=== PATIENT | female | born 1950 | race Caucasian/White ===

== ENCOUNTER 2016-09-30 12:08 | Emergency (ER) | payer OTHER ==
[~2016-09-30] VITALS: Ht 165.1 cm; Wt 119.3 kg
[~2016-09-30 12:08] MED LIST: ACET325T9 PO; ALPR0.25 PO; AMLO5TAB2 PO; AZIT250T6 PO; CYCL5TAB PO; DIAZ5TAB PO; DICL1PAT4 TD; DICY20TA3 PO; DIPH25CA58 PO; DOXY100T PO; DULO60CA6 PO; ENOX100D SQ; EZET1TAB18 PO; EZET1TAB5 PO; FLUDROCORTISONE ACETATE PO; FLUT1DIS3 IH; Guaifenesin/Dextromethorphan PO; HYDR-2666 PO; HYDR-2679 PO; HYDR-971 PO; Hydrocodone Bit/Acetaminophen PO; INSU100I18 SQ; INSU100V13 SQ; Ipratropium/Albuterol Sulfate NEB; LISI40TA PO; LUBI8CAP3 PO; MECL25TA3 PO; METF500T3 PO; METF750T2 PO; METO100T11 PO; METO25TA9 PO; MONT10TA6 PO; NITR100C62 PO; NYST60PO TP; ONDA4TAB7 PO; PRED-220 PO; PRED20TA PO; RANI150T6 PO; SIME80TA PO; TIOT18CA IH; WARF10TA PO; XOPENEX HFA15 GM IH
[2016-09-30] MEDS ORDERED: PROCHLORPERAZINE 10 MG/2 ML VIAL. IV ONE (14:00)
[2016-09-30] MEDS ORDERED: MECLIZINE HCL 12.5 MG TABLET. PO ONE (14:00)
[2016-09-30] MEDS ORDERED: ACETAMINOPHEN 500 MG TABLET PO ONE (14:00)
--- NOTE | 2016-09-30 14:15 | PHYS DOC ---
Past Medical History Past Medical History: Asthma, COPD, Diabetes-Type II, High Cholesterol, Hypertension, Migraines, Other Additional Past Medical Histor: sleep apnea; PE, chronic abdominal pain Past Surgical History: Appendectomy, Cholecystectomy, Colectomy, Hysterectomy Additional Past Surgical Histo: breast biopsies; bx cataracts; bx shoulders; umbilical hernia Alcohol Use: None Drug Use: None Adult General Chief Complaint Chief Complaint: DIZZY/LIGHT HEADED HPI HPI Patient is a 66 year old female who presents with 5 months of headache and intermittent dizziness. She states she has constant headache that fluctuates in intensity, but never resolves. She states these headaches do not wake her from sleep, but she does wake up with headaches. She takes Tylenol with some intermittent improvement. She has bilateral anterior achy headache. States dizziness usually lasts seconds at a time and is associated with position changes of her head. States she was evaluated for this prior and treated with meclizine with some improvement in her dizziness. She has not since followed up with anyone other than her primary care doctor for this. States she has not had imaging during her symptoms. She denies nausea or vomiting, numbness, tingling, weakness, vision changes, resting dizziness, chest pain, palpitations, orthopnea , exertional symptoms. His neck pain or manipulation. Review of Systems Review of Systems Constitutional: Denies fever or chills [] Eyes: Denies change in visual acuity, redness, or eye pain [] HENT: Denies nasal congestion or sore throat [] Respiratory: Denies cough or shortness of breath [] Cardiovascular: No additional information not addressed in HPI [] GI: Denies abdominal pain, nausea, vomiting, bloody stools or diarrhea [] : Denies dysuria or hematuria [] Musculoskeletal: Denies back pain or joint pain [] Integument: Denies rash or skin lesions [] Neurologic: Denies focal weakness or sensory changes [] Endocrine: Denies polyuria or polydipsia [] Current Medications Current Medications Current Medications Medications (Trade) Dose Ordered Sig/Irish Start Time Stop Time Status Last Admin Dose Admin Acetaminophen (Tylenol) 500 mg 1X ONCE 09/30/16 14:00 09/30/16 14:01 DC 09/30/16 14:04 500 MG Meclizine HCl (Antivert) 25 mg 1X ONCE 09/30/16 14:00 09/30/16 14:01 DC 09/30/16 14:04 25 MG Morphine Sulfate 2 mg 1X ONCE 09/30/16 17:15 09/30/16 17:16 DC 09/30/16 17:41 2 MG Prochlorperazine Edisylate (Compazine) 10 mg 1X ONCE 09/30/16 14:00 09/30/16 14:01 DC 09/30/16 15:06 10 MG Allergies Allergies Allergies Coded Allergies Type Severity Reaction Last Updated Verified Penicillins Allergy Intermediate itching, dry mouth, tongue swells 12/16/15 Yes Sulfa (Sulfonamide Antibiotics) Allergy Intermediate ITCHING DRY MOUTH, hives/ swelling 12/16/15 Yes fentanyl Allergy Intermediate 12/16/15 Yes hydromorphone HCl Allergy Intermediate MORPHINE OK 12/16/15 Yes methylprednisolone Allergy Intermediate RED MAN SYNDROME 03/22/16 No prednisone Allergy Intermediate RED MED SYNDROME 03/22/16 No oxycodone HCl Adverse Reaction Intermediate "i FEEL LIKE I HAVE WORMS IN ME" Yes Physical Exam Physical Exam Constitutional: Well developed, well nourished, no acute distress, non-toxic appearance. [] HENT: Normocephalic, atraumatic, bilateral external ears normal, oropharynx moist, no oral exudates, nose normal. [] Eyes: PERRLA, EOMI, conjunctiva normal, no discharge. [] Neck: Normal range of motion, supple. [] Cardiovascular:Heart rate regular rhythm [] Lungs & Thorax: Bilateral breath sounds clear to auscultation [] Abdomen: Bowel sounds normal, soft, no tenderness. [] Skin: Warm, dry, no erythema, no rash. [] Back: Normal range of motion. [] Extremities: ROM intact, no edema. [] Neurologic: Alert and oriented X 3, normal motor function, normal sensory function, no focal deficits noted, cranial nerves II through XII intact, no extremity drift, normal Romberg, ambulatory with steady gait. [] Psychologic: Affect normal, judgement normal, mood normal. [] Current Patient Data Vital Signs Vital Signs Date Time Temp Pulse Resp B/P Pulse Ox O2 Delivery O2 Flow Rate FiO2 09/30/16 17:45 77 22 128/62 Room Air 09/30/16 17:41 95 09/30/16 13:15 98.1 98.1 Lab Values Laboratory Tests Test 09/30/16 14:35 09/30/16 15:57 White Blood Count 7.5x10^3/uL (4.0-11.0) Red Blood Count 4.73x10^6/uL (3.50-5.40) Hemoglobin 13.1g/dL (12.0-15.5) Hematocrit 40.1% (36.0-47.0) Mean Corpuscular Volume 85fL (79-100) Mean Corpuscular Hemoglobin 28pg (25-35) Mean Corpuscular Hemoglobin Concent 33g/dL (31-37) Red Cell Distribution Width 15.5% (11.5-14.5) H Platelet Count 271x10^3/uL (140-400) Neutrophils (%) (Auto) 54% (31-73) Lymphocytes (%) (Auto) 37% (24-48) Monocytes (%) (Auto) 6% (0-9) Eosinophils (%) (Auto) 2% (0-3) Basophils (%) (Auto) 1% (0-3) Neutrophils # (Auto) 4.0x10^3uL (1.8-7.7) Lymphocytes # (Auto) 2.7x10^3/uL (1.0-4.8) Monocytes # (Auto) 0.4x10^3/uL (0.0-1.1) Eosinophils # (Auto) 0.2x10^3/uL (0.0-0.7) Basophils # (Auto) 0.1x10^3/uL (0.0-0.2) Sodium Level 136mmol/L (136-145) Potassium Level 3.5mmol/L (3.5-5.1) Chloride Level 99mmol/L (98-107) Carbon Dioxide Level 28mmol/L (21-32) Anion Gap 9 (6-14) Blood Urea Nitrogen 17mg/dL (7-20) Creatinine 0.8mg/dL (0.6-1.0) Estimated GFR (Cockcroft-Gault) 72.0 Glucose Level 277mg/dL (70-99) H Calcium Level 9.0mg/dL (8.5-10.1) Prothrombin Time 26.1SEC (11.7-14.0) H Prothrombin Time INR 2.6 (0.8-1.1) H PTT 43SEC (24-38) H Laboratory Tests 09/30/16 14:35 Laboratory Tests 09/30/16 14:35 EKG EKG EKG as interpreted by me as normal sinus rhythm, rate 85, no ST-T changes, normal intervals, no ectopy Radiology/Procedures Radiology/Procedures Head CT without contrast Impression: There is no evidence of an acute intracranial abnormality. DICTATED and SIGNED BY: HODA HOGAN MD DATE: 09/30/16 1527 Course & Med Decision Making Course & Med Decision Making Pertinent Labs and Imaging studies reviewed. (See chart for details) Workup is unremarkable including therapeutic INR. She is feeling better after medications and would like to go home. Encouraged follow-up with primary care and neurology clinic. Return precautions given. She understands and agrees plan. Dragon Disclaimer Dragon Disclaimer This electronic medical record was generated, in whole or in part, using a voice recognition dictation system. Departure Departure Impression: Primary Impression: Headache Additional Impression: Dizziness Disposition: 01 HOME, SELF-CARE Condition: STABLE Referrals: Meagan ALVAREZ MD (PCP) RUSS TINAJERO MD Patient Instructions: General Headache Without Cause, [id number], Vertigo, [id number] Additional Instructions: Take meclizine to help with dizziness. Take tylenol as needed for pain. Follow up with your primary care doctor and neurology clinic. Please call for appointment. Return for any concerns. Scripts Meclizine Hcl 25 Mg Tablet1 Tab PO PRN TID PRN DIZZINESS #20 TAB Prov:Kenan CURRY MD 09/30/16 Problem Qualifiers Primary Impression: Headache Headache type: unspecified Headache chronicity pattern: chronic headache Intractability: not intractable Qualified Code: R51 - Headache Kenan CURRY MD Sep 30, 2016 14:15
[2016-09-30 14:55] LABS: BASO # 0.1 x10^3/uL (0.0-0.2); BASO % 1 % (0-3); EOS % 2 % (0-3); HEMATOCRIT 40.1 % (36.0-47.0); HEMOGLOBIN 13.1 g/dL (12.0-15.5); LYMPH # 2.7 x10^3/uL (1.0-4.8); LYMPH % 37 % (24-48); MEAN CORPUSCULAR HEMOGLOBIN 28 pg (25-35); MEAN CORPUSCULAR HGB CONC 33 g/dL (31-37); MEAN CORPUSCULAR VOLUME 85 fL (79-100); MONO % 6 % (0-9); NEUT % 54 % (31-73); PLATELET COUNT 271 x10^3/uL (140-400); RED BLOOD COUNT 4.73 x10^6/uL (3.50-5.40); RED CELL DISTRIBUTION WIDTH 15.5 % (11.5-14.5); WHITE BLOOD COUNT 7.5 x10^3/uL (4.0-11.0)
[2016-09-30 15:13] LABS: CREATININE 0.8 mg/dL (0.6-1.0); POTASSIUM 3.5 mmol/L (3.5-5.1)
--- NOTE | 2016-09-30 15:32 | RAD ---
Head CT without contrast History:5 month anterior headache; intermittent dizziness Technique: Noncontrast CT imaging was acquired of the head. [facility] Compliance Statement: One or more of the following individualized dose reduction techniques were utilized for this examination: 1. Automated exposure control 2. Adjustment of the mA and/or kV according to patient size 3. Use of iterative reconstruction technique Comparison: 04/10/2013 Findings: The ventricles, sulci, and cisterns are within normal limits in size and configuration. There is no significant mass-effect, midline shift, or abnormal extra-axial fluid collection. There is no evidence of acute parenchymal or extraaxial hemorrhage. The visualized paranasal sinuses and mastoid air cells are aerated. No significant osseous abnormality is identified. Impression: There is no evidence of an acute intracranial abnormality.
[2016-09-30 16:15] LABS: INR 2.6 (0.8-1.1); PROTHROMBIN TIME PATIENT 26.1 SEC (11.7-14.0)
[2016-09-30] MEDS ORDERED: MECL25TA3 PO (17:10)
[2016-09-30] MEDS ORDERED: MORPHINE SULFATE 2 MG/ML DISP.SYRIN. IV ONE (17:15)
[2016-09-30 17:45] VITALS: BP 128/62
--- NOTE | 2016-10-01 08:01 | EKG ---
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
== END 2016-09-30 17:50 | disposition home or self-care (01) ==
LOC: ER 12:08
DX: R42 Dizziness and giddiness (principal); R51 Headache; M54.2 Cervicalgia; E11.9 Type 2 diabetes mellitus without complications; E78.00 Pure hypercholesterolemia, unspecified; I10 Essential (primary) hypertension; J44.9 Chronic obstructive pulmonary disease, unspecified; G89.29 Other chronic pain; J45.909 Unspecified asthma, uncomplicated; G43.909 Migraine, unspecified, not intractable, without status migrainosus; G47.30 Sleep apnea, unspecified; Z90.710 Acquired absence of both cervix and uterus; Z90.49 Acquired absence of other specified parts of digestive tract; Z98.42 Cataract extraction status, left eye; Z98.41 Cataract extraction status, right eye; Z86.711 Personal history of pulmonary embolism; Z88.2 Allergy status to sulfonamides; Z88.5 Allergy status to narcotic agent; Z88.0 Allergy status to penicillin
CPT/HCPCS: 36415; 70450; 80048; 85027; 85610; 85730; 93005; 96374; 96375; 99285; J0780; J2270; J8597

== ENCOUNTER 2016-10-04 13:46 | Inpatient (IN) | payer OTHER ==
[~2016-10-04] VITALS: Ht 165.1 cm; Wt 108.2 kg
[2016-10-04] MEDS ORDERED: IPRATRPIUM/ALBUTEROL 0.5/2.5MG 3 ML NEBU. NEB ONE (14:45)
[2016-10-04] MEDS ORDERED: IV NORMAL SALINE 500ML BAG 500 ML IV ONE (14:45)
[2016-10-04] MEDS ORDERED: DIPHENHYDRAMINE HCL 25 MG CAPSULE PO ONE (14:45)
[2016-10-04] MEDS ORDERED: PREDNISONE 20 MG TABLET PO ONE (14:45)
--- NOTE | 2016-10-04 15:00 | EKG ---
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
[2016-10-04] MEDS ORDERED: ALBUTEROL SULFATE 2.5 MG/3 ML NEBU. ONE (15:26)
[2016-10-04] MEDS ORDERED: ALBUTEROL SULFATE 2.5 MG/3 ML NEBU. CONT NEB ONE (15:30)
--- NOTE | 2016-10-04 15:40 | PHYS DOC ---
Past Medical History Past Medical History: Asthma, COPD, Diabetes-Type II, High Cholesterol, Hypertension, Migraines, Other Additional Past Medical Histor: sleep apnea; PE, chronic abdominal pain Past Surgical History: Appendectomy, Cholecystectomy, Colectomy, Hysterectomy Additional Past Surgical Histo: breast biopsies; bx cataracts; bx shoulders; umbilical hernia Alcohol Use: None Drug Use: None Adult General Chief Complaint Chief Complaint: SHORTNESS OF BREATH HPI HPI Patient is a 66 year old female who presents with cough and difficulty breathing. States she has been having a dry cough for 1-2 weeks associated with rhinorrhea, nasal congestion, body aches, and chills. States most of her symptoms have improved, other than persistent cough and difficulty breathing. Difficulty breathing has developed over the past few days. She has associated diffuse chest tightness that is typical for her symptoms when she gets like this. She denies sputum production, sore throat, sick contacts, nausea or vomiting, diarrhea, hemoptysis, leg pain or swelling, orthopnea. Has been using inhalers at home without complete relief in symptoms. Review of Systems Review of Systems Constitutional: Denies fever or chills [] Eyes: Denies change in visual acuity, redness, or eye pain [] HENT: Denies nasal congestion or sore throat [] Respiratory: Has cough and shortness of breath [] Cardiovascular: No additional information not addressed in HPI [] GI: Denies abdominal pain, nausea, vomiting, bloody stools or diarrhea [] : Denies dysuria or hematuria [] Musculoskeletal: Denies back pain or joint pain [] Integument: Denies rash or skin lesions [] Neurologic: Denies headache, focal weakness or sensory changes [] Endocrine: Denies polyuria or polydipsia [] Current Medications Current Medications Current Medications Medications (Trade) Dose Ordered Sig/Irish Start Time Stop Time Status Last Admin Dose Admin Albuterol Sulfate (Ventolin Neb Soln) 10 mg 1X ONCE 10/04/16 15:30 10/04/16 15:31 DC 10/04/16 15:30 10 MG Albuterol/ Ipratropium 3 ml 3 ml 1X ONCE 10/04/16 14:45 10/04/16 14:53 DC 10/04/16 15:11 3 ML Diphenhydramine HCl (Benadryl) 25 mg 1X ONCE 2/16/17 14:45 10/04/16 14:53 DC 10/04/16 16:59 25 MG Prednisone (Prednisone) 60 mg 1X ONCE 10/04/16 14:45 10/04/16 14:56 DC 10/04/16 16:59 60 MG Sodium Chloride (Iv Sodium Chloride 0.9% 500ml Bag) 500 ml @ 500 mls/hr 1X ONCE 10/04/16 14:45 10/04/16 15:44 DC 10/04/16 17:00 500 MLS/HR Allergies Allergies Allergies Coded Allergies Type Severity Reaction Last Updated Verified Penicillins Allergy Intermediate itching, dry mouth, tongue swells 12/16/15 Yes Sulfa (Sulfonamide Antibiotics) Allergy Intermediate ITCHING DRY MOUTH, hives/ swelling 12/16/15 Yes fentanyl Allergy Intermediate 12/16/15 Yes hydromorphone HCl Allergy Intermediate MORPHINE OK 12/16/15 Yes methylprednisolone Allergy Intermediate RED MAN SYNDROME 03/22/16 No prednisone Allergy Intermediate RED MED SYNDROME 03/22/16 No oxycodone HCl Adverse Reaction Intermediate "i FEEL LIKE I HAVE WORMS IN ME" Yes Physical Exam Physical Exam Constitutional: Well developed, well nourished, moderate distress, non-toxic appearance. [] HENT: Normocephalic, atraumatic, bilateral external ears normal, oropharynx moist, no oral exudates, nose normal. [] Eyes: PERRLA, EOMI, conjunctiva normal, no discharge. [] Neck: Normal range of motion, supple, no stridor. [] Cardiovascular:Heart rate regular rhythm [] Lungs & Thorax: Bilateral wheezing with good aeration, mild tachypnea, no crackles [] Abdomen: Bowel sounds normal, soft, no tenderness. [] Skin: Warm, dry, no erythema, no rash. [] Back: No tenderness, no CVA tenderness. [] Extremities: No tenderness, ROM intact, no edema. [] Neurologic: Alert and oriented X 3, normal motor function, normal sensory function, no focal deficits noted. [] Psychologic: Affect normal, judgement normal, mood normal. [] Current Patient Data Vital Signs Vital Signs Date Time Temp Pulse Resp B/P Pulse Ox O2 Delivery O2 Flow Rate FiO2 10/04/16 15:33 Room Air 10/04/16 15:24 102 225/97 93 10/04/16 14:10 98.3 16 98.3 Lab Values Laboratory Tests Test 10/04/16 13:25 Influenza Type A Antigen Negative (NEGATIVE) Influenza Type B Antigen Negative (NEGATIVE) EKG EKG EKG as interpreted by me as normal sinus rhythm, rate 98, no ST-T changes, normal intervals, no ectopy Radiology/Procedures Radiology/Procedures Chest xray as interpreted by me with no acute cardiopulmonary disease process Course & Med Decision Making Course & Med Decision Making Pertinent Labs and Imaging studies reviewed. (See chart for details) Workup is unremarkable other than mild hypokalemia which is replaced by mouth. She has persistent dyspnea despite albuterol treatments here. She has a few episodes of brief syncope-type spells. One of these was witnessed by me, where she closes her eyes, has calmed breathing, lays in bed relaxed, and acts as if she is asleep. This lasts for approximately 1 minute, then she wakes as if nothing happened. With persistent dyspnea, will admit for asthma exacerbation. Discussed care with Dr. Alvarez, who will admit. Dragon Disclaimer Dragon Disclaimer This electronic medical record was generated, in whole or in part, using a voice recognition dictation system. Departure Departure Impression: Primary Impression: Asthma exacerbation Additional Impression: Hypokalemia Disposition: ADMITTED INPATIENT Condition: STABLE Referrals: Meagan ALVAREZ MD (PCP) Problem Qualifiers Kenan CURRY MD Oct 04, 2016 15:39
--- NOTE | 2016-10-04 15:54 | RAD ---
INDICATION: dyspnea COMPARISON: 03/22/2016 FINDINGS: Single view of chest obtained. Bilateral postoperative changes to the shoulders. Hypoexpanded exam with mild interstitial prominence bilaterally. No definite focal airspace consolidation. Degenerative changes spine IMPRESSION: Hypoexpanded appearance of the lungs with interstitial prominence. Could be from vascular crowding but mild vascular congestion is possible.
[2016-10-04 15:56] LABS: OBC FLU VALID
[2016-10-04 16:35] LABS: BASO % 1 % (0-3); EOS % 2 % (0-3); HEMATOCRIT 43.8 % (36.0-47.0); HEMOGLOBIN 14.2 g/dL (12.0-15.5); LYMPH # 3.5 x10^3/uL (1.0-4.8); LYMPH % 43 % (24-48); MEAN CORPUSCULAR HEMOGLOBIN 28 pg (25-35); MEAN CORPUSCULAR HGB CONC 33 g/dL (31-37); MEAN CORPUSCULAR VOLUME 85 fL (79-100); MONO % 7 % (0-9); NEUT % 48 % (31-73); PLATELET COUNT 266 x10^3/uL (140-400); RED BLOOD COUNT 5.14 x10^6/uL (3.50-5.40); RED CELL DISTRIBUTION WIDTH 15.4 % (11.5-14.5); WHITE BLOOD COUNT 8.3 x10^3/uL (4.0-11.0)
[2016-10-04 16:43] LABS: INR 1.3 (0.8-1.1); PROTHROMBIN TIME PATIENT 15.4 SEC (11.7-14.0)
[2016-10-04] MEDS: ONDANSETRON PF 4 MG/2 ML VIAL. IV PRN (16:59)
[2016-10-04 17:01] LABS: CALCIUM 9.2 mg/dL (8.5-10.1); CREATININE 0.8 mg/dL (0.6-1.0); POTASSIUM 3.1 mmol/L (3.5-5.1)
[2016-10-04] MEDS ORDERED: POTASSIUM CHLORIDE 20 MEQ TABLET.ER. PO ONE (17:15)
--- NOTE | 2016-10-04 18:16 | ACF ---
Admission Forms Criteria ASTHMA Clinical Indications for Admission to Inpatient Care (Place 'X' for any and all applicable criteria): Admission is indicated for ANY ONE of the following (1)(2)(3)(4)(5): [ ]I. Absent or markedly diminished breath sounds (silent chest) [ ]II. Oxygen saturation < 92% [ ]III. PaCO2 = / > 42 mm Hg (5.6 kPa) [ ]IV. Peak expiratory flow rate < 40% of predicted or personal best after treatment. [ ]V. Peak expiratory flow rate < 33% of predicted or personal before after treatment [ ]. Change in mental status [ ]VII. Ventilatory support required [ ]VIII. PaO2 < 60 mm Hg (8.0 kPa) [ ]IX. Cyanosis [ ]X. Cardiac dysrhythmia (e.g., bradycardia) [ ]XI. Hemodynamic instability [ ]XII. Radiographic evidence of complication requiring inpatient treatment (e.g., pneumonia, pneumothorax) [X]XIII. Inpatient admission required rather than observation care (also use Asthma: Observation Care guideline as appropriate) because of ANY ONE of the following: [ ]a) Respiratory finding that is severe or persistent (eg, dyspnea, tachypnea, accessory muscle use) [ ]b) Airflow measurements less than 60% of predicted or personal best that persist (e.g., over 24 hours) or worsen despite treatments [ ]c) Supplemental oxygen or respiratory treatments for over 24 hours that are performable only in acute inpatient setting [X]d) Other condition, treatment or monitoring requiring inpatient admission. Extended stay beyond goal length of stay may be needed for (26)(27)(28): [ ]a) Severe respiratory failure (23) (29) (30) [ ]b) Secondary causes and complications (25) [ ]c) Status asthmaticus [ ]d) Chronic obstructive asthma [ ]e) Older patients (29) [ ]f) Slow resolution [ ]g) Clinically significant exacerbation of comorbidities (eg, jacques. heart failure, atrial fibrillation) The original [employer] content created by [employer] has been revised. The portions of the content which have been revised are identified through the use of italic text or in bold, and [facility] [employer] has neither reviewed nor approved the modified material. All other unmodified content is copyright [employer] [facility] Please see references footnoted in the original [facility] edition 2016 Admission Criteria Met?: Yes AYDE COLEMAN Oct 04, 2016 18:16
[2016-10-04 19:00] VITALS: BP 131/50
[2016-10-04] MEDS ORDERED: INSU100I17 SQ (19:38)
[2016-10-04] MEDS ORDERED: INSU100V13 SQ (19:38)
[2016-10-04] MEDS ORDERED: PNEUMOCOCCAL VAX SCREEN BY RX. MC ONE (20:30)
[2016-10-04] MEDS ORDERED: GUAIFENESIN DM 200MG/20MG 10 ML SYRUP. PO PRN (20:45)
[2016-10-04] MEDS ORDERED: MECLIZINE HCL 12.5 MG TABLET. PO PRN (21:00)
[2016-10-04] MEDS: LISINOPRIL 20 MG TABLET PO SCH (21:00)
[2016-10-04] MEDS: AMLODIPINE BESYLATE 5 MG TABLET PO SCH (21:00)
[2016-10-04] MEDS ORDERED: ALBUTEROL SULFATE 2.5 MG/3 ML NEBU. NEB PRN (21:00)
[2016-10-04] MEDS: METOPROLOL SUCC 24HR ER 25 MG TAB.ER.24H. PO SCH (21:00)
[2016-10-04] MEDS: BUDESONIDE 0.5 MG/2 ML NEBU NEB SCH (21:46)
[2016-10-04] MEDS: EZETIMIBE 10 MG TABLET PO SCH (22:06)
[2016-10-04] MEDS: FAMOTIDINE 20 MG TABLET. PO SCH (22:06)
[2016-10-04] MEDS: LUBIPROSTONE 8 MCG CAPSULE PO SCH (22:06)
[2016-10-04] MEDS: DICYCLOMINE HCL 10 MG CAPSULE PO SCH (22:06)
[2016-10-04] MEDS: MONTELUKAST SODIUM 10 MG TABLET. PO SCH (22:06)
[2016-10-04] MEDS: SIMVASTATIN 10 MG TABLET PO SCH (22:06)
[2016-10-04] MEDS: WARFARIN 10 MG TABLET. PO SCH (22:07)
[2016-10-04] MEDS: CYCLOBENZAPRINE 10 MG TABLET. PO SCH (22:07)
[2016-10-04] MEDS: IPRATRPIUM/ALBUTEROL 0.5/2.5MG 3 ML NEBU. NEB SCH (22:11)
[2016-10-04 23:03] VITALS: BP 149/56
[2016-10-04] MEDS: INSULIN DETEMIR 300 UNITS/3 ML INSULN.PEN. SQ SCH (23:48)
[2016-10-04] MEDS: ACETAMINOPHEN 325 MG TABLET. PO PRN (23:50)
[2016-10-05 03:00] VITALS: BP 195/93
[2016-10-05] MEDS: ACETAMINOPHEN 325 MG TABLET. PO PRN ×2 (06:35→21:31)
[2016-10-05] MEDS: INSULIN ASPART 300 UNITS/3 ML INSULN.PEN SQ SCH ×3 (07:30→17:06)
[2016-10-05 07:32] VITALS: BP 133/62
[2016-10-05] MEDS: IPRATRPIUM/ALBUTEROL 0.5/2.5MG 3 ML NEBU. NEB SCH ×5 (07:57→20:15)
[2016-10-05] MEDS: BUDESONIDE 0.5 MG/2 ML NEBU NEB SCH ×2 (07:57→20:15)
[2016-10-05] MEDS: INSULIN DETEMIR 300 UNITS/3 ML INSULN.PEN. SQ SCH ×2 (08:00→21:38)
[2016-10-05] MEDS: FAMOTIDINE 20 MG TABLET. PO SCH ×2 (08:49→20:21)
[2016-10-05] MEDS: CYCLOBENZAPRINE 10 MG TABLET. PO SCH ×3 (08:49→20:21)
[2016-10-05] MEDS: LUBIPROSTONE 8 MCG CAPSULE PO SCH ×2 (08:50→16:58)
[2016-10-05] MEDS: METOPROLOL SUCC 24HR ER 25 MG TAB.ER.24H. PO SCH (08:50)
[2016-10-05] MEDS: LISINOPRIL 20 MG TABLET PO SCH (08:50)
[2016-10-05] MEDS: AMLODIPINE BESYLATE 5 MG TABLET PO SCH (08:50)
[2016-10-05] MEDS: DICYCLOMINE HCL 10 MG CAPSULE PO SCH ×3 (08:50→20:22)
[2016-10-05] MEDS: DULOXETINE HCL 30 MG CAPSULE.DR. PO SCH (08:55)
[2016-10-05] MEDS ORDERED: PNEUMOC VACCINE 13-VALENT 0.5 ML DISP.SYRIN. VAX IM ONE (09:00)
[2016-10-05] MEDS ORDERED: NON FORMULARY ITEM (Tiotropium Bromide (Spiriva) 18 MCG) IH SCH (09:00)
[2016-10-05] MEDS: ONDANSETRON PF 4 MG/2 ML VIAL. IV PRN (09:15)
[2016-10-05 11:05] VITALS: BP 129/60
[2016-10-05] MEDS: ENOXAPARIN ** NOTE DOSE ** SYRINGE SQ SCH ×2 (14:46→20:25)
[2016-10-05 15:05] VITALS: BP 122/48
[2016-10-05] MEDS: WARFARIN 10 MG TABLET. PO SCH (16:59)
--- NOTE | 2016-10-05 17:07 | PDOC1 ---
History and Physical Date of Admission Date of Admission DATE: 10/04/16 TIME: 16:54 Identification/Chief Complaint Chief Complaint She was in the ER Saturday with viral symptoms and then started wheezing and came back to ER and admitted with asthma exac. She received steroids in the ER and is hyperglycemic but her breathing is much improved since admission but she has not yet been out of bed. She was able to sleep last night and her chest tightness has resolved Source Source: Patient History of Present Illness History of Present Illness as above Past Medical History Cardiovascular: CAD, HTN Pulmonary: Asthma, COPD, Pulmonary embolus, Other GI: GERD Endocrine: Diabetes, Other Past Surgical History Past Surgical History: Appendectomy, Breast Biopsy, Cholecystectomy, Cataract Removal, Hernia Repair, Tonsillectomy, Hysterectomy, Other (multiple abdominal surgeries) Family History Family History: Coronary Artery Disease, Diabetes Social History ALCOHOL: none Drugs: None Current Problem List Problem List Problems Medical Problems: (1) Asthma exacerbation Status: Acute (2) Hypokalemia Status: Acute Problems: Current Medications Current Medications Current Medications Albuterol/ Ipratropium 3 ml 3 ml 1X ONCE NEB Last administered on 10/04/16 15 :11; Start 10/04/16 at 14:45; Stop 10/04/16 at 14:53; Status DC Sodium Chloride (Iv Sodium Chloride 0.9% 500ml Bag) 500 ml @ 500 mls/hr 1X ONCE IV Last administered on 10/04/16 17:00; Start 10/04/16 at 14:45; Stop at 15:44; Status DC Diphenhydramine HCl (Benadryl) 25 mg 1X ONCE PO Last administered on 16:59; Start 10/04/16 at 14:45; Stop 10/04/16 at 14:53; Status DC Prednisone (Prednisone) 60 mg 1X ONCE PO Last administered on 10/04/16 16:59 ; Start 10/04/16 at 14:45; Stop 10/04/16 at 14:56; Status DC Albuterol Sulfate (Ventolin Neb Soln) 2.5 mg STK-MED ONCE .ROUTE ; Start at 15:26; Stop 10/04/16 at 15:27; Status DC Albuterol Sulfate (Ventolin Neb Soln) 10 mg 1X ONCE CONT NEB Last administered on 10/04/16 15:30; Start 10/04/16 at 15:30; Stop 10/04/16 at 15:31 ; Status DC Ondansetron HCl (Zofran) 4 mg PRN Q8HRS PRN IV NAUSEA/VOMITING Last administered on 10/05/16 09:15; Start 10/04/16 at 16:00; Stop 10/05/16 at 15:59 ; Status DC Acetaminophen (Tylenol) 650 mg PRN Q4HRS PRN PO FEVER Last administered on 10/05 06:35; Start 10/04/16 at 16:00; Stop 10/05/16 at 15:59; Status DC Potassium Chloride (Klor-Con) 40 meq 1X ONCE PO Last administered on 17:15; Start 10/04/16 at 17:15; Stop 10/04/16 at 17:16; Status DC Pneumococcal Polyvalent Vaccine (Do NOT chart on this placeholder) 1 each 1X ONCE MC ; Start 10/04/16 at 20:30; Stop 10/04/16 at 20:31; Status UNV Pneumoccal 13-Valent Conj Vacc (Prevnar 13) 0.5 ml ONCE ONCE VAX IM Last administered on 10/05/16 08:57; Start 10/05/16 at 09:00; Stop 10/05/16 at 09:01 ; Status DC Amlodipine Besylate (Norvasc) 5 mg DAILY PO Last administered on 10/05/16 08: 50; Start 10/04/16 at 21:00 Diphenhydramine HCl (Benadryl) 25 mg PRN Q4HRS PRN PO NAUSEA 2ND CHOICE; Start 10/04/16 at 20:45 Insulin Aspart (Novolog) 13 units TIDAC SQ Last administered on 10/05/16 12:45 ; Start 10/05/16 at 07:30 Lisinopril (Prinivil) 20 mg DAILY PO Last administered on 10/05/16 08:50; Start 10/04/16 at 21:00 Lubiprostone (Amitiza) 24 mcg BIDWMEALS PO Last administered on 10/05/16 08:50 ; Start 10/04/16 at 21:00 Metoprolol Succinate (Toprol Xl) 25 mg DAILY PO Last administered on 10/05/16 08:50; Start 10/04/16 at 21:00 Montelukast Sodium (Singulair) 10 mg HS PO Last administered on 10/04/16 22:06 ; Start 10/04/16 at 21:00 Warfarin Sodium (Coumadin) 10 mg DAILY16 PO Last administered on 10/04/16 22: 07; Start 10/04/16 at 21:00 Cyclobenzaprine HCl (Flexeril) 5 mg TID PO Last administered on 10/05/16 14:47 ; Start 10/04/16 at 21:00 Dicyclomine HCl (Bentyl) 20 mg TID PO Last administered on 10/05/16 14:46; Start 10/04/16 at 21:00 Duloxetine HCl (Cymbalta) 90 mg DAILY PO Last administered on 10/05/16 08:55; Start 10/05/16 at 09:00 Simvastatin (Zocor) 10 mg QHS PO Last administered on 10/04/16 22:06; Start at 21:00 Budesonide (Pulmicort) 0.5 mg RTBID NEB Last administered on 10/05/16 07:57; Start 10/04/16 at 21:00 Insulin Detemir (Levemir) 22 units QHS SQ Last administered on 10/04/16 23:48 ; Start 10/04/16 at 21:00 Insulin Detemir (Levemir) 44 units DAILY08 SQ Last administered on 10/05/16 08 :00; Start 10/05/16 at 08:00 Albuterol Sulfate (Ventolin Neb Soln) 2.5 mg PRN BID PRN NEB SHORTNESS OF BREATH Last administered on 10/05/16 13:23; Start 10/04/16 at 21:00 Meclizine HCl (Antivert) 25 mg PRN TID PRN PO DIZZINESS; Start 10/04/16 at 21: 00 Ondansetron HCl (Zofran Odt) 4 mg PRN BID PRN PO NAUSEA/VOMITING; Start at 20:45 Famotidine (Pepcid) 20 mg BID PO Last administered on 10/05/16 08:49; Start at 21:00 Non-Formulary Medication 18 mcg DAILY IH ; Start 10/05/16 at 09:00; Status UNV Guaifenesin (Robitussin Dm) 10 ml PRN Q6HRS PRN PO COUGH Last administered on 06:35; Start 10/04/16 at 20:45 Albuterol/ Ipratropium (Duoneb) 3 ml Q4HRS W/A NEB Last administered on 15:21; Start 10/04/16 at 22:00 EZETIMIBE (Zetia) 10 mg QHS PO Last administered on 10/04/16 22:06; Start at 21:00 Warfarin Sodium (Coumadin Per Physician) 1 each PRN DAILY PRN MC SEE COMMENTS; Start 10/04/16 at 21:00 Enoxaparin Sodium (Lovenox Per Pharmacy Treatment Dosing) 1 each PRN DAILY PRN MC SEE COMMENTS; Start 10/05/16 at 13:00 Enoxaparin Sodium (Lovenox 120mg Syringe) 110 mg Q12HR SQ Last administered on 10/05/16 14:46; Start 10/05/16 at 13:00 Active Scripts Active Meclizine Hcl 25 Mg Tablet 1 Tab PO PRN TID PRN Meclizine Hcl 25 Mg Tablet 1 Tab PO PRN TID When necessary for dizziness Zofran (Ondansetron Hcl) 4 Mg Tablet 4 Mg PO BID PRN Cyclobenzaprine Hcl 5 Mg Tablet 5 Mg PO TID Amitiza (Lubiprostone) 8 Mcg Capsule 24 Mcg PO BIDWMEALS Benadryl (Diphenhydramine Hcl) 25 Mg Capsule 25 Mg PO PRN Q4HRS PRN [Ipratropium/Albuterol Sulfate] 3 ML Nebu 3 Ml NEB RTQID [Guaifenesin/Dextromethorphan] 10 ML Syrup 10 Ml PO PRN Q4HRS PRN Reported Novolog Flexpen (Insulin Aspart) 100 Unit/1 Ml Insuln.pen 13 Unit SQ TIDAC Levemir (Insulin Detemir) 100 Unit/1 Ml Vial 22 Unit SQ HS Coumadin (Warfarin Sodium) 10 Mg Tablet 10 Mg PO DAILY Levemir (Insulin Detemir) 100 Unit/1 Ml Vial 44 Unit SQ DAILY08 Dicyclomine Hcl 20 Mg Tablet 1 Tab PO TID Amlodipine Besylate 5 Mg Tablet 1 Tab PO DAILY Metoprolol Succinate ( Xl ) (Metoprolol Succinate) 25 Mg Tab.er.24h 1 Tab PO DAILY Vytorin 10-10 Mg Tablet (Ezetimibe/Simvastatin) 1 Each Tablet 1 Each PO HS Xopenex Hfa (Levalbuterol Tartrate) 15 Gm Hfa.aer.ad 15 Gm IH PRN BID PRN Spiriva (Tiotropium Bristow) 18 Mcg Cap.w.dev 18 Mcg IH DAILY Advair 250-50 Diskus (Fluticasone/Salmeterol) 1 Each Disk.w.dev 1 Each IH BID94 Cymbalta (Duloxetine Hcl) 60 Mg Capsule.dr 90 Mg PO DAILY Singulair Tablet (Montelukast Sodium) 10 Mg Tablet 10 Mg PO HS Lisinopril 40 Mg Tablet 20 Mg PO DAILY Zantac (Ranitidine Hcl) 150 Mg Tablet 150 Mg PO BID Allergies Allergies: Coded Allergies: Penicillins (Verified Allergy, Intermediate, itching, dry mouth, tongue swells, 12/16/15) Sulfa (Sulfonamide Antibiotics) (Verified Allergy, Intermediate, ITCHING DRY MOUTH, hives/swelling, 12/16/15) fentanyl (Verified Allergy, Intermediate, 12/16/15) hydromorphone HCl (Verified Allergy, Intermediate, MORPHINE OK, 12/16/15) methylprednisolone (Unverified Allergy, Intermediate, RED MAN SYNDROME, 03/22/16) prednisone (Unverified Allergy, Intermediate, RED MED SYNDROME, 03/22/16) oxycodone HCl (Verified Adverse Reaction, Intermediate, "i FEEL LIKE I HAVE WORMS IN ME", 12/16/15) 06/28 TOLERATING HYDROCODONE/APAP ROS General: No: Appetite, Chills, Fatigue, Malaise, Night Sweats PSYCHOLOGICAL ROS: YES: Anxiety, Physical abuse, No: Behavioral Disorder, Concentration difficultie, Decreased libido, Depression, Disorientation, Hallucinations, Hostility, Irritablity, Memory difficulties, Mood Swings, Obsessive thoughts, Sexual abuse, Sleep disturbances , Suicidal ideation Eyes: Yes Other, Yes Uses glasses, No Blurry vision, No Decreased vision, No Double vision, No Dry eyes, No Excessive tearing, No Eye Pain, No Itchy Eyes, No Loss of vision, No Photophobia , No Scotomata, No Uses contacts HEENT: YES: Heacaches (frontal and been going on for months now), Sinus pain ALLERGY AND IMMUNOLOGY: No: Hives, Insect Bite Sensitivity, Itchy/Watery Eyes, Nasal Congestion, Post Nasal Drip, Seasonal Allergies Hematological and Lymphatic: YES: Blood Clots ENDOCRINE: No: Breast Changes, Galactorrhea, Hair Pattern Changes, Hot Flashes , Malaise/lethargy, Mood Swings, Palpitations, Polydipsia/polyuria, Skin Changes , Temperature Intolerance, Unexpected Weight Changes Breast: No New/Changing Breast Lumps, No Nipple changes, No Nipple discharge Respiratory: YES: Cough, SOB with excertion, Shortness of breath, Wheezing Cardiovascular: No Chest Pain, No Edema, No Lt Headedness, No Orthopnea, No Palpitations, No Paroxysmal Noc. Dyspnea Gastrointestinal: Yes Nausea, No Abdominal Pain, No Constipation, No Diarrhea, No Hematochezia, No Melena, No Vomiting Genitourinary: YES Incontinence, No Discharge, No Dysuria, No Flank Pain, No Frequency, No Hematuria, No Pain , No Retention, No Urgency Musculoskeletal: Yes Joint Stiffness Neurological: Yes Headaches Skin: No Acne, No Dry Skin, No Eczema, No Hair Changes, No Lumps, No Mole Changes, No Mottling, No Nail Changes, No Pruritus, No Rash, No Skin Lesion Changes Physical Exam General: Alert, Oriented X3, Cooperative HEENT: Atraumatic, PERRLA, EOMI, Mucous membr. moist/pink Lungs: Other (end expiratory wheezes) Heart: RRR Abdomen: Normal bowel sounds, Soft, No tenderness Extremities: No clubbing, No cyanosis Skin: No rashes Neuro: Normal speech Psych/Mental Status: Mental status NL, Mood NL Vitals Vitals Vital Signs Date Time Temp Pulse Resp B/P Pulse Ox O2 Delivery O2 Flow Rate FiO2 10/05/16 15:22 Room Air 10/05/16 15:05 97.5 90 20 122/48 95 97.5 Labs Labs Laboratory Tests Test 10/04/16 13:25 10/04/16 16:05 10/04/16 20:56 10/05/16 08:07 Influenza Type A Antigen Negative (NEGATIVE) Influenza Type B Antigen Negative (NEGATIVE) White Blood Count 8.3x10^3/uL (4.0-11.0) Red Blood Count 5.14x10^6/uL (3.50-5.40) Hemoglobin 14.2g/dL (12.0-15.5) Hematocrit 43.8% (36.0-47.0) Mean Corpuscular Volume 85fL (79-100) Mean Corpuscular Hemoglobin 28pg (25-35) Mean Corpuscular Hemoglobin Concent 33g/dL (31-37) Red Cell Distribution Width 15.4% (11.5-14.5) Platelet Count 266x10^3/uL (140-400) Neutrophils (%) (Auto) 48% (31-73) Lymphocytes (%) (Auto) 43% (24-48) Monocytes (%) (Auto) 7% (0-9) Eosinophils (%) (Auto) 2% (0-3) Basophils (%) (Auto) 1% (0-3) Neutrophils # (Auto) 4.0x10^3uL (1.8-7.7) Lymphocytes # (Auto) 3.5x10^3/uL (1.0-4.8) Monocytes # (Auto) 0.6x10^3/uL (0.0-1.1) Eosinophils # (Auto) 0.1x10^3/uL (0.0-0.7) Basophils # (Auto) 0.0x10^3/uL (0.0-0.2) Prothrombin Time 15.4SEC (11.7-14.0) Prothromb Time International Ratio 1.3 (0.8-1.1) Activated Partial Thromboplast Time 30SEC (24-38) Sodium Level 138mmol/L (136-145) Potassium Level 3.1mmol/L (3.5-5.1) Chloride Level 98mmol/L (98-107) Carbon Dioxide Level 27mmol/L (21-32) Anion Gap 13 (6-14) Blood Urea Nitrogen 11mg/dL (7-20) Creatinine 0.8mg/dL (0.6-1.0) Estimated GFR (Cockcroft-Gault) 72.0 Glucose Level 241mg/dL (70-99) Calcium Level 9.2mg/dL (8.5-10.1) Troponin I Quantitative < 0.017ng/mL (0.000-0.055) HV-Gwk-F-Type Natriuretic Peptide 40pg/mL (0-124) Glucose (Fingerstick) 321mg/dL (70-99) 314mg/dL (70-99) Test 10/05/16 11:42 10/05/16 16:33 Glucose (Fingerstick) 259mg/dL (70-99) 253mg/dL (70-99) Laboratory Tests Test 10/04/16 20:56 10/05/16 08:07 10/05/16 11:42 10/05/16 16:33 Glucose (Fingerstick) 321mg/dL (70-99) 314mg/dL (70-99) 259mg/dL (70-99) 253mg/dL (70-99) VTE Prophylaxis Ordered VTE Prophylaxis Devices: Yes VTE Pharmacological Prophylaxi: Yes Assessment/Plan Assessment/Plan per problem list, control blood sugar and improve lung symptoms but wheezing has significantly improved. She was subtherapeutic on her INR but has no exam evidence of DVT or PE but will bridge with Lovenox and continue warfarin with pharmacy managing dose Meagan ALVAREZ MD Oct 05, 2016 17:07
[2016-10-05 19:00] VITALS: BP 113/50
[2016-10-05] MEDS: MONTELUKAST SODIUM 10 MG TABLET. PO SCH (20:21)
[2016-10-05] MEDS: EZETIMIBE 10 MG TABLET PO SCH (20:22)
[2016-10-05] MEDS: SIMVASTATIN 10 MG TABLET PO SCH (20:22)
[2016-10-05] MEDS ORDERED: ACETAMINOPHEN 325 MG TABLET. PO PRN (20:45)
[2016-10-05 23:00] VITALS: BP 139/70
[2016-10-05] MEDS: ONDANSETRON ODT 4 MG TAB.RAPDIS PO PRN (23:29)
[2016-10-06 03:00] VITALS: BP 126/54
[2016-10-06] MEDS: ACETAMINOPHEN 325 MG TABLET. PO PRN (03:43)
[2016-10-06 07:15] VITALS: BP 149/62
[2016-10-06] MEDS: BUDESONIDE 0.5 MG/2 ML NEBU NEB SCH ×2 (07:51→16:50)
[2016-10-06] MEDS: IPRATRPIUM/ALBUTEROL 0.5/2.5MG 3 ML NEBU. NEB SCH ×5 (07:51→20:23)
[2016-10-06] MEDS: LUBIPROSTONE 8 MCG CAPSULE PO SCH ×2 (08:00→17:00)
[2016-10-06] MEDS: CYCLOBENZAPRINE 10 MG TABLET. PO SCH ×3 (08:15→21:05)
[2016-10-06] MEDS: DICYCLOMINE HCL 10 MG CAPSULE PO SCH ×3 (08:15→21:05)
[2016-10-06] MEDS: DULOXETINE HCL 30 MG CAPSULE.DR. PO SCH (08:15)
[2016-10-06] MEDS: FAMOTIDINE 20 MG TABLET. PO SCH ×2 (08:15→21:05)
[2016-10-06] MEDS: METOPROLOL SUCC 24HR ER 25 MG TAB.ER.24H. PO SCH (08:19)
[2016-10-06] MEDS: LISINOPRIL 20 MG TABLET PO SCH (08:19)
[2016-10-06] MEDS: AMLODIPINE BESYLATE 5 MG TABLET PO SCH (08:20)
[2016-10-06] MEDS: ENOXAPARIN ** NOTE DOSE ** SYRINGE SQ SCH ×2 (08:22→21:07)
[2016-10-06] MEDS: INSULIN DETEMIR 300 UNITS/3 ML INSULN.PEN. SQ SCH ×2 (08:35→21:35)
[2016-10-06] MEDS: INSULIN ASPART 300 UNITS/3 ML INSULN.PEN SQ SCH ×3 (08:36→17:34)
[2016-10-06 11:56] VITALS: BP 122/67
[2016-10-06] MEDS: ONDANSETRON ODT 4 MG TAB.RAPDIS PO PRN (12:25)
--- NOTE | 2016-10-06 12:42 | PDOC ---
SUBJECTIVE Subjective Pt says that she is doing well today. Still very short of air when she is walking to the restroom but improved. Pt started having RLQ abdominal pain last night. States that it comes and goes and that there is nothing specific that incites the pain or makes it better or worse. She states that she has had pain like this before in the past when she had hernias. She has been having regular bowel movement. She has some nausea but no vomiting. OBJECTIVE Vital Signs Vital Signs Date Time Temp Pulse Resp B/P Pulse Ox O2 Delivery O2 Flow Rate FiO2 10/06/16 11:56 98.1 77 19 122/67 93 Room Air 98.1 10/06/16 11:50 96 Room Air 10/06/16 08:20 79 149/62 10/06/16 08:19 79 149/62 10/06/16 08:19 79 149/62 10/06/16 08:00 Room Air 10/06/16 07:51 96 Room Air 10/06/16 07:15 97.5 79 19 149/62 94 Room Air 97.5 10/06/16 03:00 97.7 72 19 126/54 94 Room Air 97.7 10/05/16 23:00 97.9 93 20 139/70 94 Room Air 97.9 10/05/16 20:15 Room Air 10/05/16 20:15 94 Room Air 10/05/16 19:00 97.7 82 19 113/50 94 Room Air 97.7 10/05/16 15:22 Room Air 10/05/16 15:05 97.5 90 20 122/48 95 Room Air 97.5 10/05/16 13:24 93 Room Air I & O Intake and Output 10/06/16 07:00 Intake Total 1200 ml Output Total 5200 ml Balance -4000 ml Intake Oral 1200 ml Output Urine Total 5200 ml PHYSICAL EXAM Physical Exam General: Alert, Oriented X3, Cooperative, obese HEENT: Atraumatic, PERRLA, EOMI, Mucous membr. moist/pink Lungs: CTAB, regular breathing rate and effort Heart: RRR Abdomen: Normal bowel sounds, Soft, exquisite tenderness RLQ along previous incision line Extremities: No clubbing, No cyanosis Skin: No rashes Neuro: Normal speech Psych/Mental Status: Mental status NL, Mood NL ASSESSMENT/PLAN Assessment/Plan Pt is a 66yo CF admitted for asthma exacerbation 1)Asthma exacerbation- improved, pt not currently receiving steroids. Lungs sound clear, still dyspneic with moving though and doesn't feel she is ready to go home. 2)Abdominal pain- new. Pt relates it to previous hernias she has had. U/S ordered 3)Hx of PE- pt's INR not therapeutic. Currently being bridged with Lovenox. INR not drawn this morning, will get tomorrow. Currently on Coumadin 10mg 4)Hx Depression- pt continued on Cymbalta 90mg qday 5)DM2- not previously well controlled, HbA1C 08/03 was 10. Pt currently receiving Levemir 44units QAM and 22units QHS. She is also on Novolog 13units QAC 6)HTN- moderately controlled on Metoprolol 25mg qday, Lisinopril 20mg and Norvasc 5mg 7)HLD- pt continued on Simvastatin 10mg QHS 8)Hypokalemia- will recheck BMP in the morning per problem list, control blood sugar and improve lung symptoms but wheezing has significantly improved. She was subtherapeutic on her INR but has no exam evidence of DVT or PE but will bridge with Lovenox and continue warfarin with pharmacy managing dose Problems: COMMENT Lab Laboratory Tests Test 10/05/16 16:33 10/05/16 21:22 10/06/16 08:12 10/06/16 11:50 Glucose (Fingerstick) 253mg/dL (70-99) 147mg/dL (70-99) 152mg/dL (70-99) 128mg/dL (70-99) LILIA WATT MD Oct 06, 2016 12:42
[2016-10-06] MEDS: HYDROCODONE/APAP 5/325MG TABLET. PO PRN ×3 (13:14→21:32)
--- NOTE | 2016-10-06 13:24 | RAD ---
Indication right lower quadrant pain. Grayscale imaging was performed. Examination was targeted to the right upper and lower quadrants. The study is limited by virtue of patient body habitus. There is increased attenuation of the ultrasound beam by the liver compatible with fatty infiltration. A focal mass lesion is not seen in the visualized liver. The right kidney appears grossly normal. The gallbladder is surgically absent. The common bile duct diameter of approximately 7 mm is within normal limits given the postcholecystectomy state. The visualized pancreas appears unremarkable. The right lower quadrant was scanned. Again imaging is somewhat limited by virtue of patient body habitus. A definite abnormality or hernia was not seen. IMPRESSION: Limited study. No definite hernia seen in the right groin. Status post cholecystectomy. Fatty infiltration of the liver
[2016-10-06 13:55] LABS: INR 1.4 (0.8-1.1); PROTHROMBIN TIME PATIENT 16.6 SEC (11.7-14.0)
[2016-10-06 15:23] VITALS: BP 112/64
[2016-10-06] MEDS: WARFARIN 10 MG TABLET. PO SCH (17:25)
[2016-10-06 19:30] VITALS: BP 130/63
[2016-10-06] MEDS: SIMVASTATIN 10 MG TABLET PO SCH (21:06)
[2016-10-06] MEDS: MONTELUKAST SODIUM 10 MG TABLET. PO SCH (21:06)
[2016-10-06] MEDS: EZETIMIBE 10 MG TABLET PO SCH (21:06)
[2016-10-06 23:30] VITALS: BP 139/70
[2016-10-07] MEDS: HYDROCODONE/APAP 5/325MG TABLET. PO PRN ×5 (01:33→21:30)
[2016-10-07] MEDS: ONDANSETRON ODT 4 MG TAB.RAPDIS PO PRN (04:04)
[2016-10-07 05:59] LABS: INR 1.6 (0.8-1.1); PROTHROMBIN TIME PATIENT 17.8 SEC (11.7-14.0)
[2016-10-07 06:01] LABS: CALCIUM 9.4 mg/dL (8.5-10.1); CREATININE 0.8 mg/dL (0.6-1.0); POTASSIUM 4.6 mmol/L (3.5-5.1)
[2016-10-07 07:42] VITALS: BP 133/62
[2016-10-07] MEDS: IPRATRPIUM/ALBUTEROL 0.5/2.5MG 3 ML NEBU. NEB SCH ×5 (07:58→22:00)
[2016-10-07] MEDS: BUDESONIDE 0.5 MG/2 ML NEBU NEB SCH ×2 (07:58→19:35)
[2016-10-07] MEDS: LUBIPROSTONE 8 MCG CAPSULE PO SCH ×2 (08:00→21:30)
[2016-10-07] MEDS: DULOXETINE HCL 30 MG CAPSULE.DR. PO SCH (08:18)
[2016-10-07] MEDS: FAMOTIDINE 20 MG TABLET. PO SCH ×2 (08:18→21:30)
[2016-10-07] MEDS: CYCLOBENZAPRINE 10 MG TABLET. PO SCH ×3 (08:19→21:31)
[2016-10-07] MEDS: AMLODIPINE BESYLATE 5 MG TABLET PO SCH (08:21)
[2016-10-07] MEDS: METOPROLOL SUCC 24HR ER 25 MG TAB.ER.24H. PO SCH (08:21)
[2016-10-07] MEDS: LISINOPRIL 20 MG TABLET PO SCH (08:21)
[2016-10-07] MEDS: DICYCLOMINE HCL 10 MG CAPSULE PO SCH ×3 (08:22→21:30)
[2016-10-07] MEDS: ENOXAPARIN ** NOTE DOSE ** SYRINGE SQ SCH ×2 (08:24→21:33)
[2016-10-07] MEDS: INSULIN DETEMIR 300 UNITS/3 ML INSULN.PEN. SQ SCH ×2 (08:29→21:36)
[2016-10-07] MEDS: INSULIN ASPART 300 UNITS/3 ML INSULN.PEN SQ SCH ×5 (08:29→21:39)
[2016-10-07 08:56] VITALS: BP 133/62
[2016-10-07 11:53] VITALS: BP 138/58
--- NOTE | 2016-10-07 12:23 | PDOC ---
SUBJECTIVE Subjective Pt states that she is still having a lot of abdominal pain. She is also feeling very short of air when she is walking. OBJECTIVE Vital Signs Vital Signs Date Time Temp Pulse Resp B/P Pulse Ox O2 Delivery O2 Flow Rate FiO2 10/07/16 11:57 98 Room Air 10/07/16 11:29 98 Room Air 10/07/16 10:52 97 Room Air 10/07/16 08:32 Room Air 10/07/16 08:21 84 133/62 10/07/16 08:21 84 133/62 10/07/16 08:21 84 133/62 10/07/16 07:59 97 Room Air 10/07/16 07:58 97 Room Air 10/07/16 07:42 97.7 84 20 133/62 93 Room Air 97.7 10/06/16 23:30 97.7 91 20 139/70 92 Room Air 97.7 10/06/16 20:23 Room Air 10/06/16 20:10 Room Air 10/06/16 19:30 98.1 88 20 130/63 93 Room Air 98.1 10/06/16 17:31 96 Room Air 10/06/16 16:50 Room Air 10/06/16 15:23 98.6 89 19 112/64 96 Room Air 98.6 10/06/16 13:14 93 Room Air I & O Intake and Output 10/07/16 07:00 Intake Total 1300 ml Output Total 6250 ml Balance -4950 ml Intake Oral 1300 ml Output Urine Total 6250 ml PHYSICAL EXAM Physical Exam General: Alert, Oriented X3, Cooperative, obese HEENT: Atraumatic, PERRLA, EOMI, Mucous membr. moist/pink Lungs: CTAB, regular breathing rate and effort Heart: RRR, no M/R/G Abdomen: Normal bowel sounds, Soft, exquisite tenderness RLQ along previous incision line Extremities: No clubbing, No cyanosis Skin: No rashes Neuro: Normal speech Psych/Mental Status: Mental status NL, Mood NL ASSESSMENT/PLAN Assessment/Plan Pt is a 66yo CF admitted for asthma exacerbation 1)Asthma exacerbation- improved, pt not currently receiving steroids. Lungs sound clear, still dyspneic with moving though and doesn't feel she is ready to go home. 2)Abdominal pain- U/S WNL. Discussed likely a muscle strain 3)Hx of PE- pt's INR not therapeutic. Currently being bridged with Lovenox. INR now 1.6. Currently on Coumadin 10mg 4)Hx Depression- pt continued on Cymbalta 90mg qday 5)DM2- not previously well controlled, HbA1C 08/03 was 10. Pt currently receiving Levemir 44units QAM and 22units QHS. She is also on Novolog 13units QAC. Will also add SSI. 6)HTN- moderately controlled on Metoprolol 25mg qday, Lisinopril 20mg and Norvasc 5mg 7)HLD- pt continued on Simvastatin 10mg QHS 8)Hypokalemia- resolved Problems: COMMENT Lab Laboratory Tests Test 10/06/16 13:15 10/06/16 17:00 10/06/16 20:31 10/07/16 05:10 Prothrombin Time 16.6SEC (11.7-14.0) 17.8SEC (11.7-14.0) Prothromb Time International Ratio 1.4 (0.8-1.1) 1.6 (0.8-1.1) Glucose (Fingerstick) 223mg/dL (70-99) 182mg/dL (70-99) Sodium Level 139mmol/L (136-145) Potassium Level 4.6mmol/L (3.5-5.1) Chloride Level 101mmol/L (98-107) Carbon Dioxide Level 29mmol/L (21-32) Anion Gap 9 (6-14) Blood Urea Nitrogen 12mg/dL (7-20) Creatinine 0.8mg/dL (0.6-1.0) Estimated GFR (Cockcroft-Gault) 72.0 Glucose Level 183mg/dL (70-99) Calcium Level 9.4mg/dL (8.5-10.1) Test 10/07/16 07:57 Glucose (Fingerstick) 174mg/dL (70-99) LILIA WATT MD Oct 07, 2016 12:22
[2016-10-07] MEDS ORDERED: DEXTROSE 50% 25 GM / 50ML DISP.SYRIN. IV PRN (12:30)
[2016-10-07 15:00] VITALS: BP 120/52
[2016-10-07] MEDS: WARFARIN 10 MG TABLET. PO SCH (15:58)
[2016-10-07 19:30] VITALS: BP 116/59
[2016-10-07] MEDS: EZETIMIBE 10 MG TABLET PO SCH (21:29)
[2016-10-07] MEDS: SIMVASTATIN 10 MG TABLET PO SCH (21:31)
[2016-10-07] MEDS: MONTELUKAST SODIUM 10 MG TABLET. PO SCH (21:31)
[2016-10-07 23:35] VITALS: BP 115/64
[2016-10-08] MEDS: ONDANSETRON ODT 4 MG TAB.RAPDIS PO PRN ×2 (00:02→12:32)
[2016-10-08] MEDS: HYDROCODONE/APAP 5/325MG TABLET. PO PRN ×2 (03:21→20:53)
[2016-10-08 03:35] VITALS: BP 117/59
[2016-10-08] MEDS: BUDESONIDE 0.5 MG/2 ML NEBU NEB SCH ×2 (06:05→20:33)
[2016-10-08] MEDS: IPRATRPIUM/ALBUTEROL 0.5/2.5MG 3 ML NEBU. NEB SCH ×5 (06:05→20:33)
[2016-10-08 07:05] VITALS: BP 126/57
[2016-10-08] MEDS: DULOXETINE HCL 30 MG CAPSULE.DR. PO SCH (08:36)
[2016-10-08] MEDS: DICYCLOMINE HCL 10 MG CAPSULE PO SCH ×3 (08:36→20:52)
[2016-10-08] MEDS: LUBIPROSTONE 8 MCG CAPSULE PO SCH ×2 (08:36→17:17)
[2016-10-08] MEDS: CYCLOBENZAPRINE 10 MG TABLET. PO SCH ×3 (08:36→20:52)
[2016-10-08] MEDS: FAMOTIDINE 20 MG TABLET. PO SCH ×2 (08:36→20:52)
[2016-10-08] MEDS: AMLODIPINE BESYLATE 5 MG TABLET PO SCH (08:36)
[2016-10-08] MEDS: LISINOPRIL 20 MG TABLET PO SCH (08:36)
[2016-10-08] MEDS: METOPROLOL SUCC 24HR ER 25 MG TAB.ER.24H. PO SCH (08:37)
[2016-10-08] MEDS: ENOXAPARIN ** NOTE DOSE ** SYRINGE SQ SCH ×2 (08:37→20:52)
[2016-10-08] MEDS: INSULIN ASPART 300 UNITS/3 ML INSULN.PEN SQ SCH ×6 (08:51→17:20)
[2016-10-08] MEDS: INSULIN DETEMIR 300 UNITS/3 ML INSULN.PEN. SQ SCH ×2 (08:52→21:00)
--- NOTE | 2016-10-08 08:59 | PDOC ---
PROGRESS NOTES Subjective Subjective She has not been out of bed as she feels lightheaded if she does, she has pain in her RLQ but imaging did not show hernia but her pain is in her old incisional scar. She ate her eggs but feels nauseated. She still has a cough with deep breath but she has not had any breathing treatments since last [place] as the are only ordered for when awake Objective Objective Vital Signs Date Time Temp Pulse Resp B/P Pulse Ox O2 Delivery O2 Flow Rate FiO2 10/08/16 07:05 97.8 80 16 126/57 91 Room Air 97.8 Intake and Output 10/08/16 07:00 Intake Total 1950 ml Output Total 7300 ml Balance -5350 ml Intake Oral 1950 ml Output Urine Total 7300 ml Physical Exam Abdomen: Other (tenderness orver RLQ incisional scar, no hernia palpable) Heart: Regular rate Extremities: No clubbing, No cyanosis General: Alert, Cooperative HEENT: Atraumatic Lungs: Other (expiratory wheezes and productive cough) MUSCULOSKELETAL: No swelling Neck: Supple Neuro: Normal speech Psych/Mental Status: Mental status NL Skin: No breakdown Assessment Assessment Problems Medical Problems: 1)Asthma exacerbation- allergic to prednisone and methylprednisolone Lungs sound clear, still dyspneic with moving though and doesn't feel she is ready to go home. Will get PT/OT to work with her as she feels lightheaded when up and repeat chest Xray and add azithromycin and change guifenescin 200 mg to mucinex DM ER 2)Abdominal pain- U/S WNL. 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 Currently being bridged with Lovenox. INR now 1.6 yesterday, todays is pending. Currently on Coumadin 10mg 4)Hx Depression- pt continued on Cymbalta 90mg qday 5)DM2- not previously well controlled, HbA1C 08/03 was 10, but more recent are improved. Pt currently receiving Levemir 44units QAM and 22units QHS. She is also on Novolog 13units QAC. Will also add SSI. 6)HTN- moderately controlled on Metoprolol 25mg qday, Lisinopril 20mg and Norvasc 5mg 7)HLD- pt continued on Simvastatin 10mg QHS 8)Hypokalemia- resolved Comment Review of Relevant I have reviewed the following items cameron (where applicable) has been applied. Labs Laboratory Tests Test 10/06/16 11:50 10/06/16 13:15 10/06/16 17:00 10/06/16 20:31 Glucose (Fingerstick) 128mg/dL (70-99) 223mg/dL (70-99) 182mg/dL (70-99) Prothrombin Time 16.6SEC (11.7-14.0) Prothromb Time International Ratio 1.4 (0.8-1.1) Test 10/07/16 05:10 10/07/16 07:57 10/07/16 10:51 10/07/16 12:34 Prothrombin Time 17.8SEC (11.7-14.0) Prothromb Time International Ratio 1.6 (0.8-1.1) Sodium Level 139mmol/L (136-145) Potassium Level 4.6mmol/L (3.5-5.1) Chloride Level 101mmol/L (98-107) Carbon Dioxide Level 29mmol/L (21-32) Anion Gap 9 (6-14) Blood Urea Nitrogen 12mg/dL (7-20) Creatinine 0.8mg/dL (0.6-1.0) Estimated GFR (Cockcroft-Gault) 72.0 Glucose Level 183mg/dL (70-99) Calcium Level 9.4mg/dL (8.5-10.1) Glucose (Fingerstick) 174mg/dL (70-99) 138mg/dL (70-99) 132mg/dL (70-99) Test 10/07/16 17:27 10/07/16 21:14 10/08/16 07:12 Glucose (Fingerstick) 109mg/dL (70-99) 220mg/dL (70-99) 192mg/dL (70-99) Laboratory Tests Test 10/07/16 10:51 10/07/16 12:34 10/07/16 17:27 10/07/16 21:14 Glucose (Fingerstick) 138mg/dL (70-99) 132mg/dL (70-99) 109mg/dL (70-99) 220mg/dL (70-99) Test 10/08/16 07:12 Glucose (Fingerstick) 192mg/dL (70-99) Medications Current Medications Albuterol/ Ipratropium 3 ml 3 ml 1X ONCE NEB Last administered on 10/04/16 15 :11; Start 10/04/16 at 14:45; Stop 10/04/16 at 14:53; Status DC Sodium Chloride (Iv Sodium Chloride 0.9% 500ml Bag) 500 ml @ 500 mls/hr 1X ONCE IV Last administered on 10/04/16 17:00; Start 10/04/16 at 14:45; Stop at 15:44; Status DC Diphenhydramine HCl (Benadryl) 25 mg 1X ONCE PO Last administered on 16:59; Start 10/04/16 at 14:45; Stop 10/04/16 at 14:53; Status DC Prednisone (Prednisone) 60 mg 1X ONCE PO Last administered on 10/04/16 16:59 ; Start 10/04/16 at 14:45; Stop 10/04/16 at 14:56; Status DC Albuterol Sulfate (Ventolin Neb Soln) 2.5 mg STK-MED ONCE .ROUTE ; Start at 15:26; Stop 10/04/16 at 15:27; Status DC Albuterol Sulfate (Ventolin Neb Soln) 10 mg 1X ONCE CONT NEB Last administered on 10/04/16 15:30; Start 10/04/16 at 15:30; Stop 10/04/16 at 15:31 ; Status DC Ondansetron HCl (Zofran) 4 mg PRN Q8HRS PRN IV NAUSEA/VOMITING Last administered on 10/05/16 09:15; Start 10/04/16 at 16:00; Stop 10/05/16 at 15:59 ; Status DC Acetaminophen (Tylenol) 650 mg PRN Q4HRS PRN PO FEVER Last administered on 10/05 06:35; Start 10/04/16 at 16:00; Stop 10/05/16 at 15:59; Status DC Potassium Chloride (Klor-Con) 40 meq 1X ONCE PO Last administered on 17:15; Start 10/04/16 at 17:15; Stop 10/04/16 at 17:16; Status DC Pneumococcal Polyvalent Vaccine (Do NOT chart on this placeholder) 1 each 1X ONCE MC ; Start 10/04/16 at 20:30; Stop 10/04/16 at 20:31; Status UNV Pneumoccal 13-Valent Conj Vacc (Prevnar 13) 0.5 ml ONCE ONCE VAX IM Last administered on 10/05/16 08:57; Start 10/05/16 at 09:00; Stop 10/05/16 at 09:01 ; Status DC Amlodipine Besylate (Norvasc) 5 mg DAILY PO Last administered on 10/07/16 08: 21; Start 10/04/16 at 21:00 Diphenhydramine HCl (Benadryl) 25 mg PRN Q4HRS PRN PO NAUSEA 2ND CHOICE; Start 10/04/16 at 20:45 Insulin Aspart (Novolog) 13 units TIDAC SQ Last administered on 10/07/16 12:40 ; Start 10/05/16 at 07:30 Lisinopril (Prinivil) 20 mg DAILY PO Last administered on 10/07/16 08:21; Start 10/04/16 at 21:00 Lubiprostone (Amitiza) 24 mcg BIDWMEALS PO Last administered on 10/07/16 21:30 ; Start 10/04/16 at 21:00 Metoprolol Succinate (Toprol Xl) 25 mg DAILY PO Last administered on 10/07/16 08:21; Start 10/04/16 at 21:00 Montelukast Sodium (Singulair) 10 mg HS PO Last administered on 10/07/16 21:31 ; Start 10/04/16 at 21:00 Warfarin Sodium (Coumadin) 10 mg DAILY16 PO Last administered on 10/07/16 15: 58; Start 10/04/16 at 21:00 Cyclobenzaprine HCl (Flexeril) 5 mg TID PO Last administered on 10/07/16 21:31 ; Start 10/04/16 at 21:00 Dicyclomine HCl (Bentyl) 20 mg TID PO Last administered on 10/07/16 21:30; Start 10/04/16 at 21:00 Duloxetine HCl (Cymbalta) 90 mg DAILY PO Last administered on 10/07/16 08:18; Start 10/05/16 at 09:00 Simvastatin (Zocor) 10 mg QHS PO Last administered on 10/07/16 21:31; Start at 21:00 Budesonide (Pulmicort) 0.5 mg RTBID NEB Last administered on 10/08/16 06:05; Start 10/04/16 at 21:00 Insulin Detemir (Levemir) 22 units QHS SQ Last administered on 10/07/16 21:36 ; Start 10/04/16 at 21:00 Insulin Detemir (Levemir) 44 units DAILY08 SQ Last administered on 10/07/16 08 :29; Start 10/05/16 at 08:00 Albuterol Sulfate (Ventolin Neb Soln) 2.5 mg PRN BID PRN NEB SHORTNESS OF BREATH Last administered on 10/05/16 13:23; Start 10/04/16 at 21:00 Meclizine HCl (Antivert) 25 mg PRN TID PRN PO DIZZINESS; Start 10/04/16 at 21: 00 Ondansetron HCl (Zofran Odt) 4 mg PRN BID PRN PO NAUSEA/VOMITING Last administered on 10/08/16 00:02; Start 10/04/16 at 20:45 Famotidine (Pepcid) 20 mg BID PO Last administered on 10/07/16 21:30; Start at 21:00 Non-Formulary Medication 18 mcg DAILY IH ; Start 10/05/16 at 09:00; Status UNV Guaifenesin (Robitussin Dm) 10 ml PRN Q6HRS PRN PO COUGH Last administered on 06:35; Start 10/04/16 at 20:45 Albuterol/ Ipratropium (Duoneb) 3 ml Q4HRS W/A NEB Last administered on 06:05; Start 10/04/16 at 22:00 EZETIMIBE (Zetia) 10 mg QHS PO Last administered on 10/07/16 21:29; Start at 21:00 Warfarin Sodium (Coumadin Per Physician) 1 each PRN DAILY PRN MC SEE COMMENTS Last administered on 2/19/17at 10:57; Start 10/04/16 at 21:00 Enoxaparin Sodium (Lovenox Per Pharmacy Treatment Dosing) 1 each PRN DAILY PRN MC SEE COMMENTS; Start 10/05/16 at 13:00 Enoxaparin Sodium (Lovenox 120mg Syringe) 110 mg Q12HR SQ Last administered on 10/07/16 21:33; Start 10/05/16 at 13:00 Acetaminophen (Tylenol) 325 mg PRN Q6HRS PRN PO MILD PAIN / TEMP; Start at 20:45 Acetaminophen (Tylenol) 650 mg PRN Q6HRS PRN PO MILD PAIN / TEMP Last administered on 10/06/16 03:43; Start 10/05/16 at 20:45 Acetaminophen/ Hydrocodone Bitart (Lortab 5/325) 1 tab PRN Q4HRS PRN PO PAIN Last administered on 10/08/16 03:21; Start 10/06/16 at 12:45 Insulin Aspart (Novolog) 0-5 UNITS TIDWMEALS SQ ; Start 10/07/16 at 12:30 Dextrose 12.5 gm PRN Q15MIN PRN IV SEE COMMENTS; Start 10/07/16 at 12:30 Active Scripts Active Meclizine Hcl 25 Mg Tablet 1 Tab PO PRN TID PRN Meclizine Hcl 25 Mg Tablet 1 Tab PO PRN TID When necessary for dizziness Zofran (Ondansetron Hcl) 4 Mg Tablet 4 Mg PO BID PRN Cyclobenzaprine Hcl 5 Mg Tablet 5 Mg PO TID Amitiza (Lubiprostone) 8 Mcg Capsule 24 Mcg PO BIDWMEALS Benadryl (Diphenhydramine Hcl) 25 Mg Capsule 25 Mg PO PRN Q4HRS PRN [Ipratropium/Albuterol Sulfate] 3 ML Nebu 3 Ml NEB RTQID [Guaifenesin/Dextromethorphan] 10 ML Syrup 10 Ml PO PRN Q4HRS PRN Reported Novolog Flexpen (Insulin Aspart) 100 Unit/1 Ml Insuln.pen 13 Unit SQ TIDAC Levemir (Insulin Detemir) 100 Unit/1 Ml Vial 22 Unit SQ HS Coumadin (Warfarin Sodium) 10 Mg Tablet 10 Mg PO DAILY Levemir (Insulin Detemir) 100 Unit/1 Ml Vial 44 Unit SQ DAILY08 Dicyclomine Hcl 20 Mg Tablet 1 Tab PO TID Amlodipine Besylate 5 Mg Tablet 1 Tab PO DAILY Metoprolol Succinate ( Xl ) (Metoprolol Succinate) 25 Mg Tab.er.24h 1 Tab PO DAILY Vytorin 10-10 Mg Tablet (Ezetimibe/Simvastatin) 1 Each Tablet 1 Each PO HS Xopenex Hfa (Levalbuterol Tartrate) 15 Gm Hfa.aer.ad 15 Gm IH PRN BID PRN Spiriva (Tiotropium [place]) 18 Mcg Cap.w.dev 18 Mcg IH DAILY Advair 250-50 Diskus (Fluticasone/Salmeterol) 1 Each Disk.w.dev 1 Each IH BID94 Cymbalta (Duloxetine Hcl) 60 Mg Capsule.dr 90 Mg PO DAILY Singulair Tablet (Montelukast Sodium) 10 Mg Tablet 10 Mg PO HS Lisinopril 40 Mg Tablet 20 Mg PO DAILY Zantac (Ranitidine Hcl) 150 Mg Tablet 150 Mg PO BID Vitals/I & O Vital Sign - Last 24 Hours 10/07/16 10/07/16 10/07/16 10/07/16 10:52 11:29 11:53 11:57 Temp 98.2 98.2 Pulse 79 Resp 20 B/P 138/58 Pulse Ox 97 98 95 98 O2 Delivery Room Air Room Air Room Air Room Air 10/07/16 10/07/16 10/07/16 10/07/16 15:00 15:17 15:57 19:30 Temp 98.2 98.1 98.2 98.1 Pulse 80 81 Resp 20 18 B/P 120/52 116/59 Pulse Ox 94 99 99 92 O2 Delivery Room Air Room Air Room Air Room Air 10/07/16 10/07/16 10/07/16 10/07/16 19:36 19:37 20:10 23:35 Temp 98.4 98.4 Pulse 82 Resp 18 B/P 115/64 Pulse Ox 96 96 92 O2 Delivery Room Air Room Air Room Air Room Air 10/08/16 10/08/16 10/08/16 03:35 06:05 07:05 Temp 98.1 97.8 98.1 97.8 Pulse 82 80 Resp 18 16 B/P 117/59 126/57 Pulse Ox 93 97 91 O2 Delivery Room Air Room Air Room Air Intake and Output 10/07/16 10/07/16 10/08/16 15:00 23:00 07:00 Intake Total 700 ml 1250 ml Output Total 5000 ml 2300 ml Balance -4300 ml -1050 ml Meagan ALVAREZ MD Oct 08, 2016 08:59
[2016-10-08] MEDS ORDERED: AZITHRMYCN 500MG IVPB FOR OMNI 250 ML IV ONE (09:00)
[2016-10-08] MEDS ORDERED: AZITHROMYCIN 500 MG in IV NORMAL SALINE 250ML 250 ML IV ONE (09:00)
[2016-10-08] MEDS: LIDOCAINE (700MG/PATCH) PATCH. TD SCH (10:10)
[2016-10-08] MEDS: GUAIFENESIN DM 600/30MG TAB.ER.12H. PO SCH ×2 (10:10→20:52)
[2016-10-08 10:45] VITALS: BP 119/57
[2016-10-08 14:44] LABS: INR 1.9 (0.8-1.1); PROTHROMBIN TIME PATIENT 20.4 SEC (11.7-14.0)
[2016-10-08 14:45] VITALS: BP 112/62
--- NOTE | 2016-10-08 15:12 | RAD ---
Chest, 2 views, 10/08/2016: History: Asthma, COPD, persistent cough Comparison is made to a study from 10/04/2016. The heart size and pulmonary vascularity are normal. No pulmonary infiltrates are seen. There is no evidence of pleural fluid. Bilateral shoulder prostheses are in place. IMPRESSION: No acute cardiopulmonary abnormality is detected.
[2016-10-08] MEDS: WARFARIN 10 MG TABLET. PO SCH (15:25)
[2016-10-08 19:15] VITALS: BP 120/47
[2016-10-08] MEDS: SIMVASTATIN 10 MG TABLET PO SCH (20:52)
[2016-10-08] MEDS: EZETIMIBE 10 MG TABLET PO SCH (20:52)
[2016-10-08] MEDS: MONTELUKAST SODIUM 10 MG TABLET. PO SCH (20:52)
[2016-10-08 23:25] VITALS: BP 131/59
[2016-10-09] VITALS (7 sets, daily range): BP systolic 120–157; BP diastolic 48–117
[2016-10-09] MEDS: HYDROCODONE/APAP 5/325MG TABLET. PO PRN ×4 (01:47→21:36)
[2016-10-09] MEDS: ONDANSETRON ODT 4 MG TAB.RAPDIS PO PRN (04:22)
[2016-10-09] MEDS: ACETAMINOPHEN 325 MG TABLET. PO PRN (04:22)
[2016-10-09] MEDS: IPRATRPIUM/ALBUTEROL 0.5/2.5MG 3 ML NEBU. NEB SCH ×5 (06:00→19:54)
[2016-10-09 07:04] LABS: HEMATOCRIT 41.4 % (36.0-47.0); HEMOGLOBIN 13.1 g/dL (12.0-15.5); RED BLOOD COUNT 4.79 x10^6/uL (3.50-5.40); RED CELL DISTRIBUTION WIDTH 15.2 % (11.5-14.5)
[2016-10-09] MEDS: INSULIN ASPART 300 UNITS/3 ML INSULN.PEN SQ SCH ×6 (08:00→17:44)
--- NOTE | 2016-10-09 08:16 | PDOC ---
PROGRESS NOTES Subjective Subjective Patient reports feeling better overall today but states that she still experiences some lightheadedness upon ambulation. Denies coughing or wheezing. Also reports some nausea today but states that it is a chronic issue for her. Objective Objective Vital Signs Date Time Temp Pulse Resp B/P Pulse Ox O2 Delivery O2 Flow Rate FiO2 10/09/16 03:30 98.2 77 18 142/71 93 Room Air 98.2 Intake and Output 10/09/16 07:00 Intake Total 2555 ml Balance 2555 ml Intake Oral 2305 ml IV Total 250 ml # Voids 9 # Bowel Movements 1 Physical Exam Abdomen: Normal bowel sounds Heart: Regular rate, Normal S1, Normal S2, No murmurs Extremities: No cyanosis, No edema, Normal pulses General: Alert, Oriented X3 HEENT: Atraumatic Lungs: Clear to auscultation Neuro: Normal speech Psych/Mental Status: Mental status NL Assessment Assessment Problems Medical Problems: (1) Asthma exacerbation Status: Acute (2) Hypokalemia Status: Acute (3) Hx of DVT/PE Status: Acute (4) Abdominal Pain Status: Acute Plan Plan of Care Medical Problems: (1) Asthma exacerbation-symptoms improved, continue current regimen, 4 more days PO Zithromax Status: Acute (2) Hypokalemia-resolved Status: Acute (3) Hx of DVT/PE-INR improved, discontinue Lovenox Status: Acute (4) Abdominal Pain-CT scan to rule out hernia or other acute pathology, if unremarkable anticipate discharge later today Status: Acute Comment Review of Relevant I have reviewed the following items cameron (where applicable) has been applied. Labs Laboratory Tests Test 10/07/16 10:51 10/07/16 12:34 10/07/16 17:27 10/07/16 21:14 Glucose (Fingerstick) 138mg/dL (70-99) 132mg/dL (70-99) 109mg/dL (70-99) 220mg/dL (70-99) Test 10/08/16 07:12 10/08/16 12:24 10/08/16 14:15 10/08/16 16:39 Glucose (Fingerstick) 192mg/dL (70-99) 80mg/dL (70-99) 97mg/dL (70-99) Prothrombin Time 20.4SEC (11.7-14.0) Prothromb Time International Ratio 1.9 (0.8-1.1) Test 10/08/16 20:54 10/09/16 06:35 Glucose (Fingerstick) 167mg/dL (70-99) White Blood Count 7.0x10^3/uL (4.0-11.0) Red Blood Count 4.79x10^6/uL (3.50-5.40) Hemoglobin 13.1g/dL (12.0-15.5) Hematocrit 41.4% (36.0-47.0) Mean Corpuscular Volume 87fL (79-100) Mean Corpuscular Hemoglobin 27pg (25-35) Mean Corpuscular Hemoglobin Concent 32g/dL (31-37) Red Cell Distribution Width 15.2% (11.5-14.5) Platelet Count 243x10^3/uL (140-400) Laboratory Tests Test 10/08/16 12:24 10/08/16 14:15 10/08/16 16:39 10/08/16 20:54 Glucose (Fingerstick) 80mg/dL (70-99) 97mg/dL (70-99) 167mg/dL (70-99) Prothrombin Time 20.4SEC (11.7-14.0) Prothromb Time International Ratio 1.9 (0.8-1.1) Test 10/09/16 06:35 White Blood Count 7.0x10^3/uL (4.0-11.0) Red Blood Count 4.79x10^6/uL (3.50-5.40) Hemoglobin 13.1g/dL (12.0-15.5) Hematocrit 41.4% (36.0-47.0) Mean Corpuscular Volume 87fL (79-100) Mean Corpuscular Hemoglobin 27pg (25-35) Mean Corpuscular Hemoglobin Concent 32g/dL (31-37) Red Cell Distribution Width 15.2% (11.5-14.5) Platelet Count 243x10^3/uL (140-400) Medications Current Medications Albuterol/ Ipratropium 3 ml 3 ml 1X ONCE NEB Last administered on 10/04/16t 15 :11; Start 10/04/16 at 14:45; Stop 10/04/16 at 14:53; Status DC Sodium Chloride (Iv Sodium Chloride 0.9% 500ml Bag) 500 ml @ 500 mls/hr 1X ONCE IV Last administered on 10/04/16 17:00; Start 10/04/16 at 14:45; Stop at 15:44; Status DC Diphenhydramine HCl (Benadryl) 25 mg 1X ONCE PO Last administered on 16:59; Start 10/04/16 at 14:45; Stop 10/04/16 at 14:53; Status DC Prednisone (Prednisone) 60 mg 1X ONCE PO Last administered on 10/04/16 16:59 ; Start 10/04/16 at 14:45; Stop 10/04/16 at 14:56; Status DC Albuterol Sulfate (Ventolin Neb Soln) 2.5 mg STK-MED ONCE .ROUTE ; Start at 15:26; Stop 10/04/16 at 15:27; Status DC Albuterol Sulfate (Ventolin Neb Soln) 10 mg 1X ONCE CONT NEB Last administered on 10/04/16 15:30; Start 10/04/16 at 15:30; Stop 10/04/16 at 15:31 ; Status DC Ondansetron HCl (Zofran) 4 mg PRN Q8HRS PRN IV NAUSEA/VOMITING Last administered on 10/05/16 09:15; Start 10/04/16 at 16:00; Stop 10/05/16 at 15:59 ; Status DC Acetaminophen (Tylenol) 650 mg PRN Q4HRS PRN PO FEVER Last administered on 10/05 06:35; Start 10/04/16 at 16:00; Stop 10/05/16 at 15:59; Status DC Potassium Chloride (Klor-Con) 40 meq 1X ONCE PO Last administered on 17:15; Start 10/04/16 at 17:15; Stop 10/04/16 at 17:16; Status DC Pneumococcal Polyvalent Vaccine (Do NOT chart on this placeholder) 1 each 1X ONCE MC ; Start 10/04/16 at 20:30; Stop 10/04/16 at 20:31; Status UNV Pneumoccal 13-Valent Conj Vacc (Prevnar 13) 0.5 ml ONCE ONCE VAX IM Last administered on 10/05/16 08:57; Start 10/05/16 at 09:00; Stop 10/05/16 at 09:01 ; Status DC Amlodipine Besylate (Norvasc) 5 mg DAILY PO Last administered on 10/08/16 08: 36; Start 10/04/16 at 21:00 Diphenhydramine HCl (Benadryl) 25 mg PRN Q4HRS PRN PO NAUSEA 2ND CHOICE; Start 10/04/16 at 20:45 Insulin Aspart (Novolog) 13 units TIDAC SQ Last administered on 10/08/16 17:20 ; Start 10/05/16 at 07:30 Lisinopril (Prinivil) 20 mg DAILY PO Last administered on 10/08/16 08:36; Start 10/04/16 at 21:00 Lubiprostone (Amitiza) 24 mcg BIDWMEALS PO Last administered on 10/08/16 17:17 ; Start 10/04/16 at 21:00 Metoprolol Succinate (Toprol Xl) 25 mg DAILY PO Last administered on 10/08/16 08:37; Start 10/04/16 at 21:00 Montelukast Sodium (Singulair) 10 mg HS PO Last administered on 10/08/16 20:52 ; Start 10/04/16 at 21:00 Warfarin Sodium (Coumadin) 10 mg DAILY16 PO Last administered on 10/08/16 15: 25; Start 10/04/16 at 21:00 Cyclobenzaprine HCl (Flexeril) 5 mg TID PO Last administered on 10/08/16 20:52 ; Start 10/04/16 at 21:00 Dicyclomine HCl (Bentyl) 20 mg TID PO Last administered on 10/08/16 20:52; Start 10/04/16 at 21:00 Duloxetine HCl (Cymbalta) 90 mg DAILY PO Last administered on 10/08/16 08:36; Start 10/05/16 at 09:00 Simvastatin (Zocor) 10 mg QHS PO Last administered on 10/08/16 20:52; Start at 21:00 Budesonide (Pulmicort) 0.5 mg RTBID NEB Last administered on 10/08/16 20:33; Start 10/04/16 at 21:00 Insulin Detemir (Levemir) 22 units QHS SQ Last administered on 10/08/16 21:00 ; Start 10/04/16 at 21:00 Insulin Detemir (Levemir) 44 units DAILY08 SQ Last administered on 10/08/16 08 :52; Start 10/05/16 at 08:00 Albuterol Sulfate (Ventolin Neb Soln) 2.5 mg PRN BID PRN NEB SHORTNESS OF BREATH Last administered on 10/05/16 13:23; Start 10/04/16 at 21:00 Meclizine HCl (Antivert) 25 mg PRN TID PRN PO DIZZINESS; Start 10/04/16 at 21: 00 Ondansetron HCl (Zofran Odt) 4 mg PRN BID PRN PO NAUSEA/VOMITING Last administered on 10/09/16 04:22; Start 10/04/16 at 20:45 Famotidine (Pepcid) 20 mg BID PO Last administered on 10/08/16 20:52; Start at 21:00 Non-Formulary Medication 18 mcg DAILY IH ; Start 10/05/16 at 09:00; Status UNV Guaifenesin (Robitussin Dm) 10 ml PRN Q6HRS PRN PO COUGH Last administered on 06:35; Start 10/04/16 at 20:45; Stop 10/08/16 at 08:51; Status DC Albuterol/ Ipratropium (Duoneb) 3 ml Q4HRS W/A NEB Last administered on 20:33; Start 10/04/16 at 22:00 EZETIMIBE (Zetia) 10 mg QHS PO Last administered on 10/08/16 20:52; Start at 21:00 Warfarin Sodium (Coumadin Per Physician) 1 each PRN DAILY PRN MC SEE COMMENTS Last administered on 10/08/16 15:18; Start 10/04/16 at 21:00 Enoxaparin Sodium (Lovenox Per Pharmacy Treatment Dosing) 1 each PRN DAILY PRN MC SEE COMMENTS; Start 10/05/16 at 13:00 Enoxaparin Sodium (Lovenox 120mg Syringe) 110 mg Q12HR SQ Last administered on 10/08/16 20:52; Start 10/05/16 at 13:00 Acetaminophen (Tylenol) 325 mg PRN Q6HRS PRN PO MILD PAIN / TEMP; Start at 20:45 Acetaminophen (Tylenol) 650 mg PRN Q6HRS PRN PO MILD PAIN / TEMP Last administered on 10/09/16 04:22; Start 10/05/16 at 20:45 Acetaminophen/ Hydrocodone Bitart (Lortab 5/325) 1 tab PRN Q4HRS PRN PO PAIN Last administered on 10/09/16 01:47; Start 10/06/16 at 12:45 Insulin Aspart (Novolog) 0-5 UNITS TIDWMEALS SQ Last administered on 10/08/16 08:51; Start 10/07/16 at 12:30 Dextrose 12.5 gm PRN Q15MIN PRN IV SEE COMMENTS; Start 10/07/16 at 12:30 Lidocaine (Lidoderm) 1 patch DAILY TD Last administered on 10/08/16 10:10; Start 10/08/16 at 09:00 Guaifenesin 1 tab 1 tab BID PO Last administered on 10/08/16 20:52; Start at 09:00 Azithromycin 250 ml @ 250 mls/hr 1X ONCE IV ; Start 10/08/16 at 09:00; Stop at 09:59; Status UNV Azithromycin/ Sodium Chloride (Zithromax/Iv Sodium Chloride 0.9% 250ml) 250 ml @ 250 mls/hr ONCE ONCE IV Last administered on 10/08/16 10:11; Start at 09:00; Stop 10/08/16 at 09:59; Status DC Active Scripts Active Meclizine Hcl 25 Mg Tablet 1 Tab PO PRN TID PRN Meclizine Hcl 25 Mg Tablet 1 Tab PO PRN TID When necessary for dizziness Zofran (Ondansetron Hcl) 4 Mg Tablet 4 Mg PO BID PRN Cyclobenzaprine Hcl 5 Mg Tablet 5 Mg PO TID Amitiza (Lubiprostone) 8 Mcg Capsule 24 Mcg PO BIDWMEALS Benadryl (Diphenhydramine Hcl) 25 Mg Capsule 25 Mg PO PRN Q4HRS PRN [Ipratropium/Albuterol Sulfate] 3 ML Nebu 3 Ml NEB RTQID [Guaifenesin/Dextromethorphan] 10 ML Syrup 10 Ml PO PRN Q4HRS PRN Reported Novolog Flexpen (Insulin Aspart) 100 Unit/1 Ml Insuln.pen 13 Unit SQ TIDAC Levemir (Insulin Detemir) 100 Unit/1 Ml Vial 22 Unit SQ HS Coumadin (Warfarin Sodium) 10 Mg Tablet 10 Mg PO DAILY Levemir (Insulin Detemir) 100 Unit/1 Ml Vial 44 Unit SQ DAILY08 Dicyclomine Hcl 20 Mg Tablet 1 Tab PO TID Amlodipine Besylate 5 Mg Tablet 1 Tab PO DAILY Metoprolol Succinate ( Xl ) (Metoprolol Succinate) 25 Mg Tab.er.24h 1 Tab PO DAILY Vytorin 10-10 Mg Tablet (Ezetimibe/Simvastatin) 1 Each Tablet 1 Each PO HS Xopenex Hfa (Levalbuterol Tartrate) 15 Gm Hfa.aer.ad 15 Gm IH PRN BID PRN Spiriva (Tiotropium [place]) 18 Mcg Cap.w.dev 18 Mcg IH DAILY Advair 250-50 Diskus (Fluticasone/Salmeterol) 1 Each Disk.w.dev 1 Each IH BID94 Cymbalta (Duloxetine Hcl) 60 Mg Capsule.dr 90 Mg PO DAILY Singulair Tablet (Montelukast Sodium) 10 Mg Tablet 10 Mg PO HS Lisinopril 40 Mg Tablet 20 Mg PO DAILY Zantac (Ranitidine Hcl) 150 Mg Tablet 150 Mg PO BID Vitals/I & O Vital Sign - Last 24 Hours 10/08/16 10/08/16 10/08/16 10/08/16 08:36 08:36 08:37 10:45 Temp 98.4 98.4 Pulse 80 80 80 83 Resp 18 B/P 126/57 126/57 126/57 119/57 Pulse Ox 91 O2 Delivery Room Air 10/08/16 10/08/16 10/08/16 10/08/16 11:18 14:45 15:33 19:15 Temp 97.9 97.7 97.9 97.7 Pulse 84 87 Resp 18 20 B/P 112/62 120/47 Pulse Ox 91 93 92 O2 Delivery Room Air Room Air Room Air Room Air 10/08/16 10/08/16 10/08/16 10/09/16 20:00 20:33 23:25 03:30 Temp 98.1 98.2 98.1 98.2 Pulse 85 77 Resp 20 18 B/P 131/59 142/71 Pulse Ox 96 93 93 O2 Delivery Room Air Room Air Room Air Room Air Intake and Output 10/08/16 10/08/16 10/09/16 15:00 23:00 07:00 Intake Total 555 ml 1100 ml 900 ml Balance 555 ml 1100 ml 900 ml Meagan ALVAREZ MD Oct 09, 2016 08:16
[2016-10-09] MEDS: BUDESONIDE 0.5 MG/2 ML NEBU NEB SCH ×2 (09:08→19:54)
[2016-10-09] MEDS ORDERED: IOHEXOL 240 MG/ML 50ML VIAL. PO ONE (09:30)
[2016-10-09] MEDS ORDERED: CONTRAST GIVEN MC PRN (09:45)
[2016-10-09] MEDS: LUBIPROSTONE 8 MCG CAPSULE PO SCH ×2 (09:55→17:39)
[2016-10-09] MEDS: DICYCLOMINE HCL 10 MG CAPSULE PO SCH ×3 (09:56→20:48)
[2016-10-09] MEDS: GUAIFENESIN DM 600/30MG TAB.ER.12H. PO SCH ×2 (09:56→20:48)
[2016-10-09] MEDS: METOPROLOL SUCC 24HR ER 25 MG TAB.ER.24H. PO SCH (09:56)
[2016-10-09] MEDS: AMLODIPINE BESYLATE 5 MG TABLET PO SCH (09:56)
[2016-10-09] MEDS: DULOXETINE HCL 30 MG CAPSULE.DR. PO SCH (09:56)
[2016-10-09] MEDS: FAMOTIDINE 20 MG TABLET. PO SCH ×2 (09:56→20:48)
[2016-10-09] MEDS: CYCLOBENZAPRINE 10 MG TABLET. PO SCH ×3 (09:57→20:48)
[2016-10-09] MEDS: LISINOPRIL 20 MG TABLET PO SCH (09:57)
[2016-10-09] MEDS: LIDOCAINE (700MG/PATCH) PATCH. TD SCH (09:57)
[2016-10-09 09:58] LABS: INR 1.9 (0.8-1.1); PROTHROMBIN TIME PATIENT 20.5 SEC (11.7-14.0)
[2016-10-09] MEDS: AZITHROMYCIN 250 MG TABLET PO SCH (10:00)
[2016-10-09] MEDS: PANTOPRAZOLE 40 MG TABLET. PO SCH (10:00)
[2016-10-09] MEDS: INSULIN DETEMIR 300 UNITS/3 ML INSULN.PEN. SQ SCH ×2 (10:07→20:59)
--- NOTE | 2016-10-09 11:57 | RAD ---
EXAM: CT abdomen/pelvis without contrast. HISTORY: Right lower quadrant pain. Concern for hernia. TECHNIQUE: Computed tomography of the abdomen and pelvis was performed without intravenous contrast. COMPARISON: 04/17/2016. FINDINGS: Lung windows through the visualized portions of the bases reveal mild atelectasis. There are atherosclerotic calcifications of the coronary arteries. There is a small hiatal hernia. Bone windows reveal no suspicious lesions. The gallbladder is surgically absent. There is a calcified granuloma in the spleen. The adrenal glands, pancreas, liver and kidneys are unremarkable. There is a phlebolith immediately adjacent to the right mid ureter. No clear ureteral calculi are seen. There are no pathologically enlarged lymph nodes. The uterus is surgically absent. There is no obstruction. There is a complex moderately sized hernia along the inferolateral aspect of the right anterior abdominal wall. Surgical clip is seen along the inferior aspect of this defect. Nonobstructed small bowel loops prolapsing into some of the defects. In the midline, there is a broad region of diastasis rectus without a clear discrete hernia. Multiple nonobstructive small bowel loops are included in this defect. Small foci of gas and stranding within the anterior abdominal subcutaneous fat likely reflects subcutaneous injections. IMPRESSION: 1. A broad region of diastasis rectus contains multiple nonobstructed small bowel loops. There is no clear fascial defect to indicate a complete hernia at this site. 2. There is a moderately sized spigelian hernia in the right lower quadrant that contains fat and a nonobstructed loop of the distal ileum. 3. Small hiatal hernia. *One or more of the following individualized dose reduction techniques were utilized for this examination: 1. Automated exposure control. 2. Adjustment of the mA and/or kV according to patient size. 3. Use of iterative reconstruction technique.
--- NOTE | 2016-10-09 13:41 | PDOC2 ---
CONSULT Date of Consult Date of Consult DATE: 10/09/16 TIME: 13:36 Reason for Consult Reason for Consult: rlq pain Referring Physician Referring Physician: Dr Castro Identification/Chief Complaint Chief Complaint SOA Source Source: Chart review, Patient History of Present Illness Reason for Visit: Admitted with asthma/copd exacerbation, that has improved. She has had chronic lower abdominal pain that has been worsening for 3 months. Chronic nausea. Normal bowel function. 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, consult for surgery Past Medical History Cardiovascular: CAD, HTN Pulmonary: Asthma, COPD, Pulmonary embolus, Other GI: GERD Endocrine: Diabetes, Other Past Surgical History Past Surgical History: Appendectomy, Breast Biopsy, Cholecystectomy, Cataract Removal, Hernia Repair, Tonsillectomy, Hysterectomy, Other (multiple abdominal surgeries) Family History Family History: Coronary Artery Disease, Diabetes Social History ALCOHOL: none Drugs: None Lives: Alone Current Problem List Problem List Problems Medical Problems: (1) Asthma exacerbation Status: Acute (2) Hypokalemia Status: Acute Current Medications Current Medications Current Medications Albuterol/ Ipratropium 3 ml 3 ml 1X ONCE NEB Last administered on 10/04/16 15 :11; Start 10/04/16 at 14:45; Stop 10/04/16 at 14:53; Status DC Sodium Chloride (Iv Sodium Chloride 0.9% 500ml Bag) 500 ml @ 500 mls/hr 1X ONCE IV Last administered on 10/04/16 17:00; Start 10/04/16 at 14:45; Stop at 15:44; Status DC Diphenhydramine HCl (Benadryl) 25 mg 1X ONCE PO Last administered on 16:59; Start 10/04/16 at 14:45; Stop 10/04/16 at 14:53; Status DC Prednisone (Prednisone) 60 mg 1X ONCE PO Last administered on 10/04/16 16:59 ; Start 10/04/16 at 14:45; Stop 10/04/16 at 14:56; Status DC Albuterol Sulfate (Ventolin Neb Soln) 2.5 mg STK-MED ONCE .ROUTE ; Start at 15:26; Stop 10/04/16 at 15:27; Status DC Albuterol Sulfate (Ventolin Neb Soln) 10 mg 1X ONCE CONT NEB Last administered on 10/04/16 15:30; Start 10/04/16 at 15:30; Stop 10/04/16 at 15:31 ; Status DC Ondansetron HCl (Zofran) 4 mg PRN Q8HRS PRN IV NAUSEA/VOMITING Last administered on 10/05/16 09:15; Start 10/04/16 at 16:00; Stop 10/05/16 at 15:59 ; Status DC Acetaminophen (Tylenol) 650 mg PRN Q4HRS PRN PO FEVER Last administered on 10/05 06:35; Start 10/04/16 at 16:00; Stop 10/05/16 at 15:59; Status DC Potassium Chloride (Klor-Con) 40 meq 1X ONCE PO Last administered on 17:15; Start 10/04/16 at 17:15; Stop 10/04/16 at 17:16; Status DC Pneumococcal Polyvalent Vaccine (Do NOT chart on this placeholder) 1 each 1X ONCE MC ; Start 10/04/16 at 20:30; Stop 10/04/16 at 20:31; Status UNV Pneumoccal 13-Valent Conj Vacc (Prevnar 13) 0.5 ml ONCE ONCE VAX IM Last administered on 10/05/16 08:57; Start 10/05/16 at 09:00; Stop 10/05/16 at 09:01 ; Status DC Amlodipine Besylate (Norvasc) 5 mg DAILY PO Last administered on 10/09/16 09: 56; Start 10/04/16 at 21:00 Diphenhydramine HCl (Benadryl) 25 mg PRN Q4HRS PRN PO NAUSEA 2ND CHOICE; Start 10/04/16 at 20:45 Insulin Aspart (Novolog) 13 units TIDAC SQ Last administered on 10/09/16 10:06 ; Start 10/05/16 at 07:30 Lisinopril (Prinivil) 20 mg DAILY PO Last administered on 10/09/16 09:57; Start 10/04/16 at 21:00 Lubiprostone (Amitiza) 24 mcg BIDWMEALS PO Last administered on 10/09/16 09:55 ; Start 10/04/16 at 21:00 Metoprolol Succinate (Toprol Xl) 25 mg DAILY PO Last administered on 10/09/16 09:56; Start 10/04/16 at 21:00 Montelukast Sodium (Singulair) 10 mg HS PO Last administered on 10/08/16 20:52 ; Start 10/04/16 at 21:00 Warfarin Sodium (Coumadin) 10 mg DAILY16 PO Last administered on 10/08/16 15: 25; Start 10/04/16 at 21:00 Cyclobenzaprine HCl (Flexeril) 5 mg TID PO Last administered on 10/09/16 09:57 ; Start 10/04/16 at 21:00 Dicyclomine HCl (Bentyl) 20 mg TID PO Last administered on 10/09/16 09:56; Start 10/04/16 at 21:00 Duloxetine HCl (Cymbalta) 90 mg DAILY PO Last administered on 10/09/16 09:56; Start 10/05/16 at 09:00 Simvastatin (Zocor) 10 mg QHS PO Last administered on 10/08/16 20:52; Start at 21:00 Budesonide (Pulmicort) 0.5 mg RTBID NEB Last administered on 10/09/16 09:08; Start 10/04/16 at 21:00 Insulin Detemir (Levemir) 22 units QHS SQ Last administered on 10/08/16 21:00 ; Start 10/04/16 at 21:00 Insulin Detemir (Levemir) 44 units DAILY08 SQ Last administered on 10/09/16 10 :07; Start 10/05/16 at 08:00 Albuterol Sulfate (Ventolin Neb Soln) 2.5 mg PRN BID PRN NEB SHORTNESS OF BREATH Last administered on 10/05/16 13:23; Start 10/04/16 at 21:00 Meclizine HCl (Antivert) 25 mg PRN TID PRN PO DIZZINESS; Start 10/04/16 at 21: 00 Ondansetron HCl (Zofran Odt) 4 mg PRN BID PRN PO NAUSEA/VOMITING Last administered on 10/09/16 04:22; Start 10/04/16 at 20:45 Famotidine (Pepcid) 20 mg BID PO Last administered on 10/09/16 09:56; Start at 21:00 Non-Formulary Medication 18 mcg DAILY IH ; Start 10/05/16 at 09:00; Status UNV Guaifenesin (Robitussin Dm) 10 ml PRN Q6HRS PRN PO COUGH Last administered on 06:35; Start 10/04/16 at 20:45; Stop 10/08/16 at 08:51; Status DC Albuterol/ Ipratropium (Duoneb) 3 ml Q4HRS W/A NEB Last administered on 11:43; Start 10/04/16 at 22:00 EZETIMIBE (Zetia) 10 mg QHS PO Last administered on 10/08/16 20:52; Start at 21:00 Warfarin Sodium (Coumadin Per Physician) 1 each PRN DAILY PRN MC SEE COMMENTS Last administered on 10/08/16 15:18; Start 10/04/16 at 21:00 Enoxaparin Sodium (Lovenox Per Pharmacy Treatment Dosing) 1 each PRN DAILY PRN MC SEE COMMENTS; Start 10/05/16 at 13:00; Stop 10/09/16 at 08:37; Status DC Enoxaparin Sodium (Lovenox 120mg Syringe) 110 mg Q12HR SQ Last administered on 10/08/16 20:52; Start 10/05/16 at 13:00; Stop 10/09/16 at 08:37; Status DC Acetaminophen (Tylenol) 325 mg PRN Q6HRS PRN PO MILD PAIN / TEMP; Start at 20:45 Acetaminophen (Tylenol) 650 mg PRN Q6HRS PRN PO MILD PAIN / TEMP Last administered on 10/09/16 04:22; Start 10/05/16 at 20:45 Acetaminophen/ Hydrocodone Bitart (Lortab 5/325) 1 tab PRN Q4HRS PRN PO PAIN Last administered on 10/09/16 12:16; Start 10/06/16 at 12:45 Insulin Aspart (Novolog) 0-5 UNITS TIDWMEALS SQ Last administered on 10/08/16 08:51; Start 10/07/16 at 12:30 Dextrose 12.5 gm PRN Q15MIN PRN IV SEE COMMENTS; Start 10/07/16 at 12:30 Lidocaine (Lidoderm) 1 patch DAILY TD Last administered on 10/09/16 09:57; Start 10/08/16 at 09:00 Guaifenesin 1 tab 1 tab BID PO Last administered on 10/09/16 09:56; Start at 09:00 Azithromycin 250 ml @ 250 mls/hr 1X ONCE IV ; Start 10/08/16 at 09:00; Stop at 09:59; Status UNV Azithromycin/ Sodium Chloride (Zithromax/Iv Sodium Chloride 0.9% 250ml) 250 ml @ 250 mls/hr ONCE ONCE IV Last administered on 10/08/16 10:11; Start at 09:00; Stop 10/08/16 at 09:59; Status DC Pantoprazole Sodium (Protonix) 40 mg DAILYAC PO Last administered on 10/09/16 10:00; Start 10/09/16 at 09:00 Azithromycin (Zithromax) 250 mg DAILY PO Last administered on 10/09/16 10:00; Start 10/09/16 at 09:00 Iohexol (Omnipaque 240 Mg/ml) 30 ml 1X ONCE PO Last administered on 10/09/16 09:30; Start 10/09/16 at 09:30; Stop 10/09/16 at 09:31; Status DC Info (Do NOT chart on this entry -- for MONITORING) 1 each PRN DAILY PRN MC SEE COMMENTS; Start 10/09/16 at 09:45; Stop 10/11/16 at 09:44 Active Scripts Active Meclizine Hcl 25 Mg Tablet 1 Tab PO PRN TID PRN Meclizine Hcl 25 Mg Tablet 1 Tab PO PRN TID When necessary for dizziness Zofran (Ondansetron Hcl) 4 Mg Tablet 4 Mg PO BID PRN Cyclobenzaprine Hcl 5 Mg Tablet 5 Mg PO TID Amitiza (Lubiprostone) 8 Mcg Capsule 24 Mcg PO BIDWMEALS Benadryl (Diphenhydramine Hcl) 25 Mg Capsule 25 Mg PO PRN Q4HRS PRN [Ipratropium/Albuterol Sulfate] 3 ML Nebu 3 Ml NEB RTQID [Guaifenesin/Dextromethorphan] 10 ML Syrup 10 Ml PO PRN Q4HRS PRN Reported Novolog Flexpen (Insulin Aspart) 100 Unit/1 Ml Insuln.pen 13 Unit SQ TIDAC Levemir (Insulin Detemir) 100 Unit/1 Ml Vial 22 Unit SQ HS Coumadin (Warfarin Sodium) 10 Mg Tablet 10 Mg PO DAILY Levemir (Insulin Detemir) 100 Unit/1 Ml Vial 44 Unit SQ DAILY08 Dicyclomine Hcl 20 Mg Tablet 1 Tab PO TID Amlodipine Besylate 5 Mg Tablet 1 Tab PO DAILY Metoprolol Succinate ( Xl ) (Metoprolol Succinate) 25 Mg Tab.er.24h 1 Tab PO DAILY Vytorin 10-10 Mg Tablet (Ezetimibe/Simvastatin) 1 Each Tablet 1 Each PO HS Xopenex Hfa (Levalbuterol Tartrate) 15 Gm Hfa.aer.ad 15 Gm IH PRN BID PRN Spiriva (Tiotropium Goodman) 18 Mcg Cap.w.dev 18 Mcg IH DAILY Advair 250-50 Diskus (Fluticasone/Salmeterol) 1 Each Disk.w.dev 1 Each IH BID94 Cymbalta (Duloxetine Hcl) 60 Mg Capsule.dr 90 Mg PO DAILY Singulair Tablet (Montelukast Sodium) 10 Mg Tablet 10 Mg PO HS Lisinopril 40 Mg Tablet 20 Mg PO DAILY Zantac (Ranitidine Hcl) 150 Mg Tablet 150 Mg PO BID Allergies Allergies: Coded Allergies: Penicillins (Verified Allergy, Intermediate, itching, dry mouth, tongue swells, 12/16/15) Sulfa (Sulfonamide Antibiotics) (Verified Allergy, Intermediate, ITCHING DRY MOUTH, hives/swelling, 12/16/15) fentanyl (Verified Allergy, Intermediate, 12/16/15) hydromorphone HCl (Verified Allergy, Intermediate, MORPHINE OK, 12/16/15) methylprednisolone (Unverified Allergy, Intermediate, RED MAN SYNDROME, 03/22/16) prednisone (Unverified Allergy, Intermediate, RED MED SYNDROME, 03/22/16) oxycodone HCl (Verified Adverse Reaction, Intermediate, "i FEEL LIKE I HAVE WORMS IN ME", 12/16/15) 06/28 TOLERATING HYDROCODONE/APAP ROS General: No: Chills, Other (fevers) PSYCHOLOGICAL ROS: YES: Anxiety, No: Depression Eyes: Yes Double vision, No Blurry vision HEENT: No: Heacaches, Sore Throat Hematological and Lymphatic: No: Bleeding Problems, Blood Clots Respiratory: YES: Cough, Shortness of breath Cardiovascular: No Chest Pain, No Palpitations Gastrointestinal: Yes Other (see hpi) Genitourinary: No Dysuria, No Hematuria Musculoskeletal: No Joint Pain, No Muscle Pain Neurological: No Confusion, No Numbness/Tingling Skin: No Pruritus, No Rash Physical Exam General: Alert, Oriented X3, Cooperative, No acute distress HEENT: PERRLA, Mucous membr. moist/pink Lungs: Clear to auscultation, Normal air movement Heart: Regular rate, Normal S1, Normal S2, No murmurs Abdomen: Normal bowel sounds, Soft, Other (tender lower abdomen, abdominal scars noted ) Extremities: No clubbing, No cyanosis Skin: No rashes, No breakdown Neuro: Normal speech, Sensation intact Psych/Mental Status: Mental status NL, Mood NL MUSCULOSKELETAL: No deformity, No swelling Vitals VITALS Vital Signs Date Time Temp Pulse Resp B/P Pulse Ox O2 Delivery O2 Flow Rate FiO2 10/09/16 12:16 18 98 Room Air 10/09/16 11:00 98.0 79 157/66 98.0 Labs Labs Laboratory Tests Test 10/07/16 17:27 10/07/16 21:14 10/08/16 07:12 10/08/16 12:24 Glucose (Fingerstick) 109mg/dL (70-99) 220mg/dL (70-99) 192mg/dL (70-99) 80mg/dL (70-99) Test 10/08/16 14:15 10/08/16 16:39 10/08/16 20:54 10/09/16 06:35 Prothrombin Time 20.4SEC (11.7-14.0) Prothromb Time International Ratio 1.9 (0.8-1.1) Glucose (Fingerstick) 97mg/dL (70-99) 167mg/dL (70-99) White Blood Count 7.0x10^3/uL (4.0-11.0) Red Blood Count 4.79x10^6/uL (3.50-5.40) Hemoglobin 13.1g/dL (12.0-15.5) Hematocrit 41.4% (36.0-47.0) Mean Corpuscular Volume 87fL (79-100) Mean Corpuscular Hemoglobin 27pg (25-35) Mean Corpuscular Hemoglobin Concent 32g/dL (31-37) Red Cell Distribution Width 15.2% (11.5-14.5) Platelet Count 243x10^3/uL (140-400) Test 10/09/16 07:28 10/09/16 09:35 10/09/16 11:08 Glucose (Fingerstick) 140mg/dL (70-99) 219mg/dL (70-99) Prothrombin Time 20.5SEC (11.7-14.0) Prothromb Time International Ratio 1.9 (0.8-1.1) Laboratory Tests Test 10/08/16 14:15 10/08/16 16:39 10/08/16 20:54 10/09/16 06:35 Prothrombin Time 20.4SEC (11.7-14.0) Prothromb Time International Ratio 1.9 (0.8-1.1) Glucose (Fingerstick) 97mg/dL (70-99) 167mg/dL (70-99) White Blood Count 7.0x10^3/uL (4.0-11.0) Red Blood Count 4.79x10^6/uL (3.50-5.40) Hemoglobin 13.1g/dL (12.0-15.5) Hematocrit 41.4% (36.0-47.0) Mean Corpuscular Volume 87fL (79-100) Mean Corpuscular Hemoglobin 27pg (25-35) Mean Corpuscular Hemoglobin Concent 32g/dL (31-37) Red Cell Distribution Width 15.2% (11.5-14.5) Platelet Count 243x10^3/uL (140-400) Test 10/09/16 07:28 10/09/16 09:35 10/09/16 11:08 Glucose (Fingerstick) 140mg/dL (70-99) 219mg/dL (70-99) Prothrombin Time 20.5SEC (11.7-14.0) Prothromb Time International Ratio 1.9 (0.8-1.1) Images Images 1. A broad region of diastasis rectus contains multiple nonobstructed small bowel loops. There is no clear fascial defect to indicate a complete hernia at this site. 2. There is a moderately sized spigelian hernia in the right lower quadrant that contains fat and a nonobstructed loop of the distal ileum. 3. Small hiatal hernia. Assessment/Plan Assessment/Plan asthma, copd, DM, obesity rlq pain, chronic no obstruction on CT, can eat tonight will have Dr An review CT tomorrow VICENTA ANTHONY APRN Oct 09, 2016 13:40
[2016-10-09] MEDS: WARFARIN 10 MG TABLET. PO SCH (17:40)
[2016-10-09] MEDS: SIMVASTATIN 10 MG TABLET PO SCH (20:48)
[2016-10-09] MEDS: MONTELUKAST SODIUM 10 MG TABLET. PO SCH (20:48)
[2016-10-09] MEDS: EZETIMIBE 10 MG TABLET PO SCH (21:00)
[2016-10-09] MEDS: DIPHENHYDRAMINE HCL 25 MG CAPSULE PO PRN (21:36)
[2016-10-10] MEDS: DIPHENHYDRAMINE HCL 25 MG CAPSULE PO PRN (01:40)
[2016-10-10] MEDS: HYDROCODONE/APAP 5/325MG TABLET. PO PRN ×3 (01:40→15:34)
[2016-10-10 03:00] VITALS: BP 128/48
[2016-10-10 04:17] LABS: PROTHROMBIN TIME PATIENT 21.6 SEC (11.7-14.0)
[2016-10-10 07:00] VITALS: BP 135/51
[2016-10-10] MEDS: BUDESONIDE 0.5 MG/2 ML NEBU NEB SCH ×2 (07:19→20:00)
[2016-10-10] MEDS: IPRATRPIUM/ALBUTEROL 0.5/2.5MG 3 ML NEBU. NEB SCH ×5 (07:19→22:00)
[2016-10-10] MEDS: LUBIPROSTONE 8 MCG CAPSULE PO SCH ×2 (08:00→17:00)
[2016-10-10] MEDS: INSULIN DETEMIR 300 UNITS/3 ML INSULN.PEN. SQ SCH ×2 (08:00→22:06)
[2016-10-10] MEDS: GUAIFENESIN DM 600/30MG TAB.ER.12H. PO SCH ×2 (09:00→22:00)
[2016-10-10] MEDS: LIDOCAINE (700MG/PATCH) PATCH. TD SCH (09:57)
[2016-10-10] MEDS: FAMOTIDINE 20 MG TABLET. PO SCH ×2 (09:57→22:00)
[2016-10-10] MEDS: DULOXETINE HCL 30 MG CAPSULE.DR. PO SCH (09:57)
[2016-10-10] MEDS: PANTOPRAZOLE 40 MG TABLET. PO SCH (09:57)
[2016-10-10] MEDS: METOPROLOL SUCC 24HR ER 25 MG TAB.ER.24H. PO SCH (09:58)
[2016-10-10] MEDS: CYCLOBENZAPRINE 10 MG TABLET. PO SCH ×3 (09:58→22:00)
[2016-10-10] MEDS: DICYCLOMINE HCL 10 MG CAPSULE PO SCH ×3 (09:59→22:00)
[2016-10-10] MEDS: LISINOPRIL 20 MG TABLET PO SCH (09:59)
[2016-10-10] MEDS: AMLODIPINE BESYLATE 5 MG TABLET PO SCH (09:59)
[2016-10-10] MEDS: AZITHROMYCIN 250 MG TABLET PO SCH (09:59)
[2016-10-10] MEDS: INSULIN ASPART 300 UNITS/3 ML INSULN.PEN SQ SCH ×6 (10:11→18:37)
--- NOTE | 2016-10-10 10:46 | PDOC ---
SURGICAL PROGRESS NOTE Subjective Pt with c/o RLQ pain, chronic nausea, but would like to eat Vital Signs Vital Signs Date Time Temp Pulse Resp B/P Pulse Ox O2 Delivery O2 Flow Rate FiO2 10/10/16 10:00 96 Room Air 10/10/16 09:59 80 135/51 10/10/16 07:00 97.5 18 97.5 I&O Intake and Output 10/10/16 07:00 Intake Total 1575 ml Balance 1575 ml Intake Oral 1575 ml # Voids 4 General: Alert, Oriented X3, Cooperative, mild distress Abdomen: Soft, Other (some RLQ TTP, difficult to palpate hernia secondary to body habitus) Labs Laboratory Tests Test 10/08/16 12:24 10/08/16 14:15 10/08/16 16:39 10/08/16 20:54 Glucose (Fingerstick) 80mg/dL (70-99) 97mg/dL (70-99) 167mg/dL (70-99) Prothrombin Time 20.4SEC (11.7-14.0) Prothromb Time International Ratio 1.9 (0.8-1.1) Test 10/09/16 06:35 10/09/16 07:28 10/09/16 09:35 10/09/16 11:08 White Blood Count 7.0x10^3/uL (4.0-11.0) Red Blood Count 4.79x10^6/uL (3.50-5.40) Hemoglobin 13.1g/dL (12.0-15.5) Hematocrit 41.4% (36.0-47.0) Mean Corpuscular Volume 87fL (79-100) Mean Corpuscular Hemoglobin 27pg (25-35) Mean Corpuscular Hemoglobin Concent 32g/dL (31-37) Red Cell Distribution Width 15.2% (11.5-14.5) Platelet Count 243x10^3/uL (140-400) Glucose (Fingerstick) 140mg/dL (70-99) 219mg/dL (70-99) Prothrombin Time 20.5SEC (11.7-14.0) Prothromb Time International Ratio 1.9 (0.8-1.1) Test 10/09/16 17:32 10/09/16 20:50 10/10/16 03:45 10/10/16 08:01 Glucose (Fingerstick) 212mg/dL (70-99) 139mg/dL (70-99) 240mg/dL (70-99) Prothrombin Time 21.6SEC (11.7-14.0) Prothromb Time International Ratio 2.0 (0.8-1.1) Laboratory Tests Test 10/09/16 11:08 10/09/16 17:32 10/09/16 20:50 10/10/16 03:45 Glucose (Fingerstick) 219mg/dL (70-99) 212mg/dL (70-99) 139mg/dL (70-99) Prothrombin Time 21.6SEC (11.7-14.0) Prothromb Time International Ratio 2.0 (0.8-1.1) Test 10/10/16 08:01 Glucose (Fingerstick) 240mg/dL (70-99) Problem List Problems Medical Problems: (1) Asthma exacerbation Status: Acute (2) Hypokalemia Status: Acute Assessment/Plan nonobstructing hernia pt has a hostile abd would like to try pain service consult first prior to surgical intervention Problems: MARIANNA LEMA MD Oct 10, 2016 10:46
[2016-10-10 11:00] VITALS: BP 116/61
[2016-10-10 15:00] VITALS: BP 111/50
[2016-10-10] MEDS: WARFARIN 10 MG TABLET. PO SCH (15:33)
--- NOTE | 2016-10-10 16:31 | PDOC ---
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 An consulted but not recommending surgery due to her "hostile abd", pain clinic consulted Objective Objective Vital Signs Date Time Temp Pulse Resp B/P Pulse Ox O2 Delivery O2 Flow Rate FiO2 10/10/16 15:34 96 Room Air 10/10/16 15:00 97.6 79 18 111/50 97.6 Intake and Output 10/10/16 07:00 Intake Total 1575 ml Balance 1575 ml Intake Oral 1575 ml # Voids 4 Physical Exam Abdomen: Soft Heart: Regular rate Extremities: No clubbing, No cyanosis General: Alert, Cooperative HEENT: Atraumatic Lungs: Clear to auscultation, Other (wheezing has essentially resolved, not currently coughing) MUSCULOSKELETAL: No swelling Neck: Supple Neuro: Normal speech Psych/Mental Status: Mental status NL Skin: No breakdown Assessment Assessment Problems Medical Problems: 1) Asthma exacerbation - essentially resolved 2)Abdominal pain- U/S WNL, but CT abd confirmed presence of spigelian hernia and loop od distal ileum in it . Surgery not willing to operate, pain management goal vs transfer to tertiary center 3)Hx of PE- pt's INR now therapeutic on Coumadin 10mg 4)Hx Depression- pt continued on Cymbalta 90mg qday 5)DM2- not previously well controlled, HbA1C 08/03 was 10, but more recent are improved. Pt currently receiving Levemir 44units QAM and 22units QHS. She is also on Novolog 13units QAC. and SSI. 6)HTN- moderately controlled on Metoprolol 25mg qday, Lisinopril 20mg and Norvasc 5mg 7)HLD- pt continued on Simvastatin 10mg QHS 8)Hypokalemia- resolved Status: Acute Comment Review of Relevant I have reviewed the following items cameron (where applicable) has been applied. Labs Laboratory Tests Test 10/08/16 16:39 10/08/16 20:54 10/09/16 06:35 10/09/16 07:28 Glucose (Fingerstick) 97mg/dL (70-99) 167mg/dL (70-99) 140mg/dL (70-99) White Blood Count 7.0x10^3/uL (4.0-11.0) Red Blood Count 4.79x10^6/uL (3.50-5.40) Hemoglobin 13.1g/dL (12.0-15.5) Hematocrit 41.4% (36.0-47.0) Mean Corpuscular Volume 87fL (79-100) Mean Corpuscular Hemoglobin 27pg (25-35) Mean Corpuscular Hemoglobin Concent 32g/dL (31-37) Red Cell Distribution Width 15.2% (11.5-14.5) Platelet Count 243x10^3/uL (140-400) Test 10/09/16 09:35 10/09/16 11:08 10/09/16 17:32 10/09/16 20:50 Prothrombin Time 20.5SEC (11.7-14.0) Prothromb Time International Ratio 1.9 (0.8-1.1) Glucose (Fingerstick) 219mg/dL (70-99) 212mg/dL (70-99) 139mg/dL (70-99) Test 10/10/16 03:45 10/10/16 08:01 10/10/16 11:38 Prothrombin Time 21.6SEC (11.7-14.0) Prothromb Time International Ratio 2.0 (0.8-1.1) Glucose (Fingerstick) 240mg/dL (70-99) 189mg/dL (70-99) Laboratory Tests Test 10/09/16 17:32 10/09/16 20:50 10/10/16 03:45 10/10/16 08:01 Glucose (Fingerstick) 212mg/dL (70-99) 139mg/dL (70-99) 240mg/dL (70-99) Prothrombin Time 21.6SEC (11.7-14.0) Prothromb Time International Ratio 2.0 (0.8-1.1) Test 10/10/16 11:38 Glucose (Fingerstick) 189mg/dL (70-99) Medications Current Medications Albuterol/ Ipratropium 3 ml 3 ml 1X ONCE NEB Last administered on 10/04/16t 15 :11; Start 10/04/16 at 14:45; Stop 10/04/16 at 14:53; Status DC Sodium Chloride (Iv Sodium Chloride 0.9% 500ml Bag) 500 ml @ 500 mls/hr 1X ONCE IV Last administered on 10/04/16 17:00; Start 10/04/16 at 14:45; Stop at 15:44; Status DC Diphenhydramine HCl (Benadryl) 25 mg 1X ONCE PO Last administered on 16:59; Start 10/04/16 at 14:45; Stop 10/04/16 at 14:53; Status DC Prednisone (Prednisone) 60 mg 1X ONCE PO Last administered on 10/04/16 16:59 ; Start 10/04/16 at 14:45; Stop 10/04/16 at 14:56; Status DC Albuterol Sulfate (Ventolin Neb Soln) 2.5 mg STK-MED ONCE .ROUTE ; Start at 15:26; Stop 10/04/16 at 15:27; Status DC Albuterol Sulfate (Ventolin Neb Soln) 10 mg 1X ONCE CONT NEB Last administered on 10/04/16 15:30; Start 10/04/16 at 15:30; Stop 10/04/16 at 15:31 ; Status DC Ondansetron HCl (Zofran) 4 mg PRN Q8HRS PRN IV NAUSEA/VOMITING Last administered on 10/05/16 09:15; Start 10/04/16 at 16:00; Stop 10/05/16 at 15:59 ; Status DC Acetaminophen (Tylenol) 650 mg PRN Q4HRS PRN PO FEVER Last administered on 10/05 06:35; Start 10/04/16 at 16:00; Stop 10/05/16 at 15:59; Status DC Potassium Chloride (Klor-Con) 40 meq 1X ONCE PO Last administered on 17:15; Start 10/04/16 at 17:15; Stop 10/04/16 at 17:16; Status DC Pneumococcal Polyvalent Vaccine (Do NOT chart on this placeholder) 1 each 1X ONCE MC ; Start 10/04/16 at 20:30; Stop 10/04/16 at 20:31; Status UNV Pneumoccal 13-Valent Conj Vacc (Prevnar 13) 0.5 ml ONCE ONCE VAX IM Last administered on 10/05/16 08:57; Start 10/05/16 at 09:00; Stop 10/05/16 at 09:01 ; Status DC Amlodipine Besylate (Norvasc) 5 mg DAILY PO Last administered on 10/10/16 09: 59; Start 10/04/16 at 21:00 Diphenhydramine HCl (Benadryl) 25 mg PRN Q4HRS PRN PO NAUSEA 2ND CHOICE Last administered on 10/10/16 01:40; Start 10/04/16 at 20:45 Insulin Aspart (Novolog) 13 units TIDAC SQ Last administered on 10/10/16 11:49 ; Start 10/05/16 at 07:30 Lisinopril (Prinivil) 20 mg DAILY PO Last administered on 10/10/16 09:59; Start 10/04/16 at 21:00 Lubiprostone (Amitiza) 24 mcg BIDWMEALS PO Last administered on 10/09/16 17:39 ; Start 10/04/16 at 21:00 Metoprolol Succinate (Toprol Xl) 25 mg DAILY PO Last administered on 10/10/16 09:58; Start 10/04/16 at 21:00 Montelukast Sodium (Singulair) 10 mg HS PO Last administered on 10/09/16 20:48 ; Start 10/04/16 at 21:00 Warfarin Sodium (Coumadin) 10 mg DAILY16 PO Last administered on 10/10/16 15: 33; Start 10/04/16 at 21:00 Cyclobenzaprine HCl (Flexeril) 5 mg TID PO Last administered on 10/10/16 15:34 ; Start 10/04/16 at 21:00 Dicyclomine HCl (Bentyl) 20 mg TID PO Last administered on 10/10/16 15:33; Start 10/04/16 at 21:00 Duloxetine HCl (Cymbalta) 90 mg DAILY PO Last administered on 10/10/16 09:57; Start 10/05/16 at 09:00 Simvastatin (Zocor) 10 mg QHS PO Last administered on 10/09/16 20:48; Start at 21:00 Budesonide (Pulmicort) 0.5 mg RTBID NEB Last administered on 10/10/16 07:19; Start 10/04/16 at 21:00 Insulin Detemir (Levemir) 22 units QHS SQ Last administered on 10/09/16 20:59 ; Start 10/04/16 at 21:00 Insulin Detemir (Levemir) 44 units DAILY08 SQ Last administered on 10/09/16 10 :07; Start 10/05/16 at 08:00 Albuterol Sulfate (Ventolin Neb Soln) 2.5 mg PRN BID PRN NEB SHORTNESS OF BREATH Last administered on 10/05/16 13:23; Start 10/04/16 at 21:00 Meclizine HCl (Antivert) 25 mg PRN TID PRN PO DIZZINESS; Start 10/04/16 at 21: 00 Ondansetron HCl (Zofran Odt) 4 mg PRN BID PRN PO NAUSEA/VOMITING Last administered on 10/09/16 04:22; Start 10/04/16 at 20:45 Famotidine (Pepcid) 20 mg BID PO Last administered on 10/10/16 09:57; Start at 21:00 Non-Formulary Medication 18 mcg DAILY IH ; Start 10/05/16 at 09:00; Status UNV Guaifenesin (Robitussin Dm) 10 ml PRN Q6HRS PRN PO COUGH Last administered on 06:35; Start 10/04/16 at 20:45; Stop 10/08/16 at 08:51; Status DC Albuterol/ Ipratropium (Duoneb) 3 ml Q4HRS W/A NEB Last administered on 15:13; Start 10/04/16 at 22:00 EZETIMIBE (Zetia) 10 mg QHS PO Last administered on 10/09/16 21:00; Start at 21:00 Warfarin Sodium (Coumadin Per Physician) 1 each PRN DAILY PRN MC SEE COMMENTS Last administered on 10/10/16 10:55; Start 10/04/16 at 21:00 Enoxaparin Sodium (Lovenox Per Pharmacy Treatment Dosing) 1 each PRN DAILY PRN MC SEE COMMENTS; Start 10/05/16 at 13:00; Stop 10/09/16 at 08:37; Status DC Enoxaparin Sodium (Lovenox 120mg Syringe) 110 mg Q12HR SQ Last administered on 10/08/16 20:52; Start 10/05/16 at 13:00; Stop 10/09/16 at 08:37; Status DC Acetaminophen (Tylenol) 325 mg PRN Q6HRS PRN PO MILD PAIN / TEMP; Start at 20:45 Acetaminophen (Tylenol) 650 mg PRN Q6HRS PRN PO MILD PAIN / TEMP Last administered on 10/09/16 04:22; Start 10/05/16 at 20:45 Acetaminophen/ Hydrocodone Bitart (Lortab 5/325) 1 tab PRN Q4HRS PRN PO PAIN Last administered on 10/10/16 15:34; Start 10/06/16 at 12:45 Insulin Aspart (Novolog) 0-5 UNITS TIDWMEALS SQ Last administered on 10/10/16 11:50; Start 10/07/16 at 12:30 Dextrose 12.5 gm PRN Q15MIN PRN IV SEE COMMENTS; Start 10/07/16 at 12:30 Lidocaine (Lidoderm) 1 patch DAILY TD Last administered on 10/10/16 09:57; Start 10/08/16 at 09:00 Guaifenesin 1 tab 1 tab BID PO Last administered on 10/09/16 20:48; Start at 09:00 Azithromycin 250 ml @ 250 mls/hr 1X ONCE IV ; Start 10/08/16 at 09:00; Stop at 09:59; Status UNV Azithromycin/ Sodium Chloride (Zithromax/Iv Sodium Chloride 0.9% 250ml) 250 ml @ 250 mls/hr ONCE ONCE IV Last administered on 10/08/16 10:11; Start at 09:00; Stop 10/08/16 at 09:59; Status DC Pantoprazole Sodium (Protonix) 40 mg DAILYAC PO Last administered on 10/10/16 09:57; Start 10/09/16 at 09:00 Azithromycin (Zithromax) 250 mg DAILY PO Last administered on 10/10/16 09:59; Start 10/09/16 at 09:00 Iohexol (Omnipaque 240 Mg/ml) 30 ml 1X ONCE PO Last administered on 10/09/16t 09:30; Start 10/09/16 at 09:30; Stop 10/09/16 at 09:31; Status DC Info (Do NOT chart on this entry -- for MONITORING) 1 each PRN DAILY PRN MC SEE COMMENTS; Start 10/09/16 at 09:45; Stop 10/11/16 at 09:44 Active Scripts Active Meclizine Hcl 25 Mg Tablet 1 Tab PO PRN TID PRN Meclizine Hcl 25 Mg Tablet 1 Tab PO PRN TID When necessary for dizziness Zofran (Ondansetron Hcl) 4 Mg Tablet 4 Mg PO BID PRN Cyclobenzaprine Hcl 5 Mg Tablet 5 Mg PO TID Amitiza (Lubiprostone) 8 Mcg Capsule 24 Mcg PO BIDWMEALS Benadryl (Diphenhydramine Hcl) 25 Mg Capsule 25 Mg PO PRN Q4HRS PRN [Ipratropium/Albuterol Sulfate] 3 ML Nebu 3 Ml NEB RTQID [Guaifenesin/Dextromethorphan] 10 ML Syrup 10 Ml PO PRN Q4HRS PRN Reported Novolog Flexpen (Insulin Aspart) 100 Unit/1 Ml Insuln.pen 13 Unit SQ TIDAC Levemir (Insulin Detemir) 100 Unit/1 Ml Vial 22 Unit SQ HS Coumadin (Warfarin Sodium) 10 Mg Tablet 10 Mg PO DAILY Levemir (Insulin Detemir) 100 Unit/1 Ml Vial 44 Unit SQ DAILY08 Dicyclomine Hcl 20 Mg Tablet 1 Tab PO TID Amlodipine Besylate 5 Mg Tablet 1 Tab PO DAILY Metoprolol Succinate ( Xl ) (Metoprolol Succinate) 25 Mg Tab.er.24h 1 Tab PO DAILY Vytorin 10-10 Mg Tablet (Ezetimibe/Simvastatin) 1 Each Tablet 1 Each PO HS Xopenex Hfa (Levalbuterol Tartrate) 15 Gm Hfa.aer.ad 15 Gm IH PRN BID PRN Spiriva (Tiotropium [place]) 18 Mcg Cap.w.dev 18 Mcg IH DAILY Advair 250-50 Diskus (Fluticasone/Salmeterol) 1 Each Disk.w.dev 1 Each IH BID94 Cymbalta (Duloxetine Hcl) 60 Mg Capsule.dr 90 Mg PO DAILY Singulair Tablet (Montelukast Sodium) 10 Mg Tablet 10 Mg PO HS Lisinopril 40 Mg Tablet 20 Mg PO DAILY Zantac (Ranitidine Hcl) 150 Mg Tablet 150 Mg PO BID Vitals/I & O Vital Sign - Last 24 Hours 10/09/16 10/09/16 10/09/16 10/09/16 17:39 19:00 19:53 20:00 Temp 97.7 97.5 97.7 97.5 Pulse 129 80 Resp 18 18 18 B/P 145/117 124/53 Pulse Ox 98 93 92 98 O2 Delivery Room Air Room Air Room Air Room Air 10/09/16 10/09/16 10/10/16 10/10/16 21:36 23:00 01:40 02:40 Temp 96.8 96.8 Pulse 77 Resp 18 18 18 18 B/P 120/48 Pulse Ox 92 95 92 O2 Delivery Room Air Room Air Room Air 10/10/16 10/10/16 10/10/16 10/10/16 03:00 07:00 07:20 08:00 Temp 96.8 97.5 96.8 97.5 Pulse 74 80 Resp 18 18 B/P 128/48 135/51 Pulse Ox 95 91 96 O2 Delivery Room Air Room Air Room Air Room Air 10/10/16 10/10/16 10/10/16 10/10/16 09:58 09:59 09:59 10:00 Pulse 80 80 80 B/P 135/51 135/51 135/51 Pulse Ox 96 O2 Delivery Room Air 10/10/16 10/10/16 10/10/16 10/10/16 11:00 11:42 15:00 15:15 Temp 97.6 97.6 97.6 97.6 Pulse 82 79 Resp 18 18 B/P 116/61 111/50 Pulse Ox 95 96 92 O2 Delivery Room Air Room Air Room Air Room Air 10/10/16 15:34 Pulse Ox 96 O2 Delivery Room Air Intake and Output 10/09/16 10/09/16 10/10/16 15:00 23:00 07:00 Intake Total 675 ml 900 ml Balance 675 ml 900 ml Meagan ALVAREZ MD Oct 10, 2016 16:31
[2016-10-10 19:00] VITALS: BP 114/60
[2016-10-10] MEDS ORDERED: HYDROCODONE/APAP 10/325 TABLET. PO PRN (19:00)
[2016-10-10] MEDS: EZETIMIBE 10 MG TABLET PO SCH (22:00)
[2016-10-10] MEDS: MONTELUKAST SODIUM 10 MG TABLET. PO SCH (22:00)
[2016-10-10] MEDS: SIMVASTATIN 10 MG TABLET PO SCH (22:00)
[2016-10-10] MEDS: HYDROCODONE/APAP 10/325 TABLET. PO PRN (22:01)
[2016-10-10 23:00] VITALS: BP 153/54
[2016-10-11] MEDS: HYDROCODONE/APAP 10/325 TABLET. PO PRN ×2 (02:47→09:28)
[2016-10-11 03:00] VITALS: BP 110/51
[2016-10-11 07:00] VITALS: BP 103/59
[2016-10-11] MEDS: INSULIN ASPART 300 UNITS/3 ML INSULN.PEN SQ SCH ×4 (07:30→12:37)
[2016-10-11] MEDS: IPRATRPIUM/ALBUTEROL 0.5/2.5MG 3 ML NEBU. NEB SCH ×3 (07:50→14:00)
[2016-10-11] MEDS: BUDESONIDE 0.5 MG/2 ML NEBU NEB SCH (07:50)
--- NOTE | 2016-10-11 07:59 | PDOC ---
SUBJECTIVE Subjective lower abdominal pain OBJECTIVE Objective Pt. C/O abd pain across lower abdomen, RLQ most painful Vital Signs Vital Signs Date Time Temp Pulse Resp B/P Pulse Ox O2 Delivery O2 Flow Rate FiO2 10/11/16 03:00 97.5 97 18 110/51 97 97.5 10/10/16 23:00 97.7 16 20 153/54 98 Room Air 97.7 10/10/16 20:02 95 Room Air 10/10/16 20:00 Room Air 10/10/16 19:00 98.4 78 18 114/60 98 98.4 10/10/16 16:45 96 Room Air 10/10/16 15:34 96 Room Air 10/10/16 15:15 Room Air 10/10/16 15:00 97.6 79 18 111/50 92 Room Air 97.6 10/10/16 11:00 97.6 82 18 116/61 95 Room Air 97.6 10/10/16 10:00 96 Room Air 10/10/16 09:59 80 135/51 10/10/16 09:59 80 135/51 10/10/16 09:58 80 135/51 10/10/16 08:00 Room Air I & O Intake and Output 10/11/16 07:00 Intake Total 1100 ml Balance 1100 ml Intake Oral 1100 ml # Voids 4 PHYSICAL EXAM Physical Exam A&O, abd: tender RLQ and LLQ with mod palpation. Pt. describes "deep pain" with palp. RLQ. Well healed surg scars without superficial tenderness in scar/skin itself. ASSESSMENT/PLAN Assessment/Plan Abdominal pain with GI eval as noted. REC: no findings of neuroma or abd wall pain that might be treated with nerve block/infiltration. Consider bowel rest with temporary increase of IV analgesics, such as fentanyl, hydromorphone, but balance potential opioid induced constipation with analgesia. Problems: COMMENT Lab Laboratory Tests Test 10/10/16 08:01 10/10/16 11:38 10/10/16 16:40 10/10/16 21:59 Glucose (Fingerstick) 240mg/dL (70-99) 189mg/dL (70-99) 175mg/dL (70-99) 169mg/dL (70-99) MARIA LIAO MD Oct 11, 2016 07:59
[2016-10-11] MEDS: INSULIN DETEMIR 300 UNITS/3 ML INSULN.PEN. SQ SCH (08:00)
[2016-10-11] MEDS: AMLODIPINE BESYLATE 5 MG TABLET PO SCH (09:00)
[2016-10-11] MEDS: LISINOPRIL 20 MG TABLET PO SCH (09:00)
[2016-10-11] MEDS: METOPROLOL SUCC 24HR ER 25 MG TAB.ER.24H. PO SCH (09:00)
[2016-10-11] MEDS: AZITHROMYCIN 250 MG TABLET PO SCH (09:28)
[2016-10-11] MEDS: DULOXETINE HCL 30 MG CAPSULE.DR. PO SCH (09:28)
[2016-10-11] MEDS: CYCLOBENZAPRINE 10 MG TABLET. PO SCH (09:29)
[2016-10-11] MEDS: PANTOPRAZOLE 40 MG TABLET. PO SCH (09:29)
[2016-10-11] MEDS: FAMOTIDINE 20 MG TABLET. PO SCH (09:29)
[2016-10-11] MEDS: DICYCLOMINE HCL 10 MG CAPSULE PO SCH (09:29)
[2016-10-11] MEDS: GUAIFENESIN DM 600/30MG TAB.ER.12H. PO SCH (09:29)
[2016-10-11] MEDS: LUBIPROSTONE 8 MCG CAPSULE PO SCH (09:30)
[2016-10-11] MEDS: LIDOCAINE (700MG/PATCH) PATCH. TD SCH (09:32)
[2016-10-11 11:00] VITALS: BP 110/50
--- NOTE | 2016-10-11 11:47 | PDOC ---
VICENTA ANTHONY Brooke TALK SHOW HOST 10/11/16 1147: SURGICAL PROGRESS NOTE Subjective pain about the same waiting for lunch Vital Signs Vital Signs Date Time Temp Pulse Resp B/P Pulse Ox O2 Delivery O2 Flow Rate FiO2 10/11/16 11:12 98 Room Air 10/11/16 10:28 16 10/11/16 09:00 76 110/50 10/11/16 07:00 97.5 97.5 I&O Intake and Output 10/11/16 07:00 Intake Total 1100 ml Balance 1100 ml Intake Oral 1100 ml # Voids 4 General: Alert, Oriented X3, Cooperative, No acute distress Abdomen: Soft Extremities: Other (tender lower abdomen ) Labs Laboratory Tests Test 10/09/16 17:32 10/09/16 20:50 10/10/16 03:45 10/10/16 08:01 Glucose (Fingerstick) 212mg/dL (70-99) 139mg/dL (70-99) 240mg/dL (70-99) Prothrombin Time 21.6SEC (11.7-14.0) Prothromb Time International Ratio 2.0 (0.8-1.1) Test 10/10/16 11:38 10/10/16 16:40 10/10/16 21:59 Glucose (Fingerstick) 189mg/dL (70-99) 175mg/dL (70-99) 169mg/dL (70-99) Laboratory Tests Test 10/10/16 16:40 10/10/16 21:59 Glucose (Fingerstick) 175mg/dL (70-99) 169mg/dL (70-99) Problem List Problems Medical Problems: (1) Asthma exacerbation Status: Acute (2) Hypokalemia Status: Acute Assessment/Plan no surgical plans pain control Problems: MARIANNA LEMA MD 10/11/16 1744: SURGICAL PROGRESS NOTE Assessment/Plan Pt seen and examined. Agree with Ms. Anthony's note Pt with persistent pain TTP RLQ cont pain control pt poor surgical candidate Problems: RAJKENNEDYVICENTA L TALK SHOW HOST Oct 11, 2016 11:47 MARIANNA LEMA MD Oct 11, 2016 17:44
[2016-10-11] MEDS ORDERED: PANT40TA5 PO (13:08)
[2016-10-11] MEDS ORDERED: HYDR-2672 PO (13:08)
--- NOTE | 2016-10-11 13:20 | PDOC ---
Provider Note Provider Note discharge dictated #[id number] Meagan ALVAREZ MD Oct 11, 2016 13:20
--- NOTE | 2016-10-11 23:57 | DS ---
DATE OF DISCHARGE: 10/11/2016 ADMISSION DIAGNOSIS: Acute asthma exacerbation. DISCHARGE DIAGNOSES: Acute asthma exacerbation and abdominal pain secondary to spigelian hernia. HISTORY AND HOSPITAL COURSE: This is a 66-year-old white female who was in the Emergency Room the weekend prior to admission with cold symptoms that worsened over the week and led to an acute asthma exacerbation. She required multiple nebulizer treatments and steroids in the Emergency Room and was still tight and wheezing and subsequently admitted. She became hyperglycemic from the steroids, which were converted to budesonide nebulizer. She gradually improved with usual pulmonary toilet from her exacerbation. Her blood sugars were brought under control with extra insulin. She developed some right lower quadrant abdominal pain during her stay. Ultrasound evaluation was unrevealing, but CT imaging showed a spigelian hernia with distal ileum trapped within the hernia. Surgery was consulted, but due to her previous multiple abdominal surgeries it is felt she had hostile abdomen and was not willing to operate. The pain clinic was consulted for suggestions on pain control, but did not feel any type of nerve block would be helpful. She is noted to have multiple pain medication allergies. She is able to eat and her bowels are not showing obstructive symptoms. Her pain is fairly well controlled with Lortab. Her respiratory symptoms have essentially resolved and she has nearly completed a course of azithromycin. PHYSICAL EXAMINATION: GENERAL: She is alert and oriented. HEENT: Unremarkable. LUNGS: Without wheezes. HEART: Regular rate and rhythm. ABDOMEN: There is some right lower quadrant discomfort where her known hernia is. EXTREMITIES: There is no clubbing, cyanosis or peripheral edema. LABORATORY STUDIES: She is now therapeutic on warfarin. She was subtherapeutic when she came in with a history of DVT and PE. There is no evidence of pulmonary embolism affecting her respiratory state. Her CBC is unremarkable. Her chemistries showed blood sugars today ranged from 169-186. MRSA nasal screen was negative. Serology was negative for flu A or B. Cardiac enzymes are unremarkable. IMAGING STUDIES: Chest x-ray was clear. Ultrasound of her abdomen was unrevealing, but limited CT abdomen and pelvis showed broad region of the rectus diastasis that contain multiple nonobstructive small bowel loops without obvious fascial defect, but it did show moderately sized spigelian hernia in the right lower quadrant that contain fat and nonobstructive distal ileum loop. She is also noted to have a small hiatal hernia. She did have some indigestion while here. Her ranitidine was changed to pantoprazole. DISCHARGE MEDICATIONS: She will be discharged home on hydrocodone APAP 10/325 mg q. 4 hours p.r.n. pain ____, pantoprazole 40 mg daily. She will continue her amlodipine 5 mg daily, cyclobenzaprine 5 mg t.i.d., dicyclomine 20 mg t.i.d., diphenhydramine 25 mg p.r.n. itching or nausea, duloxetine 90 mg daily, Vytorin 10/10 mg at bedtime, Advair 250/50 mcg one puff b.i.d., NovoLog FlexPen 13 units t.i.d. with meals, Levemir 44 units q. morning and 22 units each evening, Xopenex HFA 15 grams 1 or 2 puffs b.i.d. p.r.n. shortness of breath, lisinopril 20 mg daily, Amitiza 24 mcg daily, meclizine 25 mg t.i.d., metoprolol XL 25 mg daily, Singulair 10 mg at bedtime, Zofran 4 mg b.i.d. p.r.n. nausea, vomiting; Spiriva 1 inhalation daily, warfarin 10 mg daily, Robitussin-DM p.r.n. cough q.i.d. and DuoNeb nebulized q.i.d. DIET: Will be diabetic. ACTIVITY: As tolerated. FOLLOWUP: She will follow up for severe abdominal pain. She will follow up in the office within a week and she will continue her weekly home INRs with dosage adjustments as needed. She was bridged with Lovenox while she was subtherapeutic on her INR during her initial stay. She was noted to have some subcutaneous abdominal wall nodules with some area consistent with her Lovenox injections sites. W Bianca ALVAREZ MD DR: BIENVENIDO/alyce JOB#: [id number] / [id number]
== END 2016-10-11 16:22 | disposition home or self-care (01) | DRG 191 ==
LOC: ER 13:46 → ED HOLD 15:35 → 6 SOUTH 19:54
PROVIDERS: ADMIT Family Medicine; ATTEND Family Medicine
DX: J44.1 Chronic obstructive pulmonary disease with (acute) exacerbation (principal); J45.901 Unspecified asthma with (acute) exacerbation; K43.9 Ventral hernia without obstruction or gangrene; E87.6 Hypokalemia; E11.65 Type 2 diabetes mellitus with hyperglycemia; E66.9 Obesity, unspecified; E78.00 Pure hypercholesterolemia, unspecified; E78.5 Hyperlipidemia, unspecified; I10 Essential (primary) hypertension; I25.10 Atherosclerotic heart disease of native coronary artery without angina pectoris; F32.9 Major depressive disorder, single episode, unspecified; Z60.2 Problems related to living alone; G43.909 Migraine, unspecified, not intractable, without status migrainosus; K21.9 Gastro-esophageal reflux disease without esophagitis; Z79.899 Other long term (current) drug therapy; Z82.49 Family history of ischemic heart disease and other diseases of the circulatory system; Z83.3 Family history of diabetes mellitus; Z86.711 Personal history of pulmonary embolism; Z86.718 Personal history of other venous thrombosis and embolism; Z88.8 Allergy status to other drugs, medicaments and biological substances; Z90.49 Acquired absence of other specified parts of digestive tract; Z88.5 Allergy status to narcotic agent; Z88.0 Allergy status to penicillin; Z88.2 Allergy status to sulfonamides; Z90.710 Acquired absence of both cervix and uterus
CPT/HCPCS: 36415; 71010; 71020; 74176; 76705; 80048; 82947; 83880; 84484; 85027; 85610; 85730; 87641; 87804; 90670; 93005; 94250; 94640; 94644; 94760; J0456; J1650; J1815; J2405; J7040; J7050; J7512; J7620; J8597; Q0144; Q0162; Q0163; Q9966; 99285-25; J7030

== ENCOUNTER 2016-11-08 22:12 | Inpatient (IN) | payer OTHER ==
[~2016-11-08] VITALS: Ht 165.1 cm; Wt 106.6 kg
[~2016-11-08 22:12] MED LIST changes: +HYDR-2672 PO; +INSU100I17 SQ; +PANT40TA5 PO
[2016-11-08] MEDS ORDERED: IV NORMAL SALINE 500ML BAG 500 ML IV ONE (23:15)
[2016-11-09 00:09] LABS: BASO % 0 % (0-3); EOS % 2 % (0-3); HEMATOCRIT 40.2 % (36.0-47.0); HEMOGLOBIN 13.3 g/dL (12.0-15.5); LYMPH # 3.7 x10^3/uL (1.0-4.8); LYMPH % 38 % (24-48); MEAN CORPUSCULAR HEMOGLOBIN 28 pg (25-35); MEAN CORPUSCULAR HGB CONC 33 g/dL (31-37); MEAN CORPUSCULAR VOLUME 85 fL (79-100); MONO % 6 % (0-9); NEUT % 53 % (31-73); PLATELET COUNT 285 x10^3/uL (140-400); RED BLOOD COUNT 4.76 x10^6/uL (3.50-5.40); RED CELL DISTRIBUTION WIDTH 14.8 % (11.5-14.5); WHITE BLOOD COUNT 9.8 x10^3/uL (4.0-11.0)
[2016-11-09 00:17] LABS: INR 1.1 (0.8-1.1); PROTHROMBIN TIME PATIENT 13.7 SEC (11.7-14.0)
[2016-11-09 00:20] LABS: CALCIUM 9.2 mg/dL (8.5-10.1); CREATININE 0.9 mg/dL (0.6-1.0); GFR 62.8; POTASSIUM 3.9 mmol/L (3.5-5.1)
[2016-11-09] MEDS ORDERED: ONDANSETRON PF 4 MG/2 ML VIAL. IV ONE (00:30)
[2016-11-09] MEDS ORDERED: IV NORMAL SALINE 500ML BAG 500 ML IV ONE (01:00)
[2016-11-09 01:28] LABS: BILIRUBIN,URINE NEGATIVE (NEG); GLUCOSE,URINE 500 mg/dL (NEG); NITRITE,URINE NEGATIVE (NEG); PROTEIN,URINE NEGATIVE (NEG-TRACE); UROBILINOGEN,URINE 0.2 mg/dL (0.2 mg/dL)
[2016-11-09 01:33] LABS: BACTERIA,URINE 0 /HPF (0-FEW); RBC,URINE 0 /HPF (0-2); SQUAMOUS EPITHELIAL CELL,UR FEW /LPF; WBC,URINE OCC /HPF (0-4)
[2016-11-09] MEDS ORDERED: IOHEXOL 300 MG/ML 75 ML VIAL ONE (01:34)
[2016-11-09] MEDS ORDERED: CONTRAST GIVEN MC PRN (01:45)
[2016-11-09] MEDS ORDERED: IOHEXOL 300 MG/ML 75 ML VIAL IV ONE (01:45)
--- NOTE | 2016-11-09 02:29 | RAD ---
CT angiogram of the chest with contrast: Reason for examination: Shortness of breath. History of pulmonary emboli. Helical images were obtained through the chest with intravenous administration of 75 cc Omnipaque 300. 3D MIPS reconstruction was performed in sagittal and coronal planes. Exposure: One or more of the following individualized dose reduction techniques were used for this examination: 1. Automated exposure control. 2. Adjustment of the mA and/or kV according to patient size. 3. Use of iterative reconstruction technique. No abnormalities seen in the thyroid gland. The trachea and mainstem bronchi show no intraluminal lesions. No abnormalities seen in the esophagus. The thoracic aorta shows no aneurysmal dilatation or dissection. The heart size is normal with no pericardial effusion evident. There is no evidence of pulmonary embolus. The lung mei show a calcified granuloma in the left upper lobe peripherally. No acute infiltrates, pleural effusions or pneumothorax are seen. There are some mild degenerative changes in the spine but no acute bony abnormalities are seen in the chest. No abnormalities are seen in the visualized portions of the liver, at the spleen, adrenal glands or pancreas. Impression: No evidence pulmonary embolus. No acute intracranial abnormality evident. Electronically signed by: Alla Meeks MD (Nov 09, 2016 02:27:19)
[2016-11-09] MEDS ORDERED: MORPHINE SULFATE 4 MG/ML DISP.SYRIN. IV ONE (02:30)
[2016-11-09] MEDS ORDERED: ACETAMINOPHEN 325 MG TABLET. PO PRN (03:00)
[2016-11-09] MEDS ORDERED: DEXTROSE 50% 25 GM / 50ML DISP.SYRIN. IV PRN (03:00)
[2016-11-09] MEDS: IV NORMAL SALINE 1000ML BAG 1,000 ML IV SCH ×2 (03:13→16:20)
--- NOTE | 2016-11-09 03:18 | PHYS DOC ---
Past Medical History Past Medical History: Asthma, COPD, Diabetes-Type II, High Cholesterol, Hypertension, Migraines, Other Additional Past Medical Histor: sleep apnea; PE, chronic abdominal pain Past Surgical History: Appendectomy, Cholecystectomy, Colectomy, Hysterectomy Additional Past Surgical Histo: breast biopsies; bx cataracts; bx shoulders; umbilical hernia Alcohol Use: None Drug Use: None Adult General Chief Complaint Chief Complaint: SHORTNESS OF BREATH HPI HPI Patient is a 66 year old female who presents with shortness of breath. Patient reports since about 4:00 this afternoon she has been feeling short of breath. She also reports a feeling a little lightheaded and having an aching pain in the left mid back. No clear inciting or mitigating factors. Patient used her inhaler as well as a nebulizer breathing treatment with no improvement. No other acute complaints. Review of Systems Review of Systems Constitutional: Lightheaded. Denies fever or chills Eyes: Denies change in visual acuity or eye pain HENT: Denies nasal congestion or sore throat Respiratory: Shortness of breath Cardiovascular: Denies chest pain GI: Denies abdominal pain, nausea, vomiting, bloody stools or diarrhea : Denies dysuria or hematuria Musculoskeletal: L mid back pain Integument: Denies rash or skin lesions Neurologic: Chronic headache (x6 months). Denies focal weakness or sensory changes Current Medications Current Medications Current Medications Medications (Trade) Dose Ordered Sig/Irish Start Time Stop Time Status Last Admin Dose Admin Info (Do NOT chart on this entry -- for MONITORING) 1 each PRN DAILY PRN 11/09/16 01:45 11/11/16 01:44 Iohexol (Omnipaque 300 Mg/ml) 75 ml STK-MED ONCE 11/09/16 01:34 11/09/16 01:35 DC Morphine Sulfate 4 mg 1X ONCE 11/09/16 02:30 11/09/16 02:31 DC 11/09/16 02:28 4 MG Ondansetron HCl 4 mg 4 mg 1X ONCE 11/09/16 00:30 11/09/16 00:31 DC 11/09/16 00:19 4 MG Sodium Chloride (Iv Sodium Chloride 0.9% 500ml Bag) 500 ml @ 500 mls/hr 1X ONCE 11/09/16 01:00 11/09/16 01:59 DC 11/09/16 01:00 500 MLS/HR Allergies Allergies Allergies Coded Allergies Type Severity Reaction Last Updated Verified Penicillins Allergy Intermediate itching, dry mouth, tongue swells 12/16/15 Yes Sulfa (Sulfonamide Antibiotics) Allergy Intermediate ITCHING DRY MOUTH, hives/ swelling 12/16/15 Yes fentanyl Allergy Intermediate 12/16/15 Yes hydromorphone HCl Allergy Intermediate MORPHINE OK 12/16/15 Yes methylprednisolone Allergy Intermediate RED MAN SYNDROME 10/11/16 Yes prednisone Allergy Intermediate RED MED SYNDROME 10/11/16 Yes oxycodone HCl Adverse Reaction Intermediate "i FEEL LIKE I HAVE WORMS IN ME" Yes Physical Exam Physical Exam Constitutional: Well developed, well nourished, no acute distress, non-toxic appearance HENT: Normocephalic, atraumatic, bilateral external ears normal Eyes: EOMI, conjunctiva normal, no discharge Neck: Normal range of motion, no stridor Cardiovascular: Tachycardic, regular rhythm, no murmur Lungs & Thorax: Bilateral breath sounds clear to auscultation Abdomen: Bowel sounds normal, soft, non-distended, no TTP Skin: Warm, dry, no erythema, no rash Back: No notable deformity or skin lesion Extremities: No obvious deformity, no edema Neurologic: Alert and oriented X 3, no gross deficits noted Current Patient Data Vital Signs Vital Signs Date Time Temp Pulse Resp B/P Pulse Ox O2 Delivery O2 Flow Rate FiO2 11/09/16 02:28 20 11/09/16 02:27 94 146/65 91 Room Air 11/08/16 22:24 98.1 98.1 Lab Values Laboratory Tests Test 11/08/16 23:50 11/09/16 00:00 11/09/16 01:21 11/09/16 02:50 Glucose (Fingerstick) 320mg/dL (70-99) H White Blood Count 9.8x10^3/uL (4.0-11.0) Red Blood Count 4.76x10^6/uL (3.50-5.40) Hemoglobin 13.3g/dL (12.0-15.5) Hematocrit 40.2% (36.0-47.0) Mean Corpuscular Volume 85fL (79-100) Mean Corpuscular Hemoglobin 28pg (25-35) Mean Corpuscular Hemoglobin Concent 33g/dL (31-37) Red Cell Distribution Width 14.8% (11.5-14.5) H Platelet Count 285x10^3/uL (140-400) Neutrophils (%) (Auto) 53% (31-73) Lymphocytes (%) (Auto) 38% (24-48) Monocytes (%) (Auto) 6% (0-9) Eosinophils (%) (Auto) 2% (0-3) Basophils (%) (Auto) 0% (0-3) Neutrophils # (Auto) 5.2x10^3uL (1.8-7.7) Lymphocytes # (Auto) 3.7x10^3/uL (1.0-4.8) Monocytes # (Auto) 0.6x10^3/uL (0.0-1.1) Eosinophils # (Auto) 0.2x10^3/uL (0.0-0.7) Basophils # (Auto) 0.0x10^3/uL (0.0-0.2) Prothrombin Time 13.7SEC (11.7-14.0) Prothrombin Time INR 1.1 (0.8-1.1) Sodium Level 133mmol/L (136-145) L Potassium Level 3.9mmol/L (3.5-5.1) Chloride Level 95mmol/L (98-107) L Carbon Dioxide Level 23mmol/L (21-32) Anion Gap 15 (6-14) H Blood Urea Nitrogen 19mg/dL (7-20) Creatinine 0.9mg/dL (0.6-1.0) Estimated GFR (Cockcroft-Gault) 62.8 Glucose Level 332mg/dL (70-99) H Lactic Acid Level 2.6mmol/L (0.4-2.0) H 1.8mmol/L (0.4-2.0) Calcium Level 9.2mg/dL (8.5-10.1) Troponin I Quantitative < 0.017ng/mL (0.000-0.055) OF-Iuh-D-Type Natriuretic Peptide 29pg/mL (0-124) Urine Collection Type Unknown Urine Color Yellow Urine Clarity Clear Urine pH 7.0 Urine Specific [place] 1.020 Urine Protein Negativemg/dL (NEG-TRACE) Urine Glucose (UA) 500mg/dL (NEG) Urine Ketones (Stick) Negativemg/dL (NEG) Urine Blood Negative (NEG) Urine Nitrite Negative (NEG) Urine Bilirubin Negative (NEG) Urine Urobilinogen Dipstick 0.2mg/dL (0.2 mg/dL) Urine Leukocyte Esterase Negative (NEG) Urine RBC 0/HPF (0-2) Urine WBC Occ/HPF (0-4) Urine Squamous Epithelial Cells Few/LPF Urine Bacteria 0/HPF (0-FEW) Laboratory Tests 11/09/16 00:00 Laboratory Tests 11/09/16 00:00 EKG EKG EKG (my read): sinus rhythm, rate 103, LAD, intervals wnl, TWI lead aVL, no acute ST changes Radiology/Procedures Radiology/Procedures CTA chest: No abnormalities seen in the thyroid gland. The trachea and mainstem bronchi show no intraluminal lesions. No abnormalities seen in the esophagus. The thoracic aorta shows no aneurysmal dilatation or dissection. The heart size is normal with no pericardial effusion evident. There is no evidence of pulmonary embolus. The lung mei show a calcified granuloma in the left upper lobe peripherally. No acute infiltrates, pleural effusions or pneumothorax are seen. There are some mild degenerative changes in the spine but no acute bony abnormalities are seen in the chest. No abnormalities are seen in the visualized portions of the liver, at the spleen, adrenal glands or pancreas. Impression: No evidence pulmonary embolus. No acute intracranial abnormality evident. CXR (my read): No acute abnormality Course & Med Decision Making Course & Med Decision Making Pertinent Labs and Imaging studies reviewed. (See chart for details) Patient is 66-year-old female who presents with shortness of breath, left mid back pain, lightheadedness. Concern for possibility of PE, given history of same and tachycardia noted on monitor. Will obtain EKG, chest x-ray labs to evaluate. CTA chest ordered as well. Labs notable for few mild electrolyte abnormalities, elevated lactic acid, hyperglycemia. Unclear cause for elevated lactic acid; does not appear infectious, no fever and no leukocytosis. Will repeat lactic acid after fluids. EKG and imaging results as above. Discussed results with patient. Discussed with Dr. Sosa (covering for Dr. Castro), will admit under her care for further evaluation and treatment. Dragon Disclaimer Dragon Disclaimer This electronic medical record was generated, in whole or in part, using a voice recognition dictation system. Departure Departure Impression: Primary Impression: SOB (shortness of breath) Additional Impression: Elevated lactic acid level Disposition: ADMITTED INPATIENT Admitting Physician: Aly Resendiz Condition: STABLE Referrals: Meagan CASTRO MD (PCP) Problem Qualifiers EDELMIRA CANO MD Nov 09, 2016 03:18
[2016-11-09 03:30] VITALS: BP 146/74
--- NOTE | 2016-11-09 03:30 | ACF ---
Admission Forms Criteria TELEMETRY CARE Telemetry Admission Guidelines (Place 'X' for any and all applicable criteria): Admission to telemetry [A] may be indicated for ANY ONE of the following(1)(2)(3 )(4)(5): [X]I. Cardiac disease, including ANY ONE of the following (9)(10)(11)(12)(13 ): [ ]a) Postacute OR [ ]b) Low-risk patients with ST-segment elevation OR who have undergone successful percutaneous coronary intervention [ ]c) Unstable angina [ ]d) Suspected OR (until it is ruled out) [ ]e) Post cardiac surgery (first 48 to 72 hours unless complications occur) [X]f) Acute arrhythmias (including significant tachycardia or bradycardia) [B] [ ]g) Firing of an implantable cardioverter defibrillator [C] [ ]h) Suspected pacemaker or implantable cardioverter defibrillator malfunction (10) [ ]i) New administration or adjustment of an antiarrhythmic drug [D ] [ ]j) Child admitted for acute congestive heart failure [ ]j) Long QT syndrome [ ]k) Advanced heart block (eg, second-degree Mobitz type II, third- degree heart block) [ ]l) Acute myocarditis or pericarditis [ ]m) Short-term (ambulatory or inpatient) monitoring after a cardiac procedure as indicated by ANY ONE of the following [E]: [ ]i) Electrophysiologic studies [ ]ii) Percutaneous coronary intervention with stent placement [ ]iii) Pacemaker placement with cardiac conduction defect [ ]iv) Implantable cardiac defibrillator placement [ ]II. Drug overdose or poisoning with substance that causes arrhythmias or QT prolongation (eg, phenothiazines, sympathomimetic agents, cyclic antidepressants, digitalis, antiarrhythmic drugs)(15) [ ]III. Short-term (ambulatory or inpatient) monitoring after therapeutic or diagnostic procedure requiring conscious sedation or anesthesia (eg, endoscopy, elective cardioversion) [ ]IV. Acute cerebrovascular even[F](18) [ ]V. Massive blood transfusion (eg, at least 10 units of packed red blood cells in 24 hours) [ ]. Variceal bleeding after endoscopy, sclerotherapy, or IV vasopressin [ ]VII. Uncorrected electrolyte abnormalities associated with an increased risk of dangerous arrhythmia [G]; examples include [ ]a) Hyperkalemia with attributable ECG changes [ ]b) Potassium greater than 6.5 mmol/L (mEq/L) in a patient without history of chronic renal disease [ ]c) Prolonged QT attributed to hypokalemia, hypomagnesemia, or hypocalcemia [ ]VIII.Unexplained syncope or other neurologic event suspected of being due to arrhythmia due to a finding that increases risk; examples include(19)(20)(21): [ ]a) High-risk ECG findings (eg, bifascicular block, bradycardia, abnormal QT interval, ventricular pre- excitation) [ ]b) History of previous syncope due to arrhythmia [ ]c) Abnormal ventricular function (eg, reduced ejection fraction ) [ ]d) Exertional or supine syncope [ ]e) Concerning syncope characteristics (eg, sudden loss of consciousness without prodrome) [ ]f) Family history of sudden [ ]g) Use of arrhythmogenic medication [ ]h) Suspected cardiac ischemia [ ]i) Known channelopathy (eg, long QT syndrome, Brugada syndrome, or catecholaminergic paroxysmal ventricular tachycardia) [ ]j) Known structural heart disease (eg, hypertrophic cardiomyopathy , severe valvular disease) [ ]k) Palpitations preceding syncope The original [employer] content created by [employer] has been revised. The portions of the content which have been revised are identified through the use of italic text or in bold, and [employer] has neither reviewed nor approved the modified material. All other unmodified content is copyright [employer]. Please see references footnoted in the original [employer] edition 2016 Admission Criteria Met?: Yes AYDE COLEMAN Nov 09, 2016 03:30
[2016-11-09] MEDS: MORPHINE SULFATE 4 MG/ML DISP.SYRIN. IV PRN ×5 (05:19→20:48)
--- NOTE | 2016-11-09 06:29 | EKG ---
[facility] [address] [place] [address] Test Date: 2016-11-08 Test Time: 22:45:46 Pat Name: ELY CARDOZA Department: Room: Gender: F [employer] Worker: : 1950 Requested By: EDELMIRA CANO Order Number: [id number] Reading MD: Measurements Intervals [place] Rate: 103 P: 37 DC: 180 QRS: -27 QRSD: 78 T: 40 QT: 326 QTc: 429 Interpretive Statements SINUS TACHYCARDIA LEFTWARD AXIS R-S TRANSITION ZONE IN V LEADS DISPLACED TO THE LEFT QRS(T) CONTOUR ABNORMALITY CONSIDER ANTEROLATERAL MYOCARDIAL DAMAGE CONSIDER INFERIOR INFARCT POSSIBLY ABNORMAL ECG RI6.01 No previous ECG available for comparison
[2016-11-09 07:25] VITALS: BP 141/75
--- NOTE | 2016-11-09 07:29 | RAD ---
Indication shortness of breath. PA and lateral views of the chest were obtained and are compared to an examination 10/08/2016. The heart and pulmonary vessels appear normal. The lungs are clear. There is no pleural fluid or pneumothorax. There has not been a significant change in the appearance of the chest compared to the prior study. IMPRESSION: No acute finding. No significant change
[2016-11-09] MEDS: INSULIN ASPART 300 UNITS/3 ML INSULN.PEN SQ SCH ×5 (08:18→17:44)
[2016-11-09] MEDS ORDERED: CYCLOBENZAPRINE 10 MG TABLET. PO PRN (08:30)
--- NOTE | 2016-11-09 08:52 | PDOC1 ---
History and Physical Date of Admission Date of Admission DATE: 11/09/16 Identification/Chief Complaint Chief Complaint Short of air Source Source: Patient History of Present Illness History of Present Illness Pt states that she was talking to her daughter yesterday afternoon when she all of a sudden experienced shortness of breath. Occurred again when she was walking to and from congregational, had to stop multiple times. She denies cough or wheezing. She denies chest pain or palpitations. She has a history of PE. INR at home was 2.2 this last Saturday. Past Medical History Cardiovascular: CAD, HTN Pulmonary: Asthma, COPD, Pulmonary embolus, Other GI: GERD Heme/Onc: No pertinent hx Hepatobiliary: No pertinent hx Psych: Depression Rheumatologic: No pertinent hx Infectious disease: No pertinent hx ENT: No pertinent hx Renal/: No pertinent hx Endocrine: Diabetes, Other Past Surgical History Past Surgical History: Appendectomy, Breast Biopsy, Cholecystectomy, Cataract Removal, Hernia Repair, Tonsillectomy, Hysterectomy, Other Family History Family History: Coronary Artery Disease, Diabetes Social History Smoke: No ALCOHOL: none Drugs: None Current Problem List Problem List Problems Medical Problems: (1) Elevated lactic acid level Status: Acute (2) SOB (shortness of breath) Status: Acute Problems: Current Medications Current Medications Current Medications Sodium Chloride (Iv Sodium Chloride 0.9% 500ml Bag) 500 ml @ 500 mls/hr 1X ONCE IV Last administered on 11/09/16 00:13; Start 11/08/16 at 23:15; Stop at 00:14; Status DC Ondansetron HCl 4 mg 4 mg 1X ONCE IV Last administered on 11/09/16 00:19; Start 11/09/16 at 00:30; Stop 11/09/16 at 00:31; Status DC Sodium Chloride (Iv Sodium Chloride 0.9% 500ml Bag) 500 ml @ 500 mls/hr 1X ONCE IV Last administered on 11/09/16 01:00; Start 11/09/16 at 01:00; Stop at 01:59; Status DC Iohexol (Omnipaque 300 Mg/ml) 75 ml 1X ONCE IV ; Start 11/09/16 at 01:45; Stop 11/09/16 at 01:46; Status DC Info (Do NOT chart on this entry -- for MONITORING) 1 each PRN DAILY PRN MC SEE COMMENTS; Start 11/09/16 at 01:45; Stop 11/11/16 at 01:44 Iohexol (Omnipaque 300 Mg/ml) 75 ml STK-MED ONCE .ROUTE ; Start 11/09/16 at 01: 34; Stop 11/09/16 at 01:35; Status DC Morphine Sulfate 4 mg 1X ONCE IV Last administered on 11/09/16 02:28; Start 11/09/16 at 02:30; Stop 11/09/16 at 02:31; Status DC Ondansetron HCl (Zofran) 4 mg PRN Q8HRS PRN IV NAUSEA/VOMITING; Start 11/09/16 at 03:00; Stop 11/10/16 at 02:59 Morphine Sulfate 4 mg 4 mg PRN Q2HR PRN IV PAIN Last administered on 11/09/16 08:07; Start 11/09/16 at 03:00; Stop 11/10/16 at 02:59 Sodium Chloride (Iv Sodium Chloride 0.9% 1000ml Bag) 1,000 ml @ 75 mls/hr [id number] IV Last administered on 11/09/16 03:13; Start 11/09/16 at 03:00; Stop 11/10/16 at 02:59 Acetaminophen (Tylenol) 650 mg PRN Q4HRS PRN PO FEVER; Start 11/09/16 at 03:00 ; Stop 11/10/16 at 02:59 Insulin Aspart (Novolog) 0-7 UNITS TIDWMEALS SQ Last administered on 11/09/16 08:18; Start 11/09/16 at 08:00 Dextrose 12.5 gm PRN Q15MIN PRN IV SEE COMMENTS; Start 11/09/16 at 03:00 Amlodipine Besylate (Norvasc) 5 mg DAILY PO ; Start 11/09/16 at 09:00 Acetaminophen/ Hydrocodone Bitart (Lortab 10/325) 2 tab PRN Q4HRS PRN PO PAIN MILD TO MOD; Start 11/09/16 at 08:30 Insulin Aspart (Novolog) 13 units TIDAC SQ ; Start 11/09/16 at 11:30 Metoprolol Succinate (Toprol Xl) 25 mg DAILY PO ; Start 11/09/16 at 09:00 Pantoprazole Sodium (Protonix) 40 mg DAILYAC PO ; Start 11/09/16 at 09:00 Non-Formulary Medication 1 each BID94 IH ; Start 11/09/16 at 09:00; Status UNV Non-Formulary Medication 15 gm PRN BID PRN IH SHORTNESS OF BREATH; Start at 08:30; Status UNV Non-Formulary Medication 18 mcg DAILY IH ; Start 11/09/16 at 09:00; Status UNV Cyclobenzaprine HCl (Flexeril) 5 mg PRN Q6HRS PRN PO MUSCLE SPASMS; Start 11/09 at 08:30 Duloxetine HCl (Cymbalta) 90 mg DAILY PO ; Start 11/09/16 at 09:00 Simvastatin (Zocor) 10 mg QHS PO ; Start 11/09/16 at 21:00; Status UNV Insulin Detemir (Levemir) 22 units QHS SQ ; Start 11/09/16 at 21:00; Status UNV Insulin Detemir (Levemir) 44 units DAILY SQ ; Start 11/09/16 at 09:00; Status UNV Albuterol/ Ipratropium (Duoneb) 3 ml RTQID NEB ; Start 11/09/16 at 12:00; Status UNV Active Scripts Active Pantoprazole Sodium 40 Mg Tablet.dr 40 Mg PO DAILYAC Hydrocodone-Apap 10-325 (Hydrocodone Bit/Acetaminophen) 1 Each Tablet 2 Tab PO PRN Q4HRS PRN Meclizine Hcl 25 Mg Tablet 1 Tab PO PRN TID PRN Meclizine Hcl 25 Mg Tablet 1 Tab PO PRN TID When necessary for dizziness Zofran (Ondansetron Hcl) 4 Mg Tablet 4 Mg PO BID PRN Cyclobenzaprine Hcl 5 Mg Tablet 5 Mg PO TID Amitiza (Lubiprostone) 8 Mcg Capsule 24 Mcg PO BIDWMEALS Benadryl (Diphenhydramine Hcl) 25 Mg Capsule 25 Mg PO PRN Q4HRS PRN [Ipratropium/Albuterol Sulfate] 3 ML Nebu 3 Ml NEB RTQID [Guaifenesin/Dextromethorphan] 10 ML Syrup 10 Ml PO PRN Q4HRS PRN Reported Novolog Flexpen (Insulin Aspart) 100 Unit/1 Ml Insuln.pen 13 Unit SQ TIDAC Levemir (Insulin Detemir) 100 Unit/1 Ml Vial 22 Unit SQ HS Coumadin (Warfarin Sodium) 10 Mg Tablet 10 Mg PO DAILY Levemir (Insulin Detemir) 100 Unit/1 Ml Vial 44 Unit SQ DAILY08 Dicyclomine Hcl 20 Mg Tablet 1 Tab PO TID Amlodipine Besylate 5 Mg Tablet 1 Tab PO DAILY Metoprolol Succinate ( Xl ) (Metoprolol Succinate) 25 Mg Tab.er.24h 1 Tab PO DAILY Vytorin 10-10 Mg Tablet (Ezetimibe/Simvastatin) 1 Each Tablet 1 Each PO HS Xopenex Hfa (Levalbuterol Tartrate) 15 Gm Hfa.aer.ad 15 Gm IH PRN BID PRN Spiriva (Tiotropium Doyle) 18 Mcg Cap.w.dev 18 Mcg IH DAILY Advair 250-50 Diskus (Fluticasone/Salmeterol) 1 Each Disk.w.dev 1 Each IH BID94 Cymbalta (Duloxetine Hcl) 60 Mg Capsule.dr 90 Mg PO DAILY Singulair Tablet (Montelukast Sodium) 10 Mg Tablet 10 Mg PO HS Lisinopril 40 Mg Tablet 20 Mg PO DAILY Allergies Allergies: Coded Allergies: Penicillins (Verified Allergy, Intermediate, itching, dry mouth, tongue swells, 12/16/15) Sulfa (Sulfonamide Antibiotics) (Verified Allergy, Intermediate, ITCHING DRY MOUTH, hives/swelling, 12/16/15) fentanyl (Verified Allergy, Intermediate, 12/16/15) hydromorphone HCl (Verified Allergy, Intermediate, MORPHINE OK, 12/16/15) methylprednisolone (Verified Allergy, Intermediate, RED MAN SYNDROME, 10/11) prednisone (Verified Allergy, Intermediate, RED MED SYNDROME, 10/11/16) oxycodone HCl (Verified Adverse Reaction, Intermediate, "i FEEL LIKE I HAVE WORMS IN ME", 12/16/15) 06/28 TOLERATING HYDROCODONE/APAP ROS General: No: Chills, Night Sweats PSYCHOLOGICAL ROS: No: Anxiety, Depression Eyes: No Decreased vision, No Eye Pain HEENT: No: Nasal congestion, Sore Throat ALLERGY AND IMMUNOLOGY: No: Hives, Post Nasal Drip Hematological and Lymphatic: No: Bleeding Problems, Blood Clots Respiratory: YES: Shortness of breath, No: Cough, Sputum Changes, Wheezing Cardiovascular: No Chest Pain, No Edema, No Palpitations Gastrointestinal: Yes Abdominal Pain (chronic), Yes Nausea, No Constipation, No Diarrhea, No Vomiting Genitourinary: No Dysuria, No Urgency Musculoskeletal: No Joint Pain, No Joint Swelling Neurological: No Impaired Coord/balance, No Numbness/Tingling, No Weakness Skin: No Rash, No Skin Lesion Changes Physical Exam General: Alert, Oriented X3, Cooperative, No acute distress HEENT: Atraumatic, PERRLA, EOMI, Mucous membr. moist/pink Lungs: Clear to auscultation, Normal air movement Heart: RRR, no rubs, no gallops, no murmurs Abdomen: Normal bowel sounds, Soft, No tenderness, No hepatosplenomegaly Extremities: No clubbing, No cyanosis, No edema Skin: No rashes, No breakdown, No significant lesion Neuro: Normal speech, Cranial nerves 3-12 NL Psych/Mental Status: Mental status NL, Mood NL Vitals Vitals Vital Signs Date Time Temp Pulse Resp B/P Pulse Ox O2 Delivery O2 Flow Rate FiO2 11/09/16 08:07 96 Room Air 11/09/16 07:25 98.1 81 20 141/75 98.1 Labs Labs Laboratory Tests Test 11/08/16 23:50 11/09/16 00:00 11/09/16 01:21 11/09/16 02:50 Glucose (Fingerstick) 320mg/dL (70-99) White Blood Count 9.8x10^3/uL (4.0-11.0) Red Blood Count 4.76x10^6/uL (3.50-5.40) Hemoglobin 13.3g/dL (12.0-15.5) Hematocrit 40.2% (36.0-47.0) Mean Corpuscular Volume 85fL (79-100) Mean Corpuscular Hemoglobin 28pg (25-35) Mean Corpuscular Hemoglobin Concent 33g/dL (31-37) Red Cell Distribution Width 14.8% (11.5-14.5) Platelet Count 285x10^3/uL (140-400) Neutrophils (%) (Auto) 53% (31-73) Lymphocytes (%) (Auto) 38% (24-48) Monocytes (%) (Auto) 6% (0-9) Eosinophils (%) (Auto) 2% (0-3) Basophils (%) (Auto) 0% (0-3) Neutrophils # (Auto) 5.2x10^3uL (1.8-7.7) Lymphocytes # (Auto) 3.7x10^3/uL (1.0-4.8) Monocytes # (Auto) 0.6x10^3/uL (0.0-1.1) Eosinophils # (Auto) 0.2x10^3/uL (0.0-0.7) Basophils # (Auto) 0.0x10^3/uL (0.0-0.2) Prothrombin Time 13.7SEC (11.7-14.0) Prothromb Time International Ratio 1.1 (0.8-1.1) Sodium Level 133mmol/L (136-145) Potassium Level 3.9mmol/L (3.5-5.1) Chloride Level 95mmol/L (98-107) Carbon Dioxide Level 23mmol/L (21-32) Anion Gap 15 (6-14) Blood Urea Nitrogen 19mg/dL (7-20) Creatinine 0.9mg/dL (0.6-1.0) Estimated GFR (Cockcroft-Gault) 62.8 Glucose Level 332mg/dL (70-99) Lactic Acid Level 2.6mmol/L (0.4-2.0) 1.8mmol/L (0.4-2.0) Calcium Level 9.2mg/dL (8.5-10.1) Troponin I Quantitative < 0.017ng/mL (0.000-0.055) EB-Bns-T-Type Natriuretic Peptide 29pg/mL (0-124) Urine Collection Type Unknown Urine Color Yellow Urine Clarity Clear Urine pH 7.0 Urine Specific [place] 1.020 Urine Protein Negativemg/dL (NEG-TRACE) Urine Glucose (UA) 500mg/dL (NEG) Urine Ketones (Stick) Negativemg/dL (NEG) Urine Blood Negative (NEG) Urine Nitrite Negative (NEG) Urine Bilirubin Negative (NEG) Urine Urobilinogen Dipstick 0.2mg/dL (0.2 mg/dL) Urine Leukocyte Esterase Negative (NEG) Urine RBC 0/HPF (0-2) Urine WBC Occ/HPF (0-4) Urine Squamous Epithelial Cells Few/LPF Urine Bacteria 0/HPF (0-FEW) Test 11/09/16 05:15 11/09/16 07:34 Lactic Acid Level 1.7mmol/L (0.4-2.0) Glucose (Fingerstick) 275mg/dL (70-99) Laboratory Tests Test 11/08/16 23:50 11/09/16 00:00 11/09/16 01:21 11/09/16 02:50 Glucose (Fingerstick) 320mg/dL (70-99) White Blood Count 9.8x10^3/uL (4.0-11.0) Red Blood Count 4.76x10^6/uL (3.50-5.40) Hemoglobin 13.3g/dL (12.0-15.5) Hematocrit 40.2% (36.0-47.0) Mean Corpuscular Volume 85fL (79-100) Mean Corpuscular Hemoglobin 28pg (25-35) Mean Corpuscular Hemoglobin Concent 33g/dL (31-37) Red Cell Distribution Width 14.8% (11.5-14.5) Platelet Count 285x10^3/uL (140-400) Neutrophils (%) (Auto) 53% (31-73) Lymphocytes (%) (Auto) 38% (24-48) Monocytes (%) (Auto) 6% (0-9) Eosinophils (%) (Auto) 2% (0-3) Basophils (%) (Auto) 0% (0-3) Neutrophils # (Auto) 5.2x10^3uL (1.8-7.7) Lymphocytes # (Auto) 3.7x10^3/uL (1.0-4.8) Monocytes # (Auto) 0.6x10^3/uL (0.0-1.1) Eosinophils # (Auto) 0.2x10^3/uL (0.0-0.7) Basophils # (Auto) 0.0x10^3/uL (0.0-0.2) Prothrombin Time 13.7SEC (11.7-14.0) Prothromb Time International Ratio 1.1 (0.8-1.1) Sodium Level 133mmol/L (136-145) Potassium Level 3.9mmol/L (3.5-5.1) Chloride Level 95mmol/L (98-107) Carbon Dioxide Level 23mmol/L (21-32) Anion Gap 15 (6-14) Blood Urea Nitrogen 19mg/dL (7-20) Creatinine 0.9mg/dL (0.6-1.0) Estimated GFR (Cockcroft-Gault) 62.8 Glucose Level 332mg/dL (70-99) Lactic Acid Level 2.6mmol/L (0.4-2.0) 1.8mmol/L (0.4-2.0) Calcium Level 9.2mg/dL (8.5-10.1) Troponin I Quantitative < 0.017ng/mL (0.000-0.055) XD-Nty-R-Type Natriuretic Peptide 29pg/mL (0-124) Urine Collection Type Unknown Urine Color Yellow Urine Clarity Clear Urine pH 7.0 Urine Specific [place] 1.020 Urine Protein Negativemg/dL (NEG-TRACE) Urine Glucose (UA) 500mg/dL (NEG) Urine Ketones (Stick) Negativemg/dL (NEG) Urine Blood Negative (NEG) Urine Nitrite Negative (NEG) Urine Bilirubin Negative (NEG) Urine Urobilinogen Dipstick 0.2mg/dL (0.2 mg/dL) Urine Leukocyte Esterase Negative (NEG) Urine RBC 0/HPF (0-2) Urine WBC Occ/HPF (0-4) Urine Squamous Epithelial Cells Few/LPF Urine Bacteria 0/HPF (0-FEW) Test 11/09/16 05:15 11/09/16 07:34 Lactic Acid Level 1.7mmol/L (0.4-2.0) Glucose (Fingerstick) 275mg/dL (70-99) VTE Prophylaxis Ordered VTE Prophylaxis Devices: Yes VTE Pharmacological Prophylaxi: Yes Assessment/Plan Assessment/Plan Pt is a 66yo CF admitted with shortness of air 1)Shortness of air- pt's physical exam is WNL. She has history of COPD and asthma. Pt has history of PE and is subtherapeutic on her Coumadin, but CT Chest did not show reoccurence. No arrhythmias seen on the monitor. Discussed that it could be related to her hyperglycemia. 6 minute walk later today 2)COPD- pt continued on home medications 3)HTN- will resume pt's Norvasc and Metoprolol 25mg XR. Holding Lisinopril 40mg currently 4)DM2- uncontrolled. Pt's HbA1C 08/03 was 10. Pt resumed on Levemir 44units QAM, 22units QHS, Novolog 13units QAC and SSI. CTM 5)HLD- pt continued on Simvastatin 10mg 6)Hx PE/DVT- CT Chest this admission WNL. Pt normally alternated between 7.5mg and 10mg every other day. INR last Saturday was 2.2. Pharmacy to dose 7)Hyponatremia- mild. Pt receiving IVF hydration. LILIA WATT MD Nov 09, 2016 08:52
[2016-11-09] MEDS ORDERED: ALBUTEROL SULFATE 2.5 MG/3 ML NEBU. NEB PRN (09:00)
[2016-11-09 11:03] VITALS: BP 128/62
[2016-11-09] MEDS: METOPROLOL SUCC 24HR ER 25 MG TAB.ER.24H. PO SCH (11:16)
[2016-11-09] MEDS: PANTOPRAZOLE 40 MG TABLET. PO SCH (11:16)
[2016-11-09] MEDS: ONDANSETRON PF 4 MG/2 ML VIAL. IV PRN ×2 (11:17→20:47)
[2016-11-09] MEDS: DULOXETINE HCL 30 MG CAPSULE.DR. PO SCH (11:17)
[2016-11-09] MEDS: AMLODIPINE BESYLATE 5 MG TABLET PO SCH (11:17)
[2016-11-09] MEDS: IPRATRPIUM/ALBUTEROL 0.5/2.5MG 3 ML NEBU. NEB SCH ×3 (11:19→21:16)
[2016-11-09] MEDS: INSULIN DETEMIR 300 UNITS/3 ML INSULN.PEN. SQ SCH ×2 (11:27→20:58)
[2016-11-09] MEDS ORDERED: IPRATRPIUM/ALBUTEROL 0.5/2.5MG 3 ML NEBU. NEB SCH (12:00)
[2016-11-09 14:38] VITALS: BP 112/54
[2016-11-09] MEDS ORDERED: WARFARIN 10 MG TABLET. PO ONE (16:00)
[2016-11-09 19:00] VITALS: BP 120/54
[2016-11-09] MEDS: SIMVASTATIN 10 MG TABLET PO SCH (20:47)
[2016-11-09] MEDS: BUDESONIDE 0.5 MG/2 ML NEBU. NEB SCH (21:17)
[2016-11-09 23:00] VITALS: BP 105/46
[2016-11-10 03:00] VITALS: BP 125/57
[2016-11-10] MEDS ORDERED: ONDANSETRON PF 4 MG/2 ML VIAL. IV PRN (04:45)
[2016-11-10 05:10] LABS: BASO # 0.1 x10^3/uL (0.0-0.2); BASO % 1 % (0-3); EOS % 5 % (0-3); HEMATOCRIT 39.9 % (36.0-47.0); HEMOGLOBIN 12.9 g/dL (12.0-15.5); LYMPH # 3.2 x10^3/uL (1.0-4.8); LYMPH % 39 % (24-48); MEAN CORPUSCULAR HEMOGLOBIN 28 pg (25-35); MEAN CORPUSCULAR HGB CONC 32 g/dL (31-37); MEAN CORPUSCULAR VOLUME 86 fL (79-100); MONO % 7 % (0-9); NEUT % 49 % (31-73); PLATELET COUNT 262 x10^3/uL (140-400); RED BLOOD COUNT 4.67 x10^6/uL (3.50-5.40); RED CELL DISTRIBUTION WIDTH 14.9 % (11.5-14.5); WHITE BLOOD COUNT 8.2 x10^3/uL (4.0-11.0)
[2016-11-10 05:26] LABS: CALCIUM 9.3 mg/dL (8.5-10.1); CREATININE 0.7 mg/dL (0.6-1.0); POTASSIUM 4.2 mmol/L (3.5-5.1)
[2016-11-10 05:30] LABS: INR 1.2 (0.8-1.1); PROTHROMBIN TIME PATIENT 14.9 SEC (11.7-14.0)
[2016-11-10 07:00] VITALS: BP 121/59
[2016-11-10] MEDS: BUDESONIDE 0.5 MG/2 ML NEBU. NEB SCH ×2 (08:29→19:44)
[2016-11-10] MEDS: IPRATRPIUM/ALBUTEROL 0.5/2.5MG 3 ML NEBU. NEB SCH ×4 (08:29→19:44)
[2016-11-10] MEDS: PANTOPRAZOLE 40 MG TABLET. PO SCH (08:59)
[2016-11-10] MEDS: AMLODIPINE BESYLATE 5 MG TABLET PO SCH (09:01)
[2016-11-10] MEDS: DULOXETINE HCL 30 MG CAPSULE.DR. PO SCH (09:02)
[2016-11-10] MEDS: METOPROLOL SUCC 24HR ER 25 MG TAB.ER.24H. PO SCH (09:02)
[2016-11-10] MEDS: HYDROCODONE/APAP 10/325 TABLET. PO PRN ×2 (09:03→20:12)
[2016-11-10] MEDS: INSULIN ASPART 300 UNITS/3 ML INSULN.PEN SQ SCH ×6 (09:07→16:29)
[2016-11-10] MEDS: INSULIN DETEMIR 300 UNITS/3 ML INSULN.PEN. SQ SCH ×2 (09:56→20:15)
[2016-11-10 11:00] VITALS: BP 104/50
[2016-11-10] MEDS: DIPHENHYDRAMINE 50 MG/ML VIAL IVP PRN ×2 (12:08→20:59)
--- NOTE | 2016-11-10 13:28 | PDOC ---
PROGRESS NOTES Subjective Subjective Patient reports she still feels "shaky" and short of breath at times. Denies missing doses of her Coumadin at home. Objective Objective Vital Signs Date Time Temp Pulse Resp B/P Pulse Ox O2 Delivery O2 Flow Rate FiO2 11/10/16 12:44 Room Air 11/10/16 11:00 98.4 84 18 104/50 93 98.4 Intake and Output 11/10/16 07:00 Intake Total 2800 ml Balance 2800 ml Intake Oral 2800 ml # Voids 11 Physical Exam Abdomen: Normal bowel sounds, Soft, No tenderness Heart: Regular rate Extremities: No edema General: Alert, Oriented X3, No acute distress Lungs: Other (Good BS throughout, scant expiratory wheezes) Assessment Assessment Problems Medical Problems: (1) Elevated lactic acid level Status: Acute (2) SOB (shortness of breath) Status: Acute Plan Plan of Care 1. Asthma with shortness of air - patient is without hypoxia, even on 6 minute walk. States this does not feel like an asthma exacerbation to her. CXR was without infiltrate. Patient has trouble tolerating Prednisone so will not start this at this time. Already receiving nebs and steroid nebs, continue these. Encouraged increased activity today. Patient states she does not feel well enough to go home today. 2. DM2 - control improving, continue present insulins and SS. 3. anticoagulation - INR very low at admission, patient denies missing doses and reports it was therapeutic recently on her home dose. Continue daily dose as per Pharmacy. 4. HTN - well controlled, continue home meds. 5. hyponatremia - resolved. Comment Review of Relevant I have reviewed the following items cameron (where applicable) has been applied. Labs Laboratory Tests Test 11/08/16 23:50 11/09/16 00:00 11/09/16 01:21 11/09/16 02:50 Glucose (Fingerstick) 320mg/dL (70-99) White Blood Count 9.8x10^3/uL (4.0-11.0) Red Blood Count 4.76x10^6/uL (3.50-5.40) Hemoglobin 13.3g/dL (12.0-15.5) Hematocrit 40.2% (36.0-47.0) Mean Corpuscular Volume 85fL (79-100) Mean Corpuscular Hemoglobin 28pg (25-35) Mean Corpuscular Hemoglobin Concent 33g/dL (31-37) Red Cell Distribution Width 14.8% (11.5-14.5) Platelet Count 285x10^3/uL (140-400) Neutrophils (%) (Auto) 53% (31-73) Lymphocytes (%) (Auto) 38% (24-48) Monocytes (%) (Auto) 6% (0-9) Eosinophils (%) (Auto) 2% (0-3) Basophils (%) (Auto) 0% (0-3) Neutrophils # (Auto) 5.2x10^3uL (1.8-7.7) Lymphocytes # (Auto) 3.7x10^3/uL (1.0-4.8) Monocytes # (Auto) 0.6x10^3/uL (0.0-1.1) Eosinophils # (Auto) 0.2x10^3/uL (0.0-0.7) Basophils # (Auto) 0.0x10^3/uL (0.0-0.2) Prothrombin Time 13.7SEC (11.7-14.0) Prothromb Time International Ratio 1.1 (0.8-1.1) Sodium Level 133mmol/L (136-145) Potassium Level 3.9mmol/L (3.5-5.1) Chloride Level 95mmol/L (98-107) Carbon Dioxide Level 23mmol/L (21-32) Anion Gap 15 (6-14) Blood Urea Nitrogen 19mg/dL (7-20) Creatinine 0.9mg/dL (0.6-1.0) Estimated GFR (Cockcroft-Gault) 62.8 Glucose Level 332mg/dL (70-99) Lactic Acid Level 2.6mmol/L (0.4-2.0) 1.8mmol/L (0.4-2.0) Calcium Level 9.2mg/dL (8.5-10.1) Troponin I Quantitative < 0.017ng/mL (0.000-0.055) MG-[id number]-[id number]-Type Natriuretic Peptide 29pg/mL (0-124) Urine Collection Type Unknown Urine Color Yellow Urine Clarity Clear Urine pH 7.0 Urine Specific [place] 1.020 Urine Protein Negativemg/dL (NEG-TRACE) Urine Glucose (UA) 500mg/dL (NEG) Urine Ketones (Stick) Negativemg/dL (NEG) Urine Blood Negative (NEG) Urine Nitrite Negative (NEG) Urine Bilirubin Negative (NEG) Urine Urobilinogen Dipstick 0.2mg/dL (0.2 mg/dL) Urine Leukocyte Esterase Negative (NEG) Urine RBC 0/HPF (0-2) Urine WBC Occ/HPF (0-4) Urine Squamous Epithelial Cells Few/LPF Urine Bacteria 0/HPF (0-FEW) Test 11/09/16 05:15 11/09/16 07:34 11/09/16 08:50 11/09/16 11:13 Lactic Acid Level 1.7mmol/L (0.4-2.0) Glucose (Fingerstick) 275mg/dL (70-99) 326mg/dL (70-99) Troponin I Quantitative < 0.017ng/mL (0.000-0.055) Test 11/09/16 14:45 11/09/16 17:04 11/09/16 20:55 11/10/16 04:35 Troponin I Quantitative < 0.017ng/mL (0.000-0.055) Glucose (Fingerstick) 201mg/dL (70-99) 180mg/dL (70-99) White Blood Count 8.2x10^3/uL (4.0-11.0) Red Blood Count 4.67x10^6/uL (3.50-5.40) Hemoglobin 12.9g/dL (12.0-15.5) Hematocrit 39.9% (36.0-47.0) Mean Corpuscular Volume 86fL (79-100) Mean Corpuscular Hemoglobin 28pg (25-35) Mean Corpuscular Hemoglobin Concent 32g/dL (31-37) Red Cell Distribution Width 14.9% (11.5-14.5) Platelet Count 262x10^3/uL (140-400) Neutrophils (%) (Auto) 49% (31-73) Lymphocytes (%) (Auto) 39% (24-48) Monocytes (%) (Auto) 7% (0-9) Eosinophils (%) (Auto) 5% (0-3) Basophils (%) (Auto) 1% (0-3) Neutrophils # (Auto) 4.0x10^3uL (1.8-7.7) Lymphocytes # (Auto) 3.2x10^3/uL (1.0-4.8) Monocytes # (Auto) 0.5x10^3/uL (0.0-1.1) Eosinophils # (Auto) 0.4x10^3/uL (0.0-0.7) Basophils # (Auto) 0.1x10^3/uL (0.0-0.2) Prothrombin Time 14.9SEC (11.7-14.0) Prothromb Time International Ratio 1.2 (0.8-1.1) Sodium Level 137mmol/L (136-145) Potassium Level 4.2mmol/L (3.5-5.1) Chloride Level 101mmol/L (98-107) Carbon Dioxide Level 27mmol/L (21-32) Anion Gap 9 (6-14) Blood Urea Nitrogen 10mg/dL (7-20) Creatinine 0.7mg/dL (0.6-1.0) Estimated GFR (Cockcroft-Gault) 84.0 Glucose Level 172mg/dL (70-99) Calcium Level 9.3mg/dL (8.5-10.1) Test 11/10/16 07:48 11/10/16 12:02 Glucose (Fingerstick) 175mg/dL (70-99) 158mg/dL (70-99) Laboratory Tests Test 11/09/16 14:45 11/09/16 17:04 11/09/16 20:55 11/10/16 04:35 Troponin I Quantitative < 0.017ng/mL (0.000-0.055) Glucose (Fingerstick) 201mg/dL (70-99) 180mg/dL (70-99) White Blood Count 8.2x10^3/uL (4.0-11.0) Red Blood Count 4.67x10^6/uL (3.50-5.40) Hemoglobin 12.9g/dL (12.0-15.5) Hematocrit 39.9% (36.0-47.0) Mean Corpuscular Volume 86fL (79-100) Mean Corpuscular Hemoglobin 28pg (25-35) Mean Corpuscular Hemoglobin Concent 32g/dL (31-37) Red Cell Distribution Width 14.9% (11.5-14.5) Platelet Count 262x10^3/uL (140-400) Neutrophils (%) (Auto) 49% (31-73) Lymphocytes (%) (Auto) 39% (24-48) Monocytes (%) (Auto) 7% (0-9) Eosinophils (%) (Auto) 5% (0-3) Basophils (%) (Auto) 1% (0-3) Neutrophils # (Auto) 4.0x10^3uL (1.8-7.7) Lymphocytes # (Auto) 3.2x10^3/uL (1.0-4.8) Monocytes # (Auto) 0.5x10^3/uL (0.0-1.1) Eosinophils # (Auto) 0.4x10^3/uL (0.0-0.7) Basophils # (Auto) 0.1x10^3/uL (0.0-0.2) Prothrombin Time 14.9SEC (11.7-14.0) Prothromb Time International Ratio 1.2 (0.8-1.1) Sodium Level 137mmol/L (136-145) Potassium Level 4.2mmol/L (3.5-5.1) Chloride Level 101mmol/L (98-107) Carbon Dioxide Level 27mmol/L (21-32) Anion Gap 9 (6-14) Blood Urea Nitrogen 10mg/dL (7-20) Creatinine 0.7mg/dL (0.6-1.0) Estimated GFR (Cockcroft-Gault) 84.0 Glucose Level 172mg/dL (70-99) Calcium Level 9.3mg/dL (8.5-10.1) Test 11/10/16 07:48 11/10/16 12:02 Glucose (Fingerstick) 175mg/dL (70-99) 158mg/dL (70-99) Microbiology 11/09/16 Blood Culture - Preliminary, Resulted NO GROWTH AFTER 1 DAY Medications Current Medications Sodium Chloride (Iv Sodium Chloride 0.9% 500ml Bag) 500 ml @ 500 mls/hr 1X ONCE IV Last administered on 11/09/16t 00:13; Start 11/08/16 at 23:15; Stop at 00:14; Status DC Ondansetron HCl 4 mg 4 mg 1X ONCE IV Last administered on 11/09/16 00:19; Start 11/09/16 at 00:30; Stop 11/09/16 at 00:31; Status DC Sodium Chloride (Iv Sodium Chloride 0.9% 500ml Bag) 500 ml @ 500 mls/hr 1X ONCE IV Last administered on 11/09/16 01:00; Start 11/09/16 at 01:00; Stop at 01:59; Status DC Iohexol (Omnipaque 300 Mg/ml) 75 ml 1X ONCE IV ; Start 11/09/16 at 01:45; Stop 11/09/16 at 01:46; Status DC Info (Do NOT chart on this entry -- for MONITORING) 1 each PRN DAILY PRN MC SEE COMMENTS; Start 11/09/16 at 01:45; Stop 11/11/16 at 01:44 Iohexol (Omnipaque 300 Mg/ml) 75 ml STK-MED ONCE .ROUTE ; Start 11/09/16 at 01: 34; Stop 11/09/16 at 01:35; Status DC Morphine Sulfate 4 mg 1X ONCE IV Last administered on 11/09/16 02:28; Start 11/09/16 at 02:30; Stop 11/09/16 at 02:31; Status DC Ondansetron HCl (Zofran) 4 mg PRN Q8HRS PRN IV NAUSEA/VOMITING Last administered on 11/09/16 20:47; Start 11/09/16 at 03:00; Stop 11/10/16 at 02:59 ; Status DC Morphine Sulfate 4 mg 4 mg PRN Q2HR PRN IV PAIN Last administered on 11/09/16 20:48; Start 11/09/16 at 03:00; Stop 11/10/16 at 02:59; Status DC Sodium Chloride (Iv Sodium Chloride 0.9% 1000ml Bag) 1,000 ml @ 75 mls/hr [id number] IV Last administered on 11/09/16 03:13; Start 11/09/16 at 03:00; Stop 11/10/16 at 02:59; Status DC Acetaminophen (Tylenol) 650 mg PRN Q4HRS PRN PO FEVER; Start 11/09/16 at 03:00 ; Stop 11/10/16 at 02:59; Status DC Insulin Aspart (Novolog) 0-7 UNITS TIDWMEALS SQ Last administered on 11/10/16 12:00; Start 11/09/16 at 08:00 Dextrose 12.5 gm PRN Q15MIN PRN IV SEE COMMENTS; Start 11/09/16 at 03:00 Amlodipine Besylate (Norvasc) 5 mg DAILY PO Last administered on 11/10/16 09: 01; Start 11/09/16 at 09:00 Acetaminophen/ Hydrocodone Bitart (Lortab 10/325) 2 tab PRN Q4HRS PRN PO PAIN MILD TO MOD Last administered on 11/10/16 09:03; Start 11/09/16 at 08:30 Insulin Aspart (Novolog) 13 units TIDAC SQ Last administered on 11/10/16 11:30 ; Start 11/09/16 at 11:30 Metoprolol Succinate (Toprol Xl) 25 mg DAILY PO Last administered on 11/10/16 09:02; Start 11/09/16 at 09:00 Pantoprazole Sodium (Protonix) 40 mg DAILYAC PO Last administered on 11/10/16 08:59; Start 11/09/16 at 09:00 Budesonide (Pulmicort) 0.5 mg RTBID NEB Last administered on 11/10/16 08:29; Start 11/09/16 at 20:00 Albuterol Sulfate (Ventolin Neb Soln) 2.5 mg PRN BID PRN NEB SOA Last administered on 11/09/16 21:15; Start 11/09/16 at 09:00 Albuterol/ Ipratropium (Duoneb) 3 ml RTQID NEB Last administered on 11/10/16 12:34; Start 11/09/16 at 12:00 Cyclobenzaprine HCl (Flexeril) 5 mg PRN Q6HRS PRN PO MUSCLE SPASMS; Start 11/09 at 08:30 Duloxetine HCl (Cymbalta) 90 mg DAILY PO Last administered on 11/10/16 09:02; Start 11/09/16 at 09:00 Simvastatin (Zocor) 10 mg QHS PO Last administered on 11/09/16 20:47; Start at 21:00 Insulin Detemir (Levemir) 22 units QHS SQ Last administered on 11/09/16 20:58 ; Start 11/09/16 at 21:00 Insulin Detemir (Levemir) 44 units DAILY SQ Last administered on 11/10/16 09: 56; Start 11/09/16 at 09:00 Albuterol/ Ipratropium (Duoneb) 3 ml RTQID NEB ; Start 11/09/16 at 12:00; Status Cancel Warfarin Sodium (Coumadin Per Pharmacy) 1 each PRN DAILY PRN MC SEE COMMENTS Last administered on 11/09/16 13:00; Start 11/09/16 at 09:00 Warfarin Sodium (Coumadin) 10 mg 1X WARF ONCE PO Last administered on 17:34; Start 11/09/16 at 16:00; Stop 11/09/16 at 16:01; Status DC Ondansetron HCl (Zofran) 4 mg PRN Q8HRS PRN IV NAUSEA/VOMITING Last administered on 11/10/16 05:08; Start 11/10/16 at 04:45 Diphenhydramine HCl (Benadryl) 50 mg PRN Q6HRS PRN IVP ITCHING Last administered on 11/10/16 12:08; Start 11/10/16 at 12:00 Active Scripts Active Pantoprazole Sodium 40 Mg Tablet.dr 40 Mg PO DAILYAC Hydrocodone-Apap 10-325 (Hydrocodone Bit/Acetaminophen) 1 Each Tablet 2 Tab PO PRN Q4HRS PRN Meclizine Hcl 25 Mg Tablet 1 Tab PO PRN TID PRN Meclizine Hcl 25 Mg Tablet 1 Tab PO PRN TID When necessary for dizziness Zofran (Ondansetron Hcl) 4 Mg Tablet 4 Mg PO BID PRN Cyclobenzaprine Hcl 5 Mg Tablet 5 Mg PO TID Amitiza (Lubiprostone) 8 Mcg Capsule 24 Mcg PO BIDWMEALS Benadryl (Diphenhydramine Hcl) 25 Mg Capsule 25 Mg PO PRN Q4HRS PRN [Ipratropium/Albuterol Sulfate] 3 ML Nebu 3 Ml NEB RTQID [Guaifenesin/Dextromethorphan] 10 ML Syrup 10 Ml PO PRN Q4HRS PRN Reported Novolog Flexpen (Insulin Aspart) 100 Unit/1 Ml Insuln.pen 13 Unit SQ TIDAC Levemir (Insulin Detemir) 100 Unit/1 Ml Vial 22 Unit SQ HS Coumadin (Warfarin Sodium) 10 Mg Tablet 10 Mg PO DAILY Levemir (Insulin Detemir) 100 Unit/1 Ml Vial 44 Unit SQ DAILY08 Dicyclomine Hcl 20 Mg Tablet 1 Tab PO TID Amlodipine Besylate 5 Mg Tablet 1 Tab PO DAILY Metoprolol Succinate ( Xl ) (Metoprolol Succinate) 25 Mg Tab.er.24h 1 Tab PO DAILY Vytorin 10-10 Mg Tablet (Ezetimibe/Simvastatin) 1 Each Tablet 1 Each PO HS Xopenex Hfa (Levalbuterol Tartrate) 15 Gm Hfa.aer.ad 15 Gm IH PRN BID PRN Spiriva (Tiotropium [place]) 18 Mcg Cap.w.dev 18 Mcg IH DAILY Advair 250-50 Diskus (Fluticasone/Salmeterol) 1 Each Disk.w.dev 1 Each IH BID94 Cymbalta (Duloxetine Hcl) 60 Mg Capsule.dr 90 Mg PO DAILY Singulair Tablet (Montelukast Sodium) 10 Mg Tablet 10 Mg PO HS Lisinopril 40 Mg Tablet 20 Mg PO DAILY Vitals/I & O Vital Sign - Last 24 Hours 11/09/16 11/09/16 11/09/16 11/09/16 14:38 17:34 19:00 20:00 Temp 97.9 98.6 97.9 98.6 Pulse 83 87 Resp 19 19 B/P 112/54 120/54 Pulse Ox 95 95 95 O2 Delivery Room Air Room Air Room Air Room Air 11/09/16 11/09/16 11/09/16 11/09/16 20:48 21:17 21:20 23:00 Temp 98.6 98.6 Pulse 89 Resp 19 B/P 105/46 Pulse Ox 95 93 93 91 O2 Delivery Room Air Room Air Room Air Room Air 11/10/16 11/10/16 11/10/16 11/10/16 03:00 07:00 08:00 08:30 Temp 97.7 97.8 97.7 97.8 Pulse 85 82 Resp 18 18 B/P 125/57 121/59 Pulse Ox 94 94 94 O2 Delivery Room Air Room Air Room Air Room Air 11/10/16 11/10/16 11/10/16 11/10/16 08:31 09:01 09:02 09:03 Pulse 78 82 Resp 18 B/P 121/59 121/59 Pulse Ox 94 O2 Delivery Room Air Room Air 11/10/16 11/10/16 11/10/16 10:03 11:00 12:44 Temp 98.4 98.4 Pulse 84 Resp 22 18 B/P 104/50 Pulse Ox 94 93 O2 Delivery Room Air Room Air Room Air Intake and Output 11/09/16 11/09/16 11/10/16 15:00 23:00 07:00 Intake Total 2200 ml 600 ml Balance 2200 ml 600 ml NIKO GIBBONS MD Nov 10, 2016 13:28
[2016-11-10 15:00] VITALS: BP 113/54
[2016-11-10] MEDS ORDERED: WARFARIN 10 MG TABLET. PO ONE (16:00)
[2016-11-10 19:54] VITALS: BP 106/48
[2016-11-10] MEDS: SIMVASTATIN 10 MG TABLET PO SCH (20:11)
[2016-11-10] MEDS: ONDANSETRON PF 4 MG/2 ML VIAL. IV PRN (22:24)
[2016-11-10 23:02] VITALS: BP 112/45
[2016-11-11] MEDS: DIPHENHYDRAMINE 50 MG/ML VIAL IVP PRN ×2 (02:41→09:15)
[2016-11-11] MEDS: HYDROCODONE/APAP 10/325 TABLET. PO PRN (02:42)
[2016-11-11 03:34] VITALS: BP_SYST 123
[2016-11-11 05:36] LABS: INR 1.4 (0.8-1.1); PROTHROMBIN TIME PATIENT 16.6 SEC (11.7-14.0)
[2016-11-11] MEDS: ONDANSETRON PF 4 MG/2 ML VIAL. IV PRN (06:20)
[2016-11-11] MEDS: BUDESONIDE 0.5 MG/2 ML NEBU. NEB SCH (07:24)
[2016-11-11] MEDS: IPRATRPIUM/ALBUTEROL 0.5/2.5MG 3 ML NEBU. NEB SCH ×2 (07:24→10:53)
[2016-11-11 07:35] VITALS: BP 141/43
[2016-11-11] MEDS: DULOXETINE HCL 30 MG CAPSULE.DR. PO SCH (09:13)
[2016-11-11] MEDS: PANTOPRAZOLE 40 MG TABLET. PO SCH (09:14)
[2016-11-11] MEDS: METOPROLOL SUCC 24HR ER 25 MG TAB.ER.24H. PO SCH (09:14)
[2016-11-11] MEDS: AMLODIPINE BESYLATE 5 MG TABLET PO SCH (09:14)
[2016-11-11] MEDS: INSULIN DETEMIR 300 UNITS/3 ML INSULN.PEN. SQ SCH (09:26)
[2016-11-11] MEDS: INSULIN ASPART 300 UNITS/3 ML INSULN.PEN SQ SCH ×6 (09:27→17:46)
[2016-11-11 11:05] VITALS: BP 120/70
--- NOTE | 2016-11-11 11:06 | PDOC ---
PROGRESS NOTES Subjective Subjective Patient states she feels better, ready to go home today. Objective Objective Vital Signs Date Time Temp Pulse Resp B/P Pulse Ox O2 Delivery O2 Flow Rate FiO2 11/11/16 10:54 91 Room Air 11/11/16 09:14 86 141/43 11/11/16 07:35 98.4 18 98.4 Intake and Output 11/11/16 07:00 Intake Total 1600 ml Balance 1600 ml Intake Oral 1600 ml # Voids 8 # Bowel Movements 1 Physical Exam Abdomen: Normal bowel sounds, Soft, No tenderness Heart: Regular rate Extremities: No edema General: Alert, Oriented X3, No acute distress Lungs: Other (BS mildly decreased throughout but CTA, no wheezes, no cough with exam) Assessment Assessment Problems Medical Problems: (1) Elevated lactic acid level Status: Acute (2) SOB (shortness of breath) Status: Acute Plan Plan of Care 1. Asthma with SOA - symptoms have improved, home today on her usual meds. Able to walk 250 feet with PT without desaturation. 2. DM2 - well controlled, continue insulins. 3. anticoagulation - INR still low, home on increased dose of 10mg daily. Patient to check INR on or . 4. HTN - controlled, continue home meds. Comment Review of Relevant I have reviewed the following items cameron (where applicable) has been applied. Labs Laboratory Tests Test 11/09/16 11:13 11/09/16 14:45 11/09/16 17:04 11/09/16 20:55 Glucose (Fingerstick) 326mg/dL (70-99) 201mg/dL (70-99) 180mg/dL (70-99) Troponin I Quantitative < 0.017ng/mL (0.000-0.055) Test 11/10/16 04:35 11/10/16 07:48 11/10/16 12:02 11/10/16 16:19 White Blood Count 8.2x10^3/uL (4.0-11.0) Red Blood Count 4.67x10^6/uL (3.50-5.40) Hemoglobin 12.9g/dL (12.0-15.5) Hematocrit 39.9% (36.0-47.0) Mean Corpuscular Volume 86fL (79-100) Mean Corpuscular Hemoglobin 28pg (25-35) Mean Corpuscular Hemoglobin Concent 32g/dL (31-37) Red Cell Distribution Width 14.9% (11.5-14.5) Platelet Count 262x10^3/uL (140-400) Neutrophils (%) (Auto) 49% (31-73) Lymphocytes (%) (Auto) 39% (24-48) Monocytes (%) (Auto) 7% (0-9) Eosinophils (%) (Auto) 5% (0-3) Basophils (%) (Auto) 1% (0-3) Neutrophils # (Auto) 4.0x10^3uL (1.8-7.7) Lymphocytes # (Auto) 3.2x10^3/uL (1.0-4.8) Monocytes # (Auto) 0.5x10^3/uL (0.0-1.1) Eosinophils # (Auto) 0.4x10^3/uL (0.0-0.7) Basophils # (Auto) 0.1x10^3/uL (0.0-0.2) Prothrombin Time 14.9SEC (11.7-14.0) Prothromb Time International Ratio 1.2 (0.8-1.1) Sodium Level 137mmol/L (136-145) Potassium Level 4.2mmol/L (3.5-5.1) Chloride Level 101mmol/L (98-107) Carbon Dioxide Level 27mmol/L (21-32) Anion Gap 9 (6-14) Blood Urea Nitrogen 10mg/dL (7-20) Creatinine 0.7mg/dL (0.6-1.0) Estimated GFR (Cockcroft-Gault) 84.0 Glucose Level 172mg/dL (70-99) Calcium Level 9.3mg/dL (8.5-10.1) Glucose (Fingerstick) 175mg/dL (70-99) 158mg/dL (70-99) 107mg/dL (70-99) Test 11/10/16 20:13 11/11/16 04:15 11/11/16 07:51 Glucose (Fingerstick) 149mg/dL (70-99) 180mg/dL (70-99) Prothrombin Time 16.6SEC (11.7-14.0) Prothromb Time International Ratio 1.4 (0.8-1.1) Laboratory Tests Test 11/10/16 12:02 11/10/16 16:19 11/10/16 20:13 11/11/16 04:15 Glucose (Fingerstick) 158mg/dL (70-99) 107mg/dL (70-99) 149mg/dL (70-99) Prothrombin Time 16.6SEC (11.7-14.0) Prothromb Time International Ratio 1.4 (0.8-1.1) Test 11/11/16 07:51 Glucose (Fingerstick) 180mg/dL (70-99) Microbiology 11/09/16 Blood Culture - Preliminary, Resulted NO GROWTH AFTER 2 DAYS Medications Current Medications Sodium Chloride (Iv Sodium Chloride 0.9% 500ml Bag) 500 ml @ 500 mls/hr 1X ONCE IV Last administered on 11/09/16 00:13; Start 11/08/16 at 23:15; Stop at 00:14; Status DC Ondansetron HCl 4 mg 4 mg 1X ONCE IV Last administered on 11/09/16 00:19; Start 11/09/16 at 00:30; Stop 11/09/16 at 00:31; Status DC Sodium Chloride (Iv Sodium Chloride 0.9% 500ml Bag) 500 ml @ 500 mls/hr 1X ONCE IV Last administered on 11/09/16 01:00; Start 11/09/16 at 01:00; Stop at 01:59; Status DC Iohexol (Omnipaque 300 Mg/ml) 75 ml 1X ONCE IV ; Start 11/09/16 at 01:45; Stop 11/09/16 at 01:46; Status DC Info (Do NOT chart on this entry -- for MONITORING) 1 each PRN DAILY PRN MC SEE COMMENTS; Start 11/09/16 at 01:45; Stop 11/11/16 at 01:44; Status DC Iohexol (Omnipaque 300 Mg/ml) 75 ml STK-MED ONCE .ROUTE ; Start 11/09/16 at 01: 34; Stop 11/09/16 at 01:35; Status DC Morphine Sulfate 4 mg 1X ONCE IV Last administered on 11/09/16 02:28; Start 11/09/16 at 02:30; Stop 11/09/16 at 02:31; Status DC Ondansetron HCl (Zofran) 4 mg PRN Q8HRS PRN IV NAUSEA/VOMITING Last administered on 11/09/16 20:47; Start 11/09/16 at 03:00; Stop 11/10/16 at 02:59 ; Status DC Morphine Sulfate 4 mg 4 mg PRN Q2HR PRN IV PAIN Last administered on 11/09/16 20:48; Start 11/09/16 at 03:00; Stop 11/10/16 at 02:59; Status DC Sodium Chloride (Iv Sodium Chloride 0.9% 1000ml Bag) 1,000 ml @ 75 mls/hr [id number] IV Last administered on 11/09/16 03:13; Start 11/09/16 at 03:00; Stop 11/10/16 at 02:59; Status DC Acetaminophen (Tylenol) 650 mg PRN Q4HRS PRN PO FEVER; Start 11/09/16 at 03:00 ; Stop 11/10/16 at 02:59; Status DC Insulin Aspart (Novolog) 0-7 UNITS TIDWMEALS SQ Last administered on 11/11/16 09:28; Start 11/09/16 at 08:00 Dextrose 12.5 gm PRN Q15MIN PRN IV SEE COMMENTS; Start 11/09/16 at 03:00 Amlodipine Besylate (Norvasc) 5 mg DAILY PO Last administered on 11/11/16 09: 14; Start 11/09/16 at 09:00 Acetaminophen/ Hydrocodone Bitart (Lortab 10/325) 2 tab PRN Q4HRS PRN PO PAIN MILD TO MOD Last administered on 11/11/16 02:42; Start 11/09/16 at 08:30 Insulin Aspart (Novolog) 13 units TIDAC SQ Last administered on 11/11/16 09:27 ; Start 11/09/16 at 11:30 Metoprolol Succinate (Toprol Xl) 25 mg DAILY PO Last administered on 11/11/16 09:14; Start 11/09/16 at 09:00 Pantoprazole Sodium (Protonix) 40 mg DAILYAC PO Last administered on 11/11/16 09:14; Start 11/09/16 at 09:00 Budesonide (Pulmicort) 0.5 mg RTBID NEB Last administered on 11/11/16 07:24; Start 11/09/16 at 20:00 Albuterol Sulfate (Ventolin Neb Soln) 2.5 mg PRN BID PRN NEB SOA Last administered on 11/09/16 21:15; Start 11/09/16 at 09:00 Albuterol/ Ipratropium (Duoneb) 3 ml RTQID NEB Last administered on 11/11/16 10:53; Start 11/09/16 at 12:00 Cyclobenzaprine HCl (Flexeril) 5 mg PRN Q6HRS PRN PO MUSCLE SPASMS; Start 11/09 at 08:30 Duloxetine HCl (Cymbalta) 90 mg DAILY PO Last administered on 11/11/16 09:13; Start 11/09/16 at 09:00 Simvastatin (Zocor) 10 mg QHS PO Last administered on 11/10/16 20:11; Start at 21:00 Insulin Detemir (Levemir) 22 units QHS SQ Last administered on 11/10/16 20:15 ; Start 11/09/16 at 21:00 Insulin Detemir (Levemir) 44 units DAILY SQ Last administered on 11/11/16 09: 26; Start 11/09/16 at 09:00 Albuterol/ Ipratropium (Duoneb) 3 ml RTQID NEB ; Start 11/09/16 at 12:00; Status Cancel Warfarin Sodium (Coumadin Per Pharmacy) 1 each PRN DAILY PRN MC SEE COMMENTS Last administered on 11/10/16 13:12; Start 11/09/16 at 09:00 Warfarin Sodium (Coumadin) 10 mg 1X WARF ONCE PO Last administered on 17:34; Start 11/09/16 at 16:00; Stop 11/09/16 at 16:01; Status DC Ondansetron HCl (Zofran) 4 mg PRN Q8HRS PRN IV NAUSEA/VOMITING Last administered on 11/10/16 05:08; Start 11/10/16 at 04:45 Diphenhydramine HCl (Benadryl) 50 mg PRN Q6HRS PRN IVP ITCHING Last administered on 11/11/16 09:15; Start 11/10/16 at 12:00 Warfarin Sodium (Coumadin) 10 mg 1X WARF ONCE PO Last administered on 16:21; Start 11/10/16 at 16:00; Stop 11/10/16 at 16:01; Status DC Ondansetron HCl (Zofran) 4 mg PRN Q6HRS PRN IV NAUSEA/VOMITING Last administered on 11/11/16 06:20; Start 11/10/16 at 17:15 Active Scripts Active Pantoprazole Sodium 40 Mg Tablet.dr 40 Mg PO DAILYAC Hydrocodone-Apap 10-325 (Hydrocodone Bit/Acetaminophen) 1 Each Tablet 2 Tab PO PRN Q4HRS PRN Meclizine Hcl 25 Mg Tablet 1 Tab PO PRN TID PRN Meclizine Hcl 25 Mg Tablet 1 Tab PO PRN TID When necessary for dizziness Zofran (Ondansetron Hcl) 4 Mg Tablet 4 Mg PO BID PRN Cyclobenzaprine Hcl 5 Mg Tablet 5 Mg PO TID Amitiza (Lubiprostone) 8 Mcg Capsule 24 Mcg PO BIDWMEALS Benadryl (Diphenhydramine Hcl) 25 Mg Capsule 25 Mg PO PRN Q4HRS PRN [Ipratropium/Albuterol Sulfate] 3 ML Nebu 3 Ml NEB RTQID [Guaifenesin/Dextromethorphan] 10 ML Syrup 10 Ml PO PRN Q4HRS PRN Reported Novolog Flexpen (Insulin Aspart) 100 Unit/1 Ml Insuln.pen 13 Unit SQ TIDAC Levemir (Insulin Detemir) 100 Unit/1 Ml Vial 22 Unit SQ HS Coumadin (Warfarin Sodium) 10 Mg Tablet 10 Mg PO DAILY Levemir (Insulin Detemir) 100 Unit/1 Ml Vial 44 Unit SQ DAILY08 Dicyclomine Hcl 20 Mg Tablet 1 Tab PO TID Amlodipine Besylate 5 Mg Tablet 1 Tab PO DAILY Metoprolol Succinate ( Xl ) (Metoprolol Succinate) 25 Mg Tab.er.24h 1 Tab PO DAILY Vytorin 10-10 Mg Tablet (Ezetimibe/Simvastatin) 1 Each Tablet 1 Each PO HS Xopenex Hfa (Levalbuterol Tartrate) 15 Gm Hfa.aer.ad 15 Gm IH PRN BID PRN Spiriva (Tiotropium [place]) 18 Mcg Cap.w.dev 18 Mcg IH DAILY Advair 250-50 Diskus (Fluticasone/Salmeterol) 1 Each Disk.w.dev 1 Each IH BID94 Cymbalta (Duloxetine Hcl) 60 Mg Capsule.dr 90 Mg PO DAILY Singulair Tablet (Montelukast Sodium) 10 Mg Tablet 10 Mg PO HS Lisinopril 40 Mg Tablet 20 Mg PO DAILY Vitals/I & O Vital Sign - Last 24 Hours 11/10/16 11/10/16 11/10/16 11/10/16 12:44 15:00 17:22 19:48 Temp 98.0 98.0 Pulse 79 Resp 18 B/P 113/54 Pulse Ox 96 O2 Delivery Room Air Room Air Room Air Room Air 11/10/16 11/10/16 11/10/16 11/10/16 19:54 20:00 20:12 23:02 Temp 98.4 97.9 98.4 97.9 Pulse 80 82 Resp 16 16 B/P 106/48 112/45 Pulse Ox 91 91 92 O2 Delivery Room Air Room Air Room Air Room Air 11/11/16 11/11/16 11/11/16 11/11/16 02:42 03:34 03:44 07:26 Temp 97.9 97.9 Pulse 83 Resp 16 B/P 123/ Pulse Ox 92 90 90 95 O2 Delivery Room Air Room Air Room Air Room Air 11/11/16 11/11/16 11/11/16 11/11/16 07:35 09:14 09:14 10:54 Temp 98.4 98.4 Pulse 86 86 86 Resp 18 B/P 141/43 141/43 141/43 Pulse Ox 91 91 O2 Delivery Room Air Room Air Intake and Output 11/10/16 11/10/16 11/11/16 15:00 23:00 07:00 Intake Total 900 ml 700 ml Balance 900 ml 700 ml NIKO GIBBONS MD Nov 11, 2016 11:06
[2016-11-11 15:45] VITALS: BP 127/53
[2016-11-11] MEDS ORDERED: WARFARIN 10 MG TABLET. PO ONE (16:00)
--- NOTE | 2016-11-11 18:04 | DS ---
DATE OF DISCHARGE: 11/11/2016 CHIEF COMPLAINT: Shortness of breath. HISTORY OF PRESENT ILLNESS: The patient is a 66-year-old female with multiple chronic conditions including asthma, who presented to the Emergency Room with the above complaint. She had the abrupt onset of symptoms on the day of admission. Her shortness of breath occurred intermittently, but seemed to persist, she did not have cough or wheezing with it. She presented to the Emergency Room. She was not hypoxic on room air and a chest x-ray was clear; however, her INR was found to be subtherapeutic at 1.1 and her lactic acid was mildly elevated at 2.6 and so she was admitted for further treatment. HOSPITAL COURSE: The patient remained without hypoxia on room air. A CT of the chest was done as the patient does have a history of pulmonary emboli and was subtherapeutic on her INR. The CT of the chest was without acute findings. The patient denied missing doses of her Coumadin. She had been alternating 7.5 mg with 10 mg every other day as advised by Dr. Castro previously and home check of her INR the previous week had been therapeutic at 2.2. The patient's shortness of air gradually resolved. She had some very mild wheezing on chest exam, but because she has such difficulty tolerating prednisone it was not started. She received nebulized steroids. A 6-minute walk was without hypoxia. The patient states that she does feel better today and is ready to return home. There was no wheezing on her chest exam today. The patient's diabetes is controlled with her insulins. Her Coumadin dose was increased to 10 mg daily and she will check this at home after several days at this higher dose Blood pressure is well controlled and her other chronic medical conditions were stable with her usual medications. The patient feels better and will return home later today. FINAL DIAGNOSES: 1. Asthma with exacerbation. 2. Diabetes mellitus type 2, insulin-dependent. 3. Subtherapeutic anticoagulation. 4. Hypertension. DISCHARGE MEDICATIONS: Amlodipine 5 mg daily, Flexeril 5 mg t.i.d., dicyclomine 20 mg t.i.d. p.r.n., Benadryl 25 mg p.o. p.r.n., Cymbalta 90 mg daily, Vytorin 10/10 one daily, Advair 250/50 one puff b.i.d., [place] 10/325 p.r.n., NovoLog insulin 13 units t.i.d. a.c., Levemir insulin 44 units daily, Xopenex nebulized treatments p.r.n., lisinopril 20 mg daily Amitiza 24 mcg b.i.d., meclizine 25 mg t.i.d. p.r.n., Toprol-XL 25 mg daily, Singulair 10 mg daily, Zofran 4 mg b.i.d. p.r.n. nausea, Protonix 40 mg daily, Spiriva 1 puff daily and Coumadin 10 mg daily. FOLLOWUP: With Dr. Castro as needed. NIKO GIBBONS MD DR: CECELIA/alyce JOB#: [id number] / [id number] TRENT
== END 2016-11-11 19:50 | disposition home or self-care (01) | DRG 202 ==
LOC: ER 22:12 → 6 SOUTH 11-09 02:50
PROVIDERS: ADMIT Family Medicine; ATTEND Family Medicine
DX: J45.901 Unspecified asthma with (acute) exacerbation (principal); E87.1 Hypo-osmolality and hyponatremia; E78.00 Pure hypercholesterolemia, unspecified; E11.65 Type 2 diabetes mellitus with hyperglycemia; E78.5 Hyperlipidemia, unspecified; I10 Essential (primary) hypertension; I25.10 Atherosclerotic heart disease of native coronary artery without angina pectoris; J44.9 Chronic obstructive pulmonary disease, unspecified; F32.9 Major depressive disorder, single episode, unspecified; G43.909 Migraine, unspecified, not intractable, without status migrainosus; G89.29 Other chronic pain; M54.9 Dorsalgia, unspecified; K21.9 Gastro-esophageal reflux disease without esophagitis; Z79.4 Long term (current) use of insulin; Z82.49 Family history of ischemic heart disease and other diseases of the circulatory system; Z86.711 Personal history of pulmonary embolism; Z83.3 Family history of diabetes mellitus; Z90.49 Acquired absence of other specified parts of digestive tract; Z90.710 Acquired absence of both cervix and uterus; Z93.3 Colostomy status; Z88.5 Allergy status to narcotic agent; Z88.0 Allergy status to penicillin; Z88.2 Allergy status to sulfonamides; Z88.8 Allergy status to other drugs, medicaments and biological substances
CPT/HCPCS: 36415; 71020; 71275; 80048; 81001; 82947; 83605; 83880; 84484; 85027; 85610; 87040; 93005; 94250; 94620; 94640; 94760; 96361; 96374; 96375; J1200; J1815; J2270; J2405; J7030; J7040; J7620; 97116; 99285-25

== ENCOUNTER 2017-01-02 15:47 | Emergency (ER) | payer OTHER ==
[~2017-01-02] VITALS: Ht 165.1 cm; Wt 119.3 kg
[~2017-01-02 15:47] MED LIST changes: -DICL1PAT4 TD; +FLECTOR1 EACH TD; -WARF10TA PO; +WARF10TA45 PO
[2017-01-02] MEDS ORDERED: PROCHLORPERAZINE 10 MG/2 ML VIAL. IV ONE (17:00)
--- NOTE | 2017-01-02 17:05 | ED.ADGEN ---
Past Medical History Past Medical History: Asthma, COPD, Diabetes-Type II, High Cholesterol, Hypertension, Migraines, Other Additional Past Medical Histor: sleep apnea; PE, chronic abdominal pain Past Surgical History: Appendectomy, Cholecystectomy, Colectomy, Hysterectomy Additional Past Surgical Histo: breast biopsies; bx cataracts; bx shoulders; umbilical hernia Alcohol Use: None Drug Use: None Adult General Chief Complaint Chief Complaint: HEADACHE HPI HPI Patient is a 66 year old woman, history of type 2 diabetes mellitus, hypertension, hyperlipidemia, and obesity, PE on Coumadin, who presents the emergency department with a complaint of headache that has been persistent over the past 8 months. Patient states the headache waxes and wanes but has been essentially persistent located in the front of her head for the past 8 months. Not associated with vision changes, weakness, numbness, tingling, sometimes associated with nausea. No vomiting, no chest pain, no shortness of breath, denies any injuries that preceded the development of headache. Patient was seen several months ago in October, for the headache, received imaging and referral to neurology but states that she has been unable to make her way to the office for an appointment due to difficulty arranging transportation. Patient denies any drugs, alcohol or cigarettes, she states that over the past month or so she has become unsteady on her feet, sometimes feeling as though she is following to the left or to the right, and this causes her to trip and to need the wall for steadiness. She denies any focal weakness as stated. No urinary complaints. Review of Systems Review of Systems Constitutional: Denies fever or chills. [] Eyes: Denies change in visual acuity. [] HENT: Denies nasal congestion or sore throat. [] Respiratory: Denies cough or shortness of breath. [] Cardiovascular: Denies chest pain or edema. [] GI: Denies abdominal pain, nausea, vomiting, bloody stools or diarrhea. [] : Denies dysuria. [] Musculoskeletal: Denies back pain or joint pain. [] Integument: Denies rash. [] Neurologic: Frontal headache that radiates up to the top of her head, no weakness, numbness or tingling. Endocrine: Denies polyuria or polydipsia. [] Lymphatic: Denies swollen glands. [] Psychiatric: Denies depression or anxiety. [] Current Medications Current Medications Current Medications Medications (Trade) Dose Ordered Sig/Irish Start Time Stop Time Status Last Admin Dose Admin Acetaminophen/ Butalbital/ Caffeine (Fioricet) 1 tab 1X ONCE 01/02/17 19:15 01/02/17 19:16 DC 01/02/17 19:15 1 TAB Diphenhydramine HCl (Benadryl) 25 mg 1X ONCE 01/02/17 19:00 01/02/17 19:01 DC 01/02/17 18:45 25 MG Ketorolac Tromethamine (Toradol) 10 mg 1X ONCE 01/02/17 19:00 01/02/17 19:01 DC 01/02/17 18:45 10 MG Prochlorperazine Edisylate (Compazine) 10 mg 1X ONCE 01/02/17 17:00 01/02/17 17:03 DC 01/02/17 17:18 10 MG Allergies Allergies Allergies Coded Allergies Type Severity Reaction Last Updated Verified Penicillins Allergy Intermediate itching, dry mouth, tongue swells 12/16/15 Yes Sulfa (Sulfonamide Antibiotics) Allergy Intermediate ITCHING DRY MOUTH, hives/ swelling 12/16/15 Yes fentanyl Allergy Intermediate 12/16/15 Yes hydromorphone HCl Allergy Intermediate MORPHINE OK 12/16/15 Yes methylprednisolone Allergy Intermediate RED MAN SYNDROME 10/11/16 Yes prednisone Allergy Intermediate RED MED SYNDROME 10/11/16 Yes oxycodone HCl Adverse Reaction Intermediate "i FEEL LIKE I HAVE WORMS IN ME" Yes Physical Exam Physical Exam Constitutional: Well developed, well nourished, no acute distress, non-toxic appearance. [] HENT: Normocephalic, atraumatic, bilateral external ears normal, oropharynx moist, no oral exudates, nose normal. [] Eyes: PERRLA, EOMI, conjunctiva normal, no discharge. [] Neck: Normal range of motion, no tenderness, supple, no stridor. [] Cardiovascular:Heart rate regular rhythm, no murmur, S1, S2, no rubs or gallops. [] Lungs & Thorax: Bilateral breath sounds clear to auscultation, no wheezing, rhonchi, rales. No chest or crepitus or tenderness. [] Abdomen: Bowel sounds normal, soft, no tenderness, no rebound, rigidity, no guarding, no masses, no pulsatile masses. [] Skin: Warm, dry, no erythema, no rash. [] Back: No tenderness, no CVA tenderness. [] Extremities: No tenderness, no cyanosis, no clubbing, ROM intact, no edema. Negative Homans sign. [] Neurologic: Alert and oriented X 3, normal motor function, normal sensory function, no focal deficits noted. [] Psychologic: Affect normal, judgement normal, mood normal. [] Current Patient Data Vital Signs Vital Signs Date Time Temp Pulse Resp B/P (MAP) Pulse Ox O2 Delivery O2 Flow Rate FiO2 01/02/17 18:53 88 136/63 (87) 97 Nasal Cannula 2.0 01/02/17 16:23 20 01/02/17 16:01 98.8 98.8 Lab Values Laboratory Tests Test 01/02/17 16:55 01/02/17 18:30 White Blood Count 8.1 x10^3/uL (4.0-11.0) Red Blood Count 4.46 x10^6/uL (3.50-5.40) Hemoglobin 13.1 g/dL (12.0-15.5) Hematocrit 37.6 % (36.0-47.0) Mean Corpuscular Volume 84 fL (79-100) Mean Corpuscular Hemoglobin 29 pg (25-35) Mean Corpuscular Hemoglobin Concent 35 g/dL (31-37) Red Cell Distribution Width 15.1 % (11.5-14.5) H Platelet Count 309 x10^3/uL (140-400) Neutrophils (%) (Auto) 61 % (31-73) Lymphocytes (%) (Auto) 28 % (24-48) Monocytes (%) (Auto) 8 % (0-9) Eosinophils (%) (Auto) 2 % (0-3) Basophils (%) (Auto) 1 % (0-3) Neutrophils # (Auto) 5.0 x10^3uL (1.8-7.7) Lymphocytes # (Auto) 2.3 x10^3/uL (1.0-4.8) Monocytes # (Auto) 0.6 x10^3/uL (0.0-1.1) Eosinophils # (Auto) 0.1 x10^3/uL (0.0-0.7) Basophils # (Auto) 0.1 x10^3/uL (0.0-0.2) Prothrombin Time 17.9 SEC (11.7-14.0) H Prothrombin Time INR 1.6 (0.8-1.1) H Sodium Level 133 mmol/L (136-145) L Potassium Level 3.9 mmol/L (3.5-5.1) Chloride Level 97 mmol/L (98-107) L Carbon Dioxide Level 24 mmol/L (21-32) Anion Gap 12 (6-14) Blood Urea Nitrogen 16 mg/dL (7-20) Creatinine 1.2 mg/dL (0.6-1.0) H Estimated GFR (Cockcroft-Gault) 45.1 BUN/Creatinine Ratio 13 (6-20) Glucose Level 414 mg/dL (70-99) H Calcium Level 8.7 mg/dL (8.5-10.1) Total Bilirubin 0.3 mg/dL (0.2-1.0) Aspartate Amino Transferase (AST) 21 U/L (15-37) Alanine Aminotransferase (ALT) 24 U/L (14-59) Alkaline Phosphatase 121 U/L (46-116) H Troponin I Quantitative < 0.017 ng/mL (0.000-0.055) Total Protein 7.3 g/dL (6.4-8.2) Albumin 3.0 g/dL (3.4-5.0) L Albumin/Globulin Ratio 0.7 (1.0-1.7) L Urine Collection Type U cath Urine Color Yellow Urine Clarity Clear Urine pH 5.5 Urine Specific [place] >=1.030 Urine Protein Negative mg/dL (NEG-TRACE) Urine Glucose (UA) >=1000 mg/dL (NEG) Urine Ketones (Stick) Negative mg/dL (NEG) Urine Blood Negative (NEG) Urine Nitrite Negative (NEG) Urine Bilirubin Negative (NEG) Urine Urobilinogen Dipstick 0.2 mg/dL (0.2 mg/dL) Urine Leukocyte Esterase Negative (NEG) Urine RBC 1-2 /HPF (0-2) Urine WBC 0 /HPF (0-4) Urine Squamous Epithelial Cells Few /LPF Urine Bacteria 0 /HPF (0-FEW) Urine Mucus Slight /LPF Urine Opiates Screen Neg (NEG) Urine Methadone Screen Neg (NEG) Urine Barbiturates Neg (NEG) Urine Phencyclidine Screen Neg (NEG) Urine Amphetamine/Methamphetamine Neg (NEG) Urine Benzodiazepines Screen Neg (NEG) Urine Cocaine Screen Neg (NEG) Urine Cannabinoids Screen Neg (NEG) Urine Ethyl Alcohol Neg (NEG) Laboratory Tests 01/02/17 16:55 Laboratory Tests 01/02/17 16:55 EKG EKG EC: Sinus rhythm, heart rate 93 bpm, left axis deviation, QTC of 443, NE 178, QRS of 90, contour abnormality is noted in the inferior leads, no ST elevations or depressions, abnormal ECG, does not meet STEMI criteria. As interpreted by me. [] Radiology/Procedures Radiology/Procedures [][facility] [address] [place] [address] IMAGING REPORT Signed PATIENT: ELY CARDOZA ACCOUNT: [id number] : 1950 LOCATION: ER AGE: 66 SEX: F EXAM STATUS: REG ER ORD. PHYSICIAN: TOMEKA ESPINOZA DO REASON: Dizziness/ALTM[place] PROCEDURE: CT HEAD WO CONTRAST PROCEDURE CT HEAD WITHOUT CONTRAST. HISTORY SEVERE HEADACHE TODAY, OFF BALANCE TECHNIQUE Noncontrast CT imaging was performed of the head. Exposure: One or more of the following individualized dose reduction techniques were utilized for this exam: 1. Automated exposure control. 2. Adjustment of the mA and/or kV according to patient size. 3. Use of iterative reconstruction technique. COMPARISON 08/13/2017 FINDINGS No acute intracranial hemorrhage is identified. There is no intra-axial mass effect, midline shift, extra-axial fluid collection. Flores-white differentiation of the major vascular territories is preserved. No acute calvarial abnormality is identified. IMPRESSION No acute intracranial abnormality is identified. Electronically signed by: Jarocho Hogan MD (January 02, 2017 17:33:52) DICTATED and SIGNED BY: HODA HOGAN MD DATE: 01/02/17 1733 CC: TOMEKA ESPINOZA DO; PAVITHRA ALVAREZ MD ~ Chest x-ray: One view: Normal cardiac silhouette with straightening of left heart border, normal pulmonary silhouette, bilateral humeral head replacements, no other bony abnormalities identified, no pneumothorax, no infiltrates, no effusions. As interpreted by me. Course & Med Decision Making Course & Med Decision Making Pertinent Labs and Imaging studies reviewed. (See chart for details) Patient complaining of headache 8 months, for which she was previously evaluated, and encouraged to follow up with neurology which she states she has not been able to do at this time due to transportation issues. Patient states that over the past month she is experiencing some difficulty with balance at times. She last used Tylenol this morning for her pain. She is agreeable to receiving evaluation in the ED, as she has had persistent pain, and is complaining of new symptoms. Patient received CT of the head, chest x-ray, laboratory studies, without evidence of concerning findings on imaging, laboratory studies reveal hyperglycemia with a glucose of 414, no significant electrolyte abnormalities identified. Did discuss with patient, she states that she had a large meal before coming to the ED, and did not take her insulin, which she does from time to time. As stated there is no signs of acidosis, patient does have her medications at home. At this time she states her headache is improved after receiving medication in the ED, patient performed an ambulatory trial in the ED without issue. Patient noted to have an INR of 1.6, she states that her last INR was taken on Saturday and at that time was 2.6, patient instructed to contact her primary care provider in the morning for additional guidance on medication. Discussed importance of follow-up with primary care provider and with neurology with patient and daughter at bedside, patient's daughter states that she will be able to take her mother to the appointment, they were given contact information for Dr. Desouza of neurology. Patient discharged home in stable condition with family with clear and detailed return instructions with which she voiced understanding and agreement, and plan as above. Dragon Disclaimer Dragon Disclaimer This electronic medical record was generated, in whole or in part, using a voice recognition dictation system. Departure Impression: Primary Impression: Headache Disposition: HOME, SELF-CARE Condition: IMPROVED TOMEKA ESPINOZA DO January 02, 2017 17:04
[2017-01-02 17:06] LABS: BASO # 0.1 x10^3/uL (0.0-0.2); BASO % 1 % (0-3); EOS % 2 % (0-3); HEMATOCRIT 37.6 % (36.0-47.0); HEMOGLOBIN 13.1 g/dL (12.0-15.5); LYMPH # 2.3 x10^3/uL (1.0-4.8); LYMPH % 28 % (24-48); MEAN CORPUSCULAR HEMOGLOBIN 29 pg (25-35); MEAN CORPUSCULAR HGB CONC 35 g/dL (31-37); MEAN CORPUSCULAR VOLUME 84 fL (79-100); MONO % 8 % (0-9); NEUT % 61 % (31-73); PLATELET COUNT 309 x10^3/uL (140-400); RED BLOOD COUNT 4.46 x10^6/uL (3.50-5.40); RED CELL DISTRIBUTION WIDTH 15.1 % (11.5-14.5); WHITE BLOOD COUNT 8.1 x10^3/uL (4.0-11.0)
[2017-01-02 17:22] LABS: CALCIUM 8.7 mg/dL (8.5-10.1); CREATININE 1.2 mg/dL (0.6-1.0); GFR 45.1; POTASSIUM 3.9 mmol/L (3.5-5.1)
[2017-01-02 17:27] LABS: ALBUMIN/GLOBULIN RATIO 0.7 (1.0-1.7); TOTAL BILIRUBIN 0.3 mg/dL (0.2-1.0); TOTAL PROTEIN 7.3 g/dL (6.4-8.2)
--- NOTE | 2017-01-02 17:35 | RAD ---
PROCEDURE CT HEAD WITHOUT CONTRAST. HISTORY SEVERE HEADACHE TODAY, OFF BALANCE TECHNIQUE Noncontrast CT imaging was performed of the head. Exposure: One or more of the following individualized dose reduction techniques were utilized for this exam: 1. Automated exposure control. 2. Adjustment of the mA and/or kV according to patient size. 3. Use of iterative reconstruction technique. COMPARISON 08/13/2017 FINDINGS No acute intracranial hemorrhage is identified. There is no intra-axial mass effect, midline shift, extra-axial fluid collection. Flores-white differentiation of the major vascular territories is preserved. No acute calvarial abnormality is identified. IMPRESSION No acute intracranial abnormality is identified. Electronically signed by: Jarocho Flores MD (January 02, 2017 17:33:52)
[2017-01-02 18:40] LABS: BILIRUBIN,URINE NEGATIVE (NEG); GLUCOSE,URINE >=1000 mg/dL (NEG); NITRITE,URINE NEGATIVE (NEG); PH,URINE 5.5; PROTEIN,URINE NEGATIVE (NEG-TRACE); UROBILINOGEN,URINE 0.2 mg/dL (0.2 mg/dL)
[2017-01-02 18:44] LABS: BARBITURATES NEG (NEG); BENZODIAZEPINES NEG (NEG); CANNABINOIDS NEG (NEG); COCAINE NEG (NEG); METHADONE NEG (NEG); OPIATES NEG (NEG); PHENCYCLIDINE NEG (NEG)
[2017-01-02 18:46] LABS: BACTERIA,URINE 0 /HPF (0-FEW); SQUAMOUS EPITHELIAL CELL,UR FEW /LPF; WBC,URINE 0 /HPF (0-4)
[2017-01-02] MEDS ORDERED: diphenhydrAMINE 50 MG/ML VIAL IVP ONE (19:00)
[2017-01-02] MEDS ORDERED: KETOROLAC 15 MG/ML VIAL. IV ONE (19:00)
[2017-01-02] MEDS ORDERED: BUTALB/APAP/CAFEIN 50/325/40MG TABLET. PO ONE (19:15)
[2017-01-02 19:23] VITALS: BP 120/59
[2017-01-02 19:24] LABS: INR 1.6 (0.8-1.1); PROTHROMBIN TIME PATIENT 17.9 SEC (11.7-14.0)
--- NOTE | 2017-01-03 06:21 | EKG ---
[facility] [address] [place] [address] Test Date: 2017-01-02 Test Time: 16:57:22 Pat Name: ELY CARDOZA Department: Room: Gender: F Associate Technician: : 1950 Requested By: TOMEKA ESPINOZA Order Number: [id number] Reading MD: Titus Jose Measurements Intervals [place] Rate: 93 P: 45 [place]: 178 QRS: -17 QRSD: 90 T: 44 QT: 354 QTc: 443 Interpretive Statements SINUS RHYTHM Electronically Signed On 01-07-2017 14:02:33 CDT by Titus Jose
--- NOTE | 2017-01-03 07:29 | RAD ---
Portable chest, 01/02/2017: History: Dizziness Comparison is made to a study from 11/08/2016. The heart size and pulmonary vascularity are normal. An unchanged nodule in the left midlung is probably a granuloma. No acute infiltrates are seen. There is no evidence of pleural fluid. Bilateral shoulder prostheses are in place. IMPRESSION: No acute cardiopulmonary abnormality is detected.
== END 2017-01-02 20:35 | disposition home or self-care (01) ==
LOC: ER 15:47
DX: R51 Headache (principal); E11.65 Type 2 diabetes mellitus with hyperglycemia; I10 Essential (primary) hypertension; E78.5 Hyperlipidemia, unspecified; E66.9 Obesity, unspecified; J45.909 Unspecified asthma, uncomplicated; J44.9 Chronic obstructive pulmonary disease, unspecified; E78.00 Pure hypercholesterolemia, unspecified; G43.909 Migraine, unspecified, not intractable, without status migrainosus; G47.30 Sleep apnea, unspecified; G89.29 Other chronic pain; Z90.49 Acquired absence of other specified parts of digestive tract; Z90.710 Acquired absence of both cervix and uterus; Z98.49 Cataract extraction status, unspecified eye; Z88.2 Allergy status to sulfonamides; Z88.0 Allergy status to penicillin; Z88.4 Allergy status to anesthetic agent; Z88.8 Allergy status to other drugs, medicaments and biological substances; Z88.5 Allergy status to narcotic agent; Z68.41 Body mass index [BMI] 40.0-44.9, adult; Z86.711 Personal history of pulmonary embolism; Z79.01 Long term (current) use of anticoagulants
CPT/HCPCS: 36415; 70450; 71010; 80053; 80305; 80320; 81001; 84484; 85027; 85610; 93005; 96374; 96375; 99285; J0780; J1200; J1885; G0481

== ENCOUNTER 2017-01-07 17:46 | Emergency (ER) | payer OTHER ==
[~2017-01-07] VITALS: Ht 165.1 cm; Wt 119.3 kg
[2017-01-07] MEDS ORDERED: BUTALB/APAP/CAFEIN 50/325/40MG TABLET. PO STA (18:21)
[2017-01-07] MEDS ORDERED: METOCLOPRAMIDE HCL 10 MG/2 ML VIAL. IV ONE (18:30)
[2017-01-07] MEDS ORDERED: KETOROLAC 15 MG/ML VIAL. IV ONE (18:30)
[2017-01-07] MEDS ORDERED: diphenhydrAMINE 50 MG/ML VIAL IVP ONE (18:30)
--- NOTE | 2017-01-07 19:02 | PHYS DOC ---
Past Medical History Past Medical History: Asthma, COPD, Diabetes-Type II, High Cholesterol, Hypertension, Migraines, Other Additional Past Medical Histor: sleep apnea; PE, chronic abdominal pain Past Surgical History: Appendectomy, Cholecystectomy, Colectomy, Hysterectomy Additional Past Surgical Histo: breast biopsies; bx cataracts; bx shoulders; umbilical hernia Alcohol Use: None Drug Use: None Adult General Chief Complaint Chief Complaint: HEADACHE HPI HPI Patient is a 66 year old female who presents with continued headache for the past 8 months or so. States she was seen here a few days ago for this (01/02/2017 ). She improved when seen that day without complete resolution and her headache is now returned to severe. She notes follow up appointment set with neurology, but came here seeking. During prior visits, she had workup including labs and head CT that were unremarkable. Review of Systems Review of Systems Constitutional: Denies fever or chills [] Eyes: Denies change in visual acuity, redness, or eye pain [] HENT: Denies nasal congestion or sore throat [] Respiratory: Denies cough or shortness of breath [] Cardiovascular: No additional information not addressed in HPI [] GI: Denies abdominal pain, nausea, vomiting, bloody stools or diarrhea [] : Denies dysuria or hematuria [] Musculoskeletal: Denies back pain or joint pain [] Integument: Denies rash or skin lesions [] Neurologic: Denies headache, focal weakness or sensory changes [] Endocrine: Denies polyuria or polydipsia [] Current Medications Current Medications Current Medications Medications (Trade) Dose Ordered Sig/Irish Start Time Stop Time Status Last Admin Dose Admin Acetaminophen/ Butalbital/ Caffeine (Fioricet) 1 tab 1X STAT 01/07/17 18:21 01/07/17 18:27 DC 01/07/17 19:19 1 TAB Diphenhydramine HCl (Benadryl) 25 mg 1X ONCE 01/07/17 18:30 01/07/17 18:31 DC 01/07/17 19:20 25 MG Ketorolac Tromethamine (Toradol) 10 mg 1X ONCE 01/07/17 18:30 01/07/17 18:31 DC 01/07/17 19:20 10 MG Metoclopramide HCl (Reglan) 10 mg 1X ONCE 01/07/17 18:30 01/07/17 18:31 DC 01/07/17 19:19 10 MG Allergies Allergies Allergies Coded Allergies Type Severity Reaction Last Updated Verified Penicillins Allergy Intermediate itching, dry mouth, tongue swells 12/16/15 Yes Sulfa (Sulfonamide Antibiotics) Allergy Intermediate ITCHING DRY MOUTH, hives/ swelling 12/16/15 Yes fentanyl Allergy Intermediate 12/16/15 Yes hydromorphone HCl Allergy Intermediate MORPHINE OK 12/16/15 Yes methylprednisolone Allergy Intermediate RED MAN SYNDROME 10/11/16 Yes prednisone Allergy Intermediate RED MED SYNDROME 10/11/16 Yes oxycodone HCl Adverse Reaction Intermediate "i FEEL LIKE I HAVE WORMS IN ME" Yes Physical Exam Physical Exam Constitutional: Well developed, well nourished, no acute distress, non-toxic appearance. [] HENT: Normocephalic, atraumatic, bilateral external ears normal, oropharynx moist, no oral exudates, nose normal. [] Eyes: PERRLA, EOMI, conjunctiva normal, no discharge. [] Neck: Normal range of motion, supple. [] Cardiovascular:Heart rate regular rhythm [] Lungs & Thorax: Bilateral breath sounds clear to auscultation [] Abdomen: Bowel sounds normal, soft, no tenderness. [] Skin: Warm, dry, no erythema, no rash. [] Back: Normal range of motion. [] Extremities: No tenderness, ROM intact, no edema. [] Neurologic: Alert and oriented X 3, normal motor function, normal sensory function, no focal deficits noted, cranial nerves II through XII intact. [] Psychologic: Affect normal, judgement normal, mood normal. [] Current Patient Data Vital Signs Vital Signs Date Time Temp Pulse Resp B/P (MAP) Pulse Ox O2 Delivery O2 Flow Rate FiO2 01/07/17 20:26 82 19 149/67 (94) 93 Room Air 01/07/17 18:05 98.9 98.9 Course & Med Decision Making Course & Med Decision Making Pertinent Labs and Imaging studies reviewed. (See chart for details) Has some improvement in headache without complete resolution. Encouraged her to follow-up with neurology clinic and her primary care doctor. Return precautions given. She understands and agrees with plan. Dragon Disclaimer Dragon Disclaimer This electronic medical record was generated, in whole or in part, using a voice recognition dictation system. Departure Departure Impression: Primary Impression: Headache Disposition: HOME, SELF-CARE Condition: STABLE Referrals: PAVITHRA ALVAREZ MD (PCP) Patient Instructions: General Headache Without Cause, [id number] Additional Instructions: Follow-up with your primary care doctor and neurology clinic. Please call for appointment. Return for any concerns. Problem Qualifiers Primary Impression: Headache Headache type: unspecified Headache chronicity pattern: chronic headache Kenan CURRY MD January 07, 2017 19:02
[2017-01-07 20:26] VITALS: BP 149/67
== END 2017-01-07 20:34 | disposition home or self-care (01) ==
LOC: ER 17:46
DX: G89.29 Other chronic pain (principal); R51 Headache; J44.9 Chronic obstructive pulmonary disease, unspecified; E11.9 Type 2 diabetes mellitus without complications; E78.00 Pure hypercholesterolemia, unspecified; I10 Essential (primary) hypertension; G47.30 Sleep apnea, unspecified; G43.909 Migraine, unspecified, not intractable, without status migrainosus; Z86.711 Personal history of pulmonary embolism; Z88.0 Allergy status to penicillin; Z88.2 Allergy status to sulfonamides; Z88.4 Allergy status to anesthetic agent; Z88.5 Allergy status to narcotic agent; Z88.8 Allergy status to other drugs, medicaments and biological substances; Z90.49 Acquired absence of other specified parts of digestive tract; Z90.710 Acquired absence of both cervix and uterus
CPT/HCPCS: 96374; 96375; 99284; J1200; J1885; J2765

== ENCOUNTER 2017-02-01 19:46 | Inpatient (IN) | payer BC, OTHER ==
[~2017-02-01] VITALS: Ht 165.1 cm; Wt 118.0 kg
[~2017-02-01 19:46] MED LIST changes: -EZET1TAB18 PO; +EZET1TAB26 PO; +EZET1TAB35 PO; -EZET1TAB5 PO; -HYDR-2666 PO; -HYDR-2672 PO; +HYDR-2758 PO; +HYDR-2766 PO; -LUBI8CAP3 PO; +LUBI8CAP4 PO
[2017-02-01] MEDS ORDERED: IV NORMAL SALINE 1000ML BAG 1,000 ML IV SCH (19:49)
[2017-02-01] MEDS ORDERED: IPRATRPIUM/ALBUTEROL 0.5/2.5MG 3 ML NEBU. NEB ONE ×2 (20:00)
[2017-02-01] MEDS ORDERED: methylPREDNISolone SOD SUCC PF 125 MG/2 ML VIAL. IV ONE (20:00)
[2017-02-01] MEDS ORDERED: diphenhydrAMINE 50 MG/ML VIAL ONE (20:02)
[2017-02-01] MEDS ORDERED: methylPREDNISolone SOD SUCC PF 125 MG/2 ML VIAL. ONE (20:02)
[2017-02-01] MEDS ORDERED: diphenhydrAMINE 50 MG/ML VIAL IVP ONE (20:30)
[2017-02-01 20:32] LABS: BASO # 0.1 x10^3/uL (0.0-0.2); BASO % 0 % (0-3); EOS % 2 % (0-3); HEMATOCRIT 39.2 % (36.0-47.0); HEMOGLOBIN 13.5 g/dL (12.0-15.5); LYMPH # 7.8 x10^3/uL (1.0-4.8); LYMPH % 52 % (24-48); MEAN CORPUSCULAR HEMOGLOBIN 29 pg (25-35); MEAN CORPUSCULAR HGB CONC 34 g/dL (31-37); MEAN CORPUSCULAR VOLUME 85 fL (79-100); MONO % 6 % (0-9); NEUT % 39 % (31-73); PLATELET COUNT 385 x10^3/uL (140-400); RED BLOOD COUNT 4.64 x10^6/uL (3.50-5.40); RED CELL DISTRIBUTION WIDTH 15.4 % (11.5-14.5); WHITE BLOOD COUNT 14.9 x10^3/uL (4.0-11.0)
[2017-02-01 20:39] LABS: CALCIUM 9.1 mg/dL (8.5-10.1); CREATININE 1.1 mg/dL (0.6-1.0); GFR 49.8; POTASSIUM 3.4 mmol/L (3.5-5.1)
[2017-02-01 20:44] LABS: ALBUMIN 3.3 g/dL (3.4-5.0); ALBUMIN/GLOBULIN RATIO 0.8 (1.0-1.7); TOTAL BILIRUBIN 0.2 mg/dL (0.2-1.0); TOTAL PROTEIN 7.2 g/dL (6.4-8.2)
[2017-02-01 20:52] LABS: CKMB MASS < 0.5 ng/mL (0.0-3.6); CREATINE KINASE 70 U/L (26-192)
[2017-02-01 21:09] LABS: BILIRUBIN,URINE NEGATIVE (NEG); GLUCOSE,URINE >=1000 mg/dL (NEG); NITRITE,URINE NEGATIVE (NEG); PH,URINE 6.5; PROTEIN,URINE NEGATIVE (NEG-TRACE); UROBILINOGEN,URINE 0.2 mg/dL (0.2 mg/dL)
[2017-02-01 21:35] LABS: BACTERIA,URINE 0 /HPF (0-FEW); RBC,URINE 0 /HPF (0-2); SQUAMOUS EPITHELIAL CELL,UR MOD /LPF
[2017-02-01 23:15] VITALS: BP 148/66
[2017-02-01 23:30] VITALS: BP 125/56
[2017-02-02] VITALS (15 sets, daily range): BP systolic 118–174; BP diastolic 52–78
[2017-02-02] MEDS ORDERED: INSU100V13 SQ (03:38)
--- NOTE | 2017-02-02 08:53 | RAD ---
EXAM: Chest one view. HISTORY: Dyspnea. COMPARISON: 01/02/2017. FINDINGS: A frontal view of the chest is obtained. There are no confluent infiltrates. There is no pneumothorax or pleural effusion. The heart is not enlarged. Bilateral total shoulder arthroplasties are noted. There is a calcified granuloma on the left. IMPRESSION: 1. No confluent infiltrates.
[2017-02-02] MEDS ORDERED: LISINOPRIL 40 MG TABLET. PO SCH (10:00)
[2017-02-02] MEDS ORDERED: LISINOPRIL 20 MG TABLET PO SCH (10:13)
[2017-02-02] MEDS ORDERED: DEXTROSE 50% 25 GM / 50ML DISP.SYRIN. IV PRN (10:15)
[2017-02-02] MEDS ORDERED: diphenhydrAMINE HCL 25 MG CAPSULE PO PRN (10:15)
[2017-02-02] MEDS ORDERED: ONDANSETRON ODT 4 MG TAB.RAPDIS. PO PRN (10:45)
[2017-02-02] MEDS ORDERED: MECLIZINE HCL 12.5 MG TABLET. PO PRN (10:45)
[2017-02-02] MEDS ORDERED: guaiFENesin DM 200MG/20MG 10 ML SYRUP PO PRN (11:00)
[2017-02-02] MEDS ORDERED: INSULIN DETEMIR 300 UNITS/3 ML INSULN.PEN. SQ SCH ×2 (11:00→21:00)
[2017-02-02] MEDS: SIMVASTATIN 10 MG TABLET PO SCH (11:28)
[2017-02-02] MEDS: DULoxetine HCL 30 MG CAPSULE.DR PO SCH (11:28)
[2017-02-02] MEDS: EZETIMIBE 10 MG TABLET. PO SCH (11:28)
--- NOTE | 2017-02-02 11:28 | HP ---
ADMIT DATE: 02/02/2017 ADMISSION DIAGNOSIS: Acute asthma exacerbation. HISTORY OF PRESENT ILLNESS: This is a 66-year-old white female with longstanding asthma who was inside her house yesterday relatively inactive all day. Her house felt hot to her. She went upstairs and the climb up the stairs caused her to feel short of breath. She felt like her throat had tightened up, although she did not have any allergic signs or symptoms. She did not have any tongue swelling or increased mucus production, rash or other allergy symptoms. She did not have any fever, chills or cold symptoms. She used her home nebulizer treatment, but does not have any home oxygen. She felt like she just could not catch her breath, came to the Emergency Room and was quite panicky there. She was seen and evaluated in the Emergency Room, received racemic epinephrine, but her arterial blood gas and other studies did not show that she required intubation. She was subsequently admitted in the Intensive Care Unit overnight. After about 2 hours of CPAP, she fell asleep and slept well all night and this morning feels like she is breathing normally. PAST MEDICAL HISTORY: Significant for asthma, lung disease, hypertension, pulmonary embolisms, nausea, hiatal hernia, irritable bowel, osteoarthritis, obesity, diabetes, depression, anxiety. PAST SURGICAL HISTORY: Include bilateral cataract extractions, tonsillectomy, adenoidectomy, multiple abdominal surgeries including hernia repairs and bowel complications. She had an appendectomy, cholecystectomy, breast biopsy, hysterectomy, bilateral shoulder surgeries and replacement. FAMILY HISTORY: Diabetes, lung cancer, hypertension, heart disease, asthma, allergy. SOCIAL HISTORY: She is . She does not smoke. She does not drink. ALLERGIES: SHE HAS ALLERGIES TO PENICILLIN, SULFA, FENTANYL, HYDROMORPHONE, METHYLPREDNISOLONE, OXYCODONE AND PREDNISONE, BUT SHE DID TOLERATE STEROIDS AFTER BEING PREMEDICATED WITH BENADRYL. HOME MEDICATIONS: Include amlodipine 5 mg daily, cyclobenzaprine 5 mg t.i.d., dicyclomine 20 mg t.i.d., Benadryl 25 mg q. 4 hours p.r.n., Cymbalta 90 mg daily, Vytorin 10/10 one at bedtime, Advair 250/50 one puff b.i.d., NovoLog 13 units t.i.d. with meals, Levemir 44 units each morning, 22 units each evening; Xopenex HFA 1 puff b.i.d. p.r.n. shortness of breath, lisinopril 20 mg daily, Amitiza 24 mcg b.i.d. with meals, meclizine 25 mg t.i.d., metoprolol 25 mg daily, extended release succinate, Singulair 10 mg at bedtime, Zofran 4 mg b.i.d. p.r.n., Protonix 40 mg daily, Spiriva 1 inhalation daily, warfarin 10 mg daily, Robitussin-DM 10 mL q. 4 hours p.r.n. cough, DuoNeb nebulized q.i.d. REVIEW OF SYSTEMS: CONSTITUTIONAL: Negative for fever and chills. HEENT: Negative for cold or allergy symptoms. CARDIAC: Negative for chest pain, palpitations. PULMONARY: Positive as above. GASTROINTESTINAL: No recent nausea, vomiting or change in bowel habits. GENITOURINARY: No dysuria. MUSCULOSKELETAL: No acute synovitis or joint pain. SKIN: No bleeding or bruising. HEMATOLOGIC: No bleeding or bruising. She has had her INRs monitored routinely with routine dose adjustments. NEUROLOGIC: No headaches or seizures. PSYCHIATRIC: She does not have any reasons to feel particularly anxious. She has not been depressed. PHYSICAL EXAMINATION: VITAL SIGNS: Afebrile since admission. Heart rate has been normal. Blood pressure has been a little elevated, but she has not had any routine meds as she has been n.p.o. Her pulse ox is in upper 90s on 3 liters nasal cannula. GENERAL: She is in no acute distress. HEENT: Unremarkable. There are no allergic features. There is no congestion. Conjunctivae are clear. Glasses are on. Mucous membranes are moist. NECK: Supple. HEART: Regular rate and rhythm, no murmurs heard. LUNGS: Clear to auscultation in all mei. There is no stridor. There are no intercostal retractions. ABDOMEN: Obese, soft. Multiple old incision scars. Bowel sounds are present. EXTREMITIES: Show no clubbing, cyanosis or edema. No acute bony pain on palpation. No significant bruises are noted or skin breakdown is noted. 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 NEUROLOGIC: She is alert and oriented. LABORATORY DATA: Showed a white count elevated at 14.9, hemoglobin 13.5, hematocrit of 39.2, platelets at 385. D-dimer is 0.32, which is normal. Chemistry shows sodium 134, potassium 3.4, chloride 95, creatinine 1.1, glucose was elevated at 403, alkaline phosphatase was 137, her albumin is 3.3. Cardiac enzymes are normal. BNP is 38. Urinalysis greater than 1000 glucose. IMAGING TESTS: Show no significant abnormalities. Bilateral total shoulder arthroplasties were noted. Her blood gases not in the chart, but per ER physician was not significantly abnormal. ASSESSMENT: 1. Acute asthma exacerbation. 2. Acute anxiety attack. 3. Type 2 diabetes, currently uncontrolled. 4. Chronic obstructive pulmonary disease. 5. Hypertension. 6. History of pulmonary embolism, chronically anticoagulated. INR was not recorded. 7. Multiple abdominal surgeries for hernia repairs. 8. Osteoarthritis with joint replacements. No acute issues. PLAN: She will be transferred from the intensive care unit to the medical bed. Home meds will be resumed. Her glucose will be monitored. Her metoprolol will be held as it can have some negative respiratory effects. W Bianca ALVAREZ MD DR: BIENVENIDO/alyce JOB#: [id number] / [id number]
[2017-02-02] MEDS: LUBIPROSTONE 8 MCG CAPSULE PO SCH ×2 (11:29→16:55)
[2017-02-02] MEDS: amLODIPine BESYLATE 5 MG TABLET PO SCH (11:29)
[2017-02-02] MEDS: DICYCLOMINE HCL 10 MG CAPSULE PO SCH ×3 (11:29→20:50)
[2017-02-02] MEDS: CYCLOBENZAPRINE 10 MG TABLET. PO SCH ×3 (11:30→20:50)
[2017-02-02] MEDS: BUDESONIDE 0.5 MG/2 ML NEBU. NEB SCH ×2 (11:30→20:00)
[2017-02-02] MEDS: INSULIN DETEMIR 300 UNITS/3 ML INSULN.PEN. SQ SCH (11:49)
[2017-02-02] MEDS ORDERED: NON FORMULARY ITEM ([Ipratropium/Albuterol Sulfate] (Duoneb) 3 ML) NEB SCH (12:00)
[2017-02-02] MEDS: IPRATRPIUM/ALBUTEROL 0.5/2.5MG 3 ML NEBU. NEB SCH ×3 (12:00→20:00)
[2017-02-02 12:01] LABS: PROTHROMBIN TIME PATIENT 21.2 SEC (11.7-14.0)
--- NOTE | 2017-02-02 12:12 | EKG ---
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
[2017-02-02] MEDS: INSULIN ASPART 300 UNITS/3 ML INSULN.PEN SQ SCH ×4 (12:57→17:04)
[2017-02-02] MEDS ORDERED: NON FORMULARY ITEM (Fluticasone/Salmeterol (Advair 250-50 Diskus) 1 EACH) IH SCH (16:00)
--- NOTE | 2017-02-02 16:42 | PHYS DOC ---
Past Medical History Past Medical History: Asthma, COPD, Diabetes-Type II, High Cholesterol, Hypertension, Migraines, Other Additional Past Medical Histor: sleep apnea; PE, chronic abdominal pain Past Surgical History: Appendectomy, Cholecystectomy, Colectomy, Hysterectomy Additional Past Surgical Histo: breast biopsies; bx cataracts; bx shoulders; umbilical hernia Alcohol Use: None Drug Use: None Adult General Chief Complaint Chief Complaint: SHORTNESS OF BREATH HPI HPI Patient is a 66 year old female who presents with severe dyspnea. Pt arrived by EMS in severe respiratory distress and some of hx is taken from EMS because pt unable to talk for long periods of time. Pt SOA all day and worse just prior to arrival. EMS noted severe respiratory distress and started Nebulizer treatment but unable to establish IV access. Pt seems to become more dyspenic and they gave IM EPI enroute to ER. Pt states SOA at home and not improved with home Nebs and inhalers. "Pt states I feel tired out, I want to be intubated" Review of Systems Review of Systems Constitutional: Denies fever or chills Eyes: Denies change in visual acuity, redness, or eye pain HENT: Denies nasal congestion or sore throat Respiratory: yes, cough and SOA Cardiovascular: No additional information not addressed in HPI GI: Denies abdominal pain, nausea, vomiting, bloody stools or diarrhea : Denies dysuria or hematuria Musculoskeletal: Denies back pain or joint pain Integument: Denies rash or skin lesions Neurologic: Denies headache, focal weakness or sensory changes Endocrine: Denies polyuria or polydipsia Current Medications Current Medications Current Medications Medications (Trade) Dose Ordered Sig/Irish Start Time Stop Time Status Last Admin Dose Admin Albuterol/ Ipratropium (Duoneb) 3 ml 1X ONCE 02/01/17 20:00 02/01/17 20:28 DC 02/01/17 20:58 3 ML Diphenhydramine HCl (Benadryl) 50 mg 1X ONCE 02/01/17 20:30 02/01/17 20:31 DC 02/01/17 20:04 50 MG Levofloxacin/ Dextrose 150 ml @ 100 mls/hr 1X ONCE 02/01/17 20:30 02/01/17 21:59 DC 02/01/17 20:47 100 MLS/HR Methylprednisolone Sodium Succinate (SOLU-Medrol 125MG VIAL) 125 mg 1X ONCE 02/01/17 20:00 02/01/17 20:28 DC 02/01/17 20:04 125 MG Sodium Chloride 1,000 ml @ 1,000 mls/hr Q1H 02/01/17 19:49 02/01/17 20:48 DC 02/01/17 20:25 1,000 MLS/HR Allergies Allergies Allergies Coded Allergies Type Severity Reaction Last Updated Verified Penicillins Allergy Intermediate itching, dry mouth, tongue swells 12/16/15 Yes Sulfa (Sulfonamide Antibiotics) Allergy Intermediate ITCHING DRY MOUTH, hives/ swelling 12/16/15 Yes fentanyl Allergy Intermediate 12/16/15 Yes hydromorphone HCl Allergy Intermediate MORPHINE OK 12/16/15 Yes methylprednisolone Allergy Intermediate RED MAN SYNDROME 10/11/16 Yes prednisone Allergy Intermediate RED MED SYNDROME 10/11/16 Yes oxycodone HCl Adverse Reaction Intermediate "i FEEL LIKE I HAVE WORMS IN ME" Yes Physical Exam Physical Exam Constitutional: Well developed, well nourished, appears anxious and moderated distress because SOA. At times pt is able to speak a full sentence without difficulty then becomes anxious and tachypnic HENT: Normocephalic, atraumatic, bilateral external ears normal, oropharynx moist, no oral exudates, nose normal. Eyes: PERRL, EOMI, conjunctiva normal, no discharge. Neck: Normal range of motion, no tenderness, supple, NO STRIDOR BUT SOME UPPER AIRWAY WHEEZE NOTED ON EXPIRATION Cardiovascular:Heart rate regular rhythm, no murmur Lungs & Thorax: Bilateral EXPIRATORY WHEEZE AND DIMINISHED INSPIRATORY SOUNDS Abdomen: Bowel sounds normal, soft, no tenderness, no masses, no pulsatile masses. Skin: Warm, dry, no erythema, no rash. Back: No tenderness, no CVA tenderness. Extremities: No tenderness, no cyanosis, no clubbing, ROM intact, no edema. Neurologic: Alert and oriented X 3, normal motor function, normal sensory function, no focal deficits noted. Psychologic: ANXIOUS Current Patient Data Vital Signs Vital Signs Date Time Temp Pulse Resp B/P (MAP) Pulse Ox O2 Delivery O2 Flow Rate FiO2 02/01/17 21:45 94 13 172/79 (110) 97 BiPAP/CPAP 02/01/17 20:16 15.0 02/01/17 19:50 100.0 100.0 Lab Values Laboratory Tests Test 02/01/17 20:02 02/01/17 21:02 White Blood Count 14.9 x10^3/uL (4.0-11.0) H Red Blood Count 4.64 x10^6/uL (3.50-5.40) Hemoglobin 13.5 g/dL (12.0-15.5) Hematocrit 39.2 % (36.0-47.0) Mean Corpuscular Volume 85 fL (79-100) Mean Corpuscular Hemoglobin 29 pg (25-35) Mean Corpuscular Hemoglobin Concent 34 g/dL (31-37) Red Cell Distribution Width 15.4 % (11.5-14.5) H Platelet Count 385 x10^3/uL (140-400) Neutrophils (%) (Auto) 39 % (31-73) Lymphocytes (%) (Auto) 52 % (24-48) H Monocytes (%) (Auto) 6 % (0-9) Eosinophils (%) (Auto) 2 % (0-3) Basophils (%) (Auto) 0 % (0-3) Neutrophils # (Auto) 5.8 x10^3uL (1.8-7.7) Lymphocytes # (Auto) 7.8 x10^3/uL (1.0-4.8) H Monocytes # (Auto) 0.9 x10^3/uL (0.0-1.1) Eosinophils # (Auto) 0.3 x10^3/uL (0.0-0.7) Basophils # (Auto) 0.1 x10^3/uL (0.0-0.2) D-Dimer (Elaina) 0.32 ug/mlFEU (0.00-0.50) Sodium Level 134 mmol/L (136-145) L Potassium Level 3.4 mmol/L (3.5-5.1) L Chloride Level 95 mmol/L (98-107) L Carbon Dioxide Level 27 mmol/L (21-32) Anion Gap 12 (6-14) Blood Urea Nitrogen 14 mg/dL (7-20) Creatinine 1.1 mg/dL (0.6-1.0) H Estimated GFR (Cockcroft-Gault) 49.8 BUN/Creatinine Ratio 13 (6-20) Glucose Level 403 mg/dL (70-99) H Calcium Level 9.1 mg/dL (8.5-10.1) Total Bilirubin 0.2 mg/dL (0.2-1.0) Aspartate Amino Transferase (AST) 17 U/L (15-37) Alanine Aminotransferase (ALT) 20 U/L (14-59) Alkaline Phosphatase 137 U/L (46-116) H Creatine Kinase 70 U/L (26-192) Creatine Kinase MB (Mass) < 0.5 ng/mL (0.0-3.6) Creatine Kinase MB Relative Index % (0-4) Troponin I Quantitative < 0.017 ng/mL (0.000-0.055) NJ-Uxj-J-Type Natriuretic Peptide 38 pg/mL (0-124) Total Protein 7.2 g/dL (6.4-8.2) Albumin 3.3 g/dL (3.4-5.0) L Albumin/Globulin Ratio 0.8 (1.0-1.7) L Urine Collection Type Unknown Urine Color Yellow Urine Clarity Clear Urine pH 6.5 Urine Specific Dixie 1.015 Urine Protein Negative mg/dL (NEG-TRACE) Urine Glucose (UA) >=1000 mg/dL (NEG) Urine Ketones (Stick) Negative mg/dL (NEG) Urine Blood Negative (NEG) Urine Nitrite Negative (NEG) Urine Bilirubin Negative (NEG) Urine Urobilinogen Dipstick 0.2 mg/dL (0.2 mg/dL) Urine Leukocyte Esterase Negative (NEG) Urine RBC 0 /HPF (0-2) Urine WBC 1-4 /HPF (0-4) Urine Squamous Epithelial Cells Mod /LPF Urine Transitional Epithelial Cells Few /LPF Urine Renal Epithelial Cells Few /LPF Urine Bacteria 0 /HPF (0-FEW) Laboratory Tests 02/01/17 20:02 Laboratory Tests 02/01/17 20:02 EKG EKG EKG--SINUS RHYTHM NO STEMI, NONSPECIFIC CHANGES[] Radiology/Procedures Radiology/Procedures PATIENT: ELY CARDOZA ACCOUNT: [id number] : 1950 LOCATION: [address] [place] [address] AGE: 66 SEX: F EXAM STATUS: ADM IN ORD. PHYSICIAN: SUNG NGUYEN MD REASON: dyspnea PROCEDURE: PORTABLE CHEST 1V EXAM: Chest one view. HISTORY: Dyspnea. COMPARISON: 01/02/2017. FINDINGS: A frontal view of the chest is obtained. There are no confluent infiltrates. There is no pneumothorax or pleural effusion. The heart is not enlarged. Bilateral total shoulder arthroplasties are noted. There is a calcified granuloma on the left. IMPRESSION: 1. No confluent infiltrates. DICTATED and SIGNED BY: ZACH MENDEZ MD DATE: 02/02/17 0832 CC: SUNG NGUYEN MD; BRAIN ALVAREZ[] Impressions: SEVERE ASTHMA EXACERBATION ACUTE RESPIRATORY DISTRESS ANXIETY Course & Med Decision Making Course & Med Decision Making Pertinent Labs and Imaging studies reviewed. (See chart for details) PT very anxious and at times hyperventilation /stacking breaths then hold breath and appears to pass out. During episode lasting 5 seconds pt on monitor and not change in rhythm or oxygenation. Pt then wakes up with a sternal rub. Then pt keeps stating that she wants to be intubated. Discussed with pt that since ER Neb, with Duoneb and Racemic epi her lung sounds have improved and pt able to speak longer sentences. Pt agreed to try CPAP in ER which she tolerated well. There were still times she would become anxious and "pass out for 5 seconds" without worsening of her condition ?etiology--after she does this pt keeps asking me to intubate her. As pt further observed in ER less episodes. Pt states allergic to Solumedrol but can take with IV Benerdryl prior to med. That was given and pt tolerated well. An ABG was obtained by myself while respiratory therapy was getting the CPAP machine. ABG----normal PH P02 168, Pco2 was normal as well as bicarb. Pt was improved in ER and titrated to VM50 % but with intermitant anxious/apnea episodes and possible need to go back on CPAP will admit to ICU for next several hours while pt has further respiratory stabilization. Clinically during my observation in ER I think pt has improved enough that intubation can be avoided. Dragon Disclaimer Dragon Disclaimer This electronic medical record was generated, in whole or in part, using a voice recognition dictation system. Departure Departure Impression: Primary Impression: Acute asthma exacerbation Disposition: ADMITTED INPATIENT Condition: STABLE Referrals: PAVITHRA ALVAREZ MD (PCP) SUNG NGUYEN MD Feb 02, 2017 16:42
[2017-02-02] MEDS: NYSTATIN TOPICAL POWDER 15GM BOTTLE. TP SCH ×2 (16:56→20:49)
[2017-02-02] MEDS: WARFARIN 10 MG TABLET. PO SCH (16:56)
[2017-02-02] MEDS ORDERED: MONTELUKAST SODIUM 10 MG TABLET. PO SCH (21:00)
[2017-02-02] MEDS ORDERED: INSULIN ASPART 300 UNITS/3 ML INSULN.PEN SQ ONE (21:00)
[2017-02-03 03:00] VITALS: BP 111/50
[2017-02-03] MEDS: IPRATRPIUM/ALBUTEROL 0.5/2.5MG 3 ML NEBU. NEB SCH ×3 (06:03→16:11)
[2017-02-03] MEDS: BUDESONIDE 0.5 MG/2 ML NEBU. NEB SCH (06:03)
[2017-02-03 07:00] VITALS: BP 106/47
[2017-02-03] MEDS: NYSTATIN TOPICAL POWDER 15GM BOTTLE. TP SCH (08:32)
[2017-02-03] MEDS: DULoxetine HCL 30 MG CAPSULE.DR PO SCH (08:33)
[2017-02-03] MEDS: DICYCLOMINE HCL 10 MG CAPSULE PO SCH ×2 (08:33→14:00)
[2017-02-03] MEDS: amLODIPine BESYLATE 5 MG TABLET PO SCH (08:36)
[2017-02-03] MEDS: INSULIN ASPART 300 UNITS/3 ML INSULN.PEN SQ SCH ×6 (08:38→18:07)
[2017-02-03] MEDS: INSULIN DETEMIR 300 UNITS/3 ML INSULN.PEN. SQ SCH (08:40)
[2017-02-03] MEDS: CYCLOBENZAPRINE 10 MG TABLET. PO SCH ×2 (08:43→14:00)
[2017-02-03] MEDS: EZETIMIBE 10 MG TABLET. PO SCH (08:43)
[2017-02-03] MEDS: SIMVASTATIN 10 MG TABLET PO SCH (08:43)
[2017-02-03] MEDS ORDERED: NON FORMULARY ITEM (Tiotropium Bromide (Spiriva) 18 MCG) IH SCH (09:00)
[2017-02-03] MEDS: LUBIPROSTONE 8 MCG CAPSULE PO SCH ×2 (10:00→17:39)
[2017-02-03 11:00] VITALS: BP 96/45
[2017-02-03] MEDS ORDERED: PANTOPRAZOLE 40 MG TABLET.DR. PO SCH (11:30)
[2017-02-03] MEDS ORDERED: MUPI22OI2 NS (13:33)
[2017-02-03] MEDS ORDERED: NYST60PO TP (13:33)
[2017-02-03] MEDS ORDERED: MUPIROCIN 2 % NASAL OINTMENT 22GM TUBE. NS SCH (14:00)
[2017-02-03 15:00] VITALS: BP 114/50
[2017-02-03] MEDS: WARFARIN 10 MG TABLET. PO SCH (17:41)
--- NOTE | 2017-02-03 18:15 | DS ---
DATE OF DISCHARGE: 02/03/2017 ADMITTING DIAGNOSIS: Acute asthma exacerbation. DISCHARGE DIAGNOSIS: Acute asthma exacerbation. HISTORY AND HOSPITAL COURSE: A 66-year-old white female who presented in the Emergency Room panicky, feeling short of breath, unresponsive to home neb treatments. She has had an allergic reaction to methylprednisolone in the past. ____ tried some conservative things to help her including racemic epinephrine. Eventually, the patient required IV steroids and was premedicated with Benadryl, which she received and tolerated. She was admitted in the intensive care unit overnight and by 2:00 a.m., she was asleep and breathing well and has not had any issues since then. She was transferred yesterday to medical floor and did well. It seems that something in the outside air triggered her exacerbation. She has done well while indoors here and has not required further IV methylprednisolone. She has been on nebulized budesonide and tolerated it very well and she is at her baseline. She was found to have MRSA positive in her nose and was started on Bactroban. She was noted to have yeast under breasts and started on nystatin powder. Otherwise, her home meds have been continued. Her INR has been therapeutic. She has a history of DVT. There is no evidence to suggest a new DVT or underlying pulmonary embolism. Although, confirmed studies for these diagnoses are not done. She is alert and oriented. She is breathing easily. Her lungs are clear. Bowels are moving. No dysuria. Labs showed an elevated white count at admission of 14.9. Blood sugars have been elevated, thanks to the steroids, but are trending down. Urinalysis showed no sign of infection. Chest x-ray showed no sign of infection. She was discharged home with selfcare, new medicines: mupirocin ointment topically into her nostril b.i.d. for 10 days, nystatin powder b.i.d. topically under breasts for 10 days, she will continue amlodipine 5 mg daily, cyclobenzaprine 5 mg t.i.d., dicyclomine 20 mg t.i.d., diphenhydramine 25 mg q. 4 hours p.r.n., duloxetine 60 mg daily, Vytorin 10/10 mg 1 at bedtime, Advair 250/50 mcg 1 inhalation b.i.d., NovoLog 13 units subq t.i.d. with meals, 44 units of Levemir subq daily in the morning and 22 units in the evening, Xopenex HFA p.r.n., lisinopril 40 mg daily, Amitiza 24 mcg daily, meclizine 25 mg t.i.d., metoprolol 25 mg daily, montelukast 10 mg at bedtime, Zofran 4 mg b.i.d. p.r.n. nausea and vomiting, pantoprazole 40 mg daily, Spiriva 18 mcg 1 inhalation daily, warfarin 10 mg daily, Robitussin-DM q. 4 hours p.r.n. cough, DuoNeb nebulized q.i.d. DIET: Diabetic. ACTIVITY: Avoid temperature extremes. PLAN: Follow up in the office within 2 weeks. W Bianca ALVAREZ MD DR: BIENVENIDO/alyce JOB#: [id number] / [id number]
--- NOTE | 2017-02-05 22:11 | ACF ---
Admission Forms Criteria ASTHMA Clinical Indications for Admission to Inpatient Care (Place 'X' for any and all applicable criteria): Admission is indicated for ANY ONE of the following (1)(2)(3)(4)(5): [ ]I. Absent or markedly diminished breath sounds (silent chest) [ ]II. Oxygen saturation < 92% [ ]III. PaCO2 = / > 42 mm Hg (5.6 kPa) [ ]IV. Peak expiratory flow rate < 40% of predicted or personal best after treatment. [ ]V. Peak expiratory flow rate < 33% of predicted or personal before after treatment [ ]. Change in mental status [ ]VII. Ventilatory support required [ ]VIII. PaO2 < 60 mm Hg (8.0 kPa) [ ]IX. Cyanosis [ ]X. Cardiac dysrhythmia (e.g., bradycardia) [ ]XI. Hemodynamic instability [ ]XII. Radiographic evidence of complication requiring inpatient treatment (e.g., pneumonia, pneumothorax) [X]XIII. Inpatient admission required rather than observation care (also use Asthma: Observation Care guideline as appropriate) because of ANY ONE of the following: [ ]a) Respiratory finding that is severe or persistent (eg, dyspnea, tachypnea, accessory muscle use) [ ]b) Airflow measurements less than 60% of predicted or personal best that persist (e.g., over 24 hours) or worsen despite treatments [X]c) Supplemental oxygen or respiratory treatments for over 24 hours that are performable only in acute inpatient setting [ ]d) Other condition, treatment or monitoring requiring inpatient admission. Extended stay beyond goal length of stay may be needed for (26)(27)(28): [ ]a) Severe respiratory failure (23) (29) (30) [ ]b) Secondary causes and complications (25) [ ]c) Status asthmaticus [ ]d) Chronic obstructive asthma [ ]e) Older patients (29) [ ]f) Slow resolution [ ]g) Clinically significant exacerbation of comorbidities (eg, jacques. heart failure, atrial fibrillation) The original [employer] content created by [employer] has been revised. The portions of the content which have been revised are identified through the use of italic text or in bold, and [facility] [employer] has neither reviewed nor approved the modified material. All other unmodified content is copyright [employer] [facility] Please see references footnoted in the original [facility] edition 2016 Admission Criteria Met?: Yes ROBIN TROY Feb 05, 2017 22:11
== END 2017-02-03 18:45 | disposition home or self-care (01) | DRG 202 ==
LOC: ER 19:46 → 1 WEST ICU 21:53 → 5 NORTH 02-02 10:48
PROVIDERS: ADMIT Family Medicine; ATTEND Family Medicine
PROC: 5A09357 Assistance with Respiratory Ventilation, Less than 24 Consecutive Hours, Continuous Positive Airway Pressure (ICD-10-PCS; principal; 2017-02-01)
DX: J45.901 Unspecified asthma with (acute) exacerbation (principal); Z68.41 Body mass index [BMI] 40.0-44.9, adult; F41.9 Anxiety disorder, unspecified; E78.00 Pure hypercholesterolemia, unspecified; E11.9 Type 2 diabetes mellitus without complications; J44.9 Chronic obstructive pulmonary disease, unspecified; G89.29 Other chronic pain; G43.909 Migraine, unspecified, not intractable, without status migrainosus; F32.9 Major depressive disorder, single episode, unspecified; E66.9 Obesity, unspecified; G47.30 Sleep apnea, unspecified; M19.90 Unspecified osteoarthritis, unspecified site; K58.9 Irritable bowel syndrome, unspecified; I10 Essential (primary) hypertension; Z80.1 Family history of malignant neoplasm of trachea, bronchus and lung; Z82.49 Family history of ischemic heart disease and other diseases of the circulatory system; Z82.5 Family history of asthma and other chronic lower respiratory diseases; Z83.3 Family history of diabetes mellitus; Z86.711 Personal history of pulmonary embolism; Z86.718 Personal history of other venous thrombosis and embolism; Z98.41 Cataract extraction status, right eye; Z98.42 Cataract extraction status, left eye; Z88.5 Allergy status to narcotic agent; Z88.0 Allergy status to penicillin; Z88.2 Allergy status to sulfonamides; Z88.8 Allergy status to other drugs, medicaments and biological substances; Z90.49 Acquired absence of other specified parts of digestive tract; Z90.710 Acquired absence of both cervix and uterus; Z79.4 Long term (current) use of insulin; Z79.899 Other long term (current) drug therapy; Z79.01 Long term (current) use of anticoagulants
CPT/HCPCS: 36415; 36600; 71010; 80053; 81001; 82553; 82962; 83880; 84484; 85027; 85379; 85610; 87641; 93005; 94250; 94640; 94660; 94760; 96365; 96366; 96375; J1200; J1815; J1956; J2930; J7030; J7620; Q0162; 99285-25

== ENCOUNTER 2017-02-24 11:45 | Inpatient (IN) | payer BC, OTHER ==
[~2017-02-24] VITALS: Ht 165.1 cm; Wt 117.9 kg
[~2017-02-24 11:45] MED LIST changes: +MUPI22OI2 NS
[2017-02-24] MEDS ORDERED: methylPREDNISolone SOD SUCC PF 125 MG/2 ML VIAL. IV ONE (12:00)
[2017-02-24] MEDS ORDERED: diphenhydrAMINE 50 MG/ML VIAL IVP ONE (12:00)
[2017-02-24] MEDS ORDERED: IPRATRPIUM/ALBUTEROL 0.5/2.5MG 3 ML NEBU. NEB ONE (12:00)
[2017-02-24] MEDS ORDERED: ALBUTEROL SULFATE 2.5 MG/3 ML NEBU. NEB ONE (12:00)
--- NOTE | 2017-02-24 12:22 | EKG ---
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
--- NOTE | 2017-02-24 12:27 | RAD ---
Examination: Single frontal view the chest. History: History of shortness of breath Comparison: 02/01/2017 Findings: The cardiomediastinal silhouette grossly appears unremarkable. There is no acute infiltrate or visualized pneumothorax. Impression: No acute cardiopulmonary findings.
[2017-02-24] MEDS ORDERED: MAGNESIUM SULFATE 2GM 50 ML IV ONE (12:30)
[2017-02-24] MEDS ORDERED: IV NORMAL SALINE 1000ML BAG 1,000 ML IV ONE (12:30)
[2017-02-24] MEDS ORDERED: ALBUTEROL SULFATE 2.5 MG/3 ML NEBU. CONT NEB ONE (12:30)
--- NOTE | 2017-02-24 12:41 | PHYS DOC ---
Past Medical History Past Medical History: Asthma, COPD, Diabetes-Type II, High Cholesterol, Hypertension, Migraines, MRSA, Other Additional Past Medical Histor: sleep apnea; PE, chronic abdominal pain Past Surgical History: Appendectomy, Cholecystectomy, Colectomy, Hysterectomy Additional Past Surgical Histo: breast biopsies; bx cataracts; bx shoulders; umbilical hernia Alcohol Use: None Drug Use: None Adult General Chief Complaint Chief Complaint: SHORTNESS OF BREATH HPI HPI Patient is a 66 year old female presenting to the department for evaluation of worsening shortness of breath that started while she was in [place] this morning. She said that she had sudden onset wheezing and could not catch her breath and she took her inhaler at least 2 times which did not help so he builds was called. He sees breathing treatments by EMS with says that she is not feeling any better. Patient does look moderately to severe short of breath she is to 30 breaths per minute with auction saturation of 99% on 2 L. She has almost undetectable breath sounds bilaterally except for faint wheeze. Review of Systems Review of Systems Constitutional: Denies fever or chills [] Eyes: Denies change in visual acuity, redness, or eye pain [] HENT: Denies nasal congestion or sore throat [] Respiratory: Denies cough. + shortness of breath [] Cardiovascular: No additional information not addressed in HPI [] GI: Denies abdominal pain, nausea, vomiting, bloody stools or diarrhea [] : Denies dysuria or hematuria [] Musculoskeletal: Denies back pain or joint pain [] Integument: Denies rash or skin lesions [] Neurologic: Denies headache, focal weakness or sensory changes [] Current Medications Current Medications Current Medications Medications (Trade) Dose Ordered Sig/Irish Start Time Stop Time Status Last Admin Dose Admin Albuterol Sulfate (Ventolin Neb Soln) 10 mg 1X ONCE 02/24/17 12:30 02/24/17 12:31 DC Albuterol/ Ipratropium (Duoneb) 3 ml 1X ONCE 02/24/17 12:00 02/24/17 12:01 DC 02/24/17 12:03 3 ML Diphenhydramine HCl (Benadryl) 25 mg 1X ONCE 02/24/17 12:00 02/24/17 12:01 DC 02/24/17 12:27 25 MG Magnesium Sulfate/ Dextrose 50 ml @ 25 mls/hr 1X ONCE 02/24/17 12:30 02/24/17 14:29 02/24/17 12:32 25 MLS/HR Methylprednisolone Sodium Succinate (SOLU-Medrol 125MG VIAL) 125 mg 1X ONCE 02/24/17 12:00 02/24/17 12:01 DC 02/24/17 12:30 125 MG Sodium Chloride 1,000 ml @ 1,000 mls/hr 1X ONCE 02/24/17 12:30 02/24/17 13:29 02/24/17 12:25 1,000 MLS/HR Allergies Allergies Allergies Coded Allergies Type Severity Reaction Last Updated Verified Penicillins Allergy Intermediate itching, dry mouth, tongue swells 12/16/15 Yes Sulfa (Sulfonamide Antibiotics) Allergy Intermediate ITCHING DRY MOUTH, hives/ swelling 12/16/15 Yes fentanyl Allergy Intermediate 12/16/15 Yes hydromorphone HCl Allergy Intermediate MORPHINE OK 12/16/15 Yes methylprednisolone Allergy Intermediate RED MAN SYNDROME 10/11/16 Yes prednisone Allergy Intermediate RED MED SYNDROME 10/11/16 Yes I S O L A T I O N *CONTACT* Allergy Unknown 02/04/17 Yes oxycodone HCl Adverse Reaction Intermediate "i FEEL LIKE I HAVE WORMS IN ME" Yes Physical Exam Physical Exam Constitutional: Short of breath and ill-appearing HENT: Normocephalic, atraumatic, bilateral external ears normal, oropharynx moist, no oral exudates, nose normal. [] Eyes: PERRLA, EOMI, conjunctiva normal, no discharge. [] Neck: Normal range of motion, no tenderness, supple, no stridor. [] Cardiovascular:Heart rate regular rhythm, no murmur [] Lungs & Thorax: Bilateral breath sounds present but very faint with wheezes auscultated. Abdomen: Bowel sounds normal, soft, no tenderness, no masses, no pulsatile masses. [] Skin: Warm, dry, no erythema, no rash. [] Back: No tenderness, no CVA tenderness. [] Extremities: No tenderness, no cyanosis, no clubbing, ROM intact, no edema. [] Neurologic: Alert and oriented X 3, normal motor function, normal sensory function, no focal deficits noted. [] Current Patient Data Vital Signs Vital Signs Date Time Temp Pulse Resp B/P (MAP) Pulse Ox O2 Delivery O2 Flow Rate FiO2 02/24/17 12:10 96 Room Air 02/24/17 11:45 98.3 90 24 204/88 (126) 98.3 Lab Values Laboratory Tests Test 02/24/17 12:19 O2 Saturation 96 % (92-99) Arterial Blood pH 7.39 (7.35-7.45) Arterial Blood pCO2 at Patient Temp 38 mmHg (35-46) Arterial Blood pO2 at Patient Temp 89 mmHg (65-108) Arterial Blood HCO3 22 mmol/L (21-28) Arterial Blood Base Excess -2 mmol/L (-3-3) Oxyhemoglobin 95.2 % Methemoglobin 0.5 % (0.0-1.9) Carbon Monoxide, Quantitative 0.3 % (0.0-1.9) FiO2 21 EKG EKG Sinus at 98 bpm with leftward axis no obvious ST elevation or depression and normal T waves. Radiology/Procedures Radiology/Procedures Examination: Single frontal view the chest. History: History of shortness of breath Comparison: 02/01/2017 Findings: The cardiomediastinal silhouette grossly appears unremarkable. There is no acute infiltrate or visualized pneumothorax. Impression: No acute cardiopulmonary findings. DICTATED and SIGNED BY: COLLIN SANCHEZ MD DATE: 02/24/17 1224 Course & Med Decision Making Course & Med Decision Making Patient is very short of breath and appears moderately ill on presentation. She was given 3 breathing treatments in addition to methylprednisolone and Benadryl. She improved markedly still appears to be quite short of breath. Given she is short of breath persistently put on continuous nebulizers in addition to magnesium and BiPAP. I spoke to Dr. Zacarias and given how short of breath she is she will be admitted to the ICU for further observation and treatment. Patient admitted in guarded condition Critical care time of 35 minutes. Dragon Disclaimer Dragon Disclaimer This electronic medical record was generated, in whole or in part, using a voice recognition dictation system. Departure Departure Impression: Primary Impression: Acute asthma exacerbation Disposition: ADMITTED INPATIENT Admitting Physician: Rupa Zacarias Condition: GUARDED Referrals: PAVITHRA ALVAREZ MD (PCP) Problem Qualifiers Primary Impression: Acute asthma exacerbation Asthma severity: severe persistent Qualified Codes: J45.51 - Severe persistent asthma with (acute) exacerbation KODY RENDON DO Feb 24, 2017 12:41
[2017-02-24 12:44] LABS: BASE EXCESS COOX -2 mmol/L (-3-3); CARBON MONOXIDE 0.3 % (0.0-1.9); HCO3 COOX 22 mmol/L (21-28); METHEMOGLOBIN 0.5 % (0.0-1.9); OXYHEMOGLOBIN 95.2 %; PCO2 COOX 38 mmHg (35-46); PH COOX 7.39 (7.35-7.45); PO2 COOX 89 mmHg (65-108); SAT O2 COOX 96 % (92-99); TOTAL HEMOGLOBIN 14.4 g/dL
[2017-02-24] MEDS ORDERED: ONDANSETRON PF 4 MG/2 ML VIAL. IV PRN (12:45)
[2017-02-24 12:46] LABS: FIO2 COOX 21
[2017-02-24 13:07] LABS: BASO % 1 % (0-3); EOS % 2 % (0-3); HEMATOCRIT 40.2 % (36.0-47.0); HEMOGLOBIN 13.5 g/dL (12.0-15.5); LYMPH # 4.5 x10^3/uL (1.0-4.8); LYMPH % 46 % (24-48); MEAN CORPUSCULAR HEMOGLOBIN 29 pg (25-35); MEAN CORPUSCULAR HGB CONC 34 g/dL (31-37); MEAN CORPUSCULAR VOLUME 86 fL (79-100); MONO % 7 % (0-9); NEUT % 45 % (31-73); PLATELET COUNT 274 x10^3/uL (140-400); RED CELL DISTRIBUTION WIDTH 15.3 % (11.5-14.5); WHITE BLOOD COUNT 9.8 x10^3/uL (4.0-11.0)
[2017-02-24 13:28] LABS: CALCIUM 9.1 mg/dL (8.5-10.1); CREATININE 0.9 mg/dL (0.6-1.0); GFR 62.8
[2017-02-24 13:35] LABS: ALBUMIN 3.3 g/dL (3.4-5.0); ALBUMIN/GLOBULIN RATIO 0.9 (1.0-1.7); TOTAL BILIRUBIN 0.3 mg/dL (0.2-1.0)
[2017-02-24 13:49] VITALS: BP 146/63
[2017-02-24 14:00] VITALS: BP 148/57
--- NOTE | 2017-02-24 15:28 | PDOC2 ---
CONSULT Date of Consult Date of Consult DATE: 02/24/17 TIME: 15:17 Reason for Consult Reason for Consult: ACUTE RESP FAILURE ASTHMA EXAC Referring Physician Referring Physician: DR ALVAREZ Identification/Chief Complaint Chief Complaint SOA AND WHEEZE NOT RESPONDING TO HOME MDI AND NEB TREATMENT Problems: Source Source: Chart review, Patient History of Present Illness Reason for Visit: PT WITH KNOW ASTHMA NEVER SMOKED, NEVER HAD ALLERGY TESTING LIVED IN [place] 10 YEARS AGO DID WELL. INTUBATED 10 YEARS AGO WHEN SHE RETURNED TO STARTED HAVING WHEEZING AND COUGH IN SABIANISM, NOT RESPONDING TO MDI AND PORTABLE NEB PRESENT TO ER IN RESP DISTRESS, ADMITTED TO ICU FOR BIPAP WHEN I ARRIVED PT WORK OF BREATHING HAD IMPROVED NO AUDIBLE WHEEZE AND PT LOOKED COMFORTABLE PT DENIES F/C/N/V NO NEW EXPOSURE, NO PET AT HOME COMPLIANT WITH MED NO SYNCOPE, CHEST PAIN OR PLEURISY Patient is a 66 year old female presenting to the department for evaluation of worsening shortness of breath that started while she was in [place] this morning. She said that she had sudden onset wheezing and could not catch her breath and she took her inhaler at least 2 times which did not help so he builds was called. He sees breathing treatments by EMS with says that she is not feeling any better. Patient does look moderately to severe short of breath she is to 30 breaths per minute with auction saturation of 99% on 2 L. She has almost undetectable breath sounds bilaterally except for faint wheeze. Past Medical History Cardiovascular: CAD, HTN Pulmonary: Asthma, COPD, Pulmonary embolus (APPARENTLY TIMES 4), Other GI: GERD Heme/Onc: No pertinent hx Hepatobiliary: No pertinent hx Psych: Depression Rheumatologic: No pertinent hx Infectious disease: No pertinent hx Renal/: No pertinent hx Endocrine: Diabetes, Other Past Surgical History Past Surgical History: Appendectomy, Breast Biopsy, Cholecystectomy, Cataract Removal, Hernia Repair, Tonsillectomy, Hysterectomy, Other Family History Family History: Asthma (PARTERNAL SIDE AND SIBLING), Coronary Artery Disease, Diabetes Social History No ALCOHOL: none Drugs: None Lives: Alone Current Problem List Problem List Problems Medical Problems: (1) Acute asthma exacerbation Status: Acute Current Medications Current Medications Current Medications Albuterol/ Ipratropium (Duoneb) 3 ml 1X ONCE NEB Last administered on t 12:03; Start 02/24/17 at 12:00; Stop 02/24/17 at 12:01; Status DC Albuterol Sulfate (Ventolin Neb Soln) 5 mg 1X ONCE NEB Last administered on 12:03; Start 02/24/17 at 12:00; Stop 02/24/17 at 12:01; Status DC Methylprednisolone Sodium Succinate (SOLU-Medrol 125MG VIAL) 125 mg 1X ONCE IV Last administered on 02/24/17 12:30; Start 02/24/17 at 12:00; Stop 02/24/17 at 12:01; Status DC Diphenhydramine HCl (Benadryl) 25 mg 1X ONCE IVP Last administered on 12:27; Start 02/24/17 at 12:00; Stop 02/24/17 at 12:01; Status DC Magnesium Sulfate/ Dextrose 50 ml @ 25 mls/hr 1X ONCE IV Last administered on 02/24/17 12:32; Start 02/24/17 at 12:30; Stop 02/24/17 at 14:29; Status DC Sodium Chloride 1,000 ml @ 1,000 mls/hr 1X ONCE IV Last administered on 12:25; Start 02/24/17 at 12:30; Stop 02/24/17 at 13:29; Status DC Albuterol Sulfate (Ventolin Neb Soln) 10 mg 1X ONCE CONT NEB Last administered on 02/24/17 12:30; Start 02/24/17 at 12:30; Stop 02/24/17 at 12:31; Status DC Ondansetron HCl (Zofran) 4 mg PRN Q8HRS PRN IV NAUSEA/VOMITING; Start 02/24/17 at 12:45; Stop 02/25/17 at 12:44 Potassium Chloride 50 ml @ 50 mls/hr Q1H IV ; Start 02/24/17 at 15:30; Stop at 15:30; Status DC Potassium Chloride 100 ml @ 100 mls/hr Q1H IV ; Start 02/24/17 at 15:30; Stop at 19:29 Active Scripts Active Nystop (Nystatin) 60 Gm Powder 1 Renate TP BID 10 Days Mupirocin Ointment (Mupirocin) 22 Gm Oint...g. 1 Renate NS BID 10 Days Pantoprazole Sodium 40 Mg Tablet.dr 40 Mg PO DAILYAC Meclizine Hcl 25 Mg Tablet 1 Tab PO PRN TID When necessary for dizziness Zofran (Ondansetron Hcl) 4 Mg Tablet 4 Mg PO BID PRN Cyclobenzaprine Hcl 5 Mg Tablet 5 Mg PO TID Amitiza (Lubiprostone) 8 Mcg Capsule 24 Mcg PO BIDWMEALS Benadryl (Diphenhydramine Hcl) 25 Mg Capsule 25 Mg PO PRN Q4HRS PRN [Ipratropium/Albuterol Sulfate] 3 ML Nebu 3 Ml NEB RTQID [Guaifenesin/Dextromethorphan] 10 ML Syrup 10 Ml PO PRN Q4HRS PRN Reported Levemir (Insulin Detemir) 100 Unit/1 Ml Vial 22 Unit SQ HS Novolog Flexpen (Insulin Aspart) 100 Unit/1 Ml Insuln.pen 13 Unit SQ TIDAC Coumadin (Warfarin Sodium) 10 Mg Tablet 10 Mg PO DAILY Levemir (Insulin Detemir) 100 Unit/1 Ml Vial 44 Unit SQ DAILY08 Dicyclomine Hcl 20 Mg Tablet 1 Tab PO TID Amlodipine Besylate 5 Mg Tablet 1 Tab PO DAILY Metoprolol Succinate ( Xl ) (Metoprolol Succinate) 25 Mg Tab.er.24h 1 Tab PO DAILY Vytorin 10-10 Mg Tablet (Ezetimibe/Simvastatin) 1 Each Tablet 1 Each PO HS Xopenex Hfa (Levalbuterol Tartrate) 15 Gm Hfa.aer.ad 15 Gm IH PRN BID PRN Spiriva (Tiotropium Steele) 18 Mcg Cap.w.dev 18 Mcg IH DAILY Advair 250-50 Diskus (Fluticasone/Salmeterol) 1 Each Disk.w.dev 1 Each IH BID94 Cymbalta (Duloxetine Hcl) 60 Mg Capsule.dr 90 Mg PO DAILY Singulair Tablet (Montelukast Sodium) 10 Mg Tablet 10 Mg PO HS Lisinopril 40 Mg Tablet 20 Mg PO DAILY Allergies Allergies: Coded Allergies: Penicillins (Verified Allergy, Intermediate, itching, dry mouth, tongue swells, 12/16/15) Sulfa (Sulfonamide Antibiotics) (Verified Allergy, Intermediate, ITCHING DRY MOUTH, hives/swelling, 12/16/15) fentanyl (Verified Allergy, Intermediate, 12/16/15) hydromorphone HCl (Verified Allergy, Intermediate, MORPHINE OK, 12/16/15) methylprednisolone (Verified Allergy, Intermediate, RED MAN SYNDROME, 10/11) prednisone (Verified Allergy, Intermediate, RED MED SYNDROME, 10/11/16) I S O L A T I O N *CONTACT* (Verified Allergy, Unknown, 02/04/17) mrsa oxycodone HCl (Verified Adverse Reaction, Intermediate, "i FEEL LIKE I HAVE WORMS IN ME", 12/16/15) 06/28 TOLERATING HYDROCODONE/APAP ROS Review of System TOLERATED SOLUMEDROL LAST ADMISSION Respiratory: YES: Cough, Orthopnea, Shortness of breath, SOB with excertion, Tachypnea, Wheezing Physical Exam General: Alert, Oriented X3 HEENT: EOMI Lungs: Clear to auscultation, Normal air movement Heart: Regular rate, Normal S1, Normal S2 Abdomen: Normal bowel sounds, Soft, No tenderness Extremities: No clubbing, No cyanosis, No edema Skin: No rashes, No breakdown Neuro: Normal speech MUSCULOSKELETAL: No swelling Vitals VITALS Vital Signs Date Time Temp Pulse Resp B/P (MAP) Pulse Ox O2 Delivery O2 Flow Rate FiO2 02/24/17 14:24 Room Air 02/24/17 14:00 100 20 148/57 (87) 02/24/17 13:49 98.8 98.8 02/24/17 13:21 93 Labs Labs Laboratory Tests Test 02/24/17 12:19 02/24/17 12:55 O2 Saturation 96 % (92-99) Arterial Blood pH 7.39 (7.35-7.45) Arterial Blood pCO2 at Patient Temp 38 mmHg (35-46) Arterial Blood pO2 at Patient Temp 89 mmHg (65-108) Arterial Blood HCO3 22 mmol/L (21-28) Arterial Blood Base Excess -2 mmol/L (-3-3) Oxyhemoglobin 95.2 % Methemoglobin 0.5 % (0.0-1.9) Carbon Monoxide, Quantitative 0.3 % (0.0-1.9) FiO2 21 White Blood Count 9.8 x10^3/uL (4.0-11.0) Red Blood Count 4.70 x10^6/uL (3.50-5.40) Hemoglobin 13.5 g/dL (12.0-15.5) Hematocrit 40.2 % (36.0-47.0) Mean Corpuscular Volume 86 fL (79-100) Mean Corpuscular Hemoglobin 29 pg (25-35) Mean Corpuscular Hemoglobin Concent 34 g/dL (31-37) Red Cell Distribution Width 15.3 % (11.5-14.5) Platelet Count 274 x10^3/uL (140-400) Neutrophils (%) (Auto) 45 % (31-73) Lymphocytes (%) (Auto) 46 % (24-48) Monocytes (%) (Auto) 7 % (0-9) Eosinophils (%) (Auto) 2 % (0-3) Basophils (%) (Auto) 1 % (0-3) Neutrophils # (Auto) 4.4 x10^3uL (1.8-7.7) Lymphocytes # (Auto) 4.5 x10^3/uL (1.0-4.8) Monocytes # (Auto) 0.6 x10^3/uL (0.0-1.1) Eosinophils # (Auto) 0.2 x10^3/uL (0.0-0.7) Basophils # (Auto) 0.0 x10^3/uL (0.0-0.2) Sodium Level 135 mmol/L (136-145) Potassium Level 3.0 mmol/L (3.5-5.1) Chloride Level 96 mmol/L (98-107) Carbon Dioxide Level 24 mmol/L (21-32) Anion Gap 15 (6-14) Blood Urea Nitrogen 11 mg/dL (7-20) Creatinine 0.9 mg/dL (0.6-1.0) Estimated GFR (Cockcroft-Gault) 62.8 BUN/Creatinine Ratio 12 (6-20) Glucose Level 361 mg/dL (70-99) Calcium Level 9.1 mg/dL (8.5-10.1) Magnesium Level 1.7 mg/dL (1.8-2.4) Total Bilirubin 0.3 mg/dL (0.2-1.0) Aspartate Amino Transf (AST/SGOT) 21 U/L (15-37) Alanine Aminotransferase (ALT/SGPT) 23 U/L (14-59) Alkaline Phosphatase 141 U/L (46-116) Troponin I Quantitative < 0.017 ng/mL (0.000-0.055) [id number]-Type Natriuretic Peptide 32 pg/mL (0-124) Total Protein 7.0 g/dL (6.4-8.2) Albumin 3.3 g/dL (3.4-5.0) Albumin/Globulin Ratio 0.9 (1.0-1.7) Laboratory Tests Test 02/24/17 12:19 02/24/17 12:55 O2 Saturation 96 % (92-99) Arterial Blood pH 7.39 (7.35-7.45) Arterial Blood pCO2 at Patient Temp 38 mmHg (35-46) Arterial Blood pO2 at Patient Temp 89 mmHg (65-108) Arterial Blood HCO3 22 mmol/L (21-28) Arterial Blood Base Excess -2 mmol/L (-3-3) Oxyhemoglobin 95.2 % Methemoglobin 0.5 % (0.0-1.9) Carbon Monoxide, Quantitative 0.3 % (0.0-1.9) FiO2 21 White Blood Count 9.8 x10^3/uL (4.0-11.0) Red Blood Count 4.70 x10^6/uL (3.50-5.40) Hemoglobin 13.5 g/dL (12.0-15.5) Hematocrit 40.2 % (36.0-47.0) Mean Corpuscular Volume 86 fL (79-100) Mean Corpuscular Hemoglobin 29 pg (25-35) Mean Corpuscular Hemoglobin Concent 34 g/dL (31-37) Red Cell Distribution Width 15.3 % (11.5-14.5) Platelet Count 274 x10^3/uL (140-400) Neutrophils (%) (Auto) 45 % (31-73) Lymphocytes (%) (Auto) 46 % (24-48) Monocytes (%) (Auto) 7 % (0-9) Eosinophils (%) (Auto) 2 % (0-3) Basophils (%) (Auto) 1 % (0-3) Neutrophils # (Auto) 4.4 x10^3uL (1.8-7.7) Lymphocytes # (Auto) 4.5 x10^3/uL (1.0-4.8) Monocytes # (Auto) 0.6 x10^3/uL (0.0-1.1) Eosinophils # (Auto) 0.2 x10^3/uL (0.0-0.7) Basophils # (Auto) 0.0 x10^3/uL (0.0-0.2) Sodium Level 135 mmol/L (136-145) Potassium Level 3.0 mmol/L (3.5-5.1) Chloride Level 96 mmol/L (98-107) Carbon Dioxide Level 24 mmol/L (21-32) Anion Gap 15 (6-14) Blood Urea Nitrogen 11 mg/dL (7-20) Creatinine 0.9 mg/dL (0.6-1.0) Estimated GFR (Cockcroft-Gault) 62.8 BUN/Creatinine Ratio 12 (6-20) Glucose Level 361 mg/dL (70-99) Calcium Level 9.1 mg/dL (8.5-10.1) Magnesium Level 1.7 mg/dL (1.8-2.4) Total Bilirubin 0.3 mg/dL (0.2-1.0) Aspartate Amino Transf (AST/SGOT) 21 U/L (15-37) Alanine Aminotransferase (ALT/SGPT) 23 U/L (14-59) Alkaline Phosphatase 141 U/L (46-116) Troponin I Quantitative < 0.017 ng/mL (0.000-0.055) AO-[id number]-I-Type Natriuretic Peptide 32 pg/mL (0-124) Total Protein 7.0 g/dL (6.4-8.2) Albumin 3.3 g/dL (3.4-5.0) Albumin/Globulin Ratio 0.9 (1.0-1.7) Assessment/Plan Assessment/Plan ASTHMA EXACERBATION SUSPECT TO WEATHER AND POSSIBLE ALLERGIES H/O PE/DVT ON CHRONIC A/C HTN JESI DM TYPE 2 PLAN SEE ORDERS OK TO TRANSFER OUT OF ICU HOME CPAP A/C TUAN MANTILLA MD Feb 24, 2017 15:28
[2017-02-24] MEDS ORDERED: POTASSIUM CHLORIDE 20MEQ 50 ML IV SCH (15:30)
[2017-02-24] MEDS ORDERED: POTASSIUM CHLORIDE 10MEQ 100 ML IV SCH (15:30)
[2017-02-24] MEDS: IPRATRPIUM/ALBUTEROL 0.5/2.5MG 3 ML NEBU. NEB SCH ×2 (16:19→19:35)
[2017-02-24] MEDS ORDERED: POTASSIUM CHLORIDE 10 MEQ TABLET.ER. PO ONE (16:45)
[2017-02-24 19:00] VITALS: BP 127/55
[2017-02-24] MEDS: ALBUTEROL SULFATE 2.5 MG/3 ML NEBU. NEB PRN (19:57)
[2017-02-24] MEDS ORDERED: MONTELUKAST SODIUM 10 MG TABLET. PO SCH (21:00)
[2017-02-24] MEDS ORDERED: FAMOTIDINE 20 MG/2 ML VIAL IVP SCH (21:00)
[2017-02-24] MEDS ORDERED: methylPREDNISolone SOD SUCC PF 125 MG/2 ML VIAL. IV SCH (21:00)
[2017-02-24] MEDS ORDERED: guaiFENesin DM 200MG/20MG 10 ML SYRUP PO PRN (21:00)
[2017-02-24] MEDS ORDERED: INSULIN DETEMIR 300 UNITS/3 ML INSULN.PEN. SQ SCH (21:00)
[2017-02-24] MEDS ORDERED: MECLIZINE HCL 12.5 MG TABLET. PO PRN (21:00)
[2017-02-24 21:38] VITALS: BP 150/75
[2017-02-24] MEDS ORDERED: DEXTROSE 50% 25 GM / 50ML DISP.SYRIN. IV PRN (21:45)
[2017-02-24] MEDS: MONTELUKAST SODIUM 10 MG TABLET. PO SCH (21:45)
[2017-02-24] MEDS: EZETIMIBE 10 MG TABLET. PO SCH (21:45)
[2017-02-24] MEDS: DICYCLOMINE HCL 10 MG CAPSULE PO SCH (21:46)
[2017-02-24] MEDS: LORazepam 0.5 MG TABLET PO PRN (21:46)
[2017-02-24] MEDS: SIMVASTATIN 10 MG TABLET PO SCH (22:28)
[2017-02-24] MEDS: CYCLOBENZAPRINE 10 MG TABLET. PO SCH (22:28)
[2017-02-24] MEDS: diphenhydrAMINE 50 MG/ML VIAL IVP SCH (22:31)
[2017-02-24] MEDS: INSULIN DETEMIR 300 UNITS/3 ML INSULN.PEN. SQ SCH (22:45)
[2017-02-24] MEDS: methylPREDNISolone SOD SUCC PF 125 MG/2 ML VIAL. IV SCH (22:58)
[2017-02-24] MEDS ORDERED: INSULIN ASPART 300 UNITS/3 ML INSULN.PEN SQ ONE (23:00)
[2017-02-25] MEDS: HYDROcodone/APAP 5/325MG 1 TAB TABLET PO PRN ×2 (02:58→13:42)
[2017-02-25 03:02] VITALS: BP 119/62
--- NOTE | 2017-02-25 05:04 | ACF ---
Admission Forms Criteria ASTHMA Clinical Indications for Admission to Inpatient Care (Place 'X' for any and all applicable criteria): Admission is indicated for ANY ONE of the following (1)(2)(3)(4)(5): [ ]I. Absent or markedly diminished breath sounds (silent chest) [ ]II. Oxygen saturation < 92% [ ]III. PaCO2 = / > 42 mm Hg (5.6 kPa) [ ]IV. Peak expiratory flow rate < 40% of predicted or personal best after treatment. [ ]V. Peak expiratory flow rate < 33% of predicted or personal before after treatment [ ]. Change in mental status [ ]VII. Ventilatory support required [ ]VIII. PaO2 < 60 mm Hg (8.0 kPa) [ ]IX. Cyanosis [ ]X. Cardiac dysrhythmia (e.g., bradycardia) [X]XI. Hemodynamic instability [ ]XII. Radiographic evidence of complication requiring inpatient treatment (e.g., pneumonia, pneumothorax) [ ]XIII. Inpatient admission required rather than observation care (also use Asthma: Observation Care guideline as appropriate) because of ANY ONE of the following: [ ]a) Respiratory finding that is severe or persistent (eg, dyspnea, tachypnea, accessory muscle use) [ ]b) Airflow measurements less than 60% of predicted or personal best that persist (e.g., over 24 hours) or worsen despite treatments [ ]c) Supplemental oxygen or respiratory treatments for over 24 hours that are performable only in acute inpatient setting [ ]d) Other condition, treatment or monitoring requiring inpatient admission. Extended stay beyond goal length of stay may be needed for (26)(27)(28): [ ]a) Severe respiratory failure (23) (29) (30) [ ]b) Secondary causes and complications (25) [ ]c) Status asthmaticus [ ]d) Chronic obstructive asthma [ ]e) Older patients (29) [ ]f) Slow resolution [ ]g) Clinically significant exacerbation of comorbidities (eg, jacques. heart failure, atrial fibrillation) The original [email or web address] content created by [employer] has been revised. The portions of the content which have been revised are identified through the use of italic text or in bold, and [email or web address] [employer] has neither reviewed nor approved the modified material. All other unmodified content is copyright [facility] Please see references footnoted in the original [facility] edition 2016 Admission Criteria Met?: Yes NAVI HARPER Feb 25, 2017 05:04
[2017-02-25 05:23] LABS: BASO % 0 % (0-3); EOS % 0 % (0-3); HEMATOCRIT 37.5 % (36.0-47.0); HEMOGLOBIN 12.5 g/dL (12.0-15.5); LYMPH # 1.3 x10^3/uL (1.0-4.8); LYMPH % 13 % (24-48); MEAN CORPUSCULAR HEMOGLOBIN 29 pg (25-35); MEAN CORPUSCULAR HGB CONC 34 g/dL (31-37); MEAN CORPUSCULAR VOLUME 86 fL (79-100); MONO % 1 % (0-9); NEUT % 85 % (31-73); PLATELET COUNT 301 x10^3/uL (140-400); RED BLOOD COUNT 4.37 x10^6/uL (3.50-5.40); RED CELL DISTRIBUTION WIDTH 15.5 % (11.5-14.5); WHITE BLOOD COUNT 10.4 x10^3/uL (4.0-11.0)
[2017-02-25 05:45] LABS: CALCIUM 8.8 mg/dL (8.5-10.1); CREATININE 0.8 mg/dL (0.6-1.0)
[2017-02-25 05:50] LABS: POTASSIUM 4.7 mmol/L (3.5-5.1)
[2017-02-25 06:50] LABS: % BASOS 1 % (0-3); PLT ESTIMATE ADEQUATE (ADEQUATE)
[2017-02-25 07:00] VITALS: BP 147/71
[2017-02-25] MEDS: BUDESONIDE 0.5 MG/2 ML NEBU. NEB SCH ×2 (07:57→19:27)
[2017-02-25] MEDS: IPRATRPIUM/ALBUTEROL 0.5/2.5MG 3 ML NEBU. NEB SCH ×4 (07:57→19:27)
[2017-02-25] MEDS: LUBIPROSTONE 8 MCG CAPSULE PO SCH ×2 (08:00→17:00)
[2017-02-25] MEDS ORDERED: ZOLPIDEM 5 MG TABLET. PO PRN (08:15)
[2017-02-25] MEDS: DICYCLOMINE HCL 10 MG CAPSULE PO SCH ×3 (08:16→21:00)
[2017-02-25] MEDS: methylPREDNISolone SOD SUCC PF 125 MG/2 ML VIAL. IV SCH ×2 (08:17→21:01)
[2017-02-25] MEDS: CYCLOBENZAPRINE 10 MG TABLET. PO SCH ×3 (08:17→21:00)
[2017-02-25] MEDS: diphenhydrAMINE 50 MG/ML VIAL IVP SCH ×2 (08:17→21:01)
[2017-02-25] MEDS ORDERED: INSULIN ASPART 300 UNITS/3 ML INSULN.PEN SQ ONE ×2 (08:30→11:45)
[2017-02-25] MEDS: INSULIN DETEMIR 300 UNITS/3 ML INSULN.PEN. SQ SCH ×2 (08:34→21:33)
[2017-02-25] MEDS: INSULIN ASPART 300 UNITS/3 ML INSULN.PEN SQ SCH ×5 (08:34→17:11)
--- NOTE | 2017-02-25 08:38 | PDOC1 ---
History and Physical Date of Admission Date of Admission DATE: 02/24/17 TIME: 1234 Identification/Chief Complaint Chief Complaint Shortness of breath. Problems: History of Present Illness History of Present Illness Patient is a 66 year old female with a long history of asthma. She presented to the ER with the above complaint. She reported that she started to feel very short of air while in [facility] on the morning of admission. She had been using her usual inhalers but felt her symptoms start after she went out in the heat to walk across the street from her home to go to [facility]. She used her rescue inhaler but her symptoms persisted and she became very anxious so came to the ER. Initial exam there included a chest xray, which was without acute infiltrate. She was not significantly hypoxic but seemed to be struggling to breath and had very poor air flow on exam. She was given a large dose of Solumedrol and admitted for further treatment. Past Medical History Cardiovascular: CAD, HTN Pulmonary: Asthma, Pulmonary embolus (APPARENTLY TIMES 4) GI: GERD, Irritable bowel disease, Other (gluten intolerance) Heme/Onc: No pertinent hx Hepatobiliary: No pertinent hx Psych: Anxiety, Depression Rheumatologic: No pertinent hx Infectious disease: No pertinent hx Renal/: No pertinent hx Endocrine: Diabetes Past Surgical History Past Surgical History: Appendectomy, Breast Biopsy, Cholecystectomy, Cataract Removal, Hernia Repair (6 abdominal hernia repairs), Tonsillectomy, Hysterectomy , Other (bilateral shoulder replacements) Family History Family History: Asthma (PARTERNAL SIDE AND SIBLING), Coronary Artery Disease, Diabetes Social History Smoke: No ALCOHOL: none Drugs: None Current Problem List Problem List Problems Medical Problems: (1) Acute asthma exacerbation Status: Acute Problems: Current Medications Current Medications Current Medications Albuterol/ Ipratropium (Duoneb) 3 ml 1X ONCE NEB Last administered on 12:03; Start 02/24/17 at 12:00; Stop 02/24/17 at 12:01; Status DC Albuterol Sulfate (Ventolin Neb Soln) 5 mg 1X ONCE NEB Last administered on 12:03; Start 02/24/17 at 12:00; Stop 02/24/17 at 12:01; Status DC Methylprednisolone Sodium Succinate (SOLU-Medrol 125MG VIAL) 125 mg 1X ONCE IV Last administered on 02/24/17 12:30; Start 02/24/17 at 12:00; Stop 02/24/17 at 12:01; Status DC Diphenhydramine HCl (Benadryl) 25 mg 1X ONCE IVP Last administered on 12:27; Start 02/24/17 at 12:00; Stop 02/24/17 at 12:01; Status DC Magnesium Sulfate/ Dextrose 50 ml @ 25 mls/hr 1X ONCE IV Last administered on 02/24/17 12:32; Start 02/24/17 at 12:30; Stop 02/24/17 at 14:29; Status DC Sodium Chloride 1,000 ml @ 1,000 mls/hr 1X ONCE IV Last administered on 12:25; Start 02/24/17 at 12:30; Stop 02/24/17 at 13:29; Status DC Albuterol Sulfate (Ventolin Neb Soln) 10 mg 1X ONCE CONT NEB Last administered on 02/24/17 12:30; Start 02/24/17 at 12:30; Stop 02/24/17 at 12:31; Status DC Ondansetron HCl (Zofran) 4 mg PRN Q8HRS PRN IV NAUSEA/VOMITING; Start 02/24/17 at 12:45; Stop 02/25/17 at 12:44 Potassium Chloride 50 ml @ 50 mls/hr Q1H IV ; Start 02/24/17 at 15:30; Stop at 15:30; Status DC Potassium Chloride 100 ml @ 100 mls/hr Q1H IV Last administered on 02/24/17 15 :27; Start 02/24/17 at 15:30; Stop 02/24/17 at 16:21; Status DC Albuterol Sulfate (Ventolin Neb Soln) 2.5 mg PRN Q2HR PRN NEB DYSPNEA Last administered on 02/24/17 19:57; Start 02/24/17 at 15:15 Albuterol/ Ipratropium (Duoneb) 3 ml RTQID NEB Last administered on 02/25/17 07:57; Start 02/24/17 at 16:00 Methylprednisolone Sodium Succinate (SOLU-Medrol 125MG VIAL) 80 mg BID IV ; Start 02/24/17 at 21:00; Stop 02/24/17 at 22:19; Status DC Montelukast Sodium (Singulair) 10 mg QHS PO ; Start 02/24/17 at 21:00; Stop at 21:00; Status DC Famotidine (Pepcid) 40 mg QHS IVP Last administered on 02/24/17 21:45; Start at 21:00 Potassium Chloride (Klor-Con) 30 meq 1X ONCE PO Last administered on 02/24/17 17:24; Start 02/24/17 at 16:45; Stop 02/24/17 at 16:46; Status DC Insulin Aspart (NovoLOG) 13 units TIDAC SQ ; Start 02/25/17 at 07:30 Lubiprostone (Amitiza) 24 mcg BIDWMEALS PO ; Start 02/25/17 at 08:00 Montelukast Sodium (Singulair) 10 mg HS PO Last administered on 02/24/17 21:45 ; Start 02/24/17 at 21:00 Cyclobenzaprine HCl (Flexeril) 5 mg TID PO Last administered on 02/24/17 22:28 ; Start 02/24/17 at 21:00 Dicyclomine HCl (Bentyl) 20 mg TID PO Last administered on 02/24/17 21:46; Start 02/24/17 at 21:00 Simvastatin (Zocor) 10 mg QHS PO Last administered on 02/24/17 22:28; Start 02/24/17 at 21:00 Non-Formulary Medication 1 each BID94 IH ; Start 02/25/17 at 09:00; Status UNV Insulin Detemir (Levemir) 22 units QHS SQ ; Start 02/24/17 at 21:00; Stop at 22:19; Status DC Insulin Detemir (Levemir) 44 units DAILY08 SQ ; Start 02/25/17 at 08:00 Meclizine HCl (Antivert) 25 mg PRN TID PRN PO DIZZINESS; Start 02/24/17 at 21:00 Guaifenesin (Robitussin Dm) 10 ml PRN Q4HRS PRN PO COUGH; Start 02/24/17 at 21: 00 Lorazepam (Ativan) 0.5 mg PRN Q6HRS PRN PO ANXIETY / AGITATION Last administered on 02/24/17 21:46; Start 02/24/17 at 21:00 EZETIMIBE (Zetia) 10 mg QHS PO Last administered on 02/24/17 21:45; Start at 21:00 Budesonide (Pulmicort) 0.5 mg RTBID NEB Last administered on 02/25/17 07:57; Start 02/25/17 at 08:00 Dextrose (Dextrose 50%-Water Syringe) 12.5 gm PRN Q15MIN PRN IV SEE COMMENTS; Start 02/24/17 at 21:45 Insulin Detemir (Levemir) 30 units QHS SQ Last administered on 02/24/17 22:45; Start 02/24/17 at 23:00 Methylprednisolone Sodium Succinate (SOLU-Medrol 125MG VIAL) 60 mg BID IV Last administered on 02/24/17 22:58; Start 02/24/17 at 23:00 Diphenhydramine HCl (Benadryl) 25 mg BID IVP Last administered on 02/24/17 22: 31; Start 02/24/17 at 23:00 Insulin Aspart (NovoLOG) 20 units 1X ONCE SQ Last administered on 02/24/17 22: 46; Start 02/24/17 at 23:00; Stop 02/24/17 at 23:01; Status DC Acetaminophen/ Hydrocodone Bitart (Lortab 5/325) 1 tab PRN Q6HRS PRN PO MODERATE PAIN Last administered on 02/25/17 02:58; Start 02/25/17 at 02:45 Zolpidem Tartrate (Ambien) 5 mg PRN QHS PRN PO INSOMNIA; Start 02/25/17 at 08: 15 Amlodipine Besylate (Norvasc) 5 mg DAILY PO ; Start 02/25/17 at 09:00; Status UNV Lisinopril (Prinivil) 20 mg DAILY PO ; Start 02/25/17 at 09:00; Status UNV Metoprolol Succinate (Toprol Xl) 25 mg DAILY PO ; Start 02/25/17 at 09:00; Status UNV Pantoprazole Sodium (Protonix) 40 mg DAILYAC PO ; Start 02/26/17 at 07:30; Status UNV Warfarin Sodium (Coumadin) 10 mg DAILY PO ; Start 02/25/17 at 09:00; Status UNV Non-Formulary Medication 90 mg DAILY PO ; Start 02/25/17 at 09:00; Status UNV Active Scripts Active Pantoprazole Sodium 40 Mg Tablet.dr 40 Mg PO DAILYAC Zofran (Ondansetron Hcl) 4 Mg Tablet 4 Mg PO BID PRN Cyclobenzaprine Hcl 5 Mg Tablet 5 Mg PO TID Benadryl (Diphenhydramine Hcl) 25 Mg Capsule 25 Mg PO PRN Q4HRS PRN [Ipratropium/Albuterol Sulfate] 3 ML Nebu 3 Ml NEB RTQID [Guaifenesin/Dextromethorphan] 10 ML Syrup 10 Ml PO PRN Q4HRS PRN Reported Levemir (Insulin Detemir) 100 Unit/1 Ml Vial 22 Unit SQ HS Novolog Flexpen (Insulin Aspart) 100 Unit/1 Ml Insuln.pen 13 Unit SQ TIDAC Coumadin (Warfarin Sodium) 10 Mg Tablet 10 Mg PO DAILY Levemir (Insulin Detemir) 100 Unit/1 Ml Vial 44 Unit SQ DAILY08 Dicyclomine Hcl 20 Mg Tablet 1 Tab PO TID Amlodipine Besylate 5 Mg Tablet 1 Tab PO DAILY Metoprolol Succinate ( Xl ) (Metoprolol Succinate) 25 Mg Tab.er.24h 1 Tab PO DAILY Vytorin 10-10 Mg Tablet (Ezetimibe/Simvastatin) 1 Each Tablet 1 Each PO HS Xopenex Hfa (Levalbuterol Tartrate) 15 Gm Hfa.aer.ad 15 Gm IH PRN BID PRN Spiriva (Tiotropium [place]) 18 Mcg Cap.w.dev 18 Mcg IH DAILY Advair 250-50 Diskus (Fluticasone/Salmeterol) 1 Each Disk.w.dev 1 Each IH BID94 Cymbalta (Duloxetine Hcl) 60 Mg Capsule.dr 90 Mg PO DAILY Singulair Tablet (Montelukast Sodium) 10 Mg Tablet 10 Mg PO HS Lisinopril 40 Mg Tablet 20 Mg PO DAILY Allergies Allergies: Coded Allergies: Penicillins (Verified Allergy, Intermediate, itching, dry mouth, tongue swells, 12/16/15) Sulfa (Sulfonamide Antibiotics) (Verified Allergy, Intermediate, ITCHING DRY MOUTH, hives/swelling, 12/16/15) fentanyl (Verified Allergy, Intermediate, 12/16/15) hydromorphone HCl (Verified Allergy, Intermediate, MORPHINE OK, 12/16/15) methylprednisolone (Verified Allergy, Intermediate, RED MAN SYNDROME, 10/11) prednisone (Verified Allergy, Intermediate, RED MED SYNDROME, 10/11/16) I S O L A T I O N *CONTACT* (Verified Allergy, Unknown, 02/04/17) mrsa oxycodone HCl (Verified Adverse Reaction, Intermediate, "i FEEL LIKE I HAVE WORMS IN ME", 12/16/15) 06/28 TOLERATING HYDROCODONE/APAP ROS General: YES: Other (Denies fever or chills) PSYCHOLOGICAL ROS: YES: Other (some chronic anxiety ) HEENT: YES: Heacaches Hematological and Lymphatic: YES: Other (on same dose of Coumadin for years, hasn't had INR checked for over a month) Respiratory: YES: Other (using her CPAP at home nightly without problems) Cardiovascular: yes Other (denies chest pain) Gastrointestinal: Yes Other (denies constipation or diarrhea, feels bowels have been doing better since Dr Castro advised her to try a gluten-free diet) Physical Exam General: Alert, Oriented X3, No acute distress HEENT: PERRLA, EOMI Lungs: Other (BS decreased throughout but otherwise CTA, no wheezes heard) Heart: S1S2, no murmurs Abdomen: Normal bowel sounds, Soft, No tenderness Extremities: No edema Vitals Vitals Vital Signs Date Time Temp Pulse Resp B/P (MAP) Pulse Ox O2 Delivery O2 Flow Rate FiO2 02/25/17 08:00 95 Room Air 02/25/17 07:00 97.5 88 17 147/71 (96) 2.0 97.5 Labs Labs Laboratory Tests Test 02/24/17 12:19 02/24/17 12:55 02/24/17 21:42 02/25/17 02:33 O2 Saturation 96 % (92-99) Arterial Blood pH 7.39 (7.35-7.45) Arterial Blood pCO2 at Patient Temp 38 mmHg (35-46) Arterial Blood pO2 at Patient Temp 89 mmHg (65-108) Arterial Blood HCO3 22 mmol/L (21-28) Arterial Blood Base Excess -2 mmol/L (-3-3) Oxyhemoglobin 95.2 % Methemoglobin 0.5 % (0.0-1.9) Carbon Monoxide, Quantitative 0.3 % (0.0-1.9) FiO2 21 White Blood Count 9.8 x10^3/uL (4.0-11.0) Red Blood Count 4.70 x10^6/uL (3.50-5.40) Hemoglobin 13.5 g/dL (12.0-15.5) Hematocrit 40.2 % (36.0-47.0) Mean Corpuscular Volume 86 fL (79-100) Mean Corpuscular Hemoglobin 29 pg (25-35) Mean Corpuscular Hemoglobin Concent 34 g/dL (31-37) Red Cell Distribution Width 15.3 % (11.5-14.5) Platelet Count 274 x10^3/uL (140-400) Neutrophils (%) (Auto) 45 % (31-73) Lymphocytes (%) (Auto) 46 % (24-48) Monocytes (%) (Auto) 7 % (0-9) Eosinophils (%) (Auto) 2 % (0-3) Basophils (%) (Auto) 1 % (0-3) Neutrophils # (Auto) 4.4 x10^3uL (1.8-7.7) Lymphocytes # (Auto) 4.5 x10^3/uL (1.0-4.8) Monocytes # (Auto) 0.6 x10^3/uL (0.0-1.1) Eosinophils # (Auto) 0.2 x10^3/uL (0.0-0.7) Basophils # (Auto) 0.0 x10^3/uL (0.0-0.2) Sodium Level 135 mmol/L (136-145) Potassium Level 3.0 mmol/L (3.5-5.1) Chloride Level 96 mmol/L (98-107) Carbon Dioxide Level 24 mmol/L (21-32) Anion Gap 15 (6-14) Blood Urea Nitrogen 11 mg/dL (7-20) Creatinine 0.9 mg/dL (0.6-1.0) Estimated GFR (Cockcroft-Gault) 62.8 BUN/Creatinine Ratio 12 (6-20) Glucose Level 361 mg/dL (70-99) 629 mg/dL (70-99) Calcium Level 9.1 mg/dL (8.5-10.1) Magnesium Level 1.7 mg/dL (1.8-2.4) Total Bilirubin 0.3 mg/dL (0.2-1.0) Aspartate Amino Transf (AST/SGOT) 21 U/L (15-37) Alanine Aminotransferase (ALT/SGPT) 23 U/L (14-59) Alkaline Phosphatase 141 U/L (46-116) Troponin I Quantitative < 0.017 ng/mL (0.000-0.055) [id number]-[id number]-Type Natriuretic Peptide 32 pg/mL (0-124) Total Protein 7.0 g/dL (6.4-8.2) Albumin 3.3 g/dL (3.4-5.0) Albumin/Globulin Ratio 0.9 (1.0-1.7) Glucose (Fingerstick) 445 mg/dL (70-99) Test 02/25/17 04:40 02/25/17 07:10 White Blood Count 10.4 x10^3/uL (4.0-11.0) Red Blood Count 4.37 x10^6/uL (3.50-5.40) Hemoglobin 12.5 g/dL (12.0-15.5) Hematocrit 37.5 % (36.0-47.0) Mean Corpuscular Volume 86 fL (79-100) Mean Corpuscular Hemoglobin 29 pg (25-35) Mean Corpuscular Hemoglobin Concent 34 g/dL (31-37) Red Cell Distribution Width 15.5 % (11.5-14.5) Platelet Count 301 x10^3/uL (140-400) Neutrophils (%) (Auto) 85 % (31-73) Lymphocytes (%) (Auto) 13 % (24-48) Monocytes (%) (Auto) 1 % (0-9) Eosinophils (%) (Auto) 0 % (0-3) Basophils (%) (Auto) 0 % (0-3) Neutrophils # (Auto) 8.8 x10^3uL (1.8-7.7) Lymphocytes # (Auto) 1.3 x10^3/uL (1.0-4.8) Monocytes # (Auto) 0.1 x10^3/uL (0.0-1.1) Eosinophils # (Auto) 0.0 x10^3/uL (0.0-0.7) Basophils # (Auto) 0.0 x10^3/uL (0.0-0.2) Segmented Neutrophils % 87 % (35-66) Band Neutrophils % 4 % (0-9) Lymphocytes % 7 % (24-48) Monocytes % 1 % (0-10) Basophils % 1 % (0-3) Platelet Estimate Adequate (ADEQUATE) Sodium Level 127 mmol/L (136-145) Potassium Level 4.7 mmol/L (3.5-5.1) Chloride Level 93 mmol/L (98-107) Carbon Dioxide Level 23 mmol/L (21-32) Anion Gap 11 (6-14) Blood Urea Nitrogen 16 mg/dL (7-20) Creatinine 0.8 mg/dL (0.6-1.0) Estimated GFR (Cockcroft-Gault) 72.0 Glucose Level 460 mg/dL (70-99) Calcium Level 8.8 mg/dL (8.5-10.1) Glucose (Fingerstick) 423 mg/dL (70-99) Laboratory Tests Test 02/24/17 12:19 02/24/17 12:55 02/24/17 21:42 02/25/17 02:33 O2 Saturation 96 % (92-99) Arterial Blood pH 7.39 (7.35-7.45) Arterial Blood pCO2 at Patient Temp 38 mmHg (35-46) Arterial Blood pO2 at Patient Temp 89 mmHg (65-108) Arterial Blood HCO3 22 mmol/L (21-28) Arterial Blood Base Excess -2 mmol/L (-3-3) Oxyhemoglobin 95.2 % Methemoglobin 0.5 % (0.0-1.9) Carbon Monoxide, Quantitative 0.3 % (0.0-1.9) FiO2 21 White Blood Count 9.8 x10^3/uL (4.0-11.0) Red Blood Count 4.70 x10^6/uL (3.50-5.40) Hemoglobin 13.5 g/dL (12.0-15.5) Hematocrit 40.2 % (36.0-47.0) Mean Corpuscular Volume 86 fL (79-100) Mean Corpuscular Hemoglobin 29 pg (25-35) Mean Corpuscular Hemoglobin Concent 34 g/dL (31-37) Red Cell Distribution Width 15.3 % (11.5-14.5) Platelet Count 274 x10^3/uL (140-400) Neutrophils (%) (Auto) 45 % (31-73) Lymphocytes (%) (Auto) 46 % (24-48) Monocytes (%) (Auto) 7 % (0-9) Eosinophils (%) (Auto) 2 % (0-3) Basophils (%) (Auto) 1 % (0-3) Neutrophils # (Auto) 4.4 x10^3uL (1.8-7.7) Lymphocytes # (Auto) 4.5 x10^3/uL (1.0-4.8) Monocytes # (Auto) 0.6 x10^3/uL (0.0-1.1) Eosinophils # (Auto) 0.2 x10^3/uL (0.0-0.7) Basophils # (Auto) 0.0 x10^3/uL (0.0-0.2) Sodium Level 135 mmol/L (136-145) Potassium Level 3.0 mmol/L (3.5-5.1) Chloride Level 96 mmol/L (98-107) Carbon Dioxide Level 24 mmol/L (21-32) Anion Gap 15 (6-14) Blood Urea Nitrogen 11 mg/dL (7-20) Creatinine 0.9 mg/dL (0.6-1.0) Estimated GFR (Cockcroft-Gault) 62.8 BUN/Creatinine Ratio 12 (6-20) Glucose Level 361 mg/dL (70-99) 629 mg/dL (70-99) Calcium Level 9.1 mg/dL (8.5-10.1) Magnesium Level 1.7 mg/dL (1.8-2.4) Total Bilirubin 0.3 mg/dL (0.2-1.0) Aspartate Amino Transf (AST/SGOT) 21 U/L (15-37) Alanine Aminotransferase (ALT/SGPT) 23 U/L (14-59) Alkaline Phosphatase 141 U/L (46-116) Troponin I Quantitative < 0.017 ng/mL (0.000-0.055) JR-[id number]-F-Type Natriuretic Peptide 32 pg/mL (0-124) Total Protein 7.0 g/dL (6.4-8.2) Albumin 3.3 g/dL (3.4-5.0) Albumin/Globulin Ratio 0.9 (1.0-1.7) Glucose (Fingerstick) 445 mg/dL (70-99) Test 02/25/17 04:40 02/25/17 07:10 White Blood Count 10.4 x10^3/uL (4.0-11.0) Red Blood Count 4.37 x10^6/uL (3.50-5.40) Hemoglobin 12.5 g/dL (12.0-15.5) Hematocrit 37.5 % (36.0-47.0) Mean Corpuscular Volume 86 fL (79-100) Mean Corpuscular Hemoglobin 29 pg (25-35) Mean Corpuscular Hemoglobin Concent 34 g/dL (31-37) Red Cell Distribution Width 15.5 % (11.5-14.5) Platelet Count 301 x10^3/uL (140-400) Neutrophils (%) (Auto) 85 % (31-73) Lymphocytes (%) (Auto) 13 % (24-48) Monocytes (%) (Auto) 1 % (0-9) Eosinophils (%) (Auto) 0 % (0-3) Basophils (%) (Auto) 0 % (0-3) Neutrophils # (Auto) 8.8 x10^3uL (1.8-7.7) Lymphocytes # (Auto) 1.3 x10^3/uL (1.0-4.8) Monocytes # (Auto) 0.1 x10^3/uL (0.0-1.1) Eosinophils # (Auto) 0.0 x10^3/uL (0.0-0.7) Basophils # (Auto) 0.0 x10^3/uL (0.0-0.2) Segmented Neutrophils % 87 % (35-66) Band Neutrophils % 4 % (0-9) Lymphocytes % 7 % (24-48) Monocytes % 1 % (0-10) Basophils % 1 % (0-3) Platelet Estimate Adequate (ADEQUATE) Sodium Level 127 mmol/L (136-145) Potassium Level 4.7 mmol/L (3.5-5.1) Chloride Level 93 mmol/L (98-107) Carbon Dioxide Level 23 mmol/L (21-32) Anion Gap 11 (6-14) Blood Urea Nitrogen 16 mg/dL (7-20) Creatinine 0.8 mg/dL (0.6-1.0) Estimated GFR (Cockcroft-Gault) 72.0 Glucose Level 460 mg/dL (70-99) Calcium Level 8.8 mg/dL (8.5-10.1) Glucose (Fingerstick) 423 mg/dL (70-99) VTE Prophylaxis Ordered VTE Prophylaxis Devices: Yes VTE Pharmacological Prophylaxi: Yes Assessment/Plan Assessment/Plan 1. Acute exacerbation of asthma - patient's symptoms are much improved today. Continue Solumedrol (at lower dose), nebs, etc. Not hypoxic on RA. 2. DM2 with hyperglycemia - blood sugars are significantly elevated due to the high dose of Solumedrol she received in the ER. Increase insulins and follow. 3. HTN - continue home meds. 4. anticoagulation - INR was not checked at admission, lab ordered, continue Coumadin and adjust dose as indicated. 5. chronic anxiety - stable, continue present meds. 6. JESI - patient advised to have family bring her CPAP from home for her to use while here. 7. hyponatremia - unusual for her. Not on IVF. Recheck in AM. NIKO GIBBONS MD Feb 25, 2017 08:38
[2017-02-25] MEDS ORDERED: NON FORMULARY ITEM (Fluticasone/Salmeterol (Advair 250-50 Diskus) 1 EACH) IH SCH (09:00)
[2017-02-25 09:14] LABS: INR 1.9 (0.8-1.1); PROTHROMBIN TIME PATIENT 20.2 SEC (11.7-14.0)
[2017-02-25] MEDS: ALBUTEROL SULFATE 2.5 MG/3 ML NEBU. NEB PRN (10:15)
[2017-02-25 10:49] VITALS: BP 122/65
[2017-02-25] MEDS: amLODIPine BESYLATE 5 MG TABLET PO SCH (12:13)
[2017-02-25] MEDS: METOPROLOL SUCC 24HR ER 25 MG TAB.ER.24H. PO SCH (12:14)
[2017-02-25] MEDS: PANTOPRAZOLE 40 MG TABLET.DR. PO SCH (12:14)
[2017-02-25] MEDS: LISINOPRIL 40 MG TABLET. PO SCH (12:14)
[2017-02-25] MEDS: DULoxetine HCL 30 MG CAPSULE.DR PO SCH (12:14)
--- NOTE | 2017-02-25 12:20 | PDOC ---
PULMONARY PROGRESS NOTES Subjective FEELS BETTER Vitals Vital Signs Date Time Temp Pulse Resp B/P (MAP) Pulse Ox O2 Delivery O2 Flow Rate FiO2 02/25/17 10:49 97.7 100 17 122/65 (84) 93 Nasal Cannula 2.0 97.7 General: Alert, Oriented X4, No acute distress HEENT: Other Lungs: Clear Cardiovascular: S1 Abdomen: Soft, Non-tender Extremities: No Edema, Other Skin: Warm Labs Laboratory Tests Test 02/24/17 12:19 02/24/17 12:55 02/24/17 21:42 02/25/17 02:33 O2 Saturation 96 % (92-99) Arterial Blood pH 7.39 (7.35-7.45) Arterial Blood pCO2 at Patient Temp 38 mmHg (35-46) Arterial Blood pO2 at Patient Temp 89 mmHg (65-108) Arterial Blood HCO3 22 mmol/L (21-28) Arterial Blood Base Excess -2 mmol/L (-3-3) Oxyhemoglobin 95.2 % Methemoglobin 0.5 % (0.0-1.9) Carbon Monoxide, Quantitative 0.3 % (0.0-1.9) FiO2 21 White Blood Count 9.8 x10^3/uL (4.0-11.0) Red Blood Count 4.70 x10^6/uL (3.50-5.40) Hemoglobin 13.5 g/dL (12.0-15.5) Hematocrit 40.2 % (36.0-47.0) Mean Corpuscular Volume 86 fL (79-100) Mean Corpuscular Hemoglobin 29 pg (25-35) Mean Corpuscular Hemoglobin Concent 34 g/dL (31-37) Red Cell Distribution Width 15.3 % (11.5-14.5) Platelet Count 274 x10^3/uL (140-400) Neutrophils (%) (Auto) 45 % (31-73) Lymphocytes (%) (Auto) 46 % (24-48) Monocytes (%) (Auto) 7 % (0-9) Eosinophils (%) (Auto) 2 % (0-3) Basophils (%) (Auto) 1 % (0-3) Neutrophils # (Auto) 4.4 x10^3uL (1.8-7.7) Lymphocytes # (Auto) 4.5 x10^3/uL (1.0-4.8) Monocytes # (Auto) 0.6 x10^3/uL (0.0-1.1) Eosinophils # (Auto) 0.2 x10^3/uL (0.0-0.7) Basophils # (Auto) 0.0 x10^3/uL (0.0-0.2) Sodium Level 135 mmol/L (136-145) Potassium Level 3.0 mmol/L (3.5-5.1) Chloride Level 96 mmol/L (98-107) Carbon Dioxide Level 24 mmol/L (21-32) Anion Gap 15 (6-14) Blood Urea Nitrogen 11 mg/dL (7-20) Creatinine 0.9 mg/dL (0.6-1.0) Estimated GFR (Cockcroft-Gault) 62.8 BUN/Creatinine Ratio 12 (6-20) Glucose Level 361 mg/dL (70-99) 629 mg/dL (70-99) Calcium Level 9.1 mg/dL (8.5-10.1) Magnesium Level 1.7 mg/dL (1.8-2.4) Total Bilirubin 0.3 mg/dL (0.2-1.0) Aspartate Amino Transf (AST/SGOT) 21 U/L (15-37) Alanine Aminotransferase (ALT/SGPT) 23 U/L (14-59) Alkaline Phosphatase 141 U/L (46-116) Troponin I Quantitative < 0.017 ng/mL (0.000-0.055) HA-Zzy-O-Type Natriuretic Peptide 32 pg/mL (0-124) Total Protein 7.0 g/dL (6.4-8.2) Albumin 3.3 g/dL (3.4-5.0) Albumin/Globulin Ratio 0.9 (1.0-1.7) Glucose (Fingerstick) 445 mg/dL (70-99) Test 02/25/17 04:40 02/25/17 07:10 02/25/17 08:50 02/25/17 10:26 White Blood Count 10.4 x10^3/uL (4.0-11.0) Red Blood Count 4.37 x10^6/uL (3.50-5.40) Hemoglobin 12.5 g/dL (12.0-15.5) Hematocrit 37.5 % (36.0-47.0) Mean Corpuscular Volume 86 fL (79-100) Mean Corpuscular Hemoglobin 29 pg (25-35) Mean Corpuscular Hemoglobin Concent 34 g/dL (31-37) Red Cell Distribution Width 15.5 % (11.5-14.5) Platelet Count 301 x10^3/uL (140-400) Neutrophils (%) (Auto) 85 % (31-73) Lymphocytes (%) (Auto) 13 % (24-48) Monocytes (%) (Auto) 1 % (0-9) Eosinophils (%) (Auto) 0 % (0-3) Basophils (%) (Auto) 0 % (0-3) Neutrophils # (Auto) 8.8 x10^3uL (1.8-7.7) Lymphocytes # (Auto) 1.3 x10^3/uL (1.0-4.8) Monocytes # (Auto) 0.1 x10^3/uL (0.0-1.1) Eosinophils # (Auto) 0.0 x10^3/uL (0.0-0.7) Basophils # (Auto) 0.0 x10^3/uL (0.0-0.2) Segmented Neutrophils % 87 % (35-66) Band Neutrophils % 4 % (0-9) Lymphocytes % 7 % (24-48) Monocytes % 1 % (0-10) Basophils % 1 % (0-3) Platelet Estimate Adequate (ADEQUATE) Sodium Level 127 mmol/L (136-145) Potassium Level 4.7 mmol/L (3.5-5.1) Chloride Level 93 mmol/L (98-107) Carbon Dioxide Level 23 mmol/L (21-32) Anion Gap 11 (6-14) Blood Urea Nitrogen 16 mg/dL (7-20) Creatinine 0.8 mg/dL (0.6-1.0) Estimated GFR (Cockcroft-Gault) 72.0 Glucose Level 460 mg/dL (70-99) Calcium Level 8.8 mg/dL (8.5-10.1) Glucose (Fingerstick) 423 mg/dL (70-99) 482 mg/dL (70-99) Prothrombin Time 20.2 SEC (11.7-14.0) Prothromb Time International Ratio 1.9 (0.8-1.1) Test 02/25/17 11:25 Glucose (Fingerstick) 517 mg/dL (70-99) Laboratory Tests Test 02/24/17 12:19 02/24/17 12:55 02/24/17 21:42 02/25/17 02:33 O2 Saturation 96 % (92-99) Arterial Blood pH 7.39 (7.35-7.45) Arterial Blood pCO2 at Patient Temp 38 mmHg (35-46) Arterial Blood pO2 at Patient Temp 89 mmHg (65-108) Arterial Blood HCO3 22 mmol/L (21-28) Arterial Blood Base Excess -2 mmol/L (-3-3) Oxyhemoglobin 95.2 % Methemoglobin 0.5 % (0.0-1.9) Carbon Monoxide, Quantitative 0.3 % (0.0-1.9) FiO2 21 White Blood Count 9.8 x10^3/uL (4.0-11.0) Red Blood Count 4.70 x10^6/uL (3.50-5.40) Hemoglobin 13.5 g/dL (12.0-15.5) Hematocrit 40.2 % (36.0-47.0) Mean Corpuscular Volume 86 fL (79-100) Mean Corpuscular Hemoglobin 29 pg (25-35) Mean Corpuscular Hemoglobin Concent 34 g/dL (31-37) Red Cell Distribution Width 15.3 % (11.5-14.5) Platelet Count 274 x10^3/uL (140-400) Neutrophils (%) (Auto) 45 % (31-73) Lymphocytes (%) (Auto) 46 % (24-48) Monocytes (%) (Auto) 7 % (0-9) Eosinophils (%) (Auto) 2 % (0-3) Basophils (%) (Auto) 1 % (0-3) Neutrophils # (Auto) 4.4 x10^3uL (1.8-7.7) Lymphocytes # (Auto) 4.5 x10^3/uL (1.0-4.8) Monocytes # (Auto) 0.6 x10^3/uL (0.0-1.1) Eosinophils # (Auto) 0.2 x10^3/uL (0.0-0.7) Basophils # (Auto) 0.0 x10^3/uL (0.0-0.2) Sodium Level 135 mmol/L (136-145) Potassium Level 3.0 mmol/L (3.5-5.1) Chloride Level 96 mmol/L (98-107) Carbon Dioxide Level 24 mmol/L (21-32) Anion Gap 15 (6-14) Blood Urea Nitrogen 11 mg/dL (7-20) Creatinine 0.9 mg/dL (0.6-1.0) Estimated GFR (Cockcroft-Gault) 62.8 BUN/Creatinine Ratio 12 (6-20) Glucose Level 361 mg/dL (70-99) 629 mg/dL (70-99) Calcium Level 9.1 mg/dL (8.5-10.1) Magnesium Level 1.7 mg/dL (1.8-2.4) Total Bilirubin 0.3 mg/dL (0.2-1.0) Aspartate Amino Transf (AST/SGOT) 21 U/L (15-37) Alanine Aminotransferase (ALT/SGPT) 23 U/L (14-59) Alkaline Phosphatase 141 U/L (46-116) Troponin I Quantitative < 0.017 ng/mL (0.000-0.055) OK-Ads-P-Type Natriuretic Peptide 32 pg/mL (0-124) Total Protein 7.0 g/dL (6.4-8.2) Albumin 3.3 g/dL (3.4-5.0) Albumin/Globulin Ratio 0.9 (1.0-1.7) Glucose (Fingerstick) 445 mg/dL (70-99) Test 02/25/17 04:40 02/25/17 07:10 02/25/17 08:50 02/25/17 10:26 White Blood Count 10.4 x10^3/uL (4.0-11.0) Red Blood Count 4.37 x10^6/uL (3.50-5.40) Hemoglobin 12.5 g/dL (12.0-15.5) Hematocrit 37.5 % (36.0-47.0) Mean Corpuscular Volume 86 fL (79-100) Mean Corpuscular Hemoglobin 29 pg (25-35) Mean Corpuscular Hemoglobin Concent 34 g/dL (31-37) Red Cell Distribution Width 15.5 % (11.5-14.5) Platelet Count 301 x10^3/uL (140-400) Neutrophils (%) (Auto) 85 % (31-73) Lymphocytes (%) (Auto) 13 % (24-48) Monocytes (%) (Auto) 1 % (0-9) Eosinophils (%) (Auto) 0 % (0-3) Basophils (%) (Auto) 0 % (0-3) Neutrophils # (Auto) 8.8 x10^3uL (1.8-7.7) Lymphocytes # (Auto) 1.3 x10^3/uL (1.0-4.8) Monocytes # (Auto) 0.1 x10^3/uL (0.0-1.1) Eosinophils # (Auto) 0.0 x10^3/uL (0.0-0.7) Basophils # (Auto) 0.0 x10^3/uL (0.0-0.2) Segmented Neutrophils % 87 % (35-66) Band Neutrophils % 4 % (0-9) Lymphocytes % 7 % (24-48) Monocytes % 1 % (0-10) Basophils % 1 % (0-3) Platelet Estimate Adequate (ADEQUATE) Sodium Level 127 mmol/L (136-145) Potassium Level 4.7 mmol/L (3.5-5.1) Chloride Level 93 mmol/L (98-107) Carbon Dioxide Level 23 mmol/L (21-32) Anion Gap 11 (6-14) Blood Urea Nitrogen 16 mg/dL (7-20) Creatinine 0.8 mg/dL (0.6-1.0) Estimated GFR (Cockcroft-Gault) 72.0 Glucose Level 460 mg/dL (70-99) Calcium Level 8.8 mg/dL (8.5-10.1) Glucose (Fingerstick) 423 mg/dL (70-99) 482 mg/dL (70-99) Prothrombin Time 20.2 SEC (11.7-14.0) Prothromb Time International Ratio 1.9 (0.8-1.1) Test 02/25/17 11:25 Glucose (Fingerstick) 517 mg/dL (70-99) Medications Active Scripts Medications Dose Route/Sig Max Daily Dose Days Date Category Levemir (Insulin Detemir) 100 Unit/1 Ml Vial 22 Unit SQ HS 02/02/17 Reported Pantoprazole Sodium 40 Mg Tablet.dr 40 Mg PO DAILYAC 10/11/16 Rx Novolog Flexpen (Insulin Aspart) 100 Unit/1 Ml Insuln.pen 13 Unit SQ TIDAC 10/04/16 Reported Zofran (Ondansetron Hcl) 4 Mg Tablet 4 Mg PO BID PRN 04/18/16 Rx Cyclobenzaprine Hcl 5 Mg Tablet 5 Mg PO TID 02/25/16 Rx Benadryl (Diphenhydramine Hcl) 25 Mg Capsule 25 Mg PO PRN Q4HRS PRN 10/28/15 Rx Coumadin (Warfarin Sodium) 10 Mg Tablet 10 Mg PO DAILY 10/27/15 Reported Levemir (Insulin Detemir) 100 Unit/1 Ml Vial 44 Unit SQ DAILY08 10/25/15 Reported Dicyclomine Hcl 20 Mg Tablet 1 Tab PO TID 11/03/14 Reported Amlodipine Besylate 5 Mg Tablet 1 Tab PO DAILY 11/03/14 Reported Metoprolol Succinate ( Xl ) (Metoprolol Succinate) 25 Mg Tab.er.24h 1 Tab PO DAILY 11/03/14 Reported Vytorin 10-10 Mg Tablet (Ezetimibe/Simvastatin) 1 Each Tablet 1 Each PO HS 06/21/14 Reported [Ipratropium/Albuterol Sulfate] 3 ML Nebu 3 Ml NEB RTQID 06/02/14 Rx [Guaifenesin/Dextromethorphan] 10 ML Syrup 10 Ml PO PRN Q4HRS PRN 06/02/14 Rx Xopenex Hfa (Levalbuterol Tartrate) 15 Gm Hfa.aer.ad 15 Gm IH PRN BID PRN 09/02/13 Reported Spiriva (Tiotropium [place]) 18 Mcg Cap.w.dev 18 Mcg IH DAILY 09/02/13 Reported Advair 250-50 Diskus (Fluticasone/Salmeterol) 1 Each Disk.w.dev 1 Each IH BID94 09/02/13 Reported Cymbalta (Duloxetine Hcl) 60 Mg Capsule.dr 90 Mg PO DAILY 09/02/13 Reported Singulair Tablet (Montelukast Sodium) 10 Mg Tablet 10 Mg PO HS 08/17/13 Reported Lisinopril 40 Mg Tablet 20 Mg PO DAILY 08/17/13 Reported Impression . 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 STEROIDS WITH TAPER NEBS TAPER OXYGEN LIFE LONG COUMADIN HOME CPAP ABELINO CELESTIN MD Feb 25, 2017 12:20
--- NOTE | 2017-02-25 13:03 | PDOC4 ---
PROCEDURE Procedure Mr. grayson underwent spirometry at [facility] on 02/25/17 patient' s FVC was 2.93 which was 89% predicted. Patient's FEV1 was 2.51 which is 100% predicted. Patient's FEV1 is FVC ratio was normal. There was no response to bronchodilators. Impression 1. Normal spirometry 2. No response to bronchodilators. ABELINO CELESTIN MD Feb 25, 2017 13:03
[2017-02-25 14:57] VITALS: BP 117/62
[2017-02-25] MEDS ORDERED: diphenhydrAMINE HCL 25 MG CAPSULE PO PRN (16:00)
[2017-02-25] MEDS ORDERED: WARFARIN 10 MG TABLET. PO SCH (16:00)
[2017-02-25] MEDS: HYDROcodone/APAP 10/325 1 TAB TABLET PO PRN (18:16)
[2017-02-25 19:00] VITALS: BP 116/65
[2017-02-25] MEDS: MONTELUKAST SODIUM 10 MG TABLET. PO SCH (20:59)
[2017-02-25] MEDS: SIMVASTATIN 10 MG TABLET PO SCH (21:00)
[2017-02-25] MEDS ORDERED: FAMOTIDINE 20 MG TABLET. PO SCH (21:00)
[2017-02-25] MEDS: EZETIMIBE 10 MG TABLET. PO SCH (21:01)
[2017-02-25] MEDS: LORazepam 0.5 MG TABLET PO PRN (21:32)
[2017-02-25 23:00] VITALS: BP 120/61
[2017-02-26 03:00] VITALS: BP 120/51
[2017-02-26] MEDS: HYDROcodone/APAP 10/325 1 TAB TABLET PO PRN (03:39)
[2017-02-26 05:59] LABS: INR 1.7 (0.8-1.1); PROTHROMBIN TIME PATIENT 19.1 SEC (11.7-14.0)
[2017-02-26 06:15] LABS: CALCIUM 9.4 mg/dL (8.5-10.1); CREATININE 0.8 mg/dL (0.6-1.0); POTASSIUM 4.9 mmol/L (3.5-5.1)
[2017-02-26 07:00] VITALS: BP 128/57
[2017-02-26] MEDS: IPRATRPIUM/ALBUTEROL 0.5/2.5MG 3 ML NEBU. NEB SCH ×2 (07:11→11:05)
[2017-02-26] MEDS: BUDESONIDE 0.5 MG/2 ML NEBU. NEB SCH (07:11)
[2017-02-26] MEDS: LUBIPROSTONE 8 MCG CAPSULE PO SCH (08:00)
[2017-02-26] MEDS: CYCLOBENZAPRINE 10 MG TABLET. PO SCH (08:31)
[2017-02-26] MEDS: METOPROLOL SUCC 24HR ER 25 MG TAB.ER.24H. PO SCH (08:31)
[2017-02-26] MEDS: DICYCLOMINE HCL 10 MG CAPSULE PO SCH (08:31)
[2017-02-26] MEDS: PANTOPRAZOLE 40 MG TABLET.DR. PO SCH (08:31)
[2017-02-26] MEDS: LISINOPRIL 40 MG TABLET. PO SCH (08:31)
[2017-02-26] MEDS: DULoxetine HCL 30 MG CAPSULE.DR PO SCH (08:31)
[2017-02-26] MEDS: diphenhydrAMINE 50 MG/ML VIAL IVP SCH (08:32)
[2017-02-26] MEDS: methylPREDNISolone SOD SUCC PF 125 MG/2 ML VIAL. IV SCH (08:32)
[2017-02-26] MEDS: amLODIPine BESYLATE 5 MG TABLET PO SCH (08:34)
[2017-02-26] MEDS: INSULIN ASPART 300 UNITS/3 ML INSULN.PEN SQ SCH ×4 (08:44→12:07)
[2017-02-26] MEDS: INSULIN DETEMIR 300 UNITS/3 ML INSULN.PEN. SQ SCH (08:45)
--- NOTE | 2017-02-26 09:41 | PDOC3 ---
Discharge Summary* Date of Admission: Feb 24, 2017 Date of Discharge: Feb 26, 2017 Admitting Diagnosis Problems Medical Problems: (1) Acute asthma exacerbation Status: Acute Problems: Final Diagnosis Problems Medical Problems: (1) Acute asthma exacerbation Status: Acute 2. DM2 3. HTN 4. chronic anxiety 5. chronic anticoagulation 6. hyponatremia Brief Hospital Course Ms. Shah is a 66 old female with a long history of asthma who presented to the ER reporting shortness of breath that began earlier that day after walking outside briefly in the heat. She tried using her usual inhalers but symptoms persisted and she came to the ER. She was felt to be having some mild respiratory distress initially so Dr Lance was consulted. She was given a large dose of Solumedrol and admitted for further treatment. Patient's CXR at admission was unremarkable. She was not hypoxic. She was treated with Solumedrol and nebulized breathing treatments and had quick improvement in her symptoms with this. She is now breathing comfortably on room air and states she feels much better and is ready to go home. She does not feel she needs more steroids at this time. Patient has insulin-dependent diabetes. Her blood sugars were initially quite elevated due to the steroids and she was given more insulin for treatment of this. It is expected this will improve at home off of steroids. Her other chronic medical conditions including anxiety and hypertension were well controlled with her usual medications. She is on Coumadin long-term due to a history of PE's. Her INR was a little low but is usually therapeutic with her dose of 10mg daily and she was advised to continue this. Patient was noted to have some hyponatremia during this hospitalization with a sodium of 128 today. This will need to be rechecked as an outpatient as it is not usual for her. She does not appear to be on any new medications that could be causing this. Disposition/Orders: D/C to Home CONDITION AT DISCHARGE: Stable Scheduled Amlodipine Besylate (Amlodipine Besylate), 1 TAB PO DAILY, (Reported) Cyclobenzaprine Hcl (Cyclobenzaprine Hcl), 5 MG PO TID Dicyclomine Hcl (Dicyclomine Hcl), 1 TAB PO TID, (Reported) Duloxetine Hcl (Cymbalta), 90 MG PO DAILY, (Reported) Ezetimibe/Simvastatin (Vytorin 10-10 Mg Tablet), 1 EACH PO HS, (Reported) Fluticasone/Salmeterol (Advair 250-50 Diskus), 1 EACH IH BID94, (Reported) Insulin Aspart (Novolog Flexpen), 13 UNIT SQ TIDAC, (Reported) Insulin Detemir (Levemir), 44 UNIT SQ DAILY08, (Reported) Insulin Detemir (Levemir), 22 UNIT SQ HS, (Reported) Lisinopril (Lisinopril), 20 MG PO DAILY, (Reported) Metoprolol Succinate (Metoprolol Succinate ( Xl )), 1 TAB PO DAILY, (Reported) Montelukast Sodium (Singulair Tablet), 10 MG PO HS, (Reported) Pantoprazole Sodium (Pantoprazole Sodium), 40 MG PO DAILYAC Tiotropium Simon (Spiriva), 18 MCG IH DAILY, (Reported) Warfarin Sodium (Coumadin), 10 MG PO DAILY, (Reported) [Ipratropium/Albuterol Sulfate], 3 ML NEB RTQID Scheduled PRN Diphenhydramine Hcl (Benadryl), 25 MG PO PRN Q4HRS PRN for NAUSEA 2ND CHOICE Levalbuterol Tartrate (Xopenex Hfa), 15 GM IH PRN BID PRN for SHORTNESS OF BREATH, (Reported) Ondansetron Hcl (Zofran), 4 MG PO BID PRN for NAUSEA/VOMITING [Guaifenesin/Dextromethorphan], 10 ML PO PRN Q4HRS PRN for COUGH Discontinued Medications Lubiprostone (Amitiza), 24 MCG PO BIDWMEALS Meclizine Hcl (Meclizine Hcl), 1 TAB PO PRN TID Mupirocin (Mupirocin Ointment), 1 HOLLY NS BID Nystatin (Nystop), 1 HOLLY TP BID FOLLOW UP APPOINTMENT: Follow up with Dr Castro within two weeks. Time Spent Total time spent with patient [] minutes for coordination of care, counseling, and education. NIKO GIBBONS MD Feb 26, 2017 09:41
[2017-02-26 10:33] VITALS: BP 126/58
--- NOTE | 2017-02-26 12:36 | PDOC ---
PULMONARY PROGRESS NOTES Subjective FEELS BETTER Vitals Vital Signs Date Time Temp Pulse Resp B/P (MAP) Pulse Ox O2 Delivery O2 Flow Rate FiO2 02/26/17 11:07 92 Room Air 02/26/17 10:33 97.7 83 17 126/58 (80) 97.7 02/26/17 07:00 2.0 General: Alert, Oriented X4, No acute distress HEENT: Other Lungs: Clear Cardiovascular: S1 Abdomen: Soft, Non-tender Extremities: No Edema, Other Skin: Warm Labs Laboratory Tests Test 02/24/17 12:55 02/24/17 21:42 02/24/17 22:00 02/25/17 02:33 White Blood Count 9.8 x10^3/uL (4.0-11.0) Red Blood Count 4.70 x10^6/uL (3.50-5.40) Hemoglobin 13.5 g/dL (12.0-15.5) Hematocrit 40.2 % (36.0-47.0) Mean Corpuscular Volume 86 fL (79-100) Mean Corpuscular Hemoglobin 29 pg (25-35) Mean Corpuscular Hemoglobin Concent 34 g/dL (31-37) Red Cell Distribution Width 15.3 % (11.5-14.5) Platelet Count 274 x10^3/uL (140-400) Neutrophils (%) (Auto) 45 % (31-73) Lymphocytes (%) (Auto) 46 % (24-48) Monocytes (%) (Auto) 7 % (0-9) Eosinophils (%) (Auto) 2 % (0-3) Basophils (%) (Auto) 1 % (0-3) Neutrophils # (Auto) 4.4 x10^3uL (1.8-7.7) Lymphocytes # (Auto) 4.5 x10^3/uL (1.0-4.8) Monocytes # (Auto) 0.6 x10^3/uL (0.0-1.1) Eosinophils # (Auto) 0.2 x10^3/uL (0.0-0.7) Basophils # (Auto) 0.0 x10^3/uL (0.0-0.2) Sodium Level 135 mmol/L (136-145) Potassium Level 3.0 mmol/L (3.5-5.1) Chloride Level 96 mmol/L (98-107) Carbon Dioxide Level 24 mmol/L (21-32) Anion Gap 15 (6-14) Blood Urea Nitrogen 11 mg/dL (7-20) Creatinine 0.9 mg/dL (0.6-1.0) Estimated GFR (Cockcroft-Gault) 62.8 BUN/Creatinine Ratio 12 (6-20) Glucose Level 361 mg/dL (70-99) 629 mg/dL (70-99) Calcium Level 9.1 mg/dL (8.5-10.1) Magnesium Level 1.7 mg/dL (1.8-2.4) Total Bilirubin 0.3 mg/dL (0.2-1.0) Aspartate Amino Transf (AST/SGOT) 21 U/L (15-37) Alanine Aminotransferase (ALT/SGPT) 23 U/L (14-59) Alkaline Phosphatase 141 U/L (46-116) Troponin I Quantitative < 0.017 ng/mL (0.000-0.055) TL-Qih-G-Type Natriuretic Peptide 32 pg/mL (0-124) Total Protein 7.0 g/dL (6.4-8.2) Albumin 3.3 g/dL (3.4-5.0) Albumin/Globulin Ratio 0.9 (1.0-1.7) Nasal Screen MRSA (PCR) Positive (Negative) Glucose (Fingerstick) 445 mg/dL (70-99) Test 02/25/17 04:40 02/25/17 07:10 02/25/17 08:50 02/25/17 10:26 White Blood Count 10.4 x10^3/uL (4.0-11.0) Red Blood Count 4.37 x10^6/uL (3.50-5.40) Hemoglobin 12.5 g/dL (12.0-15.5) Hematocrit 37.5 % (36.0-47.0) Mean Corpuscular Volume 86 fL (79-100) Mean Corpuscular Hemoglobin 29 pg (25-35) Mean Corpuscular Hemoglobin Concent 34 g/dL (31-37) Red Cell Distribution Width 15.5 % (11.5-14.5) Platelet Count 301 x10^3/uL (140-400) Neutrophils (%) (Auto) 85 % (31-73) Lymphocytes (%) (Auto) 13 % (24-48) Monocytes (%) (Auto) 1 % (0-9) Eosinophils (%) (Auto) 0 % (0-3) Basophils (%) (Auto) 0 % (0-3) Neutrophils # (Auto) 8.8 x10^3uL (1.8-7.7) Lymphocytes # (Auto) 1.3 x10^3/uL (1.0-4.8) Monocytes # (Auto) 0.1 x10^3/uL (0.0-1.1) Eosinophils # (Auto) 0.0 x10^3/uL (0.0-0.7) Basophils # (Auto) 0.0 x10^3/uL (0.0-0.2) Segmented Neutrophils % 87 % (35-66) Band Neutrophils % 4 % (0-9) Lymphocytes % 7 % (24-48) Monocytes % 1 % (0-10) Basophils % 1 % (0-3) Platelet Estimate Adequate (ADEQUATE) Sodium Level 127 mmol/L (136-145) Potassium Level 4.7 mmol/L (3.5-5.1) Chloride Level 93 mmol/L (98-107) Carbon Dioxide Level 23 mmol/L (21-32) Anion Gap 11 (6-14) Blood Urea Nitrogen 16 mg/dL (7-20) Creatinine 0.8 mg/dL (0.6-1.0) Estimated GFR (Cockcroft-Gault) 72.0 Glucose Level 460 mg/dL (70-99) Calcium Level 8.8 mg/dL (8.5-10.1) Glucose (Fingerstick) 423 mg/dL (70-99) 482 mg/dL (70-99) Prothrombin Time 20.2 SEC (11.7-14.0) Prothromb Time International Ratio 1.9 (0.8-1.1) Test 02/25/17 11:25 02/25/17 16:41 02/25/17 20:42 02/25/17 21:23 Glucose (Fingerstick) 517 mg/dL (70-99) 387 mg/dL (70-99) 450 mg/dL (70-99) 465 mg/dL (70-99) Test 02/26/17 05:45 02/26/17 07:07 02/26/17 11:06 Prothrombin Time 19.1 SEC (11.7-14.0) Prothromb Time International Ratio 1.7 (0.8-1.1) Sodium Level 128 mmol/L (136-145) Potassium Level 4.9 mmol/L (3.5-5.1) Chloride Level 93 mmol/L (98-107) Carbon Dioxide Level 25 mmol/L (21-32) Anion Gap 10 (6-14) Blood Urea Nitrogen 20 mg/dL (7-20) Creatinine 0.8 mg/dL (0.6-1.0) Estimated GFR (Cockcroft-Gault) 72.0 Glucose Level 487 mg/dL (70-99) Calcium Level 9.4 mg/dL (8.5-10.1) Glucose (Fingerstick) 459 mg/dL (70-99) 434 mg/dL (70-99) Laboratory Tests Test 02/25/17 16:41 02/25/17 20:42 02/25/17 21:23 02/26/17 05:45 Glucose (Fingerstick) 387 mg/dL (70-99) 450 mg/dL (70-99) 465 mg/dL (70-99) Prothrombin Time 19.1 SEC (11.7-14.0) Prothromb Time International Ratio 1.7 (0.8-1.1) Sodium Level 128 mmol/L (136-145) Potassium Level 4.9 mmol/L (3.5-5.1) Chloride Level 93 mmol/L (98-107) Carbon Dioxide Level 25 mmol/L (21-32) Anion Gap 10 (6-14) Blood Urea Nitrogen 20 mg/dL (7-20) Creatinine 0.8 mg/dL (0.6-1.0) Estimated GFR (Cockcroft-Gault) 72.0 Glucose Level 487 mg/dL (70-99) Calcium Level 9.4 mg/dL (8.5-10.1) Test 02/26/17 07:07 02/26/17 11:06 Glucose (Fingerstick) 459 mg/dL (70-99) 434 mg/dL (70-99) Medications Active Scripts Medications Dose Route/Sig Max Daily Dose Days Date Category Levemir (Insulin Detemir) 100 Unit/1 Ml Vial 22 Unit SQ HS 02/02/17 Reported Pantoprazole Sodium 40 Mg Tablet.dr 40 Mg PO DAILYAC 10/11/16 Rx Novolog Flexpen (Insulin Aspart) 100 Unit/1 Ml Insuln.pen 13 Unit SQ TIDAC 10/04/16 Reported Zofran (Ondansetron Hcl) 4 Mg Tablet 4 Mg PO BID PRN 04/18/16 Rx Cyclobenzaprine Hcl 5 Mg Tablet 5 Mg PO TID 02/25/16 Rx Benadryl (Diphenhydramine Hcl) 25 Mg Capsule 25 Mg PO PRN Q4HRS PRN 10/28/15 Rx Coumadin (Warfarin Sodium) 10 Mg Tablet 10 Mg PO DAILY 10/27/15 Reported Levemir (Insulin Detemir) 100 Unit/1 Ml Vial 44 Unit SQ DAILY08 10/25/15 Reported Dicyclomine Hcl 20 Mg Tablet 1 Tab PO TID 11/03/14 Reported Amlodipine Besylate 5 Mg Tablet 1 Tab PO DAILY 11/03/14 Reported Metoprolol Succinate ( Xl ) (Metoprolol Succinate) 25 Mg Tab.er.24h 1 Tab PO DAILY 11/03/14 Reported Vytorin 10-10 Mg Tablet (Ezetimibe/Simvastatin) 1 Each Tablet 1 Each PO HS 06/21/14 Reported [Ipratropium/Albuterol Sulfate] 3 ML Nebu 3 Ml NEB RTQID 06/02/14 Rx [Guaifenesin/Dextromethorphan] 10 ML Syrup 10 Ml PO PRN Q4HRS PRN 06/02/14 Rx Xopenex Hfa (Levalbuterol Tartrate) 15 Gm Hfa.aer.ad 15 Gm IH PRN BID PRN 09/02/13 Reported Spiriva (Tiotropium [place]) 18 Mcg Cap.w.dev 18 Mcg IH DAILY 09/02/13 Reported Advair 250-50 Diskus (Fluticasone/Salmeterol) 1 Each Disk.w.dev 1 Each IH BID94 09/02/13 Reported Cymbalta (Duloxetine Hcl) 60 Mg Capsule.dr 90 Mg PO DAILY 09/02/13 Reported Singulair Tablet (Montelukast Sodium) 10 Mg Tablet 10 Mg PO HS 08/17/13 Reported Lisinopril 40 Mg Tablet 20 Mg PO DAILY 08/17/13 Reported Impression . 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 STEROIDS WITH TAPER NEBS TAPER OXYGEN LIFE LONG COUMADIN HOME CPAP OK WITH DC [place] ABELINO CELESTIN MD Feb 26, 2017 12:36
== END 2017-02-26 15:03 | disposition home or self-care (01) | DRG 202 ==
LOC: ER 11:45 → 1 WEST ICU 12:34 → 5 NORTH 21:27
PROVIDERS: ADMIT Family Medicine; ATTEND Family Medicine
DX: J45.901 Unspecified asthma with (acute) exacerbation (principal); E87.1 Hypo-osmolality and hyponatremia; E11.65 Type 2 diabetes mellitus with hyperglycemia; E78.00 Pure hypercholesterolemia, unspecified; F41.9 Anxiety disorder, unspecified; G47.33 Obstructive sleep apnea (adult) (pediatric); I10 Essential (primary) hypertension; I25.10 Atherosclerotic heart disease of native coronary artery without angina pectoris; J44.9 Chronic obstructive pulmonary disease, unspecified; K21.9 Gastro-esophageal reflux disease without esophagitis; F32.9 Major depressive disorder, single episode, unspecified; K58.9 Irritable bowel syndrome, unspecified; T38.0X5A Adverse effect of glucocorticoids and synthetic analogues, initial encounter; Z90.49 Acquired absence of other specified parts of digestive tract; Z90.710 Acquired absence of both cervix and uterus; Z79.899 Other long term (current) drug therapy; Z79.01 Long term (current) use of anticoagulants; Z79.4 Long term (current) use of insulin; Z88.0 Allergy status to penicillin; Z88.2 Allergy status to sulfonamides; Z88.8 Allergy status to other drugs, medicaments and biological substances; Z86.711 Personal history of pulmonary embolism; Z82.49 Family history of ischemic heart disease and other diseases of the circulatory system; Z82.5 Family history of asthma and other chronic lower respiratory diseases; Z83.3 Family history of diabetes mellitus
CPT/HCPCS: 36415; 36600; 71010; 80048; 80053; 82805; 82947; 82962; 83735; 83880; 84484; 85007; 85027; 85610; 87641; 93005; 94060; 94250; 94640; 96365; 96375; C1887; J1200; J1815; J2930; J3480; J7030; J7060; J7620; J7626; Q0163; S0028; 99291-25

== ENCOUNTER 2017-03-13 15:38 | Emergency (ER) | payer BC, OTHER ==
[~2017-03-13] VITALS: Ht 165.1 cm; Wt 117.9 kg
[2017-03-13 16:19] LABS: BASO % 0 % (0-3); EOS % 3 % (0-3); HEMATOCRIT 38.2 % (36.0-47.0); HEMOGLOBIN 13.5 g/dL (12.0-15.5); LYMPH # 2.6 x10^3/uL (1.0-4.8); LYMPH % 35 % (24-48); MEAN CORPUSCULAR HEMOGLOBIN 30 pg (25-35); MEAN CORPUSCULAR HGB CONC 35 g/dL (31-37); MEAN CORPUSCULAR VOLUME 85 fL (79-100); MONO % 7 % (0-9); NEUT % 55 % (31-73); PLATELET COUNT 256 x10^3/uL (140-400); RED BLOOD COUNT 4.52 x10^6/uL (3.50-5.40); RED CELL DISTRIBUTION WIDTH 14.8 % (11.5-14.5); WHITE BLOOD COUNT 7.5 x10^3/uL (4.0-11.0)
[2017-03-13 16:21] LABS: BILIRUBIN,URINE NEGATIVE (NEG); GLUCOSE,URINE NEGATIVE (NEG); NITRITE,URINE NEGATIVE (NEG); PROTEIN,URINE NEGATIVE (NEG-TRACE); UROBILINOGEN,URINE 0.2 mg/dL (0.2 mg/dL)
[2017-03-13 16:27] LABS: BACTERIA,URINE MODERATE /HPF (0-FEW); RBC,URINE 0 /HPF (0-2); SQUAMOUS EPITHELIAL CELL,UR MOD /LPF; WBC,URINE OCC /HPF (0-4)
[2017-03-13] MEDS ORDERED: MORPHINE SULFATE 4 MG/ML DISP.SYRIN. IV ONE ×2 (16:30→19:00)
[2017-03-13] MEDS ORDERED: ONDANSETRON PF 4 MG/2 ML VIAL. IV ONE (16:30)
[2017-03-13] MEDS ORDERED: IV NORMAL SALINE 1000ML BAG 1,000 ML IV ONE (16:30)
[2017-03-13 16:36] LABS: CALCIUM 9.2 mg/dL (8.5-10.1); CREATININE 0.9 mg/dL (0.6-1.0); GFR 62.8; POTASSIUM 4.3 mmol/L (3.5-5.1)
[2017-03-13 16:43] LABS: ALBUMIN 3.2 g/dL (3.4-5.0); ALBUMIN/GLOBULIN RATIO 0.8 (1.0-1.7); TOTAL BILIRUBIN 0.4 mg/dL (0.2-1.0); TOTAL PROTEIN 7.1 g/dL (6.4-8.2)
--- NOTE | 2017-03-13 16:52 | RAD ---
CT abdomen and pelvis without contrast 03/13/2017 Clinical indication: Right lower quadrant abdominal pain status post appendectomy. Comparison: CT abdomen and pelvis October 09, 2016 Technique: CT helical acquisition of the abdomen and pelvis without intravenous contrast according to standard protocol. Coronal and sagittal reformations were obtained. PQRS Compliance Statement: One or more of the following individualized dose reduction techniques were utilized for this examination: 1. Automated exposure control 2. Adjustment of the mA and/or kV according to patient size 3. Use of iterative reconstruction technique Findings: Abdomen and pelvis: Heart size is normal with partial visualization of coronary artery calcifications. Lung bases are clear. Evaluation of the solid abdominopelvic viscera, lymphadenopathy and vasculature is limited in the absence of intravenous contrast. Unenhanced contours of the liver, spleen, adrenal glands and pancreas and kidneys are within normal limits. Abdominal aorta is normal in caliber with mild calcified atheromatous disease. Prior cholecystectomy. No intra or extrahepatic biliary ductal dilatation. Small and large bowel loops are normal in caliber without obstruction. There are few scattered distal colonic diverticula without diverticulitis. No abdominal free fluid. No intra-abdominal loculated gas/fluid collection. There is diffuse rectus abdominis diastases and prior ventral hernia repair with mesh. Small hiatal hernia Mildly distended and unopacified urinary bladder grossly unremarkable. Prior hysterectomy the vaginal cuff within normal limits. No definite iliac or inguinal lymphadenopathy. No pelvic free fluid. There are a few ill-defined subcentimeter soft tissue opacities in the lower anterior abdominal subcutaneous tissues, likely injection sites. The graft there is multilevel degenerative disc disease of the lumbar spine greatest to severe degree at L4-L5 with disc space narrowing and endplate sclerosis. Impression: No noncontrast CT etiology for patient's right lower quadrant abdominal pain, specifically no bowel obstruction, ascites or loculated fluid collection.
[2017-03-13] MEDS ORDERED: TRAM-48 PO (18:11)
--- NOTE | 2017-03-13 18:12 | PHYS DOC ---
Past Medical History Past Medical History: Asthma, COPD, Diabetes-Type II, High Cholesterol, Hypertension, Migraines, MRSA, Other Additional Past Medical Histor: sleep apnea; PE, chronic abdominal pain Past Surgical History: Appendectomy, Cholecystectomy, Colectomy, Hysterectomy Additional Past Surgical Histo: breast biopsies; bx cataracts; bx shoulders; umbilical hernia Alcohol Use: None Drug Use: None Adult General Chief Complaint Chief Complaint: ABDOMINAL PAIN HPI HPI Patient is a 66 year old female who presents here today complaining of right lower quadrant abdominal pain that started this morning. Patient has a history significant for asthma, COPD, started sleep apnea, type 1 diabetes, hypertension. Patient has any liver stroke kidney or heart problems in the past. Patient reports she's had multiple hernia repairs in the past. Patient status post cholecystectomy, colectomy, status post appendectomy and a total bowel hysterectomy. Patient has any fevers shakes chills nausea vomiting diarrhea cough dysuria frequency urgency or hematuria. Patient playing lower back pain however she reports that is not new and is a chronic condition for her. Constitutional: Denies fever or chills [] Eyes: Denies change in visual acuity, redness, or eye pain [] HENT: Denies nasal congestion or sore throat [] All other review systems are negative except as documented in the history of present illness portion. Constitutional: Well developed, well nourished, no acute distress, non-toxic appearance. [] HENT: Normocephalic, atraumatic, bilateral external ears normal, oropharynx moist, no oral exudates, nose normal. [] Eyes: no discharge. [] Neck: Normal range of motion, no tenderness, supple, no stridor. [] Cardiovascular:Heart rate regular rhythm, Lungs & Thorax: Bilateral breath sounds clear to auscultation [] Abdomen: Bowel sounds normal, soft, right lower quadrant tenderness, no masses, no pulsatile masses. [] Skin: Warm, dry, no erythema, no rash. [] Back: No tenderness, no CVA tenderness. [] Extremities: No tenderness, no cyanosis, no clubbing, ROM intact, no edema. [] Neurologic: Alert and oriented X 3, normal motor function, normal sensory function, no focal deficits noted. [] Psychologic: Affect normal, judgement normal, mood normal. [] Patient's ER workup was significant for normal labs. Patient normal CBC, chemistry, urinalysis. Patient's CT scan of her abdomen pelvis did not show any acute pathology. While in the ER the patient was given adequate analgesia and feels improved however she still having some discomfort in her right lower quadrant. I discussed all the results of the CT scan labs the patient and she feels comfortable with the plan to be discharged home at this time. Patient will follow-up with her primary care doctor for further evaluation and management. Assessment and plan Abdominal pain of unclear etiology. Patient's ER workup has been unremarkable for any acute pathology that would require further ER for inpatient evaluation at this time. Patient's abdomen is soft nondistended no rebound or guarding. Patient has no tenderness at McBurney's point. Patient has no [place] sign. Patient is status post appendectomy, cholecystectomy, total abdominal hysterectomy. Patient does not present with any signs or symptoms O be consistent with a surgical abdomen at this time. Patient has no kidney stones. Review of Systems Review of Systems Constitutional: Denies fever or chills [] Eyes: Denies change in visual acuity, redness, or eye pain [] HENT: Denies nasal congestion or sore throat [] Respiratory: Denies cough or shortness of breath [] Cardiovascular: No additional information not addressed in HPI [] GI: Denies abdominal pain, nausea, vomiting, bloody stools or diarrhea [] : Denies dysuria or hematuria [] Musculoskeletal: Denies back pain or joint pain [] Integument: Denies rash or skin lesions [] Neurologic: Denies headache, focal weakness or sensory changes [] Endocrine: Denies polyuria or polydipsia [] Current Medications Current Medications Current Medications Medications (Trade) Dose Ordered Sig/Irish Start Time Stop Time Status Last Admin Dose Admin Morphine Sulfate 4 mg 1X ONCE 03/13/17 16:30 03/13/17 16:31 DC 03/13/17 16:57 4 MG Ondansetron HCl (Zofran) 4 mg 1X ONCE 03/13/17 16:30 03/13/17 16:31 DC 03/13/17 16:56 4 MG Sodium Chloride 1,000 ml @ 1,000 mls/hr 1X ONCE 03/13/17 16:30 03/13/17 17:29 DC 03/13/17 16:55 1,000 MLS/HR Allergies Allergies Allergies Coded Allergies Type Severity Reaction Last Updated Verified Penicillins Allergy Intermediate itching, dry mouth, tongue swells 12/16/15 Yes Sulfa (Sulfonamide Antibiotics) Allergy Intermediate ITCHING DRY MOUTH, hives/ swelling 12/16/15 Yes fentanyl Allergy Intermediate 12/16/15 Yes hydromorphone HCl Allergy Intermediate MORPHINE OK 12/16/15 Yes methylprednisolone Allergy Intermediate RED MAN SYNDROME 10/11/16 Yes prednisone Allergy Intermediate RED MED SYNDROME 10/11/16 Yes I S O L A T I O N *CONTACT* Allergy Unknown 02/04/17 Yes oxycodone HCl Adverse Reaction Intermediate "i FEEL LIKE I HAVE WORMS IN ME" Yes Physical Exam Physical Exam Constitutional: Well developed, well nourished, no acute distress, non-toxic appearance. [] HENT: Normocephalic, atraumatic, bilateral external ears normal, oropharynx moist, no oral exudates, nose normal. [] Eyes: PERRLA, EOMI, conjunctiva normal, no discharge. [] Neck: Normal range of motion, no tenderness, supple, no stridor. [] Cardiovascular:Heart rate regular rhythm, no murmur [] Lungs & Thorax: Bilateral breath sounds clear to auscultation [] Abdomen: Bowel sounds normal, soft, no tenderness, no masses, no pulsatile masses. [] Skin: Warm, dry, no erythema, no rash. [] Back: No tenderness, no CVA tenderness. [] Extremities: No tenderness, no cyanosis, no clubbing, ROM intact, no edema. [] Neurologic: Alert and oriented X 3, normal motor function, normal sensory function, no focal deficits noted. [] Psychologic: Affect normal, judgement normal, mood normal. [] Current Patient Data Vital Signs Vital Signs Date Time Temp Pulse Resp B/P (MAP) Pulse Ox O2 Delivery O2 Flow Rate FiO2 03/13/17 16:57 20 Room Air 03/13/17 16:51 78 105/62 (76) 95 03/13/17 15:51 98.4 98.4 Lab Values Laboratory Tests Test 03/13/17 16:10 White Blood Count 7.5 x10^3/uL (4.0-11.0) Red Blood Count 4.52 x10^6/uL (3.50-5.40) Hemoglobin 13.5 g/dL (12.0-15.5) Hematocrit 38.2 % (36.0-47.0) Mean Corpuscular Volume 85 fL (79-100) Mean Corpuscular Hemoglobin 30 pg (25-35) Mean Corpuscular Hemoglobin Concent 35 g/dL (31-37) Red Cell Distribution Width 14.8 % (11.5-14.5) H Platelet Count 256 x10^3/uL (140-400) Neutrophils (%) (Auto) 55 % (31-73) Lymphocytes (%) (Auto) 35 % (24-48) Monocytes (%) (Auto) 7 % (0-9) Eosinophils (%) (Auto) 3 % (0-3) Basophils (%) (Auto) 0 % (0-3) Neutrophils # (Auto) 4.1 x10^3uL (1.8-7.7) Lymphocytes # (Auto) 2.6 x10^3/uL (1.0-4.8) Monocytes # (Auto) 0.5 x10^3/uL (0.0-1.1) Eosinophils # (Auto) 0.2 x10^3/uL (0.0-0.7) Basophils # (Auto) 0.0 x10^3/uL (0.0-0.2) Urine Collection Type Unknown Urine Color Yellow Urine Clarity Clear Urine pH 6.0 Urine Specific [place] 1.010 Urine Protein Negative mg/dL (NEG-TRACE) Urine Glucose (UA) Negative mg/dL (NEG) Urine Ketones (Stick) Negative mg/dL (NEG) Urine Blood Negative (NEG) Urine Nitrite Negative (NEG) Urine Bilirubin Negative (NEG) Urine Urobilinogen Dipstick 0.2 mg/dL (0.2 mg/dL) Urine Leukocyte Esterase Negative (NEG) Urine RBC 0 /HPF (0-2) Urine WBC Occ /HPF (0-4) Urine Squamous Epithelial Cells Mod /LPF Urine Bacteria Moderate /HPF (0-FEW) Sodium Level 134 mmol/L (136-145) L Potassium Level 4.3 mmol/L (3.5-5.1) Chloride Level 97 mmol/L (98-107) L Carbon Dioxide Level 28 mmol/L (21-32) Anion Gap 9 (6-14) Blood Urea Nitrogen 16 mg/dL (7-20) Creatinine 0.9 mg/dL (0.6-1.0) Estimated GFR (Cockcroft-Gault) 62.8 BUN/Creatinine Ratio 18 (6-20) Glucose Level 250 mg/dL (70-99) H Calcium Level 9.2 mg/dL (8.5-10.1) Total Bilirubin 0.4 mg/dL (0.2-1.0) Aspartate Amino Transferase (AST) 33 U/L (15-37) Alanine Aminotransferase (ALT) 21 U/L (14-59) Alkaline Phosphatase 134 U/L (46-116) H Total Protein 7.1 g/dL (6.4-8.2) Albumin 3.2 g/dL (3.4-5.0) L Albumin/Globulin Ratio 0.8 (1.0-1.7) L Lipase 195 U/L (73-393) Laboratory Tests 03/13/17 16:10 Laboratory Tests 03/13/17 16:10 EKG EKG [] Radiology/Procedures Radiology/Procedures [] Course & Med Decision Making Course & Med Decision Making Pertinent Labs and Imaging studies reviewed. (See chart for details) [] Dragon Disclaimer Dragon Disclaimer This electronic medical record was generated, in whole or in part, using a voice recognition dictation system. Departure Departure Impression: Primary Impression: Abdominal pain Disposition: 01 HOME, SELF-CARE Condition: IMPROVED Referrals: Meagan ALVAREZ MD (PCP) Patient Instructions: Abdominal Pain Scripts Tramadol Hcl (ULTRAM) 50 Mg Tablet 1 TAB PO Q6HRS, #14 TAB Prov: CARLOS SAINZ MD 03/13/17 CARLOS SAINZ MD Mar 13, 2017 18:12
[2017-03-13 18:33] VITALS: BP 109/65
== END 2017-03-13 18:57 | disposition home or self-care (01) ==
LOC: ER 15:38
DX: R10.31 Right lower quadrant pain (principal); G89.29 Other chronic pain; M54.5 Low back pain; J44.9 Chronic obstructive pulmonary disease, unspecified; I10 Essential (primary) hypertension; G47.30 Sleep apnea, unspecified; E78.00 Pure hypercholesterolemia, unspecified; E11.9 Type 2 diabetes mellitus without complications; G43.909 Migraine, unspecified, not intractable, without status migrainosus; Z86.14 Personal history of Methicillin resistant Staphylococcus aureus infection; Z86.711 Personal history of pulmonary embolism; Z90.49 Acquired absence of other specified parts of digestive tract; Z90.710 Acquired absence of both cervix and uterus; Z88.5 Allergy status to narcotic agent; Z88.8 Allergy status to other drugs, medicaments and biological substances; Z88.4 Allergy status to anesthetic agent; Z91.041 Radiographic dye allergy status; Z88.0 Allergy status to penicillin; Z88.2 Allergy status to sulfonamides
CPT/HCPCS: 36415; 74176; 80053; 81001; 83690; 85027; 87086; 96361; 96374; 96375; 96376; 99285; J2270; J2405; J7030

== ENCOUNTER 2017-03-14 19:24 | Emergency (ER) | payer BC, OTHER ==
[~2017-03-14] VITALS: Ht 165.1 cm; Wt 117.9 kg
[~2017-03-14 19:24] MED LIST changes: +TRAM-48 PO
[2017-03-14 19:32] VITALS: BP 174/80
[2017-03-14] MEDS ORDERED: ONDANSETRON PF 4 MG/2 ML VIAL. IV ONE (20:30)
[2017-03-14] MEDS ORDERED: MORPHINE SULFATE 10 MG/ML VIAL. IV ONE (20:30)
[2017-03-14 20:41] LABS: BILIRUBIN,URINE NEGATIVE (NEG); GLUCOSE,URINE 100 mg/dL (NEG); NITRITE,URINE NEGATIVE (NEG); PROTEIN,URINE NEGATIVE (NEG-TRACE); UROBILINOGEN,URINE 0.2 mg/dL (0.2 mg/dL)
[2017-03-14 20:48] LABS: BACTERIA,URINE MODERATE /HPF (0-FEW); RBC,URINE 0 /HPF (0-2); SQUAMOUS EPITHELIAL CELL,UR FEW /LPF; WBC,URINE OCC /HPF (0-4)
--- NOTE | 2017-03-14 21:06 | ED.ADGEN ---
Past Medical History Past Medical History: Asthma, COPD, Diabetes-Type II, High Cholesterol, Hypertension, Migraines, MRSA, Other Additional Past Medical Histor: sleep apnea; PE, chronic abdominal pain Past Surgical History: Appendectomy, Cholecystectomy, Colectomy, Hysterectomy Additional Past Surgical Histo: breast biopsies; bx cataracts; bx shoulders; umbilical hernia Alcohol Use: None Drug Use: None Adult General Chief Complaint Chief Complaint: ABDOMINAL PAIN HPI HPI Patient is a 66 year old female evaluated in this emergency department last evening for right lower quadrant pain presents with pearly controlled pain. Patient states she has had right lower quadrant pain, tenderness for the past 3 days. Patient has history of multiple abdominal wall hernias with failed repairs and has chronic intermittent abdominal pain. She has been evaluated in this ER and speech multiple times and has had a total of [address] scans of her abdomen pelvis in the past 3 years. Last evening, the patient had a CT scan which did not reveal acute pathology. Patient was discharged home with a prescription for tramadol, which she states is not controlling her pain. She denies any vomiting, diarrhea, constipation fever, chills or change and progression of symptoms. Review of Systems Review of Systems ROS as per HPI. Current Medications Current Medications Current Medications Medications (Trade) Dose Ordered Sig/Irish Start Time Stop Time Status Last Admin Dose Admin Morphine Sulfate 5 mg 1X ONCE 03/14/17 20:30 03/14/17 20:31 DC Ondansetron HCl (Zofran) 4 mg 1X ONCE 03/14/17 20:30 03/14/17 20:31 DC Allergies Allergies Allergies Coded Allergies Type Severity Reaction Last Updated Verified Penicillins Allergy Intermediate itching, dry mouth, tongue swells 12/16/15 Yes Sulfa (Sulfonamide Antibiotics) Allergy Intermediate ITCHING DRY MOUTH, hives/ swelling 12/16/15 Yes fentanyl Allergy Intermediate 12/16/15 Yes hydromorphone HCl Allergy Intermediate MORPHINE OK 12/16/15 Yes methylprednisolone Allergy Intermediate RED MAN SYNDROME 10/11/16 Yes prednisone Allergy Intermediate RED MED SYNDROME 10/11/16 Yes I S O L A T I O N *CONTACT* Allergy Unknown 02/04/17 Yes oxycodone HCl Adverse Reaction Intermediate "i FEEL LIKE I HAVE WORMS IN ME" Yes Physical Exam Physical Exam Constitutional: Well developed, well nourished, no acute distress, non-toxic appearance. HENT: Normocephalic, atraumatic, bilateral external ears normal, oropharynx moist, no oral exudates, nose normal. Eyes: PERRLA, EOMI, conjunctiva normal. Neck: Normal range of motion, no tenderness, supple. Cardiovascular:Heart rate regular rhythm, no murmur. Lungs & Thorax: Bilateral breath sounds clear to auscultation. Abdomen: Bowel sounds normal, soft, right lower quadrant pain/tenderness, no appreciated guarding, negative McBurney's. Skin: Warm, dry, no erythema. Back: No tenderness, no CVA tenderness. Extremities: No tenderness. Neurologic: Alert and oriented X 3, normal motor function, normal sensory function, no focal deficits noted. Psychologic: Affect normal, judgement normal, mood normal. Current Patient Data Vital Signs Vital Signs Date Time Temp Pulse Resp B/P (MAP) Pulse Ox O2 Delivery O2 Flow Rate FiO2 03/14/17 19:32 98.7 87 18 174/80 (111) 95 Room Air 98.7 Lab Values Laboratory Tests Test 03/14/17 20:30 Urine Collection Type Unknown Urine Color Other Urine Clarity Clear Urine pH 6.0 Urine Specific [place] <=1.005 Urine Protein Negative mg/dL (NEG-TRACE) Urine Glucose (UA) 100 mg/dL (NEG) Urine Ketones (Stick) Negative mg/dL (NEG) Urine Blood Negative (NEG) Urine Nitrite Negative (NEG) Urine Bilirubin Negative (NEG) Urine Urobilinogen Dipstick 0.2 mg/dL (0.2 mg/dL) Urine Leukocyte Esterase Negative (NEG) Urine RBC 0 /HPF (0-2) Urine WBC Occ /HPF (0-4) Urine Squamous Epithelial Cells Few /LPF Urine Bacteria Moderate /HPF (0-FEW) EKG EKG [EKG: Normal sinus rhythm, rate 82, no acute ST-T wave changes.] Radiology/Procedures Radiology/Procedures [CT abdomen pelvis dated 03/13/17 reviewed.] Course & Med Decision Making Course & Med Decision Making Pertinent Labs and Imaging studies reviewed. (See chart for details) [Nondescript abdominal pain, without change of frequency severity pattern or associated symptoms from last night's evaluation. Previous lab work and imaging studies reviewed. No change in today's lab. Do not suspect acute intra- abdominal pathology. Recommend creasing home pain medications told follow-up with PCP for management of undifferentiated abdominal pain.] Vansesa Disclaimer Dragon Disclaimer This electronic medical record was generated, in whole or in part, using a voice recognition dictation system. WAYLON NGUYEN DO Mar 14, 2017 21:06
[2017-03-14 21:08] LABS: BASO # 0.1 x10^3/uL (0.0-0.2); BASO % 1 % (0-3); EOS % 4 % (0-3); HEMOGLOBIN 12.3 g/dL (12.0-15.5); LYMPH # 2.7 x10^3/uL (1.0-4.8); LYMPH % 45 % (24-48); MEAN CORPUSCULAR HEMOGLOBIN 30 pg (25-35); MEAN CORPUSCULAR HGB CONC 34 g/dL (31-37); MEAN CORPUSCULAR VOLUME 86 fL (79-100); MONO % 8 % (0-9); NEUT % 43 % (31-73); PLATELET COUNT 217 x10^3/uL (140-400); RED BLOOD COUNT 4.19 x10^6/uL (3.50-5.40); RED CELL DISTRIBUTION WIDTH 14.7 % (11.5-14.5); WHITE BLOOD COUNT 6.1 x10^3/uL (4.0-11.0)
[2017-03-14 21:19] LABS: CALCIUM 8.5 mg/dL (8.5-10.1); CREATININE 0.8 mg/dL (0.6-1.0); POTASSIUM 3.6 mmol/L (3.5-5.1)
[2017-03-14 21:24] LABS: ALBUMIN 2.9 g/dL (3.4-5.0); ALBUMIN/GLOBULIN RATIO 0.9 (1.0-1.7); C-REACTIVE PROTEIN 14.6 mg/L (0-3.3); TOTAL BILIRUBIN 0.3 mg/dL (0.2-1.0); TOTAL PROTEIN 6.3 g/dL (6.4-8.2)
[2017-03-14] MEDS ORDERED: HYDROcodone/APAP 10/325 1 TAB TABLET PO ONE (22:45)
--- NOTE | 2017-03-15 06:20 | EKG ---
[facility] [address] [place] [address] Test Date: 2017-03-14 Test Time: 19:57:09 Pat Name: ELY CARDOZA Department: Room: Gender: F Pediatric Genetic Counselor: : 1950 Requested By: WAYLON NGUYEN Order Number: [id number] Reading MD: Landen Grant Measurements Intervals [place] Rate: 82 P: 37 TX: 196 QRS: -23 QRSD: 88 T: 36 QT: 348 QTc: 409 Interpretive Statements SINUS RHYTHM LEFTWARD AXIS Electronically Signed On 03-17-2017 15:00:28 CDT by Landen Grant
== END 2017-03-14 22:56 | disposition home or self-care (01) ==
LOC: ER 19:24
DX: R10.31 Right lower quadrant pain (principal); J44.9 Chronic obstructive pulmonary disease, unspecified; E11.9 Type 2 diabetes mellitus without complications; E78.00 Pure hypercholesterolemia, unspecified; I10 Essential (primary) hypertension; G43.909 Migraine, unspecified, not intractable, without status migrainosus; Z86.711 Personal history of pulmonary embolism; Z90.49 Acquired absence of other specified parts of digestive tract; Z90.710 Acquired absence of both cervix and uterus; Z88.0 Allergy status to penicillin; Z88.2 Allergy status to sulfonamides; Z88.8 Allergy status to other drugs, medicaments and biological substances; Z88.5 Allergy status to narcotic agent
CPT/HCPCS: 36415; 80053; 81001; 83690; 84484; 85027; 86140; 87086; 93005; 96374; 96375; 99285; J2270; J2405

== ENCOUNTER 2017-03-30 21:40 | Emergency (ER) | payer BC, OTHER ==
[~2017-03-30] VITALS: Ht 165.1 cm; Wt 120.2 kg
[2017-03-30 22:52] VITALS: BP 142/65
[2017-03-30 23:11] LABS: BILIRUBIN,URINE NEGATIVE (NEG); GLUCOSE,URINE >=1000 mg/dL (NEG); NITRITE,URINE NEGATIVE (NEG); PH,URINE 6.5; PROTEIN,URINE NEGATIVE (NEG-TRACE); UROBILINOGEN,URINE 0.2 mg/dL (0.2 mg/dL)
[2017-03-30 23:23] LABS: BACTERIA,URINE FEW /HPF (0-FEW); RBC,URINE 0 /HPF (0-2); WBC,URINE OCC /HPF (0-4)
[2017-03-30 23:24] LABS: SQUAMOUS EPITHELIAL CELL,UR FEW /LPF
[2017-03-30] MEDS ORDERED: ONDANSETRON PF 4 MG/2 ML VIAL. IV ONE (23:30)
[2017-03-30] MEDS ORDERED: MORPHINE SULFATE 10 MG/ML VIAL. IV ONE (23:30)
[2017-03-31 01:08] LABS: BASO # 0.1 x10^3/uL (0.0-0.2); BASO % 1 % (0-3); EOS % 2 % (0-3); HEMATOCRIT 37.3 % (36.0-47.0); LYMPH # 2.9 x10^3/uL (1.0-4.8); LYMPH % 41 % (24-48); MEAN CORPUSCULAR HEMOGLOBIN 30 pg (25-35); MEAN CORPUSCULAR HGB CONC 35 g/dL (31-37); MEAN CORPUSCULAR VOLUME 85 fL (79-100); MONO % 7 % (0-9); NEUT % 49 % (31-73); PLATELET COUNT 265 x10^3/uL (140-400); RED BLOOD COUNT 4.38 x10^6/uL (3.50-5.40); WHITE BLOOD COUNT 7.2 x10^3/uL (4.0-11.0)
[2017-03-31 01:20] LABS: CALCIUM 8.3 mg/dL (8.5-10.1); CREATININE 0.8 mg/dL (0.6-1.0)
[2017-03-31 01:27] LABS: ALBUMIN/GLOBULIN RATIO 0.9 (1.0-1.7); TOTAL BILIRUBIN 0.2 mg/dL (0.2-1.0); TOTAL PROTEIN 6.4 g/dL (6.4-8.2)
--- NOTE | 2017-03-31 01:32 | PHYS DOC ---
Past Medical History Past Medical History: COPD, Diabetes-Type I Additional Past Medical Histor: PE, sleep apnea Past Surgical History: Cholecystectomy, Hysterectomy Additional Past Surgical Histo: bilateral cataract, bilater shoulder, hernia x7 Alcohol Use: None Drug Use: None Adult General Chief Complaint Chief Complaint: ABDOMINAL PAIN HPI HPI Patient is a 66 year old female who presents with abdominal pain. The patient reports right mid abdominal pain & right flank pain since yesterday. She reports nausea. She denies fevers/chills, vomiting, diarrhea, constipation, dysuria/hematuria, vaginal bleeding/discharge. She states this is similar to previous chronic abdominal pain. She has had 16 CT abdomen/pelvis exams in the past 5 years. She has history of diabetes, cholecystectomy, hysterectomy. Review of Systems Review of Systems Constitutional: Denies fever or chills Eyes: Denies change in visual acuity HENT: Denies nasal congestion or sore throat Respiratory: Denies cough or shortness of breath Cardiovascular: Denies chest pain or edema GI: Reports abdominal pain, nausea, denies vomiting, bloody stools or diarrhea : Denies dysuria or hematuria Musculoskeletal: Denies back pain or joint pain Integument: Denies rash or skin lesions Neurologic: Denies headache, focal weakness or sensory changes Current Medications Current Medications Current Medications Medications (Trade) Dose Ordered Sig/Irish Start Time Stop Time Status Last Admin Dose Admin Acetaminophen/ Hydrocodone Bitart (Lortab 5/325) 2 tab 1X ONCE 03/31/17 02:15 03/31/17 02:17 DC 03/31/17 02:29 2 TAB Morphine Sulfate 5 mg 1X ONCE 03/30/17 23:30 03/30/17 23:31 DC 03/30/17 23:50 5 MG Ondansetron HCl (Zofran) 4 mg 1X ONCE 03/30/17 23:30 03/30/17 23:31 DC 03/30/17 23:49 4 MG Allergies Allergies Allergies Coded Allergies Type Severity Reaction Last Updated Verified Penicillins Allergy Intermediate itching, dry mouth, tongue swells 12/16/15 Yes Sulfa (Sulfonamide Antibiotics) Allergy Intermediate ITCHING DRY MOUTH, hives/ swelling 12/16/15 Yes fentanyl Allergy Intermediate 12/16/15 Yes hydromorphone HCl Allergy Intermediate MORPHINE OK 12/16/15 Yes methylprednisolone Allergy Intermediate RED MAN SYNDROME 10/11/16 Yes prednisone Allergy Intermediate RED MED SYNDROME 10/11/16 Yes I S O L A T I O N *CONTACT* Allergy Unknown 02/04/17 Yes oxycodone HCl Adverse Reaction Intermediate "i FEEL LIKE I HAVE WORMS IN ME" Yes Physical Exam Physical Exam Constitutional: Obese, no acute distress, non-toxic appearance. HENT: Normocephalic, atraumatic, bilateral external ears normal, oropharynx moist, nose normal. Eyes: conjunctiva normal, no discharge. Neck: supple, no stridor. Cardiovascular: RRR, no murmurs, no edema. Lungs & Thorax: LCTAB, no wheezing, no respiratory distress. Abdomen: soft, mild right midabdominal tenderness without rebound or guarding, no masses or pulsatile masses, nondistended. Skin: Warm, dry, no erythema, no rash. Back: No CVA tenderness. Extremities: No tenderness, no edema. Neurologic: Alert and oriented X 3, no focal deficits noted. Psychologic: Affect normal, judgement normal, mood normal. Current Patient Data Vital Signs Vital Signs Date Time Temp Pulse Resp B/P (MAP) Pulse Ox O2 Delivery O2 Flow Rate FiO2 03/31/17 02:29 97 Room Air 03/30/17 23:50 20 03/30/17 22:52 98.5 87 142/65 (90) 98.5 Lab Values Laboratory Tests Test 03/30/17 22:30 03/31/17 00:45 Urine Collection Type Unknown Urine Color Yellow Urine Clarity Clear Urine pH 6.5 Urine Specific [place] 1.020 Urine Protein Negative mg/dL (NEG-TRACE) Urine Glucose (UA) >=1000 mg/dL (NEG) Urine Ketones (Stick) Negative mg/dL (NEG) Urine Blood Negative (NEG) Urine Nitrite Negative (NEG) Urine Bilirubin Negative (NEG) Urine Urobilinogen Dipstick 0.2 mg/dL (0.2 mg/dL) Urine Leukocyte Esterase Negative (NEG) Urine RBC 0 /HPF (0-2) Urine WBC Occ /HPF (0-4) Urine Squamous Epithelial Cells Few /LPF Urine Bacteria Few /HPF (0-FEW) White Blood Count 7.2 x10^3/uL (4.0-11.0) Red Blood Count 4.38 x10^6/uL (3.50-5.40) Hemoglobin 13.0 g/dL (12.0-15.5) Hematocrit 37.3 % (36.0-47.0) Mean Corpuscular Volume 85 fL (79-100) Mean Corpuscular Hemoglobin 30 pg (25-35) Mean Corpuscular Hemoglobin Concent 35 g/dL (31-37) Red Cell Distribution Width 15.0 % (11.5-14.5) H Platelet Count 265 x10^3/uL (140-400) Neutrophils (%) (Auto) 49 % (31-73) Lymphocytes (%) (Auto) 41 % (24-48) Monocytes (%) (Auto) 7 % (0-9) Eosinophils (%) (Auto) 2 % (0-3) Basophils (%) (Auto) 1 % (0-3) Neutrophils # (Auto) 3.5 x10^3uL (1.8-7.7) Lymphocytes # (Auto) 2.9 x10^3/uL (1.0-4.8) Monocytes # (Auto) 0.5 x10^3/uL (0.0-1.1) Eosinophils # (Auto) 0.2 x10^3/uL (0.0-0.7) Basophils # (Auto) 0.1 x10^3/uL (0.0-0.2) Sodium Level 137 mmol/L (136-145) Potassium Level 4.0 mmol/L (3.5-5.1) Chloride Level 101 mmol/L (98-107) Carbon Dioxide Level 27 mmol/L (21-32) Anion Gap 9 (6-14) Blood Urea Nitrogen 14 mg/dL (7-20) Creatinine 0.8 mg/dL (0.6-1.0) Estimated GFR (Cockcroft-Gault) 72.0 BUN/Creatinine Ratio 18 (6-20) Glucose Level 318 mg/dL (70-99) H Calcium Level 8.3 mg/dL (8.5-10.1) L Total Bilirubin 0.2 mg/dL (0.2-1.0) Aspartate Amino Transferase (AST) 16 U/L (15-37) Alanine Aminotransferase (ALT) 23 U/L (14-59) Alkaline Phosphatase 125 U/L (46-116) H Total Protein 6.4 g/dL (6.4-8.2) Albumin 3.0 g/dL (3.4-5.0) L Albumin/Globulin Ratio 0.9 (1.0-1.7) L Laboratory Tests 03/31/17 00:45 Laboratory Tests 03/31/17 00:45 EKG EKG [] Radiology/Procedures Radiology/Procedures CT report from 03/14/2017 PROCEDURE: CT ABDOMEN PELVIS WO CONTRAST CT abdomen and pelvis without contrast 03/13/2017 Clinical indication: Right lower quadrant abdominal pain status post appendectomy. Comparison: CT abdomen and pelvis October 09, 2016 Technique: CT helical acquisition of the abdomen and pelvis without intravenous contrast according to standard protocol. Coronal and sagittal reformations were obtained. PQRS Compliance Statement: One or more of the following individualized dose reduction techniques were utilized for this examination: 1. Automated exposure control 2. Adjustment of the mA and/or kV according to patient size 3. Use of iterative reconstruction technique Findings: Abdomen and pelvis: Heart size is normal with partial visualization of coronary artery calcifications. Lung bases are clear. Evaluation of the solid abdominopelvic viscera, lymphadenopathy and vasculature is limited in the absence of intravenous contrast. Unenhanced contours of the liver, spleen, adrenal glands and pancreas and kidneys are within normal limits. Abdominal aorta is normal in caliber with mild calcified atheromatous disease. Prior cholecystectomy. No intra or extrahepatic biliary ductal dilatation. Small and large bowel loops are normal in caliber without obstruction. There are few scattered distal colonic diverticula without diverticulitis. No abdominal free fluid. No intra-abdominal loculated gas/fluid collection. There is diffuse rectus abdominis diastases and prior ventral hernia repair with mesh. Small hiatal hernia Mildly distended and unopacified urinary bladder grossly unremarkable. Prior hysterectomy the vaginal cuff within normal limits. No definite iliac or inguinal lymphadenopathy. No pelvic free fluid. There are a few ill-defined subcentimeter soft tissue opacities in the lower anterior abdominal subcutaneous tissues, likely injection sites. The graft there is multilevel degenerative disc disease of the lumbar spine greatest to severe degree at L4-L5 with disc space narrowing and endplate sclerosis. Impression: No noncontrast CT etiology for patient's right lower quadrant abdominal pain, specifically no bowel obstruction, ascites or loculated fluid collection. DICTATED and SIGNED BY: BRAN CAMPBELL MD DATE: 03/13/17 1638 [] Course & Med Decision Making Course & Med Decision Making Pertinent Labs and Imaging studies reviewed. (See chart for details) The patient presents with abdominal pain. Administered pain medication. Obtained labs and UA. No significant abnormality identified except hyperglycemia without DKA. Recent CT as documented above. Based on stable vitals , unremarkable labs, well-appearing patient, I did not recommend additional radiation exposure for evaluation of stable chronic abdominal pain. Recommend supportive care at home with rest, by mouth hydration, pain medication if she has a prescription from her primary care physician. Recommend compliance with diabetic medications and frequent Accu-Cheks. Follow-up with PCP in 2-3 days if symptoms continue. Return to the emergency department for high fever, severe pain, uncontrolled vomiting, any otherwise worsening condition. Discharged home in stable condition. [] Dragon Disclaimer Dragon Disclaimer This electronic medical record was generated, in whole or in part, using a voice recognition dictation system. Departure Departure Impression: Primary Impression: Abdominal pain Additional Impression: Hyperglycemia Disposition: 01 HOME, SELF-CARE Condition: STABLE Referrals: Meagan ALVAREZ MD (PCP) Patient Instructions: Abdominal Pain, [id number] Additional Instructions: You were seen in the emergency department today for abdominal pain. Tests here did not show serious cause of symptoms. Her glucose was 318. Please make sure to take diabetic medications as prescribed. Follow-up with primary care physician in 2-3 days if symptoms continue. Return to the emergency department for high fever, severe pain, uncontrolled vomiting, any otherwise worsening condition. Problem Qualifiers SUNG METZGER MD Mar 31, 2017 01:32
[2017-03-31] MEDS ORDERED: HYDROcodone/APAP 5/325MG 1 TAB TABLET PO ONE (02:15)
== END 2017-03-31 02:32 | disposition home or self-care (01) ==
LOC: ER 21:40
DX: R10.9 Unspecified abdominal pain (principal); R11.0 Nausea; E10.65 Type 1 diabetes mellitus with hyperglycemia; J44.9 Chronic obstructive pulmonary disease, unspecified; E10.36 Type 1 diabetes mellitus with diabetic cataract; G47.30 Sleep apnea, unspecified; E66.9 Obesity, unspecified; G89.29 Other chronic pain; Z90.49 Acquired absence of other specified parts of digestive tract; Z90.710 Acquired absence of both cervix and uterus; Z98.42 Cataract extraction status, left eye; Z98.41 Cataract extraction status, right eye; Z86.711 Personal history of pulmonary embolism; Z88.0 Allergy status to penicillin; Z88.2 Allergy status to sulfonamides; Z88.4 Allergy status to anesthetic agent; Z88.5 Allergy status to narcotic agent; Z88.8 Allergy status to other drugs, medicaments and biological substances; Z91.041 Radiographic dye allergy status; Z68.41 Body mass index [BMI] 40.0-44.9, adult
CPT/HCPCS: 36415; 80053; 81001; 85025; 96374; 96375; 99284; J2270; J2405

== ENCOUNTER 2017-04-03 22:20 | Emergency (ER) | payer BC, OTHER ==
[~2017-04-03] VITALS: Ht 165.1 cm; Wt 120.2 kg
[2017-04-03] MEDS ORDERED: AZIT250T PO (22:47)
--- NOTE | 2017-04-03 22:47 | PHYS DOC ---
Past Medical History Past Medical History: COPD, Diabetes-Type I Additional Past Medical Histor: PE, sleep apnea Past Surgical History: Cholecystectomy, Hysterectomy Additional Past Surgical Histo: bilateral cataract, bilater shoulder, hernia x7 Alcohol Use: None Drug Use: None Adult General Chief Complaint Chief Complaint: EARACHE/EAR PAIN [facility] HPI Patient is a 66 year old female presents to the emergency department stating that she's been having pressure in her right ear that goes down into her neck. Patient states that she's also had some swelling and discomfort. Although the discomfort is pressure type issues. She has not taken anything for the symptoms. Denies any fever, chills or any nausea vomiting. She states that the ears, right feels like she has pressure and hears bells. Patient denies any cough cold or congestion. Review of Systems Review of Systems Constitutional: Denies fever or chills [] Eyes: Denies change in visual acuity, redness, or eye pain [] HENT: Denies nasal congestion or sore throat. Right ear pressure, swelling to the right jaw, adenoids. Respiratory: Denies cough or shortness of breath [] Cardiovascular: No additional information not addressed in HPI [] GI: Denies abdominal pain, nausea, vomiting, bloody stools or diarrhea [] : Denies dysuria or hematuria [] Musculoskeletal: Denies back pain or joint pain [] Integument: Denies rash or skin lesions [] Neurologic: Denies headache, focal weakness or sensory changes [] Endocrine: Denies polyuria or polydipsia [] Allergies Allergies Allergies Coded Allergies Type Severity Reaction Last Updated Verified Penicillins Allergy Intermediate itching, dry mouth, tongue swells 12/16/15 Yes Sulfa (Sulfonamide Antibiotics) Allergy Intermediate ITCHING DRY MOUTH, hives/ swelling 12/16/15 Yes fentanyl Allergy Intermediate 12/16/15 Yes hydromorphone HCl Allergy Intermediate MORPHINE OK 12/16/15 Yes methylprednisolone Allergy Intermediate RED MAN SYNDROME 10/11/16 Yes prednisone Allergy Intermediate RED MED SYNDROME 10/11/16 Yes I S O L A T I O N *CONTACT* Allergy Unknown 02/04/17 Yes oxycodone HCl Adverse Reaction Intermediate "i FEEL LIKE I HAVE WORMS IN ME" Yes Physical Exam Physical Exam Constitutional: Well developed, well nourished, no acute distress, non-toxic appearance. [] HENT: Normocephalic, atraumatic, bilateral external ears normal, oropharynx moist, no oral exudates, nose normal. Bilateral tympanic membranes appear to be normal. Patient with right anterior cervical adenopathy noted. Also noted to have swelling along the jawline. Eyes: PERRLA, EOMI, conjunctiva normal, no discharge. [] Neck: Normal range of motion, no tenderness, supple, no stridor. [] Cardiovascular:Heart rate regular rhythm, no murmur [] Lungs & Thorax: Bilateral breath sounds clear to auscultation [] Skin: Warm, dry, no erythema, no rash. [] Back: No tenderness Extremities: No tenderness, no cyanosis, no clubbing, ROM intact, no edema. [] Neurologic: Alert and oriented X 3, normal motor function, normal sensory function, no focal deficits noted. [] Psychologic: Affect normal, judgement normal, mood normal. [] Current Patient Data Vital Signs Vital Signs Date Time Temp Pulse Resp B/P (MAP) Pulse Ox O2 Delivery O2 Flow Rate FiO2 04/03/17 22:27 97.9 90 22 96 Room Air 97.9 EKG EKG [] Radiology/Procedures Radiology/Procedures [] Course & Med Decision Making Course & Med Decision Making Pertinent Labs and Imaging studies reviewed. (See chart for details) Patient will be placed on Zithromax with recommendations to follow-up with ENT. Patient will be discharged home with recommendations for Tylenol or ibuprofen if she develops any pain or discomfort. Signs and symptoms to return back to emergency department as been provided. Patient agrees with discharge instructions, treatment regimens follow-up recommendations. All questions and concerns was inserted the patient's bedside. [] Dragon Disclaimer Dragon Disclaimer This electronic medical record was generated, in whole or in part, using a voice recognition dictation system. Departure Departure Impression: Primary Impression: Pressure sensation in right ear Additional Impression: Lymphadenopathy of head and neck Disposition: 01 HOME, SELF-CARE Condition: STABLE Referrals: Meagan ALVAREZ MD (PCP) Patient Instructions: Lymphangitis, Pediatric Additional Instructions: Activity as tolerated. Tylenol or ibuprofen for Body aches and discomfort. Antibiotic as prescribed. Follow-up with ENT within the next week. You may look at or [facility] for an air nose and throat doctor. Return back to emergency prior signs and symptoms of become worse. Scripts Azithromycin (ZITHROMAX) 250 Mg Tablet 250 MG PO DAILY for ANTI-BIOTIC, #6 TAB 0 Refills Take 2 tablets today then 1 tablet daily until gone Prov: TRAM ANTHONY APRN 04/03/17 Problem Qualifiers TRAM ANTHONY APRN Apr 03, 2017 22:47
== END 2017-04-03 23:00 | disposition home or self-care (01) ==
LOC: ER 22:20
DX: H93.8X1 Other specified disorders of right ear (principal); R59.1 Generalized enlarged lymph nodes; E10.9 Type 1 diabetes mellitus without complications; J44.9 Chronic obstructive pulmonary disease, unspecified; G47.30 Sleep apnea, unspecified; Z90.49 Acquired absence of other specified parts of digestive tract; Z90.710 Acquired absence of both cervix and uterus; Z88.2 Allergy status to sulfonamides; Z88.0 Allergy status to penicillin; Z88.4 Allergy status to anesthetic agent; Z91.041 Radiographic dye allergy status; Z88.5 Allergy status to narcotic agent; Z88.8 Allergy status to other drugs, medicaments and biological substances
CPT/HCPCS: 99283

== ENCOUNTER 2017-04-18 19:52 | Observation (INO) | payer BC, OTHER ==
[~2017-04-18] VITALS: Ht 165.1 cm; Wt 115.7 kg
[~2017-04-18 19:52] MED LIST changes: +AZIT250T PO
[2017-04-18 20:41] LABS: BASO % 0 % (0-3); EOS % 2 % (0-3); HEMATOCRIT 42.4 % (36.0-47.0); HEMOGLOBIN 14.4 g/dL (12.0-15.5); LYMPH # 3.2 x10^3/uL (1.0-4.8); LYMPH % 29 % (24-48); MEAN CORPUSCULAR HEMOGLOBIN 29 pg (25-35); MEAN CORPUSCULAR HGB CONC 34 g/dL (31-37); MEAN CORPUSCULAR VOLUME 87 fL (79-100); MONO % 6 % (0-9); NEUT % 63 % (31-73); PLATELET COUNT 306 x10^3/uL (140-400); RED CELL DISTRIBUTION WIDTH 14.5 % (11.5-14.5); WHITE BLOOD COUNT 10.9 x10^3/uL (4.0-11.0)
[2017-04-18 20:51] LABS: INR 2.7 (0.8-1.1); PROTHROMBIN TIME PATIENT 26.9 SEC (11.7-14.0)
--- NOTE | 2017-04-18 20:56 | RAD ---
EXAM: Head CT and cervical spine without contrast. HISTORY: Trauma. TECHNIQUE: Computed tomographic images of the head and cervical spine were obtained without contrast. *One or more of the following individualized dose reduction techniques were utilized for this examination: 1. Automated exposure control. 2. Adjustment of the mA and/or kV according to patient size. 3. Use of iterative reconstruction technique. COMPARISON: 01/02/2017. FINDINGS: Head: There is no hemorrhage. There is no mass effect or midline shift. There is no hydrocephalus. The cox and white matter differentiation pattern is intact. There is mild age-appropriate cerebral volume loss. The visualized portions the orbits, paranasal sinus mastoid air cells are unremarkable. No calvarial lesion is seen. Cervical spine: There is mild listhesis at multiple levels. There is degenerative endplate remodeling with disc space narrowing and osteophytosis primarily at C4-C5 and C5-C6. There is patchy sclerosis predominantly within these vertebral segments. At C2-C3, there is no stenosis. At C3-C4, there is mild facet arthropathy. There is no stenosis. At C4-C5, there is a broad-based posterior central disc protrusion superimposed on a disc bulge and endplate osteophytosis. There is mild left facet arthropathy. There is uncovertebral arthropathy. There is mild bilateral foraminal stenosis. At C5-C6, there is a posterior central disc protrusion superimposed on a disc bulge and endplate osteophytosis. There is mild left facet arthropathy. There is left uncovertebral arthropathy. There is mild left foraminal and central canal stenosis. At C6-C7, there is a disc bulge and endplate remodeling. There is mild left facet arthropathy. There is no stenosis. IMPRESSION: 1. No acute intracranial finding or evidence of acute cervical spine trauma. 2. Multilevel degenerative change within the cervical spine, described above. 3. Patchy sclerosis within the mid cervical vertebral bodies. In the absence of known malignancy, this likely degenerative in etiology. Electronically signed by: Mayra Ness MD (04/18/2017 8:53 PM) [facility]
[2017-04-18 21:00] LABS: CALCIUM 9.4 mg/dL (8.5-10.1); CREATININE 0.8 mg/dL (0.6-1.0); POTASSIUM 3.8 mmol/L (3.5-5.1)
[2017-04-18 21:09] LABS: ALBUMIN 3.1 g/dL (3.4-5.0); ALBUMIN/GLOBULIN RATIO 0.8 (1.0-1.7); MAGNESIUM 1.6 mg/dL (1.8-2.4); TOTAL BILIRUBIN 0.2 mg/dL (0.2-1.0)
[2017-04-18 21:17] LABS: BILIRUBIN,URINE NEGATIVE (NEG); GLUCOSE,URINE NEGATIVE (NEG); NITRITE,URINE NEGATIVE (NEG); PH,URINE 6.5; PROTEIN,URINE NEGATIVE (NEG-TRACE); UROBILINOGEN,URINE 0.2 mg/dL (0.2 mg/dL)
[2017-04-18 21:23] LABS: BACTERIA,URINE FEW /HPF (0-FEW); RBC,URINE 0 /HPF (0-2); SQUAMOUS EPITHELIAL CELL,UR FEW /LPF; WBC,URINE RARE /HPF (0-4)
[2017-04-18] MEDS ORDERED: ONDANSETRON PF 4 MG/2 ML VIAL. IV PRN (22:15)
[2017-04-18] MEDS: MORPHINE SULFATE 2 MG/ML DISP.SYRIN. IV PRN (22:30)
[2017-04-18 23:00] VITALS: BP 152/82
--- NOTE | 2017-04-18 23:58 | PHYS DOC ---
Past Medical History Past Medical History: COPD, Diabetes-Type I Additional Past Medical Histor: PE, sleep apnea Past Surgical History: Cholecystectomy, Hysterectomy Additional Past Surgical Histo: bilateral cataract, bilater shoulder, hernia x7 Alcohol Use: None Drug Use: None Adult General Chief Complaint Chief Complaint: MULTIPLE COMPLAINTS HPI HPI Patient is a 66 year old female who presents with multiple falls. The patient states she has at least 4 episodes in the past week of lightheadedness resulting in fall. She is unsure if she experiences full syncopal episode, but she states she feels lightheaded & falls to the ground, sometimes hitting her back against furniture & now having lower back pain. She doesn't recall head trauma or loss of consciousness but she does take coumadin for history of PE. She reports pressure in her right ear. Denies fevers/chills, headache, vision changes, chest pain, palpitations, shortness of breath, abdominal pain, nausea, vomiting, diarrhea, dysuria, hematochezia/melena, extremity numbness/weakness. PCP is Dr. Castro. Review of Systems Review of Systems Constitutional: Denies fever or chills Eyes: Denies change in visual acuity HENT: Denies nasal congestion or sore throat Respiratory: Denies cough or shortness of breath Cardiovascular: Denies chest pain or edema GI: Denies abdominal pain, nausea, vomiting, bloody stools or diarrhea : Denies dysuria or hematuria Musculoskeletal: Denies back pain or joint pain Integument: Denies rash or skin lesions Neurologic: Reports weakness possible syncope. Denies headache, focal weakness or sensory changes Allergies Allergies Allergies Coded Allergies Type Severity Reaction Last Updated Verified Penicillins Allergy Intermediate itching, dry mouth, tongue swells 12/16/15 Yes Sulfa (Sulfonamide Antibiotics) Allergy Intermediate ITCHING DRY MOUTH, hives/ swelling 12/16/15 Yes fentanyl Allergy Intermediate 12/16/15 Yes hydromorphone HCl Allergy Intermediate MORPHINE OK 12/16/15 Yes methylprednisolone Allergy Intermediate RED MAN SYNDROME 10/11/16 Yes prednisone Allergy Intermediate RED MED SYNDROME 10/11/16 Yes I S O L A T I O N *CONTACT* Allergy Unknown 02/04/17 Yes oxycodone HCl Adverse Reaction Intermediate "i FEEL LIKE I HAVE WORMS IN ME" Yes Physical Exam Physical Exam Constitutional: obese, no acute distress, non-toxic appearance. HENT: Normocephalic, atraumatic, bilateral external ears normal, right TM is clear, oropharynx moist, nose normal. Eyes: PERRLA, EOMI, conjunctiva normal, no discharge. Neck: supple, no stridor. no midline c-spine tenderness Cardiovascular: RRR, no murmurs, no edema. Lungs & Thorax: LCTAB, no wheezing, no respiratory distress. Abdomen: soft, nontender, nondistended. Skin: Warm, dry, no erythema, no rash. Back: generalized lumbar spine tenderness without step offs Extremities: No tenderness, no edema. Neurologic: Alert and oriented X 3, CN2-12 grossly intact, symmetric strength/ sensation to upper & lower extremities, no focal deficits noted. Psychologic: Affect normal, judgement normal, mood normal. Current Patient Data Vital Signs Vital Signs Date Time Temp Pulse Resp B/P (MAP) Pulse Ox O2 Delivery O2 Flow Rate FiO2 04/18/17 20:02 99.4 94 16 162/87 (112) 96 Room Air 99.4 Lab Values Laboratory Tests Test 04/18/17 20:30 04/18/17 21:11 White Blood Count 10.9 x10^3/uL (4.0-11.0) Red Blood Count 4.90 x10^6/uL (3.50-5.40) Hemoglobin 14.4 g/dL (12.0-15.5) Hematocrit 42.4 % (36.0-47.0) Mean Corpuscular Volume 87 fL (79-100) Mean Corpuscular Hemoglobin 29 pg (25-35) Mean Corpuscular Hemoglobin Concent 34 g/dL (31-37) Red Cell Distribution Width 14.5 % (11.5-14.5) Platelet Count 306 x10^3/uL (140-400) Neutrophils (%) (Auto) 63 % (31-73) Lymphocytes (%) (Auto) 29 % (24-48) Monocytes (%) (Auto) 6 % (0-9) Eosinophils (%) (Auto) 2 % (0-3) Basophils (%) (Auto) 0 % (0-3) Neutrophils # (Auto) 6.8 x10^3uL (1.8-7.7) Lymphocytes # (Auto) 3.2 x10^3/uL (1.0-4.8) Monocytes # (Auto) 0.6 x10^3/uL (0.0-1.1) Eosinophils # (Auto) 0.3 x10^3/uL (0.0-0.7) Basophils # (Auto) 0.0 x10^3/uL (0.0-0.2) Prothrombin Time 26.9 SEC (11.7-14.0) H Prothrombin Time INR 2.7 (0.8-1.1) H PTT 45 SEC (24-38) H Sodium Level 131 mmol/L (136-145) L Potassium Level 3.8 mmol/L (3.5-5.1) Chloride Level 94 mmol/L (98-107) L Carbon Dioxide Level 26 mmol/L (21-32) Anion Gap 11 (6-14) Blood Urea Nitrogen 13 mg/dL (7-20) Creatinine 0.8 mg/dL (0.6-1.0) Estimated GFR (Cockcroft-Gault) 72.0 BUN/Creatinine Ratio 16 (6-20) Glucose Level 215 mg/dL (70-99) H Calcium Level 9.4 mg/dL (8.5-10.1) Magnesium Level 1.6 mg/dL (1.8-2.4) L Total Bilirubin 0.2 mg/dL (0.2-1.0) Aspartate Amino Transferase (AST) 25 U/L (15-37) Alanine Aminotransferase (ALT) 22 U/L (14-59) Alkaline Phosphatase 136 U/L (46-116) H Troponin I Quantitative < 0.017 ng/mL (0.000-0.055) JJ-Too-S-Type Natriuretic Peptide 22 pg/mL (0-124) Total Protein 7.0 g/dL (6.4-8.2) Albumin 3.1 g/dL (3.4-5.0) L Albumin/Globulin Ratio 0.8 (1.0-1.7) L Urine Collection Type Unknown Urine Color Straw Urine Clarity Clear Urine pH 6.5 Urine Specific [place] <=1.005 Urine Protein Negative mg/dL (NEG-TRACE) Urine Glucose (UA) Negative mg/dL (NEG) Urine Ketones (Stick) Negative mg/dL (NEG) Urine Blood Negative (NEG) Urine Nitrite Negative (NEG) Urine Bilirubin Negative (NEG) Urine Urobilinogen Dipstick 0.2 mg/dL (0.2 mg/dL) Urine Leukocyte Esterase Negative (NEG) Urine RBC 0 /HPF (0-2) Urine WBC Rare /HPF (0-4) Urine Squamous Epithelial Cells Few /LPF Urine Bacteria Few /HPF (0-FEW) Laboratory Tests 04/18/17 20:30 Laboratory Tests 04/18/17 20:30 EKG EKG interpreted by me: NSR rate 94, no acute ST/T wave changes, normal intervals, no ectopy. artifact.[] Radiology/Procedures Radiology/Procedures XR lumbar spine 3 views: interpreted by me: no fracture, normal alignment. PROCEDURE: CT HEAD AND CERVICAL SPINE WO EXAM: Head CT and cervical spine without contrast. HISTORY: Trauma. TECHNIQUE: Computed tomographic images of the head and cervical spine were obtained without contrast. *One or more of the following individualized dose reduction techniques were utilized for this examination: 1. Automated exposure control. 2. Adjustment of the mA and/or kV according to patient size. 3. Use of iterative reconstruction technique. COMPARISON: 01/02/2017. FINDINGS: Head: There is no hemorrhage. There is no mass effect or midline shift. There is no hydrocephalus. The cox and white matter differentiation pattern is intact. There is mild age-appropriate cerebral volume loss. The visualized portions the orbits, paranasal sinus mastoid air cells are unremarkable. No calvarial lesion is seen. Cervical spine: There is mild listhesis at multiple levels. There is degenerative endplate remodeling with disc space narrowing and osteophytosis primarily at C4-C5 and C5-C6. There is patchy sclerosis predominantly within these vertebral segments. At C2-C3, there is no stenosis. At C3-C4, there is mild facet arthropathy. There is no stenosis. At C4-C5, there is a broad-based posterior central disc protrusion superimposed on a disc bulge and endplate osteophytosis. There is mild left facet arthropathy. There is uncovertebral arthropathy. There is mild bilateral foraminal stenosis. At C5-C6, there is a posterior central disc protrusion superimposed on a disc bulge and endplate osteophytosis. There is mild left facet arthropathy. There is left uncovertebral arthropathy. There is mild left foraminal and central canal stenosis. At C6-C7, there is a disc bulge and endplate remodeling. There is mild left facet arthropathy. There is no stenosis. IMPRESSION: 1. No acute intracranial finding or evidence of acute cervical spine trauma. 2. Multilevel degenerative change within the cervical spine, described above. 3. Patchy sclerosis within the mid cervical vertebral bodies. In the absence of known malignancy, this likely degenerative in etiology. Electronically signed by: Mayra Coyne MD (04/18/2017 8:53 PM) [facility] DICTATED and SIGNED BY: MAYRA COYNE MD DATE: 04/18/172049 [] Course & Med Decision Making Course & Med Decision Making Pertinent Labs and Imaging studies reviewed. (See chart for details) The patient presents with multiple falls possibly syncopal. Workup did not reveal obvious cause of syncope or serious injury. Discussed at length with patient & family; they do not feel that she is safe at her home at this time. They request admission. She is unable to ambulate safely, anticoagulated, increased unsteadiness with ambulation. Discussed with Dr. Zacarias who agrees to admit to observation status, neurology consult to Dr. Hilton. The patient is admitted in stable condition. [] Dragon Disclaimer Dragon Disclaimer This electronic medical record was generated, in whole or in part, using a voice recognition dictation system. Departure Departure Impression: Primary Impression: Syncope Disposition: ADMITTED INPATIENT Admitting Physician: Gisela Castro Condition: STABLE Referrals: Meagan CASTRO MD (PCP) SUNG METZGER MD Apr 18, 2017 23:58
[2017-04-19] VITALS (7 sets, daily range): BP systolic 119–146; BP diastolic 57–77
[2017-04-19] MEDS: MORPHINE SULFATE 2 MG/ML DISP.SYRIN. IV PRN ×4 (00:39→07:59)
[2017-04-19 04:43] LABS: BASO # 0.1 x10^3/uL (0.0-0.2); BASO % 1 % (0-3); EOS % 3 % (0-3); HEMATOCRIT 41.9 % (36.0-47.0); HEMOGLOBIN 14.2 g/dL (12.0-15.5); LYMPH # 3.6 x10^3/uL (1.0-4.8); LYMPH % 39 % (24-48); MEAN CORPUSCULAR HEMOGLOBIN 29 pg (25-35); MEAN CORPUSCULAR HGB CONC 34 g/dL (31-37); MEAN CORPUSCULAR VOLUME 86 fL (79-100); MONO % 6 % (0-9); NEUT % 52 % (31-73); PLATELET COUNT 304 x10^3/uL (140-400); RED BLOOD COUNT 4.85 x10^6/uL (3.50-5.40); RED CELL DISTRIBUTION WIDTH 14.5 % (11.5-14.5); WHITE BLOOD COUNT 9.3 x10^3/uL (4.0-11.0)
[2017-04-19 05:00] LABS: CALCIUM 9.2 mg/dL (8.5-10.1); CREATININE 0.8 mg/dL (0.6-1.0); POTASSIUM 3.9 mmol/L (3.5-5.1)
--- NOTE | 2017-04-19 06:20 | EKG ---
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
--- NOTE | 2017-04-19 07:47 | RAD ---
Exam performed: X-ray lumbar spine. History: Lower back pain radiating to the left lateral, history of fall today. Date of service: 04/18/17. Comparison: X-ray lumbar spine from 02/25/16. Findings: 5 nonrib-bearing vertebral bodies identified. Normal sagittal alignment is preserved. The vertebral body heights are maintained. There is narrowing of L1/2, L3/4 and L4/5 intervertebral disc spaces with mild diffuse osteophytic spurring. No acute compression fracture. No prevertebral soft tissue swelling. Only the lumbosacral junction demonstrates no additional abnormality. Previous cholecystectomy. 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 No acute abnormality seen.
[2017-04-19] MEDS ORDERED: ALBUTEROL SULFATE 2.5 MG/3 ML NEBU. NEB PRN (08:45)
[2017-04-19] MEDS ORDERED: LEVALBUTEROL TARTRATE IH PRN (08:45)
[2017-04-19] MEDS ORDERED: diphenhydrAMINE HCL 25 MG CAPSULE PO PRN (08:45)
--- NOTE | 2017-04-19 08:51 | PDOC ---
PROGRESS NOTES Subjective Subjective Patient reports some lightheadedness when first standing up. Denies CP or SOA. Low back hurts where she struck it when she fell several days ago. Objective Objective Vital Signs Date Time Temp Pulse Resp B/P (MAP) Pulse Ox O2 Delivery O2 Flow Rate FiO2 04/19/17 07:59 Room Air 04/19/17 07:00 97.9 77 20 126/66 (86) 93 97.9 Physical Exam Abdomen: Normal bowel sounds, Soft, No tenderness Heart: Regular rate Extremities: No edema General: Alert, Oriented X3, No acute distress Lungs: Clear to auscultation MUSCULOSKELETAL: Other (mild TTP over low back) Psych/Mental Status: Mental status NL Plan Plan of Care 1. Falls at home - patient reports some lightheadedness when first standing up and loss of balance associated with this. No evidence of CVA. Will check orthostatics, have PT to see her to evaluate safety. Patient has a walker at home but hasn't been using it recently. CT head and C spine without acute findings. Doubt syncope. Sinus rhythm on telemetry. Anticipate home later today if she remains stable. 2. HTN - hold Lisinopril for now and check BP. Continue Metoprolol. 3. DM2 - continue insulins. 4. asthma - stable, continue inhalers. 5. anticoagulation due to history of PE's - INR good, continue her usual Coumadin. 6. chronic anxiety and depression - well controlled, continue Cymbalta. 7. back pain after fall - xrays lumbar spine without acute findings. Tylenol prn. Comment Review of Relevant I have reviewed the following items cameron (where applicable) has been applied. Labs Laboratory Tests Test 04/18/17 20:30 04/18/17 21:11 04/19/17 04:20 04/19/17 07:15 White Blood Count 10.9 x10^3/uL (4.0-11.0) 9.3 x10^3/uL (4.0-11.0) Red Blood Count 4.90 x10^6/uL (3.50-5.40) 4.85 x10^6/uL (3.50-5.40) Hemoglobin 14.4 g/dL (12.0-15.5) 14.2 g/dL (12.0-15.5) Hematocrit 42.4 % (36.0-47.0) 41.9 % (36.0-47.0) Mean Corpuscular Volume 87 fL (79-100) 86 fL (79-100) Mean Corpuscular Hemoglobin 29 pg (25-35) 29 pg (25-35) Mean Corpuscular Hemoglobin Concent 34 g/dL (31-37) 34 g/dL (31-37) Red Cell Distribution Width 14.5 % (11.5-14.5) 14.5 % (11.5-14.5) Platelet Count 306 x10^3/uL (140-400) 304 x10^3/uL (140-400) Neutrophils (%) (Auto) 63 % (31-73) 52 % (31-73) Lymphocytes (%) (Auto) 29 % (24-48) 39 % (24-48) Monocytes (%) (Auto) 6 % (0-9) 6 % (0-9) Eosinophils (%) (Auto) 2 % (0-3) 3 % (0-3) Basophils (%) (Auto) 0 % (0-3) 1 % (0-3) Neutrophils # (Auto) 6.8 x10^3uL (1.8-7.7) 4.8 x10^3uL (1.8-7.7) Lymphocytes # (Auto) 3.2 x10^3/uL (1.0-4.8) 3.6 x10^3/uL (1.0-4.8) Monocytes # (Auto) 0.6 x10^3/uL (0.0-1.1) 0.5 x10^3/uL (0.0-1.1) Eosinophils # (Auto) 0.3 x10^3/uL (0.0-0.7) 0.3 x10^3/uL (0.0-0.7) Basophils # (Auto) 0.0 x10^3/uL (0.0-0.2) 0.1 x10^3/uL (0.0-0.2) Prothrombin Time 26.9 SEC (11.7-14.0) Prothromb Time International Ratio 2.7 (0.8-1.1) Activated Partial Thromboplast Time 45 SEC (24-38) Sodium Level 131 mmol/L (136-145) 136 mmol/L (136-145) Potassium Level 3.8 mmol/L (3.5-5.1) 3.9 mmol/L (3.5-5.1) Chloride Level 94 mmol/L (98-107) 98 mmol/L (98-107) Carbon Dioxide Level 26 mmol/L (21-32) 29 mmol/L (21-32) Anion Gap 11 (6-14) 9 (6-14) Blood Urea Nitrogen 13 mg/dL (7-20) 12 mg/dL (7-20) Creatinine 0.8 mg/dL (0.6-1.0) 0.8 mg/dL (0.6-1.0) Estimated GFR (Cockcroft-Gault) 72.0 72.0 BUN/Creatinine Ratio 16 (6-20) Glucose Level 215 mg/dL (70-99) 215 mg/dL (70-99) Calcium Level 9.4 mg/dL (8.5-10.1) 9.2 mg/dL (8.5-10.1) Magnesium Level 1.6 mg/dL (1.8-2.4) Total Bilirubin 0.2 mg/dL (0.2-1.0) Aspartate Amino Transf (AST/SGOT) 25 U/L (15-37) Alanine Aminotransferase (ALT/SGPT) 22 U/L (14-59) Alkaline Phosphatase 136 U/L (46-116) Troponin I Quantitative < 0.017 ng/mL (0.000-0.055) ZA-Gry-P-Type Natriuretic Peptide 22 pg/mL (0-124) Total Protein 7.0 g/dL (6.4-8.2) Albumin 3.1 g/dL (3.4-5.0) Albumin/Globulin Ratio 0.8 (1.0-1.7) Urine Collection Type Unknown Urine Color Straw Urine Clarity Clear Urine pH 6.5 Urine Specific Wiley <=1.005 Urine Protein Negative mg/dL (NEG-TRACE) Urine Glucose (UA) Negative mg/dL (NEG) Urine Ketones (Stick) Negative mg/dL (NEG) Urine Blood Negative (NEG) Urine Nitrite Negative (NEG) Urine Bilirubin Negative (NEG) Urine Urobilinogen Dipstick 0.2 mg/dL (0.2 mg/dL) Urine Leukocyte Esterase Negative (NEG) Urine RBC 0 /HPF (0-2) Urine WBC Rare /HPF (0-4) Urine Squamous Epithelial Cells Few /LPF Urine Bacteria Few /HPF (0-FEW) Glucose (Fingerstick) 230 mg/dL (70-99) Laboratory Tests Test 04/18/17 20:30 04/18/17 21:11 04/19/17 04:20 04/19/17 07:15 White Blood Count 10.9 x10^3/uL (4.0-11.0) 9.3 x10^3/uL (4.0-11.0) Red Blood Count 4.90 x10^6/uL (3.50-5.40) 4.85 x10^6/uL (3.50-5.40) Hemoglobin 14.4 g/dL (12.0-15.5) 14.2 g/dL (12.0-15.5) Hematocrit 42.4 % (36.0-47.0) 41.9 % (36.0-47.0) Mean Corpuscular Volume 87 fL (79-100) 86 fL (79-100) Mean Corpuscular Hemoglobin 29 pg (25-35) 29 pg (25-35) Mean Corpuscular Hemoglobin Concent 34 g/dL (31-37) 34 g/dL (31-37) Red Cell Distribution Width 14.5 % (11.5-14.5) 14.5 % (11.5-14.5) Platelet Count 306 x10^3/uL (140-400) 304 x10^3/uL (140-400) Neutrophils (%) (Auto) 63 % (31-73) 52 % (31-73) Lymphocytes (%) (Auto) 29 % (24-48) 39 % (24-48) Monocytes (%) (Auto) 6 % (0-9) 6 % (0-9) Eosinophils (%) (Auto) 2 % (0-3) 3 % (0-3) Basophils (%) (Auto) 0 % (0-3) 1 % (0-3) Neutrophils # (Auto) 6.8 x10^3uL (1.8-7.7) 4.8 x10^3uL (1.8-7.7) Lymphocytes # (Auto) 3.2 x10^3/uL (1.0-4.8) 3.6 x10^3/uL (1.0-4.8) Monocytes # (Auto) 0.6 x10^3/uL (0.0-1.1) 0.5 x10^3/uL (0.0-1.1) Eosinophils # (Auto) 0.3 x10^3/uL (0.0-0.7) 0.3 x10^3/uL (0.0-0.7) Basophils # (Auto) 0.0 x10^3/uL (0.0-0.2) 0.1 x10^3/uL (0.0-0.2) Prothrombin Time 26.9 SEC (11.7-14.0) Prothromb Time International Ratio 2.7 (0.8-1.1) Activated Partial Thromboplast Time 45 SEC (24-38) Sodium Level 131 mmol/L (136-145) 136 mmol/L (136-145) Potassium Level 3.8 mmol/L (3.5-5.1) 3.9 mmol/L (3.5-5.1) Chloride Level 94 mmol/L (98-107) 98 mmol/L (98-107) Carbon Dioxide Level 26 mmol/L (21-32) 29 mmol/L (21-32) Anion Gap 11 (6-14) 9 (6-14) Blood Urea Nitrogen 13 mg/dL (7-20) 12 mg/dL (7-20) Creatinine 0.8 mg/dL (0.6-1.0) 0.8 mg/dL (0.6-1.0) Estimated GFR (Cockcroft-Gault) 72.0 72.0 BUN/Creatinine Ratio 16 (6-20) Glucose Level 215 mg/dL (70-99) 215 mg/dL (70-99) Calcium Level 9.4 mg/dL (8.5-10.1) 9.2 mg/dL (8.5-10.1) Magnesium Level 1.6 mg/dL (1.8-2.4) Total Bilirubin 0.2 mg/dL (0.2-1.0) Aspartate Amino Transf (AST/SGOT) 25 U/L (15-37) Alanine Aminotransferase (ALT/SGPT) 22 U/L (14-59) Alkaline Phosphatase 136 U/L (46-116) Troponin I Quantitative < 0.017 ng/mL (0.000-0.055) ZV-Snr-F-Type Natriuretic Peptide 22 pg/mL (0-124) Total Protein 7.0 g/dL (6.4-8.2) Albumin 3.1 g/dL (3.4-5.0) Albumin/Globulin Ratio 0.8 (1.0-1.7) Urine Collection Type Unknown Urine Color Straw Urine Clarity Clear Urine pH 6.5 Urine Specific Wiley <=1.005 Urine Protein Negative mg/dL (NEG-TRACE) Urine Glucose (UA) Negative mg/dL (NEG) Urine Ketones (Stick) Negative mg/dL (NEG) Urine Blood Negative (NEG) Urine Nitrite Negative (NEG) Urine Bilirubin Negative (NEG) Urine Urobilinogen Dipstick 0.2 mg/dL (0.2 mg/dL) Urine Leukocyte Esterase Negative (NEG) Urine RBC 0 /HPF (0-2) Urine WBC Rare /HPF (0-4) Urine Squamous Epithelial Cells Few /LPF Urine Bacteria Few /HPF (0-FEW) Glucose (Fingerstick) 230 mg/dL (70-99) Medications Current Medications Ondansetron HCl (Zofran) 4 mg PRN Q8HRS PRN IV NAUSEA/VOMITING; Start 04/18/17 at 22:15; Stop 04/19/17 at 22:14 Morphine Sulfate 2 mg PRN Q2HR PRN IV SEVERE PAIN Last administered on t 07:59; Start 04/18/17 at 22:15; Stop 04/19/17 at 22:14 Acetaminophen (Tylenol) 650 mg PRN Q4HRS PRN PO FEVER; Start 04/18/17 at 22:15 ; Stop 04/19/17 at 22:14 Active Scripts Active Zofran (Ondansetron Hcl) 4 Mg Tablet 4 Mg PO BID PRN Benadryl (Diphenhydramine Hcl) 25 Mg Capsule 25 Mg PO PRN Q4HRS PRN [Ipratropium/Albuterol Sulfate] 3 ML Nebu 3 Ml NEB RTQID [Guaifenesin/Dextromethorphan] 10 ML Syrup 10 Ml PO PRN Q4HRS PRN Reported Levemir (Insulin Detemir) 100 Unit/1 Ml Vial 22 Unit SQ HS Novolog Flexpen (Insulin Aspart) 100 Unit/1 Ml Insuln.pen 13 Unit SQ TIDAC Coumadin (Warfarin Sodium) 10 Mg Tablet 10 Mg PO DAILY Levemir (Insulin Detemir) 100 Unit/1 Ml Vial 44 Unit SQ DAILY08 Metoprolol Succinate ( Xl ) (Metoprolol Succinate) 25 Mg Tab.er.24h 1 Tab PO DAILY Vytorin 10-10 Mg Tablet (Ezetimibe/Simvastatin) 1 Each Tablet 1 Each PO HS Xopenex Hfa (Levalbuterol Tartrate) 15 Gm Hfa.aer.ad 15 Gm IH PRN BID PRN Spiriva (Tiotropium [place]) 18 Mcg Cap.w.dev 18 Mcg IH DAILY Advair 250-50 Diskus (Fluticasone/Salmeterol) 1 Each Disk.w.dev 1 Each IH BID94 Cymbalta (Duloxetine Hcl) 60 Mg Capsule.dr 90 Mg PO DAILY Singulair Tablet (Montelukast Sodium) 10 Mg Tablet 10 Mg PO HS Lisinopril 40 Mg Tablet 20 Mg PO DAILY Vitals/I & O Vital Sign - Last 24 Hours 04/18/17 04/18/17 04/18/17 04/18/17 20:02 22:00 22:30 22:30 Temp 99.4 99.4 Pulse 94 84 87 Resp 16 16 18 20 B/P (MAP) 162/87 (112) 162/80 (107) 167/79 (108) Pulse Ox 96 97 94 95 O2 Delivery Room Air Room Air Room Air 04/18/17 04/18/17 04/19/17 04/19/17 23:00 23:30 00:39 02:38 Temp 99.1 99.1 Pulse 83 Resp 18 16 18 B/P (MAP) 152/82 (105) Pulse Ox 95 O2 Delivery Room Air Room Air Room Air Room Air 04/19/17 04/19/17 04/19/17 04/19/17 02:49 05:27 07:00 07:59 Temp 98.8 97.9 98.8 97.9 Pulse 82 77 Resp 18 16 20 B/P (MAP) 145/72 (96) 126/66 (86) Pulse Ox 95 93 O2 Delivery Room Air Nasal Cannula Room Air Room Air NIKO GIBBONS MD Apr 19, 2017 08:51
[2017-04-19] MEDS ORDERED: ONDANSETRON ODT 4 MG TAB.RAPDIS. PO PRN (09:00)
[2017-04-19] MEDS ORDERED: NON FORMULARY ITEM (Fluticasone/Salmeterol (Advair 250-50 Diskus) 1 EACH) IH SCH (09:00)
[2017-04-19] MEDS ORDERED: BUDESONIDE 0.5 MG/2 ML NEBU. NEB SCH (09:30)
[2017-04-19] MEDS ORDERED: INSULIN DETEMIR 300 UNITS/3 ML INSULN.PEN. SQ SCH ×2 (09:30→21:00)
[2017-04-19] MEDS ORDERED: DULoxetine HCL 30 MG CAPSULE.DR PO SCH (09:30)
[2017-04-19] MEDS ORDERED: METOPROLOL SUCC 24HR ER 25 MG TAB.ER.24H. PO SCH (09:30)
[2017-04-19] MEDS: ACETAMINOPHEN 325 MG TABLET. PO PRN ×2 (09:37→15:50)
[2017-04-19] MEDS ORDERED: INSULIN ASPART 300 UNITS/3 ML INSULN.PEN SQ SCH (11:30)
[2017-04-19] MEDS: ALBUTEROL SULFATE 2.5 MG/3 ML NEBU. NEB SCH ×2 (11:37→16:00)
[2017-04-19] MEDS ORDERED: WARFARIN 10 MG TABLET. PO SCH (16:00)
--- NOTE | 2017-04-19 16:24 | DS ---
DATE OF DISCHARGE: 04/19/2017 Twenty three hour summary. This is a combined history and physical and discharge summary. CHIEF COMPLAINT: Falls at home. HISTORY OF PRESENT ILLNESS: The patient is a 66-year-old female who was brought to the Emergency Room by her family with the above concern. They reported that the patient had experienced several falls at home within the past week. She reports that she would stand up and starts to feel lightheaded. She did fall to the ground once several days ago and hit her back on a piece of furniture, several other times she caught herself on the wall and did not actually fall to the floor. She does not think she experienced any loss of consciousness with these episodes. Initial evaluation in the Emergency Room included laboratory, which was unremarkable. CT of the head and cervical spine was without acute findings. X-rays of the lumbar spine showed some mild arthritis and degenerative disk disease, but no acute findings. Due to concerns for the patient safety, she was admitted overnight for observation. PAST MEDICAL HISTORY: Coronary artery disease, hypertension, asthma, multiple pulmonary emboli, GERD, irritable bowel disease, chronic anxiety and depression, diabetes mellitus type 2, insulin-dependent. PAST SURGICAL HISTORY: Appendectomy, breast biopsy, cholecystectomy, cataract removal, multiple abdominal hernia repairs, tonsillectomy, hysterectomy, bilateral shoulder replacements. ALLERGIES: THE PATIENT IS ALLERGIC OR INTOLERANT TO PENICILLIN, SULFA, FENTANYL, GLUTEN ____ METHYLPREDNISOLONE, OXYCODONE AND PREDNISONE. HOME MEDICATIONS: Benadryl p.r.n., Cymbalta 90 mg daily, Vytorin 10/10 one daily, Advair 250/50 one puff b.i.d., NovoLog insulin 13 units t.i.d. a.c., Levemir insulin 22 units at bedtime and 44 units in the a.m., Xopenex p.r.n., lisinopril 20 mg daily, Toprol-XL 25 mg daily, Singulair 10 mg daily, Zofran p.r.n., Spiriva 1 puff daily, Coumadin 10 mg daily. FAMILY HISTORY: Noncontributory. SOCIAL HISTORY: The patient is . She lives with several family members. She does not smoke cigarettes or drink alcohol. REVIEW OF SYSTEMS: The patient states she was feeling well prior to the onset of her symptoms. She denies fever or chills. She denies cough or shortness of breath and feels her asthma is well controlled with her usual inhalers. She denies chest pain or palpitations. She denies abdominal pain, nausea or vomiting. She has not had problems with her bowels. She denies lower extremity edema. Her mood has been good with her usual medication. She is having some low back pain after her fall, but does not have numbness or tingling in her legs. PHYSICAL EXAMINATION: GENERAL: The patient is alert and oriented x 3, resting comfortably in bed in no acute distress. HEENT: PERRL, EOMI, sclerae clear. Oropharynx: Mucous membranes moist. NECK: Supple, without lymphadenopathy. CHEST: Clear to auscultation with normal respiratory effort and good breath sounds throughout. CARDIOVASCULAR: Regular rhythm without murmur. ABDOMEN: Soft, nontender, normoactive bowel sounds are present. EXTREMITIES: Without edema. BACK: There is mild diffuse tenderness to palpation over the low back. HOSPITAL COURSE: The patient was admitted and placed on telemetry where she remained in sinus rhythm. Physical therapy saw her for an evaluation and reported that she ambulated with a normal gait and did not need any assistive device. She appeared to be at her baseline mobility. It is possible that orthostasis contributed to the patient's symptoms as she reported that she felt lightheaded upon first standing. While in the hospital, she received her usual metoprolol, but her lisinopril was held. During the day today, she has had a blood pressure from 119 systolic to a high of 146 systolic, without the lisinopril. Orthostatic blood pressures were checked and she was not orthostatic when she stood up; however, it is possible that her blood pressure had been running low with the lisinopril and we will therefore not continue this at discharge. The patient's other chronic medical conditions remained stable. Her diabetes is controlled with insulin and her asthma is stable. Her INR is therapeutic at 2.7 with her usual dose of Coumadin and this will be continued. She is advised to take some Tylenol as needed for her back pain. The patient will be discharged to home later today with her family. FINAL DIAGNOSES: 1. Falls at home. 2. Hypertension with possible orthostasis. 3. Diabetes mellitus type 2. 4. Asthma. 5. Chronic anticoagulation. 6. Chronic anxiety and depression. DISCHARGE MEDICATIONS: Remain the same as at admission, except that the patient is advised to hold her lisinopril and we will check her blood pressure in the office. Follow up is with Dr. Castro within 2 weeks. NIKO GIBBONS MD DR: CECELIA/alyce JOB#: [id number] / [id number] TRENT
[2017-04-19] MEDS ORDERED: EZETIMIBE PO SCH (21:00)
[2017-04-19] MEDS ORDERED: SIMVASTATIN PO SCH (21:00)
[2017-04-19] MEDS ORDERED: EZETIMIBE 10 MG TABLET. PO SCH (21:00)
[2017-04-19] MEDS ORDERED: SIMVASTATIN 10 MG TABLET PO SCH (21:00)
[2017-04-19] MEDS ORDERED: MONTELUKAST SODIUM 10 MG TABLET. PO SCH (21:00)
--- NOTE | 2017-04-20 17:18 | SSS ---
ADMIT DATE: 04/19/2017 Twenty three hour summary. This is a combined history and physical on discharge summary. CHIEF COMPLAINT: Falls at home. HISTORY OF PRESENT ILLNESS: The patient is a 66-year-old female who was brought to the Emergency Room by her family with the above concerns. They reported that the patient had experienced several falls at home within the past week, she reports that she would stand up and starts to feel lightheaded. She did fall to the ground once several days ago and hit her back on a piece of furniture, several other times she caught herself on the wall and did not actually fall to the floor. She does not think she experienced any loss of consciousness with these episodes. Initial evaluation in the Emergency Room included laboratory, which was unremarkable. CT of the head and cervical spine was without acute findings. X-rays of the lumbar spine showed some mild arthritis and degenerative disk disease, but no acute findings. Due to concerns for the patient safety, she was admitted overnight for extubation. PAST MEDICAL HISTORY: Coronary artery disease, hypertension, asthma, multiple pulmonary emboli, GERD, irritable bowel disease, chronic anxiety and depression, diabetes mellitus type 2, insulin-dependent. PAST SURGICAL HISTORY: Appendectomy, breast biopsy, cholecystectomy, cataract removal, multiple abdominal hernia repairs, tonsillectomy, hysterectomy, bilateral shoulder replacements. ALLERGIES: THE PATIENT IS ALLERGIC OR INTOLERANT TO PENICILLIN, SULFA, FENTANYL, GLUTEN ____ METHYLPREDNISOLONE, OXYCODONE AND PREDNISONE. HOME MEDICATIONS: Benadryl p.r.n., Cymbalta 90 mg daily, Vytorin 10/10 one daily, Advair 250/50 one puff b.i.d., NovoLog insulin 13 units t.i.d. a.c., Levemir insulin 22 units at bedtime and 44 units in the a.m., Xopenex p.r.n., lisinopril 20 mg daily, Toprol-XL 25 mg daily, Singulair 10 mg daily, Zofran p.r.n., Spiriva 1 puff daily, Coumadin 10 mg daily. FAMILY HISTORY: Noncontributory. SOCIAL HISTORY: The patient is . She lives with several family members. She does not smoke cigarettes or drink alcohol. REVIEW OF SYSTEMS: The patient states she was feeling well prior to the onset of her symptoms. She denies fever or chills. She denies cough or shortness of breath and feels her asthma is well controlled with her usual inhalers. She denies chest pain or palpitations. She denies abdominal pain, nausea or vomiting. She has not had problems with her bowels. She denies lower extremity edema. Her mood has been good with her usual medication. She is having some low back pain after her fall, but does have numbness or tingling in her legs. PHYSICAL EXAMINATION: GENERAL: The patient is alert and oriented x 3, resting comfortably in bed in no acute distress. HEENT: PERRL, EOMI, sclerae clear. Oropharynx: Mucous membranes moist. NECK: Supple, without lymphadenopathy. CHEST: Clear to auscultation with normal respiratory effort and good breath sounds throughout. CARDIOVASCULAR: Regular rhythm without murmur. ABDOMEN: Soft, nontender, normoactive bowel sounds are present. EXTREMITIES: Without edema. BACK: There is mild diffuse tenderness to palpation over the low back. HOSPITAL COURSE: The patient was admitted and placed on telemetry where she remained in sinus rhythm. Physical therapy saw her for an evaluation and reported that she ambulated with a normal gait and did not need any assistive device. She appeared to be at her baseline mobility. It is possible that orthostasis contributed to the patient's symptoms as she reported that she felt lightheaded upon first standing. While in the hospital, she received her usual metoprolol, but her lisinopril was held. During the day today, she has had a blood pressure from 119 systolic to a high of 146 systolic, without the lisinopril. Orthostatic blood pressures were checked and she was not orthostatic when she stood up; however, it is possible that her blood pressure had been running low with the lisinopril and we will therefore not continue this at discharge. The patient's other chronic medical conditions remained stable. Her diabetes is controlled with insulin and her asthma is stable. Her INR is therapeutic at 2.7 with her usual dose of Coumadin and this will be continued. She is advised to take some Tylenol as needed for her back pain. The patient will be discharged to home later today with her family. FINAL DIAGNOSES: 1. Falls at home. 2. Hypertension with possible orthostasis. 3. Diabetes mellitus type 2. 4. Asthma. 5. Chronic anticoagulation. 6. Chronic anxiety and depression. DISCHARGE MEDICATIONS: Remain the same as at admission, except that the patient is advised to hold her lisinopril and we will check her blood pressure in the office. Follow up is with Dr. Castro within 2 weeks. NIKO GIBBONS MD DR: CECELIA/alyce JOB#: [id number] / [id number]
== END 2017-04-19 17:30 | disposition home or self-care (01) ==
LOC: ER 19:52 → 6 SOUTH 21:31
PROVIDERS: ADMIT Family Medicine; ATTEND Family Medicine
DX: R42 Dizziness and giddiness (principal); M54.9 Dorsalgia, unspecified; I10 Essential (primary) hypertension; E10.9 Type 1 diabetes mellitus without complications; J44.9 Chronic obstructive pulmonary disease, unspecified; M19.90 Unspecified osteoarthritis, unspecified site; M51.36 Other intervertebral disc degeneration, lumbar region; F41.9 Anxiety disorder, unspecified; F32.9 Major depressive disorder, single episode, unspecified; I25.10 Atherosclerotic heart disease of native coronary artery without angina pectoris; K21.9 Gastro-esophageal reflux disease without esophagitis; K58.9 Irritable bowel syndrome, unspecified; G47.30 Sleep apnea, unspecified; R29.6 Repeated falls; Z79.01 Long term (current) use of anticoagulants; Z79.4 Long term (current) use of insulin; Z86.711 Personal history of pulmonary embolism; Z90.710 Acquired absence of both cervix and uterus
CPT/HCPCS: 36415; 70450; 72100; 72125; 80048; 80053; 81001; 82962; 83735; 83880; 84484; 85025; 85610; 85730; 87641; 93005; 94250; 94640; 94760; 96372; 96374; 96376; 97161; 99285; G0378; J1815; J2270; J7613; J7626; G0379

== ENCOUNTER 2017-05-28 20:26 | Emergency (ER) | payer BC, OTHER ==
[~2017-05-28] VITALS: Ht 165.1 cm; Wt 120.7 kg
[~2017-05-28 20:26] MED LIST changes: +HYDR-2762 PO; +METO-239 PO; +METO-247 PO; -METO100T11 PO; -METO25TA9 PO
--- NOTE | 2017-05-28 21:01 | PHYS DOC ---
Past Medical History Past Medical History: Asthma, COPD, Diabetes-Type I Additional Past Medical Histor: PE, sleep apnea Past Surgical History: Cholecystectomy, Hysterectomy Additional Past Surgical Histo: bilateral cataract, bilater shoulder, hernia x7 Alcohol Use: None Drug Use: None Adult General Chief Complaint Chief Complaint: MULTIPLE COMPLAINTS HPI HPI Patient is a 67 year old female who presents with his tree of COPD, asthma diabetes and anxiety is well-known to this institution who presents with multiple medical complaints. Patient reports nasal congestion, rhinorrhea, scratchy, sore throat, occasional cough and sinus dryness. Symptoms began earlier today. No fever, chills, nausea, vomiting, chest pain, shortness of breath. Patient has not had increased nebulizer or inhaler use. No increased leg pain or swelling. Patient's accompanied at bedside by her daughter.[] Review of Systems Review of Systems Review symptoms as per history of present illness. All other review symptoms are negative. Allergies Allergies Allergies Coded Allergies Type Severity Reaction Last Updated Verified Penicillins Allergy Intermediate itching, dry mouth, tongue swells 12/16/15 Yes Sulfa (Sulfonamide Antibiotics) Allergy Intermediate ITCHING DRY MOUTH, hives/ swelling 12/16/15 Yes fentanyl Allergy Intermediate 12/16/15 Yes hydromorphone HCl Allergy Intermediate MORPHINE OK 12/16/15 Yes methylprednisolone Allergy Intermediate RED MAN SYNDROME 10/11/16 Yes prednisone Allergy Intermediate RED MED SYNDROME 10/11/16 Yes gluten Allergy Mild bloating 04/18/17 Yes I S O L A T I O N *CONTACT* Allergy Unknown 02/04/17 Yes oxycodone HCl Adverse Reaction Intermediate "i FEEL LIKE I HAVE WORMS IN ME" Yes Physical Exam Physical Exam Constitutional: Well developed, well nourished, no acute distress, non-toxic appearance. [] HENT: Normocephalic, atraumatic, bilateral external ears normal, oropharynx moist, nose normal. [] Eyes: PERRLA, EOMI, conjunctiva normal. [] Neck: Normal range of motion. [] Cardiovascular:Heart rate regular rhythm, no murmur. [] Lungs & Thorax: Bilateral breath sounds clear to auscultation. Mildly diminished breath sounds otherwise clear. No conversational dyspnea [] Abdomen: Bowel sounds normal, soft, no tenderness, no masses, no pulsatile masses. 1+, bipedal edema. [] Skin: Warm, dry, no erythema, no rash. [] Back: No tenderness. [] Extremities: No tenderness. Negative Homans signs. [] Neurologic: Alert and oriented X 3, normal motor function, normal sensory function, no focal deficits noted. [] Psychologic: Affect, anxious.[] EKG EKG [] Radiology/Procedures Radiology/Procedures [] Course & Med Decision Making Course & Med Decision Making Pertinent Labs and Imaging studies reviewed. (See chart for details) [Patient with mild upper respiratory tract complaints likely related to allergies or virus. Patient is clinically well-appearing and appears mostly anxious which is consistent with her normal presentation. Chest x-ray reviewed, no findings of pulmonary infiltrate or acute congestive heart failure. Recommend supportive care with close PCP follow-up. No medications dispensed this patient has multiple medication allergies.] Dragon Disclaimer Dragon Disclaimer This electronic medical record was generated, in whole or in part, using a voice recognition dictation system. Departure Departure Impression: Primary Impression: Pharyngitis Additional Impression: Upper respiratory infection Disposition: 01 HOME, SELF-CARE Condition: GOOD Referrals: Meagan ALVAREZ MD (PCP) Patient Instructions: Upper Respiratory Infection, Adult, [id number], Viral and Bacterial Pharyngitis, [id number] Additional Instructions: Please take Tylenol for pain and use salt water gargles for sore throat relief. Take Benadryl as needed for nasal congestion and follow-up with your PCP in 1-2 days for re-evaluation. Problem Qualifiers WAYLON NGUYEN DO May 28, 2017 21:01
[2017-05-28 21:40] VITALS: BP 168/76
--- NOTE | 2017-05-29 08:02 | RAD ---
Portable chest, 05/28/2017: History: Dyspnea Comparison is made to a study from 05/11/2017. The heart size and pulmonary vascularity are normal. There is a calcified granuloma in the left lung. No acute infiltrates are seen. There is no evidence of pleural fluid. Bilateral shoulder prostheses are in place. IMPRESSION: No acute cardiopulmonary abnormality is detected.
== END 2017-05-28 21:48 | disposition home or self-care (01) ==
LOC: ER 20:26
DX: J02.9 Acute pharyngitis, unspecified (principal); R05 Cough; R09.81 Nasal congestion; J44.9 Chronic obstructive pulmonary disease, unspecified; E10.9 Type 1 diabetes mellitus without complications; Z86.711 Personal history of pulmonary embolism; Z88.0 Allergy status to penicillin; Z88.2 Allergy status to sulfonamides; Z88.5 Allergy status to narcotic agent; Z91.041 Radiographic dye allergy status
CPT/HCPCS: 71010; 99283

== ENCOUNTER 2017-06-10 19:09 | Emergency (ER) | payer BC, OTHER ==
[~2017-06-10] VITALS: Ht 165.1 cm; Wt 120.7 kg
[2017-06-10] MEDS ORDERED: IV NORMAL SALINE 1000ML BAG 1,000 ML IV SCH (19:18)
[2017-06-10 19:41] LABS: BASO % 1 % (0-3); EOS % 1 % (0-3); HEMATOCRIT 39.3 % (36.0-47.0); HEMOGLOBIN 12.8 g/dL (12.0-15.5); LYMPH # 4.2 x10^3/uL (1.0-4.8); LYMPH % 49 % (24-48); MEAN CORPUSCULAR HEMOGLOBIN 29 pg (25-35); MEAN CORPUSCULAR HGB CONC 33 g/dL (31-37); MEAN CORPUSCULAR VOLUME 88 fL (79-100); MONO % 7 % (0-9); NEUT % 42 % (31-73); PLATELET COUNT 301 x10^3/uL (140-400); RED BLOOD COUNT 4.49 x10^6/uL (3.50-5.40); RED CELL DISTRIBUTION WIDTH 14.6 % (11.5-14.5); WHITE BLOOD COUNT 8.6 x10^3/uL (4.0-11.0)
[2017-06-10 19:58] LABS: HCO3 ABG 23 mmol/L (21-28); PCO2 ABG 30 mmHg (35-46); PO2 ABG 157 mmHg (65-108); SAT O2 ABG 99 % (92-99)
[2017-06-10 19:58] LABS: CREATININE 1.1 mg/dL (0.6-1.0); GFR 49.7; POTASSIUM 3.2 mmol/L (3.5-5.1)
[2017-06-10 20:02] LABS: FIO2 ABG 45
[2017-06-10 20:03] LABS: ALBUMIN 3.1 g/dL (3.4-5.0); ALBUMIN/GLOBULIN RATIO 0.8 (1.0-1.7); TOTAL BILIRUBIN 0.2 mg/dL (0.2-1.0)
[2017-06-10 20:12] LABS: CKMB MASS < 0.5 ng/mL (0.0-3.6); CREATINE KINASE 97 U/L (26-192)
--- NOTE | 2017-06-10 20:14 | PHYS DOC ---
Past Medical History Past Medical History: Asthma, COPD, Diabetes-Type I Additional Past Medical Histor: PE, sleep apnea Past Surgical History: Cholecystectomy, Hysterectomy Additional Past Surgical Histo: bilateral cataract, bilater shoulder, hernia x7 Alcohol Use: None Drug Use: None Adult General Chief Complaint Chief Complaint: DYSPNEA/RESPIRATOY DISTRESS HPI HPI Patient is a 67 year old female who presents with complaint of shortness of breath. Patient states that her symptoms started worsening today. The patient called EMS due to worsening shortness of breath. The patient has history of COPD has had multiple visits to this emergency department for similar complaints. The patient was found to have a room air oxygenation of 98%, however patient was very tachypneic and per EMS not moving air very well. Patient thus was laced on CPAP prior to arrival. On arrival the patient appears very anxious. The patient denies any recent fevers. Patient denies abdominal pain or vomiting with her symptoms. Patient does state that she feels lightheaded at this time. The patient was transitioned from CPAP to BiPAP during triage. Review of Systems Review of Systems Constitutional: Lightheadedness, denies fever or chills[] Eyes: Denies change in visual acuity, redness, or eye pain [] HENT: Denies nasal congestion or sore throat [] Respiratory: Shortness of breath, cough[] Cardiovascular: Denies chest pain or edema[] GI: Denies abdominal pain, nausea, vomiting, bloody stools or diarrhea [] : Denies dysuria or hematuria [] Musculoskeletal: Denies back pain or joint pain [] Integument: Denies rash or skin lesions [] Neurologic: Denies headache, focal weakness or sensory changes [] Current Medications Current Medications Current Medications Medications (Trade) Dose Ordered Sig/Irish Start Time Stop Time Status Last Admin Dose Admin Lorazepam (Ativan) 0.5 mg 1X ONCE 06/10/17 20:45 06/10/17 20:46 DC 06/10/17 20:22 0.5 MG Sodium Chloride 1,000 ml @ 100 mls/hr Q10H 06/10/17 19:18 06/11/17 05:17 06/10/17 19:39 100 MLS/HR Allergies Allergies Allergies Coded Allergies Type Severity Reaction Last Updated Verified Penicillins Allergy Intermediate itching, dry mouth, tongue swells 12/16/15 Yes Sulfa (Sulfonamide Antibiotics) Allergy Intermediate ITCHING DRY MOUTH, hives/ swelling 12/16/15 Yes fentanyl Allergy Intermediate 12/16/15 Yes hydromorphone HCl Allergy Intermediate MORPHINE OK 12/16/15 Yes methylprednisolone Allergy Intermediate RED MAN SYNDROME 10/11/16 Yes prednisone Allergy Intermediate RED MED SYNDROME 10/11/16 Yes gluten Allergy Mild bloating 04/18/17 Yes I S O L A T I O N *CONTACT* Allergy Unknown 02/04/17 Yes oxycodone HCl Adverse Reaction Intermediate "i FEEL LIKE I HAVE WORMS IN ME" Yes Physical Exam Physical Exam Constitutional: Alert, afebrile, appears in moderate distress. [] HENT: Normocephalic, atraumatic, bilateral external ears normal, oropharynx moist, no oral exudates, nose normal. [] Eyes: PERRLA, EOMI, conjunctiva normal, no discharge. [] Neck: Normal range of motion, no tenderness, supple, no stridor. [] Cardiovascular: Tachycardia, regular rhythm, no murmur [] Lungs & Thorax: Bilateral breath sounds clear to auscultation, no wheezes, rales [] Abdomen: Bowel sounds normal, soft, no tenderness, no masses, no pulsatile masses. [] Skin: Warm, dry, no erythema, no rash. [] Back: No tenderness, no CVA tenderness. [] Extremities: No tenderness, no cyanosis, no clubbing, ROM intact, no edema. [] Neurologic: Alert and oriented X 3, normal motor function, normal sensory function, no focal deficits noted. [] Current Patient Data Vital Signs Vital Signs Date Time Temp Pulse Resp B/P (MAP) Pulse Ox O2 Delivery O2 Flow Rate FiO2 06/10/17 21:30 104 20 145/64 (91) 92 Room Air 06/10/17 19:13 99.3 99.3 Lab Values Laboratory Tests Test 06/10/17 19:14 06/10/17 19:30 06/10/17 19:55 Glucose (Fingerstick) 411 mg/dL (70-99) H White Blood Count 8.6 x10^3/uL (4.0-11.0) Red Blood Count 4.49 x10^6/uL (3.50-5.40) Hemoglobin 12.8 g/dL (12.0-15.5) Hematocrit 39.3 % (36.0-47.0) Mean Corpuscular Volume 88 fL (79-100) Mean Corpuscular Hemoglobin 29 pg (25-35) Mean Corpuscular Hemoglobin Concent 33 g/dL (31-37) Red Cell Distribution Width 14.6 % (11.5-14.5) H Platelet Count 301 x10^3/uL (140-400) Neutrophils (%) (Auto) 42 % (31-73) Lymphocytes (%) (Auto) 49 % (24-48) H Monocytes (%) (Auto) 7 % (0-9) Eosinophils (%) (Auto) 1 % (0-3) Basophils (%) (Auto) 1 % (0-3) Neutrophils # (Auto) 3.6 x10^3uL (1.8-7.7) Lymphocytes # (Auto) 4.2 x10^3/uL (1.0-4.8) Monocytes # (Auto) 0.6 x10^3/uL (0.0-1.1) Eosinophils # (Auto) 0.1 x10^3/uL (0.0-0.7) Basophils # (Auto) 0.0 x10^3/uL (0.0-0.2) Sodium Level 135 mmol/L (136-145) L Potassium Level 3.2 mmol/L (3.5-5.1) L Chloride Level 95 mmol/L (98-107) L Carbon Dioxide Level 28 mmol/L (21-32) Anion Gap 12 (6-14) Blood Urea Nitrogen 18 mg/dL (7-20) Creatinine 1.1 mg/dL (0.6-1.0) H Estimated GFR (Cockcroft-Gault) 49.7 BUN/Creatinine Ratio 16 (6-20) Glucose Level 444 mg/dL (70-99) H Calcium Level 9.0 mg/dL (8.5-10.1) Total Bilirubin 0.2 mg/dL (0.2-1.0) Aspartate Amino Transferase (AST) 19 U/L (15-37) Alanine Aminotransferase (ALT) 22 U/L (14-59) Alkaline Phosphatase 133 U/L (46-116) H Creatine Kinase 97 U/L (26-192) Creatine Kinase MB (Mass) < 0.5 ng/mL (0.0-3.6) Creatine Kinase MB Relative Index % (0-4) Troponin I Quantitative < 0.017 ng/mL (0.000-0.055) MS-Byo-P-Type Natriuretic Peptide 54 pg/mL (0-124) Total Protein 7.0 g/dL (6.4-8.2) Albumin 3.1 g/dL (3.4-5.0) L Albumin/Globulin Ratio 0.8 (1.0-1.7) L O2 Saturation 99 % (92-99) Arterial Blood pH 7.50 (7.35-7.45) H Arterial Blood pCO2 at Patient Temp 30 mmHg (35-46) L Arterial Blood pO2 at Patient Temp 157 mmHg (65-108) H Arterial Blood HCO3 23 mmol/L (21-28) Arterial Blood Base Excess 1 mmol/L (-3-3) FiO2 45 Laboratory Tests 06/10/17 19:30 Laboratory Tests 06/10/17 19:30 EKG EKG Interpreted by me: Heart rate 108, sinus tachycardia, leftward axis, no acute ST /T-wave abnormalities present[] Radiology/Procedures Radiology/Procedures One view AP chest x-ray interpreted by me: No infiltrates, no effusions, normal cardiac silhouette[] Course & Med Decision Making Course & Med Decision Making Pertinent Labs and Imaging studies reviewed. (See chart for details) The patient showed evidence of hyperventilation on her ABG. BiPAP was discontinued in the emergency department. The patient was able to hold her oxygen saturations at 95% off of supplemental oxygen. Patient was ambulated in the emergency department and maintain oxygen saturations above 94% during ambulation. The patient's symptoms appear consistent with an acute anxiety episode. Patient was treated with IV Ativan which helped improve her symptoms. I recommended that the patient follow-up with her primary doctor in the next 2 days for reevaluation and recommended return emergency department for any worsening symptoms. Patient voiced understanding and in agreement with treatment plan. Dragon Disclaimer Dragon Disclaimer This electronic medical record was generated, in whole or in part, using a voice recognition dictation system. Departure Departure Impression: Primary Impression: Anxiety attack Additional Impression: COPD (chronic obstructive pulmonary disease) Disposition: 01 HOME, SELF-CARE Condition: IMPROVED Referrals: Meagan ALVAREZ MD (PCP) Patient Instructions: Anxiety and Panic Attacks, Chronic Obstructive Pulmonary Disease Additional Instructions: Follow-up with Dr. Alvarez in the next 2-3 days for reevaluation. Return to the emergency department for any worsening symptoms. Problem Qualifiers Additional Impression: COPD (chronic obstructive pulmonary disease) COPD type: unspecified COPD Qualified Codes: J44.9 - Chronic obstructive pulmonary disease, unspecified SANDRA ROSE MD Jun 10, 2017 20:14
[2017-06-10 22:30] VITALS: BP 147/67
--- NOTE | 2017-06-11 07:03 | EKG ---
[facility] [address] [place] [id number] Test Date: 2017-06-10 Test Time: 19:24:04 Pat Name: ELY CARDOZA Department: Room: Gender: F Library Monitor: : 1950 Requested By: SANDRA ROSE Order Number: [id number] Reading MD: Svetlana Laws Measurements Intervals [place] Rate: 108 P: 66 WI: 170 QRS: -26 QRSD: 88 T: 47 QT: 326 QTc: 441 Interpretive Statements SINUS TACHYCARDIA LEFTWARD AXIS T ABNORMALITY IN HIGH LATERAL LEADS Electronically Signed On 06-11-2017 19:54:03 CDT by Svetlana Laws
--- NOTE | 2017-06-11 08:50 | RAD ---
Portable chest, 06/10/2017: History: Chest pain Comparison is made to a study from 05/28/2017. The heart size and pulmonary vascularity are normal. There is a calcified granuloma in the left lung. No acute infiltrates are seen. There is no evidence of pleural fluid. Moderate spurring is present in the spine. Bilateral shoulder prostheses are in place. IMPRESSION: No acute cardiopulmonary abnormality is detected.
== END 2017-06-10 23:06 | disposition home or self-care (01) ==
LOC: ER 19:09
DX: J44.9 Chronic obstructive pulmonary disease, unspecified (principal); E10.9 Type 1 diabetes mellitus without complications; Z88.0 Allergy status to penicillin; Z88.2 Allergy status to sulfonamides; Z88.4 Allergy status to anesthetic agent; Z88.5 Allergy status to narcotic agent; Z88.8 Allergy status to other drugs, medicaments and biological substances; Z91.041 Radiographic dye allergy status
CPT/HCPCS: 36415; 36600; 71010; 80053; 82553; 82805; 82962; 83880; 84484; 85025; 93005; 96361; 96374; 99285; J2060; J7030

== ENCOUNTER 2017-06-23 19:30 | Emergency (ER) | payer BC, OTHER ==
[~2017-06-23] VITALS: Ht 167.6 cm; Wt 90.7 kg
[2017-06-23] MEDS: IV NORMAL SALINE 1000ML BAG 1,000 ML IV SCH (20:02)
[2017-06-23 20:20] VITALS: BP 118/70
[2017-06-23] MEDS: MORPHINE SULFATE 10 MG/ML VIAL. IV ONE ×2 (20:53→21:40)
[2017-06-23] MEDS: ONDANSETRON PF 4 MG/2 ML VIAL. IV ONE (20:53)
[2017-06-23 20:55] LABS: BASO % 1 % (0-3); EOS % 3 % (0-3); HEMATOCRIT 41.6 % (36.0-47.0); LYMPH # 2.4 x10^3/uL (1.0-4.8); LYMPH % 28 % (24-48); MEAN CORPUSCULAR HEMOGLOBIN 29 pg (25-35); MEAN CORPUSCULAR HGB CONC 34 g/dL (31-37); MEAN CORPUSCULAR VOLUME 86 fL (79-100); MONO % 6 % (0-9); NEUT % 63 % (31-73); PLATELET COUNT 257 x10^3/uL (140-400); RED BLOOD COUNT 4.87 x10^6/uL (3.50-5.40); RED CELL DISTRIBUTION WIDTH 14.5 % (11.5-14.5); WHITE BLOOD COUNT 8.7 x10^3/uL (4.0-11.0)
[2017-06-23 21:03] LABS: ANION GAP 12 (6-14); BLOOD UREA NITROGEN 13 mg/dL (7-20); BUN/CREATININE RATIO 16 (6-20); CALCIUM 8.8 mg/dL (8.5-10.1); CARBON DIOXIDE 26 mmol/L (21-32); CHLORIDE 97 mmol/L (98-107); CREATININE 0.8 mg/dL (0.6-1.0); GFR 71.8; GLUCOSE 196 mg/dL (70-99); POTASSIUM 3.2 mmol/L (3.5-5.1); SODIUM 135 mmol/L (136-145)
[2017-06-23 21:11] LABS: ALBUMIN/GLOBULIN RATIO 0.8 (1.0-1.7); ALK PHOS 130 U/L (46-116); ALT (SGPT) 19 U/L (14-59); TOTAL BILIRUBIN 0.2 mg/dL (0.2-1.0)
[2017-06-23 21:12] LABS: AST (SGOT) < 5 U/L (15-37)
--- NOTE | 2017-06-23 21:45 | PHYS DOC ---
Past Medical History Past Medical History: Asthma, COPD, Diabetes-Type I Additional Past Medical Histor: PE, sleep apnea Past Surgical History: Cholecystectomy, Hysterectomy, Other Additional Past Surgical Histo: bilateral cataract, bilater shoulder, hernia x7 Alcohol Use: None Drug Use: None Adult General Chief Complaint Chief Complaint: ABDOMINAL PAIN HPI HPI Patient is a 67 year old female brought to the ED by her daughter with the complaint of abdominal pain, vomiting, diarrhea, which all began today. Patient states she has had diarrhea more than 15 times. It is watery. She has vomited several times. It "tasted like blood" but she did not see any blood in it. Also complains of "severe" pain in her right lower abdomen. It feels like when she had a small bowel obstruction. She was hospitalized in April for a small bowel obstruction she states. She did not require surgery. Patient has had cholecystectomy, appendectomy, and several abdominal hernia repairs. Patient states the last time she vomited was about 2 PM. She does have Zofran at home and has been taking that today. Last time she ate was about one hour prior to arrival. Her neighbor brought her some chili and she thought she would try it, but it didn't taste good. She did not vomit it. PCP Dr. Alvarez Review of Systems Review of Systems Constitutional: She has felt hot HENT: Denies nasal congestion or sore throat [] Respiratory: Denies cough or shortness of breath [] Cardiovascular: Denies chest pain GI: As in history of present illness : Denies dysuria or hematuria [] Musculoskeletal: Denies back pain or joint pain [] Integument: Denies rash or skin lesions [] Neurologic: Denies headache, focal weakness or sensory changes [] Current Medications Current Medications Current Medications Medications (Trade) Dose Ordered Sig/Irish Start Time Stop Time Status Last Admin Dose Admin Morphine Sulfate 5 mg 1X ONCE 06/23/17 21:45 06/23/17 21:46 DC 06/23/17 21:40 5 MG Ondansetron HCl (Zofran) 4 mg 1X ONCE 06/23/17 20:15 06/23/17 20:16 DC 06/23/17 20:53 4 MG Sodium Chloride 1,000 ml @ 1,000 mls/hr Q1H 06/23/17 20:02 06/23/17 21:01 DC 06/23/17 20:02 1,000 MLS/HR Allergies Allergies Allergies Coded Allergies Type Severity Reaction Last Updated Verified Penicillins Allergy Intermediate itching, dry mouth, tongue swells 12/16/15 Yes Sulfa (Sulfonamide Antibiotics) Allergy Intermediate ITCHING DRY MOUTH, hives/ swelling 12/16/15 Yes fentanyl Allergy Intermediate 12/16/15 Yes hydromorphone HCl Allergy Intermediate MORPHINE OK 12/16/15 Yes methylprednisolone Allergy Intermediate RED MAN SYNDROME 10/11/16 Yes prednisone Allergy Intermediate RED MED SYNDROME 10/11/16 Yes gluten Allergy Mild bloating 04/18/17 Yes I S O L A T I O N *CONTACT* Allergy Unknown 02/04/17 Yes oxycodone HCl Adverse Reaction Intermediate "i FEEL LIKE I HAVE WORMS IN ME" Yes Physical Exam Physical Exam Constitutional: Well developed, well nourished, no acute distress, non-toxic appearance. Alert, mentating normally, warm and dry. No distress. HENT: Normocephalic, atraumatic, bilateral external ears normal, nose normal. [ ] Eyes: conjunctiva normal, no discharge. [] Neck: Normal range of motion, no stridor. [] Cardiovascular:Heart rate regular rhythm, no murmur [] Lungs & Thorax: Bilateral breath sounds clear to auscultation [] Abdomen: Bowel sounds normal, not obstructive sounding, nondistended, soft. Increase in tympany across the upper abdomen. Tenderness to palpation more in the right lower quadrant, somewhat in the left lower quadrant. No rebound or guarding. No masses. No abdominal hernia noted. Skin: Warm, dry, no erythema, no rash. [] Extremities: No tenderness, no cyanosis, no clubbing, ROM intact, no edema. [] Neurologic: Alert and oriented X 3, normal motor function, no focal deficits noted. [] Current Patient Data Vital Signs Vital Signs Date Time Temp Pulse Resp B/P (MAP) Pulse Ox O2 Delivery O2 Flow Rate FiO2 06/23/17 21:40 17 98 Room Air Lab Values Laboratory Tests Test 06/23/17 20:45 White Blood Count 8.7 x10^3/uL (4.0-11.0) Red Blood Count 4.87 x10^6/uL (3.50-5.40) Hemoglobin 14.0 g/dL (12.0-15.5) Hematocrit 41.6 % (36.0-47.0) Mean Corpuscular Volume 86 fL (79-100) Mean Corpuscular Hemoglobin 29 pg (25-35) Mean Corpuscular Hemoglobin Concent 34 g/dL (31-37) Red Cell Distribution Width 14.5 % (11.5-14.5) Platelet Count 257 x10^3/uL (140-400) Neutrophils (%) (Auto) 63 % (31-73) Lymphocytes (%) (Auto) 28 % (24-48) Monocytes (%) (Auto) 6 % (0-9) Eosinophils (%) (Auto) 3 % (0-3) Basophils (%) (Auto) 1 % (0-3) Neutrophils # (Auto) 5.5 x10^3uL (1.8-7.7) Lymphocytes # (Auto) 2.4 x10^3/uL (1.0-4.8) Monocytes # (Auto) 0.5 x10^3/uL (0.0-1.1) Eosinophils # (Auto) 0.2 x10^3/uL (0.0-0.7) Basophils # (Auto) 0.0 x10^3/uL (0.0-0.2) Sodium Level 135 mmol/L (136-145) L Potassium Level 3.2 mmol/L (3.5-5.1) L Chloride Level 97 mmol/L (98-107) L Carbon Dioxide Level 26 mmol/L (21-32) Anion Gap 12 (6-14) Blood Urea Nitrogen 13 mg/dL (7-20) Creatinine 0.8 mg/dL (0.6-1.0) Estimated GFR (Cockcroft-Gault) 71.8 BUN/Creatinine Ratio 16 (6-20) Glucose Level 196 mg/dL (70-99) H Calcium Level 8.8 mg/dL (8.5-10.1) Total Bilirubin 0.2 mg/dL (0.2-1.0) Aspartate Amino Transferase (AST) < 5 U/L (15-37) L Alanine Aminotransferase (ALT) 19 U/L (14-59) Alkaline Phosphatase 130 U/L (46-116) H Total Protein 7.0 g/dL (6.4-8.2) Albumin 3.0 g/dL (3.4-5.0) L Albumin/Globulin Ratio 0.8 (1.0-1.7) L Lipase 167 U/L (73-393) Laboratory Tests 06/23/17 20:45 Laboratory Tests 06/23/17 20:45 EKG EKG [] Radiology/Procedures Radiology/Procedures Flat and upright of the abdomen read by me. Nonobstructive bowel gas pattern. No dilated loops of bowel. Nonspecific without evidence of bowel obstruction.[] Course & Med Decision Making Course & Med Decision Making Pertinent Labs and Imaging studies reviewed. (See chart for details) 67-year-old female gives a history of a partial small bowel obstruction a couple of months ago, treated nonsurgically. She presents today with vomiting and diarrhea. Patient was in the emergency department more than 2 hours and did not have any vomiting while here. She was given some IV pain medication and IV fluids. She had no diarrhea in the emergency department. Labs, x-rays unremarkable for acute findings. Patient was reassured. I urged her to stick with clear liquids for the next couple of days. See instructions for plan. She does have Zofran at home. [] Dragon Disclaimer Dragon Disclaimer This electronic medical record was generated, in whole or in part, using a voice recognition dictation system. Departure Departure Impression: Primary Impression: Abdominal pain Additional Impression: Nausea vomiting and diarrhea Disposition: 01 HOME, SELF-CARE Condition: IMPROVED Referrals: Meagan ALVAREZ MD (PCP) Patient Instructions: Nausea and Vomiting, [id number] Additional Instructions: As discussed, stick with only clear liquids for the next day or 2. Problem Qualifiers JOSE LEWIS MD Jun 23, 2017 21:45
--- NOTE | 2017-06-24 07:56 | RAD ---
EXAM: Abdomen 2 views. HISTORY: Abdominal pain, vomiting. COMPARISON: 05/02/2017. FINDINGS: Supine and upright views of the abdomen are obtained. There is no pneumoperitoneum. There are no distended small bowel loops or significant air fluid levels. There is gas distally. Cholecystectomy clips are noted. Postsurgical changes project over both inguinal regions and the right lower quadrant. There are moderate degenerative changes within the lower lumbar spine. IMPRESSION: 1. No evidence of obstruction.
== END 2017-06-23 22:29 | disposition home or self-care (01) ==
LOC: ER 19:30
DX: R10.9 Unspecified abdominal pain (principal); R11.2 Nausea with vomiting, unspecified; R19.7 Diarrhea, unspecified; E10.9 Type 1 diabetes mellitus without complications; J44.9 Chronic obstructive pulmonary disease, unspecified; Z90.49 Acquired absence of other specified parts of digestive tract; Z90.710 Acquired absence of both cervix and uterus; G47.30 Sleep apnea, unspecified; Z98.890 Other specified postprocedural states; Z88.2 Allergy status to sulfonamides; Z88.0 Allergy status to penicillin
CPT/HCPCS: 36415; 74020; 80053; 83690; 85025; 96361; 96374; 96375; 96376; J2270; J2405; J7030; 99285-25

== ENCOUNTER 2017-07-03 18:52 | Emergency (ER) | payer BC, OTHER ==
[2017-07-03 19:24] VITALS: BP 149/92
[2017-07-03 19:29] LABS: BILIRUBIN,URINE NEGATIVE (NEG); GLUCOSE,URINE 250 mg/dL (NEG); NITRITE,URINE NEGATIVE (NEG); PH,URINE 6.5; PROTEIN,URINE NEGATIVE (NEG-TRACE); UROBILINOGEN,URINE 0.2 mg/dL (0.2 mg/dL)
--- NOTE | 2017-07-03 19:29 | PHYS DOC ---
Past Medical History Past Medical History: No Pertinent History Additional Past Medical Histor: appy, rubén, hysterectomy Past Surgical History: Cholecystectomy, Hysterectomy, Other Additional Past Surgical Histo: bilateral cataract, bilater shoulder, hernia x7 Alcohol Use: None Drug Use: None Adult General Chief Complaint Chief Complaint: ABDOMINAL PAIN HPI HPI Patient is a 67 year old female who presents with chronic recurrent lower abdominal pain started today with mild nausea no vomiting or diarrhea no dysuria or frequency. Patient has had many prior ER visits and workups and was admitted in April for small bowel obstruction that was managed conservatively. Past surgical history includes cholecystectomy appendectomy hysterectomy multiple hernia repairs and a bowel resection. She has seen Dr. An as her general surgeon and Dr. Alvarez primary care physician. Review of Systems Review of Systems Constitutional: Denies fever or chills [] Eyes: Denies change in visual acuity, redness, or eye pain [] HENT: Denies nasal congestion or sore throat [] Respiratory: Denies cough or shortness of breath [] Cardiovascular: No additional information not addressed in HPI [] GI: Denies abdominal pain, nausea, vomiting, bloody stools or diarrhea [] : Denies dysuria or hematuria [] Musculoskeletal: Denies back pain or joint pain [] Integument: Denies rash or skin lesions [] Neurologic: Denies headache, focal weakness or sensory changes [] Endocrine: Denies polyuria or polydipsia [] All other systems were reviewed and found to be within normal limits, except as documented in this note. Current Medications Current Medications Current Medications Medications (Trade) Dose Ordered Sig/Irish Start Time Stop Time Status Last Admin Dose Admin Acetaminophen/ Hydrocodone Bitart (Lortab 5/325) 1 tab 1X ONCE 07/03/17 21:00 07/03/17 21:01 Info (Do NOT chart on this entry -- for MONITORING) 1 each PRN DAILY PRN 07/03/17 20:15 07/05/17 20:14 Iohexol (Omnipaque 300 Mg/ml) 75 ml 1X ONCE 07/03/17 20:15 07/03/17 20:16 DC 07/03/17 20:30 75 ML Morphine Sulfate 4 mg 1X ONCE 07/03/17 20:15 07/03/17 20:16 DC 07/03/17 20:17 4 MG Ondansetron HCl (Zofran) 4 mg 1X ONCE 07/03/17 20:15 07/03/17 20:16 DC 07/03/17 20:16 4 MG Sodium Chloride 500 ml @ 500 mls/hr 1X ONCE 07/03/17 20:15 07/03/17 21:14 07/03/17 20:17 500 MLS/HR Allergies Allergies Allergies Coded Allergies Type Severity Reaction Last Updated Verified Penicillins Allergy Intermediate itching, dry mouth, tongue swells 12/16/15 Yes Sulfa (Sulfonamide Antibiotics) Allergy Intermediate ITCHING DRY MOUTH, hives/ swelling 12/16/15 Yes fentanyl Allergy Intermediate 12/16/15 Yes hydromorphone HCl Allergy Intermediate MORPHINE OK 12/16/15 Yes methylprednisolone Allergy Intermediate RED MAN SYNDROME 10/11/16 Yes prednisone Allergy Intermediate RED MED SYNDROME 10/11/16 Yes gluten Allergy Mild bloating 04/18/17 Yes I S O L A T I O N *CONTACT* Allergy Unknown 02/04/17 Yes oxycodone HCl Adverse Reaction Intermediate "i FEEL LIKE I HAVE WORMS IN ME" Yes Physical Exam Physical Exam Constitutional: Well developed, well nourished, no acute distress, non-toxic appearance. [] HENT: Normocephalic, atraumatic, bilateral external ears normal, oropharynx moist, no oral exudates, nose normal. [] Eyes: PERRLA, EOMI, conjunctiva normal, no discharge. [] Neck: Normal range of motion, no tenderness, supple, no stridor. [] Cardiovascular:Heart rate regular rhythm, no murmur [] Lungs & Thorax: Bilateral breath sounds clear to auscultation [] Abdomen: Bowel sounds normal, soft, no tenderness, no masses, no pulsatile masses. [] Skin: Warm, dry, no erythema, no rash. [] Back: No tenderness, no CVA tenderness. [] Extremities: No tenderness, no cyanosis, no clubbing, ROM intact, no edema. [] Neurologic: Alert and oriented X 3, normal motor function, normal sensory function, no focal deficits noted. [] Psychologic: Affect normal, judgement normal, mood normal. [] Current Patient Data Vital Signs Vital Signs Date Time Temp Pulse Resp B/P (MAP) Pulse Ox O2 Delivery O2 Flow Rate FiO2 07/03/17 20:17 20 95 Room Air 07/03/17 19:24 98.5 86 149/92 (111) 98.5 Lab Values Laboratory Tests Test 07/03/17 19:15 07/03/17 19:50 07/03/17 19:59 Urine Collection Type Unknown Urine Color Yellow Urine Clarity Clear Urine pH 6.5 Urine Specific [place] 1.010 Urine Protein Negative mg/dL (NEG-TRACE) Urine Glucose (UA) 250 mg/dL (NEG) Urine Ketones (Stick) Negative mg/dL (NEG) Urine Blood Negative (NEG) Urine Nitrite Negative (NEG) Urine Bilirubin Negative (NEG) Urine Urobilinogen Dipstick 0.2 mg/dL (0.2 mg/dL) Urine Leukocyte Esterase Negative (NEG) Urine RBC 0 /HPF (0-2) Urine WBC Occ /HPF (0-4) Urine Squamous Epithelial Cells Mod /LPF Urine Bacteria Moderate /HPF (0-FEW) White Blood Count 8.4 x10^3/uL (4.0-11.0) Red Blood Count 4.69 x10^6/uL (3.50-5.40) Hemoglobin 13.6 g/dL (12.0-15.5) Hematocrit 40.7 % (36.0-47.0) Mean Corpuscular Volume 87 fL (79-100) Mean Corpuscular Hemoglobin 29 pg (25-35) Mean Corpuscular Hemoglobin Concent 34 g/dL (31-37) Red Cell Distribution Width 14.8 % (11.5-14.5) H Platelet Count 329 x10^3/uL (140-400) Neutrophils (%) (Auto) 55 % (31-73) Lymphocytes (%) (Auto) 36 % (24-48) Monocytes (%) (Auto) 7 % (0-9) Eosinophils (%) (Auto) 2 % (0-3) Basophils (%) (Auto) 1 % (0-3) Neutrophils # (Auto) 4.6 x10^3uL (1.8-7.7) Lymphocytes # (Auto) 3.0 x10^3/uL (1.0-4.8) Monocytes # (Auto) 0.5 x10^3/uL (0.0-1.1) Eosinophils # (Auto) 0.2 x10^3/uL (0.0-0.7) Basophils # (Auto) 0.1 x10^3/uL (0.0-0.2) Prothrombin Time 24.2 SEC (11.7-14.0) H Prothrombin Time INR 2.3 (0.8-1.1) H Sodium Level 134 mmol/L (136-145) L Potassium Level 3.9 mmol/L (3.5-5.1) Chloride Level 98 mmol/L (98-107) Carbon Dioxide Level 27 mmol/L (21-32) Anion Gap 9 (6-14) 17 mmol/L (6-14) H Blood Urea Nitrogen 16 mg/dL (7-20) Creatinine 1.1 mg/dL (0.6-1.0) H Estimated GFR (Cockcroft-Gault) 49.7 BUN/Creatinine Ratio 15 (6-20) Glucose Level 196 mg/dL (70-99) H 195 mg/dL (70-99) H Calcium Level 9.1 mg/dL (8.5-10.1) Total Bilirubin 0.2 mg/dL (0.2-1.0) Aspartate Amino Transferase (AST) 23 U/L (15-37) Alanine Aminotransferase (ALT) 21 U/L (14-59) Alkaline Phosphatase 137 U/L (46-116) H Total Protein 6.8 g/dL (6.4-8.2) Albumin 3.0 g/dL (3.4-5.0) L Albumin/Globulin Ratio 0.8 (1.0-1.7) L Lipase 150 U/L (73-393) POC Hemoglobin 13.9 g/dL (12-15) POC Hematocrit 41 % (36-40) H POC Sodium 134 mmol/L (135-145) L POC Potassium 4.0 mmol/L (3.5-5.0) POC Chloride 96 mmol/L (98-110) L POC Total CO2 26 mmol/L (23-32) POC Blood Urea Nitrogen 16 mg/dL (8-26) POC Creatinine 0.9 mg/dL (0.5-1.4) POC Ionized Calcium ([place]) 1.18 mmol/L (1.13-1.32) Laboratory Tests 07/03/17 19:50 Laboratory Tests 07/03/17 19:50 07/03/17 19:59 EKG EKG [] Radiology/Procedures Radiology/Procedures CT scan abdomen and pelvis[] negative per radiology report Course & Med Decision Making Course & Med Decision Making Pertinent Labs and Imaging studies reviewed. (See chart for details) [Due to multiple prior surgeries we'll obtain abdominal labs, CT scan of abdomen and pelvis and treat symptoms. Labs unremarkable urine had some bacteria but a lot of epithelials. 8:45 PM reexamination patient has some improvement of her symptoms but not complete resolution which is not likely to happen. I've counseled her that if the CT scan is negative for acute surgical issues she'll be dismissed she can follow up with her PCP or Dr. An in the next couple days and I'll write her a small prescription for nausea meds and hydrocodone.] Dragon Disclaimer Dragon Disclaimer This electronic medical record was generated, in whole or in part, using a voice recognition dictation system. Departure Departure Impression: Primary Impression: Acute bilateral lower abdominal pain Disposition: HOME, SELF-CARE Condition: IMPROVED Referrals: Meagan ALVAREZ MD (PCP) Scripts Hydrocodone Bit/Acetaminophen (HYDROCODONE-APAP 5-325 ) 1 Each Tablet 1 TAB PO PRN Q6HRS Y for PAIN, #8 TAB 0 Refills Prov: SANDRA PEREYRA MD 07/03/17 Ondansetron (ZOFRAN ODT) 4 Mg Tab.rapdis 4 MG PO TID Y for NAUSEA/VOMITING, #10 TAB Prov: SANDRA PEREYRA MD 07/03/17 SANDRA PEREYRA MD Jul 03, 2017 19:29
[2017-07-03 19:35] LABS: BACTERIA,URINE MODERATE /HPF (0-FEW); RBC,URINE 0 /HPF (0-2); SQUAMOUS EPITHELIAL CELL,UR MOD /LPF; WBC,URINE OCC /HPF (0-4)
[2017-07-03 20:02] LABS: BASO # 0.1 x10^3/uL (0.0-0.2); BASO % 1 % (0-3); EOS % 2 % (0-3); HEMATOCRIT 40.7 % (36.0-47.0); HEMOGLOBIN 13.6 g/dL (12.0-15.5); LYMPH % 36 % (24-48); MEAN CORPUSCULAR HEMOGLOBIN 29 pg (25-35); MEAN CORPUSCULAR HGB CONC 34 g/dL (31-37); MEAN CORPUSCULAR VOLUME 87 fL (79-100); MONO % 7 % (0-9); NEUT % 55 % (31-73); PLATELET COUNT 329 x10^3/uL (140-400); RED BLOOD COUNT 4.69 x10^6/uL (3.50-5.40); RED CELL DISTRIBUTION WIDTH 14.8 % (11.5-14.5); WHITE BLOOD COUNT 8.4 x10^3/uL (4.0-11.0)
[2017-07-03 20:12] LABS: CALCIUM 9.1 mg/dL (8.5-10.1); CREATININE 1.1 mg/dL (0.6-1.0); GFR 49.7; POTASSIUM 3.9 mmol/L (3.5-5.1)
[2017-07-03] MEDS ORDERED: IV NORMAL SALINE 500ML BAG 500 ML IV ONE (20:15)
[2017-07-03] MEDS ORDERED: ONDANSETRON PF 4 MG/2 ML VIAL. IV ONE (20:15)
[2017-07-03] MEDS ORDERED: CONTRAST GIVEN MC PRN (20:15)
[2017-07-03] MEDS ORDERED: MORPHINE SULFATE 4 MG/ML DISP.SYRIN. IV ONE (20:15)
[2017-07-03] MEDS ORDERED: IOHEXOL 300 MG/ML 100ML VIAL. IV ONE (20:15)
[2017-07-03 20:17] LABS: ALBUMIN/GLOBULIN RATIO 0.8 (1.0-1.7); TOTAL BILIRUBIN 0.2 mg/dL (0.2-1.0); TOTAL PROTEIN 6.8 g/dL (6.4-8.2)
[2017-07-03 20:21] LABS: INR 2.3 (0.8-1.1); PROTHROMBIN TIME PATIENT 24.2 SEC (11.7-14.0)
[2017-07-03] MEDS ORDERED: HYDR-2758 PO (20:46)
[2017-07-03] MEDS ORDERED: ONDA4TAB10 PO (20:46)
--- NOTE | 2017-07-03 20:51 | RAD ---
CT ABD PELV W/ IV CONTRST ONLY dated 07/03/2017 7:19 PM Indication: Pain, right lower quadrant painsevere RLQ pain x 2 days, [id number] 75ml, prior sent. Comparison: 04/26/2017 Technique: Contiguous axial imaging of the abdomen and pelvis performed after the administration of 75 cc Omnipaque 300 One or more of the following individualized dose reduction techniques were utilized for this examination: 1. Automated exposure control 2. Adjustment of the mA and/or kV according to patient size 3. Use of iterative reconstruction technique Findings: Limited images of lung bases are clear. Heart size within normal limits. No pleural or pericardial effusion. Liver, spleen, pancreas, adrenal glands, kidneys are unremarkable. No hydronephrosis. The gallbladder is surgically absent. Unopacified GI tract is normal in caliber and contour. No focal bowel wall thickening. The appendix is not clearly identified. No inflammatory changes in the right lower quadrant. Evidence of prior ventral hernia repair. There is no ascites or lymphadenopathy. Images of pelvis show nondistended urinary bladder. Uterus is surgically absent. No free pelvic fluid or pelvic lymphadenopathy. Small bilateral inguinal hernias containing only fat, unchanged. Bone windows show no acute findings. Multilevel spondylosis. IMPRESSION: 1. No acute abnormality of abdomen or pelvis.. The appendix is not clearly identified. No inflammatory changes in the right lower quadrant. 2. Status post ventral hernia repair. There are small bilateral fat-containing inguinal hernias, unchanged. 3. Status post cholecystectomy and hysterectomy. Electronically signed by: Maik Ferrera MD (07/03/2017 8:48 PM) [facility]
[2017-07-03] MEDS ORDERED: HYDROcodone/APAP 5/325MG 1 TAB TABLET PO ONE (21:00)
== END 2017-07-03 21:08 | disposition home or self-care (01) ==
LOC: ER 18:52
DX: R10.30 Lower abdominal pain, unspecified (principal); R11.0 Nausea; Z90.710 Acquired absence of both cervix and uterus; Z90.49 Acquired absence of other specified parts of digestive tract; Z98.890 Other specified postprocedural states; Z88.0 Allergy status to penicillin; Z88.2 Allergy status to sulfonamides; Z88.4 Allergy status to anesthetic agent; Z88.5 Allergy status to narcotic agent; Z88.8 Allergy status to other drugs, medicaments and biological substances; Z91.041 Radiographic dye allergy status
CPT/HCPCS: 36415; 74177; 80047; 80053; 81001; 83690; 85025; 85610; 87086; 96361; 96374; 96375; 99285; J2270; J2405; J7040; Q9967

== ENCOUNTER 2017-08-19 14:53 | Emergency (ER) | payer BC, OTHER ==
[2017-08-19] MEDS: IPRATRPIUM/ALBUTEROL 0.5/2.5MG 3 ML NEBU. NEB (15:50)
[2017-08-19 16:03] LABS: INFLUENZA A PATIENT NEGATIVE (NEGATIVE); INFLUENZA B PATIENT NEGATIVE (NEGATIVE); OBC FLU VALID
== END 2017-08-19 16:35 | disposition home or self-care (01) ==
LOC: ER 14:53
DX: J06.9 Acute upper respiratory infection, unspecified (principal); J44.9 Chronic obstructive pulmonary disease, unspecified; I10 Essential (primary) hypertension; E11.9 Type 2 diabetes mellitus without complications; Z88.0 Allergy status to penicillin; Z88.2 Allergy status to sulfonamides; Z88.4 Allergy status to anesthetic agent; Z88.5 Allergy status to narcotic agent; Z88.8 Allergy status to other drugs, medicaments and biological substances; Z91.041 Radiographic dye allergy status
CPT/HCPCS: 71046; 87804; 87804-59; 94640; 99285-25; J7620

== ENCOUNTER 2017-08-20 20:21 | Inpatient (IN) | payer BC, OTHER ==
[2017-08-20] MEDS: ALBUTEROL SULFATE 2.5 MG/3 ML NEBU. INH (21:00)
[2017-08-20 21:09] LABS: ADD MAN DIFF? NO
[2017-08-20 21:11] LABS: BASO # 0.1 x10^3/uL (0.0-0.2); BASO % 1 % (0-3); EOS # 0.1 x10^3/uL (0.0-0.7); EOS % 1 % (0-3); HEMATOCRIT 40.1 % (36.0-47.0); HEMOGLOBIN 13.2 g/dL (12.0-15.5); LYMPH # 2.4 x10^3/uL (1.0-4.8); LYMPH % 25 % (24-48); MEAN CORPUSCULAR HEMOGLOBIN 28 pg (25-35); MEAN CORPUSCULAR HGB CONC 33 g/dL (31-37); MEAN CORPUSCULAR VOLUME 85 fL (79-100); MONO # 0.7 x10^3/uL (0.0-1.1); MONO % 7 % (0-9); NEUT # 6.5 x10^3uL (1.8-7.7); NEUT % 66 % (31-73); PLATELET COUNT 273 x10^3/uL (140-400); RED CELL DISTRIBUTION WIDTH 14.7 % (11.5-14.5); WHITE BLOOD COUNT 9.9 x10^3/uL (4.0-11.0)
[2017-08-20 21:25] LABS: ANION GAP 12 (6-14); BLOOD UREA NITROGEN 15 mg/dL (7-20); BUN/CREATININE RATIO 19 (6-20); CARBON DIOXIDE 28 mmol/L (21-32); CHLORIDE 93 mmol/L (98-107); CREATININE 0.8 mg/dL (0.6-1.0); GFR 71.8; GLUCOSE 430 mg/dL (70-99); POTASSIUM 3.8 mmol/L (3.5-5.1); SODIUM 133 mmol/L (136-145)
[2017-08-20 21:30] LABS: ALBUMIN 3.1 g/dL (3.4-5.0); ALBUMIN/GLOBULIN RATIO 0.8 (1.0-1.7); ALK PHOS 150 U/L (46-116); ALT (SGPT) 22 U/L (14-59); AST (SGOT) 24 U/L (15-37); TOTAL BILIRUBIN 0.3 mg/dL (0.2-1.0)
[2017-08-20] MEDS: methylPREDNISolone SOD SUCC PF 125 MG/2 ML VIAL. IV (21:30)
[2017-08-20] MEDS: diphenhydrAMINE 50 MG/ML VIAL IVP (21:31)
[2017-08-20 21:34] LABS: TROPONINI < 0.017 ng/mL (0.000-0.055)
[2017-08-20 21:36] LABS: NT-PRO BNP 123 pg/mL (0-124)
[2017-08-20] MEDS: IPRATRPIUM/ALBUTEROL 0.5/2.5MG 3 ML NEBU. NEB (21:43)
[2017-08-20] MEDS: INSULIN REGULAR 100 UNIT/ML 10ML VIAL. SQ (22:51)
[2017-08-20] MEDS: IV NORMAL SALINE 1000ML BAG 1,000 ML IV (22:52)
[2017-08-20] MEDS ORDERED: levOFLOXacin PER PHARMACY. MC (23:00)
[2017-08-21] MEDS ORDERED: DEXTROSE 50% 25 GM / 50ML DISP.SYRIN. IV (00:45)
[2017-08-21] MEDS: ACETAMINOPHEN 325 MG TABLET. PO (02:53)
[2017-08-21 05:36] LABS: ADD MAN DIFF? NO
[2017-08-21 05:50] LABS: BASO % 0 % (0-3); EOS % 0 % (0-3); HEMATOCRIT 40.2 % (36.0-47.0); LYMPH # 1.2 x10^3/uL (1.0-4.8); LYMPH % 15 % (24-48); MEAN CORPUSCULAR HEMOGLOBIN 28 pg (25-35); MEAN CORPUSCULAR HGB CONC 32 g/dL (31-37); MEAN CORPUSCULAR VOLUME 86 fL (79-100); MONO # 0.1 x10^3/uL (0.0-1.1); MONO % 1 % (0-9); NEUT # 6.7 x10^3uL (1.8-7.7); NEUT % 83 % (31-73); PLATELET COUNT 252 x10^3/uL (140-400); RED BLOOD COUNT 4.67 x10^6/uL (3.50-5.40); RED CELL DISTRIBUTION WIDTH 14.8 % (11.5-14.5)
[2017-08-21 06:18] LABS: ANION GAP 12 (6-14); BLOOD UREA NITROGEN 16 mg/dL (7-20); CALCIUM 9.2 mg/dL (8.5-10.1); CARBON DIOXIDE 27 mmol/L (21-32); CHLORIDE 96 mmol/L (98-107); CREATININE 0.9 mg/dL (0.6-1.0); GFR 62.6; GLUCOSE 471 mg/dL (70-99); POTASSIUM 4.6 mmol/L (3.5-5.1); SODIUM 135 mmol/L (136-145)
[2017-08-21] MEDS: IV NORMAL SALINE 1000ML BAG 1,000 ML IV (06:38)
[2017-08-21] MEDS: IPRATRPIUM/ALBUTEROL 0.5/2.5MG 3 ML NEBU. NEB ×5 (07:13→20:45)
[2017-08-21 08:00] LABS: POC GLUCOSE 422 mg/dL (70-99)
[2017-08-21] MEDS: ONDANSETRON PF 4 MG/2 ML VIAL. IV (08:54)
[2017-08-21] MEDS ORDERED: ACETAMINOPHEN 325 MG TABLET. PO ×2 (09:00→09:15)
[2017-08-21] MEDS ORDERED: NON FORMULARY ITEM (Fluticasone/Salmeterol (Advair 250-50 Diskus) 1 EACH) IH (09:00)
[2017-08-21] MEDS ORDERED: ALBUTEROL SULFATE 2.5 MG/3 ML NEBU. NEB (09:00)
[2017-08-21] MEDS ORDERED: traMADol 50 MG TABLET PO ×2 (09:00→09:15)
[2017-08-21] MEDS ORDERED: ONDANSETRON ODT 4 MG TAB.RAPDIS. PO (09:00)
[2017-08-21] MEDS ORDERED: NON FORMULARY ITEM (Tramadol Hcl/Acetaminophen (Tramadol-Acetaminophn 37.5-325) 1 TAB) PO (09:00)
[2017-08-21] MEDS ORDERED: LEVALBUTEROL TARTRATE IH (09:00)
[2017-08-21] MEDS ORDERED: NON FORMULARY ITEM (Tiotropium Bromide (Spiriva) 18 MCG) IH (09:00)
[2017-08-21] MEDS: INSULIN ASPART 300 UNITS/3 ML INSULN.PEN SQ ×8 (09:03→18:07)
[2017-08-21 09:32] LABS: INR 2.8 (0.8-1.1); PROTHROMBIN TIME PATIENT 27.8 SEC (11.7-14.0)
[2017-08-21] MEDS: DULoxetine HCL 30 MG CAPSULE.DR PO (09:42)
[2017-08-21] MEDS: METOPROLOL SUCC 24HR ER 25 MG TAB.ER.24H. PO (09:42)
[2017-08-21] MEDS: diphenhydrAMINE HCL 25 MG CAPSULE PO ×3 (09:42→22:49)
[2017-08-21] MEDS: INSULIN DETEMIR 300 UNITS/3 ML INSULN.PEN. SQ ×2 (09:49→20:41)
[2017-08-21] MEDS: methylPREDNISolone SOD SUCC PF 125 MG/2 ML VIAL. IV ×3 (10:53→23:27)
[2017-08-21] MEDS: BUDESONIDE 0.5 MG/2 ML NEBU. NEB ×2 (10:55→22:37)
[2017-08-21 11:38] LABS: POC GLUCOSE 449 mg/dL (70-99)
[2017-08-21] MEDS ORDERED: NON FORMULARY ITEM ([Ipratropium/Albuterol Sulfate] (Duoneb) 3 ML) NEB (12:00)
[2017-08-21] MEDS: HYDROcodone/APAP 5/325MG 1 TAB TABLET PO ×2 (13:27→20:35)
[2017-08-21] MEDS: WARFARIN 10 MG TABLET. PO (15:31)
[2017-08-21 16:37] LABS: POC GLUCOSE 409 mg/dL (70-99)
[2017-08-21] MEDS ORDERED: BENZONATATE 100 MG CAPSULE. PO (17:00)
[2017-08-21 20:09] LABS: MRSA BY PCR Positive (Negative)
[2017-08-21] MEDS: SIMVASTATIN 10 MG TABLET PO (20:34)
[2017-08-21] MEDS: MONTELUKAST SODIUM 10 MG TABLET. PO (20:34)
[2017-08-21] MEDS: EZETIMIBE 10 MG TABLET. PO (20:34)
[2017-08-21] MEDS ORDERED: EZETIMIBE PO (21:00)
[2017-08-21] MEDS ORDERED: SIMVASTATIN PO (21:00)
[2017-08-21 21:11] LABS: POC GLUCOSE 380 mg/dL (70-99)
[2017-08-22] MEDS: HYDROcodone/APAP 5/325MG 1 TAB TABLET PO (02:52)
[2017-08-22 03:54] LABS: INR 3.2 (0.8-1.1); PROTHROMBIN TIME PATIENT 30.7 SEC (11.7-14.0)
[2017-08-22] MEDS: methylPREDNISolone SOD SUCC PF 125 MG/2 ML VIAL. IV ×2 (06:32→14:00)
[2017-08-22] MEDS: diphenhydrAMINE HCL 25 MG CAPSULE PO ×2 (06:32→12:50)
[2017-08-22] MEDS: IPRATRPIUM/ALBUTEROL 0.5/2.5MG 3 ML NEBU. NEB ×2 (07:10→11:23)
[2017-08-22] MEDS: BUDESONIDE 0.5 MG/2 ML NEBU. NEB (07:10)
[2017-08-22 08:34] LABS: POC GLUCOSE 421 mg/dL (70-99)
[2017-08-22] MEDS: METOPROLOL SUCC 24HR ER 25 MG TAB.ER.24H. PO (08:41)
[2017-08-22] MEDS: DULoxetine HCL 30 MG CAPSULE.DR PO (08:42)
[2017-08-22] MEDS: INSULIN DETEMIR 300 UNITS/3 ML INSULN.PEN. SQ (08:49)
[2017-08-22] MEDS: INSULIN ASPART 300 UNITS/3 ML INSULN.PEN SQ ×6 (08:50→17:28)
[2017-08-22 11:28] LABS: POC GLUCOSE 426 mg/dL (70-99)
[2017-08-22] MEDS: BENZONATATE 100 MG CAPSULE. PO (12:51)
[2017-08-22] MEDS: WARFARIN 10 MG TABLET. PO (16:00)
[2017-08-22 17:14] LABS: POC GLUCOSE 353 mg/dL (70-99)
== END 2017-08-22 20:45 | disposition home or self-care (01) | DRG 193 ==
LOC: ED HOLD 22:50 → ER 20:21 → 6 SOUTH 08-21 01:12
DX: J18.9 Pneumonia, unspecified organism (principal); J96.00 Acute respiratory failure, unspecified whether with hypoxia or hypercapnia; J44.0 Chronic obstructive pulmonary disease with (acute) lower respiratory infection; J45.901 Unspecified asthma with (acute) exacerbation; E11.65 Type 2 diabetes mellitus with hyperglycemia; E78.5 Hyperlipidemia, unspecified; G47.30 Sleep apnea, unspecified; Z79.01 Long term (current) use of anticoagulants; Z79.4 Long term (current) use of insulin; Z86.711 Personal history of pulmonary embolism; Z86.718 Personal history of other venous thrombosis and embolism; Z90.710 Acquired absence of both cervix and uterus; I10 Essential (primary) hypertension; G89.29 Other chronic pain
CPT/HCPCS: 36415; 71046; 80048; 80053; 82962; 83880; 84484; 85025; 85610; 87641; 87804; 87804-59; 93005; 94640; 94760; 96361; 96365; 96372; 96375; 99285; 99285-25; J1200; J1815; J1956; J2405; J2930; J7030; J7613; J7620; J7626; Q0163

== ENCOUNTER 2017-10-29 21:59 | Emergency (ER) | payer BC, OTHER ==
[2017-10-29] MEDS: IBUPROFEN 400 MG TABLET. PO (23:53)
[2017-10-29] MEDS: ACETAMINOPHEN/CODEINE 300/30MG TABLET. PO (23:53)
[2017-10-30] MEDS: KETOROLAC 30 MG/ML INJ. IM (00:34)
== END 2017-10-30 01:24 | disposition home or self-care (01) ==
LOC: ER 10-30 01:24
DX: S30.0XXA Contusion of lower back and pelvis, initial encounter (principal); E11.9 Type 2 diabetes mellitus without complications; I10 Essential (primary) hypertension; J44.9 Chronic obstructive pulmonary disease, unspecified; Z88.0 Allergy status to penicillin; Z88.2 Allergy status to sulfonamides; Z88.4 Allergy status to anesthetic agent; Z88.5 Allergy status to narcotic agent; Z91.041 Radiographic dye allergy status; Z90.710 Acquired absence of both cervix and uterus; Z90.49 Acquired absence of other specified parts of digestive tract; W18.39XA Other fall on same level, initial encounter; Y93.89 Activity, other specified; Y99.8 Other external cause status; Y92.89 Other specified places as the place of occurrence of the external cause
CPT/HCPCS: 72100; 72220; 96372; 99284-25; J1885

== ENCOUNTER 2017-12-29 00:32 | Emergency (ER) | payer BC, OTHER ==
[2017-12-29 01:33] LABS: ADD MAN DIFF? NO
[2017-12-29 01:41] LABS: BASO # 0.1 x10^3/uL (0.0-0.2); BASO % 1 % (0-3); EOS # 0.2 x10^3/uL (0.0-0.7); EOS % 2 % (0-3); HEMATOCRIT 42.5 % (36.0-47.0); HEMOGLOBIN 14.7 g/dL (12.0-15.5); LYMPH # 3.7 x10^3/uL (1.0-4.8); LYMPH % 40 % (24-48); MEAN CORPUSCULAR HEMOGLOBIN 30 pg (25-35); MEAN CORPUSCULAR HGB CONC 35 g/dL (31-37); MEAN CORPUSCULAR VOLUME 86 fL (79-100); MONO # 0.6 x10^3/uL (0.0-1.1); MONO % 7 % (0-9); NEUT # 4.7 x10^3uL (1.8-7.7); NEUT % 51 % (31-73); PLATELET COUNT 231 x10^3/uL (140-400); RED BLOOD COUNT 4.95 x10^6/uL (3.50-5.40); RED CELL DISTRIBUTION WIDTH 14.7 % (11.5-14.5); WHITE BLOOD COUNT 9.2 x10^3/uL (4.0-11.0)
[2017-12-29 01:54] LABS: ANION GAP 10 (6-14); BLOOD UREA NITROGEN 17 mg/dL (7-20); BUN/CREATININE RATIO 17 (6-20); CARBON DIOXIDE 27 mmol/L (21-32); CHLORIDE 93 mmol/L (98-107); GFR 55.5; GLUCOSE 326 mg/dL (70-99); POTASSIUM 4.9 mmol/L (3.5-5.1); SODIUM 130 mmol/L (136-145)
[2017-12-29 01:59] LABS: ALBUMIN 3.2 g/dL (3.4-5.0); ALBUMIN/GLOBULIN RATIO 0.7 (1.0-1.7); ALK PHOS 191 U/L (46-116); ALT (SGPT) 28 U/L (14-59); LIPASE 361 U/L (73-393); TOTAL BILIRUBIN 0.4 mg/dL (0.2-1.0); TOTAL PROTEIN 7.5 g/dL (6.4-8.2)
[2017-12-29] MEDS ORDERED: CONTRAST GIVEN MC (02:15)
[2017-12-29] MEDS ORDERED: IOHEXOL 300 MG/ML 100ML VIAL. IV (02:30)
[2017-12-29 03:00] LABS: AST (SGOT) 31 U/L (15-37)
[2017-12-29] MEDS: ONDANSETRON PF 4 MG/2 ML VIAL. IV (03:36)
[2017-12-29] MEDS: MORPHINE SULFATE 4 MG/ML DISP.SYRIN. IV ×2 (03:36→04:37)
[2017-12-29 04:23] LABS: BILIRUBIN,URINE NEGATIVE (NEG); CLARITY,URINE CLEAR; COLOR,URINE YELLOW; GLUCOSE,URINE 500 mg/dL (NEG); NITRITE,URINE NEGATIVE (NEG); PROTEIN,URINE NEGATIVE (NEG-TRACE); UROBILINOGEN,URINE 0.2 mg/dL (0.2 mg/dL)
[2017-12-29 04:58] LABS: BACTERIA,URINE MODERATE /HPF (0-FEW); RBC,URINE OCC /HPF (0-2); SQUAMOUS EPITHELIAL CELL,UR FEW /LPF; WBC,URINE OCC /HPF (0-4)
== END 2017-12-29 05:06 | disposition home or self-care (01) ==
LOC: ER 00:32
DX: R10.31 Right lower quadrant pain (principal); R11.2 Nausea with vomiting, unspecified; I10 Essential (primary) hypertension; E11.9 Type 2 diabetes mellitus without complications; J44.9 Chronic obstructive pulmonary disease, unspecified; Z90.710 Acquired absence of both cervix and uterus; Z90.49 Acquired absence of other specified parts of digestive tract; Z88.0 Allergy status to penicillin; Z88.2 Allergy status to sulfonamides; Z88.4 Allergy status to anesthetic agent; Z88.5 Allergy status to narcotic agent; Z88.8 Allergy status to other drugs, medicaments and biological substances; Z91.041 Radiographic dye allergy status
CPT/HCPCS: 36415; 74176; 80053; 81001; 83690; 85025; 87086; 96374; 96375; 96376; 99285-25; J2270; J2405

== ENCOUNTER 2018-01-28 20:58 | Emergency (ER) | payer BC, OTHER ==
[2018-01-28 21:32] LABS: ADD MAN DIFF? NO
[2018-01-28 21:33] LABS: BASO # 0.1 x10^3/uL (0.0-0.2); BASO % 1 % (0-3); EOS # 0.2 x10^3/uL (0.0-0.7); EOS % 2 % (0-3); HEMATOCRIT 43.1 % (36.0-47.0); HEMOGLOBIN 14.6 g/dL (12.0-15.5); LYMPH # 3.2 x10^3/uL (1.0-4.8); LYMPH % 34 % (24-48); MEAN CORPUSCULAR HEMOGLOBIN 29 pg (25-35); MEAN CORPUSCULAR HGB CONC 34 g/dL (31-37); MEAN CORPUSCULAR VOLUME 85 fL (79-100); MONO # 0.5 x10^3/uL (0.0-1.1); MONO % 6 % (0-9); NEUT # 5.5 x10^3uL (1.8-7.7); NEUT % 58 % (31-73); PLATELET COUNT 331 x10^3/uL (140-400); RED BLOOD COUNT 5.05 x10^6/uL (3.50-5.40); RED CELL DISTRIBUTION WIDTH 14.7 % (11.5-14.5); WHITE BLOOD COUNT 9.6 x10^3/uL (4.0-11.0)
[2018-01-28] MEDS: IV NORMAL SALINE 1000ML BAG 1,000 ML IV (21:35)
[2018-01-28] MEDS: MORPHINE SULFATE 4 MG/ML DISP.SYRIN. IV/SQ ×2 (21:36→22:33)
[2018-01-28] MEDS: ONDANSETRON PF 4 MG/2 ML VIAL. IV (21:36)
[2018-01-28 21:46] LABS: ANION GAP 12 (6-14); BLOOD UREA NITROGEN 18 mg/dL (7-20); BUN/CREATININE RATIO 18 (6-20); CALCIUM 9.5 mg/dL (8.5-10.1); CARBON DIOXIDE 28 mmol/L (21-32); CHLORIDE 95 mmol/L (98-107); GFR 55.5; GLUCOSE 319 mg/dL (70-99); POTASSIUM 3.6 mmol/L (3.5-5.1); SODIUM 135 mmol/L (136-145)
[2018-01-28 21:53] LABS: ALBUMIN 3.4 g/dL (3.4-5.0); ALBUMIN/GLOBULIN RATIO 0.8 (1.0-1.7); ALK PHOS 152 U/L (46-116); ALT (SGPT) 22 U/L (14-59); AST (SGOT) 24 U/L (15-37); LIPASE 210 U/L (73-393); TOTAL BILIRUBIN 0.2 mg/dL (0.2-1.0); TOTAL PROTEIN 7.6 g/dL (6.4-8.2)
[2018-01-28 21:59] LABS: TROPONINI < 0.017 ng/mL (0.000-0.055)
[2018-01-28] MEDS ORDERED: CONTRAST GIVEN. MC (22:00)
[2018-01-28] MEDS: IOHEXOL 300 MG/ML 100ML VIAL. IV (22:19)
[2018-01-28 22:26] LABS: BILIRUBIN,URINE NEGATIVE (NEG); CLARITY,URINE CLEAR; COLOR,URINE YELLOW; GLUCOSE,URINE 250 mg/dL (NEG); NITRITE,URINE NEGATIVE (NEG); PH,URINE 6.5; PROTEIN,URINE NEGATIVE (NEG-TRACE); UROBILINOGEN,URINE 0.2 mg/dL (0.2 mg/dL)
[2018-01-28] MEDS: MORPHINE SULFATE 4 MG/ML DISP.SYRIN. IV (22:40)
[2018-01-28 22:45] LABS: BACTERIA,URINE 0 /HPF (0-FEW); RBC,URINE 0 /HPF (0-2); SQUAMOUS EPITHELIAL CELL,UR FEW /LPF; WBC,URINE 0 /HPF (0-4)
== END 2018-01-28 23:56 | disposition home or self-care (01) ==
LOC: ER 20:58
DX: G89.29 Other chronic pain (principal); R10.31 Right lower quadrant pain; E11.65 Type 2 diabetes mellitus with hyperglycemia; R19.7 Diarrhea, unspecified; J44.9 Chronic obstructive pulmonary disease, unspecified; Z90.710 Acquired absence of both cervix and uterus; Z90.49 Acquired absence of other specified parts of digestive tract; Z98.890 Other specified postprocedural states; Z88.0 Allergy status to penicillin; Z88.2 Allergy status to sulfonamides; Z88.4 Allergy status to anesthetic agent; Z88.5 Allergy status to narcotic agent; Z88.8 Allergy status to other drugs, medicaments and biological substances; Z91.041 Radiographic dye allergy status
CPT/HCPCS: 36415; 74177; 80053; 81001; 83690; 84484; 85025; 93005; 96361; 96374; 96375; 96376; 99285-25; J2270; J2405; J7030; Q9967

== ENCOUNTER 2018-02-07 20:59 | Emergency (ER) | payer BC, OTHER ==
[2018-02-07] MEDS: IPRATRPIUM/ALBUTEROL 0.5/2.5MG 3 ML NEBU. NEB (21:49)
[2018-02-07] MEDS: ALBUTEROL SULFATE 2.5 MG/3 ML NEBU. NEB (21:58)
[2018-02-07] MEDS: methylPREDNISolone SOD SUCC PF 125 MG/2 ML VIAL. IM (22:36)
[2018-02-07] MEDS: diphenhydrAMINE 50 MG/ML VIAL IM (22:36)
== END 2018-02-07 22:55 | disposition home or self-care (01) ==
LOC: ER 20:59
DX: J45.901 Unspecified asthma with (acute) exacerbation (principal); J45.909 Unspecified asthma, uncomplicated; J44.9 Chronic obstructive pulmonary disease, unspecified; E11.9 Type 2 diabetes mellitus without complications; I10 Essential (primary) hypertension; Z90.710 Acquired absence of both cervix and uterus; Z90.49 Acquired absence of other specified parts of digestive tract; Z91.041 Radiographic dye allergy status; Z88.5 Allergy status to narcotic agent; Z88.0 Allergy status to penicillin; Z88.2 Allergy status to sulfonamides; Z88.8 Allergy status to other drugs, medicaments and biological substances; Z91.048 Other nonmedicinal substance allergy status
CPT/HCPCS: 94640; 96372; 99284; J1200; J2930; J7613; J7620

== ENCOUNTER 2018-02-08 17:24 | Observation (INO) | payer BC, OTHER ==
[2018-02-08] MEDS: IPRATRPIUM/ALBUTEROL 0.5/2.5MG 3 ML NEBU. NEB (17:56)
[2018-02-08] MEDS ORDERED: methylPREDNISolone SOD SUCC PF 125 MG/2 ML VIAL. (18:39)
[2018-02-08] MEDS: diphenhydrAMINE 50 MG/ML VIAL IVP (18:42)
[2018-02-08] MEDS: methylPREDNISolone SOD SUCC PF 125 MG/2 ML VIAL. IV (18:42)
[2018-02-08] MEDS: ALBUTEROL SULFATE 2.5 MG/3 ML NEBU. NEB ×2 (18:45→22:15)
[2018-02-08 21:44] LABS: ADD MAN DIFF? YES; BASO % 0 % (0-3); EOS % 0 % (0-3); HEMATOCRIT 38.2 % (36.0-47.0); LYMPH # 0.6 x10^3/uL (1.0-4.8); LYMPH % 5 % (24-48); MEAN CORPUSCULAR HEMOGLOBIN 29 pg (25-35); MEAN CORPUSCULAR HGB CONC 34 g/dL (31-37); MEAN CORPUSCULAR VOLUME 86 fL (79-100); MONO # 0.2 x10^3/uL (0.0-1.1); MONO % 1 % (0-9); NEUT # 10.7 x10^3uL (1.8-7.7); NEUT % 93 % (31-73); PLATELET COUNT 280 x10^3/uL (140-400); RED BLOOD COUNT 4.46 x10^6/uL (3.50-5.40); RED CELL DISTRIBUTION WIDTH 14.9 % (11.5-14.5); WHITE BLOOD COUNT 11.5 x10^3/uL (4.0-11.0)
[2018-02-08 21:54] LABS: INR 2.7 (0.8-1.1); PARTIAL THROMBOPLASTIN TIME 38 SEC (24-38); PROTHROMBIN TIME PATIENT 27.6 SEC (11.7-14.0)
[2018-02-08 21:57] LABS: D-DIMER < 0.27 ug/mlFEU (0.00-0.50)
[2018-02-08 22:00] LABS: ANION GAP 14 (6-14); BLOOD UREA NITROGEN 18 mg/dL (7-20); CALCIUM 8.9 mg/dL (8.5-10.1); CARBON DIOXIDE 23 mmol/L (21-32); CHLORIDE 95 mmol/L (98-107); CREATININE 1.1 mg/dL (0.6-1.0); GFR 49.7; POTASSIUM 3.6 mmol/L (3.5-5.1); SODIUM 132 mmol/L (136-145)
[2018-02-08] MEDS ORDERED: MORPHINE SULFATE 4 MG/ML DISP.SYRIN. IV (22:00)
[2018-02-08] MEDS ORDERED: ACETAMINOPHEN 325 MG TABLET. PO (22:00)
[2018-02-08 22:03] LABS: TROPONINI < 0.017 ng/mL (0.000-0.055)
[2018-02-08 22:05] LABS: % BANDS 3 % (0-9); % LYMPHS 6 % (24-48); % MONOS 1 % (0-10); % SEGS 90 % (35-66); GLUCOSE 533 mg/dL (70-99); PLT ESTIMATE ADEQUATE (ADEQUATE)
[2018-02-08] MEDS ORDERED: INSULIN REGULAR 100 UNIT/ML 3ML VIAL. IV (22:30)
[2018-02-08] MEDS ORDERED: MORPHINE SULFATE 10 MG/ML VIAL. IV (22:30)
[2018-02-08] MEDS: WARFARIN 5 MG TABLET. PO (22:53)
[2018-02-08] MEDS: IV NORMAL SALINE 1000ML BAG 1,000 ML IV (22:54)
[2018-02-08] MEDS: MORPHINE SULFATE 4 MG/ML DISP.SYRIN. IV (23:01)
[2018-02-08] MEDS: MAGNESIUM SULFATE 2GM 50 ML IV (23:02)
[2018-02-08] MEDS: INSULIN LISPRO 300 UNITS/3 ML INSULN.PEN. SQ (23:21)
[2018-02-08] MEDS: INSULIN GLARGINE 300 UNITS/3 ML INSULN.PEN. SQ (23:22)
[2018-02-08 23:54] LABS: POC GLUCOSE 489 mg/dL (70-99)
[2018-02-09 00:25] LABS: POC GLUCOSE 502 mg/dL (70-99)
[2018-02-09] MEDS: INSULIN LISPRO 300 UNITS/3 ML INSULN.PEN. SQ ×5 (00:32→17:28)
[2018-02-09] MEDS: HYDROcodone/APAP 10/325 1 TAB TABLET PO ×4 (02:38→21:37)
[2018-02-09] MEDS: diphenhydrAMINE 50 MG/ML VIAL IVP ×3 (05:19→18:13)
[2018-02-09 06:26] LABS: ADD MAN DIFF? NO
[2018-02-09 06:31] LABS: BASO % 0 % (0-3); EOS % 0 % (0-3); HEMATOCRIT 36.7 % (36.0-47.0); HEMOGLOBIN 12.3 g/dL (12.0-15.5); LYMPH # 1.4 x10^3/uL (1.0-4.8); LYMPH % 11 % (24-48); MEAN CORPUSCULAR HEMOGLOBIN 29 pg (25-35); MEAN CORPUSCULAR HGB CONC 34 g/dL (31-37); MEAN CORPUSCULAR VOLUME 86 fL (79-100); MONO # 0.3 x10^3/uL (0.0-1.1); MONO % 3 % (0-9); NEUT # 10.9 x10^3uL (1.8-7.7); NEUT % 86 % (31-73); PLATELET COUNT 297 x10^3/uL (140-400); RED BLOOD COUNT 4.29 x10^6/uL (3.50-5.40); RED CELL DISTRIBUTION WIDTH 15.1 % (11.5-14.5); WHITE BLOOD COUNT 12.7 x10^3/uL (4.0-11.0)
[2018-02-09 06:51] LABS: ANION GAP 12 (6-14); BLOOD UREA NITROGEN 16 mg/dL (7-20); CALCIUM 8.9 mg/dL (8.5-10.1); CARBON DIOXIDE 24 mmol/L (21-32); CHLORIDE 100 mmol/L (98-107); CREATININE 0.9 mg/dL (0.6-1.0); GFR 62.6; GLUCOSE 366 mg/dL (70-99); POTASSIUM 3.9 mmol/L (3.5-5.1); SODIUM 136 mmol/L (136-145)
[2018-02-09 07:41] LABS: POC GLUCOSE 321 mg/dL (70-99)
[2018-02-09] MEDS: IPRATRPIUM/ALBUTEROL 0.5/2.5MG 3 ML NEBU. NEB (07:53)
[2018-02-09] MEDS: INSULIN GLARGINE 300 UNITS/3 ML INSULN.PEN. SQ ×2 (09:00→20:49)
[2018-02-09] MEDS ORDERED: INSULIN GLARGINE 300 UNITS/3 ML INSULN.PEN. SQ (09:00)
[2018-02-09] MEDS: methylPREDNISolone SOD SUCC PF 125 MG/2 ML VIAL. IV ×4 (10:15→21:37)
[2018-02-09 11:14] LABS: POC GLUCOSE 384 mg/dL (70-99)
[2018-02-09] MEDS: OMEGA-3 FATTY ACIDS/FISH OIL 1,000 MG CAPSULE. PO (12:02)
[2018-02-09] MEDS: LISINOPRIL 20 MG TABLET PO (12:03)
[2018-02-09] MEDS: METOPROLOL SUCC 24HR ER 25 MG TAB.ER.24H. PO (12:03)
[2018-02-09] MEDS: DULoxetine HCL 30 MG CAPSULE.DR PO (12:03)
[2018-02-09] MEDS: ALBUTEROL SULFATE 2.5 MG/3 ML NEBU. NEB ×3 (12:56→19:48)
[2018-02-09] MEDS: BUDESONIDE 0.5 MG/2 ML NEBU. NEB ×2 (12:56→19:48)
[2018-02-09] MEDS: WARFARIN 10 MG TABLET. PO (15:29)
[2018-02-09] MEDS ORDERED: NON FORMULARY ITEM (Fluticasone/Salmeterol (Advair 250-50 Diskus) 1 EACH) IH (16:00)
[2018-02-09] MEDS ORDERED: DEXTROSE 50% 25 GM / 50ML DISP.SYRIN. IV (17:15)
[2018-02-09] MEDS: ONDANSETRON PF 4 MG/2 ML VIAL. IV (17:22)
[2018-02-09] MEDS: SIMVASTATIN 10 MG TABLET PO (20:40)
[2018-02-09] MEDS: MONTELUKAST SODIUM 10 MG TABLET. PO (20:40)
[2018-02-09] MEDS: EZETIMIBE 10 MG TABLET. PO (20:40)
[2018-02-09 20:59] LABS: POC GLUCOSE 342 mg/dL (70-99)
[2018-02-09 21:00] LABS: POC GLUCOSE 349 mg/dL (70-99)
[2018-02-09] MEDS: ONDANSETRON ODT 4 MG TAB.RAPDIS. PO (23:18)
[2018-02-10] MEDS: diphenhydrAMINE 50 MG/ML VIAL IVP ×2 (00:43→10:31)
[2018-02-10] MEDS: methylPREDNISolone SOD SUCC PF 125 MG/2 ML VIAL. IV (06:01)
[2018-02-10] MEDS: LINACLOTIDE 145 MCG CAPSULE. PO (06:01)
[2018-02-10] MEDS: HYDROcodone/APAP 10/325 1 TAB TABLET PO (06:01)
[2018-02-10] MEDS: ALBUTEROL SULFATE 2.5 MG/3 ML NEBU. NEB ×3 (07:44→15:49)
[2018-02-10] MEDS: BUDESONIDE 0.5 MG/2 ML NEBU. NEB ×2 (07:44→15:49)
[2018-02-10 08:41] LABS: POC GLUCOSE 375 mg/dL (70-99)
[2018-02-10] MEDS: DULoxetine HCL 30 MG CAPSULE.DR PO (08:55)
[2018-02-10] MEDS: OMEGA-3 FATTY ACIDS/FISH OIL 1,000 MG CAPSULE. PO (08:56)
[2018-02-10] MEDS: LISINOPRIL 20 MG TABLET PO (08:56)
[2018-02-10] MEDS: METOPROLOL SUCC 24HR ER 25 MG TAB.ER.24H. PO (08:56)
[2018-02-10] MEDS: INSULIN LISPRO 300 UNITS/3 ML INSULN.PEN. SQ ×6 (09:01→17:19)
[2018-02-10] MEDS: INSULIN GLARGINE 300 UNITS/3 ML INSULN.PEN. SQ (09:01)
[2018-02-10 10:02] LABS: INR 3.4 (0.8-1.1); PROTHROMBIN TIME PATIENT 33.7 SEC (11.7-14.0)
[2018-02-10] MEDS: ONDANSETRON ODT 4 MG TAB.RAPDIS. PO (10:30)
[2018-02-10 11:28] LABS: POC GLUCOSE 341 mg/dL (70-99)
[2018-02-10] MEDS: WARFARIN 10 MG TABLET. PO (15:51)
[2018-02-10 16:40] LABS: POC GLUCOSE 277 mg/dL (70-99)
== END 2018-02-10 17:35 | disposition home or self-care (01) ==
LOC: ER 17:24 → 5 SOUTH 21:30
DX: J45.901 Unspecified asthma with (acute) exacerbation (principal); I10 Essential (primary) hypertension; E78.5 Hyperlipidemia, unspecified; M19.90 Unspecified osteoarthritis, unspecified site; E11.9 Type 2 diabetes mellitus without complications; F41.9 Anxiety disorder, unspecified; R10.9 Unspecified abdominal pain
CPT/HCPCS: 36415; 71045; 80048; 82962; 84484; 85007; 85025; 85379; 85610; 85730; 93005; 94640; 94760; 96365; 96366; 96372; 96374; 96375; 96376; 99285-25; G0378; G0379; J1200; J1815; J2060; J2270; J2405; J2930; J3475; J7030; J7613; J7620; J7626; Q0162

== ENCOUNTER 2018-03-19 21:22 | Emergency (ER) | payer BC, OTHER ==
[2018-03-19] MEDS: ASPIRIN CHEWABLE 81 MG TABLET. PO (23:01)
[2018-03-19 23:40] LABS: ADD MAN DIFF? NO
[2018-03-19 23:42] LABS: BASO # 0.1 x10^3/uL (0.0-0.2); BASO % 1 % (0-3); EOS # 0.2 x10^3/uL (0.0-0.7); EOS % 2 % (0-3); HEMATOCRIT 39.5 % (36.0-47.0); HEMOGLOBIN 13.7 g/dL (12.0-15.5); LYMPH # 3.4 x10^3/uL (1.0-4.8); LYMPH % 33 % (24-48); MEAN CORPUSCULAR HEMOGLOBIN 30 pg (25-35); MEAN CORPUSCULAR HGB CONC 35 g/dL (31-37); MEAN CORPUSCULAR VOLUME 85 fL (79-100); MONO # 0.7 x10^3/uL (0.0-1.1); MONO % 7 % (0-9); NEUT % 57 % (31-73); PLATELET COUNT 263 x10^3/uL (140-400); RED BLOOD COUNT 4.63 x10^6/uL (3.50-5.40); RED CELL DISTRIBUTION WIDTH 14.8 % (11.5-14.5); WHITE BLOOD COUNT 10.5 x10^3/uL (4.0-11.0)
[2018-03-19 23:52] LABS: ANION GAP 9 (6-14); BLOOD UREA NITROGEN 16 mg/dL (7-20); BUN/CREATININE RATIO 18 (6-20); CARBON DIOXIDE 27 mmol/L (21-32); CHLORIDE 99 mmol/L (98-107); CREATININE 0.9 mg/dL (0.6-1.0); GFR 62.6; GLUCOSE 218 mg/dL (70-99); POTASSIUM 3.7 mmol/L (3.5-5.1); SODIUM 135 mmol/L (136-145)
[2018-03-19 23:55] LABS: INR 3.7 (0.8-1.1)
[2018-03-19 23:58] LABS: ALBUMIN 3.1 g/dL (3.4-5.0); ALBUMIN/GLOBULIN RATIO 0.8 (1.0-1.7); ALK PHOS 138 U/L (46-116); ALT (SGPT) 23 U/L (14-59); TOTAL BILIRUBIN 0.2 mg/dL (0.2-1.0); TOTAL PROTEIN 6.8 g/dL (6.4-8.2)
[2018-03-19 23:59] LABS: AST (SGOT) 20 U/L (15-37); LIPASE 223 U/L (73-393); MAGNESIUM 1.6 mg/dL (1.8-2.4)
[2018-03-20] LABS: TROPONINI < 0.017 ng/mL (0.000-0.055)
[2018-03-20 00:05] LABS: NT-PRO BNP 40 pg/mL (0-124)
[2018-03-20 00:05] LABS: CKMB INDEX 0.9 % (0-4); CKMB MASS 0.9 ng/mL (0.0-3.6); CREATINE KINASE 96 U/L (26-192)
[2018-03-20] MEDS: IOHEXOL 300 MG/ML 100ML VIAL. IV (00:14)
[2018-03-20] MEDS ORDERED: CONTRAST GIVEN. MC (00:15)
[2018-03-20] MEDS: MORPHINE SULFATE 4 MG/ML DISP.SYRIN. IV (00:28)
[2018-03-20] MEDS ORDERED: MAGNESIUM SULFATE 2GM 50 ML IV (00:39)
[2018-03-20] MEDS: IV NORMAL SALINE 1000ML BAG 1,000 ML IV (00:46)
[2018-03-20] MEDS: MAGNESIUM SULFATE 2GM 50 ML IV (00:47)
== END 2018-03-20 02:45 | disposition home or self-care (01) ==
LOC: ER 03-20 02:45
DX: R07.89 Other chest pain (principal); R91.1 Solitary pulmonary nodule; J44.9 Chronic obstructive pulmonary disease, unspecified; E11.9 Type 2 diabetes mellitus without complications; I10 Essential (primary) hypertension; Z88.0 Allergy status to penicillin; Z88.2 Allergy status to sulfonamides; Z88.4 Allergy status to anesthetic agent; Z88.5 Allergy status to narcotic agent; Z88.8 Allergy status to other drugs, medicaments and biological substances; Z91.041 Radiographic dye allergy status
CPT/HCPCS: 36415; 71275; 80053; 82553; 83690; 83735; 83880; 84484; 85025; 85610; 93005; 96365; 96366; 96375; 99285-25; J2270; J3475; J7030; Q9967

== ENCOUNTER 2018-03-29 22:12 | Emergency (ER) | payer BC, OTHER ==
[~2018-03-29] VITALS: Ht 165.1 cm; Wt 122.5 kg
[~2018-03-29 22:12] MED LIST changes: +ACET-704 PO; +IPRA3AMP29 NEB; +LINA145C PO; +LISI-130 PO; +LISI-334 PO; -LISI40TA PO; +OMEG1CAP6 PO; +ONDA4TAB10 PO; +RANI150T21 PO; -RANI150T6 PO; +TRAM1TAB4 PO
[2018-03-29] MEDS ORDERED: IV NORMAL SALINE 1000ML BAG 1,000 ML IV ONE (22:45)
[2018-03-29] MEDS ORDERED: ONDANSETRON PF 4 MG/2 ML VIAL. IV ONE (23:00)
[2018-03-29] MEDS ORDERED: MORPHINE SULFATE 4 MG/ML DISP.SYRIN. IV ONE (23:00)
[2018-03-29 23:16] LABS: BILIRUBIN,URINE NEGATIVE (NEG); CLARITY,URINE CLEAR; COLOR,URINE YELLOW; NITRITE,URINE NEGATIVE (NEG); PROTEIN,URINE NEGATIVE (NEG-TRACE); UROBILINOGEN,URINE 0.2 mg/dL (0.2 mg/dL)
[2018-03-29 23:29] LABS: BACTERIA,URINE FEW /HPF (0-FEW); RBC,URINE 0 /HPF (0-2); SQUAMOUS EPITHELIAL CELL,UR FEW /LPF; WBC,URINE 0 /HPF (0-4)
[2018-03-30] MEDS ORDERED: MORPHINE SULFATE 4 MG/ML DISP.SYRIN. IV ONE ×2 (00:30→02:45)
[2018-03-30 00:37] LABS: BASO # 0.1 x10^3/uL (0.0-0.2); BASO % 1 % (0-3); EOS # 0.3 x10^3/uL (0.0-0.7); EOS % 3 % (0-3); HEMATOCRIT 37.7 % (36.0-47.0); LYMPH # 3.5 x10^3/uL (1.0-4.8); LYMPH % 40 % (24-48); MEAN CORPUSCULAR HEMOGLOBIN 30 pg (25-35); MEAN CORPUSCULAR HGB CONC 35 g/dL (31-37); MEAN CORPUSCULAR VOLUME 85 fL (79-100); MONO # 0.6 x10^3/uL (0.0-1.1); MONO % 7 % (0-9); NEUT # 4.3 x10^3uL (1.8-7.7); NEUT % 49 % (31-73); PLATELET COUNT 308 x10^3/uL (140-400); RED BLOOD COUNT 4.42 x10^6/uL (3.50-5.40); RED CELL DISTRIBUTION WIDTH 14.7 % (11.5-14.5); WHITE BLOOD COUNT 8.8 x10^3/uL (4.0-11.0)
[2018-03-30 00:44] LABS: CALCIUM 8.6 mg/dL (8.5-10.1); CREATININE 0.7 mg/dL (0.6-1.0); GFR 83.7; POTASSIUM 3.4 mmol/L (3.5-5.1)
[2018-03-30 00:49] LABS: ALBUMIN 2.8 g/dL (3.4-5.0); ALBUMIN/GLOBULIN RATIO 0.8 (1.0-1.7); TOTAL BILIRUBIN 0.2 mg/dL (0.2-1.0); TOTAL PROTEIN 6.3 g/dL (6.4-8.2)
--- NOTE | 2018-03-30 01:04 | PHYS DOC ---
Past Medical History Past Medical History: Asthma, COPD, Diabetes-Type II, Hypertension Additional Past Medical Histor: appy, rubén, hysterectomy Past Surgical History: Cholecystectomy, Hysterectomy, Other Additional Past Surgical Histo: bilateral cataract, bilater shoulder, hernia x7 Alcohol Use: None Drug Use: None Adult General Chief Complaint Chief Complaint: ABDOMINAL PAIN HPI HPI Patient is a 67 year old female who presents to the emergency room with complaints of increased lower abdominal pain after feeling something pop while bending while cleaning yesterday at approximately 1600 yesterday evening. She states that she feels bloated and nauseated. She denies any change in movements. States that she had a normal bowel movement earlier today. She denies any vomiting or diarrhea. She denies fever, dysuria, hematuria, urinary frequency, discharge, vaginal odor, back pain, shortness of breath, or chest pain. She has an extensive abdominal history including several hernia operations , 18 inches. Clinically improved, hysterectomy, and her gallbladder being taken out. Currently she rates her pain as a 10 out of 10 on the pain scale and states that nothing seems to help her pain. Patient states she is allergic to penicillin, sulfa drugs, Percocet, fentanyl, and dilaudid. She is requesting. morphine for control of her pain. Review of Systems Review of Systems Constitutional: Denies fever or chills Cardiovascular: Denies chest pain GI: Denies vomiting, bloody stools or diarrhea, reports abdominal pain after feeling a popping sensation and bending yesterday evening, reports abdominal fullness and nausea, : Denies irregular vaginal discharge, pelvic pain, dysuria, increased urinary frequency, or hematuria [] Musculoskeletal: Denies back pain or joint pain [] Integument: Denies rash or skin lesions [] Neurologic: Denies headache, focal weakness or sensory changes [] Endocrine: Denies polyuria or polydipsia [] All other systems were reviewed and found to be within normal limits, except as documented in this note. Current Medications Current Medications Current Medications Medications (Trade) Dose Ordered Sig/Irish Start Time Stop Time Status Last Admin Dose Admin Info (CONTRAST GIVEN -- Rx MONITORING) 1 each PRN DAILY PRN 03/30/18 03:00 04/01/18 02:59 Iohexol (Omnipaque 300 Mg/ml) 75 ml 1X ONCE 03/30/18 03:00 8/12/18 03:01 DC Morphine Sulfate (Morphine Sulfate) 4 mg 1X ONCE 03/30/18 03:15 03/30/18 03:16 DC 03/30/18 03:10 4 MG Ondansetron HCl (Zofran) 4 mg 1X ONCE 03/29/18 23:00 03/29/18 23:01 DC 03/29/18 23:00 4 MG Sodium Chloride 1,000 ml @ 1,000 mls/hr 1X ONCE 03/29/18 22:45 03/29/18 23:44 DC 03/29/18 22:45 1,000 MLS/HR Allergies Allergies Allergies Coded Allergies Type Severity Reaction Last Updated Verified Penicillins Allergy Severe itching, dry mouth, tongue swells 01/24/18 Yes Sulfa (Sulfonamide Antibiotics) Allergy Intermediate ITCHING DRY MOUTH, hives/ swelling 12/16/15 Yes fentanyl Allergy Intermediate 12/16/15 Yes hydromorphone HCl Allergy Intermediate MORPHINE OK 12/16/15 Yes methylprednisolone Allergy Intermediate RED MAN SYNDROME 10/11/16 Yes prednisone Allergy Intermediate RED MED SYNDROME 10/11/16 Yes gluten Allergy Mild bloating 04/18/17 Yes I S O L A T I O N *CONTACT* Allergy Unknown 02/04/17 Yes oxycodone HCl Adverse Reaction Intermediate "i FEEL LIKE I HAVE WORMS IN ME" Yes Physical Exam Physical Exam Constitutional: Well developed, well nourished, no acute distress, non-toxic appearance, morbidly obese. [] HENT: Normocephalic, atraumatic, bilateral external ears normal, oropharynx moist, no oral exudates, nose normal. [] Eyes: PERRLA, conjunctiva normal, no discharge. [] Neck: no stridor. [] Cardiovascular:Heart rate regular rhythm, no murmur [] Lungs & Thorax: Bilateral breath sounds clear to auscultation [] Abdomen: Bowel sounds normal, no pulsatile masses, midline umbilical to lower abdomen is firm and tender to palpation, suspicious for hernia . [] Skin: Warm, dry, no erythema, no rash. [] Extremities: No tenderness, no cyanosis, no edema. [] Neurologic: Alert and oriented X 3, normal motor function, normal sensory function, no focal deficits noted. [] Psychologic: Affect normal, judgement normal, mood normal. [] Current Patient Data Vital Signs Vital Signs Date Time Temp Pulse Resp B/P (MAP) Pulse Ox O2 Delivery O2 Flow Rate FiO2 03/30/18 03:30 84 18 130/84 (99) 99 03/30/18 01:30 Room Air 03/29/18 22:30 98.5 98.5 Lab Values Laboratory Tests Test 03/29/18 23:00 03/30/18 00:15 Urine Collection Type Unknown Urine Color Yellow Urine Clarity Clear Urine pH 6.0 Urine Specific [place] <=1.005 Urine Protein Negative mg/dL (NEG-TRACE) Urine Glucose (UA) 100 mg/dL (NEG) Urine Ketones (Stick) Negative mg/dL (NEG) Urine Blood Negative (NEG) Urine Nitrite Negative (NEG) Urine Bilirubin Negative (NEG) Urine Urobilinogen Dipstick 0.2 mg/dL (0.2 mg/dL) Urine Leukocyte Esterase Negative (NEG) Urine RBC 0 /HPF (0-2) Urine WBC 0 /HPF (0-4) Urine Squamous Epithelial Cells Few /LPF Urine Bacteria Few /HPF (0-FEW) White Blood Count 8.8 x10^3/uL (4.0-11.0) Red Blood Count 4.42 x10^6/uL (3.50-5.40) Hemoglobin 13.0 g/dL (12.0-15.5) Hematocrit 37.7 % (36.0-47.0) Mean Corpuscular Volume 85 fL (79-100) Mean Corpuscular Hemoglobin 30 pg (25-35) Mean Corpuscular Hemoglobin Concent 35 g/dL (31-37) Red Cell Distribution Width 14.7 % (11.5-14.5) H Platelet Count 308 x10^3/uL (140-400) Neutrophils (%) (Auto) 49 % (31-73) Lymphocytes (%) (Auto) 40 % (24-48) Monocytes (%) (Auto) 7 % (0-9) Eosinophils (%) (Auto) 3 % (0-3) Basophils (%) (Auto) 1 % (0-3) Neutrophils # (Auto) 4.3 x10^3uL (1.8-7.7) Lymphocytes # (Auto) 3.5 x10^3/uL (1.0-4.8) Monocytes # (Auto) 0.6 x10^3/uL (0.0-1.1) Eosinophils # (Auto) 0.3 x10^3/uL (0.0-0.7) Basophils # (Auto) 0.1 x10^3/uL (0.0-0.2) Sodium Level 134 mmol/L (136-145) L Potassium Level 3.4 mmol/L (3.5-5.1) L Chloride Level 101 mmol/L (98-107) Carbon Dioxide Level 27 mmol/L (21-32) Anion Gap 6 (6-14) Blood Urea Nitrogen 13 mg/dL (7-20) Creatinine 0.7 mg/dL (0.6-1.0) Estimated GFR (Cockcroft-Gault) 83.7 BUN/Creatinine Ratio 19 (6-20) Glucose Level 127 mg/dL (70-99) H Calcium Level 8.6 mg/dL (8.5-10.1) Total Bilirubin 0.2 mg/dL (0.2-1.0) Aspartate Amino Transferase (AST) 23 U/L (15-37) Alanine Aminotransferase (ALT) 25 U/L (14-59) Alkaline Phosphatase 128 U/L (46-116) H Total Protein 6.3 g/dL (6.4-8.2) L Albumin 2.8 g/dL (3.4-5.0) L Albumin/Globulin Ratio 0.8 (1.0-1.7) L Lipase 208 U/L (73-393) Laboratory Tests 03/30/18 00:15 Laboratory Tests 03/30/18 00:15 EKG EKG [] Radiology/Procedures Radiology/Procedures [] Impressions: IMPRESSION: 1. Ventral hernia repair without bowel containing hernia. 2. Small fat-containing left inguinal hernia. 3. No bowel obstruction. Course & Med Decision Making Course & Med Decision Making Pertinent Labs and Imaging studies reviewed. (See chart for details) Patient is a 67-year-old female who presented to the emergency room with complaints of lower abdominal pain with a sensation of being bloated and nausea since feeling a pop in her lower abdomen while bending over and cleaning yesterday at 1600. VSS, physical exam findings and patient history are concerning for an acute hernia, or perforated viscus. Labs including a CBC, CMP, lipase, and UA were ordered. A limited ultrasound of the patient's abdomen was ordered due to history of [address] scans within the last 6 months at this facility. The patient was given a liter of normal saline, Zofran, and 2 doses of morphine while in my care. Her CBC is unremarkable, her urinalysis is also unremarkable, patient's sodium is 134, her potassium is 3.4 with partial completion of her CMP. The official ultrasound report is not back at this time patient was transferred to the care of Dr. Murillo at approximately 1:00 this morning. He verbalizes understanding of pending ultrasound, and lab results. [] Dragon Disclaimer Dragon Disclaimer This electronic medical record was generated, in whole or in part, using a voice recognition dictation system. Departure Departure Impression: Primary Impression: Abdominal pain Additional Impression: Left inguinal hernia Disposition: 01 HOME, SELF-CARE Condition: STABLE Referrals: Meagan ALVAREZ MD (PCP) Patient Instructions: Abdominal Pain, Inguinal Hernia, Adult Additional Instructions: Follow-up with your primary care provider in the next few days. Problem Qualifiers Primary Impression: Abdominal pain Abdominal location: unspecified location Qualified Codes: R10.9 - Unspecified abdominal pain GIANNA VIDES APRN Mar 30, 2018 01:04 BRIELLE MURILLO Jr. DO Mar 30, 2018 04:04
--- NOTE | 2018-03-30 02:11 | RAD ---
Ultrasound abdomen limited 03/29/2018 CLINICAL INDICATION: Abdominal pain and pop when bending, history of hernia. COMPARISON: CT abdomen and pelvis 02/17/2018 FINDINGS: At the area of palpable concern in the anterior right lower abdomen, no fluid collection or abdominal wall defect to suggest hernia with or without Valsalva technique. Inferior and medial to the area of concern, there is scattered subcutaneous thickening and edema at the area of scar with bowel loops protruding anteriorly without definitive evidence for hernia. IMPRESSION: 1. At the area of concern in the anterior right lower abdomen, no suspicious fluid or hernia. 2. At the area of scar, there are bowel loops which may protrude anteriorly without definitive hernia. If there is concern, CT abdomen and pelvis can be obtained. Electronically signed by: Ike Moss MD (03/30/2018 2:07 AM) [facility]
[2018-03-30] MEDS ORDERED: IOHEXOL 300 MG/ML 100ML VIAL. IV ONE (03:00)
[2018-03-30] MEDS ORDERED: CONTRAST GIVEN. MC PRN (03:00)
[2018-03-30] MEDS ORDERED: MORPHINE SULFATE 4 MG/ML DISP.SYRIN. IM ONE (03:15)
[2018-03-30 03:30] VITALS: BP 130/84
--- NOTE | 2018-03-30 03:52 | RAD ---
CT abdomen pelvis without contrast 03/30/2018 CLINICAL INDICATION: Abdominal pain. COMPARISON: CT abdomen and pelvis 02/17/2018 *One or more of the following individualized dose reduction techniques were utilized for this examination: 1. Automated exposure control. 2. Adjustment of the mA and/or kV according to patient size. 3. Use of iterative reconstruction technique. FINDINGS: Heart size is normal. Visualized lung bases unremarkable. Evaluation of the solid abdominal pelvic viscera, lymphadenopathy and vasculature is limited in the absence of intravenous contrast. Unenhanced contours of the liver, spleen, adrenal glands, pancreas and kidneys are grossly unremarkable. Cholecystectomy. Abdominal aorta normal in caliber with trace calcified atheromatous disease. No bowel obstruction. There is no definite defect to the mesh material. Urinary bladder unremarkable. Hysterectomy with the vaginal cuff unremarkable. No pelvic free fluid. There is a small fat-containing left inguinal hernia. Lower lumbar spondylosis greatest at L4-L5. IMPRESSION: 1. Ventral hernia repair without bowel containing hernia. 2. Small fat-containing left ankle hernia. 3. No bowel obstruction. Electronically signed by: Ike Moss MD (03/30/2018 3:48 AM) [id number]
== END 2018-03-30 04:25 | disposition home or self-care (01) ==
LOC: ER 22:12
DX: K40.90 Unilateral inguinal hernia, without obstruction or gangrene, not specified as recurrent (principal); J44.9 Chronic obstructive pulmonary disease, unspecified; E11.9 Type 2 diabetes mellitus without complications; I10 Essential (primary) hypertension; Z98.890 Other specified postprocedural states; Z90.49 Acquired absence of other specified parts of digestive tract; Z90.89 Acquired absence of other organs; Z90.710 Acquired absence of both cervix and uterus; Z88.0 Allergy status to penicillin; Z88.2 Allergy status to sulfonamides; Z88.4 Allergy status to anesthetic agent; Z88.5 Allergy status to narcotic agent; Z88.8 Allergy status to other drugs, medicaments and biological substances; Z91.041 Radiographic dye allergy status
CPT/HCPCS: 36415; 74176; 76705; 80053; 81001; 83690; 85025; 96372; 96374; 96375; 96376; 99285; J2270; J2405; J7030

== ENCOUNTER 2018-04-03 20:04 | Emergency (ER) | payer BC, OTHER ==
[~2018-04-03] VITALS: Ht 162.6 cm; Wt 122.5 kg
--- NOTE | 2018-04-03 22:34 | PHYS DOC ---
Past Medical History Past Medical History: Asthma, COPD, Diabetes-Type II, Hypertension Additional Past Medical Histor: appy, rubén, hysterectomy Past Surgical History: Cholecystectomy, Hysterectomy, Other Additional Past Surgical Histo: bilateral cataract, bilater shoulder, hernia x7 Alcohol Use: None Drug Use: None Adult General Chief Complaint Chief Complaint: HIP PAIN HPI HPI Patient is a 67-year-old female presents to the emergency department for evaluation of right hip pain. She states that 2 days ago, her right hip began hurting. She is able to bear weight, even without the use of her walker. She does report pain with palpation of the lateral aspect of her right hip, but is able to fully flex and extend her hip without significant discomfort. She denies any fall or injury. She denies any new back pain. She does have an extensive, but had a past medical history, with several ER visits in the recent months, including an ER visit earlier this week. Recent Test and imaging results and those from that earlier visit have been reviewed. The patient has not had any fevers, chills, numbness, weakness, or new distal edema. She denies any new back pain. There are no alleviating, or exacerbating factors to her symptoms except as noted above. Review of Systems Review of Systems Constitutional: Denies fever or chills [] Eyes: Denies change in visual acuity, redness, or eye pain [] HENT: Denies nasal congestion or sore throat [] Respiratory: Denies cough or shortness of breath [] Cardiovascular: The patient denies any shortness of breath, chest pain, palpitations, or orthopnea [] GI: Denies abdominal pain, nausea, vomiting, bloody stools or diarrhea [] : Denies dysuria or hematuria [] Musculoskeletal: Denies new back pain or joint pain, other than as noted in HPI [] Integument: Denies rash or skin lesions [] Neurologic: Denies headache, focal weakness or sensory changes [] Endocrine: Denies polyuria or polydipsia [] All other systems were reviewed and found to be within normal limits, except as documented in this note. Current Medications Current Medications Current Medications Medications (Trade) Dose Ordered Sig/Irish Start Time Stop Time Status Last Admin Dose Admin Acetaminophen (Tylenol) 1,000 mg 1X ONCE 04/03/18 23:45 04/03/18 23:46 Ibuprofen (Motrin) 600 mg 1X ONCE 04/03/18 23:00 04/03/18 23:28 DC Allergies Allergies Allergies Coded Allergies Type Severity Reaction Last Updated Verified Penicillins Allergy Severe itching, dry mouth, tongue swells 01/24/18 Yes Sulfa (Sulfonamide Antibiotics) Allergy Intermediate ITCHING DRY MOUTH, hives/ swelling 12/16/15 Yes fentanyl Allergy Intermediate 12/16/15 Yes hydromorphone HCl Allergy Intermediate MORPHINE OK 12/16/15 Yes methylprednisolone Allergy Intermediate RED MAN SYNDROME 10/11/16 Yes prednisone Allergy Intermediate RED MED SYNDROME 10/11/16 Yes gluten Allergy Mild bloating 04/18/17 Yes I S O L A T I O N *CONTACT* Allergy Unknown 02/04/17 Yes oxycodone HCl Adverse Reaction Intermediate "i FEEL LIKE I HAVE WORMS IN ME" Yes Physical Exam Physical Exam PHYSICAL EXAM: CONSTITUTIONAL: Well developed, well nourished HEAD: normocephalic, atraumatic EENT: PERRL, EOMI. Conjunctivae normal color, sclerae non-icteric; moist mucous membranes. NECK: Supple, non-tender; no meningismus. LUNGS: Lungs CTA, breathing even and unlabored. Normal air movement. HEART: Regular rate and rhythm, no murmur CHEST: No deformity; non-tender ABDOMEN: The abdomen is soft, and non-tender, no masses or bruits. EXTREM: Normal ROM; no deformity, no calf tenderness. Normal pulses palpable in all extremities. There is no pedal edema. There is tenderness to palpation in the right lateral hip area, without any skin changes or other significant abnormality. SKIN: No rash; no diaphoresis NEURO: Alert; normal speech and cognition; CN's grossly intact; strength grossly intact without focal deficit. BACK: No CVA TTP. Current Patient Data Vital Signs Vital Signs Date Time Temp Pulse Resp B/P (MAP) Pulse Ox O2 Delivery O2 Flow Rate FiO2 04/03/18 22:00 98.1 88 20 162/67 (98) 98 Room Air 98.1 EKG EKG [] Radiology/Procedures Radiology/Procedures [ER physician preliminary right hip x-ray interpretation: Degenerative changes without acute disease.] Course & Med Decision Making Course & Med Decision Making Pertinent Imaging studies reviewed. (See chart for details) []11:35 PM:Patient remains stable. I discussed test results, the need for close follow-up, and return precautions. Dragon Disclaimer Dragon Disclaimer This electronic medical record was generated, in whole or in part, using a voice recognition dictation system. Departure Departure Impression: Primary Impression: Pain in right hip Disposition: 01 HOME, SELF-CARE Condition: STABLE Referrals: Meagan ALVAREZ MD (PCP) Patient Instructions: Hip Exercises, Generic, SportsMed, Hip Pain Additional Instructions: Applying a heating pad to the affected area may help improve your symptoms. The prescribed medications may cause drowsiness-use caution while taking. Scripts Diclofenac Sodium (DICLOFENAC SODIUM) 50 Mg Tablet.dr 1 TAB PO BID, #20 TAB 0 Refills Prov: KODY MAGALLANES MD 04/03/18 Cyclobenzaprine Hcl (CYCLOBENZAPRINE HCL) 10 Mg Tablet 1 TAB PO TID PRN for PAIN, #30 TAB Prov: KODY MAGALLANES MD 04/03/18 KODY MAGALLANES MD Apr 03, 2018 22:34
[2018-04-03] MEDS ORDERED: IBUPROFEN 600 MG TABLET. PO ONE (23:00)
[2018-04-03] MEDS ORDERED: DICL50TA4 PO (23:41)
[2018-04-03] MEDS ORDERED: CYCL10TA2 PO (23:41)
[2018-04-03] MEDS ORDERED: ACETAMINOPHEN 500 MG TABLET PO ONE (23:45)
[2018-04-03 23:55] VITALS: BP 135/65
--- NOTE | 2018-04-04 10:01 | RAD ---
EXAM: AP and frog-leg lateral views of the right hip DATE: 04/03/2018 12:00 AM INDICATION: Right HIP PAIN COMPARISON: CT 03/30/2018 FINDINGS/ IMPRESSION: No evidence of acute fracture or dislocation. Right hip joint space is preserved without significant degenerative/proliferative change. Electronically signed by: Subhash Del Valle MD (04/04/2018 9:57 AM) [facility]
== END 2018-04-03 23:55 | disposition home or self-care (01) ==
LOC: ER 20:04
DX: M25.551 Pain in right hip (principal); J44.9 Chronic obstructive pulmonary disease, unspecified; E11.9 Type 2 diabetes mellitus without complications; I10 Essential (primary) hypertension; Z90.49 Acquired absence of other specified parts of digestive tract; Z90.710 Acquired absence of both cervix and uterus; Z88.0 Allergy status to penicillin; Z88.2 Allergy status to sulfonamides; Z88.5 Allergy status to narcotic agent; Z88.8 Allergy status to other drugs, medicaments and biological substances; Z91.041 Radiographic dye allergy status
CPT/HCPCS: 73502; 99284

== ENCOUNTER 2018-04-26 01:59 | Emergency (ER) | payer BC, OTHER ==
[~2018-04-26] VITALS: Ht 165.1 cm; Wt 122.5 kg
[~2018-04-26 01:59] MED LIST changes: -AMLO5TAB2 PO; +AMLO5TAB7 PO; +CYCL10TA2 PO; +DICL50TA4 PO
[2018-04-26] MEDS ORDERED: HYDROcodone/APAP 5/325MG 1 TAB TABLET PO ONE (03:30)
[2018-04-26 04:51] LABS: BILIRUBIN,URINE NEGATIVE (NEG); CLARITY,URINE CLEAR; COLOR,URINE YELLOW; NITRITE,URINE NEGATIVE (NEG); PH,URINE 6.5; PROTEIN,URINE NEGATIVE (NEG-TRACE); UROBILINOGEN,URINE 0.2 mg/dL (0.2 mg/dL)
[2018-04-26 05:10] VITALS: BP 149/76
[2018-04-26 05:10] LABS: BACTERIA,URINE FEW /HPF (0-FEW); SQUAMOUS EPITHELIAL CELL,UR FEW /LPF
--- NOTE | 2018-04-26 05:31 | PHYS DOC ---
Past Medical History Past Medical History: Asthma, COPD, Diabetes-Type II, Hypertension Additional Past Medical Histor: appy, rubén, hysterectomy Past Surgical History: Cholecystectomy, Hysterectomy, Other Additional Past Surgical Histo: bilateral cataract, bilater shoulder, hernia x7 Alcohol Use: None Drug Use: None Adult General Chief Complaint Chief Complaint: MECHANICAL FALL HPI HPI Patient is a 67 year old female who presents with mechanical fall. She says that she tripped on her own feet. She says she landed on her left shoulder and in addition her back is hurting a lot more than normal she has chronic back pain though. She does not report any fever she has had URI symptoms with a cough recently her daughters in the emergency room with some URI symptoms as well. Denies dysuria she does have urinary frequency which is typical for her as well. She does not have anything in home for pain she does have Flexeril however. Review of Systems Review of Systems Constitutional: Denies fever or chills [] Respiratory: Denies shortness of breath [] Cardiovascular: No additional information not addressed in HPI [] Musculoskeletal: Integument: Denies rash or skin lesions [] Neurologic: Denies headache, focal weakness or sensory changes [] Endocrine: Denies polyuria or polydipsia [] All other systems were reviewed and found to be within normal limits, except as documented in this note. Current Medications Current Medications Current Medications Medications (Trade) Dose Ordered Sig/[facility] Start Time Stop Time Status Last Admin Dose Admin Acetaminophen/ Hydrocodone Bitart (Lortab 5/325) 2 tab 1X ONCE 04/26/18 03:30 04/26/18 03:31 DC 04/26/18 03:30 2 TAB Allergies Allergies Allergies Coded Allergies Type Severity Reaction Last Updated Verified Penicillins Allergy Severe itching, dry mouth, tongue swells 01/24/18 Yes Sulfa (Sulfonamide Antibiotics) Allergy Intermediate ITCHING DRY MOUTH, hives/ swelling 12/16/15 Yes fentanyl Allergy Intermediate 12/16/15 Yes hydromorphone HCl Allergy Intermediate MORPHINE OK 12/16/15 Yes methylprednisolone Allergy Intermediate RED MAN SYNDROME 10/11/16 Yes prednisone Allergy Intermediate RED MED SYNDROME 10/11/16 Yes gluten Allergy Mild bloating 04/18/17 Yes I S O L A T I O N *CONTACT* Allergy Unknown 02/04/17 Yes oxycodone HCl Adverse Reaction Intermediate "i FEEL LIKE I HAVE WORMS IN ME" Yes Physical Exam Physical Exam Constitutional: Well developed, well nourished, no acute distress, non-toxic appearance. [] HENT: Normocephalic, atraumatic, bilateral external ears normal, oropharynx moist, no oral exudates, nose normal. [] Eyes: PERRLA, EOMI, conjunctiva normal, no discharge. [] Neck: Normal range of motion, no tenderness, supple, no stridor. [] Cardiovascular:Heart rate regular rhythm, no murmur [] Lungs & Thorax: Bilateral breath sounds clear to auscultation [] Abdomen: Bowel sounds normal, soft, no tenderness, no masses, no pulsatile masses. [] Skin: Warm, dry, no erythema, no rash. [] Back: Diffuse midline and paraspinous tenderness bilaterally Extremities: Mild tenderness and reduced range of motion of the left shoulder the remainder of the joints are okay. Neurologic: Alert and oriented X 3, normal motor function, normal sensory function, no focal deficits noted. [] Psychologic: Affect normal, judgement normal, mood normal. [] Current Patient Data Vital Signs Vital Signs Date Time Temp Pulse Resp B/P (MAP) Pulse Ox O2 Delivery O2 Flow Rate FiO2 04/26/18 03:30 Room Air 04/26/18 02:50 100.2 117 20 178/91 (120) 97 100.2 Lab Values Laboratory Tests Test 04/26/18 04:00 Urine Collection Type Unknown Urine Color Yellow Urine Clarity Clear Urine pH 6.5 Urine Specific [place] 1.020 Urine Protein Negative mg/dL (NEG-TRACE) Urine Glucose (UA) >=1000 mg/dL (NEG) Urine Ketones (Stick) Negative mg/dL (NEG) Urine Blood Negative (NEG) Urine Nitrite Negative (NEG) Urine Bilirubin Negative (NEG) Urine Urobilinogen Dipstick 0.2 mg/dL (0.2 mg/dL) Urine Leukocyte Esterase Negative (NEG) Urine RBC 1-2 /HPF (0-2) Urine WBC 1-4 /HPF (0-4) Urine Squamous Epithelial Cells Few /LPF Urine Bacteria Few /HPF (0-FEW) EKG EKG [] Radiology/Procedures Radiology/Procedures [] Course & Med Decision Making Course & Med Decision Making Pertinent Labs and Imaging studies reviewed. (See chart for details) []My my interpretation of imaging was no pneumonia no lumbar spine fracture hardware on the left shoulder looks okay. 67 year old female frequent ER user with chronic pain chronic back pain presenting after mechanical fall. She says she tripped over her own feet. Imaging has been negative we did give her oral pain medication in the department. I did check K tracks And it looks like she has 8 narcotic prescriptions since August 19 so I did tell her this and I advised her that we would not be giving any more she was okay with this as well. Noted the temperature 100.2 heart rate a repeat was in the 102-104 range according to the nurse. We did a basic infectious workup with chest x-ray and urinalysis she has had URI symptoms those findings were negative for bacterial etiology daughter also has URI symptoms that is likely the etiology. Dragon Disclaimer Dragon Disclaimer This electronic medical record was generated, in whole or in part, using a voice recognition dictation system. Departure Departure Impression: Primary Impression: Back pain Disposition: HOME, SELF-CARE Condition: IMPROVED Referrals: Meagan ALVAREZ MD (PCP) Patient Instructions: Back Pain, Adult ZEN CHRISTENSEN MD Apr 26, 2018 05:31
--- NOTE | 2018-04-26 10:30 | RAD ---
EXAM: PORTABLE CHEST 1V AP View of the chest DATE: 04/26/2018 3:47 AM INDICATION: Fall COMPARISON: 02/08/2018, 11/30/2017 FINDINGS: The heart is not enlarged. Mediastinal and hilar contours are normal. Atherosclerotic calcifications of the aorta are seen. No focal parenchymal airspace opacity. Chest granuloma projects over the left midlung No pleural effusion or pneumothorax. IMPRESSION: 1. No radiographic evidence for acute cardiopulmonary process. Electronically signed by: Subhash Del Valle MD (04/26/2018 10:27 AM) [facility]
--- NOTE | 2018-04-26 10:33 | RAD ---
EXAM: AP, lateral and LS spot views of the lumbar spine DATE: 04/26/2018 3:52 AM INDICATION: Low back pain, fall COMPARISON: 10/30/2017 FINDINGS: There are 5 nonrib-bearing lumbar-type vertebral bodies. Moderate L4-5 and L1-2 and mild L3-4 and L5-S1 intervertebral disc height loss. Transitional osteophytes are seen. Moderate facet degenerative change L4-5 and below. Vertebral body heights are preserved. No evidence of acute fracture. Cholecystectomy clips are seen. IMPRESSION: No evidence for acute fracture or subluxation. Electronically signed by: Subhash Del Valle MD (04/26/2018 10:30 AM) [facility]
--- NOTE | 2018-04-26 10:36 | RAD ---
EXAM: 3 views left shoulder DATE: 04/26/2018 3:48 AM INDICATION: Fall, left shoulder pain COMPARISON: None FINDINGS/ IMPRESSION: Changes of left shoulder arthroplasty are seen. No definite hardware complication. Accounting for suboptimal projection, alignment is good. Humeral head is high riding suggesting rotator cuff tear. No evidence for acute fracture. AC joint degenerative changes are seen. Electronically signed by: Subhash Del Valle MD (04/26/2018 10:33 AM) [facility]
== END 2018-04-26 05:59 | disposition home or self-care (01) ==
LOC: ER 01:59
DX: G89.29 Other chronic pain (principal); M54.89 Other dorsalgia; G89.11 Acute pain due to trauma; M25.512 Pain in left shoulder; I10 Essential (primary) hypertension; E11.9 Type 2 diabetes mellitus without complications; J44.9 Chronic obstructive pulmonary disease, unspecified; Z88.0 Allergy status to penicillin; Z88.2 Allergy status to sulfonamides; Z88.4 Allergy status to anesthetic agent; Z88.5 Allergy status to narcotic agent; Z88.8 Allergy status to other drugs, medicaments and biological substances; Z91.041 Radiographic dye allergy status; W01.0XXA Fall on same level from slipping, tripping and stumbling without subsequent striking against object, initial encounter; Y93.89 Activity, other specified; Y92.89 Other specified places as the place of occurrence of the external cause; Y99.8 Other external cause status
CPT/HCPCS: 71045; 72100; 73030; 81001; 99285-25

== ENCOUNTER 2018-05-04 21:29 | Emergency (ER) | payer BC, OTHER ==
[~2018-05-04] VITALS: Ht 165.1 cm; Wt 122.5 kg
--- NOTE | 2018-05-05 01:17 | PHYS DOC ---
Past Medical History Past Medical History: Asthma, COPD, Diabetes-Type II, Hypertension Additional Past Medical Histor: appy, rubén, hysterectomy Past Surgical History: Cholecystectomy, Hysterectomy, Other Additional Past Surgical Histo: bilateral cataract, bilater shoulder, hernia x7 Alcohol Use: None Drug Use: None Adult General Chief Complaint Chief Complaint: ABDOMINAL PAIN HPI HPI Patient is a 67 year old female who presents with abdominal pain. Patient reports that the pain started at approximately noon on Saturday. Notes abdominal pain constant progressive with a sharp quality. Patient denies aggravating or alleviating factors. Said she took some Tylenol with no relief of pain patient notes pain is located in the right upper right lower and left lower quadrants. Patient notes associated nausea. Patient notes she has had 7 hernia surgeries with resulting chronic abdominal pain and notes that this feels similar to that. Patient denies vomiting, diarrhea, constipation, dysuria, urinary frequency, shortness of breath, chest pain, headache. She notes that she has an ointment upcoming with her PCP this regarding her chronic abdominal pain. Patient notes she ran out of her hydrocodone she takes for her abdominal pain one month ago. Review of Systems Review of Systems Constitutional: Denies fever or chills [] Eyes: Denies change in visual acuity, redness, or eye pain [] HENT: Denies nasal congestion or sore throat [] Respiratory: Denies cough or shortness of breath [] Cardiovascular: Denies chest pain or palpitations[] GI: Notes abdominal pain, nausea. Denies vomiting, bloody stools or diarrhea [] : Denies dysuria or hematuria [] Musculoskeletal: Denies back pain or joint pain [] Integument: Denies rash or skin lesions [] Neurologic: Denies headache, focal weakness or sensory changes [] Complete systems were reviewed and found to be within normal limits, except as documented in this note. Current Medications Current Medications Current Medications Medications (Trade) Dose Ordered Sig/Irish Start Time Stop Time Status Last Admin Dose Admin Morphine Sulfate (Morphine Sulfate) 4 mg 1X ONCE 05/05/18 01:30 05/05/18 01:31 DC 05/05/18 01:34 4 MG Ondansetron HCl (Zofran) 4 mg 1X ONCE 05/05/18 03:00 05/05/18 03:00 DC Sodium Chloride 1,000 ml @ 1,000 mls/hr 1X ONCE 05/05/18 01:30 05/05/18 02:29 DC 05/05/18 01:36 1,000 MLS/HR Allergies Allergies Allergies Coded Allergies Type Severity Reaction Last Updated Verified Penicillins Allergy Severe itching, dry mouth, tongue swells 01/24/18 Yes Sulfa (Sulfonamide Antibiotics) Allergy Intermediate ITCHING DRY MOUTH, hives/ swelling 12/16/15 Yes fentanyl Allergy Intermediate 12/16/15 Yes hydromorphone HCl Allergy Intermediate MORPHINE OK 12/16/15 Yes methylprednisolone Allergy Intermediate RED MAN SYNDROME 10/11/16 Yes prednisone Allergy Intermediate RED MED SYNDROME 10/11/16 Yes gluten Allergy Mild bloating 04/18/17 Yes I S O L A T I O N *CONTACT* Allergy Unknown 02/04/17 Yes oxycodone HCl Adverse Reaction Intermediate "i FEEL LIKE I HAVE WORMS IN ME" Yes Physical Exam Physical Exam Constitutional: Well developed, well nourished, no acute distress, non-toxic appearance. [] HENT: Normocephalic, atraumatic, oropharynx moist, no oral exudates, nose normal. [] Eyes: PERRL, EOMI, conjunctiva normal, no discharge. [] Neck: Normal range of motion, no tenderness, supple, no meningismus. [] Cardiovascular:Heart rate regular rhythm, no murmur [] Lungs & Thorax: Bilateral breath sounds clear to auscultation [] Abdomen: Bowel sounds normal, soft, tenderness in the right upper right lower and left lower quadrants, no pulsatile masses. [] Skin: Warm, dry, no erythema, no rash. Multiple healed surgical incision sites on abdomen. [] Back: No tenderness, no CVA tenderness. [] Extremities: No tenderness, ROM intact, no edema. [] Neurologic: Alert and oriented X 3, normal motor function, normal sensory function, no focal deficits noted. [] Psychologic: Affect normal, judgement normal, mood normal. [] Current Patient Data Vital Signs Vital Signs Date Time Temp Pulse Resp B/P (MAP) Pulse Ox O2 Delivery O2 Flow Rate FiO2 05/05/18 02:30 98.6 86 18 165/87 (113) 96 Room Air 98.6 Lab Values Laboratory Tests Test 05/05/18 00:01 05/05/18 01:00 Urine Collection Type Unknown Urine Color Yellow Urine Clarity Clear Urine pH 6.5 Urine Specific [place] 1.015 Urine Protein Negative mg/dL (NEG-TRACE) Urine Glucose (UA) 100 mg/dL (NEG) Urine Ketones (Stick) Negative mg/dL (NEG) Urine Blood Negative (NEG) Urine Nitrite Negative (NEG) Urine Bilirubin Negative (NEG) Urine Urobilinogen Dipstick 0.2 mg/dL (0.2 mg/dL) Urine Leukocyte Esterase Negative (NEG) Urine RBC 0 /HPF (0-2) Urine WBC Occ /HPF (0-4) Urine Squamous Epithelial Cells Few /LPF Urine Bacteria 0 /HPF (0-FEW) Urine Mucus Slight /LPF White Blood Count 9.7 x10^3/uL (4.0-11.0) Red Blood Count 4.52 x10^6/uL (3.50-5.40) Hemoglobin 13.2 g/dL (12.0-15.5) Hematocrit 38.7 % (36.0-47.0) Mean Corpuscular Volume 86 fL (79-100) Mean Corpuscular Hemoglobin 29 pg (25-35) Mean Corpuscular Hemoglobin Concent 34 g/dL (31-37) Red Cell Distribution Width 14.7 % (11.5-14.5) H Platelet Count 306 x10^3/uL (140-400) Neutrophils (%) (Auto) 51 % (31-73) Lymphocytes (%) (Auto) 39 % (24-48) Monocytes (%) (Auto) 6 % (0-9) Eosinophils (%) (Auto) 2 % (0-3) Basophils (%) (Auto) 1 % (0-3) Neutrophils # (Auto) 5.0 x10^3uL (1.8-7.7) Lymphocytes # (Auto) 3.8 x10^3/uL (1.0-4.8) Monocytes # (Auto) 0.6 x10^3/uL (0.0-1.1) Eosinophils # (Auto) 0.2 x10^3/uL (0.0-0.7) Basophils # (Auto) 0.1 x10^3/uL (0.0-0.2) Sodium Level 136 mmol/L (136-145) Potassium Level 4.1 mmol/L (3.5-5.1) Chloride Level 98 mmol/L (98-107) Carbon Dioxide Level 27 mmol/L (21-32) Anion Gap 11 (6-14) Blood Urea Nitrogen 17 mg/dL (7-20) Creatinine 0.8 mg/dL (0.6-1.0) Estimated GFR (Cockcroft-Gault) 71.8 BUN/Creatinine Ratio 21 (6-20) H Glucose Level 231 mg/dL (70-99) H Calcium Level 8.9 mg/dL (8.5-10.1) Magnesium Level 1.6 mg/dL (1.8-2.4) L Total Bilirubin 0.1 mg/dL (0.2-1.0) L Aspartate Amino Transferase (AST) 26 U/L (15-37) Alanine Aminotransferase (ALT) 26 U/L (14-59) Alkaline Phosphatase 134 U/L (46-116) H Total Protein 6.8 g/dL (6.4-8.2) Albumin 3.0 g/dL (3.4-5.0) L Albumin/Globulin Ratio 0.8 (1.0-1.7) L Lipase 192 U/L (73-393) Laboratory Tests 05/05/18 01:00 Laboratory Tests 05/05/18 01:00 EKG EKG [] Radiology/Procedures Radiology/Procedures [] Course & Med Decision Making Course & Med Decision Making 67-year-old female presents for recurrence of her chronic abdominal pain. Patient notes that she has had 7 hernia surgeries and chronic pain associated with these procedures. Patient notes this pain feels the same as she has had in the past. Did to forego CT abdomen and pelvis due to multiple recent scans and risk outweigh benefit. Utilize shared decision-making with the patient in this decision. Labs collected and reviewed and are unremarkable and unchanged from recent testing. Patient given 4 mg morphine which decreased her abdominal pain. Patient also given normal saline bolus and Zofran. Patient given prescription for six 12/19/24 hydrocodone tablets.Patient stable for discharge with outpatient follow-up with PCP this coming . Discussed findings and plan with patient and family, who acknowledge understanding and agreement. [] Dragon Disclaimer Dragon Disclaimer This electronic medical record was generated, in whole or in part, using a voice recognition dictation system. Departure Departure Impression: Primary Impression: Chronic abdominal pain Disposition: HOME, SELF-CARE Condition: STABLE Referrals: Meagan ALVAREZ MD (PCP) Patient Instructions: Abdominal Pain (Nonspecific) Scripts Famotidine (PEPCID) 20 Mg Tablet 20 MG PO BID, #20 TAB Prov: CHRISTI VILLAGRAN DO 05/05/18 Hyoscyamine Sulfate (LEVSIN-SL) 0.125 Mg Tab.subl 1-2 TAB SL PRN Q4HRS PRN for PAIN, #20 TAB 0 Refills Prov: CHRISTI VILLAGRAN DO 05/05/18 Ondansetron (ZOFRAN ODT) 4 Mg Tab.rapdis 1 TAB SL Q8HRS PRN for NAUSEA/VOMITING, #15 TAB Prov: CHRISTI VILLAGRAN DO 05/05/18 Hydrocodone/Apap 5-325 (NORCO 5-325 TABLET) 1 Each Tablet 1 TAB PO PRN Q6HRS PRN for PAIN, #6 TAB 0 Refills Prov: CHRISTI VILLAGRAN DO 05/05/18 CHRISTI VILLAGRAN DO May 05, 2018 01:17
[2018-05-05 01:26] LABS: BILIRUBIN,URINE NEGATIVE (NEG); CLARITY,URINE CLEAR; COLOR,URINE YELLOW; NITRITE,URINE NEGATIVE (NEG); PH,URINE 6.5; PROTEIN,URINE NEGATIVE (NEG-TRACE); UROBILINOGEN,URINE 0.2 mg/dL (0.2 mg/dL)
[2018-05-05 01:27] LABS: BASO # 0.1 x10^3/uL (0.0-0.2); BASO % 1 % (0-3); EOS # 0.2 x10^3/uL (0.0-0.7); EOS % 2 % (0-3); HEMATOCRIT 38.7 % (36.0-47.0); HEMOGLOBIN 13.2 g/dL (12.0-15.5); LYMPH # 3.8 x10^3/uL (1.0-4.8); LYMPH % 39 % (24-48); MEAN CORPUSCULAR HEMOGLOBIN 29 pg (25-35); MEAN CORPUSCULAR HGB CONC 34 g/dL (31-37); MEAN CORPUSCULAR VOLUME 86 fL (79-100); MONO # 0.6 x10^3/uL (0.0-1.1); MONO % 6 % (0-9); NEUT % 51 % (31-73); PLATELET COUNT 306 x10^3/uL (140-400); RED BLOOD COUNT 4.52 x10^6/uL (3.50-5.40); RED CELL DISTRIBUTION WIDTH 14.7 % (11.5-14.5); WHITE BLOOD COUNT 9.7 x10^3/uL (4.0-11.0)
[2018-05-05] MEDS ORDERED: MORPHINE SULFATE 4 MG/ML VIAL. IV ONE (01:30)
[2018-05-05] MEDS ORDERED: IV NORMAL SALINE 1000ML BAG 1,000 ML IV ONE (01:30)
[2018-05-05 01:34] LABS: CALCIUM 8.9 mg/dL (8.5-10.1); CREATININE 0.8 mg/dL (0.6-1.0); GFR 71.8; POTASSIUM 4.1 mmol/L (3.5-5.1)
[2018-05-05 01:39] LABS: ALBUMIN/GLOBULIN RATIO 0.8 (1.0-1.7); MAGNESIUM 1.6 mg/dL (1.8-2.4); TOTAL BILIRUBIN 0.1 mg/dL (0.2-1.0); TOTAL PROTEIN 6.8 g/dL (6.4-8.2)
[2018-05-05 02:04] LABS: BACTERIA,URINE 0 /HPF (0-FEW); RBC,URINE 0 /HPF (0-2); SQUAMOUS EPITHELIAL CELL,UR FEW /LPF; WBC,URINE OCC /HPF (0-4)
[2018-05-05] MEDS ORDERED: HYOS0.1265 SL (02:27)
[2018-05-05] MEDS ORDERED: FAMO-63 PO (02:27)
[2018-05-05] MEDS ORDERED: HYDR-971 PO (02:27)
[2018-05-05] MEDS ORDERED: ONDA4TAB10 SL (02:27)
[2018-05-05 02:30] VITALS: BP 165/87
[2018-05-05] MEDS ORDERED: ONDANSETRON PF 4 MG/2 ML VIAL. IV ONE (03:00)
== END 2018-05-05 02:53 | disposition home or self-care (01) ==
LOC: ER 21:29
DX: G89.29 Other chronic pain (principal); R10.11 Right upper quadrant pain; R10.12 Left upper quadrant pain; R10.32 Left lower quadrant pain; J44.9 Chronic obstructive pulmonary disease, unspecified; E11.9 Type 2 diabetes mellitus without complications; I10 Essential (primary) hypertension; Z90.89 Acquired absence of other organs; Z90.49 Acquired absence of other specified parts of digestive tract; Z90.710 Acquired absence of both cervix and uterus; Z88.0 Allergy status to penicillin; Z88.2 Allergy status to sulfonamides; Z88.5 Allergy status to narcotic agent; Z91.041 Radiographic dye allergy status; Z88.8 Allergy status to other drugs, medicaments and biological substances
CPT/HCPCS: 36415; 80053; 81001; 83690; 83735; 85025; 96374; 99284; J2270; J7030

== ENCOUNTER 2018-06-21 22:10 | Emergency (ER) | payer BC, OTHER ==
[~2018-06-21] VITALS: Ht 162.6 cm; Wt 124.1 kg
[~2018-06-21 22:10] MED LIST changes: +FAMO-63 PO; +HYOS0.1265 SL; +ONDA4TAB10 SL
[2018-06-21] MEDS ORDERED: PROCHLORPERAZINE 10 MG/2 ML VIAL. IV ONE (23:15)
[2018-06-21] MEDS ORDERED: PROCHLORPERAZINE 10 MG/2 ML VIAL. IM ONE (23:45)
[2018-06-21] MEDS ORDERED: MORPHINE SULFATE 4 MG/ML VIAL. IM ONE (23:45)
[2018-06-22 00:32] LABS: PROTHROMBIN TIME PATIENT 29.7 SEC (11.7-14.0)
[2018-06-22 01:00] VITALS: BP 156/77
--- NOTE | 2018-06-22 01:26 | PHYS DOC ---
Past Medical History Past Medical History: Diabetes-Type II, DVT, Hypertension, Migraines, Other Additional Past Medical Histor: asthma PE Past Surgical History: Appendectomy, Cholecystectomy, Hysterectomy, Other Additional Past Surgical Histo: bilateral cataract, bilater shoulder, hernia x7 Alcohol Use: None Drug Use: None Adult General Chief Complaint Chief Complaint: HEADACHE HPI HPI Patient is a 68 year old presenting with headache similar to usual migraines throbbing has been there for 2 days she has tried her home medications without any relief. She says this is identical to her usual pattern of migraines gradual in onset positive nausea no fever or photophobia is noted similar location and pattern of pain she just can't get it to break at home. She says that morphine usually helps. Of note she is here frequently for various different pain complaints. Review of Systems Review of Systems Constitutional: Denies fever or chills [] Eyes: HENT: Denies nasal congestion or sore throat [] Respiratory: Denies cough or shortness of breath [] Cardiovascular: No additional information not addressed in HPI [] GI: Denies abdominal pain, Musculoskeletal: Denies back pain or joint pain [] Integument: Denies rash or skin lesions [] Neurologic Endocrine: Denies polyuria or polydipsia [] All other systems were reviewed and found to be within normal limits, except as documented in this note. Current Medications Current Medications Current Medications Medications (Trade) Dose Ordered Sig/Irish Start Time Stop Time Status Last Admin Dose Admin Morphine Sulfate (Morphine Sulfate) 4 mg 1X ONCE 06/21/18 23:45 06/21/18 23:46 DC 06/21/18 23:45 4 MG Prochlorperazine Edisylate (Compazine) 10 mg 1X ONCE 06/21/18 23:45 06/21/18 23:46 DC 06/21/18 23:45 10 MG Allergies Allergies Allergies Coded Allergies Type Severity Reaction Last Updated Verified Penicillins Allergy Severe itching, dry mouth, tongue swells 01/24/18 Yes Sulfa (Sulfonamide Antibiotics) Allergy Intermediate ITCHING DRY MOUTH, hives/ swelling 12/16/15 Yes fentanyl Allergy Intermediate 12/16/15 Yes hydromorphone HCl Allergy Intermediate MORPHINE OK 12/16/15 Yes methylprednisolone Allergy Intermediate RED MAN SYNDROME 10/11/16 Yes prednisone Allergy Intermediate RED MED SYNDROME 10/11/16 Yes gluten Allergy Mild bloating 04/18/17 Yes I S O L A T I O N *CONTACT* Allergy Unknown 02/04/17 Yes oxycodone HCl Adverse Reaction Intermediate "i FEEL LIKE I HAVE WORMS IN ME" Yes Physical Exam Physical Exam Constitutional: Well developed, well nourished, no acute distress, non-toxic appearance. [] HENT: Normocephalic, atraumatic, bilateral external ears normal, oropharynx moist, no oral exudates, nose normal. [] Eyes: PERRLA, EOMI, conjunctiva normal, no discharge. [] Neck: Normal range of motion, no tenderness, supple, no stridor. [] Cardiovascular:Heart rate regular rhythm, no murmur [] Lungs & Thorax: Bilateral breath sounds clear to auscultation [] Abdomen: Bowel sounds normal, soft, no tenderness, no masses, no pulsatile masses. [] Skin: Warm, dry, no erythema, no rash. [] Back: No tenderness, no CVA tenderness. [] Extremities: No tenderness, no cyanosis, no clubbing, ROM intact, no edema. [] Neurologic: Alert and oriented X 3, normal motor function, normal sensory function, no focal deficits noted. [] Psychologic: Affect normal, judgement normal, mood normal. [] Current Patient Data Vital Signs Vital Signs Date Time Temp Pulse Resp B/P (MAP) Pulse Ox O2 Delivery O2 Flow Rate FiO2 06/22/18 01:00 100 16 100 06/21/18 23:36 98.3 98.3 06/21/18 22:34 166/81 (109) Room Air Lab Values Laboratory Tests Test 06/22/18 00:01 Prothrombin Time 29.7 SEC (11.7-14.0) H Prothrombin Time INR 2.9 (0.8-1.1) H EKG EKG [] Radiology/Procedures Radiology/Procedures [] Course & Med Decision Making Course & Med Decision Making Pertinent Labs and Imaging studies reviewed. (See chart for details) []Patient denied any trauma. This is usual pattern of migraine. She improved in the ER with the above treatment. 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 Departure Departure Impression: Primary Impression: Migraine Disposition: 01 HOME, SELF-CARE Condition: STABLE Patient Instructions: Migraine Headache, [id number] ZEN CHRISTENSEN MD Jun 22, 2018 01:26
== END 2018-06-22 01:06 | disposition home or self-care (01) ==
LOC: ER 22:10
DX: G43.909 Migraine, unspecified, not intractable, without status migrainosus (principal); I10 Essential (primary) hypertension; E11.9 Type 2 diabetes mellitus without complications; J45.909 Unspecified asthma, uncomplicated; Z86.718 Personal history of other venous thrombosis and embolism; Z88.0 Allergy status to penicillin; Z88.2 Allergy status to sulfonamides; Z88.4 Allergy status to anesthetic agent; Z88.5 Allergy status to narcotic agent; Z91.041 Radiographic dye allergy status; Z88.8 Allergy status to other drugs, medicaments and biological substances
CPT/HCPCS: 36415; 85610; 96372; 99284; J0780; J2270

== ENCOUNTER 2018-06-24 17:41 | Emergency (ER) | payer BC, OTHER ==
[~2018-06-24] VITALS: Ht 165.1 cm; Wt 124.7 kg
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
[2018-06-24] MEDS ORDERED: ORPHENADRINE CITRATE 60 MG/2 ML VIAL. IM ONE (18:30)
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
[2018-06-24 19:47] VITALS: BP 151/65
[2018-06-24] MEDS ORDERED: ORPH100T PO (19:58)
== END 2018-06-24 20:18 | disposition home or self-care (01) ==
LOC: ER 17:41
DX: S39.012A Strain of muscle, fascia and tendon of lower back, initial encounter (principal); S20.219A Contusion of unspecified front wall of thorax, initial encounter; J45.909 Unspecified asthma, uncomplicated; E11.9 Type 2 diabetes mellitus without complications; I10 Essential (primary) hypertension; G43.909 Migraine, unspecified, not intractable, without status migrainosus; Z86.718 Personal history of other venous thrombosis and embolism; Z86.711 Personal history of pulmonary embolism; Z90.89 Acquired absence of other organs; Z90.49 Acquired absence of other specified parts of digestive tract; Z90.710 Acquired absence of both cervix and uterus; Z98.890 Other specified postprocedural states; Z88.0 Allergy status to penicillin; Z88.2 Allergy status to sulfonamides; Z88.4 Allergy status to anesthetic agent; Z91.041 Radiographic dye allergy status; Z88.5 Allergy status to narcotic agent; Z88.8 Allergy status to other drugs, medicaments and biological substances; V49.59XA Passenger injured in collision with other motor vehicles in traffic accident, initial encounter; Y93.89 Activity, other specified; Y92.488 Other paved roadways as the place of occurrence of the external cause; Y99.8 Other external cause status
CPT/HCPCS: 71046; 72100; 96372; 99284; J2360

== ENCOUNTER 2018-07-01 20:16 | Emergency (ER) | payer BC, OTHER ==
[~2018-07-01] VITALS: Ht 165.1 cm; Wt 124.7 kg
[~2018-07-01 20:16] MED LIST changes: +ORPH100T PO
[2018-07-01] MEDS ORDERED: CONTRAST GIVEN. MC PRN (21:00)
[2018-07-01 21:19] LABS: BILIRUBIN,URINE NEGATIVE (NEG); CLARITY,URINE CLEAR; COLOR,URINE YELLOW; NITRITE,URINE NEGATIVE (NEG); PROTEIN,URINE NEGATIVE (NEG-TRACE); UROBILINOGEN,URINE 0.2 mg/dL (0.2 mg/dL)
[2018-07-01 21:25] LABS: BASO # 0.1 x10^3/uL (0.0-0.2); BASO % 1 % (0-3); EOS # 0.2 x10^3/uL (0.0-0.7); EOS % 2 % (0-3); HEMATOCRIT 39.7 % (36.0-47.0); HEMOGLOBIN 13.7 g/dL (12.0-15.5); LYMPH # 4.1 x10^3/uL (1.0-4.8); LYMPH % 41 % (24-48); MEAN CORPUSCULAR HEMOGLOBIN 29 pg (25-35); MEAN CORPUSCULAR HGB CONC 35 g/dL (31-37); MEAN CORPUSCULAR VOLUME 84 fL (79-100); MONO # 0.5 x10^3/uL (0.0-1.1); MONO % 5 % (0-9); NEUT # 5.2 x10^3uL (1.8-7.7); NEUT % 51 % (31-73); PLATELET COUNT 336 x10^3/uL (140-400); RED BLOOD COUNT 4.74 x10^6/uL (3.50-5.40); RED CELL DISTRIBUTION WIDTH 14.5 % (11.5-14.5); WHITE BLOOD COUNT 10.2 x10^3/uL (4.0-11.0)
[2018-07-01 21:26] LABS: BACTERIA,URINE FEW /HPF (0-FEW); RBC,URINE OCC /HPF (0-2); SQUAMOUS EPITHELIAL CELL,UR FEW /LPF; WBC,URINE OCC /HPF (0-4)
[2018-07-01] MEDS ORDERED: MORPHINE SULFATE 4 MG/ML VIAL. IV ONE ×2 (21:30→23:30)
[2018-07-01] MEDS ORDERED: IOHEXOL 300 MG/ML 100ML VIAL. IV ONE (21:30)
[2018-07-01 21:32] LABS: CALCIUM 9.1 mg/dL (8.5-10.1); CREATININE 1.1 mg/dL (0.6-1.0); GFR 49.5; POTASSIUM 3.6 mmol/L (3.5-5.1)
[2018-07-01 21:38] LABS: ALBUMIN/GLOBULIN RATIO 0.7 (1.0-1.7); TOTAL BILIRUBIN 0.2 mg/dL (0.2-1.0); TOTAL PROTEIN 7.1 g/dL (6.4-8.2)
--- NOTE | 2018-07-01 21:44 | PHYS DOC ---
Past Medical History Past Medical History: Asthma, Diabetes-Type II, DVT, Hypertension, Migraines, Other Additional Past Medical Histor: asthma PE Past Surgical History: Appendectomy, Cholecystectomy, Hysterectomy, Other Additional Past Surgical Histo: bilateral cataract, bilater shoulder, hernia x7 ; colon; Alcohol Use: None Drug Use: None Adult General Chief Complaint Chief Complaint: ABDOMINAL PAIN HPI HPI Patient is a 68 year old female with history of multiple abdominal surgeries, and wall hernia chronic abdominal pain who presents with acute worsening of lower abdominal pain. Patient states pain is sharp and feels as though something is trying to crawl outside of her. It is rated moderate to severe is nonradiating. Associated with nausea and loose stools. No vomiting. No flank pain. No fever chills or sweats. Patient took hydrocodone earlier today without relief. No other acute symptoms or complaints. [] Review of Systems Review of Systems ROS as per HPI All other systems were reviewed and found to be within normal limits, except as documented in this note. Current Medications Current Medications Current Medications Medications (Trade) Dose Ordered Sig/Irish Start Time Stop Time Status Last Admin Dose Admin Info (CONTRAST GIVEN -- Rx MONITORING) 1 each PRN DAILY PRN 07/01/18 21:00 07/03/18 20:59 Iohexol (Omnipaque 300 Mg/ml) 75 ml 1X ONCE 07/01/18 21:30 07/01/18 21:31 DC Morphine Sulfate (Morphine Sulfate) 4 mg 1X ONCE 07/01/18 21:30 07/01/18 21:31 DC 07/01/18 21:23 4 MG Allergies Allergies Allergies Coded Allergies Type Severity Reaction Last Updated Verified Penicillins Allergy Severe itching, dry mouth, tongue swells 01/24/18 Yes Sulfa (Sulfonamide Antibiotics) Allergy Intermediate ITCHING DRY MOUTH, hives/ swelling 12/16/15 Yes fentanyl Allergy Intermediate 12/16/15 Yes hydromorphone HCl Allergy Intermediate MORPHINE OK 12/16/15 Yes methylprednisolone Allergy Intermediate RED MAN SYNDROME 10/11/16 Yes prednisone Allergy Intermediate RED MED SYNDROME 10/11/16 Yes gluten Allergy Mild bloating 04/18/17 Yes I S O L A T I O N *CONTACT* Allergy Unknown 02/04/17 Yes oxycodone HCl Adverse Reaction Intermediate "i FEEL LIKE I HAVE WORMS IN ME" Yes Physical Exam Physical Exam Constitutional: Well developed, well nourished, no acute distress, non-toxic appearance. [] HENT: Normocephalic, atraumatic, bilateral external ears normal, oropharynx moist, nose normal. [] Eyes: PERRL. [] Neck: Normal range of motion, no tenderness. [] Cardiovascular:Heart rate regular.[] Lungs & Thorax: Bilateral breath sounds clear to auscultation [] Abdomen: Bowel sounds normal, soft, diffused lower abdominal pain, tenderness and palpable ventral wall hernia. [] Skin: Warm, dry. [] Back: No tenderness. [] Extremities: No tenderness. [] Neurologic: Alert and oriented X 3, normal motor function, normal sensory function, no focal deficits noted. [] Psychologic: Affect normal, judgement normal, mood normal. [] Current Patient Data Vital Signs Vital Signs Date Time Temp Pulse Resp B/P (MAP) Pulse Ox O2 Delivery O2 Flow Rate FiO2 07/01/18 21:23 20 98 Room Air 07/01/18 20:25 98.2 89 175/78 (110) 98.2 Lab Values Laboratory Tests Test 07/01/18 21:04 07/01/18 21:14 Urine Collection Type Unknown Urine Color Yellow Urine Clarity Clear Urine pH 7.0 Urine Specific Welches <=1.005 Urine Protein Negative mg/dL (NEG-TRACE) Urine Glucose (UA) Negative mg/dL (NEG) Urine Ketones (Stick) Negative mg/dL (NEG) Urine Blood Negative (NEG) Urine Nitrite Negative (NEG) Urine Bilirubin Negative (NEG) Urine Urobilinogen Dipstick 0.2 mg/dL (0.2 mg/dL) Urine Leukocyte Esterase Negative (NEG) Urine RBC Occ /HPF (0-2) Urine WBC Occ /HPF (0-4) Urine Squamous Epithelial Cells Few /LPF Urine Bacteria Few /HPF (0-FEW) White Blood Count 10.2 x10^3/uL (4.0-11.0) Red Blood Count 4.74 x10^6/uL (3.50-5.40) Hemoglobin 13.7 g/dL (12.0-15.5) Hematocrit 39.7 % (36.0-47.0) Mean Corpuscular Volume 84 fL (79-100) Mean Corpuscular Hemoglobin 29 pg (25-35) Mean Corpuscular Hemoglobin Concent 35 g/dL (31-37) Red Cell Distribution Width 14.5 % (11.5-14.5) Platelet Count 336 x10^3/uL (140-400) Neutrophils (%) (Auto) 51 % (31-73) Lymphocytes (%) (Auto) 41 % (24-48) Monocytes (%) (Auto) 5 % (0-9) Eosinophils (%) (Auto) 2 % (0-3) Basophils (%) (Auto) 1 % (0-3) Neutrophils # (Auto) 5.2 x10^3uL (1.8-7.7) Lymphocytes # (Auto) 4.1 x10^3/uL (1.0-4.8) Monocytes # (Auto) 0.5 x10^3/uL (0.0-1.1) Eosinophils # (Auto) 0.2 x10^3/uL (0.0-0.7) Basophils # (Auto) 0.1 x10^3/uL (0.0-0.2) Sodium Level 134 mmol/L (136-145) L Potassium Level 3.6 mmol/L (3.5-5.1) Chloride Level 96 mmol/L (98-107) L Carbon Dioxide Level 30 mmol/L (21-32) Anion Gap 8 (6-14) Blood Urea Nitrogen 19 mg/dL (7-20) Creatinine 1.1 mg/dL (0.6-1.0) H Estimated GFR (Cockcroft-Gault) 49.5 BUN/Creatinine Ratio 17 (6-20) Glucose Level 133 mg/dL (70-99) H Calcium Level 9.1 mg/dL (8.5-10.1) Total Bilirubin Pending Aspartate Amino Transferase (AST) Pending Alanine Aminotransferase (ALT) Pending Alkaline Phosphatase Pending Total Protein Pending Albumin Pending Albumin/Globulin Ratio Pending Lipase Pending Laboratory Tests 07/01/18 21:14 Laboratory Tests 07/01/18 21:14 EKG EKG EKG: reviewed [] Radiology/Procedures Radiology/Procedures CT abdomen/pelvis: [] Course & Med Decision Making Course & Med Decision Making Pertinent Labs and Imaging studies reviewed. (See chart for details) Chronic abdominal pain. Lab work reviewed. Pain addressed, CT abdomen and pelvis pending. Care endorsed to Dr. Murillo at 22:00 with anticipated discharge home pending clinical cousse and CT findings.] Dragon Disclaimer Dragon Disclaimer This electronic medical record was generated, in whole or in part, using a voice recognition dictation system. Departure Departure Impression: Primary Impression: Abdominal pain Referrals: Meagan ALVAREZ MD (PCP) WAYLON NGUYEN DO Jul 01, 2018 21:44
--- NOTE | 2018-07-01 22:14 | RAD ---
CT ABD PELV W/ IV CONTRST ONLY dated 07/01/2018 9:40 PM Indication: Pain.RUQ PAIN; OMNI 300, 60ML. Comparison: 03/30/2018 Technique: Contiguous axial imaging of the abdomen and pelvis performed after the intravenous administration of 60 cc Omnipaque 300. One or more of the following individualized dose reduction techniques were utilized for this examination: 1. Automated exposure control 2. Adjustment of the mA and/or kV according to patient size 3. Use of iterative reconstruction technique Findings: Limited images of lung bases are clear. Heart size within normal limits. No pleural or pericardial effusion. Liver is of diffuse low density suggesting fatty infiltration. No apparent mass. Biliary tree normal in caliber. The gallbladder is surgically absent. Spleen, pancreas, adrenal glands unremarkable. Kidneys are symmetric in size and enhancement. No hydronephrosis. Unopacified GI tract normal in caliber and contour. No focal bowel wall thickening. No inflammatory stranding in the mesentery. No ascites or lymphadenopathy. Abdominal aorta normal in caliber. The appendix is not clearly identified. No inflammatory changes in the right lower quadrant. Evidence of prior ventral hernia repair with no definite recurrent hernia defect. Images of the pelvis show nondistended urinary bladder. Uterus is surgically absent. No free pelvic fluid or pelvic lymphadenopathy. Small fat-containing inguinal hernia on the left. Bone windows show no acute findings. Multilevel spondylosis. IMPRESSION: 1. No acute abnormality of abdomen or pelvis. 2. Status post cholecystectomy, ventral hernia repair and hysterectomy. 3. Mild fatty infiltration of the liver. Electronically signed by: Maik Ferrera MD (07/01/2018 10:11 PM) [facility]
[2018-07-01 23:38] VITALS: BP 163/85
[2018-07-02] MEDS ORDERED: IOHEXOL 300 MG/ML 100ML VIAL. ONE (03:55)
--- NOTE | 2018-07-02 06:14 | EKG ---
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
== END 2018-07-01 23:44 | disposition home or self-care (01) ==
LOC: ER 20:16
DX: G89.29 Other chronic pain (principal); R10.30 Lower abdominal pain, unspecified; R19.7 Diarrhea, unspecified; R10.11 Right upper quadrant pain; I10 Essential (primary) hypertension; E11.9 Type 2 diabetes mellitus without complications; G43.909 Migraine, unspecified, not intractable, without status migrainosus; J45.909 Unspecified asthma, uncomplicated; Z86.718 Personal history of other venous thrombosis and embolism; Z90.49 Acquired absence of other specified parts of digestive tract; Z90.710 Acquired absence of both cervix and uterus; Z90.89 Acquired absence of other organs; Z98.890 Other specified postprocedural states; Z88.0 Allergy status to penicillin; Z88.2 Allergy status to sulfonamides; Z88.4 Allergy status to anesthetic agent; Z88.5 Allergy status to narcotic agent; Z91.041 Radiographic dye allergy status; Z88.8 Allergy status to other drugs, medicaments and biological substances
CPT/HCPCS: 36415; 74177; 80053; 81001; 83690; 84484; 85025; 93005; 96374; 96376; 99285; J2270; Q9967

== ENCOUNTER 2018-07-06 16:43 | Emergency (ER) | payer BC, OTHER ==
[~2018-07-06] VITALS: Ht 165.1 cm; Wt 118.8 kg
[~2018-07-06 16:43] MED LIST changes: +HYDR-3164 PO; -HYDR-971 PO
[2018-07-06 17:27] LABS: BILIRUBIN,URINE NEGATIVE (NEG); CLARITY,URINE CLEAR; NITRITE,URINE NEGATIVE (NEG); PROTEIN,URINE NEGATIVE (NEG-TRACE); UROBILINOGEN,URINE 0.2 mg/dL (0.2 mg/dL)
--- NOTE | 2018-07-06 17:28 | EKG ---
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
[2018-07-06] MEDS ORDERED: IV NORMAL SALINE 500ML BAG 500 ML IV ONE (17:30)
[2018-07-06 17:32] LABS: COLOR,URINE STRAW
[2018-07-06 17:33] LABS: BACTERIA,URINE FEW /HPF (0-FEW); RBC,URINE 0 /HPF (0-2); SQUAMOUS EPITHELIAL CELL,UR FEW /LPF; WBC,URINE 0 /HPF (0-4)
--- NOTE | 2018-07-06 17:35 | PHYS DOC ---
Past Medical History Past Medical History: Asthma, Diabetes-Type II, DVT, Hypertension, Migraines, Other Additional Past Medical Histor: asthma PE Past Surgical History: Appendectomy, Cholecystectomy, Hysterectomy, Other Additional Past Surgical Histo: bilateral cataract, bilater shoulder, hernia x7 ; colon; Alcohol Use: None Drug Use: None Adult General Chief Complaint Chief Complaint: DIZZY/LIGHT HEADED HPI HPI 68 y/o female presents to ER with c/o generalized fatigue, dizziness, ALTMAN, and falls. Pt reports she has had decreased appetite and nausea. She denies any vomiting episodes but reports she had loose stools today. She reports one episode she couldn't make it to bathroom and was incontinent of stools. Pt reports she was walking upstairs to rest when she became dizzy causing her to fall forward on her carpeted steps- she denies LOC. Pt reports she had similar episode yest. Pt reports her ALTMAN has been ongoing since yest. "all over" and she denies any eye pain, photosensitivity, tinnitus, or visual disturbances. Pt per her medical records has been in ER multiple times this yr- records indicate hx of migraines and chronic abd pain d/t mult. abd surgeries/ventral wall hernia. Pt had CT abd/pelvis on 07/01/18. Review of Systems Review of Systems Constitutional: Denies fever or chills. Reports generalized fatigue Eyes: Denies change in visual acuity, redness, or eye pain [] HENT: Denies nasal congestion or sore throat [] Respiratory: Denies cough or shortness of breath [] Cardiovascular: Denies CP/palpitations GI: Denies vomiting, bloody stools or diarrhea. Reports rt side chronic abd pain - denies acute changes. Reports intermittent nausea. Reports loose stools today. : Denies dysuria or hematuria [] Musculoskeletal: Denies back/neck pain or joint pain [] Integument: Denies rash, swelling or skin lesions [] Neurologic: Denies focal weakness or sensory changes. Reports diffuse ALTMAN with intermittent dizziness Endocrine: Denies polyuria or polydipsia [] All other systems were reviewed and found to be within normal limits, except as documented in this note. Current Medications Current Medications Current Medications Medications (Trade) Dose Ordered Sig/Irish Start Time Stop Time Status Last Admin Dose Admin Sodium Chloride 500 ml @ 500 mls/hr 1X ONCE 07/06/18 17:30 07/06/18 18:29 Allergies Allergies Allergies Coded Allergies Type Severity Reaction Last Updated Verified Penicillins Allergy Severe itching, dry mouth, tongue swells 01/24/18 Yes Sulfa (Sulfonamide Antibiotics) Allergy Intermediate ITCHING DRY MOUTH, hives/ swelling 12/16/15 Yes fentanyl Allergy Intermediate 12/16/15 Yes hydromorphone HCl Allergy Intermediate MORPHINE OK 12/16/15 Yes methylprednisolone Allergy Intermediate RED MAN SYNDROME 10/11/16 Yes prednisone Allergy Intermediate RED MED SYNDROME 10/11/16 Yes gluten Allergy Mild bloating 04/18/17 Yes I S O L A T I O N *CONTACT* Allergy Unknown 02/04/17 Yes oxycodone HCl Adverse Reaction Intermediate "i FEEL LIKE I HAVE WORMS IN ME" Yes Physical Exam Physical Exam Constitutional: Well developed, well nourished, no acute distress, non-toxic appearance. Clear speech HENT: Normocephalic, atraumatic, bilateral ears normal, mucous membranes pink/ dry, no oral exudates, nose normal. [] Eyes: 3mm PERRLA, EOMI, no nystagmus, conjunctiva normal, no discharge. [] Neck: Normal range of motion, no tenderness- no midline cervical tenderness on palpation or palpable deformity, supple, no stridor. [] Cardiovascular:Heart rate regular rhythm, no murmur [] Lungs & Thorax: Bilateral breath sounds clear to auscultation. Respirations equal and nonlabored. No chest wall tenderness. Healing bruise on left breast- yellow in color. Patient is tender to palpation at site-no areola discharge- no erythema/crepitus Abdomen: Bowel sounds normal, soft/obese, diffuse tenderness right mid to lower abdomen which patient reports is chronic denying any acute change, no masses, no pulsatile masses. [] Skin: Warm, dry, no erythema, no rash. [] Back: No tenderness- no midline spinal tenderness or visible injury, no CVA tenderness. [] Extremities: Pelvis stable/nontender. No tenderness, no cyanosis, no clubbing, ROM intact, no edema. [] Neurologic: Alert and oriented X 3, normal motor function, normal sensory function, no focal deficits noted. [] Psychologic: Affect normal, judgement normal, mood normal. [] Current Patient Data Lab Values Laboratory Tests Test 07/06/18 16:59 Urine Collection Type Void Urine Color Straw Urine Clarity Clear Urine pH 7.0 Urine Specific [place] <=1.005 Urine Protein Negative mg/dL (NEG-TRACE) Urine Glucose (UA) Negative mg/dL (NEG) Urine Ketones (Stick) Negative mg/dL (NEG) Urine Blood Negative (NEG) Urine Nitrite Negative (NEG) Urine Bilirubin Negative (NEG) Urine Urobilinogen Dipstick 0.2 mg/dL (0.2 mg/dL) Urine Leukocyte Esterase Negative (NEG) Urine RBC 0 /HPF (0-2) Urine WBC 0 /HPF (0-4) Urine Squamous Epithelial Cells Few /LPF Urine Bacteria Few /HPF (0-FEW) EKG EKG [] Radiology/Procedures Radiology/Procedures [] Course & Med Decision Making Course & Med Decision Making Pertinent Labs and Imaging studies reviewed. (See chart for details) 1754: Discussed pt's case and plan of care with Janice Orlando NP who will assume pt's care- labs/imaging are pending at time of care being assumed. Dragon Disclaimer Dragon Disclaimer This electronic medical record was generated, in whole or in part, using a voice recognition dictation system. Departure Departure Referrals: Meagan ALVAREZ MD (PCP) GALINDO DO BENCH CARPENTER Jul 06, 2018 17:35
[2018-07-06 17:57] LABS: BASO # 0.1 x10^3/uL (0.0-0.2); BASO % 1 % (0-3); EOS # 0.2 x10^3/uL (0.0-0.7); EOS % 3 % (0-3); HEMATOCRIT 41.5 % (36.0-47.0); HEMOGLOBIN 13.8 g/dL (12.0-15.5); LYMPH % 45 % (24-48); MEAN CORPUSCULAR HEMOGLOBIN 28 pg (25-35); MEAN CORPUSCULAR HGB CONC 33 g/dL (31-37); MEAN CORPUSCULAR VOLUME 85 fL (79-100); MONO # 0.7 x10^3/uL (0.0-1.1); MONO % 7 % (0-9); NEUT % 44 % (31-73); PLATELET COUNT 308 x10^3/uL (140-400); RED BLOOD COUNT 4.91 x10^6/uL (3.50-5.40); RED CELL DISTRIBUTION WIDTH 14.8 % (11.5-14.5); WHITE BLOOD COUNT 9.1 x10^3/uL (4.0-11.0)
[2018-07-06 18:02] LABS: PROTHROMBIN TIME PATIENT 14.4 SEC (11.7-14.0)
[2018-07-06 18:11] LABS: CALCIUM 9.4 mg/dL (8.5-10.1); CREATININE 0.7 mg/dL (0.6-1.0); GFR 83.5; POTASSIUM 3.7 mmol/L (3.5-5.1)
[2018-07-06 18:21] LABS: ALBUMIN 3.3 g/dL (3.4-5.0); ALBUMIN/GLOBULIN RATIO 0.8 (1.0-1.7); MAGNESIUM 1.8 mg/dL (1.8-2.4); TOTAL BILIRUBIN 0.4 mg/dL (0.2-1.0); TOTAL PROTEIN 7.6 g/dL (6.4-8.2)
--- NOTE | 2018-07-06 18:27 | RAD ---
CT HEAD AND CERVICAL SPINE WO dated 07/06/2018 6:00 PM Indication: Pain injuryFALL NO CONTRAST PREV SENT , head and neck pain Comparison: No comparison is available. Technique: Contiguous axial imaging the head was performed from skull base to vertex. In addition, axial imaging of the cervical spine acquired with thin cut coronal and sagittal reconstruction. One or more of the following individualized dose reduction techniques were utilized for this examination: 1. Automated exposure control 2. Adjustment of the mA and/or kV according to patient size 3. Use of iterative reconstruction technique Findings: Ventricles and sulci are mildly prominent for age. No midline shift or mass effect. Mild patchy low density in the deep/subcortical periventricular white matter. No hemorrhage or extra axial collection. Posterior fossa and brainstem unremarkable. Visualized paranasal sinuses and mastoid air cells are clear. No apparent calvarial abnormality. Images of the cervical spine were acquired from skull base to T1. Straightening of the normal cervical lordosis, otherwise sagittal alignment is anatomic. Vertebral body heights are maintained. No prevertebral soft tissue swelling. Posterior elements are intact. Mild to moderate endplate hypertrophic changes throughout. Multilevel uncovertebral spurring and facet arthropathy. There is moderate disc space narrowing at C4-C5, C5-C6 and C6-C7. Resultant severe left foraminal stenosis at C5-C6 and moderate left foraminal stenosis at C4-C5. Milder degrees of foraminal narrowing throughout. There is mild central stenosis at the C4-C5 C5-C6 levels. Visualized soft tissue structures are unremarkable. IMPRESSION HEAD: 1. No evidence of acute intracranial hemorrhage or mass. 2. Mild chronic small vessel ischemic changes and atrophy. Impression cervical spine: 1. No evidence of fracture or malalignment. 2. Moderate multilevel spondylosis. Electronically signed by: Maik Ferrera MD (07/06/2018 6:23 PM) [facility]
--- NOTE | 2018-07-06 19:03 | RAD ---
Single view chest dated 07/06/2018. Comparison made to 06/24/2018. CLINICAL INDICATION: Pain after fall. FINDINGS: Single upright view of the chest shows normal heart and mediastinal contours. Lungs are clear without focal consolidation. Vascular interstitium within normal limits. No pleural effusion or pneumothorax. Calcified bilateral hilar lymph nodes with calcified granuloma left mid zone. IMPRESSION: No acute radiographic abnormality. Electronically signed by: Maik Ferrera MD (07/06/2018 7:00 PM) [facility]
[2018-07-06] MEDS ORDERED: MORPHINE SULFATE 10 MG/ML VIAL. IV ONE (19:30)
[2018-07-06] MEDS ORDERED: MECLIZINE HCL 12.5 MG TABLET. PO ONE (20:00)
[2018-07-06] MEDS ORDERED: MECL25TA3 PO (20:01)
[2018-07-06 20:11] VITALS: BP 172/81
== END 2018-07-06 20:54 | disposition home or self-care (01) ==
LOC: ER 16:43
DX: R53.83 Other fatigue (principal); R42 Dizziness and giddiness; R51 Headache; G89.29 Other chronic pain; R10.84 Generalized abdominal pain; R11.0 Nausea; R19.7 Diarrhea, unspecified; R63.0 Anorexia; G43.909 Migraine, unspecified, not intractable, without status migrainosus; J45.909 Unspecified asthma, uncomplicated; E11.9 Type 2 diabetes mellitus without complications; I10 Essential (primary) hypertension; Z86.718 Personal history of other venous thrombosis and embolism; Z90.89 Acquired absence of other organs; Z90.49 Acquired absence of other specified parts of digestive tract; Z90.710 Acquired absence of both cervix and uterus; Z98.890 Other specified postprocedural states; Z86.711 Personal history of pulmonary embolism; Z88.0 Allergy status to penicillin; Z88.2 Allergy status to sulfonamides; Z88.4 Allergy status to anesthetic agent; Z88.5 Allergy status to narcotic agent; Z91.041 Radiographic dye allergy status; Z88.8 Allergy status to other drugs, medicaments and biological substances
CPT/HCPCS: 36415; 70450; 71045; 72125; 80053; 81001; 83735; 84484; 85025; 85610; 85730; 93005; 96361; 96374; 99285; J2270; J7040; J8597

== ENCOUNTER 2018-08-12 22:02 | Emergency (ER) | payer BC, OTHER ==
[~2018-08-12] VITALS: Ht 165.1 cm; Wt 122.5 kg
[~2018-08-12 22:02] MED LIST changes: -HYDR-2758 PO; +HYDR-2761 PO; -HYDR-2762 PO; +HYDR-2765 PO; -HYDR-2766 PO; +HYDR-2769 PO; +INSU100I11 SQ; +INSU100I13 SQ; -LINA145C PO; +LINZESS145 MCG PO
[2018-08-12 23:29] VITALS: BP 168/81
[2018-08-13] MEDS ORDERED: KETOROLAC 15 MG/ML VIAL. IM ONE (01:00)
--- NOTE | 2018-08-13 01:20 | RAD ---
Right great toe 3 views 08/13/2018. Reason for exam: Pain and bleeding after stubbing toe. No fracture or dislocation is seen. There is no apparent destructive process or unusual joint narrowing. There appears to be some displacement of the nail. IMPRESSION: No apparent acute bony abnormality. Electronically signed by: Roland Ramsay Jr., MD (08/13/2018 1:16 AM) [facility]
--- NOTE | 2018-08-13 01:28 | PHYS DOC ---
Past Medical History Past Medical History: Asthma, Diabetes-Type II, DVT, Hypertension, Migraines, Other Additional Past Medical Histor: asthma, PE, chronic back/abdominal pain Past Surgical History: Appendectomy, Cholecystectomy, Hysterectomy, Other Additional Past Surgical Histo: bilateral cataract, bilater shoulder, hernia x7 ; colon; Alcohol Use: None Drug Use: None Adult General Chief Complaint Chief Complaint: TOE PROBLEM HPI HPI Patient is a 68 year old female who presents with right great toe pain. This was injured approximately 6 months ago, lifting the nail from the nailbed. Over the past 24 hours she has noted increased pain and purulent material from underneath the nail. Patient is diabetic patient. Notes that her blood sugars have been quite labile. Denies any fever. Increased pain with palpation. Denies getting pain relief with her chronic narcotic pain medicine.[] Review of Systems Review of Systems Constitutional: Denies fever or chills [] Eyes: Denies change in visual acuity, redness, or eye pain [] HENT: Denies nasal congestion or sore throat [] Respiratory: Denies cough or shortness of breath [] Cardiovascular: No additional information not addressed in HPI [] GI: Denies abdominal pain, nausea, vomiting, bloody stools or diarrhea [] : Denies dysuria or hematuria [] Musculoskeletal: Denies back pain or joint pain [] Integument: Denies rash or skin lesions [] Neurologic: Denies headache, focal weakness or sensory changes [] Endocrine: Denies polyuria or polydipsia [] All other systems were reviewed and found to be within normal limits, except as documented in this note. Current Medications Current Medications Current Medications Medications (Trade) Dose Ordered Sig/Irish Start Time Stop Time Status Last Admin Dose Admin Ketorolac Tromethamine (Toradol 15mg Vial) 15 mg 1X ONCE 08/13/18 01:00 08/13/18 01:01 DC 08/13/18 01:30 15 MG Allergies Allergies Allergies Coded Allergies Type Severity Reaction Last Updated Verified Penicillins Allergy Severe itching, dry mouth, tongue swells 01/24/18 Yes Sulfa (Sulfonamide Antibiotics) Allergy Intermediate ITCHING DRY MOUTH, hives/ swelling 12/16/15 Yes fentanyl Allergy Intermediate 12/16/15 Yes hydromorphone HCl Allergy Intermediate MORPHINE OK 12/16/15 Yes methylprednisolone Allergy Intermediate RED MAN SYNDROME 10/11/16 Yes prednisone Allergy Intermediate RED MED SYNDROME 10/11/16 Yes gluten Allergy Mild bloating 04/18/17 Yes I S O L A T I O N *CONTACT* Allergy Unknown 02/04/17 Yes oxycodone HCl Adverse Reaction Intermediate "i FEEL LIKE I HAVE WORMS IN ME" Yes Physical Exam Physical Exam Constitutional: Well developed, well nourished, no acute distress, non-toxic appearance. [] HENT: Normocephalic, atraumatic, bilateral external ears normal, oropharynx moist, no oral exudates, nose normal. [] Eyes: PERRLA, EOMI, conjunctiva normal, no discharge. [] Neck: Normal range of motion, no tenderness, supple, no stridor. [] Cardiovascular:Heart rate regular rhythm, no murmur [] Lungs & Thorax: Bilateral breath sounds clear to auscultation [] Abdomen: Bowel sounds normal, soft, no tenderness, no masses, no pulsatile masses. [] Skin: Warm, dry, no erythema, no rash. [] Back: No tenderness, no CVA tenderness. [] Extremities: No tenderness, no cyanosis, no clubbing, ROM intact, no edema. [] Neurologic: Alert and oriented X 3, normal motor function, normal sensory function, no focal deficits noted. [] Psychologic: Affect normal, judgement normal, mood normal. [] Current Patient Data Vital Signs Vital Signs Date Time Temp Pulse Resp B/P (MAP) Pulse Ox O2 Delivery O2 Flow Rate FiO2 08/12/18 23:29 98.1 98 18 168/81 (110) 98 Room Air 98.1 Lab Values Laboratory Tests Test 08/13/18 01:33 Glucose (Fingerstick) 178 mg/dL (70-99) H EKG EKG [] Radiology/Procedures Radiology/Procedures Right great toe 3 views 08/13/2018. Reason for exam: Pain and bleeding after stubbing toe. No fracture or dislocation is seen. There is no apparent destructive process or unusual joint narrowing. There appears to be some displacement of the nail. IMPRESSION: No apparent acute bony abnormality.[] Course & Med Decision Making Course & Med Decision Making Pertinent Labs and Imaging studies reviewed. (See chart for details) Medical decision making: There does not appear to be a fracture or dislocation. No evidence of osteomyelitis. Patient's blood sugar was 178, no evidence of diabetic ketoacidosis.[] Dragon Disclaimer Dragon Disclaimer This electronic medical record was generated, in whole or in part, using a voice recognition dictation system. Departure Departure Impression: Primary Impression: Toe infection Disposition: HOME, SELF-CARE Condition: GOOD Referrals: Meagan ALVAREZ MD (PCP) Follow-up in 2 days Patient Instructions: Skin Infections Additional Instructions: Follow-up with your regular doctor in 2 days. Take the antibiotics as prescribed. Return to the ER if worsening pain, or any other concerns. Scripts Meloxicam (MELOXICAM) 7.5 Mg Tablet 7.5 MG PO DAILY, #20 TAB Prov: GRISELDA OROZCO DO 08/13/18 Clindamycin Hcl (CLINDAMYCIN HCL) 150 Mg Capsule 300 MG PO QID, #80 CAP Prov: GRISELDA OROZCO DO 08/13/18 GRISELDA OROZCO DO Aug 13, 2018 01:28
[2018-08-13] MEDS ORDERED: CLIN150C14 PO (01:54)
[2018-08-13] MEDS ORDERED: MELO7.5T29 PO (01:54)
== END 2018-08-13 02:29 | disposition home or self-care (01) ==
LOC: ER 22:02
DX: L08.89 Other specified local infections of the skin and subcutaneous tissue (principal); M79.674 Pain in right toe(s); J45.909 Unspecified asthma, uncomplicated; E11.9 Type 2 diabetes mellitus without complications; I10 Essential (primary) hypertension; G43.909 Migraine, unspecified, not intractable, without status migrainosus; G89.29 Other chronic pain; Z86.718 Personal history of other venous thrombosis and embolism; Z88.0 Allergy status to penicillin; Z88.2 Allergy status to sulfonamides; Z88.4 Allergy status to anesthetic agent; Z88.5 Allergy status to narcotic agent; Z91.041 Radiographic dye allergy status; Z88.8 Allergy status to other drugs, medicaments and biological substances
CPT/HCPCS: 73660; 82962; 96372; 99284; J1885; 99283

== ENCOUNTER 2018-09-03 21:41 | Emergency (ER) | payer BC, OTHER ==
[~2018-09-03] VITALS: Ht 172.7 cm; Wt 122.5 kg
[~2018-09-03 21:41] MED LIST changes: +CLIN150C14 PO; +MELO7.5T29 PO
[2018-09-03 22:49] LABS: BASO # 0.1 x10^3/uL (0.0-0.2); BASO % 1 % (0-3); EOS # 0.3 x10^3/uL (0.0-0.7); EOS % 4 % (0-3); HEMATOCRIT 37.4 % (36.0-47.0); HEMOGLOBIN 12.9 g/dL (12.0-15.5); LYMPH # 3.4 x10^3/uL (1.0-4.8); LYMPH % 39 % (24-48); MEAN CORPUSCULAR HEMOGLOBIN 29 pg (25-35); MEAN CORPUSCULAR HGB CONC 35 g/dL (31-37); MEAN CORPUSCULAR VOLUME 85 fL (79-100); MONO # 0.5 x10^3/uL (0.0-1.1); MONO % 6 % (0-9); NEUT # 4.4 x10^3uL (1.8-7.7); NEUT % 50 % (31-73); PLATELET COUNT 300 x10^3/uL (140-400); RED BLOOD COUNT 4.39 x10^6/uL (3.50-5.40); WHITE BLOOD COUNT 8.7 x10^3/uL (4.0-11.0)
[2018-09-03 22:56] LABS: CALCIUM 9.1 mg/dL (8.5-10.1); CREATININE 0.8 mg/dL (0.6-1.0); GFR 71.5; POTASSIUM 3.7 mmol/L (3.5-5.1)
[2018-09-03 23:02] LABS: ALBUMIN 2.9 g/dL (3.4-5.0); ALBUMIN/GLOBULIN RATIO 0.7 (1.0-1.7); TOTAL BILIRUBIN 0.2 mg/dL (0.2-1.0); TOTAL PROTEIN 6.9 g/dL (6.4-8.2)
[2018-09-03] MEDS ORDERED: CONTRAST GIVEN. MC PRN (23:15)
[2018-09-03] MEDS: IOHEXOL 300 MG/ML 100ML VIAL. IV ONE (23:22)
[2018-09-03 23:38] VITALS: BP 152/68
--- NOTE | 2018-09-03 23:39 | RAD ---
PQRS Compliance statement: One or more of the following individualized dose reduction techniques were utilized for this examination: 1. Automated exposure control. 2. Adjustment of the mA and/or kV according to patient size. 3. Use of iterative reconstruction technique. Indication:Left upper quadrant pain; Omni 300, 75ml TECHNIQUE: CT abdomen and pelvis with IV contrast with multiplanar reformats. COMPARISON: 07/11/2018 FINDINGS: Heart is normal in size. No pericardial or pleural effusion. Clear lung bases. Liver is mildly enlarged measuring 22 cm and clinical dimension without focal hepatic lesion. Spleen, pancreas, adrenals within normal limits. Status post cholecystectomy. No nephrolithiasis or hydronephrosis. No enlarged retroperitoneal or pelvic adenopathy. No free pelvic fluid or ascites. Status post hysterectomy. No bowel obstruction. Laxity of anterior abdominal wall is seen. Urinary bladder is within normal limits. No pneumoperitoneum. No suspicious bony lesion. Advanced degenerative disc disease is seen at L4-L5. IMPRESSION: Mild hepatomegaly, nonspecific. Electronically signed by: Alberto South DO (09/03/2018 11:34 PM) [facility]
[2018-09-04] MEDS: HYDROcodone/APAP 10/325 1 TAB TABLET PO ONE
--- NOTE | 2018-09-04 00:04 | PHYS DOC ---
Past Medical History Past Medical History: Asthma, Diabetes-Type II, DVT, Hypertension, Migraines, Other Additional Past Medical Histor: asthma, PE, chronic back/abdominal pain Past Surgical History: Appendectomy, Cholecystectomy, Hysterectomy, Other Additional Past Surgical Histo: bilateral cataract, bilater shoulder, hernia x7 ; colon; Alcohol Use: None Drug Use: None Adult General Chief Complaint Chief Complaint: ABDOMINAL PAIN HPI HPI Patient is a 68 year old female with history of chronic abdominal pain, abdominal wall hernia who presents with poorly controlled mid to lower right- sided abdominal pain. Pain is described as dull, and is rated moderate to severe. Patient last took hydrocodone 3 hours prior to ED arrival. No nausea, vomiting, diarrhea. No constipation. No urinary frequency or urgency or flank pain. Patient states pain is similar character quality and location, but with increased severity compared to her chronic abdominal pain.[] Review of Systems Review of Systems Review of symptoms as per history of present illness. All other review symptoms are negative. All other systems were reviewed and found to be within normal limits, except as documented in this note. Current Medications Current Medications Current Medications Medications (Trade) Dose Ordered Sig/Irish Start Time Stop Time Status Last Admin Dose Admin Acetaminophen/ Hydrocodone Bitart (Lortab 10/325) 1 tab 1X ONCE 09/04/18 00:00 09/04/18 00:01 Info (CONTRAST GIVEN -- Rx MONITORING) 1 each PRN DAILY PRN 09/03/18 23:15 09/05/18 23:14 Iohexol (Omnipaque 300 Mg/ml) 75 ml 1X ONCE 09/03/18 23:30 09/03/18 23:31 DC 09/03/18 23:22 75 ML Allergies Allergies Allergies Coded Allergies Type Severity Reaction Last Updated Verified Penicillins Allergy Severe itching, dry mouth, tongue swells 01/24/18 Yes Sulfa (Sulfonamide Antibiotics) Allergy Intermediate ITCHING DRY MOUTH, hives/ swelling 12/16/15 Yes fentanyl Allergy Intermediate 12/16/15 Yes hydromorphone HCl Allergy Intermediate MORPHINE OK 12/16/15 Yes methylprednisolone Allergy Intermediate RED MAN SYNDROME 10/11/16 Yes prednisone Allergy Intermediate RED MED SYNDROME 10/11/16 Yes gluten Allergy Mild bloating 04/18/17 Yes I S O L A T I O N *CONTACT* Allergy Unknown 02/04/17 Yes oxycodone HCl Adverse Reaction Intermediate "i FEEL LIKE I HAVE WORMS IN ME" Yes Physical Exam Physical Exam Constitutional: Well developed, well nourished, no acute distress, non-toxic appearance. [] HENT: Normocephalic, atraumatic, bilateral external ears normal, oropharynx moist, no oral exudates, nose normal. [] Eyes: PERRLA, EOMI, conjunctiva normal, no discharge. [] Neck: Normal range of motion. [] Cardiovascular:Heart rate regular rhythm, no murmur [] Lungs & Thorax: Bilateral breath sounds clear to auscultation [] Abdomen: Bowel sounds normal, soft, diffuse right periumbilical pain, tenderness , no palpable hernia, masses.[] Skin: Warm, dry, no erythema, no rash. [] Neurologic: Alert and oriented X 3, normal motor function, normal sensory function, no focal deficits noted. [] Psychologic: Affect normal, judgement normal, mood normal. [] Current Patient Data Vital Signs Vital Signs Date Time Temp Pulse Resp B/P (MAP) Pulse Ox O2 Delivery O2 Flow Rate FiO2 09/03/18 21:55 98.4 94 18 161/80 (107) 97 Room Air 98.4 Lab Values Laboratory Tests Test 09/03/18 22:35 White Blood Count 8.7 x10^3/uL (4.0-11.0) Red Blood Count 4.39 x10^6/uL (3.50-5.40) Hemoglobin 12.9 g/dL (12.0-15.5) Hematocrit 37.4 % (36.0-47.0) Mean Corpuscular Volume 85 fL (79-100) Mean Corpuscular Hemoglobin 29 pg (25-35) Mean Corpuscular Hemoglobin Concent 35 g/dL (31-37) Red Cell Distribution Width 15.0 % (11.5-14.5) H Platelet Count 300 x10^3/uL (140-400) Neutrophils (%) (Auto) 50 % (31-73) Lymphocytes (%) (Auto) 39 % (24-48) Monocytes (%) (Auto) 6 % (0-9) Eosinophils (%) (Auto) 4 % (0-3) H Basophils (%) (Auto) 1 % (0-3) Neutrophils # (Auto) 4.4 x10^3uL (1.8-7.7) Lymphocytes # (Auto) 3.4 x10^3/uL (1.0-4.8) Monocytes # (Auto) 0.5 x10^3/uL (0.0-1.1) Eosinophils # (Auto) 0.3 x10^3/uL (0.0-0.7) Basophils # (Auto) 0.1 x10^3/uL (0.0-0.2) Sodium Level 134 mmol/L (136-145) L Potassium Level 3.7 mmol/L (3.5-5.1) Chloride Level 100 mmol/L (98-107) Carbon Dioxide Level 27 mmol/L (21-32) Anion Gap 7 (6-14) Blood Urea Nitrogen 14 mg/dL (7-20) Creatinine 0.8 mg/dL (0.6-1.0) Estimated GFR (Cockcroft-Gault) 71.5 BUN/Creatinine Ratio 18 (6-20) Glucose Level 166 mg/dL (70-99) H Lactic Acid Level 2.0 mmol/L (0.4-2.0) Calcium Level 9.1 mg/dL (8.5-10.1) Total Bilirubin 0.2 mg/dL (0.2-1.0) Aspartate Amino Transferase (AST) 23 U/L (15-37) Alanine Aminotransferase (ALT) 28 U/L (14-59) Alkaline Phosphatase 128 U/L (46-116) H Total Protein 6.9 g/dL (6.4-8.2) Albumin 2.9 g/dL (3.4-5.0) L Albumin/Globulin Ratio 0.7 (1.0-1.7) L Lipase 461 U/L (73-393) H Laboratory Tests 09/03/18 22:35 Laboratory Tests 09/03/18 22:35 EKG EKG [] Radiology/Procedures Radiology/Procedures [CT abdomen and pelvis: No acute disease per radiology report] Course & Med Decision Making Course & Med Decision Making Pertinent Labs and Imaging studies reviewed. (See chart for details) [Poorly controlled chronic abdominal pain without acute findings. Patient has been evaluated in this emergency multiple times the past few months for the same. Her pain is managed by her primary care physician. and imaging studies today are nondiagnostic. Will defer further management of chronic abdominal pain. Return precautions reviewed.] Dragon Disclaimer Dragon Disclaimer This electronic medical record was generated, in whole or in part, using a voice recognition dictation system. Departure Departure Impression: Primary Impression: Chronic abdominal pain Disposition: HOME, SELF-CARE Condition: GOOD Patient Instructions: Abdominal Pain (Nonspecific) Additional Instructions: You were evaluated in the emergency department for abdominal pain. Abdomen imaging studies were performed and are nondiagnostic. 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 WAYLON NGUYEN DO Sep 04, 2018 00:04
== END 2018-09-04 | disposition home or self-care (01) ==
LOC: ER 21:41
DX: G89.29 Other chronic pain (principal); R10.33 Periumbilical pain; R10.84 Generalized abdominal pain; I10 Essential (primary) hypertension; E11.9 Type 2 diabetes mellitus without complications; J45.909 Unspecified asthma, uncomplicated; G43.909 Migraine, unspecified, not intractable, without status migrainosus; Z86.718 Personal history of other venous thrombosis and embolism; Z90.89 Acquired absence of other organs; Z90.49 Acquired absence of other specified parts of digestive tract; Z90.710 Acquired absence of both cervix and uterus; Z98.890 Other specified postprocedural states; Z86.711 Personal history of pulmonary embolism; Z88.0 Allergy status to penicillin; Z88.2 Allergy status to sulfonamides; Z88.4 Allergy status to anesthetic agent; Z88.5 Allergy status to narcotic agent; Z91.041 Radiographic dye allergy status; Z88.8 Allergy status to other drugs, medicaments and biological substances
CPT/HCPCS: 36415; 74177; 80053; 83605; 83690; 85025; 99284; Q9967

== ENCOUNTER 2018-09-20 15:54 | Emergency (ER) | payer BC, OTHER ==
[~2018-09-20] VITALS: Ht 165.1 cm; Wt 122.5 kg
[~2018-09-20 15:54] MED LIST changes: +AMLO5TAB10 PO; -AMLO5TAB7 PO; +MONT10TA49 PO; -MONT10TA6 PO; -PANT40TA5 PO; +PANT40TA77 PO; +RANI-376 PO; -RANI150T21 PO
[2018-09-20 16:04] VITALS: BP 154/67
[2018-09-20] MEDS ORDERED: IPRATRPIUM/ALBUTEROL 0.5/2.5MG 3 ML NEBU. NEB ONE (16:15)
--- NOTE | 2018-09-20 16:37 | PHYS DOC ---
Past Medical History Past Medical History: Asthma, Diabetes-Type II, DVT, Hypertension, Migraines, Other Additional Past Medical Histor: asthma, PE, chronic back/abdominal pain Past Surgical History: Appendectomy, Cholecystectomy, Hysterectomy, Other Additional Past Surgical Histo: bilateral cataract, bilater shoulder, hernia x7; colon; Alcohol Use: None Drug Use: None Adult General Chief Complaint Chief Complaint: SHORTNESS OF BREATH HPI HPI 68-year-old female presents to ER via POV for complaints of shortness of air. Patient states she has history of asthma and had done her nebulizer treatment at home at 10 AM and then went out shopping. Patient states she had not felt short of air yesterday and reports this morning she felt slightly short of air prior to the treatment. Patient states she has been feeling fine denying any flu or cold-like illness. Patient denies chest pain, cough, fever or chills, or fatigue. Patient denies any recent travel or being daily smoker. Patient reports instead of going home for her nebulizer treatment she chose to come to the ER for treatment. Review of Systems Review of Systems Constitutional: Denies fever or chills. Denies fatigue Eyes: Denies change in visual acuity, redness, or eye pain [] HENT: Denies nasal congestion or sore throat [] Respiratory: Denies cough. Reports feeling short of air while out shopping Cardiovascular: Denies chest pain or palpitations GI: Denies abdominal pain, nausea, vomiting, bloody stools or diarrhea [] : Denies dysuria or hematuria [] Musculoskeletal: Denies back pain or joint pain [] Integument: Denies rash or skin lesions. Reports bilateral pedal edema denies acute changes Neurologic: Denies headache, focal weakness or sensory changes. Denies dizziness Endocrine: Denies polyuria or polydipsia [] All other systems were reviewed and found to be within normal limits, except as documented in this note. Current Medications Current Medications Current Medications Medications (Trade) Dose Ordered Sig/Irish Start Time Stop Time Status Last Admin Dose Admin Albuterol/ Ipratropium (Duoneb) 3 ml 1X ONCE 09/20/18 16:15 09/20/18 16:16 DC 09/20/18 16:34 3 ML Allergies Allergies Allergies Coded Allergies Type Severity Reaction Last Updated Verified Penicillins Allergy Severe itching, dry mouth, tongue swells 01/24/18 Yes Sulfa (Sulfonamide Antibiotics) Allergy Intermediate ITCHING DRY MOUTH, hives/swelling 12/16/15 Yes fentanyl Allergy Intermediate 12/16/15 Yes hydromorphone HCl Allergy Intermediate MORPHINE OK 12/16/15 Yes methylprednisolone Allergy Intermediate RED MAN SYNDROME 10/11/16 Yes prednisone Allergy Intermediate RED MED SYNDROME 10/11/16 Yes gluten Allergy Mild bloating 04/18/17 Yes I S O L A T I O N *CONTACT* Allergy Unknown 02/04/17 Yes oxycodone HCl Adverse Reaction Intermediate "i FEEL LIKE I HAVE WORMS IN ME" 12/16/15 Yes Physical Exam Physical Exam Constitutional: Well developed, well nourished, no acute distress, non-toxic appearance. [] HENT: Normocephalic, atraumatic, oropharynx moist, nose normal. [] Eyes: Pupils equal, conjunctiva normal, no discharge. [] Neck: Normal range of motion, no tenderness, supple, no stridor. Trachea midline Cardiovascular: Heart rate regular rhythm- heart rate 96 during exam, no murmur [] Lungs & Thorax: Bilateral breath sounds clear to auscultation- diminished air movement throughout all lung mei with less air movement in bases. Resp. equal/nonlabored. Speaking in full sentences. No wheezing/rhonchi Skin: Warm, dry, no erythema, no rash. [] Back: No tenderness, full ROM Extremities: No tenderness, no cyanosis, no clubbing, ROM intact. 1+ bilat. pedal nonpitting edema- pt reports chronic no acute changes Neurologic: Alert and oriented X 3, normal motor function, normal sensory function, no focal deficits noted. [] Psychologic: Affect normal, judgement normal, initially pt was anxious and with redirection and reassurance she appeared more calm. Current Patient Data Vital Signs EKG EKG [] Radiology/Procedures Radiology/Procedures [] Course & Med Decision Making Course & Med Decision Making 164: Patient was evaluated for complaints of asthma exacerbation while she was out shopping. Patient came to the ER for a treatment and was provided DuoNeb treatment at this time patient has increased air movement throughout all lung mei. Respirations are equal and nonlabored. She has no wheezing or abnormal lung sounds. She continues to speak in full sentences with room air saturation of 97%. Patient remains nontoxic in appearance. Discussed plans for home discharge with patient to continue her nebulizer treatments at home and to increase fluids. Patient to follow-up with her primary care physician in 2-3 days for reevaluation sooner with any concerns. Patient advised on signs and symptoms to return to ER for. Discharge instructions were discussed. Patient in the past has been able to take oral steroids with pretreatment of Benadryl but at this time she is not wanting to have medications due to steroids affecting her blood sugar and causes her to have actuation and body temperature. Pt's case and plan of care discussed with Dr. Saldana. Vanessa Disclaimer Vanessa Disclaimer This electronic medical record was generated, in whole or in part, using a voice recognition dictation system. Departure Departure Impression: Primary Impression: Asthma exacerbation Disposition: 01 HOME, SELF-CARE Condition: STABLE Referrals: Meagan ALVAREZ MD (PCP) Patient Instructions: Asthma, Adult Additional Instructions: Home medications as previously prescribed. Nebulizer treatments as prescribed. Drink plenty of water to keep herself hydrated. If symptoms persist follow-up with primary care physician in 2-3 days for reevaluation sooner with any concerns. GALINDO DO APRN Sep 20, 2018 16:37
[2018-09-20] MEDS ORDERED: INSU100C SQ (23:48)
[2018-09-20] MEDS ORDERED: INSU100V8 SQ (23:48)
[2018-09-23] MEDS ORDERED: DOXY100T PO (08:21)
[2018-09-23] MEDS ORDERED: WARF10TA45 PO (08:21)
[2018-10-22] MEDS ORDERED: WARF10TA45 PO (08:55)
[2019-03-11] MEDS ORDERED: ORPH100T PO (23:32)
[2019-03-12] MEDS ORDERED: INSU100I35 SQ (02:06)
[2019-03-12] MEDS ORDERED: RANI-376 PO (02:06)
[2019-03-12] MEDS ORDERED: INSU100I27 SQ (02:06)
[2019-03-12] MEDS ORDERED: WARF10TA40 PO (03:18)
[2019-03-13] MEDS ORDERED: HYDR-3135 PO (08:33)
== END 2018-09-20 17:05 | disposition home or self-care (01) ==
LOC: ER 15:54
DX: J45.901 Unspecified asthma with (acute) exacerbation (principal); E11.9 Type 2 diabetes mellitus without complications; I10 Essential (primary) hypertension; G43.909 Migraine, unspecified, not intractable, without status migrainosus; Z86.718 Personal history of other venous thrombosis and embolism; Z88.0 Allergy status to penicillin; Z88.2 Allergy status to sulfonamides; Z88.4 Allergy status to anesthetic agent; Z88.5 Allergy status to narcotic agent; Z91.041 Radiographic dye allergy status; Z88.8 Allergy status to other drugs, medicaments and biological substances
CPT/HCPCS: 94640; 99283; J7620

== ENCOUNTER 2018-10-15 05:31 | Emergency (ER) | payer BC, OTHER ==
[~2018-10-15] VITALS: Ht 177.8 cm; Wt 95.3 kg
[~2018-10-15 05:31] MED LIST changes: +INSU100C SQ; +INSU100V8 SQ; -MONT10TA49 PO; +MONT10TA6 PO; +PANT40TA5 PO; -PANT40TA77 PO
[2018-10-15] MEDS ORDERED: IV NORMAL SALINE 1000ML BAG 1,000 ML IV SCH (06:00)
[2018-10-15] MEDS ORDERED: MORPHINE SULFATE 4 MG/ML VIAL. IV/SQ PRN (06:00)
--- NOTE | 2018-10-15 06:04 | PHYS DOC ---
Past Medical History Past Medical History: Asthma, Diabetes-Type II, DVT, Hypertension, Migraines, Other Additional Past Medical Histor: asthma, PE, chronic back/abdominal pain (BRIELLE SUGGS Jr., DO) Past Surgical History: Appendectomy, Cholecystectomy, Hysterectomy, Other Additional Past Surgical Histo: bilateral cataract, bilater shoulder, hernia x7 ; colon; (BRIELLE SUGGS Jr., DO) Alcohol Use: None Drug Use: None (BRIELLE SUGGS Jr., DO) Adult General Chief Complaint Chief Complaint: CHEST PAIN HPI HPI Patient is a 68-year-old female who presents with complaint of sided posterior chest wall pain that she describes as pleuritic in nature. She states the pain woke her up at about 3:00 this morning. She states that this is very similar to when she has had blood clots in the past. Patient states she is on Coumadin and has been on Coumadin since 1995. She rates pain at a 10 out of 10. She states that the pain is worsened with deep breathing. She states that nothing improves his symptoms. (BRIELLE SUGGS Jr., DO) Review of Systems Review of Systems Constitutional: Denies fever or chills [] Respiratory: Denies cough or shortness of breath [] Cardiovascular: No additional information not addressed in HPI [] GI: Denies abdominal pain, nausea, vomiting or diarrhea [] Musculoskeletal: Complains of right upper back pain [] All other systems were reviewed and found to be within normal limits, except as documented in this note. (BRIELLE SUGGS Jr., DO) Current Medications Current Medications Current Medications Medications (Trade) Dose Ordered Sig/Irish Start Time Stop Time Status Last Admin Dose Admin Morphine Sulfate (Morphine Sulfate) 4 mg PRN Q15MIN PRN 10/15/18 06:00 10/16/18 05:59 10/15/18 06:51 4 MG Sodium Chloride 1,000 ml @ 1,000 mls/hr Q1H 10/15/18 06:00 10/15/18 06:59 DC 10/15/18 06:51 1,000 MLS/HR (CHAO HOUSE DO) Allergies Allergies Allergies Coded Allergies Type Severity Reaction Last Updated Verified Penicillins Allergy Severe itching, dry mouth, tongue swells 01/24/18 Yes Sulfa (Sulfonamide Antibiotics) Allergy Intermediate ITCHING DRY MOUTH, hives/ swelling 12/16/15 Yes fentanyl Allergy Intermediate 12/16/15 Yes hydromorphone HCl Allergy Intermediate MORPHINE OK 12/16/15 Yes methylprednisolone Allergy Intermediate RED MAN SYNDROME 10/11/16 Yes prednisone Allergy Intermediate RED MED SYNDROME 10/11/16 Yes gluten Allergy Mild bloating 04/18/17 Yes I S O L A T I O N *CONTACT* Allergy Unknown 02/04/17 Yes oxycodone HCl Adverse Reaction Intermediate "i FEEL LIKE I HAVE WORMS IN ME" Yes (CHAO HOUSE DO) Physical Exam Physical Exam Constitutional: Well developed, well nourished, no acute distress, non-toxic appearance. [] HENT: Normocephalic, atraumatic, bilateral external ears normal, oropharynx moist, no oral exudates, nose normal. [] Eyes: PERRLA, EOMI, conjunctiva normal, no discharge. [] Neck: Normal range of motion, no tenderness, supple, no stridor. [] Cardiovascular: Regular rate and rhythm[] Lungs & Thorax: Bilateral breath sounds clear to auscultation [] Abdomen: Bowel sounds normal, soft, no tenderness. [] Skin: Warm, dry, no erythema, no rash. [] Extremities: No tenderness, no cyanosis, no clubbing, ROM intact, no edema. [] Neurologic: Alert and oriented X 3, no focal deficits noted. [] (BREILLE SUGGS Jr. DO) Current Patient Data Vital Signs Vital Signs Date Time Temp Pulse Resp B/P (MAP) Pulse Ox O2 Delivery O2 Flow Rate FiO2 10/15/18 06:51 18 96 Room Air 10/15/18 05:34 98.4 89 181/80 (113) 98.4 (CHAO HOUSE DO) Lab Values Laboratory Tests Test 10/15/18 06:45 White Blood Count 7.4 x10^3/uL (4.0-11.0) Red Blood Count 4.62 x10^6/uL (3.50-5.40) Hemoglobin 13.1 g/dL (12.0-15.5) Hematocrit 39.1 % (36.0-47.0) Mean Corpuscular Volume 85 fL (79-100) Mean Corpuscular Hemoglobin 28 pg (25-35) Mean Corpuscular Hemoglobin Concent 33 g/dL (31-37) Red Cell Distribution Width 14.5 % (11.5-14.5) Platelet Count 313 x10^3/uL (140-400) Neutrophils (%) (Auto) 47 % (31-73) Lymphocytes (%) (Auto) 40 % (24-48) Monocytes (%) (Auto) 8 % (0-9) Eosinophils (%) (Auto) 4 % (0-3) H Basophils (%) (Auto) 1 % (0-3) Neutrophils # (Auto) 3.4 x10^3uL (1.8-7.7) Lymphocytes # (Auto) 2.9 x10^3/uL (1.0-4.8) Monocytes # (Auto) 0.6 x10^3/uL (0.0-1.1) Eosinophils # (Auto) 0.3 x10^3/uL (0.0-0.7) Basophils # (Auto) 0.1 x10^3/uL (0.0-0.2) Prothrombin Time 21.2 SEC (11.7-14.0) H Prothrombin Time INR 1.9 (0.8-1.1) H D-Dimer (Elaina) 0.54 ug/mlFEU (0.00-0.50) H Sodium Level 132 mmol/L (136-145) L Potassium Level 4.7 mmol/L (3.5-5.1) Chloride Level 94 mmol/L (98-107) L Carbon Dioxide Level 27 mmol/L (21-32) Anion Gap 11 (6-14) Blood Urea Nitrogen 15 mg/dL (7-20) Creatinine 0.8 mg/dL (0.6-1.0) Estimated GFR (Cockcroft-Gault) 71.5 BUN/Creatinine Ratio 19 (6-20) Glucose Level 212 mg/dL (70-99) H Calcium Level 9.5 mg/dL (8.5-10.1) Magnesium Level 1.6 mg/dL (1.8-2.4) L Total Bilirubin 0.3 mg/dL (0.2-1.0) Aspartate Amino Transferase (AST) 32 U/L (15-37) Alanine Aminotransferase (ALT) 30 U/L (14-59) Alkaline Phosphatase 118 U/L (46-116) H Troponin I Quantitative < 0.017 ng/mL (0.000-0.055) SZ-Eqa-Q-Type Natriuretic Peptide 195 pg/mL (0-124) H Total Protein 6.9 g/dL (6.4-8.2) Albumin 3.1 g/dL (3.4-5.0) L Albumin/Globulin Ratio 0.8 (1.0-1.7) L Laboratory Tests 10/15/18 06:45 Laboratory Tests 10/15/18 06:45 (CHAO HOUSE DO) EKG EKG [] (BRIELLE SUGGS Jr., DO) EKG EKG: Normal sinus rhythm rate of [address]-T changes (CHAO HOUSE DO) Radiology/Procedures Radiology/Procedures [] (BRIELLE SUGGS Jr., DO) Course & Med Decision Making Course & Med Decision Making Pertinent Labs and Imaging studies reviewed. (See chart for details) Patient moved to room upon arrival was evaluated by your medical staff after which an IV was established and blood work drawn. At this time patient's workup is pending and patient is being signed out to the oncoming ER physician at 6:00 AM. (BRIELLE SUGGS Jr., DO) Course & Med Decision Making ED course: Evaluation reveals a 68-year-old female with posterior chest wall pain. She has a history of pulmonary emboli. Her INR is therapeutic today and her d-dimer is not significantly elevated I do not think this warrants a CT PE protocol. I believe most of her symptoms are related to pleurisy. She is safe for discharge home at this time. (CHAO HOUSE DO) Dragon Disclaimer Dragon Disclaimer This electronic medical record was generated, in whole or in part, using a voice recognition dictation system. (BRIELLE SUGGS Jr., DO) Departure Departure Impression: Primary Impression: Non-cardiac chest pain Additional Impression: Pleuritic chest pain Disposition: HOME, SELF-CARE Condition: IMPROVED Referrals: Meagan ALVAREZ MD (PCP) Patient Instructions: Pleurisy Additional Instructions: Follow with her primary care doctor in the next 2-3 days for recheck. Return to the emergency department with any new or concerning symptoms Scripts Meloxicam (MOBIC) 15 Mg Tablet 1 TAB PO DAILY, #30 TAB 1 Refill Prov: CHAO HOUSE DO 10/15/18 Problem Qualifiers BRIELLE SUGGS Jr. DO Oct 15, 2018 06:04 CHAO HOUSE DO Oct 15, 2018 07:55
[2018-10-15 06:54] LABS: BASO # 0.1 x10^3/uL (0.0-0.2); BASO % 1 % (0-3); EOS # 0.3 x10^3/uL (0.0-0.7); EOS % 4 % (0-3); HEMATOCRIT 39.1 % (36.0-47.0); HEMOGLOBIN 13.1 g/dL (12.0-15.5); LYMPH # 2.9 x10^3/uL (1.0-4.8); LYMPH % 40 % (24-48); MEAN CORPUSCULAR HEMOGLOBIN 28 pg (25-35); MEAN CORPUSCULAR HGB CONC 33 g/dL (31-37); MEAN CORPUSCULAR VOLUME 85 fL (79-100); MONO # 0.6 x10^3/uL (0.0-1.1); MONO % 8 % (0-9); NEUT # 3.4 x10^3uL (1.8-7.7); NEUT % 47 % (31-73); PLATELET COUNT 313 x10^3/uL (140-400); RED BLOOD COUNT 4.62 x10^6/uL (3.50-5.40); RED CELL DISTRIBUTION WIDTH 14.5 % (11.5-14.5); WHITE BLOOD COUNT 7.4 x10^3/uL (4.0-11.0)
[2018-10-15 07:08] LABS: CALCIUM 9.5 mg/dL (8.5-10.1); CREATININE 0.8 mg/dL (0.6-1.0); GFR 71.5
[2018-10-15 07:09] LABS: POTASSIUM 4.7 mmol/L (3.5-5.1)
[2018-10-15 07:14] LABS: ALBUMIN 3.1 g/dL (3.4-5.0); ALBUMIN/GLOBULIN RATIO 0.8 (1.0-1.7); MAGNESIUM 1.6 mg/dL (1.8-2.4); TOTAL BILIRUBIN 0.3 mg/dL (0.2-1.0); TOTAL PROTEIN 6.9 g/dL (6.4-8.2)
[2018-10-15 07:27] LABS: D-DIMER 0.54 ug/mlFEU (0.00-0.50); PROTHROMBIN TIME PATIENT 21.2 SEC (11.7-14.0)
[2018-10-15] MEDS ORDERED: MELO15TA6 PO (07:54)
--- NOTE | 2018-10-15 08:06 | RAD ---
PORTABLE CHEST 1V History: Chest pain, shortness of air Comparison: September 20, 2018 Findings: There are again bilateral shoulder arthroplasties. There is no infiltrate, pleural fluid, pneumothorax. There is again small granuloma mid left hemithorax. Heart size is stable, within normal limits. Impression: 1. No acute radiographic abnormality is identified. Electronically signed by: Ronald Flores MD (10/15/2018 8:03 AM) [id number]
[2018-10-15 08:10] VITALS: BP 141/73
--- NOTE | 2018-10-15 14:34 | EKG ---
[facility] [address] [place] [address] Test Date: 2018-10-15 Test Time: 05:40:20 Pat Name: ELY CARDOZA Department: Room: Gender: F Implementation Coordinator: GLENNA : 1950 Requested By: BRIELLE SUGGS Order Number: [id number] Reading MD: Titus Jose MD Measurements Intervals [place] Rate: 87 P: 54 UT: 182 QRS: -32 QRSD: 86 T: 80 QT: 340 QTc: 415 Interpretive Statements SINUS RHYTHM NON-SPECIFIC ST/T CHANGES Electronically Signed On 10-21-2018 10:26:06 DYE OPERATOR by Titus Jose MD
[2018-10-22] MEDS ORDERED: WARF10TA45 PO (08:55)
== END 2018-10-15 08:27 | disposition home or self-care (01) ==
LOC: ER 05:31
DX: R07.81 Pleurodynia (principal); M54.6 Pain in thoracic spine; J45.909 Unspecified asthma, uncomplicated; E11.9 Type 2 diabetes mellitus without complications; G43.909 Migraine, unspecified, not intractable, without status migrainosus; I10 Essential (primary) hypertension; Z86.718 Personal history of other venous thrombosis and embolism; Z90.89 Acquired absence of other organs; Z90.49 Acquired absence of other specified parts of digestive tract; Z90.710 Acquired absence of both cervix and uterus; Z88.0 Allergy status to penicillin; Z88.2 Allergy status to sulfonamides; Z88.5 Allergy status to narcotic agent; Z88.8 Allergy status to other drugs, medicaments and biological substances; Z91.041 Radiographic dye allergy status
CPT/HCPCS: 36415; 71045; 80053; 83735; 83880; 84484; 85025; 85379; 85610; 93005; 96361; 96374; 99284; J2270; J7030

== ENCOUNTER 2018-10-21 15:07 | Emergency (ER) | payer BC, OTHER ==
[~2018-10-21] VITALS: Ht 165.1 cm; Wt 126.1 kg
[~2018-10-21 15:07] MED LIST changes: +MELO15TA6 PO
[2018-10-21 15:17] VITALS: BP 140/66
--- NOTE | 2018-10-21 15:37 | PHYS DOC ---
Past Medical History Past Medical History: Asthma, Diabetes-Type II, DVT, Hypertension, Migraines, Other Additional Past Medical Histor: asthma, PE, chronic back/abdominal pain Past Surgical History: Appendectomy, Cholecystectomy, Hysterectomy, Other Additional Past Surgical Histo: bilateral cataract, bilater shoulder, hernia x7 ; colon; Alcohol Use: None Drug Use: None Adult General Chief Complaint Chief Complaint: ASTHMA HPI HPI Patient is a 68 year old female with history of hypertension, diabetes type 2, cholesterol, asthma with wheezing and shortness of breath. She states she has tried using her inhaler with no relief. Denies any fever. She states she just came from the doctor's office to be of evaluated for PE rule out, she states her workup was negative but unfortunately they did not have breathing treatments to give her. Review of Systems Review of Systems Constitutional: Denies fever or chills [] Eyes: Denies change in visual acuity, redness, or eye pain [] HENT: Denies nasal congestion or sore throat [] Respiratory: Reports cough, wheezing, shortness of breath Cardiovascular: No additional information not addressed in HPI [] GI: Denies abdominal pain, nausea, vomiting, bloody stools or diarrhea [] : Denies dysuria or hematuria [] Musculoskeletal: Denies back pain or joint pain [] Integument: Denies rash or skin lesions [] Neurologic: Denies headache, focal weakness or sensory changes [] All other systems were reviewed and found to be within normal limits, except as documented in this note. Current Medications Current Medications Current Medications Medications (Trade) Dose Ordered Sig/Irish Start Time Stop Time Status Last Admin Dose Admin Albuterol/ Ipratropium (Duoneb) 3 ml 1X ONCE 10/21/18 15:45 10/21/18 15:46 DC 10/21/18 15:39 3 ML Diphenhydramine HCl (Benadryl) 50 mg 1X ONCE 10/21/18 15:45 10/21/18 15:46 DC 10/21/18 15:53 50 MG Methylprednisolone Sodium Succinate (SOLU-Medrol 125MG VIAL) 125 mg 1X ONCE 10/21/18 15:45 10/21/18 15:46 DC 10/21/18 15:54 125 MG Allergies Allergies Allergies Coded Allergies Type Severity Reaction Last Updated Verified Penicillins Allergy Severe itching, dry mouth, tongue swells 01/24/18 Yes Sulfa (Sulfonamide Antibiotics) Allergy Intermediate ITCHING DRY MOUTH, hives/ swelling 12/16/15 Yes fentanyl Allergy Intermediate 12/16/15 Yes hydromorphone HCl Allergy Intermediate MORPHINE OK 12/16/15 Yes methylprednisolone Allergy Intermediate RED MAN SYNDROME 10/11/16 Yes prednisone Allergy Intermediate RED MED SYNDROME 10/11/16 Yes gluten Allergy Mild bloating 04/18/17 Yes I S O L A T I O N *CONTACT* Allergy Unknown 02/04/17 Yes oxycodone HCl Adverse Reaction Intermediate "i FEEL LIKE I HAVE WORMS IN ME" Yes Physical Exam Physical Exam Constitutional: Well developed, well nourished, no acute distress, non-toxic appearance. [] HENT: Normocephalic, atraumatic, bilateral external ears normal, oropharynx moist, no oral exudates, nose normal. [] Eyes: PERRLA, EOMI, conjunctiva normal, no discharge. [] Neck: Normal range of motion, no tenderness, supple, no stridor. [] Cardiovascular:Heart rate regular rhythm, no murmur [] Lungs & Thorax: Patient is wheezing throughout her lung bases. Abdomen: Bowel sounds normal, soft, no tenderness, no masses, no pulsatile masses. [] Skin: Warm, dry, no erythema, no rash. [] Back: No tenderness, no CVA tenderness. [] Extremities: No tenderness, no cyanosis, no clubbing, ROM intact, no edema. [] Neurologic: Alert and oriented X 3, normal motor function, normal sensory function, no focal deficits noted. [] Psychologic: Affect normal, judgement normal, mood normal. [] Current Patient Data Vital Signs Vital Signs Date Time Temp Pulse Resp B/P (MAP) Pulse Ox O2 Delivery O2 Flow Rate FiO2 10/21/18 15:41 Room Air 10/21/18 15:17 97.8 102 22 140/66 (90) 99 97.8 EKG EKG [] Radiology/Procedures Radiology/Procedures [] Course & Med Decision Making Course & Med Decision Making Pertinent Labs and Imaging studies reviewed. (See chart for details) This is a 68-year-old female patient presenting to the ED today with asthma exacerbation symptoms. Patient was given a DuoNeb treatment, Solu-Medrol, and Benadryl. Lungs have cleared up, she is no longer wheezing, she states her breathing is back to baseline, O2 sats of remained above 98% on room air. She was discharged to home. She already has breathing treatments for home use. She has good follow-up. She states she does not take oral prednisone. Dragon Disclaimer Dragon Disclaimer This electronic medical record was generated, in whole or in part, using a voice recognition dictation system. Departure Departure Impression: Primary Impression: Acute asthma exacerbation Disposition: HOME, SELF-CARE Condition: STABLE Referrals: Meagan ALVAREZ MD (PCP) follow up next week Patient Instructions: Asthma, Adult, [id number] Additional Instructions: You were evaluated in the emergency room for asthma exacerbation. Use the prescribed medications as ordered. Follow-up with your doctor in the next 1-2 weeks. Problem Qualifiers Primary Impression: Acute asthma exacerbation Asthma severity: mild Asthma persistence: intermittent Qualified Codes: J45.21 - Mild intermittent asthma with (acute) exacerbation HEIDI BEACH APRN Oct 21, 2018 15:37
[2018-10-21] MEDS ORDERED: diphenhydrAMINE HCL 25 MG CAPSULE PO ONE (15:45)
[2018-10-21] MEDS ORDERED: methylPREDNISolone SOD SUCC PF 125 MG/2 ML VIAL. IM ONE (15:45)
[2018-10-21] MEDS ORDERED: IPRATRPIUM/ALBUTEROL 0.5/2.5MG 3 ML NEBU. NEB ONE (15:45)
[2018-10-22] MEDS ORDERED: WARF10TA45 PO (08:55)
== END 2018-10-21 16:09 | disposition home or self-care (01) ==
LOC: ER 15:07
DX: J45.21 Mild intermittent asthma with (acute) exacerbation (principal); I10 Essential (primary) hypertension; E11.9 Type 2 diabetes mellitus without complications; G43.909 Migraine, unspecified, not intractable, without status migrainosus; J45.909 Unspecified asthma, uncomplicated; G89.29 Other chronic pain; Z86.718 Personal history of other venous thrombosis and embolism; Z90.49 Acquired absence of other specified parts of digestive tract; Z90.89 Acquired absence of other organs; Z90.710 Acquired absence of both cervix and uterus; Z98.890 Other specified postprocedural states; Z88.0 Allergy status to penicillin; Z88.4 Allergy status to anesthetic agent; Z88.5 Allergy status to narcotic agent; Z88.2 Allergy status to sulfonamides; Z88.8 Allergy status to other drugs, medicaments and biological substances; Z91.041 Radiographic dye allergy status
CPT/HCPCS: 94640; 96372; 99283; J2930; J7620; Q0163

== ENCOUNTER 2018-10-21 21:52 | Inpatient (IN) | payer BC, OTHER ==
[~2018-10-21] VITALS: Ht 165.1 cm; Wt 127.1 kg
--- NOTE | 2018-10-21 22:58 | PHYS DOC ---
Past Medical History Past Medical History: Asthma, Diabetes-Type II, DVT, Hypertension, Migraines, Other Additional Past Medical Histor: asthma, PE, chronic back/abdominal pain (HEIDI BEACH APRN) Past Surgical History: Appendectomy, Cholecystectomy, Hysterectomy, Other Additional Past Surgical Histo: bilateral cataract, bilater shoulder, hernia x7 ; colon; (HEIDI BEACH APRN) Alcohol Use: None Drug Use: None (HEIDI BEACH APRN) Adult General Chief Complaint Chief Complaint: ASTHMA HPI HPI Patient is a 68 year old female with a history of diabetes type 2, hypertension , asthma, who presents to the ED today complaining of cough, wheezing, shortness of breath this evening. Patient was seen by the PCP early this morning for DVT rule out, she states her workup was negative, she came to the ED around 4 PM for asthma exacerbation, we gave her breathing treatments Solu- Medrol and Benadryl, she felt better and she was discharged. She presents tonight stating her symptoms began this evening. She states she's been unable to obtain any relief with her home nebulizer treatments. (HEIDI BEACH APRN) Review of Systems Review of Systems Constitutional: Denies fever or chills [] Eyes: Denies change in visual acuity, redness, or eye pain [] HENT: Denies nasal congestion or sore throat [] Respiratory: Reports cough, wheezing, shortness of breath Cardiovascular: No additional information not addressed in HPI [] GI: Denies abdominal pain, nausea, vomiting, bloody stools or diarrhea [] : Denies dysuria or hematuria [] Musculoskeletal: Denies back pain or joint pain [] Integument: Denies rash or skin lesions [] Neurologic: Denies headache, focal weakness or sensory changes [] ] All other systems were reviewed and found to be within normal limits, except as documented in this note. (HEIDI BEACH APRN) Allergies Allergies Allergies Coded Allergies Type Severity Reaction Last Updated Verified Penicillins Allergy Severe itching, dry mouth, tongue swells 01/24/18 Yes Sulfa (Sulfonamide Antibiotics) Allergy Intermediate ITCHING DRY MOUTH, hives/ swelling 12/16/15 Yes fentanyl Allergy Intermediate 12/16/15 Yes hydromorphone HCl Allergy Intermediate MORPHINE OK 12/16/15 Yes methylprednisolone Allergy Intermediate RED MAN SYNDROME 10/11/16 Yes prednisone Allergy Intermediate RED MED SYNDROME 10/11/16 Yes gluten Allergy Mild bloating 04/18/17 Yes I S O L A T I O N *CONTACT* Allergy Unknown 02/04/17 Yes oxycodone HCl Adverse Reaction Intermediate "i FEEL LIKE I HAVE WORMS IN ME" Yes (CHRISTI VILLAGRAN DO) Physical Exam Physical Exam Constitutional: Well developed, well nourished, no acute distress, non-toxic appearance. [] HENT: Normocephalic, atraumatic, bilateral external ears normal, oropharynx moist, no oral exudates, nose normal. [] Eyes: PERRLA, EOMI, conjunctiva normal, no discharge. [] Neck: Normal range of motion, no tenderness, supple, no stridor. [] Cardiovascular:Heart rate regular rhythm, no murmur [] Lungs & Thorax: Patient appears short of breath, scattered wheezing throughout her lung bases. Abdomen: Bowel sounds normal, soft, no tenderness, no masses, no pulsatile masses. [] Skin: Warm, dry, no erythema, no rash. [] Back: No tenderness, no CVA tenderness. [] Extremities: No tenderness, no cyanosis, no clubbing, ROM intact, no edema. [] Neurologic: Alert and oriented X 3, normal motor function, normal sensory function, no focal deficits noted. [] Psychologic: Affect normal, judgement normal, mood normal. [] (HEIDI BEACH APRN) Current Patient Data Vital Signs Vital Signs Date Time Temp Pulse Resp B/P (MAP) Pulse Ox O2 Delivery O2 Flow Rate FiO2 10/21/18 22:23 96 Room Air 10/21/18 22:11 99.1 119 26 151/88 (109) 99.1 (CHRISTI VILLAGRAN DO) EKG EKG [] (HEIDI BEACH APRN) Radiology/Procedures Radiology/Procedures [] (HEIDI BEACH APRN) Course & Med Decision Making Course & Med Decision Making Pertinent Labs and Imaging studies reviewed. (See chart for details) This is a 68-year-old female patient with history of asthma presenting today with asthma exacerbation symptoms. She was seen in the ED around 4 PM for same complaints, she was given Solu-Medrol, DuoNeb treatment and Benadryl, she was discharged, she states symptoms returned this evening. Interestingly she was seen by the PCP as needed this morning for DVT workup which she states was negative. Spoke Dr. Estrella who accepted patient for admission Dr. Estrella requested we never give this patient 125mg of Solumedrol because it makes her blood glucose as high as 700 (HEIDI BEACH APRN) Dragon Disclaimer Dragon Disclaimer This electronic medical record was generated, in whole or in part, using a voice recognition dictation system. (HEIDI BEACH APRN) Departure Departure Impression: Primary Impression: Acute asthma exacerbation Disposition: ADMITTED INPATIENT Condition: STABLE Referrals: Meagan ALVAREZ MD (PCP) Attending Signature Attending Signature I have reviewed the PA/AIR TWISTER WINDER's note and plan of care. I was available for consultation as needed during the patient's visit in the emergency department. I agree with the clinical impression, plan, and disposition. (CHRISTI VILLAGRAN DO) Problem Qualifiers Primary Impression: Acute asthma exacerbation Asthma severity: mild Asthma persistence: persistent Qualified Codes: J45.31 - Mild persistent asthma with (acute) exacerbation HEIDI BEACH APRN Oct 21, 2018 22:58 CHRISTI VILLAGRAN DO Oct 22, 2018 05:21
[2018-10-21] MEDS ORDERED: ACETAMINOPHEN 325 MG TABLET. PO PRN (23:00)
[2018-10-21] MEDS ORDERED: IPRATRPIUM/ALBUTEROL 0.5/2.5MG 3 ML NEBU. NEB ONE (23:00)
[2018-10-21] MEDS ORDERED: ONDANSETRON PF 4 MG/2 ML VIAL. IV PRN (23:00)
[2018-10-21] MEDS ORDERED: diphenhydrAMINE 50 MG/ML VIAL IVP ONE (23:00)
[2018-10-21] MEDS ORDERED: MORPHINE SULFATE 2 MG/ML VIAL. IV PRN (23:00)
[2018-10-21] MEDS ORDERED: methylPREDNISolone SOD SUCC PF 125 MG/2 ML VIAL. IV ONE (23:00)
--- NOTE | 2018-10-21 23:18 | RAD ---
PORTABLE CHEST 1V History: Shortness of air, asthma Comparison: 10/15/2018 Findings: AP view of the chest is submitted. There are again bilateral shoulder arthroplasties. Heart size is stable, within normal limits. There is atherosclerotic calcification near the aortic arch. There is no infiltrate, pleural fluid, pneumothorax. Impression: 1. No acute radiographic abnormality is identified. Electronically signed by: Ronald Flores MD (10/21/2018 11:15 PM) [facility]
[2018-10-21 23:42] LABS: BASO % 0 % (0-3); EOS % 0 % (0-3); HEMATOCRIT 40.8 % (36.0-47.0); HEMOGLOBIN 13.2 g/dL (12.0-15.5); LYMPH # 1.7 x10^3/uL (1.0-4.8); LYMPH % 18 % (24-48); MEAN CORPUSCULAR HEMOGLOBIN 29 pg (25-35); MEAN CORPUSCULAR HGB CONC 32 g/dL (31-37); MEAN CORPUSCULAR VOLUME 89 fL (79-100); MONO # 0.1 x10^3/uL (0.0-1.1); MONO % 1 % (0-9); NEUT # 7.8 x10^3uL (1.8-7.7); NEUT % 81 % (31-73); PLATELET COUNT 354 x10^3/uL (140-400); RED BLOOD COUNT 4.61 x10^6/uL (3.50-5.40); RED CELL DISTRIBUTION WIDTH 14.8 % (11.5-14.5); WHITE BLOOD COUNT 9.6 x10^3/uL (4.0-11.0)
[2018-10-21 23:54] LABS: CALCIUM 8.9 mg/dL (8.5-10.1); CREATININE 1.7 mg/dL (0.6-1.0)
[2018-10-21 23:56] LABS: AMPHETAMINE/METHAMPHETAMINE NEG (NEG); BARBITURATES NEG (NEG); BENZODIAZEPINES NEG (NEG); CANNABINOIDS NEG (NEG); COCAINE NEG (NEG); METHADONE NEG (NEG); OPIATES NEG (NEG); PHENCYCLIDINE NEG (NEG)
[2018-10-21 23:57] LABS: ALBUMIN 3.3 g/dL (3.4-5.0); ALBUMIN/GLOBULIN RATIO 0.8 (1.0-1.7); MAGNESIUM 1.9 mg/dL (1.8-2.4); TOTAL BILIRUBIN 0.3 mg/dL (0.2-1.0); TOTAL PROTEIN 7.3 g/dL (6.4-8.2)
[2018-10-22] VITALS (7 sets, daily range): BP systolic 124–162; BP diastolic 58–86
[2018-10-22] MEDS ORDERED: DEXTROSE 50% 25 GM / 50ML DISP.SYRIN. IV PRN ×2 (01:00→06:30)
[2018-10-22] MEDS: INSULIN GLARGINE 300 UNITS/3 ML INSULN.PEN. SQ SCH ×3 (01:22→20:29)
[2018-10-22] MEDS ORDERED: INSULIN LISPRO 300 UNITS/3 ML INSULN.PEN. SQ ONE ×3 (01:30→19:00)
[2018-10-22] MEDS ORDERED: HYDROcodone/APAP 5/325MG 1 TAB TABLET PO PRN (01:30)
--- NOTE | 2018-10-22 07:05 | EKG ---
[facility] [address] [place] [address] Test Date: 2018-10-22 Test Time: 00:15:04 Pat Name: ELY CARDOZA Department: Room: 648 1 Gender: F Hand Plug Shaper: : [id number] Requested By: HEIDI BEACH Order Number: [id number] Reading MD: Titus Jose MD Measurements Intervals Savage Rate: 110 P: 63 WA: 186 QRS: -24 QRSD: 90 T: 64 QT: 318 QTc: 436 Interpretive Statements SINUS TACHYCARDIA NON-SPECIFIC ST/T CHANGES Electronically Signed On 10-23-2018 11:34:03 DIRECTOR [employer]ORTS by Titus Jose MD
[2018-10-22] MEDS ORDERED: INSULIN LISPRO 300 UNITS/3 ML INSULN.PEN. SQ SCH (07:30)
[2018-10-22] MEDS ORDERED: diphenhydrAMINE 50 MG/ML VIAL IVP ONE (07:45)
[2018-10-22] MEDS ORDERED: IPRATRPIUM/ALBUTEROL 0.5/2.5MG 3 ML NEBU. NEB SCH (08:00)
[2018-10-22] MEDS: methylPREDNISolone SOD SUCC PF 125 MG/2 ML VIAL. IV SCH ×3 (08:12→21:06)
[2018-10-22] MEDS: INSULIN LISPRO 300 UNITS/3 ML INSULN.PEN. SQ SCH ×5 (08:26→17:47)
[2018-10-22] MEDS ORDERED: WARF10TA45 PO (08:55)
[2018-10-22] MEDS ORDERED: diphenhydrAMINE HCL 25 MG CAPSULE PO PRN (09:00)
[2018-10-22] MEDS ORDERED: NON FORMULARY ITEM (Tiotropium Bromide (Spiriva) 18 MCG) IH SCH (09:00)
--- NOTE | 2018-10-22 09:00 | PDOC ---
PROGRESS NOTES Subjective Subjective Patient reports breathing is some better but still had ALVARADO and does not feel at her baseline yet. Objective Objective Vital Signs Date Time Temp Pulse Resp B/P (MAP) Pulse Ox O2 Delivery O2 Flow Rate FiO2 10/22/18 07:35 91 Room Air 10/22/18 07:00 97.8 97 20 138/60 (86) 97.8 Intake and Output 10/22/18 07:00 Intake Total 2400 ml Output Total 1200 ml Balance 1200 ml Intake Oral 2400 ml Output Urine Total 1200 ml Physical Exam Abdomen: Normal bowel sounds, Soft, No tenderness Heart: Regular rate Extremities: No edema General: Alert, Oriented X3, No acute distress Lungs: Other (BS moderately decreased throughout, no wheezes heard, no cough during exam) Assessment Assessment Problems Medical Problems: (1) Acute asthma exacerbation Status: Acute Plan Plan of Care 1. Asthma with AE - patient without hypoxia on RA, CXR without infiltrate. Received two doses of Solumedrol 125 mg in ED yesterday but does not feel back to baseline today. Continue nebs and Solumedrol at lower dose today. 2. DM2 with hyperglycemia - glucose over 700 last night due to high dose Solumedrol as above. Improving, continue insulins and follow. 3. chronic anxiety - stable 4. chronic pain - stable, continue po pain meds as needed. 5. chronic anticoagulation - continue her usual Coumadin, check INR in AM. 6. HTN - continue home medication. Comment Review of Relevant I have reviewed the following items cameron (where applicable) has been applied. Labs Laboratory Tests Test 10/21/18 23:25 10/21/18 23:40 10/22/18 03:02 10/22/18 07:15 White Blood Count 9.6 x10^3/uL (4.0-11.0) Red Blood Count 4.61 x10^6/uL (3.50-5.40) Hemoglobin 13.2 g/dL (12.0-15.5) Hematocrit 40.8 % (36.0-47.0) Mean Corpuscular Volume 89 fL (79-100) Mean Corpuscular Hemoglobin 29 pg (25-35) Mean Corpuscular Hemoglobin Concent 32 g/dL (31-37) Red Cell Distribution Width 14.8 % (11.5-14.5) Platelet Count 354 x10^3/uL (140-400) Neutrophils (%) (Auto) 81 % (31-73) Lymphocytes (%) (Auto) 18 % (24-48) Monocytes (%) (Auto) 1 % (0-9) Eosinophils (%) (Auto) 0 % (0-3) Basophils (%) (Auto) 0 % (0-3) Neutrophils # (Auto) 7.8 x10^3uL (1.8-7.7) Lymphocytes # (Auto) 1.7 x10^3/uL (1.0-4.8) Monocytes # (Auto) 0.1 x10^3/uL (0.0-1.1) Eosinophils # (Auto) 0.0 x10^3/uL (0.0-0.7) Basophils # (Auto) 0.0 x10^3/uL (0.0-0.2) Sodium Level 131 mmol/L (136-145) Potassium Level 5.0 mmol/L (3.5-5.1) Chloride Level 92 mmol/L (98-107) Carbon Dioxide Level 20 mmol/L (21-32) Anion Gap 19 (6-14) Blood Urea Nitrogen 18 mg/dL (7-20) Creatinine 1.7 mg/dL (0.6-1.0) Estimated GFR (Cockcroft-Gault) 30.0 BUN/Creatinine Ratio 11 (6-20) Glucose Level 749 mg/dL (70-99) Calcium Level 8.9 mg/dL (8.5-10.1) Magnesium Level 1.9 mg/dL (1.8-2.4) Total Bilirubin 0.3 mg/dL (0.2-1.0) Aspartate Amino Transf (AST/SGOT) 21 U/L (15-37) Alanine Aminotransferase (ALT/SGPT) 30 U/L (14-59) Alkaline Phosphatase 176 U/L (46-116) Troponin I Quantitative < 0.017 ng/mL (0.000-0.055) AA-Tpz-U-Type Natriuretic Peptide 196 pg/mL (0-124) Total Protein 7.3 g/dL (6.4-8.2) Albumin 3.3 g/dL (3.4-5.0) Albumin/Globulin Ratio 0.8 (1.0-1.7) Thyroid Stimulating Hormone (TSH) 1.525 uIU/mL (0.358-3.74) Urine Opiates Screen Neg (NEG) Urine Methadone Screen Neg (NEG) Urine Barbiturates Neg (NEG) Urine Phencyclidine Screen Neg (NEG) Urine Amphetamine/Methamphetamine Neg (NEG) Urine Benzodiazepines Screen Neg (NEG) Urine Cocaine Screen Neg (NEG) Urine Cannabinoids Screen Neg (NEG) Urine Ethyl Alcohol Neg (NEG) Glucose (Fingerstick) 523 mg/dL (70-99) 390 mg/dL (70-99) Laboratory Tests Test 10/21/18 23:25 10/21/18 23:40 10/22/18 03:02 10/22/18 07:15 White Blood Count 9.6 x10^3/uL (4.0-11.0) Red Blood Count 4.61 x10^6/uL (3.50-5.40) Hemoglobin 13.2 g/dL (12.0-15.5) Hematocrit 40.8 % (36.0-47.0) Mean Corpuscular Volume 89 fL (79-100) Mean Corpuscular Hemoglobin 29 pg (25-35) Mean Corpuscular Hemoglobin Concent 32 g/dL (31-37) Red Cell Distribution Width 14.8 % (11.5-14.5) Platelet Count 354 x10^3/uL (140-400) Neutrophils (%) (Auto) 81 % (31-73) Lymphocytes (%) (Auto) 18 % (24-48) Monocytes (%) (Auto) 1 % (0-9) Eosinophils (%) (Auto) 0 % (0-3) Basophils (%) (Auto) 0 % (0-3) Neutrophils # (Auto) 7.8 x10^3uL (1.8-7.7) Lymphocytes # (Auto) 1.7 x10^3/uL (1.0-4.8) Monocytes # (Auto) 0.1 x10^3/uL (0.0-1.1) Eosinophils # (Auto) 0.0 x10^3/uL (0.0-0.7) Basophils # (Auto) 0.0 x10^3/uL (0.0-0.2) Sodium Level 131 mmol/L (136-145) Potassium Level 5.0 mmol/L (3.5-5.1) Chloride Level 92 mmol/L (98-107) Carbon Dioxide Level 20 mmol/L (21-32) Anion Gap 19 (6-14) Blood Urea Nitrogen 18 mg/dL (7-20) Creatinine 1.7 mg/dL (0.6-1.0) Estimated GFR (Cockcroft-Gault) 30.0 BUN/Creatinine Ratio 11 (6-20) Glucose Level 749 mg/dL (70-99) Calcium Level 8.9 mg/dL (8.5-10.1) Magnesium Level 1.9 mg/dL (1.8-2.4) Total Bilirubin 0.3 mg/dL (0.2-1.0) Aspartate Amino Transf (AST/SGOT) 21 U/L (15-37) Alanine Aminotransferase (ALT/SGPT) 30 U/L (14-59) Alkaline Phosphatase 176 U/L (46-116) Troponin I Quantitative < 0.017 ng/mL (0.000-0.055) PF-Wsu-P-Type Natriuretic Peptide 196 pg/mL (0-124) Total Protein 7.3 g/dL (6.4-8.2) Albumin 3.3 g/dL (3.4-5.0) Albumin/Globulin Ratio 0.8 (1.0-1.7) Thyroid Stimulating Hormone (TSH) 1.525 uIU/mL (0.358-3.74) Urine Opiates Screen Neg (NEG) Urine Methadone Screen Neg (NEG) Urine Barbiturates Neg (NEG) Urine Phencyclidine Screen Neg (NEG) Urine Amphetamine/Methamphetamine Neg (NEG) Urine Benzodiazepines Screen Neg (NEG) Urine Cocaine Screen Neg (NEG) Urine Cannabinoids Screen Neg (NEG) Urine Ethyl Alcohol Neg (NEG) Glucose (Fingerstick) 523 mg/dL (70-99) 390 mg/dL (70-99) Medications Current Medications Albuterol/ Ipratropium (Duoneb) 3 ml 1X ONCE NEB Last administered on at 22:23; Start 10/21/18 at 23:00; Stop 10/21/18 at 23:01; Status DC Methylprednisolone Sodium Succinate (SOLU-Medrol 125MG VIAL) 60 mg Q8HRS IV Last administered on 10/22/18at 08:12; Start 10/22/18 at 06:00 Diphenhydramine HCl (Benadryl) 25 mg 1X ONCE IVP Last administered on at 00:00; Start 10/21/18 at 23:00; Stop 10/21/18 at 23:01; Status DC Methylprednisolone Sodium Succinate (SOLU-Medrol 125MG VIAL) 60 mg 1X ONCE IV Last administered on 10/21/18at 23:59; Start 10/21/18 at 23:00; Stop 10/21/18 at 23: 01; Status DC Ondansetron HCl (Zofran) 4 mg PRN Q8HRS PRN IV NAUSEA/VOMITING 1ST CHOICE Last administered on 10/22/18at 06:09; Start 10/21/18 at 23:00; Stop 10/22/18 at 22:59 Morphine Sulfate (Morphine Sulfate) 2 mg PRN Q2HR PRN IV SEVERE PAIN; Start 10/21/18 at 23:00; Stop 10/22/18 at 22:59 Acetaminophen (Tylenol) 650 mg PRN Q4HRS PRN PO FEVER; Start 10/21/18 at 23:00; Stop 10/22/18 at 22:59 Albuterol/ Ipratropium (Duoneb) 3 ml RTQID NEB Last administered on 10/22/18at 07 :33; Start 10/22/18 at 08:00; Stop 10/23/18 at 07:59 Insulin Glargine (Lantus) 60 units BID SQ Last administered on 10/22/18at 08:27; Start 10/22/18 at 01:30 Dextrose (Dextrose 50%-Water Syringe) 12.5 gm PRN Q15MIN PRN IV SEE COMMENTS; Start 10/22/18 at 01:00; Stop 10/22/18 at 06:45; Status DC Insulin Human Lispro (HumaLOG) 30 units 1X ONCE SQ Last administered on at 01:23; Start 10/22/18 at 01:30; Stop 10/22/18 at 01:31; Status DC Acetaminophen/ Hydrocodone Bitart (Lortab 5/325) 1 tab PRN Q6HRS PRN PO MODERATE PAIN; Start 10/22/18 at 01:30 Insulin Human Lispro (HumaLOG) 0-9 UNITS TIDWMEALS SQ Last administered on at 08:26; Start 10/22/18 at 08:00 Dextrose (Dextrose 50%-Water Syringe) 12.5 gm PRN Q15MIN PRN IV SEE COMMENTS; Start 10/22/18 at 06:30 Insulin Human Lispro (HumaLOG) 30 units TIDAC SQ Last administered on 10/22/18at 08:25; Start 10/22/18 at 07:30 Diphenhydramine HCl (Benadryl) 25 mg Q8HRS IVP ; Start 10/22/18 at 14:00 Diphenhydramine HCl (Benadryl) 25 mg 1X ONCE IVP Last administered on at 08:12; Start 10/22/18 at 07:45; Stop 10/22/18 at 07:46; Status DC Diphenhydramine HCl (Benadryl) 25 mg PRN Q4HRS PRN PO NAUSEA 2ND CHOICE; Start 10/22/18 at 09:00; Status UNV Famotidine (Pepcid) 20 mg BID PO ; Start 10/22/18 at 09:00; Status UNV Acetaminophen/ Hydrocodone Bitart (Lortab 5/325) 1 tab PRN Q6HRS PRN PO PAIN; Start 10/22/18 at 09:00; Status UNV Albuterol/ Ipratropium (Duoneb) 3 ml QID NEB ; Start 10/22/18 at 09:00; Status UNV Lisinopril (Prinivil) 20 mg DAILY PO ; Start 10/22/18 at 09:00; Status UNV Metoprolol Succinate (Toprol Xl) 25 mg DAILY PO ; Start 10/22/18 at 09:00; Status UNV Fish Oil (Fish Oil) 1,000 mg DAILY PO ; Start 10/22/18 at 09:00; Status UNV Ondansetron HCl (Zofran Odt) 4 mg TID PRN PO NAUSEA/VOMITING; Start 10/22/18 at 09:00; Status UNV Non-Formulary Medication (Duloxetine Hcl (Cymbalta)) 90 mg DAILY PO ; Start 10/22 at 09:00; Status UNV Non-Formulary Medication (Ezetimibe/ Simvastatin (Vytorin 10-10 Mg Tablet)) 1 each HS PO ; Start 10/22/18 at 21:00; Status UNV Non-Formulary Medication (Fluticasone/ Salmeterol (Advair 250-50 Diskus)) 1 each BID94 IH ; Start 10/22/18 at 09:00; Status UNV Non-Formulary Medication (Insulin Glargine,Hum.rec.anlog (Lantus)) 50 unit BID SQ ; Start 10/22/18 at 09:00; Status UNV Non-Formulary Medication (Insulin Lispro (Humalog)) 15 unit TIDWMEALS SQ ; Start 10/22/18 at 12:00; Status UNV Non-Formulary Medication (Linaclotide (Linzess)) 145 mcg DAILY07 PO ; Start 10/23 at 07:00; Status UNV Non-Formulary Medication (Meclizine Hcl ) 1 tab TID PRN PO DIZZINESS; Start 10/22/18 at 09:00; Status UNV Non-Formulary Medication (Meloxicam (Mobic)) 1 tab DAILY PO ; Start 10/22/18 at 09:00; Status UNV Non-Formulary Medication (Montelukast Sodium (Singulair Tablet)) 10 mg HS PO ; Start 10/22/18 at 21:00; Status UNV Non-Formulary Medication (Tiotropium [place] (Spiriva)) 18 mcg DAILY IH ; Start 10/22/18 at 09:00; Status UNV Active Scripts Active Coumadin (Warfarin Sodium) 10 Mg Tablet 1 Tab PO DAILY Mobic (Meloxicam) 15 Mg Tablet 1 Tab PO DAILY Meclizine Hcl 25 Mg Tablet 1 Tab PO TID PRN Pepcid (Famotidine) 20 Mg Tablet 20 Mg PO BID [place] 5-325 Tablet (Acetaminophen/Hydrocodone Bitart) 1 Each Tablet 1 Tab PO PRN Q6HRS PRN Duoneb 0.5-3(2.5) Mg/3 Ml (Albuterol/Ipratropium) 3 Ml Ampul.neb 3 Ml NEB QID Linzess (Linaclotide) 145 Mcg Capsule 145 Mcg PO DAILY07 30 Days Fish Oil 1,000 Mg Capsule (Lillian-3 Fatty Acids/Fish Oil) 1 Each Capsule 1,000 Mg PO DAILY 30 Days Zofran Odt (Ondansetron) 4 Mg Tab.rapdis 4 Mg PO TID PRN Benadryl (Diphenhydramine Hcl) 25 Mg Capsule 25 Mg PO PRN Q4HRS PRN Reported Humalog (Insulin Lispro) 100 Unit/1 Ml Cartridge 15 Unit SQ TIDWMEALS Lantus (Insulin Glargine,Hum.rec.anlog) 100 Unit/1 Ml Vial 50 Unit SQ BID Lisinopril 20 Mg Tablet 1 Tab PO DAILY Metoprolol Succinate ( Xl ) (Metoprolol Succinate) 25 Mg Tab.er.24h 1 Tab PO DAILY Vytorin 10-10 Mg Tablet (Ezetimibe/Simvastatin) 1 Each Tablet 1 Each PO HS Xopenex Hfa (Levalbuterol Tartrate) 15 Gm Hfa.aer.ad 15 Gm IH PRN BID PRN Spiriva (Tiotropium [place]) 18 Mcg Cap.w.dev 18 Mcg IH DAILY Advair 250-50 Diskus (Fluticasone/Salmeterol) 1 Each Disk.w.dev 1 Each IH BID94 Cymbalta (Duloxetine Hcl) 60 Mg Capsule.dr 90 Mg PO DAILY Singulair Tablet (Montelukast Sodium) 10 Mg Tablet 10 Mg PO HS Vitals/I & O Vital Sign - Last 24 Hours 10/21/18 10/21/18 10/22/18 10/22/18 22:11 22:23 01:48 01:57 Temp 99.1 98.1 99.1 98.1 Pulse 119 105 Resp 26 20 B/P (MAP) 151/88 (109) 162/58 (92) Pulse Ox 96 96 92 O2 Delivery Room Air Room Air Room Air Room Air 10/22/18 10/22/18 10/22/18 03:39 07:00 07:35 Temp 98.2 97.8 98.2 97.8 Pulse 110 97 Resp 20 20 B/P (MAP) 158/86 (110) 138/60 (86) Pulse Ox 92 96 91 O2 Delivery Room Air Room Air Room Air Intake and Output 10/21/18 10/21/18 10/22/18 15:00 23:00 07:00 Intake Total 2400 ml Output Total 1200 ml Balance 1200 ml NIKO GIBBONS MD Oct 22, 2018 09:00
[2018-10-22] MEDS ORDERED: MECLIZINE HCL 12.5 MG TABLET. PO PRN (09:15)
--- NOTE | 2018-10-22 09:38 | NUR ---
IP: Pt has a hx of + mrsa screens since 2007 with most recent o n 07/11/18. Pt to be in contact precautions until there are 2 negative screens 7 days apart.
--- NOTE | 2018-10-22 09:48 | HP ---
ADMIT DATE: 10/21/2018 CHIEF COMPLAINT: Shortness of breath. HISTORY OF PRESENT ILLNESS: The patient is a 68-year-old female with a history of asthma. She initially presented to the Emergency Room about 4:00 p.m. on the day of admission, reporting increased wheezing and shortness of breath. She was treated with Solu-Medrol and a breathing treatment and had some improvement in her condition, so she was discharged to home. She returned to the Emergency Department later in the evening of admission, stating that her symptoms had worsened again. Chest x-ray was without infiltrate. The patient was not hypoxic on room air. She was given a second dose of Solu-Medrol and admitted for further care. PAST MEDICAL HISTORY: Asthma; chronic anxiety; diabetes mellitus type 2, insulin-dependent; coronary artery disease; hypertension; GERD; irritable bowel syndrome; history of pulmonary emboli. PAST SURGICAL HISTORY: Appendectomy, breast biopsy, cholecystectomy, cataract removal, hernia repair, tonsillectomy, hysterectomy. ALLERGIES: The patient is allergic to PENICILLIN, SULFA, FENTANYL, GLUTEN, HYDROMORPHONE, METHYLPREDNISOLONE, and OXYCODONE. HOME MEDICATIONS: [place] 5/325 p.r.n., DuoNeb treatments q.i.d., Benadryl 25 mg p.r.n., Cymbalta 90 mg daily, Vytorin 10/10 one daily, famotidine 20 mg b.i.d., Advair 250/50 one puff b.i.d., Lantus insulin 50 units b.i.d., Humalog 15 units t.i.d. a.c., Linzess 145 mcg daily, lisinopril 20 mg daily, meclizine 25 mg p.r.n., meloxicam 15 mg daily, Toprol-XL 25 mg daily, Singulair 10 mg daily, Spiriva 1 puff daily, Coumadin 10 mg daily. FAMILY HISTORY: Noncontributory. SOCIAL HISTORY: The patient is and lives with family members. She does not smoke cigarettes. She does not drink alcohol to excess. REVIEW OF SYSTEMS: The patient denies fever or chills. She denies chest pain or palpitations. She denies abdominal pain, nausea or vomiting. Her mood has been good with her usual medication. Her chronic pain has been stable. She has been taking her Coumadin daily. PHYSICAL EXAMINATION: GENERAL: The patient is alert and oriented x 3, sitting up comfortably in bed, in no acute distress. HEENT: PERRL, EOMI, sclerae clear. Oropharynx: Mucous membranes moist. NECK: Supple, without lymphadenopathy. CHEST: Breath sounds decreased throughout. No wheezes heard. No cough on exam. CARDIOVASCULAR: Regular rhythm without murmur. ABDOMEN: Soft, nontender, normoactive bowel sounds are present. EXTREMITIES: Without edema. ASSESSMENT AND PLAN: 1. Asthma with acute exacerbation. The patient is without hypoxia on room air. Chest x-ray is without acute infiltrate. The patient feels that her symptoms are somewhat improved from yesterday, but she does not feel she is ready to return home today. We will continue Solu-Medrol at a lower dose. Continue nebulized treatments. The patient is advised increased activity level today. 2. Diabetes mellitus type 2 with hyperglycemia. The patient's blood sugar was over 700 last night due to receiving 2 doses of Solu-Medrol 125 mg in the Emergency Department yesterday. Her hyperglycemia is improving with insulin. We will continue her on insulins and follow this. 3. Chronic anxiety. This is stable. Continue home medication. 4. Chronic pain. This is stable. Continue oral pain medication as needed. 5. Chronic anticoagulation. Continue her usual Coumadin, check her INR in the morning. 6. Hypertension. Continue home medications. NIKO GIBBONS MD DR: CECELIA/alyce JOB#: [id number] / [id number] TRENT
[2018-10-22 10:42] LABS: PROTHROMBIN TIME PATIENT 13.6 SEC (11.7-14.0)
--- NOTE | 2018-10-22 11:13 | NUR ---
SW following. Discussed with RN, pt from home with family. RN advised no SW needs at this time. SW will continue to follow.
[2018-10-22] MEDS: IPRATRPIUM/ALBUTEROL 0.5/2.5MG 3 ML NEBU. NEB SCH ×4 (11:26→20:33)
[2018-10-22] MEDS: BUDESONIDE 0.5 MG/2 ML NEBU. NEB SCH ×2 (11:27→20:00)
[2018-10-22] MEDS: OMEGA-3 FATTY ACIDS/FISH OIL 1,000 MG CAPSULE. PO SCH (12:35)
[2018-10-22] MEDS: MELOXICAM 7.5 MG TABLET PO SCH (12:35)
[2018-10-22] MEDS: FAMOTIDINE 20 MG TABLET. PO SCH ×2 (12:35→20:18)
[2018-10-22] MEDS: DULoxetine HCL 30 MG CAPSULE.DR PO SCH (12:35)
[2018-10-22] MEDS: METOPROLOL SUCC 24HR ER 25 MG TAB.ER.24H. PO SCH (12:36)
[2018-10-22] MEDS: LISINOPRIL 20 MG TABLET PO SCH (12:36)
[2018-10-22] MEDS: HYDROcodone/APAP 5/325MG 1 TAB TABLET PO PRN ×2 (12:41→20:18)
[2018-10-22] MEDS: ONDANSETRON ODT 4 MG TAB.RAPDIS. PO PRN ×2 (14:39→23:57)
[2018-10-22] MEDS: diphenhydrAMINE 50 MG/ML VIAL IVP SCH ×2 (14:43→21:06)
[2018-10-22] MEDS ORDERED: WARFARIN 5 MG TABLET. PO SCH (16:00)
[2018-10-22] MEDS ORDERED: EZETIMIBE PO SCH (21:00)
[2018-10-22] MEDS ORDERED: MONTELUKAST SODIUM 10 MG TABLET. PO SCH (21:00)
[2018-10-22] MEDS ORDERED: SIMVASTATIN 10 MG TABLET PO SCH (21:00)
[2018-10-22] MEDS ORDERED: EZETIMIBE 10 MG TABLET. PO SCH (21:00)
[2018-10-22] MEDS ORDERED: SIMVASTATIN PO SCH (21:00)
[2018-10-23] MEDS: HYDROcodone/APAP 5/325MG 1 TAB TABLET PO PRN ×2 (03:24→09:52)
[2018-10-23 03:46] VITALS: BP 169/74
[2018-10-23] MEDS: methylPREDNISolone SOD SUCC PF 125 MG/2 ML VIAL. IV SCH (05:39)
[2018-10-23] MEDS: diphenhydrAMINE 50 MG/ML VIAL IVP SCH (05:39)
[2018-10-23 07:00] VITALS: BP 115/70
[2018-10-23] MEDS ORDERED: NON FORMULARY ITEM (Linaclotide (Linzess) 145 MCG) PO SCH (07:00)
[2018-10-23] MEDS ORDERED: INSULIN LISPRO 300 UNITS/3 ML INSULN.PEN. SQ ONE ×2 (07:45→12:15)
[2018-10-23] MEDS: DULoxetine HCL 30 MG CAPSULE.DR PO SCH (07:58)
[2018-10-23] MEDS: FAMOTIDINE 20 MG TABLET. PO SCH (07:59)
[2018-10-23] MEDS: MELOXICAM 7.5 MG TABLET PO SCH (07:59)
[2018-10-23] MEDS: OMEGA-3 FATTY ACIDS/FISH OIL 1,000 MG CAPSULE. PO SCH (07:59)
[2018-10-23] MEDS: LISINOPRIL 20 MG TABLET PO SCH (07:59)
[2018-10-23] MEDS: INSULIN LISPRO 300 UNITS/3 ML INSULN.PEN. SQ SCH ×4 (08:00→12:00)
[2018-10-23] MEDS: METOPROLOL SUCC 24HR ER 25 MG TAB.ER.24H. PO SCH (08:00)
[2018-10-23] MEDS: BUDESONIDE 0.5 MG/2 ML NEBU. NEB SCH (08:01)
[2018-10-23] MEDS: IPRATRPIUM/ALBUTEROL 0.5/2.5MG 3 ML NEBU. NEB SCH ×2 (08:01→12:00)
[2018-10-23] MEDS: INSULIN GLARGINE 300 UNITS/3 ML INSULN.PEN. SQ SCH (08:03)
--- NOTE | 2018-10-23 08:47 | PDOC ---
PROGRESS NOTES Subjective Subjective Patient reports breathing is better, feels she could go home later today. Objective Objective Vital Signs Date Time Temp Pulse Resp B/P (MAP) Pulse Ox O2 Delivery O2 Flow Rate FiO2 10/23/18 08:02 97 Room Air 10/23/18 08:00 80 115/70 10/23/18 07:00 98.4 20 98.4 10/23/18 04:24 2.0 Intake and Output 10/23/18 07:00 Intake Total 2300 ml Balance 2300 ml Intake Oral 2300 ml # Voids 2 Physical Exam Abdomen: Normal bowel sounds, Soft, No tenderness Heart: Regular rate Extremities: No edema General: Alert, Oriented X3, No acute distress Lungs: Other (BS mildly decreased throughout, no wheezes heard) Assessment Assessment Problems Medical Problems: (1) Acute asthma exacerbation Status: Acute Plan Plan of Care 1. AE asthma - much improved, appears at baseline. Home today on her usual inhalers and nebs. No hypoxia. 2. DM2 - glucose continues significantly elevated due to Solumedrol. Continue insulins. 3. anticoagulation - INR is normal, patient denies missing doses of her Coumadin and is usually therapeutic on 10mg daily. Continue her usual dose and follow. 4. chronic anxiety - stable, continue home medication. 5. HTN - controlled, home on her usual medication. Comment Review of Relevant I have reviewed the following items cameron (where applicable) has been applied. Labs Laboratory Tests Test 10/21/18 23:25 10/21/18 23:40 10/22/18 03:02 10/22/18 07:15 White Blood Count 9.6 x10^3/uL (4.0-11.0) Red Blood Count 4.61 x10^6/uL (3.50-5.40) Hemoglobin 13.2 g/dL (12.0-15.5) Hematocrit 40.8 % (36.0-47.0) Mean Corpuscular Volume 89 fL (79-100) Mean Corpuscular Hemoglobin 29 pg (25-35) Mean Corpuscular Hemoglobin Concent 32 g/dL (31-37) Red Cell Distribution Width 14.8 % (11.5-14.5) Platelet Count 354 x10^3/uL (140-400) Neutrophils (%) (Auto) 81 % (31-73) Lymphocytes (%) (Auto) 18 % (24-48) Monocytes (%) (Auto) 1 % (0-9) Eosinophils (%) (Auto) 0 % (0-3) Basophils (%) (Auto) 0 % (0-3) Neutrophils # (Auto) 7.8 x10^3uL (1.8-7.7) Lymphocytes # (Auto) 1.7 x10^3/uL (1.0-4.8) Monocytes # (Auto) 0.1 x10^3/uL (0.0-1.1) Eosinophils # (Auto) 0.0 x10^3/uL (0.0-0.7) Basophils # (Auto) 0.0 x10^3/uL (0.0-0.2) Sodium Level 131 mmol/L (136-145) Potassium Level 5.0 mmol/L (3.5-5.1) Chloride Level 92 mmol/L (98-107) Carbon Dioxide Level 20 mmol/L (21-32) Anion Gap 19 (6-14) Blood Urea Nitrogen 18 mg/dL (7-20) Creatinine 1.7 mg/dL (0.6-1.0) Estimated GFR (Cockcroft-Gault) 30.0 BUN/Creatinine Ratio 11 (6-20) Glucose Level 749 mg/dL (70-99) Calcium Level 8.9 mg/dL (8.5-10.1) Magnesium Level 1.9 mg/dL (1.8-2.4) Total Bilirubin 0.3 mg/dL (0.2-1.0) Aspartate Amino Transf (AST/SGOT) 21 U/L (15-37) Alanine Aminotransferase (ALT/SGPT) 30 U/L (14-59) Alkaline Phosphatase 176 U/L (46-116) Troponin I Quantitative < 0.017 ng/mL (0.000-0.055) DK-Ovt-[id number]-Type Natriuretic Peptide 196 pg/mL (0-124) Total Protein 7.3 g/dL (6.4-8.2) Albumin 3.3 g/dL (3.4-5.0) Albumin/Globulin Ratio 0.8 (1.0-1.7) Thyroid Stimulating Hormone (TSH) 1.525 uIU/mL (0.358-3.74) Urine Opiates Screen Neg (NEG) Urine Methadone Screen Neg (NEG) Urine Barbiturates Neg (NEG) Urine Phencyclidine Screen Neg (NEG) Urine Amphetamine/Methamphetamine Neg (NEG) Urine Benzodiazepines Screen Neg (NEG) Urine Cocaine Screen Neg (NEG) Urine Cannabinoids Screen Neg (NEG) Urine Ethyl Alcohol Neg (NEG) Glucose (Fingerstick) 523 mg/dL (70-99) 390 mg/dL (70-99) Test 10/22/18 09:45 10/22/18 12:00 10/22/18 16:46 10/22/18 18:38 Prothrombin Time 13.6 SEC (11.7-14.0) Prothromb Time International Ratio 1.1 (0.8-1.1) Glucose (Fingerstick) 394 mg/dL (70-99) 403 mg/dL (70-99) 456 mg/dL (70-99) Test 10/22/18 20:10 10/23/18 07:02 Glucose (Fingerstick) 374 mg/dL (70-99) 378 mg/dL (70-99) Laboratory Tests Test 10/22/18 09:45 10/22/18 12:00 10/22/18 16:46 10/22/18 18:38 Prothrombin Time 13.6 SEC (11.7-14.0) Prothromb Time International Ratio 1.1 (0.8-1.1) Glucose (Fingerstick) 394 mg/dL (70-99) 403 mg/dL (70-99) 456 mg/dL (70-99) Test 10/22/18 20:10 10/23/18 07:02 Glucose (Fingerstick) 374 mg/dL (70-99) 378 mg/dL (70-99) Microbiology 10/21/18 Blood Culture - Preliminary, Resulted NO GROWTH AFTER 1 DAY Medications Current Medications Albuterol/ Ipratropium (Duoneb) 3 ml 1X ONCE NEB Last administered on at 22:23; Start 10/21/18 at 23:00; Stop 10/21/18 at 23:01; Status DC Methylprednisolone Sodium Succinate (SOLU-Medrol 125MG VIAL) 60 mg Q8HRS IV Last administered on 10/23/18at 05:39; Start 10/22/18 at 06:00 Diphenhydramine HCl (Benadryl) 25 mg 1X ONCE IVP Last administered on at 00:00; Start 10/21/18 at 23:00; Stop 10/21/18 at 23:01; Status DC Methylprednisolone Sodium Succinate (SOLU-Medrol 125MG VIAL) 60 mg 1X ONCE IV Last administered on 10/21/18at 23:59; Start 10/21/18 at 23:00; Stop 10/21/18 at 23: 01; Status DC Ondansetron HCl (Zofran) 4 mg PRN Q8HRS PRN IV NAUSEA/VOMITING 1ST CHOICE Last administered on 10/22/18at 06:09; Start 10/21/18 at 23:00; Stop 10/22/18 at 22:59; Status DC Morphine Sulfate (Morphine Sulfate) 2 mg PRN Q2HR PRN IV SEVERE PAIN; Start 10/21/18 at 23:00; Stop 10/22/18 at 09:10; Status DC Acetaminophen (Tylenol) 650 mg PRN Q4HRS PRN PO FEVER Last administered on at 14:42; Start 10/21/18 at 23:00; Stop 10/22/18 at 22:59; Status DC Albuterol/ Ipratropium (Duoneb) 3 ml RTQID NEB Last administered on 10/22/18at 07 :33; Start 10/22/18 at 08:00; Stop 10/22/18 at 09:04; Status DC Insulin Glargine (Lantus) 60 units BID SQ Last administered on 10/22/18at 08:27; Start 10/22/18 at 01:30; Stop 10/22/18 at 09:08; Status DC Dextrose (Dextrose 50%-Water Syringe) 12.5 gm PRN Q15MIN PRN IV SEE COMMENTS; Start 10/22/18 at 01:00; Stop 10/22/18 at 06:45; Status DC Insulin Human Lispro (HumaLOG) 30 units 1X ONCE SQ Last administered on at 01:23; Start 10/22/18 at 01:30; Stop 10/22/18 at 01:31; Status DC Acetaminophen/ Hydrocodone Bitart (Lortab 5/325) 1 tab PRN Q6HRS PRN PO MODERATE PAIN; Start 10/22/18 at 01:30; Stop 10/22/18 at 09:03; Status DC Insulin Human Lispro (HumaLOG) 0-9 UNITS TIDWMEALS SQ Last administered on 17:47; Start 10/22/18 at 08:00 Dextrose (Dextrose 50%-Water Syringe) 12.5 gm PRN Q15MIN PRN IV SEE COMMENTS; Start 10/22/18 at 06:30 Insulin Human Lispro (HumaLOG) 30 units TIDAC SQ Last administered on 10/22/18 08:25; Start 10/22/18 at 07:30; Stop 10/22/18 at 09:08; Status DC Diphenhydramine HCl (Benadryl) 25 mg Q8HRS IVP Last administered on 10/23/18 05 :39; Start 10/22/18 at 14:00 Diphenhydramine HCl (Benadryl) 25 mg 1X ONCE IVP Last administered on 08:12; Start 10/22/18 at 07:45; Stop 10/22/18 at 07:46; Status DC Diphenhydramine HCl (Benadryl) 25 mg PRN Q4HRS PRN PO NAUSEA 2ND CHOICE; Start 10/22/18 at 09:00 Famotidine (Pepcid) 20 mg BID PO Last administered on 10/23/18 07:59; Start 10/22/18 at 10:00 Acetaminophen/ Hydrocodone Bitart (Lortab 5/325) 1 tab PRN Q6HRS PRN PO PAIN Last administered on 10/23/18 03:24; Start 10/22/18 at 09:00 Albuterol/ Ipratropium (Duoneb) 3 ml RTQID NEB Last administered on 10/23/18 08 :01; Start 10/22/18 at 09:30 Lisinopril (Prinivil) 20 mg DAILY PO Last administered on 10/23/18 07:59; Start 10/22/18 at 10:00 Metoprolol Succinate (Toprol Xl) 25 mg DAILY PO Last administered on 10/23/18 08:00; Start 10/22/18 at 10:00 Fish Oil (Fish Oil) 1,000 mg DAILY PO Last administered on 10/23/18 07:59; Start 10/22/18 at 10:00 Ondansetron HCl (Zofran Odt) 4 mg PRN TID PRN PO NAUSEA/VOMITING Last administered on 10/22/18 23:57; Start 10/22/18 at 09:00 Duloxetine HCl (Cymbalta) 90 mg DAILY PO Last administered on 10/23/18 07:58; Start 10/22/18 at 09:30 Non-Formulary Medication (Ezetimibe/ Simvastatin (Vytorin 10-10 Mg Tablet)) 1 each HS PO ; Start 10/22/18 at 21:00; Status UNV Budesonide (Pulmicort) 0.5 mg RTBID NEB Last administered on 10/23/18 08:01; Start 10/22/18 at 09:30 Insulin Glargine (Lantus) 50 units BID SQ Last administered on 10/23/18 08:03; Start 10/22/18 at 21:00 Insulin Human Lispro (HumaLOG) 15 units TIDWMEALS SQ Last administered on 17:46; Start 10/22/18 at 12:00 Non-Formulary Medication (Linaclotide (Linzess)) 145 mcg DAILY07 PO ; Start 10/23 at 07:00; Status UNV Meclizine HCl (Antivert) 25 mg PRN TID PRN PO DIZZINESS; Start 10/22/18 at 09:15 Meloxicam (Mobic) 15 mg DAILY PO Last administered on 10/23/18 07:59; Start 10/22/18 at 10:00 Montelukast Sodium (Singulair) 10 mg QHS PO Last administered on 10/22/18 20:19 ; Start 10/22/18 at 21:00 Non-Formulary Medication (Tiotropium [place] (Spiriva)) 18 mcg DAILY IH ; Start 10/22/18 at 09:00; Status UNV Warfarin Sodium (Coumadin) 10 mg DAILY16 PO Last administered on 10/22/18 17:41 ; Start 10/22/18 at 16:00 Simvastatin (Zocor) 10 mg QHS PO Last administered on 10/22/18 20:18; Start 10/22/18 at 21:00 EZETIMIBE (Zetia) 10 mg QHS PO Last administered on 10/22/18at 20:18; Start at 21:00 Warfarin Sodium (Coumadin Per Physician) 1 each PRN DAILY PRN MC SEE COMMENTS; Start 10/22/18 at 11:00 Insulin Human Lispro (HumaLOG) 10 units 1X ONCE SQ Last administered on at 17:47; Start 10/22/18 at 17:15; Stop 10/22/18 at 17:16; Status DC Insulin Human Lispro (HumaLOG) 10 units 1X ONCE SQ Last administered on at 18:56; Start 10/22/18 at 19:00; Stop 10/22/18 at 19:39; Status DC Insulin Human Lispro (HumaLOG) 30 units 1X ONCE SQ Last administered on at 08:03; Start 10/23/18 at 07:45; Stop 10/23/18 at 07:46; Status DC Active Scripts Active Coumadin (Warfarin Sodium) 10 Mg Tablet 1 Tab PO DAILY Mobic (Meloxicam) 15 Mg Tablet 1 Tab PO DAILY Meclizine Hcl 25 Mg Tablet 1 Tab PO TID PRN Pepcid (Famotidine) 20 Mg Tablet 20 Mg PO BID [place] 5-325 Tablet (Acetaminophen/Hydrocodone Bitart) 1 Each Tablet 1 Tab PO PRN Q6HRS PRN Duoneb 0.5-3(2.5) Mg/3 Ml (Albuterol/Ipratropium) 3 Ml Ampul.neb 3 Ml NEB QID Linzess (Linaclotide) 145 Mcg Capsule 145 Mcg PO DAILY07 30 Days Fish Oil 1,000 Mg Capsule ([place]-3 Fatty Acids/Fish Oil) 1 Each Capsule 1,000 Mg PO DAILY 30 Days Zofran Odt (Ondansetron) 4 Mg Tab.rapdis 4 Mg PO TID PRN Benadryl (Diphenhydramine Hcl) 25 Mg Capsule 25 Mg PO PRN Q4HRS PRN Reported Humalog (Insulin Lispro) 100 Unit/1 Ml Cartridge 15 Unit SQ TIDWMEALS Lantus (Insulin Glargine,Hum.rec.anlog) 100 Unit/1 Ml Vial 50 Unit SQ BID Lisinopril 20 Mg Tablet 1 Tab PO DAILY Metoprolol Succinate ( Xl ) (Metoprolol Succinate) 25 Mg Tab.er.24h 1 Tab PO DAILY Vytorin 10-10 Mg Tablet (Ezetimibe/Simvastatin) 1 Each Tablet 1 Each PO HS Xopenex Hfa (Levalbuterol Tartrate) 15 Gm Hfa.aer.ad 15 Gm IH PRN BID PRN Spiriva (Tiotropium [place]) 18 Mcg Cap.w.dev 18 Mcg IH DAILY Advair 250-50 Diskus (Fluticasone/Salmeterol) 1 Each Disk.w.dev 1 Each IH BID94 Cymbalta (Duloxetine Hcl) 60 Mg Capsule.dr 90 Mg PO DAILY Singulair Tablet (Montelukast Sodium) 10 Mg Tablet 10 Mg PO HS Vitals/I & O Vital Sign - Last 24 Hours 10/22/18 10/22/18 10/22/18 10/22/18 11:00 11:28 12:36 12:36 Temp 98.0 98.0 Pulse 98 98 98 Resp 20 B/P (MAP) 124/70 (88) 124/70 124/70 Pulse Ox 96 95 O2 Delivery Room Air Room Air 10/22/18 10/22/18 10/22/18 10/22/18 15:00 15:33 19:51 20:00 Temp 97.6 99.1 97.6 99.1 Pulse 92 93 Resp 20 20 B/P (MAP) 134/60 (84) 152/71 (98) Pulse Ox 95 95 95 O2 Delivery Room Air Room Air Room Air Room Air 10/22/18 10/22/18 10/23/18 10/23/18 20:18 23:18 03:24 03:46 Temp 98.4 97.5 98.4 97.5 Pulse 94 88 Resp 18 20 B/P (MAP) 143/61 (88) 169/74 (105) Pulse Ox 96 96 O2 Delivery Room Air Room Air Room Air Room Air 10/23/18 10/23/18 10/23/18 10/23/18 04:24 07:00 07:22 07:59 Temp 98.4 98.4 Pulse 80 80 Resp 20 B/P (MAP) 115/70 (85) 115/70 Pulse Ox 93 O2 Delivery Nasal Cannula Room Air Room Air O2 Flow Rate 2.0 10/23/18 10/23/18 08:00 08:02 Pulse 80 B/P (MAP) 115/70 Pulse Ox 97 O2 Delivery Room Air Intake and Output 10/22/18 10/22/18 10/23/18 15:00 23:00 07:00 Intake Total 660 ml 1090 ml 550 ml Balance 660 ml 1090 ml 550 ml NIKO GIBBONS MD Oct 23, 2018 08:47
[2018-10-23 10:39] LABS: PROTHROMBIN TIME PATIENT 12.9 SEC (11.7-14.0)
[2018-10-23 11:00] VITALS: BP_SYST 132; BP_SYST 150; BP_DIAS 57; BP_DIAS 83
--- NOTE | 2018-10-23 12:50 | NUR ---
Discharge Note: ELY CARDOZA [address] Discharge instructions and discharge home medications reviewed with Patient and a copy given. All questions have been answered and understanding verbalized. The following instructions and handouts were given: information about COPD exac. Discontinued lines and drains: IV line in right AC removed, catheter tip intact. Patient discharged to home with self care with family member, wheelchair used for mobility to discharge vehicle.
--- NOTE | 2018-10-23 19:36 | DS ---
DATE OF DISCHARGE: 10/23/2018 CHIEF COMPLAINT: Shortness of breath. HISTORY OF PRESENT ILLNESS: The patient is a 68-year-old female with a history of asthma. She initially presented to the Emergency Room at about 4:00 p.m. on the day of admission reporting increased wheezing and shortness of breath. She was treated with Solu-Medrol and a breathing treatment and had some improvement in her condition, so she was discharged to home. She returned to the Emergency Department later on the evening of admission stating that her symptoms had worsened again. Chest x-ray was without infiltrate. The patient was not hypoxic on room air. She was given a second dose of Solu-Medrol and admitted for further care. HOSPITAL COURSE: The patient continued without hypoxia on room air. She was given nebulized breathing treatments and nebulized steroids. Her Solu-Medrol was continued at a much lower dose than she had received in the Emergency Department. She had a good improvement in her exam and symptoms and feels ready to return home today. The patient has insulin-dependent diabetes. Her blood sugar was over 700 on the morning after admission due to the steroids she had received in the Emergency Department. This was treated with increased insulin and she had a good improvement in her hyperglycemia with this. The patient's chronic medical conditions including anxiety, chronic pain and hypertension were stable with her usual medications and these were all continued. FINAL DIAGNOSES: 1. Asthma with acute exacerbation. 2. Diabetes mellitus type 2 with hyperglycemia. 3. Chronic anxiety. 4. Chronic pain. 5. Chronic anticoagulation. 6. Hypertension. DISCHARGE MEDICATIONS: Remain the same as at admission. None of the patient's chronic medications were changed. She was not discharged on a prednisone taper , as it appeared she had received enough steroids during her hospital stay. She was advised to call our office promptly if wheezing reoccurred and she felt that she needed some oral prednisone. FOLLOWUP: With Dr. Castro as needed. NIKO GIBBONS MD DR: CECELIA/alyce JOB#: [id number] / [id number] TRENT
[2018-11-27] MEDS ORDERED: LORA0.5T96 PO (08:27)
== END 2018-10-23 12:50 | disposition home or self-care (01) | DRG 202 ==
LOC: ER 21:52 → 6 SOUTH 22:36
PROVIDERS: ADMIT Family Medicine; ATTEND Family Medicine
DX: J45.901 Unspecified asthma with (acute) exacerbation (principal); Z68.42 Body mass index [BMI] 45.0-49.9, adult; E11.65 Type 2 diabetes mellitus with hyperglycemia; I10 Essential (primary) hypertension; F41.9 Anxiety disorder, unspecified; G89.29 Other chronic pain; E66.01 Morbid (severe) obesity due to excess calories; I25.10 Atherosclerotic heart disease of native coronary artery without angina pectoris; K21.9 Gastro-esophageal reflux disease without esophagitis; K58.9 Irritable bowel syndrome, unspecified; T38.0X5A Adverse effect of glucocorticoids and synthetic analogues, initial encounter; Z90.49 Acquired absence of other specified parts of digestive tract; Z90.710 Acquired absence of both cervix and uterus; Z98.42 Cataract extraction status, left eye; Z98.41 Cataract extraction status, right eye; Z88.0 Allergy status to penicillin; Z88.2 Allergy status to sulfonamides; Z88.8 Allergy status to other drugs, medicaments and biological substances; Z79.01 Long term (current) use of anticoagulants; Z79.4 Long term (current) use of insulin; Z86.711 Personal history of pulmonary embolism; Z86.718 Personal history of other venous thrombosis and embolism; Y92.89 Other specified places as the place of occurrence of the external cause
CPT/HCPCS: 36415; 71045; 80053; 80307; 82962; 83735; 83880; 84443; 84484; 85025; 85610; 87040; 87641; 93005; 94640; 96374; 96375; J1200; J1815; J2405; J2930; J7620; J7626; Q0162; Q0163; 99285-25

== ENCOUNTER 2018-11-20 00:27 | Emergency (ER) | payer BC, OTHER ==
[~2018-11-20] VITALS: Ht 165.1 cm; Wt 127.0 kg
--- NOTE | 2018-11-20 00:55 | PHYS DOC ---
Past Medical History Past Medical History: Asthma, Diabetes-Type II, DVT, Hypertension, Migraines, Other Additional Past Medical Histor: asthma, PE, chronic back/abdominal pain Past Surgical History: Appendectomy, Cholecystectomy, Hysterectomy, Other Additional Past Surgical Histo: bilateral cataract, bilater shoulder, hernia x7 ; colon; Alcohol Use: None Drug Use: None Adult General Chief Complaint Chief Complaint: BACK PAIN - NO INJURY HPI HPI Patient is a 68-year-old female who presents with complaint of lower back pain for about the last week and a half. Patient indicates that she has a history of similar symptoms. She denies any recent injuries. She states the pain is worsened with movement. She rates her pain to be a 10 out of 10. She denies any radiation of the pain and indicates that she has no loss of bowel or bladder control. Review of Systems Review of Systems Constitutional: Denies fever or chills [] Respiratory: Denies cough or shortness of breath [] Cardiovascular: No additional information not addressed in HPI [] : Denies dysuria or hematuria [] Musculoskeletal: Complains of lower back pain [] Current Medications Current Medications Current Medications Medications (Trade) Dose Ordered Sig/Irish Start Time Stop Time Status Last Admin Dose Admin Ketorolac Tromethamine (Toradol Im) 60 mg 1X ONCE 11/20/18 01:00 11/20/18 01:01 DC 11/20/18 01:08 60 MG Orphenadrine Citrate (Norflex) 60 mg 1X ONCE 11/20/18 01:00 11/20/18 01:01 DC 11/20/18 01:07 60 MG Allergies Allergies Allergies Coded Allergies Type Severity Reaction Last Updated Verified Penicillins Allergy Severe itching, dry mouth, tongue swells 01/24/18 Yes Sulfa (Sulfonamide Antibiotics) Allergy Intermediate ITCHING DRY MOUTH, hives/ swelling 12/16/15 Yes fentanyl Allergy Intermediate 12/16/15 Yes hydromorphone HCl Allergy Intermediate MORPHINE OK 12/16/15 Yes methylprednisolone Allergy Intermediate RED MAN SYNDROME 10/11/16 Yes prednisone Allergy Intermediate RED MED SYNDROME 10/11/16 Yes gluten Allergy Mild bloating 04/18/17 Yes I S O L A T I O N *CONTACT* Allergy Unknown 02/04/17 Yes oxycodone HCl Adverse Reaction Intermediate "i FEEL LIKE I HAVE WORMS IN ME" Yes Physical Exam Physical Exam Constitutional: Well developed, well nourished, no acute distress, non-toxic appearance. [] Cardiovascular:Heart rate regular rhythm, no murmur [] Lungs & Thorax: Bilateral breath sounds clear to auscultation [] Skin: Warm, dry, no erythema, no rash. [] Back: There is reported tenderness to palpation in the bilateral lumbar paraspinal musculature. [] Extremities: No tenderness, no cyanosis, no clubbing, ROM intact, no edema. [] Current Patient Data Vital Signs Vital Signs Date Time Temp Pulse Resp B/P (MAP) Pulse Ox O2 Delivery O2 Flow Rate FiO2 11/20/18 00:37 99.2 110 20 211/82 (125) 97 Room Air 99.2 EKG EKG [] Radiology/Procedures Radiology/Procedures [] Course & Med Decision Making Course & Med Decision Making Pertinent Labs and Imaging studies reviewed. (See chart for details) [] Dragon Disclaimer Dragon Disclaimer This electronic medical record was generated, in whole or in part, using a voice recognition dictation system. Departure Departure Impression: Primary Impression: Low back pain Disposition: 01 HOME, SELF-CARE Condition: STABLE Referrals: Meagan ALVAREZ MD (PCP) Patient Instructions: Back Pain, Adult Scripts Orphenadrine Citrate (ORPHENADRINE CITRATE) 100 Mg Tablet.er 1 TAB PO BID PRN for MUSCLE SPASMS, #14 TAB Prov: BRIELLE SUGGS Jr. DO 11/20/18 Tramadol Hcl (TRAMADOL HCL) 50 Mg Tablet 50 MG PO Q6HRS PRN for PAIN, #12 TAB Prov: BRIELLE SUGGS Jr. DO 11/20/18 Problem Qualifiers Primary Impression: Low back pain Chronicity: acute Back pain laterality: bilateral Sciatica presence: without sciatica Qualified Codes: M54.5 - Low back pain BRIELLE SUGGS Jr. DO Nov 20, 2018 00:55
[2018-11-20] MEDS ORDERED: KETOROLAC 60 MG/2 ML VIAL. IM ONE (01:00)
[2018-11-20] MEDS ORDERED: ORPHENADRINE CITRATE 60 MG/2 ML VIAL. IM ONE (01:00)
[2018-11-20] MEDS ORDERED: TRAM50TA PO (01:18)
[2018-11-20] MEDS ORDERED: ORPH100T PO (01:18)
[2018-11-20 01:39] VITALS: BP 175/79
== END 2018-11-20 01:41 | disposition home or self-care (01) ==
LOC: ER 00:27
DX: M54.5 Low back pain (principal); G43.909 Migraine, unspecified, not intractable, without status migrainosus; I10 Essential (primary) hypertension; J45.909 Unspecified asthma, uncomplicated; E11.9 Type 2 diabetes mellitus without complications; Z86.718 Personal history of other venous thrombosis and embolism; Z90.49 Acquired absence of other specified parts of digestive tract; Z90.89 Acquired absence of other organs; Z90.710 Acquired absence of both cervix and uterus; Z98.890 Other specified postprocedural states; Z88.0 Allergy status to penicillin; Z88.2 Allergy status to sulfonamides; Z88.4 Allergy status to anesthetic agent; Z88.5 Allergy status to narcotic agent; Z91.041 Radiographic dye allergy status
CPT/HCPCS: 96372; 99283; J1885; J2360

== ENCOUNTER 2018-11-25 21:39 | Emergency (ER) | payer BC, OTHER ==
[~2018-11-25] VITALS: Ht 165.1 cm; Wt 129.3 kg
[~2018-11-25 21:39] MED LIST changes: +TRAM50TA PO
[2018-11-25] MEDS ORDERED: DEXAMETHASONE SOD PHOS 20 MG/5 ML VIAL. IV ONE (22:15)
[2018-11-25] MEDS ORDERED: IPRATRPIUM/ALBUTEROL 0.5/2.5MG 3 ML NEBU. NEB ONE (22:15)
[2018-11-25 22:24] LABS: BASO # 0.1 x10^3/uL (0.0-0.2); BASO % 1 % (0-3); EOS # 0.2 x10^3/uL (0.0-0.7); EOS % 2 % (0-3); HEMATOCRIT 39.8 % (36.0-47.0); HEMOGLOBIN 13.1 g/dL (12.0-15.5); LYMPH # 5.7 x10^3/uL (1.0-4.8); LYMPH % 53 % (24-48); MEAN CORPUSCULAR HEMOGLOBIN 29 pg (25-35); MEAN CORPUSCULAR HGB CONC 33 g/dL (31-37); MEAN CORPUSCULAR VOLUME 87 fL (79-100); MONO # 0.6 x10^3/uL (0.0-1.1); MONO % 6 % (0-9); NEUT # 4.2 x10^3uL (1.8-7.7); NEUT % 39 % (31-73); PLATELET COUNT 276 x10^3/uL (140-400); RED BLOOD COUNT 4.58 x10^6/uL (3.50-5.40); RED CELL DISTRIBUTION WIDTH 14.7 % (11.5-14.5); WHITE BLOOD COUNT 10.8 x10^3/uL (4.0-11.0)
--- NOTE | 2018-11-25 22:29 | PHYS DOC ---
Past Medical History Past Medical History: Asthma, Diabetes-Type II, DVT, Hypertension, Migraines, Other Additional Past Medical Histor: asthma, PE, chronic back/abdominal pain Past Surgical History: Appendectomy, Cholecystectomy, Hysterectomy, Other Additional Past Surgical Histo: bilateral cataract, bilater shoulder, hernia x7 ; colon; Alcohol Use: None Drug Use: None Adult General Chief Complaint Chief Complaint: SHORTNESS OF BREATH HPI HPI 68-year-old female with multiple medical problems including asthma/COPD presents with several day history of progressive shortness of breath, cough and wheezing. She's taking breathing treatments at home without much relief. She denies any fever chills or sweats. She denies any hemoptysis or unilateral leg swelling. He states this feels very much like an asthma exacerbation.[] Review of Systems Review of Systems Constitutional: Denies fever or chills [] Eyes: Denies change in visual acuity, redness, or eye pain [] HENT: Denies nasal congestion or sore throat [] Respiratory: Per history of present illness[] Cardiovascular: No additional information not addressed in HPI [] GI: Denies abdominal pain, nausea, vomiting, bloody stools or diarrhea [] : Denies dysuria or hematuria [] Musculoskeletal: Denies back pain or joint pain [] Integument: Denies rash or skin lesions [] Neurologic: Denies headache, focal weakness or sensory changes [] Endocrine: Denies polyuria or polydipsia [] All other systems were reviewed and found to be within normal limits, except as documented in this note. Current Medications Current Medications Current Medications Medications (Trade) Dose Ordered Sig/[facility] Start Time Stop Time Status Last Admin Dose Admin Albuterol/ Ipratropium (Duoneb) 6 ml 1X ONCE 11/25/18 22:15 11/25/18 22:18 DC 11/25/18 22:31 6 ML Dexamethasone Sodium Phosphate (Decadron) 10 mg 1X ONCE 11/25/18 22:15 11/25/18 22:18 DC 11/25/18 22:53 10 MG Allergies Allergies Allergies Coded Allergies Type Severity Reaction Last Updated Verified Penicillins Allergy Severe itching, dry mouth, tongue swells 01/24/18 Yes Sulfa (Sulfonamide Antibiotics) Allergy Intermediate ITCHING DRY MOUTH, hives/ swelling 12/16/15 Yes fentanyl Allergy Intermediate 12/16/15 Yes hydromorphone HCl Allergy Intermediate MORPHINE OK 12/16/15 Yes methylprednisolone Allergy Intermediate RED MAN SYNDROME 10/11/16 Yes prednisone Allergy Intermediate RED MED SYNDROME 10/11/16 Yes gluten Allergy Mild bloating 04/18/17 Yes I S O L A T I O N *CONTACT* Allergy Unknown 02/04/17 Yes oxycodone HCl Adverse Reaction Intermediate "i FEEL LIKE I HAVE WORMS IN ME" Yes Physical Exam Physical Exam Constitutional: Well developed, well nourished, mild distress, appears acutely ill but nontoxic[] HENT: Normocephalic, atraumatic, bilateral external ears normal, oropharynx moist, no oral exudates, nose normal. [] Eyes: PERRLA, EOMI, conjunctiva normal, no discharge. [] Neck: Normal range of motion, no tenderness, supple, no stridor. [] Cardiovascular:Heart rate regular rhythm, no murmur [] Lungs & Thorax: Scattered wheezes throughout both lungs[] Abdomen: Bowel sounds normal, soft, no tenderness, no masses, no pulsatile masses. [] Skin: Warm, dry, no erythema, no rash. [] Back: No tenderness, no CVA tenderness. [] Extremities: No tenderness, no cyanosis, no clubbing, ROM intact, no edema. [] Neurologic: Alert and oriented X 3, normal motor function, normal sensory function, no focal deficits noted. [] Psychologic: Extremely anxious[] Current Patient Data Vital Signs Vital Signs Date Time Temp Pulse Resp B/P (MAP) Pulse Ox O2 Delivery O2 Flow Rate FiO2 11/25/18 22:31 93 Room Air 11/25/18 21:45 98.1 125 26 181/82 (115) 98.1 Lab Values Laboratory Tests Test 11/25/18 21:50 White Blood Count 10.8 x10^3/uL (4.0-11.0) Red Blood Count 4.58 x10^6/uL (3.50-5.40) Hemoglobin 13.1 g/dL (12.0-15.5) Hematocrit 39.8 % (36.0-47.0) Mean Corpuscular Volume 87 fL (79-100) Mean Corpuscular Hemoglobin 29 pg (25-35) Mean Corpuscular Hemoglobin Concent 33 g/dL (31-37) Red Cell Distribution Width 14.7 % (11.5-14.5) H Platelet Count 276 x10^3/uL (140-400) Neutrophils (%) (Auto) 39 % (31-73) Lymphocytes (%) (Auto) 53 % (24-48) H Monocytes (%) (Auto) 6 % (0-9) Eosinophils (%) (Auto) 2 % (0-3) Basophils (%) (Auto) 1 % (0-3) Neutrophils # (Auto) 4.2 x10^3uL (1.8-7.7) Lymphocytes # (Auto) 5.7 x10^3/uL (1.0-4.8) H Monocytes # (Auto) 0.6 x10^3/uL (0.0-1.1) Eosinophils # (Auto) 0.2 x10^3/uL (0.0-0.7) Basophils # (Auto) 0.1 x10^3/uL (0.0-0.2) Sodium Level 137 mmol/L (136-145) Potassium Level 3.4 mmol/L (3.5-5.1) L Chloride Level 97 mmol/L (98-107) L Carbon Dioxide Level 28 mmol/L (21-32) Anion Gap 12 (6-14) Blood Urea Nitrogen 12 mg/dL (7-20) Creatinine 0.9 mg/dL (0.6-1.0) Estimated GFR (Cockcroft-Gault) 62.5 BUN/Creatinine Ratio 13 (6-20) Glucose Level 354 mg/dL (70-99) H Calcium Level 8.9 mg/dL (8.5-10.1) Total Bilirubin 0.2 mg/dL (0.2-1.0) Aspartate Amino Transferase (AST) 21 U/L (15-37) Alanine Aminotransferase (ALT) 22 U/L (14-59) Alkaline Phosphatase 119 U/L (46-116) H Troponin I Quantitative < 0.017 ng/mL (0.000-0.055) RO-Ezy-P-Type Natriuretic Peptide 93 pg/mL (0-124) Total Protein 6.9 g/dL (6.4-8.2) Albumin 3.0 g/dL (3.4-5.0) L Albumin/Globulin Ratio 0.8 (1.0-1.7) L Laboratory Tests 11/25/18 21:50 Laboratory Tests 11/25/18 21:50 EKG EKG [] Interpretation Time: EKG: Sinus tachycardia rate of 1:15 with a left axis and nonspecific ST-T changes Radiology/Procedures Radiology/Procedures [] Course & Med Decision Making Course & Med Decision Making Pertinent Labs and Imaging studies reviewed. (See chart for details) [ED course: Evaluation reveals a 68-year-old female that was wheezing. She was given [id number] DuoNeb nebs along with 10 mg of Decadron IV with near complete resolution of her symptoms. After her treatment on room air her oxygen saturation was 98% and she states she feels much better. Her chest x-ray was reviewed by me and I did not appreciate any infiltrate. Patient is safe for discharge home at this time.] Dragon Disclaimer Dragon Disclaimer This electronic medical record was generated, in whole or in part, using a voice recognition dictation system. Departure Departure Impression: Primary Impression: Acute asthma exacerbation Disposition: 01 HOME, SELF-CARE Condition: IMPROVED Referrals: Meagan ALVAREZ MD (PCP) Patient Instructions: Asthma, Acute Bronchospasm, Asthma, Adult Additional Instructions: Return to the emergency department with any new or concerning symptoms Scripts Azithromycin (ZITHROMAX) 250 Mg Tablet 1 PKG PO UD for bronchitis, #6 TAB Take 2 tablets on day 1 and then 1 tablet each day for the next 4 days as directed Prov: CHAO HOUSE DO 11/25/18 Problem Qualifiers Primary Impression: Acute asthma exacerbation Asthma severity: moderate Asthma persistence: persistent Qualified Codes: J45.41 - Moderate persistent asthma with (acute) exacerbation CHAO HOUSE DO Nov 25, 2018 22:29
[2018-11-25 22:37] LABS: CALCIUM 8.9 mg/dL (8.5-10.1); CREATININE 0.9 mg/dL (0.6-1.0); GFR 62.5; POTASSIUM 3.4 mmol/L (3.5-5.1)
[2018-11-25 22:40] LABS: ALBUMIN/GLOBULIN RATIO 0.8 (1.0-1.7); TOTAL BILIRUBIN 0.2 mg/dL (0.2-1.0); TOTAL PROTEIN 6.9 g/dL (6.4-8.2)
[2018-11-25] MEDS ORDERED: AZIT250T PO (23:15)
[2018-11-25 23:16] VITALS: BP 163/65
--- NOTE | 2018-11-26 07:05 | EKG ---
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
--- NOTE | 2018-11-26 07:48 | RAD ---
CHEST AP ONLY Clinical Indication: soa Comparison: 10/21/2018 portable chest x-ray exam. Findings: Bilateral shoulder joint prostheses are present. The cardiomediastinal silhouette is normal. Lungs are clear. Calcified granuloma involves the lateral left mid thoracic level. There is no pneumothorax. No pleural effusion is appreciated. No acute bone abnormality. IMPRESSION: No acute cardiopulmonary process. Electronically signed by: Jc Rey MD (11/26/2018 7:45 AM) [facility]
== END 2018-11-25 23:40 | disposition home or self-care (01) ==
LOC: ER 21:39
DX: J45.41 Moderate persistent asthma with (acute) exacerbation (principal); E11.9 Type 2 diabetes mellitus without complications; I10 Essential (primary) hypertension; G43.909 Migraine, unspecified, not intractable, without status migrainosus; Z86.718 Personal history of other venous thrombosis and embolism; Z90.89 Acquired absence of other organs; Z90.49 Acquired absence of other specified parts of digestive tract; Z90.710 Acquired absence of both cervix and uterus; Z88.0 Allergy status to penicillin; Z88.2 Allergy status to sulfonamides; Z88.5 Allergy status to narcotic agent; Z91.041 Radiographic dye allergy status
CPT/HCPCS: 93005; 94640; 96374; 99284; J1100; J7620; 36415; 71045; 80053; 83880; 84484; 85025

== ENCOUNTER 2018-11-26 03:22 | Inpatient (IN) | payer BC, OTHER ==
[~2018-11-26] VITALS: Ht 165.1 cm; Wt 132.5 kg
--- NOTE | 2018-11-26 03:27 | PHYS DOC ---
Past Medical History Past Medical History: Asthma, Diabetes-Type II, DVT, Hypertension, Migraines, Other Additional Past Medical Histor: asthma, PE, chronic back/abdominal pain Past Surgical History: Appendectomy, Cholecystectomy, Hysterectomy, Other Additional Past Surgical Histo: bilateral cataract, bilater shoulder, hernia x7 ; colon; Alcohol Use: None Drug Use: None Adult General Chief Complaint Chief Complaint: SHORTNESS OF BREATH HPI HPI 68-year-old female with a history of reactive airway presents again tonight via EMS with worsening shortness of breath. Patient was seen and evaluated 1-2 hours ago here and discharged after improvement with dexamethasone and DuoNeb. She states she got home and felt like her lungs got tight again and she started wheezing again. She denies any fever chills or sweats. She does admit to being very anxious.[] Review of Systems Review of Systems Constitutional: Denies fever or chills [] Eyes: Denies change in visual acuity, redness, or eye pain [] HENT: Denies nasal congestion or sore throat [] Respiratory: Reports coughing and wheezing[] Cardiovascular: No additional information not addressed in HPI [] GI: Denies abdominal pain, nausea, vomiting, bloody stools or diarrhea [] : Denies dysuria or hematuria [] Musculoskeletal: Denies back pain or joint pain [] Integument: Denies rash or skin lesions [] Neurologic: Denies headache, focal weakness or sensory changes [] Endocrine: Denies polyuria or polydipsia [] All other systems were reviewed and found to be within normal limits, except as documented in this note. Current Medications Current Medications Current Medications Medications (Trade) Dose Ordered Sig/[place] Start Time Stop Time Status Last Admin Dose Admin Acetaminophen (Tylenol) 650 mg PRN Q4HRS PRN 11/26/18 03:30 11/27/18 03:29 UNV Albuterol/ Ipratropium (Duoneb) 3 ml RTQID 11/26/18 08:00 11/27/18 07:59 UNV Ondansetron HCl (Zofran) 4 mg PRN Q8HRS PRN 11/26/18 03:30 11/27/18 03:29 UNV Sodium Chloride 1,000 ml @ 125 mls/hr Q8H 11/26/18 03:28 11/27/18 03:27 UNV Allergies Allergies Allergies Coded Allergies Type Severity Reaction Last Updated Verified Penicillins Allergy Severe itching, dry mouth, tongue swells 01/24/18 Yes Sulfa (Sulfonamide Antibiotics) Allergy Intermediate ITCHING DRY MOUTH, hives/ swelling 12/16/15 Yes fentanyl Allergy Intermediate 12/16/15 Yes hydromorphone HCl Allergy Intermediate MORPHINE OK 12/16/15 Yes methylprednisolone Allergy Intermediate RED MAN SYNDROME 10/11/16 Yes prednisone Allergy Intermediate RED MED SYNDROME 10/11/16 Yes gluten Allergy Mild bloating 04/18/17 Yes I S O L A T I O N *CONTACT* Allergy Unknown 02/04/17 Yes oxycodone HCl Adverse Reaction Intermediate "i FEEL LIKE I HAVE WORMS IN ME" Yes Physical Exam Physical Exam Constitutional: Well developed, well nourished, mild distress, non-toxic appearance. [] HENT: Normocephalic, atraumatic, bilateral external ears normal, oropharynx moist, no oral exudates, nose normal. [] Eyes: PERRLA, EOMI, conjunctiva normal, no discharge. [] Neck: Normal range of motion, no tenderness, supple, no stridor. [] Cardiovascular:Heart rate regular rhythm, no murmur [] Lungs & Thorax: Scattered wheezes both lungs[] Abdomen: Bowel sounds normal, soft, no tenderness, no masses, no pulsatile masses. [] Skin: Warm, dry, no erythema, no rash. [] Back: No tenderness, no CVA tenderness. [] Extremities: No tenderness, no cyanosis, no clubbing, ROM intact, no edema. [] Neurologic: Alert and oriented X 3, normal motor function, normal sensory function, no focal deficits noted. [] Psychologic: Extremely anxious. [] EKG EKG [] Radiology/Procedures Radiology/Procedures [] Course & Med Decision Making Course & Med Decision Making Pertinent Labs and Imaging studies reviewed. (See chart for details) [ED course: Evaluation reveals a 68-year-old female that had worsening bronchospasm after a recent evaluation and treatment in the emergency department. I think it is more than prudent at this time to go ahead and admit her to the hospital for [id number] scheduled DuoNeb treatments as well as IV steroids. We'll admit to the hospitalist and have pulmonary evaluate the patient as well.] [place] Disclaimer Dragon Disclaimer This electronic medical record was generated, in whole or in part, using a voice recognition dictation system. Departure Departure Impression: Primary Impression: COPD exacerbation Disposition: ADMITTED INPATIENT Admitting Physician: Mila Saenz Condition: STABLE Referrals: Meagan ALVAREZ MD (PCP) CHAO HOUSE DO Nov 26, 2018 03:27
[2018-11-26] MEDS ORDERED: ACETAMINOPHEN 325 MG TABLET. PO PRN (03:30)
[2018-11-26] MEDS ORDERED: IV NORMAL SALINE 1000ML BAG 1,000 ML IV SCH (03:30)
[2018-11-26] MEDS ORDERED: ONDANSETRON PF 4 MG/2 ML VIAL. IV PRN (03:30)
[2018-11-26 05:09] VITALS: BP 182/94
[2018-11-26] MEDS: cloNIDine HCL 0.1 MG TABLET PO PRN ×2 (06:17→08:05)
[2018-11-26 07:00] VITALS: BP 178/68
[2018-11-26] MEDS ORDERED: IPRATRPIUM/ALBUTEROL 0.5/2.5MG 3 ML NEBU. NEB SCH (08:00)
--- NOTE | 2018-11-26 09:14 | NUR ---
IP: Pt has a hx of + mrsa screens since 2007 with most recent on 07/11/18. Pt to be in contact precautions.
[2018-11-26] MEDS ORDERED: NON FORMULARY ITEM (Orphenadrine Citrate 1 TAB) PO PRN (09:30)
[2018-11-26] MEDS ORDERED: DEXTROSE 50% 25 GM / 50ML DISP.SYRIN. IV PRN (09:30)
[2018-11-26] MEDS ORDERED: LORazepam 0.5 MG TABLET PO PRN (09:30)
[2018-11-26] MEDS ORDERED: ONDANSETRON ODT 4 MG TAB.RAPDIS. PO PRN (09:30)
--- NOTE | 2018-11-26 09:37 | PDOC ---
PROGRESS NOTES Subjective Subjective Patient reports breathing is some better than yesterday, still feels some wheezing and tightness. Objective Objective Vital Signs Date Time Temp Pulse Resp B/P (MAP) Pulse Ox O2 Delivery O2 Flow Rate FiO2 11/26/18 08:05 109 178/68 11/26/18 07:00 97.9 20 94 Room Air 97.9 Intake and Output 11/26/18 07:00 Intake Total 500 ml Balance 500 ml Intake Oral 500 ml # Voids 1 Physical Exam Abdomen: Normal bowel sounds, Soft, No tenderness Heart: Regular rate Extremities: No edema General: Alert, Oriented X3, No acute distress Lungs: Other (BS decreased throughout, mild expiratory wheezes present) Assessment Assessment Problems Medical Problems: (1) COPD exacerbation Status: Acute Plan Plan of Care 1. Asthma exacerbation - failed outpatient treatment when she had to return to the ER last night after being seen there earlier in the day. No hypoxia on room air. Continue nebs, add Solumedrol. CXR clear. 2. chronic anxiety - patient agrees that this can contribute to her shortness of breath sometimes. Takes Cymbalta daily. Will try low dose Ativan prn. 3. DM2 - continue insulins. Expect hyperglycemia due to steroids. 4. HTN -continue home meds. 5. chronic anticoagulation - has been stable with her usual 10mg Coumadin daily. Will continue this and check INR in AM. Comment Review of Relevant I have reviewed the following items cameron (where applicable) has been applied. Labs Laboratory Tests Test 11/26/18 05:00 Troponin I Quantitative < 0.017 ng/mL (0.000-0.055) Laboratory Tests Test 11/26/18 05:00 Troponin I Quantitative < 0.017 ng/mL (0.000-0.055) Medications Current Medications Ondansetron HCl (Zofran) 4 mg PRN Q8HRS PRN IV NAUSEA/VOMITING; Start 11/26/18 at 03:30; Stop 11/27/18 at 03:29 Sodium Chloride 1,000 ml @ 125 mls/hr Q8H IV Last administered on 11/26/18at 06 :18; Start 11/26/18 at 03:30; Stop 11/26/18 at 09:25; Status DC Acetaminophen (Tylenol) 650 mg PRN Q4HRS PRN PO FEVER Last administered on 11/26at 08:06; Start 11/26/18 at 03:30; Stop 11/27/18 at 03:29 Albuterol/ Ipratropium (Duoneb) 3 ml RTQID NEB Last administered on 11/26/18at 06:23; Start 11/26/18 at 08:00; Stop 11/27/18 at 07:59 Lorazepam (Ativan) 1 mg 1X ONCE IV Last administered on 11/26/18at 06:18; Start 11/26/18 at 03:45; Stop 11/26/18 at 03:46; Status DC Clonidine HCl (Catapres) 0.1 mg PRN Q1HR PRN PO HYPERTENSION, SEE COMMENTS Last administered on 11/26/18at 08:05; Start 11/26/18 at 05:15; Stop 11/26/18 at 09:25; Status DC Lorazepam (Ativan) 0.5 mg PRN Q8HRS PRN PO ANXIETY / AGITATION; Start 11/26/18 at 09:30; Status UNV Active Scripts Active Orphenadrine Citrate 100 Mg Tablet.er 1 Tab PO BID PRN Tramadol Hcl 50 Mg Tablet 50 Mg PO Q6HRS PRN Coumadin (Warfarin Sodium) 10 Mg Tablet 1 Tab PO DAILY Mobic (Meloxicam) 15 Mg Tablet 1 Tab PO DAILY Meclizine Hcl 25 Mg Tablet 1 Tab PO TID PRN Pepcid (Famotidine) 20 Mg Tablet 20 Mg PO BID [place] 5-325 Tablet (Acetaminophen/Hydrocodone Bitart) 1 Each Tablet 1 Tab PO PRN Q6HRS PRN Duoneb 0.5-3(2.5) Mg/3 Ml (Albuterol/Ipratropium) 3 Ml Ampul.neb 3 Ml NEB QID Linzess (Linaclotide) 145 Mcg Capsule 145 Mcg PO DAILY07 30 Days Fish Oil 1,000 Mg Capsule ([place]-3 Fatty Acids/Fish Oil) 1 Each Capsule 1,000 Mg PO DAILY 30 Days Zofran Odt (Ondansetron) 4 Mg Tab.rapdis 4 Mg PO TID PRN Benadryl (Diphenhydramine Hcl) 25 Mg Capsule 25 Mg PO PRN Q4HRS PRN Reported Humalog (Insulin Lispro) 100 Unit/1 Ml Cartridge 15 Unit SQ TIDWMEALS Lantus (Insulin Glargine,Hum.rec.anlog) 100 Unit/1 Ml Vial 50 Unit SQ BID Lisinopril 20 Mg Tablet 1 Tab PO DAILY Metoprolol Succinate ( Xl ) (Metoprolol Succinate) 25 Mg Tab.er.24h 1 Tab PO DAILY Vytorin 10-10 Mg Tablet (Ezetimibe/Simvastatin) 1 Each Tablet 1 Each PO HS Xopenex Hfa (Levalbuterol Tartrate) 15 Gm Hfa.aer.ad 15 Gm IH PRN BID PRN Spiriva (Tiotropium [place]) 18 Mcg Cap.w.dev 18 Mcg IH DAILY Advair 250-50 Diskus (Fluticasone/Salmeterol) 1 Each Disk.w.dev 1 Each IH BID94 Cymbalta (Duloxetine Hcl) 60 Mg Capsule.dr 90 Mg PO DAILY Singulair Tablet (Montelukast Sodium) 10 Mg Tablet 10 Mg PO HS Vitals/I & O Vital Sign - Last 24 Hours 11/26/18 11/26/18 11/26/18 11/26/18 03:22 04:40 04:40 05:09 Temp 97.9 98.8 97.9 98.8 Pulse 112 106 100 Resp 22 20 16 B/P (MAP) 192/69 (110) 186/64 (104) 182/94 (123) Pulse Ox 97 96 96 O2 Delivery Room Air Room Air Room Air Room Air 11/26/18 11/26/18 11/26/18 11/26/18 06:17 06:23 07:00 08:05 Temp 97.9 97.9 Pulse 100 112 109 Resp 20 B/P (MAP) 182/94 178/68 (104) 178/68 Pulse Ox 96 94 O2 Delivery Room Air Room Air Intake and Output 11/25/18 11/25/18 11/26/18 15:00 23:00 07:00 Intake Total 500 ml Balance 500 ml NIKO GIBBONS MD Nov 26, 2018 09:37
[2018-11-26] MEDS ORDERED: MECLIZINE HCL 12.5 MG TABLET. PO PRN (10:00)
--- NOTE | 2018-11-26 10:27 | HP ---
ADMIT DATE: 11/26/2018 CHIEF COMPLAINT: Shortness of breath. HISTORY OF PRESENT ILLNESS: The patient is a 68-year-old female with a long history of asthma. She was originally seen in our Emergency Department on the evening prior to admission with the above complaint. At that time, she received a breathing treatment and a dose of IV Decadron. Her chest x-ray was clear and she was not hypoxic on room air. She stated she felt better after the above measures and so she was discharged to home. She returned to the Emergency Department later last night reporting that her symptoms had recurred and she was having significant shortness of air. Treatment was started and she was admitted for further care. PAST MEDICAL HISTORY: Asthma; chronic anxiety; diabetes mellitus type 2, insulin-dependent; coronary artery disease; hypertension; GERD; irritable bowel syndrome and history of pulmonary emboli. PAST SURGICAL HISTORY: Appendectomy, breast biopsy, cholecystectomy, cataract removal, hernia repair, tonsillectomy and hysterectomy. ALLERGIES: THE PATIENT IS ALLERGIC TO PENICILLIN, SULFA, FENTANYL, GLUTEN, HYDROMORPHONE, METHYLPREDNISOLONE AND OXYCODONE. HOME MEDICATIONS: [place] 5/325 p.r.n., DuoNeb treatments q.i.d., Benadryl 25 mg p.r.n., Cymbalta 90 mg daily, Vytorin 10/10 one daily, famotidine 20 mg b.i.d., Advair 250/50 one puff b.i.d., Lantus insulin 50 units b.i.d., Humalog insulin 15 units t.i.d. a.c., Linzess 145 mcg daily, lisinopril 20 mg daily, meclizine 25 mg p.r.n., meloxicam 15 mg daily, Toprol-XL 25 mg daily, Singulair 10 mg daily, Spiriva 1 puff daily and Coumadin 10 mg daily. FAMILY HISTORY: Noncontributory. SOCIAL HISTORY: The patient is and lives with family members. She does not smoke cigarettes. She does not drink alcohol to excess. REVIEW OF SYSTEMS: The patient denies fever or chills. She denies chest pain or palpitations. She does feel some shortness of air and wheezing still. She denies abdominal pain, nausea or vomiting. She has been compliant with all her medications, taking them as prescribed. She has chronic anxiety, which is fairly well controlled with her usual Cymbalta. She does admit to increased anxiety yesterday due to concerns about a family member and agrees that this may have contributed to her feelings of shortness of air. PHYSICAL EXAMINATION: GENERAL: The patient is alert and oriented x 3, resting comfortably in bed in no acute distress. HEENT: PERRL, EOMI, sclerae clear. Oropharynx: Mucous membranes are moist. NECK: Supple, without lymphadenopathy. CHEST: Breath sounds mildly decreased throughout with mild expiratory wheezes present. CARDIOVASCULAR: Regular rhythm. ABDOMEN: Soft, nontender and normoactive bowel sounds are present. EXTREMITIES: Without edema. ASSESSMENT AND PLAN: 1. Asthma exacerbation. The patient failed outpatient treatment when she had to return to the Emergency Room last night after having been seen there earlier in the day. She is not hypoxic on room air and her chest x-ray was clear. We will continue nebulized treatments and add Solu-Medrol. 2. Chronic anxiety. The patient agrees this could be contributing to her shortness of breath at times. We will continue Cymbalta daily and try a low dose of Ativan p.r.n. 3. Diabetes mellitus type 2. Continue insulin and expect hyperglycemia due to steroids. 4. Hypertension. Continue home medication. 5. Chronic anticoagulation. This has been stable with her usual 10 mg of Coumadin daily. We will continue this and check an INR in the morning. NIKO GIBBONS MD DR: CECELIA/alyce JOB#: [id number] / [id number] TRENT
[2018-11-26 10:53] LABS: PROTHROMBIN TIME PATIENT 23.5 SEC (11.7-14.0)
[2018-11-26] MEDS: DULoxetine HCL 30 MG CAPSULE.DR PO SCH (10:56)
[2018-11-26] MEDS: methylPREDNISolone SOD SUCC PF 125 MG/2 ML VIAL. IV SCH ×2 (10:56→21:21)
[2018-11-26] MEDS: FAMOTIDINE 20 MG TABLET. PO SCH ×2 (10:58→21:21)
[2018-11-26] MEDS: METOPROLOL SUCC 24HR ER 25 MG TAB.ER.24H. PO SCH (10:58)
[2018-11-26] MEDS: LISINOPRIL 20 MG TABLET PO SCH (10:58)
[2018-11-26] MEDS: OMEGA-3 FATTY ACIDS/FISH OIL 1,000 MG CAPSULE. PO SCH (10:59)
[2018-11-26] MEDS: MELOXICAM 7.5 MG TABLET PO SCH (10:59)
[2018-11-26 11:00] VITALS: BP 150/64
[2018-11-26] MEDS: diphenhydrAMINE HCL 25 MG CAPSULE PO PRN ×2 (11:02→21:24)
[2018-11-26] MEDS: SIMVASTATIN 10 MG TABLET PO SCH ×2 (11:05→21:21)
[2018-11-26] MEDS: EZETIMIBE 10 MG TABLET. PO SCH (11:05)
[2018-11-26] MEDS: INSULIN GLARGINE 300 UNITS/3 ML INSULN.PEN. SQ SCH ×2 (11:15→21:27)
[2018-11-26] MEDS: INSULIN LISPRO 300 UNITS/3 ML INSULN.PEN. SQ SCH ×4 (11:16→16:44)
[2018-11-26] MEDS: IPRATRPIUM/ALBUTEROL 0.5/2.5MG 3 ML NEBU. NEB SCH ×3 (11:37→20:17)
[2018-11-26] MEDS: BUDESONIDE 0.5 MG/2 ML NEBU. NEB SCH ×2 (11:37→20:17)
[2018-11-26] MEDS ORDERED: INSULIN LISPRO 300 UNITS/3 ML INSULN.PEN. SQ ONE ×4 (11:45→23:30)
[2018-11-26] MEDS: HYDROcodone/APAP 5/325MG 1 TAB TABLET PO PRN ×2 (12:01→21:22)
[2018-11-26] MEDS ORDERED: NICOTINE 21MG PATCH. TD PRN (12:45)
--- NOTE | 2018-11-26 13:47 | PDOC ---
Provider Note Provider Note Informed by RN/ consult cancelled ABELINO CELESTIN MD Nov 26, 2018 13:47
[2018-11-26 15:00] VITALS: BP 180/76
[2018-11-26] MEDS ORDERED: NON FORMULARY ITEM (Fluticasone/Salmeterol (Advair 250-50 Diskus) 1 EACH) IH SCH (16:00)
[2018-11-26] MEDS: WARFARIN 5 MG TABLET. PO SCH (16:38)
[2018-11-26] MEDS: traMADol 50 MG TABLET PO PRN (16:38)
[2018-11-26 20:00] VITALS: BP 139/55
[2018-11-26] MEDS ORDERED: EZETIMIBE PO SCH (21:00)
[2018-11-26] MEDS ORDERED: SIMVASTATIN PO SCH (21:00)
[2018-11-26] MEDS ORDERED: MONTELUKAST SODIUM 10 MG TABLET. PO SCH (21:00)
[2018-11-26 23:09] VITALS: BP 141/50
[2018-11-27] MEDS: traMADol 50 MG TABLET PO PRN (01:11)
[2018-11-27 03:20] VITALS: BP 137/56
[2018-11-27 04:40] LABS: PROTHROMBIN TIME PATIENT 24.4 SEC (11.7-14.0)
[2018-11-27] MEDS: BUDESONIDE 0.5 MG/2 ML NEBU. NEB SCH (06:18)
[2018-11-27] MEDS: IPRATRPIUM/ALBUTEROL 0.5/2.5MG 3 ML NEBU. NEB SCH ×2 (06:18→11:28)
[2018-11-27 07:00] VITALS: BP 134/51
[2018-11-27] MEDS: NON FORMULARY ITEM (Linaclotide (Linzess) 145 MCG) PO SCH (07:00)
--- NOTE | 2018-11-27 08:25 | PDOC ---
PROGRESS NOTES Subjective Subjective Patient states that her breathing is some better and agrees that she could go home later today. Objective Objective Vital Signs Date Time Temp Pulse Resp B/P (MAP) Pulse Ox O2 Delivery O2 Flow Rate FiO2 11/27/18 06:19 96 Room Air 11/27/18 03:20 98.0 80 16 137/56 (83) 98.0 Intake and Output 11/27/18 06:59 Intake Total 3200 ml Output Total 2600 ml Balance 600 ml Intake Oral 3200 ml Output Urine Total 2600 ml # Voids 1 Physical Exam Abdomen: Normal bowel sounds, Soft, No tenderness Heart: Regular rate Extremities: No edema General: Alert, Oriented X3, No acute distress Lungs: Other (BS mildly decreased throughout, no wheezes heard) Assessment Assessment Problems Medical Problems: (1) COPD exacerbation Status: Acute Plan Plan of Care 1. Asthma exacerbation - improved. Home today on her usual inhalers. Patient does not feel she needs further Prednisone at home at this time. 2. chronic anxiety - stable, continue Cymbalta. Will send home with a scrip for low dose Ativan to use prn as patient's anxiety can sometimes contribute to her shortness of breath. 3. DM2 - glucose elevated due to steroids. Continue insulins. 4. HTN - controlled, continue home medication. 5. anticoagulation - INR therapeutic on patient's usual dose of 10mg Coumadin. Comment Review of Relevant I have reviewed the following items cameron (where applicable) has been applied. Labs Laboratory Tests Test 11/26/18 05:00 11/26/18 10:57 11/26/18 11:45 11/26/18 14:07 Prothrombin Time 23.5 SEC (11.7-14.0) Prothromb Time International Ratio 2.1 (0.8-1.1) Troponin I Quantitative < 0.017 ng/mL (0.000-0.055) Glucose (Fingerstick) 536 mg/dL (70-99) 503 mg/dL (70-99) 545 mg/dL (70-99) Test 11/26/18 16:33 11/26/18 20:37 11/26/18 22:40 11/27/18 03:30 Glucose (Fingerstick) 458 mg/dL (70-99) 485 mg/dL (70-99) 451 mg/dL (70-99) Prothrombin Time 24.4 SEC (11.7-14.0) Prothromb Time International Ratio 2.2 (0.8-1.1) Test 11/27/18 07:37 Glucose (Fingerstick) 409 mg/dL (70-99) Laboratory Tests Test 11/26/18 10:57 11/26/18 11:45 11/26/18 14:07 11/26/18 16:33 Glucose (Fingerstick) 536 mg/dL (70-99) 503 mg/dL (70-99) 545 mg/dL (70-99) 458 mg/dL (70-99) Test 11/26/18 20:37 11/26/18 22:40 11/27/18 03:30 11/27/18 07:37 Glucose (Fingerstick) 485 mg/dL (70-99) 451 mg/dL (70-99) 409 mg/dL (70-99) Prothrombin Time 24.4 SEC (11.7-14.0) Prothromb Time International Ratio 2.2 (0.8-1.1) Medications Current Medications Ondansetron HCl (Zofran) 4 mg PRN Q8HRS PRN IV NAUSEA/VOMITING Last administered on 11/26/18 11:03; Start 11/26/18 at 03:30; Stop 11/27/18 at 03:29 ; Status DC Sodium Chloride 1,000 ml @ 125 mls/hr Q8H IV Last administered on 11/26/18at 06 :18; Start 11/26/18 at 03:30; Stop 11/26/18 at 09:25; Status DC Acetaminophen (Tylenol) 650 mg PRN Q4HRS PRN PO FEVER Last administered on 11/26at 08:06; Start 11/26/18 at 03:30; Stop 11/27/18 at 03:29; Status DC Albuterol/ Ipratropium (Duoneb) 3 ml RTQID NEB Last administered on 11/26/18at 06:23; Start 11/26/18 at 08:00; Stop 11/26/18 at 09:49; Status DC Lorazepam (Ativan) 1 mg 1X ONCE IV Last administered on 11/26/18at 06:18; Start 11/26/18 at 03:45; Stop 11/26/18 at 03:46; Status DC Clonidine HCl (Catapres) 0.1 mg PRN Q1HR PRN PO HYPERTENSION, SEE COMMENTS Last administered on 11/26/18 08:05; Start 11/26/18 at 05:15; Stop 11/26/18 at 09:25; Status DC Lorazepam (Ativan) 0.5 mg PRN Q8HRS PRN PO ANXIETY / AGITATION; Start 11/26/18 at 09:30 Insulin Human Lispro (HumaLOG) 0-9 UNITS TIDWMEALS SQ Last administered on 11/26 16:42; Start 11/26/18 at 12:00 Dextrose (Dextrose 50%-Water Syringe) 12.5 gm PRN Q15MIN PRN IV SEE COMMENTS; Start 11/26/18 at 09:30 Methylprednisolone Sodium Succinate (SOLU-Medrol 125MG VIAL) 60 mg BID IV Last administered on 11/26/18 21:21; Start 11/26/18 at 10:00 Diphenhydramine HCl (Benadryl) 25 mg PRN Q4HRS PRN PO NAUSEA 2ND CHOICE Last administered on 11/26/18 21:24; Start 11/26/18 at 09:30 Famotidine (Pepcid) 20 mg BID PO Last administered on 11/26/18 21:21; Start at 10:30 Acetaminophen/ Hydrocodone Bitart (Lortab 5/325) 1 tab PRN Q6HRS PRN PO SEVERE PAIN Last administered on 11/26/18 21:22; Start 11/26/18 at 09:30 Albuterol/ Ipratropium (Duoneb) 3 ml RTQID NEB Last administered on 11/27/18 06:18; Start 11/26/18 at 12:00 Lisinopril (Prinivil) 20 mg DAILY PO Last administered on 11/26/18 10:58; Start 11/26/18 at 10:30 Metoprolol Succinate (Toprol Xl) 25 mg DAILY PO Last administered on 11/26/18 10:58; Start 11/26/18 at 10:30 Fish Oil (Fish Oil) 1,000 mg DAILY PO Last administered on 11/26/18 10:59; Start 11/26/18 at 10:30 Ondansetron HCl (Zofran Odt) 4 mg PRN TID PRN PO NAUSEA/VOMITING Last administered on 11/27/18 01:04; Start 11/26/18 at 09:30 Tramadol HCl (Ultram) 50 mg PRN Q6HRS PRN PO MODERATE PAIN Last administered on 11/27/18 01:11; Start 11/26/18 at 09:30 Duloxetine HCl (Cymbalta) 90 mg DAILY PO Last administered on 11/26/18at 10:56; Start 11/26/18 at 10:30 Non-Formulary Medication (Ezetimibe/ Simvastatin (Vytorin 10-10 Mg Tablet)) 1 each HS PO ; Start 11/26/18 at 21:00; Status UNV Non-Formulary Medication (Fluticasone/ Salmeterol (Advair 250-50 Diskus)) 1 each BID94 IH ; Start 11/26/18 at 16:00; Status UNV Insulin Glargine (Lantus) 50 units BID SQ Last administered on 11/26/18 21:27 ; Start 11/26/18 at 10:30 Insulin Human Lispro (HumaLOG) 15 units TIDWMEALS SQ Last administered on 16:44; Start 11/26/18 at 12:00 Non-Formulary Medication (Linaclotide (Linzess)) 145 mcg DAILY07 PO ; Start 07/07 at 07:00; Status UNV Meclizine HCl (Antivert) 25 mg PRN TID PRN PO DIZZINESS; Start 11/26/18 at 10: 00 Meloxicam (Mobic) 15 mg DAILY PO Last administered on 11/26/18at 10:59; Start at 10:30 Montelukast Sodium (Singulair) 10 mg QHS PO Last administered on 11/26/18 21: 21; Start 11/26/18 at 21:00 Non-Formulary Medication (Orphenadrine Citrate ) 1 tab BID PRN PO MUSCLE SPASMS ; Start 11/26/18 at 09:30; Status UNV Non-Formulary Medication (Tiotropium [place] (Spiriva)) 18 mcg DAILY IH ; Start 11/27/18 at 09:00; Status UNV Warfarin Sodium (Coumadin) 10 mg DAILY16 PO Last administered on 11/26/18at 16: 38; Start 11/26/18 at 16:00 Budesonide (Pulmicort) 0.5 mg RTBID NEB Last administered on 11/27/18at 06:18; Start 11/26/18 at 10:30 EZETIMIBE (Zetia) 10 mg DAILY PO Last administered on 11/26/18at 11:05; Start at 10:30 Simvastatin (Zocor) 10 mg QHS PO Last administered on 11/26/18at 21:21; Start at 10:30 Warfarin Sodium (Coumadin Per Physician) 1 each PRN DAILY PRN MC SEE COMMENTS Last administered on 11/26/18at 15:10; Start 11/26/18 at 11:45 Insulin Human Lispro (HumaLOG) 20 units 1X ONCE SQ Last administered on at 12:04; Start 11/26/18 at 11:45; Stop 11/26/18 at 11:48; Status DC Nicotine (Nicoderm Cq 21mg) 1 patch PRN DAILY PRN TD SMOKING CESSATION; Start 11/26/18 at 12:45; Status UNV Insulin Human Lispro (HumaLOG) 20 units 1X ONCE SQ Last administered on at 14:44; Start 11/26/18 at 14:45; Stop 11/26/18 at 14:46; Status DC Insulin Human Lispro (HumaLOG) 20 units 1X ONCE SQ Last administered on at 21:28; Start 11/26/18 at 21:30; Stop 11/26/18 at 21:31; Status DC Insulin Human Lispro (HumaLOG) 10 units 1X ONCE SQ Last administered on at 23:28; Start 11/26/18 at 23:30; Stop 11/26/18 at 23:31; Status DC Active Scripts Active Orphenadrine Citrate 100 Mg Tablet.er 1 Tab PO BID PRN Tramadol Hcl 50 Mg Tablet 50 Mg PO Q6HRS PRN Coumadin (Warfarin Sodium) 10 Mg Tablet 1 Tab PO DAILY Mobic (Meloxicam) 15 Mg Tablet 1 Tab PO DAILY Meclizine Hcl 25 Mg Tablet 1 Tab PO TID PRN Pepcid (Famotidine) 20 Mg Tablet 20 Mg PO BID [place] 5-325 Tablet (Acetaminophen/Hydrocodone Bitart) 1 Each Tablet 1 Tab PO PRN Q6HRS PRN Duoneb 0.5-3(2.5) Mg/3 Ml (Albuterol/Ipratropium) 3 Ml Ampul.neb 3 Ml NEB QID Linzess (Linaclotide) 145 Mcg Capsule 145 Mcg PO DAILY07 30 Days Fish Oil 1,000 Mg Capsule (Trevor-3 Fatty Acids/Fish Oil) 1 Each Capsule 1,000 Mg PO DAILY 30 Days Zofran Odt (Ondansetron) 4 Mg Tab.rapdis 4 Mg PO TID PRN Benadryl (Diphenhydramine Hcl) 25 Mg Capsule 25 Mg PO PRN Q4HRS PRN Reported Humalog (Insulin Lispro) 100 Unit/1 Ml Cartridge 15 Unit SQ TIDWMEALS Lantus (Insulin Glargine,Hum.rec.anlog) 100 Unit/1 Ml Vial 50 Unit SQ BID Lisinopril 20 Mg Tablet 1 Tab PO DAILY Metoprolol Succinate ( Xl ) (Metoprolol Succinate) 25 Mg Tab.er.24h 1 Tab PO DAILY Vytorin 10-10 Mg Tablet (Ezetimibe/Simvastatin) 1 Each Tablet 1 Each PO HS Xopenex Hfa (Levalbuterol Tartrate) 15 Gm Hfa.aer.ad 15 Gm IH PRN BID PRN Spiriva (Tiotropium [place]) 18 Mcg Cap.w.dev 18 Mcg IH DAILY Advair 250-50 Diskus (Fluticasone/Salmeterol) 1 Each Disk.w.dev 1 Each IH BID94 Cymbalta (Duloxetine Hcl) 60 Mg Capsule.dr 90 Mg PO DAILY Singulair Tablet (Montelukast Sodium) 10 Mg Tablet 10 Mg PO HS Vitals/I & O Vital Sign - Last 24 Hours 11/26/18 11/26/18 11/26/18 11/26/18 10:58 10:58 11:00 11:37 Temp 98.2 98.2 Pulse 90 90 90 Resp 18 B/P (MAP) 150/64 150/64 150/64 (92) Pulse Ox 97 94 O2 Delivery Room Air Room Air 11/26/18 11/26/18 11/26/18 11/26/18 12:01 15:00 16:11 16:38 Temp 98.0 98.0 Pulse 88 Resp 18 B/P (MAP) 180/76 (110) Pulse Ox 91 O2 Delivery Room Air Room Air Room Air Room Air 11/26/18 11/26/18 11/26/18 11/26/18 17:44 20:00 20:00 20:19 Temp 98.0 98.0 Pulse 86 Resp 16 B/P (MAP) 139/55 (83) Pulse Ox 94 96 O2 Delivery Room Air Room Air Room Air Room Air 11/26/18 11/26/18 11/26/18 11/26/18 20:20 21:22 22:30 23:09 Temp 98.1 98.1 Pulse 87 Resp 16 16 B/P (MAP) 141/50 (80) Pulse Ox 96 95 95 O2 Delivery Room Air Room Air Room Air Room Air 11/27/18 11/27/18 11/27/18 11/27/18 01:11 03:20 06:18 06:19 Temp 98.0 98.0 Pulse 80 Resp 14 16 B/P (MAP) 137/56 (83) Pulse Ox 92 96 96 O2 Delivery Room Air Room Air Room Air Room Air Intake and Output 11/26/18 11/26/18 11/27/18 14:59 22:59 06:59 Intake Total 3200 ml Output Total 2600 ml Balance 600 ml NIKO GIBBONS MD Nov 27, 2018 08:24
[2018-11-27] MEDS ORDERED: LORA0.5T96 PO (08:27)
[2018-11-27] MEDS ORDERED: ACETAMINOPHEN 500 MG TABLET PO PRN (08:30)
[2018-11-27] MEDS: EZETIMIBE 10 MG TABLET. PO SCH (09:00)
[2018-11-27] MEDS ORDERED: NON FORMULARY ITEM (Tiotropium Bromide (Spiriva) 18 MCG) IH SCH (09:00)
[2018-11-27] MEDS: MELOXICAM 7.5 MG TABLET PO SCH (09:32)
[2018-11-27] MEDS: OMEGA-3 FATTY ACIDS/FISH OIL 1,000 MG CAPSULE. PO SCH (09:32)
[2018-11-27] MEDS: DULoxetine HCL 30 MG CAPSULE.DR PO SCH (09:32)
[2018-11-27] MEDS: LISINOPRIL 20 MG TABLET PO SCH (09:33)
[2018-11-27] MEDS: FAMOTIDINE 20 MG TABLET. PO SCH (09:33)
[2018-11-27] MEDS: METOPROLOL SUCC 24HR ER 25 MG TAB.ER.24H. PO SCH (09:34)
[2018-11-27] MEDS: INSULIN LISPRO 300 UNITS/3 ML INSULN.PEN. SQ SCH ×4 (09:44→12:16)
[2018-11-27] MEDS: INSULIN GLARGINE 300 UNITS/3 ML INSULN.PEN. SQ SCH (09:46)
[2018-11-27 11:00] VITALS: BP 114/67
[2018-11-27 15:00] VITALS: BP 118/64
[2018-11-27] MEDS: WARFARIN 5 MG TABLET. PO SCH (16:44)
--- NOTE | 2018-11-27 16:48 | NUR ---
Discharge Note: ELY CARDOZA [address] [place] [address] Discharge instructions and discharge home medications reviewed with Patient and a copy given. All questions have been answered and understanding verbalized. The following instructions and handouts were given: Asthma Exacerbation Prevention Discontinued lines and drains: 1 x PIV line was discontinued with no complications Patient discharged to home via [facility]
--- NOTE | 2018-11-27 18:50 | DS ---
DATE OF DISCHARGE: 11/27/2018 CHIEF COMPLAINT: Shortness of breath. HISTORY OF PRESENT ILLNESS: The patient is a 68-year-old female with a long history of asthma. She was originally seen in our Emergency Department on the evening prior to this admission with the above complaint. At that time, she received a breathing treatment and a dose of IV Decadron. Her chest x-ray was clear and she was not hypoxic on room air. She stated that she felt better after the above measures and so she was discharged to home. She returned to the Emergency Department later on the night of admission reporting that her symptoms had recurred and she was having significant shortness of air. Treatment was started and she was admitted for further care. HOSPITAL COURSE: The patient was started on Solu-Medrol and nebulized breathing treatments for treatment of her asthma exacerbation. She continued without hypoxia on room air. Her symptoms and chest exam have improved and she feels that she could go home later today. She does not feel that she will need further prednisone at this time, but knows that she can always call our office to ask for this if she starts to develop problems at home. The patient has chronic anxiety and takes Cymbalta daily for this. She agrees that her anxiety sometimes contributes to her feelings of shortness of air. We will try her on a low dose of p.r.n. lorazepam to help with this. She is advised to use it sparingly, but to take it if needed to see if this helps her breathing. The patient's other chronic medical problems are stable on her usual medication. She has some hyperglycemia due to the steroids, but she is aware of the advice to increase her insulin as needed until this improves. Her hypertension is controlled with her usual medication. Her INR is therapeutic at 2.2 on her usual dose of Coumadin 10 mg daily. The patient feels better and will be discharged to home today. FINAL DIAGNOSES: 1. Acute exacerbation of asthma. 2. Chronic anxiety. 3. Diabetes mellitus type 2, insulin dependent. 4. Hypertension. 5. Chronic anticoagulation. DISCHARGE MEDICATIONS: Remain the same as at admission with the addition of lorazepam 0.5 mg 1 p.o. q.8 hours p.r.n. anxiety. FOLLOWUP: With Dr. Castro as needed. NIKO GIBBONS MD DR: CECELIA/alyce JOB#: [id number] / [id number] TRENT
== END 2018-11-27 16:47 | disposition home or self-care (01) | DRG 202 ==
LOC: ER 03:22 → 6 SOUTH 03:28
PROVIDERS: ADMIT Family Medicine; ATTEND Family Medicine
DX: J45.901 Unspecified asthma with (acute) exacerbation (principal); J44.1 Chronic obstructive pulmonary disease with (acute) exacerbation; I10 Essential (primary) hypertension; E11.65 Type 2 diabetes mellitus with hyperglycemia; F41.9 Anxiety disorder, unspecified; I25.10 Atherosclerotic heart disease of native coronary artery without angina pectoris; K21.9 Gastro-esophageal reflux disease without esophagitis; K58.9 Irritable bowel syndrome, unspecified; T38.0X5A Adverse effect of glucocorticoids and synthetic analogues, initial encounter; Z79.01 Long term (current) use of anticoagulants; Z79.4 Long term (current) use of insulin; Z86.711 Personal history of pulmonary embolism; Z90.49 Acquired absence of other specified parts of digestive tract; Z90.710 Acquired absence of both cervix and uterus; Z98.42 Cataract extraction status, left eye; Z98.41 Cataract extraction status, right eye; Z86.718 Personal history of other venous thrombosis and embolism; Z88.0 Allergy status to penicillin; Z88.2 Allergy status to sulfonamides; Z88.8 Allergy status to other drugs, medicaments and biological substances; Z79.899 Other long term (current) drug therapy; Y92.89 Other specified places as the place of occurrence of the external cause
CPT/HCPCS: 36415; 71045; 80053; 82962; 83880; 84484; 85025; 85610; 93005; 94640; 94760; J1815; J2060; J2405; J2930; J7030; J7620; J7626; Q0162; Q0163; 99285-25

== ENCOUNTER 2019-01-03 01:27 | Emergency (ER) | payer BC, OTHER ==
[~2019-01-03] VITALS: Ht 165.1 cm; Wt 132.4 kg
[~2019-01-03 01:27] MED LIST changes: +LORA0.5T96 PO
[2019-01-03] MEDS ORDERED: IV NORMAL SALINE 1000ML BAG 1,000 ML IV ONE (02:15)
[2019-01-03] MEDS ORDERED: FAMOTIDINE 20 MG/2 ML VIAL IVP ONE (02:30)
[2019-01-03] MEDS ORDERED: MORPHINE SULFATE 4 MG/ML VIAL. IV ONE ×2 (02:30→04:30)
[2019-01-03 02:41] LABS: BASO # 0.1 x10^3/uL (0.0-0.2); BASO % 1 % (0-3); EOS # 0.2 x10^3/uL (0.0-0.7); EOS % 3 % (0-3); HEMATOCRIT 40.2 % (36.0-47.0); HEMOGLOBIN 13.7 g/dL (12.0-15.5); LYMPH # 3.5 x10^3/uL (1.0-4.8); LYMPH % 40 % (24-48); MEAN CORPUSCULAR HEMOGLOBIN 29 pg (25-35); MEAN CORPUSCULAR HGB CONC 34 g/dL (31-37); MEAN CORPUSCULAR VOLUME 85 fL (79-100); MONO # 0.6 x10^3/uL (0.0-1.1); MONO % 7 % (0-9); NEUT # 4.3 x10^3uL (1.8-7.7); NEUT % 49 % (31-73); PLATELET COUNT 302 x10^3/uL (140-400); RED BLOOD COUNT 4.76 x10^6/uL (3.50-5.40); RED CELL DISTRIBUTION WIDTH 14.5 % (11.5-14.5); WHITE BLOOD COUNT 8.8 x10^3/uL (4.0-11.0)
[2019-01-03 02:43] LABS: BILIRUBIN,URINE NEGATIVE (NEG); CLARITY,URINE CLEAR; COLOR,URINE YELLOW; NITRITE,URINE NEGATIVE (NEG); PROTEIN,URINE NEGATIVE (NEG-TRACE); UROBILINOGEN,URINE 0.2 mg/dL (0.2 mg/dL)
[2019-01-03 02:50] LABS: PROTHROMBIN TIME PATIENT 28.3 SEC (11.7-14.0)
[2019-01-03 02:52] LABS: BACTERIA,URINE MODERATE /HPF (0-FEW); RBC,URINE 0 /HPF (0-2); SQUAMOUS EPITHELIAL CELL,UR MOD /LPF
[2019-01-03 03:26] LABS: CALCIUM 8.9 mg/dL (8.5-10.1); CREATININE 0.9 mg/dL (0.6-1.0); GFR 62.5; POTASSIUM 3.6 mmol/L (3.5-5.1)
[2019-01-03 03:31] LABS: ALBUMIN 3.2 g/dL (3.4-5.0); ALBUMIN/GLOBULIN RATIO 0.8 (1.0-1.7); MAGNESIUM 1.4 mg/dL (1.8-2.4); TOTAL BILIRUBIN 0.3 mg/dL (0.2-1.0)
[2019-01-03] MEDS ORDERED: MAGNESIUM SULFATE 2GM 50 ML IV ONE (04:15)
--- NOTE | 2019-01-03 05:03 | RAD ---
PQRS Compliance Statement: One or more of the following individualized dose reduction techniques were utilized for this examination: 1. Automated exposure control 2. Adjustment of the mA and/or kV according to patient size 3. Use of iterative reconstruction technique CT ABDOMEN PELVIS WO CONTRAST Clinical Indication: Lower abdominal pain. Comparison: CT abdomen and pelvis with contrast, September 03, 2018. Technique: Helical CT imaging of the abdomen and pelvis is performed without IV or oral contrast. Findings: Evaluation of solid organs and bowel is limited without oral and IV contrast, decreasing sensitivity for detection of pathology. Lung bases essentially clear. Coronary artery disease. Cardiac size normal. Cholecystectomy. There is hepatomegaly. Liver is homogeneous. Spleen, pancreas, and adrenal glands are normal. Abdominal aorta is normal caliber. No hydronephrosis. Stomach unremarkable. Diastasis of rectus abdominis muscles with protrusion of mesenteric fat and bowel. Question whether there is ventral hernia mesh in this location. There is no small bowel obstruction. Appendix not seen, no secondary signs of appendicitis. There is no colon wall thickening. No abdominal adenopathy or free fluid. Urinary bladder is normal. Hysterectomy. No pelvic free fluid. Vacuum disc phenomenon in the lumbar spine. Probably reactive endplate sclerosis of L4/L5. IMPRESSION: 1. No acute abdominal or pelvic abnormality. 2. Unchanged hepatomegaly. Electronically signed by: Elias Caldera MD (01/03/2019 5:00 AM) [id number]
[2019-01-03] MEDS ORDERED: HYOS0.1265 SL (05:15)
[2019-01-03] MEDS ORDERED: ONDA4TAB12 PO (05:15)
[2019-01-03] MEDS ORDERED: FAMO-63 PO (05:15)
--- NOTE | 2019-01-03 05:15 | PHYS DOC ---
Past Medical History Past Medical History: Asthma, Diabetes-Type II, DVT, Hypertension, Migraines, Other Additional Past Medical Histor: asthma, PE, chronic back/abdominal pain Past Surgical History: Appendectomy, Cholecystectomy, Hysterectomy, Other Additional Past Surgical Histo: bilateral cataract, bilater shoulder, hernia x7; colon; Alcohol Use: None Drug Use: None Adult General Chief Complaint Chief Complaint: ABDOMINAL PAIN HPI HPI Patient is a 68 year old [f__sex] who presents with [] Review of Systems Review of Systems Constitutional: Denies fever or chills [] Eyes: Denies change in visual acuity, redness, or eye pain [] HENT: Denies nasal congestion or sore throat [] Respiratory: Denies cough or shortness of breath [] Cardiovascular: No additional information not addressed in HPI [] GI: Denies abdominal pain, nausea, vomiting, bloody stools or diarrhea [] : Denies dysuria or hematuria [] Musculoskeletal: Denies back pain or joint pain [] Integument: Denies rash or skin lesions [] Neurologic: Denies headache, focal weakness or sensory changes [] Endocrine: Denies polyuria or polydipsia [] All other systems were reviewed and found to be within normal limits, except as documented in this note. Current Medications Current Medications Current Medications Medications (Trade) Dose Ordered Sig/Irish Start Time Stop Time Status Last Admin Dose Admin Famotidine (Pepcid Vial) 20 mg 1X ONCE 01/03/19 02:30 01/03/19 03:31 DC 01/03/19 03:15 20 MG Magnesium Sulfate 50 ml @ 25 mls/hr 1X ONCE 01/03/19 04:15 01/03/19 06:14 01/03/19 04:38 25 MLS/HR Morphine Sulfate (Morphine Sulfate) 4 mg 1X ONCE 01/03/19 04:30 01/03/19 04:49 DC 01/03/19 04:38 4 MG Sodium Chloride 1,000 ml @ 1,000 mls/hr 1X ONCE 01/03/19 02:15 01/03/19 03:14 DC 01/03/19 03:14 1,000 MLS/HR Allergies Allergies Allergies Coded Allergies Type Severity Reaction Last Updated Verified Penicillins Allergy Severe itching, dry mouth, tongue swells 01/24/18 Yes Sulfa (Sulfonamide Antibiotics) Allergy Intermediate ITCHING DRY MOUTH, hives/swelling 12/16/15 Yes fentanyl Allergy Intermediate 12/16/15 Yes hydromorphone HCl Allergy Intermediate MORPHINE OK 12/16/15 Yes methylprednisolone Allergy Intermediate RED MAN SYNDROME 10/11/16 Yes prednisone Allergy Intermediate RED MED SYNDROME 10/11/16 Yes gluten Allergy Mild bloating 04/18/17 Yes I S O L A T I O N *CONTACT* Allergy Unknown 02/04/17 Yes oxycodone HCl Adverse Reaction Intermediate "i FEEL LIKE I HAVE WORMS IN ME" 12/16/15 Yes Physical Exam Physical Exam Constitutional: Well developed, well nourished, no acute distress, non-toxic appearance. [] HENT: Normocephalic, atraumatic, bilateral external ears normal, oropharynx moist, no oral exudates, nose normal. [] Eyes: PERRLA, EOMI, conjunctiva normal, no discharge. [] Neck: Normal range of motion, no tenderness, supple, no stridor. [] Cardiovascular:Heart rate regular rhythm, no murmur [] Lungs & Thorax: Bilateral breath sounds clear to auscultation [] Abdomen: Bowel sounds normal, soft, no tenderness, no masses, no pulsatile masses. [] Skin: Warm, dry, no erythema, no rash. [] Back: No tenderness, no CVA tenderness. [] Extremities: No tenderness, no cyanosis, no clubbing, ROM intact, no edema. [] Neurologic: Alert and oriented X 3, normal motor function, normal sensory function, no focal deficits noted. [] Psychologic: Affect normal, judgement normal, mood normal. [] Current Patient Data Vital Signs Vital Signs Date Time Temp Pulse Resp B/P (MAP) Pulse Ox O2 Delivery O2 Flow Rate FiO2 01/03/19 04:38 18 93 Room Air 01/03/19 03:28 84 160/75 (103) 01/03/19 02:07 98.4 98.4 Lab Values Laboratory Tests Test 01/03/19 02:30 01/03/19 02:32 01/03/19 03:00 Urine Color Yellow Urine Clarity Clear Urine pH 6.0 Urine Specific [place] 1.010 Urine Protein Negative mg/dL (NEG-TRACE) Urine Glucose (UA) 100 mg/dL (NEG) Urine Ketones (Stick) Negative mg/dL (NEG) Urine Blood Negative (NEG) Urine Nitrite Negative (NEG) Urine Bilirubin Negative (NEG) Urine Urobilinogen Dipstick 0.2 mg/dL (0.2 mg/dL) Urine Leukocyte Esterase Negative (NEG) Urine RBC 0 /HPF (0-2) Urine WBC 1-4 /HPF (0-4) Urine Squamous Epithelial Cells Mod /LPF Urine Bacteria Moderate /HPF (0-FEW) White Blood Count 8.8 x10^3/uL (4.0-11.0) Red Blood Count 4.76 x10^6/uL (3.50-5.40) Hemoglobin 13.7 g/dL (12.0-15.5) Hematocrit 40.2 % (36.0-47.0) Mean Corpuscular Volume 85 fL (79-100) Mean Corpuscular Hemoglobin 29 pg (25-35) Mean Corpuscular Hemoglobin Concent 34 g/dL (31-37) Red Cell Distribution Width 14.5 % (11.5-14.5) Platelet Count 302 x10^3/uL (140-400) Neutrophils (%) (Auto) 49 % (31-73) Lymphocytes (%) (Auto) 40 % (24-48) Monocytes (%) (Auto) 7 % (0-9) Eosinophils (%) (Auto) 3 % (0-3) Basophils (%) (Auto) 1 % (0-3) Neutrophils # (Auto) 4.3 x10^3uL (1.8-7.7) Lymphocytes # (Auto) 3.5 x10^3/uL (1.0-4.8) Monocytes # (Auto) 0.6 x10^3/uL (0.0-1.1) Eosinophils # (Auto) 0.2 x10^3/uL (0.0-0.7) Basophils # (Auto) 0.1 x10^3/uL (0.0-0.2) Prothrombin Time 28.3 SEC (11.7-14.0) H Prothrombin Time INR 2.7 (0.8-1.1) H PTT 54 SEC (24-38) H Sodium Level 133 mmol/L (136-145) L Potassium Level 3.6 mmol/L (3.5-5.1) Chloride Level 96 mmol/L (98-107) L Carbon Dioxide Level 25 mmol/L (21-32) Anion Gap 12 (6-14) Blood Urea Nitrogen 10 mg/dL (7-20) Creatinine 0.9 mg/dL (0.6-1.0) Estimated GFR (Cockcroft-Gault) 62.5 BUN/Creatinine Ratio 11 (6-20) Glucose Level 275 mg/dL (70-99) H Calcium Level 8.9 mg/dL (8.5-10.1) Magnesium Level 1.4 mg/dL (1.8-2.4) L Total Bilirubin 0.3 mg/dL (0.2-1.0) Aspartate Amino Transferase (AST) 23 U/L (15-37) Alanine Aminotransferase (ALT) 25 U/L (14-59) Alkaline Phosphatase 116 U/L (46-116) Creatine Kinase 117 U/L (26-192) Creatine Kinase MB (Mass) 0.8 ng/mL (0.0-3.6) Creatine Kinase MB Relative Index 0.7 % (0-4) Total Protein 7.0 g/dL (6.4-8.2) Albumin 3.2 g/dL (3.4-5.0) L Albumin/Globulin Ratio 0.8 (1.0-1.7) L Lipase 179 U/L (73-393) Laboratory Tests 01/03/19 02:32 Laboratory Tests 01/03/19 03:00 EKG EKG [] Radiology/Procedures Radiology/Procedures PROCEDURE: CT ABDOMEN PELVIS WO CONTRAST PQRS Compliance Statement: One or more of the following individualized dose reduction techniques were utilized for this examination: 1. Automated exposure control 2. Adjustment of the mA and/or kV according to patient size 3. Use of iterative reconstruction technique CT ABDOMEN PELVIS WO CONTRAST Clinical Indication: Lower abdominal pain. Comparison: CT abdomen and pelvis with contrast, September 03, 2018. Technique: Helical CT imaging of the abdomen and pelvis is performed without IV or oral contrast. Findings: Evaluation of solid organs and bowel is limited without oral and IV contrast, decreasing sensitivity for detection of pathology. Lung bases essentially clear. Coronary artery disease. Cardiac size normal. Cholecystectomy. There is hepatomegaly. Liver is homogeneous. Spleen, pancreas, and adrenal glands are normal. Abdominal aorta is normal caliber. No hydronephrosis. Stomach unremarkable. Diastasis of rectus abdominis muscles with protrusion of mesenteric fat and bowel. Question whether there is ventral hernia mesh in this location. There is no small bowel obstruction. Appendix not seen, no secondary signs of appendicitis. There is no colon wall thickening. No abdominal adenopathy or free fluid. Urinary bladder is normal. Hysterectomy. No pelvic free fluid. Vacuum disc phenomenon in the lumbar spine. Probably reactive endplate sclerosis of L4/L5. IMPRESSION: 1. No acute abdominal or pelvic abnormality. 2. Unchanged hepatomegaly. Electronically signed by: Elias Caldera MD (01/03/2019 5:00 AM) [place] [id number] Course & Med Decision Making Course & Med Decision Making Pertinent Labs and Imaging studies reviewed. (See chart for details) [] Dragon Disclaimer Dragon Disclaimer This electronic medical record was generated, in whole or in part, using a voice recognition dictation system. Departure Departure Impression: Primary Impression: Abdominal pain Additional Impression: Hypomagnesemia Disposition: 01 HOME, SELF-CARE Condition: STABLE Referrals: Meagan ALVAREZ MD (PCP) HAKEEM CRUZ MD Patient Instructions: Abdominal Pain (Nonspecific), Hypomagnesemia Scripts Hyoscyamine Sulfate (LEVSIN-SL) 0.125 Mg Tab.subl 1 TAB SL PRN Q4HRS PRN for PAIN, #20 TAB Prov: CHRISTI VILLAGRAN DO 01/03/19 Famotidine (PEPCID) 20 Mg Tablet 20 MG PO BID, #20 TAB Prov: CHRISTI VILLAGRAN DO 01/03/19 Ondansetron (ONDANSETRON ODT) 4 Mg Tab.rapdis 1 TAB PO PRN Q6-8HRS PRN for NAUSEA, #16 TAB Prov: CHRISTI VILLAGRAN DO 01/03/19 Problem Qualifiers Primary Impression: Abdominal pain Abdominal location: generalized Qualified Codes: R10.84 - Generalized abdominal pain CHRISTI VILLAGRAN DO January 03, 2019 05:15
[2019-01-03 05:43] VITALS: BP 121/61
== END 2019-01-03 06:30 | disposition home or self-care (01) ==
LOC: ER 01:27
DX: R10.84 Generalized abdominal pain (principal); E83.42 Hypomagnesemia; J45.909 Unspecified asthma, uncomplicated; I10 Essential (primary) hypertension; E11.9 Type 2 diabetes mellitus without complications; G43.909 Migraine, unspecified, not intractable, without status migrainosus; Z86.718 Personal history of other venous thrombosis and embolism; G89.29 Other chronic pain; Z86.711 Personal history of pulmonary embolism; Z90.89 Acquired absence of other organs; Z90.49 Acquired absence of other specified parts of digestive tract; Z90.710 Acquired absence of both cervix and uterus; Z98.890 Other specified postprocedural states; Z88.0 Allergy status to penicillin; Z88.4 Allergy status to anesthetic agent; Z88.2 Allergy status to sulfonamides; Z88.5 Allergy status to narcotic agent; Z91.041 Radiographic dye allergy status; Z88.8 Allergy status to other drugs, medicaments and biological substances
CPT/HCPCS: 36415; 74176; 80053; 81001; 82553; 83690; 83735; 85025; 85610; 85730; 87086; 96365; 96375; 96376; 99285; J2270; J3475; J3490; J7030

== ENCOUNTER → 2019-02-11 | Outpatient (CLI) | payer BC, OTHER ==
[~2019-02-11] MED LIST changes: +MONT10TA49 PO; -MONT10TA6 PO; +ONDA4TAB12 PO; -PANT40TA5 PO; +PANT40TA77 PO
--- NOTE | 2019-02-11 15:35 | RAD ---
DATE: 02/11/2019 EXAM: MAMMO TIMA SCREENING BILATERAL HISTORY: Routine screening COMPARISON: 03/17/2013 This study was interpreted with the benefit of Computerized Aided Detection (CAD). Breast Density: SCATTERED The breast parenchyma shows scattered fibroglandular densities. Breast parenchyma level B. FINDINGS: 2-D and 3-D tomosynthesis imaging was performed in CC and MLO projections. There is stable breast asymmetry, probably related to previous breast biopsies. No new or enlarging breast densities are seen. Benign type calcifications are present. No suspicious microcalcifications have developed. IMPRESSION: There is no mammographic evidence of malignancy in either breast. BI-RADS CATEGORY: 2 BENIGN FINDING(S) RECOMMENDED FOLLOW-UP: 12M 12 MONTH FOLLOW-UP PQRS compliance statement: Patient information was entered into a reminder system with a target due date for the next mammogram. Mammography is a sensitive method for finding small breast cancers, but it does not detect them all and is not a substitute for careful clinical examination. A negative mammogram does not negate a clinically suspicious finding and should not result in delay in biopsying a clinically suspicious abnormality. "Our facility is accredited by the [employer] Mammography Program."
== END | disposition home or self-care (01) ==
LOC: MAMMO 14:15
PROVIDERS: ATTEND Nurse Practitioner Gerontology
DX: Z12.31 Encounter for screening mammogram for malignant neoplasm of breast (principal); N64.89 Other specified disorders of breast
CPT/HCPCS: 77063; 77067

== ENCOUNTER 2019-02-22 22:06 | Emergency (ER) | payer BC, OTHER ==
[~2019-02-22] VITALS: Ht 165.1 cm; Wt 129.3 kg
[2019-02-22 23:00] LABS: BASO # 0.1 x10^3/uL (0.0-0.2); BASO % 1 % (0-3); EOS # 0.2 x10^3/uL (0.0-0.7); EOS % 2 % (0-3); HEMATOCRIT 39.3 % (36.0-47.0); HEMOGLOBIN 13.3 g/dL (12.0-15.5); LYMPH # 3.7 x10^3/uL (1.0-4.8); LYMPH % 38 % (24-48); MEAN CORPUSCULAR HEMOGLOBIN 29 pg (25-35); MEAN CORPUSCULAR HGB CONC 34 g/dL (31-37); MEAN CORPUSCULAR VOLUME 86 fL (79-100); MONO # 0.5 x10^3/uL (0.0-1.1); MONO % 5 % (0-9); NEUT # 5.3 x10^3uL (1.8-7.7); NEUT % 54 % (31-73); PLATELET COUNT 290 x10^3/uL (140-400); RED BLOOD COUNT 4.55 x10^6/uL (3.50-5.40); RED CELL DISTRIBUTION WIDTH 14.7 % (11.5-14.5); WHITE BLOOD COUNT 9.8 x10^3/uL (4.0-11.0)
[2019-02-22 23:08] LABS: PROTHROMBIN TIME PATIENT 31.9 SEC (11.7-14.0)
[2019-02-22 23:17] LABS: CALCIUM 9.1 mg/dL (8.5-10.1); GFR 55.3; POTASSIUM 3.4 mmol/L (3.5-5.1)
[2019-02-22 23:23] LABS: ALBUMIN 3.3 g/dL (3.4-5.0); ALBUMIN/GLOBULIN RATIO 0.8 (1.0-1.7); TOTAL BILIRUBIN 0.2 mg/dL (0.2-1.0); TOTAL PROTEIN 7.3 g/dL (6.4-8.2)
[2019-02-22] MEDS ORDERED: IPRATRPIUM/ALBUTEROL 0.5/2.5MG 3 ML NEBU. NEB ONE (23:30)
[2019-02-22] MEDS ORDERED: diphenhydrAMINE 50 MG/ML VIAL IVP ONE (23:30)
[2019-02-22] MEDS ORDERED: predniSONE 10 MG TABLET PO ONE (23:30)
--- NOTE | 2019-02-22 23:46 | PHYS DOC ---
Past Medical History Past Medical History: Asthma, Diabetes-Type II, DVT, Hypertension, Migraines, Other Additional Past Medical Histor: asthma, PE, chronic back/abdominal pain Past Surgical History: Appendectomy, Cholecystectomy, Hysterectomy, Other Additional Past Surgical Histo: bilateral cataract, bilater shoulder, hernia x7; colon; Alcohol Use: None Drug Use: None Adult General Chief Complaint Chief Complaint: SHORTNESS OF BREATH [facility] HPI Patient is a 68 year old female, with a medical history of asthma, COPD, and diabetes, who presents with [asthma induced shortness of breath]. She reports the shortness of breath started at 5 pm today and was unrelieved by her inhaler and nebulizer. Between 5 pm and 10 pm she had used her zopinex inhaler 4 times and zopinex nebulizer 3 times without relief. She reports onset of dry cough starting around 5 pm as well. This is a typical asthma exacerbation per patient and she reports the humidity as the triggering event. She denies recent travel or sick contacts chest pain, diarrhea, constipation, headache, and visual farley ges. She admits to nausea and dry cough. Review of Systems Review of Systems Constitutional: Denies fever or chills Eyes: Denies change in visual acuity, redness, or eye pain HENT: Denies nasal congestion or sore throat Respiratory:[Admits dry cough and shortness of breath] Cardiovascular: No additional information not addressed in HPI GI: Denies abdominal pain, vomiting, bloody stools or diarrhea [Admits nausea] : Denies dysuria or hematuria Musculoskeletal: Denies back pain or joint pain Neurologic: Denies headache All other systems were reviewed and found to be within normal limits, except as documented in this note. Current Medications Current Medications Current Medications Medications (Trade) Dose Ordered Sig/Irish Start Time Stop Time Status Last Admin Dose Admin Albuterol/ Ipratropium (Duoneb) 3 ml 1X ONCE 02/22/19 23:30 02/22/19 23:31 DC 02/22/19 23:13 3 ML Diphenhydramine HCl (Benadryl) 25 mg 1X ONCE 02/22/19 23:30 02/22/19 23:31 DC 02/22/19 23:04 25 MG Prednisone (Prednisone) 50 mg 1X ONCE 02/22/19 23:30 02/22/19 23:31 DC 02/22/19 23:04 50 MG Allergies Allergies Allergies Coded Allergies Type Severity Reaction Last Updated Verified Penicillins Allergy Severe itching, dry mouth, tongue swells 01/24/18 Yes Sulfa (Sulfonamide Antibiotics) Allergy Intermediate ITCHING DRY MOUTH, hives/swelling 12/16/15 Yes fentanyl Allergy Intermediate 12/16/15 Yes hydromorphone HCl Allergy Intermediate MORPHINE OK 12/16/15 Yes methylprednisolone Allergy Intermediate RED MAN SYNDROME 10/11/16 Yes prednisone Allergy Intermediate RED MED SYNDROME 10/11/16 Yes gluten Allergy Mild bloating 04/18/17 Yes I S O L A T I O N *CONTACT* Allergy Unknown 02/04/17 Yes oxycodone HCl Adverse Reaction Intermediate "i FEEL LIKE I HAVE WORMS IN ME" 12/16/15 Yes Physical Exam Physical Exam Constitutional: Well developed, well nourished, mild distress, non-toxic appearance. [] HENT: Normocephalic, atraumatic, bilateral external ears normal, oropharynx moist, no oral exudates, nose normal. [] Eyes: PERRLA, EOMI, conjunctiva normal, no discharge. [] Cardiovascular:Heart rate tachycardic, regular rhythm, no murmur [] Lungs & Thorax: End expiratory wheezes heard b/l in upper and lower lung mei. Patient is visibly dyspneic and expires through pursed lips. Abdomen: Bowel sounds normal, soft, no tenderness, no masses, no pulsatile masses. Extremities: No tenderness, no cyanosis, no clubbing, ROM intact, no edema. Neurologic: Alert and oriented X 3, normal motor function, normal sensory function, no focal deficits noted. Current Patient Data Vital Signs Vital Signs Date Time Temp Pulse Resp B/P (MAP) Pulse Ox O2 Delivery O2 Flow Rate FiO2 02/23/19 00:36 98 19 191/78 (115) 93 Room Air 02/22/19 22:18 99.0 99.0 Lab Values Laboratory Tests Test 02/22/19 22:27 White Blood Count 9.8 x10^3/uL (4.0-11.0) Red Blood Count 4.55 x10^6/uL (3.50-5.40) Hemoglobin 13.3 g/dL (12.0-15.5) Hematocrit 39.3 % (36.0-47.0) Mean Corpuscular Volume 86 fL (79-100) Mean Corpuscular Hemoglobin 29 pg (25-35) Mean Corpuscular Hemoglobin Concent 34 g/dL (31-37) Red Cell Distribution Width 14.7 % (11.5-14.5) H Platelet Count 290 x10^3/uL (140-400) Neutrophils (%) (Auto) 54 % (31-73) Lymphocytes (%) (Auto) 38 % (24-48) Monocytes (%) (Auto) 5 % (0-9) Eosinophils (%) (Auto) 2 % (0-3) Basophils (%) (Auto) 1 % (0-3) Neutrophils # (Auto) 5.3 x10^3uL (1.8-7.7) Lymphocytes # (Auto) 3.7 x10^3/uL (1.0-4.8) Monocytes # (Auto) 0.5 x10^3/uL (0.0-1.1) Eosinophils # (Auto) 0.2 x10^3/uL (0.0-0.7) Basophils # (Auto) 0.1 x10^3/uL (0.0-0.2) Prothrombin Time 31.9 SEC (11.7-14.0) H Prothrombin Time INR 3.1 (0.8-1.1) H Sodium Level 130 mmol/L (136-145) L Potassium Level 3.4 mmol/L (3.5-5.1) L Chloride Level 91 mmol/L (98-107) L Carbon Dioxide Level 27 mmol/L (21-32) Anion Gap 12 (6-14) Blood Urea Nitrogen 12 mg/dL (7-20) Creatinine 1.0 mg/dL (0.6-1.0) Estimated GFR (Cockcroft-Gault) 55.3 BUN/Creatinine Ratio 12 (6-20) Glucose Level 408 mg/dL (70-99) H Calcium Level 9.1 mg/dL (8.5-10.1) Total Bilirubin 0.2 mg/dL (0.2-1.0) Aspartate Amino Transferase (AST) 25 U/L (15-37) Alanine Aminotransferase (ALT) 30 U/L (14-59) Alkaline Phosphatase 136 U/L (46-116) H YG-Wla-F-Type Natriuretic Peptide 167 pg/mL (0-124) H Total Protein 7.3 g/dL (6.4-8.2) Albumin 3.3 g/dL (3.4-5.0) L Albumin/Globulin Ratio 0.8 (1.0-1.7) L Laboratory Tests 02/22/19 22:27 Laboratory Tests 02/22/19 22:27 EKG EKG []nsr rate 99 no ischemic changes noted. Radiology/Procedures Radiology/Procedures [] Impressions: cxr neg acute Course & Med Decision Making Course & Med Decision Making Ms. Shah is a 68 year old female with a history of multiple asthma-induced visits to the emergency department for shortness of breath. After using 7 treatments before coming into the emergency department, she still had dyspnea, end expiratory wheezes, and dry cough. She was tachycardic and tremulous due to the multiple uses of her inhaler and nebulizer. Patient reports she responds best to breathing treatments and prednisone in the past. She is afebrile and has a dry cough, making asthma exacerbation more likely than pneumonia. Chest x ray, breathing treatments, and steroids were ordered. IV Benadryll was ordered because patient reports it is the only way to "stop the redness and rash" she gets when she receives prednisone. Pertinent Labs and Imaging studies reviewed. (See chart for details) re-eval, better after neb. frequent er visitor pt from my experience wth her is pretty close to baseline. no pna seen on cxr. d/c with prednisone f/u with pmd this week. [] Dragon Disclaimer Dragon Disclaimer This electronic medical record was generated, in whole or in part, using a voice recognition dictation system. Departure Departure Impression: Primary Impression: Asthma with exacerbation Disposition: HOME, SELF-CARE Condition: IMPROVED Referrals: Meagan ALVAREZ MD (PCP) Scripts Prednisone (PREDNISONE) 50 Mg Tablet 1 TAB PO DAILY, #5 TAB Prov: ZEN CHRISTENSEN MD 02/23/19 ZEN CHRISTENSEN MD Feb 22, 2019 23:46
[2019-02-23] MEDS ORDERED: PRED50TA PO (00:25)
[2019-02-23 00:36] VITALS: BP 191/78
--- NOTE | 2019-02-23 08:04 | RAD ---
Examination: PORTABLE CHEST 1V History: Cough, shortness of breath Comparison/Correlation: 11/25/2018 AP view of the chest Findings: A portable upright frontal view chest was obtained. Bilateral shoulder joint prostheses are partially seen. Heart size and pulmonary vasculature are normal. No infiltrate or pleural effusion. Calcified granuloma involves the left upper lung. No pneumothorax. Impression: No active disease. Electronically signed by: Jc Rey MD (02/23/2019 8:02 AM) [facility]
--- NOTE | 2019-02-23 08:55 | EKG ---
[facility] [address] [place] [address] Test Date: 2019-02-22 Test Time: 23:01:57 Pat Name: ELY CARDOZA Department: Room: Gender: F Pediatrician/Medical Doctor: : 1950 Requested By: ZEN CHRISTENSEN Order Number: [id number] Reading MD: Measurements Intervals [place] Rate: 99 P: -26 VT: 152 QRS: -27 QRSD: 86 T: 69 QT: 332 QTc: 426 Interpretive Statements SINUS RHYTHM LEFTWARD AXIS R-S TRANSITION ZONE IN V LEADS DISPLACED TO THE LEFT QRS(T) CONTOUR ABNORMALITY CONSIDER INFERIOR INFARCT POSSIBLY ABNORMAL ECG RI6.01 No previous ECG available for comparison
== END 2019-02-23 00:42 | disposition home or self-care (01) ==
LOC: ER 22:06
DX: J45.901 Unspecified asthma with (acute) exacerbation (principal); E11.9 Type 2 diabetes mellitus without complications; I10 Essential (primary) hypertension; J44.9 Chronic obstructive pulmonary disease, unspecified; G43.909 Migraine, unspecified, not intractable, without status migrainosus; Z86.718 Personal history of other venous thrombosis and embolism; Z88.0 Allergy status to penicillin; Z88.2 Allergy status to sulfonamides; Z88.5 Allergy status to narcotic agent; Z91.041 Radiographic dye allergy status; Z88.8 Allergy status to other drugs, medicaments and biological substances
CPT/HCPCS: 36415; 71045; 80053; 82962; 83880; 85025; 85610; 93005; 94640; 96374; 99285; J1200; J7512; J7620

== ENCOUNTER → 2019-03-10 | Outpatient (CLI) | payer BC, OTHER ==
[2019-02-23 00:36] VITALS: BP 191/78
[~2019-03-10] MED LIST changes: +HYDR-3135 PO; +INSU100I27 SQ; +INSU100I35 SQ; +PRED50TA PO; +WARF10TA40 PO
--- NOTE | 2019-03-10 17:32 | RAD ---
EXAM: AP, lateral and lumbosacral spot views with bilateral oblique views of the lumbar spine DATE: 03/10/2019 12:00 AM INDICATION: Low back pain COMPARISON: 06/24/2018 FINDINGS: The purposes of this report there are 5 nonrib-bearing lumbar-type vertebral bodies. Vertebral body heights are preserved. Mild T12-L1, L1-L2 moderate L3-4, L4-5 disc height loss. Endplate osteophytes are seen at multiple levels, most prominent at 4 5. At L4-5 there is endplate sclerosis, likely degenerative. On the oblique views, no definite pars defects are seen. Moderate facet degenerative changes at L3-4 and below. No spondylolisthesis. Straightening of the normal lumbar lordosis. Cholecystectomy clips are seen in the right upper quadrant. IMPRESSION: 1. Multilevel spondylosis as above 2. Negative acute fracture or subluxation. Electronically signed by: Subhash Del Valle MD (03/10/2019 5:29 PM) [facility]
== END | disposition home or self-care (01) ==
LOC: LAB 13:51
PROVIDERS: ATTEND Family Medicine
DX: M47.816 Spondylosis without myelopathy or radiculopathy, lumbar region (principal); M25.78 Osteophyte, vertebrae; M51.36 Other intervertebral disc degeneration, lumbar region; R29.890 Loss of height; Z90.49 Acquired absence of other specified parts of digestive tract
CPT/HCPCS: 72110

== ENCOUNTER → 2019-03-26 | Outpatient (CLI) | payer BC, OTHER ==
[2019-03-15 15:00] VITALS: BP 115/62
[~2019-03-26] MED LIST changes: +LIDO700A21 TP
--- NOTE | 2019-03-26 15:44 | KCIC ---
LUMBAR SPINE WO CONTRAST History: Back pain. Bilateral leg pain. Technique: Multiplanar, multi sequential MR imaging was performed of the lumbar spine. Comparison: None Findings: Normal vertebral body height and alignment. No fracture. L2 vertebral body hemangioma. No pathologic marrow replacing process. Multilevel degenerative endplate changes. Conus terminates at the normal location. No evidence of nerve root clumping. L1-L2: Small posterior disc bulge. Mild facet arthropathy. No canal or neuroforaminal narrowing. L2-L3: Small posterior disc bulge. Moderate facet arthropathy. No canal narrowing. No neuroforaminal narrowing. L3-L4: Broad-based posterior disc bulge. Moderate facet arthropathy. Facet joint effusions. Mild subarticular recess narrowing. No canal narrowing. Mild bilateral neural foraminal narrowing. L4-L5: Broad-based posterior disc bulge. Advanced facet arthropathy. Mild subarticular recess narrowing. No canal narrowing. Mild to moderate bilateral neural foraminal narrowing. L5-S1: Small posterior disc bulge. Advanced facet arthropathy. No canal narrowing. Mild bilateral neural foraminal narrowing. Impression: 1. Multilevel lumbar spondylosis with advanced lower lumbar facet arthropathy. 2. Mild subarticular recess narrowing L3-L4 and L4-L5. 3. Multilevel neural foraminal narrowing most prominent L4-L5. Electronically signed by: Keshav Villar DO (03/26/2019 3:41 PM) [facility]
== END | disposition home or self-care (01) ==
LOC: KCIC MRI 14:41
PROVIDERS: ATTEND Family Medicine
DX: M47.816 Spondylosis without myelopathy or radiculopathy, lumbar region (principal); M48.07 Spinal stenosis, lumbosacral region; M46.86 Other specified inflammatory spondylopathies, lumbar region; M53.86 Other specified dorsopathies, lumbar region
CPT/HCPCS: 72148

== ENCOUNTER 2019-03-27 23:36 | Emergency (ER) | payer BC, OTHER ==
[~2019-03-27] VITALS: Ht 165.1 cm; Wt 129.3 kg
[~2019-03-27 23:36] MED LIST changes: -LIDO700A21 TP
[2019-03-27 23:46] VITALS: BP 199/90
--- NOTE | 2019-03-27 23:59 | PHYS DOC ---
Past Medical History Past Medical History: Asthma, COPD, Diabetes-Type II, DVT, Hypertension, Migraines, Other Additional Past Medical Histor: asthma, PE, chronic back/abdominal pain (CHRISTI KEYS APRN) Past Surgical History: Appendectomy, Cholecystectomy, Hysterectomy, Other Additional Past Surgical Histo: bilateral cataract, bilater shoulder, hernia x7; colon; (CHRISTI KEYS APRN) Alcohol Use: None Drug Use: None (CHRISTI KEYS APRN) Adult General Chief Complaint Chief Complaint: BACK PAIN - NO INJURY HPI HPI Patient is a 68 year old female presents for chronic back pain. The patient states she had a MRI that showed that she had arthritis in her back. The patient states that the pain is excruciating and she is having difficulty dealing with it. The patient has been taking 10 mg hydrocodone's at home 8 hours. Rates her pain as 10 out of 10 in severity and sharp in her lower back. (CHRISTI KEYS APRN) Review of Systems Review of Systems Constitutional: Denies fever or chills [] Eyes: Denies change in visual acuity, redness, or eye pain [] HENT: Denies nasal congestion or sore throat [] Respiratory: Denies cough or shortness of breath [] Cardiovascular: No additional information not addressed in HPI [] GI: Denies abdominal pain, nausea, vomiting, bloody stools or diarrhea [] : Denies dysuria or hematuria [] Musculoskeletal: Reports lower back pain Integument: Denies rash or skin lesions [] Neurologic: Denies headache, focal weakness or sensory changes [] Endocrine: Denies polyuria or polydipsia [] Complete systems were reviewed and found to be within normal limits, except as documented in this note. (CHRISTI KEYS APRN) Current Medications Current Medications Current Medications Medications (Trade) Dose Ordered Sig/Irish Start Time Stop Time Status Last Admin Dose Admin Lidocaine (Lidoderm) 1 patch 1X ONCE 03/28/19 01:45 03/28/19 01:46 DC 03/28/19 01:51 1 PATCH Morphine Sulfate (Morphine Sulfate) 10 mg 1X ONCE 03/28/19 00:00 03/28/19 00:01 DC 03/28/19 00:25 10 MG Orphenadrine Citrate (Norflex) 60 mg 1X ONCE 03/28/19 01:45 03/28/19 01:46 DC 03/28/19 01:43 60 MG (CHRISTI VILLAGRAN DO) Allergies Allergies Allergies Coded Allergies Type Severity Reaction Last Updated Verified Penicillins Allergy Severe itching, dry mouth, tongue swells 01/24/18 Yes Sulfa (Sulfonamide Antibiotics) Allergy Intermediate ITCHING DRY MOUTH, hives/swelling 12/16/15 Yes fentanyl Allergy Intermediate 12/16/15 Yes hydromorphone HCl Allergy Intermediate MORPHINE OK 12/16/15 Yes methylprednisolone Allergy Intermediate RED MAN SYNDROME 10/11/16 Yes prednisone Allergy Intermediate RED MED SYNDROME 10/11/16 Yes gluten Allergy Mild bloating 04/18/17 Yes I S O L A T I O N *CONTACT* Allergy Unknown 02/04/17 Yes oxycodone HCl Adverse Reaction Intermediate "i FEEL LIKE I HAVE WORMS IN ME" 12/16/15 Yes (CHRISTI VILLAGRAN DO) Physical Exam Physical Exam Constitutional: Well developed, well nourished, no acute distress, non-toxic appearance. [] HENT: Normocephalic, atraumatic, bilateral external ears normal, oropharynx moist, no oral exudates, nose normal. [] Eyes: PERRLA, EOMI, conjunctiva normal, no discharge. [] Neck: Normal range of motion, no tenderness, supple, no stridor. [] Cardiovascular:Heart rate regular rhythm, no murmur [] Lungs & Thorax: Bilateral breath sounds clear to auscultation [] Abdomen: Bowel sounds normal, soft, no tenderness, no masses, no pulsatile m asses. [] Skin: Warm, dry, no erythema, no rash. [] Back: lower back tenderness. Extremities: No tenderness, no cyanosis, no clubbing, ROM intact, no edema. [] Neurologic: Alert and oriented X 3, normal motor function, normal sensory function, no focal deficits noted. [] Psychologic: Affect normal, judgement normal, mood normal. [] (CHRISTI KEYS APRN) Physical Exam Constitutional: Well developed, well nourished, obese, in no acute distress, non-toxic appearance HENT: Normocephalic, atraumatic, oropharynx moist Eyes: Conjunctiva normal, no discharge Neck: Normal range of motion, supple Lungs & Thorax: No respiratory distress Extremities: No tenderness, ROM intact Neurologic: Alert and oriented X 3, speech normal Psychologic: Affect anxious, judgement normall (CHRISTI VILLAGRAN DO) Current Patient Data Vital Signs Vital Signs Date Time Temp Pulse Resp B/P (MAP) Pulse Ox O2 Delivery O2 Flow Rate FiO2 03/28/19 00:25 18 98 Room Air 03/27/19 23:46 98.0 104 199/90 (126) 98.0 (CHRISTI VILLAGRAN DO) EKG EKG [] (CHRISTI KEYS APRN) Radiology/Procedures Radiology/Procedures [] (CHRISTI KEYS APRN) Course & Med Decision Making Course & Med Decision Making Pertinent Labs and Imaging studies reviewed. (See chart for details) Will give 10 mg of morphine IM. Patient states at first the pain medicine did not help, then she states it helps a little. The patient asks to be admitted to the hospital. Patient was admitted to the hospital 2 weeks ago for the same reason and MRI showed arthritis. Is on [place] 10 mg at home along with Flexeril. Discussed with patient that I will refer to Dr. Liao for pain management. Also discussed with patient that we can try Norflex and have stop her Flexeril. We can also try lidocaine patch. Patient is still adamant that she wants to be admitted to hospital. Discussed with Dr. Villagran, and he went and saw patient and discussed the same thing with patient. He discussed that a full workup has been performed. Will d/c her home to follow up with Dr. Liao and . (CHRISTI KEYS APRN) Dragon Disclaimer Dragon Disclaimer This electronic medical record was generated, in whole or in part, using a voice recognition dictation system. (CHRISTI KEYS APRN) Departure Departure Impression: Primary Impression: Chronic back pain Additional Impressions: Narcotic dependency, continuous Drug-seeking behavior Disposition: 01 HOME, SELF-CARE Condition: STABLE Referrals: Meagan CASTRO MD (PCP) MARIA LIAO MD Patient Instructions: Chronic Back Pain Additional Instructions: Thank you for visiting [facility]. We appreciate you trusting us with your care. If any additional problems come up don't hesitate to [facility]. Please follow up with your primary care provider so they can plan additional care if needed and know about the problem that you had. If symptoms worsen come back to the Emergency Department. Any concerning symptoms that start such as chest pain, shortness of air, weakness or numbness on one side of the body, running high fevers or any other concerning symptoms return to the ER. Please follow up with Dr. Castro, and Dr. Liao. Please stop taking the Flexeril and take Norflex. Scripts Orphenadrine Citrate (ORPHENADRINE CITRATE) 100 Mg Tablet.er 1 TAB PO BID, #20 TAB Prov: CHRISTI KEYS APRN 03/28/19 Lidocaine (Lidocaine PATCH ) 1 Each Adh..patch 1 EACH TP DAILY PRN for PAIN for 10 Days, #10 PATCH REMOVE AFTER 12 HOURS Prov: CHRISTI KEYS APRN 03/28/19 Attending Signature Attending Signature I have personally interviewed and examined the patient. All charts, labs, and imaging studies were reviewed. I agree with the PA/[employer]'s findings, exam, and plan. (CHRISTI VILLAGRAN DO) Problem Qualifiers Primary Impression: Chronic back pain Back pain location: low back pain Back pain laterality: bilateral Sciatica presence: unspecified whether sciatica present Qualified Codes: M54.5 - Low back pain; G89.29 - Other chronic pain CHRISTI KEYS APRN Mar 27, 2019 23:59 CHRISTI VILLAGRAN DO Mar 30, 2019 16:18
[2019-03-28] MEDS ORDERED: MORPHINE SULFATE 10 MG/ML VIAL. IM ONE
[2019-03-28] MEDS ORDERED: LIDO700A21 TP (01:23)
[2019-03-28] MEDS ORDERED: ORPH100T PO (01:23)
[2019-03-28] MEDS ORDERED: LIDOCAINE (700MG/PATCH) PATCH. TD ONE (01:45)
[2019-03-28] MEDS ORDERED: ORPHENADRINE CITRATE 60 MG/2 ML VIAL. IM ONE (01:45)
== END 2019-03-28 01:51 | disposition home or self-care (01) ==
LOC: ER 23:36
DX: G89.29 Other chronic pain (principal); M54.5 Low back pain; Z76.5 Malingerer [conscious simulation]; J44.9 Chronic obstructive pulmonary disease, unspecified; F11.20 Opioid dependence, uncomplicated; E11.9 Type 2 diabetes mellitus without complications; I10 Essential (primary) hypertension; G43.909 Migraine, unspecified, not intractable, without status migrainosus; E66.9 Obesity, unspecified; Z68.42 Body mass index [BMI] 45.0-49.9, adult; Z86.718 Personal history of other venous thrombosis and embolism; Z90.89 Acquired absence of other organs; Z90.49 Acquired absence of other specified parts of digestive tract; Z90.710 Acquired absence of both cervix and uterus; Z86.711 Personal history of pulmonary embolism; Z88.0 Allergy status to penicillin; Z88.2 Allergy status to sulfonamides; Z88.5 Allergy status to narcotic agent; Z91.041 Radiographic dye allergy status; Z88.8 Allergy status to other drugs, medicaments and biological substances
CPT/HCPCS: 96372; 99284; J2270; J2360

== ENCOUNTER 2019-03-31 22:08 | Emergency (ER) | payer BC, OTHER ==
[~2019-03-31] VITALS: Ht 165.1 cm; Wt 129.3 kg
[~2019-03-31 22:08] MED LIST changes: +LIDO700A21 TP
[2019-03-31] MEDS ORDERED: IPRATRPIUM/ALBUTEROL 0.5/2.5MG 3 ML NEBU. ONE (22:41)
[2019-03-31] MEDS ORDERED: IPRATRPIUM/ALBUTEROL 0.5/2.5MG 3 ML NEBU. NEB ONE (22:45)
--- NOTE | 2019-03-31 22:51 | PHYS DOC ---
Past Medical History Past Medical History: Asthma, COPD, Diabetes-Type II, DVT, Hypertension, Migraines, Other Additional Past Medical Histor: asthma, PE, chronic back/abdominal pain Past Surgical History: Appendectomy, Cholecystectomy, Hysterectomy, Other Additional Past Surgical Histo: bilateral cataract, bilater shoulder, hernia x7; colon; Alcohol Use: None Drug Use: None Adult General Chief Complaint Chief Complaint: ASTHMA HPI HPI Patient is a 68 year old female who presents with complaining of shortness of breath and cough. Patient complaining of nonproductive cough and intermittent episodes of shortness of breath that started today and did not get better with 3 times home nebulizer treatment. Patient states she feels chest tightness without fever and chills, focal neuro deficits, URI symptoms, sick contact. She has history of frequent emergency room visits and drug-seeking behavior. Review of Systems Review of Systems Constitutional: Denies fever or chills [] Eyes: Denies change in visual acuity, redness, or eye pain [] HENT: Denies nasal congestion or sore throat [] Respiratory: Reports cough and shortness of breath Cardiovascular: No additional information not addressed in HPI [] GI: Denies abdominal pain, nausea, vomiting, bloody stools or diarrhea [] : Denies dysuria or hematuria [] Musculoskeletal: Denies back pain or joint pain [] Integument: Denies rash or skin lesions [] Neurologic: Denies headache, focal weakness or sensory changes [] Endocrine: Denies polyuria or polydipsia [] All other systems were reviewed and found to be within normal limits, except as documented in this note. Current Medications Current Medications Current Medications Medications (Trade) Dose Ordered Sig/Irish Start Time Stop Time Status Last Admin Dose Admin Albuterol/ Ipratropium (Duoneb) 3 ml STK-MED ONCE 03/31/19 22:41 03/31/19 22:42 DC Alprazolam (Xanax) 1 mg 1X ONCE 03/31/19 23:45 03/31/19 23:46 DC 04/01/19 00:25 1 MG Clonidine HCl (Catapres) 0.2 mg 1X ONCE 03/31/19 23:00 03/31/19 23:01 DC 03/31/19 22:58 0.2 MG Allergies Allergies Allergies Coded Allergies Type Severity Reaction Last Updated Verified Penicillins Allergy Severe itching, dry mouth, tongue swells 01/24/18 Yes Sulfa (Sulfonamide Antibiotics) Allergy Intermediate ITCHING DRY MOUTH, hives/swelling 12/16/15 Yes fentanyl Allergy Intermediate 12/16/15 Yes hydromorphone HCl Allergy Intermediate MORPHINE OK 12/16/15 Yes methylprednisolone Allergy Intermediate RED MAN SYNDROME 10/11/16 Yes prednisone Allergy Intermediate RED MED SYNDROME 10/11/16 Yes gluten Allergy Mild bloating 04/18/17 Yes I S O L A T I O N *CONTACT* Allergy Unknown 02/04/17 Yes oxycodone HCl Adverse Reaction Intermediate "i FEEL LIKE I HAVE WORMS IN ME" 12/16/15 Yes Physical Exam Physical Exam Constitutional: Well developed, well nourished, mild distress, non-toxic appearance, morbidly obese. [] HENT: Normocephalic, atraumatic. Eyes: PERRLA, EOMI, conjunctiva normal, no discharge. [] Neck: Normal range of motion, no tenderness, supple, no stridor. [] Cardiovascular:Heart rate regular rhythm, no murmur [] Lungs & Thorax: Bilateral breath sounds clear to auscultation [] Abdomen: Bowel sounds normal, soft, no tenderness, no masses, no pulsatile masses. [] Skin: Warm, dry, no erythema, no rash. [] Back: No tenderness, no CVA tenderness. [] Extremities: No tenderness, no cyanosis, no clubbing, ROM intact, no edema. [] Neurologic: Alert and oriented X 3, no focal deficits noted. [] Psychologic: Affect anxious, judgement normal, mood normal. [] Current Patient Data Vital Signs Vital Signs Date Time Temp Pulse Resp B/P (MAP) Pulse Ox O2 Delivery O2 Flow Rate FiO2 04/01/19 00:35 99 198/82 (120) 95 Room Air 03/31/19 22:10 98.8 18 98.8 EKG EKG [] Radiology/Procedures Radiology/Procedures [] Course & Med Decision Making Course & Med Decision Making Evaluation of patient in ER showed 68-year-old female patient with history of frequent emergency room visits and drug-seeking behavior presented to ER with complaining of shortness of breath and asthma attack. Patient had stable vital signs with O2 sats of 100% on room air and unremarkable lungs sound. Patient had blood pressure of more than 200 to arrival to ER with anxiety that gradually improved. Patient was advised to take him home blood pressure medication and avoid of anxiety. I've spoken with the patient and/or caregivers. I've explained the patient's condition, diagnosis and treatment plan based on information available to me at this time. I've answered the patient's and/or caregivers questions and addressed any concerns. The patient and/or caregivers have a good understanding the patient's diagnosis, condition and treatment plan as can be expected at this point. Vital signs have been stabilized. The patient's condition is stable for discharge from the emergency department. The patient will pursue further outpatient evaluation with her primary care provider or other designated consulting physician as outlined in the discharge instructions. Patient and/or caregivers are agreeable to this plan of care and follow-up instructions have been explained in detail. The patient and/or caregivers have received these instructions in written format and expressed understanding of these discharge instructions. The patient and her caregivers are aware that if any significant change in condition or worsening of symptoms should prompt him to immediately return to this of the closest emergency department. If an emergent department is not readily available I would e ncourage him to call 911. City Voice Disclaimer City Voice Disclaimer This electronic medical record was generated, in whole or in part, using a voice recognition dictation system. Departure Departure Impression: Primary Impression: Asthma with exacerbation Additional Impressions: Panic attack Hypertensive urgency Disposition: HOME, SELF-CARE (at 00 25) Condition: IMPROVED Referrals: Meagan ALVAREZ MD (PCP) Patient Instructions: Anxiety and Panic Attacks, Asthma Attacks, Prevention, Asthma, Adult, Form - Blood Pressure Record Sheet, How to Take Your Blood Pressure, [id number], Managing Your High Blood Pressure Additional Instructions: Continue home medication Follow-up with your primary care physician in 3-5 days Return to ER if not getting better Problem Qualifiers Primary Impression: Asthma with exacerbation Asthma severity: mild Asthma persistence: unspecified Qualified Codes: J45.901 - Unspecified asthma with (acute) exacerbation FEI NAVA MD Mar 31, 2019 22:51
[2019-03-31] MEDS ORDERED: cloNIDine HCL 0.1 MG TABLET PO ONE (23:00)
[2019-03-31] MEDS ORDERED: ALPRAZolam 0.5 MG TABLET PO ONE (23:45)
[2019-04-01 00:35] VITALS: BP 198/82
== END 2019-04-01 00:45 | disposition home or self-care (01) ==
LOC: ER 22:08
DX: J45.901 Unspecified asthma with (acute) exacerbation (principal); F41.0 Panic disorder [episodic paroxysmal anxiety]; I16.0 Hypertensive urgency; J44.9 Chronic obstructive pulmonary disease, unspecified; E11.9 Type 2 diabetes mellitus without complications; I10 Essential (primary) hypertension; G43.909 Migraine, unspecified, not intractable, without status migrainosus; G89.29 Other chronic pain; Z86.718 Personal history of other venous thrombosis and embolism; Z88.0 Allergy status to penicillin; Z88.2 Allergy status to sulfonamides; Z88.4 Allergy status to anesthetic agent; Z88.5 Allergy status to narcotic agent; Z91.041 Radiographic dye allergy status; Z88.8 Allergy status to other drugs, medicaments and biological substances
CPT/HCPCS: 94640; 99283; J7620

== ENCOUNTER 2019-04-23 21:34 | Emergency (ER) | payer BC, OTHER ==
[~2019-04-23] VITALS: Ht 165.1 cm; Wt 128.8 kg
[~2019-04-23 21:34] MED LIST changes: -METF750T2 PO; +METF750T39 PO
[2019-04-23] MEDS ORDERED: HYDROcodone/APAP 5/325MG 1 TAB TABLET PO ONE (22:30)
[2019-04-23] MEDS ORDERED: ONDANSETRON ODT 4 MG TAB.RAPDIS. PO ONE (22:30)
--- NOTE | 2019-04-23 23:19 | RAD ---
Left tibia and fibula 2 views, left foot 3 views, left femur 2 views. HISTORY: Fall leg pain Left tibia and fibula AP and lateral views were taken of the left tibia and fibula. There is mild arthritis at the knee with chondrocalcinosis. There is no acute fracture in the left tibia or fibula. There is soft tissue swelling. There is vascular calcification. Left foot 3 views were taken of the left foot. There is not evidence of an acute fracture or acute osseous abnormality. There is soft tissue swelling. Left femur An AP view was taken of the proximal left femur, a lateral view was taken of the distal femur. Additional views would be necessary for complete evaluation. There is no definite fracture. There is no joint effusion at the knee. IMPRESSION: 1. Limited views of the left femur showing no definite fracture. 2. No fracture noted in the left foot. 3. Soft tissue swelling, no fracture noted in the left tibia or fibula. 4. Arthritis at the knee. Electronically signed by: Ralph De La Cruz MD (04/23/2019 11:17 PM) [facility]
--- NOTE | 2019-04-23 23:30 | RAD ---
Exam: CT lumbar spine and pelvis without contrast INDICATION: Fall, low back pain TECHNIQUE: Sequential axial images through the lumbar spine and pelvis obtained without IV contrast. Sagittal and coronal reformatted images were reconstructed from the axial data and reviewed. Comparisons: None FINDINGS: Lumbar spine: Vertebral body heights and alignment are well-maintained. Fracture to the lumbar spine is not identified. L1-L2: No significant neural foraminal or spinal canal stenosis. L2-L3: Mild bilateral facet arthropathy and a broad-based disc bulge without significant neural foraminal stenosis. L3-L4: Broad-based disc bulge, ligament flavum thickening and facet arthropathy causing mild spinal canal stenosis. There is at least mild bilateral neural foraminal stenosis. L4-L5: Severe degenerative disc disease with broad-based disc bulge, ligamenta flava thickening and facet arthropathy causing moderate spinal canal stenosis. There is severe right and moderate left-sided neural foraminal stenosis. L5-S1: Broad-based disc bulge and ligament flavum thickening without significant neural foraminal or spinal canal stenosis. Visualized paraspinal soft tissues are unremarkable. Pelvis: Visualized intrapelvic structures are unremarkable. Possible cortical discontinuity along the anterior surface of the sacrum at the S2-S3 level. Mild osteoarthritic change at the hip joints bilaterally. Sacroiliac joints and pubic symphysis are well-maintained. Visualized soft tissues are unremarkable. IMPRESSION: 1. Negative CT L-spine for acute traumatic injury. Spondylotic changes described above. 2. Evaluation of pelvis limited secondary to body habitus. Question cortical disruption along the anterior surface of the sacrum at the S2-S3 level. Recommend sacral radiographs for further evaluation. Exposure: One or more of the following in the visualized dose reduction techniques were utilized for this examination: 1. Automated exposure control 2. Adjustment of the MA and/or KV according to patient size 3. Use of iterative of reconstructive technique Electronically signed by: Dolores Funes MD (04/23/2019 11:27 PM) [facility] [place]
--- NOTE | 2019-04-23 23:42 | PHYS DOC ---
Past Medical History Past Medical History: Asthma, COPD, Diabetes-Type II, DVT, Hypertension, Migraines, Other Additional Past Medical Histor: asthma, PE, chronic back/abdominal pain (TRAM DURHAM APRN) Past Surgical History: Appendectomy, Cholecystectomy, Hysterectomy, Other Additional Past Surgical Histo: bilateral cataract, bilater shoulder, hernia x7; colon; (TRAM DURHAM APRN) Alcohol Use: None Drug Use: None (TRAM DURHAM APRN) Adult General Chief Complaint Chief Complaint: MECHANICAL FALL HPI HPI Patient is a 68 year old female who presents with states they are currently living and she somehow got her left foot and tripped and fell. Patient states her left foot is hurting due to the left great toe having been stopped and the toe nail itself is lifted up off the toenail bed but is still attached. Patient also complains of left leg pain and left hip pain. Patient denies hitting her head. Patient denies LOC or nausea or vomiting or dizziness. Patient rates her pain a 10 out of 10. (TRAM DURHAM APRN) Review of Systems Review of Systems Constitutional: Denies fever or chills [] Musculoskeletal: back pain, left leg or left hip oint pain [] Integument: Denies rash or skin lesions [] Neurologic: Denies headache, focal weakness or sensory changes [] All other systems were reviewed and found to be within normal limits, except as documented in this note. (TRAM DURHAM APRN) Current Medications Current Medications Current Medications Medications (Trade) Dose Ordered Sig/Irish Start Time Stop Time Status Last Admin Dose Admin Acetaminophen/ Hydrocodone Bitart (Lortab 5/325) 1 tab 1X ONCE 04/24/19 01:00 04/24/19 01:02 DC 04/24/19 01:07 1 TAB Ondansetron HCl (Zofran Odt) 4 mg 1X ONCE 04/23/19 22:30 04/23/19 22:31 DC 04/23/19 23:05 4 MG (CHRISTI VILLAGRAN DO) Allergies Allergies Allergies Coded Allergies Type Severity Reaction Last Updated Verified Penicillins Allergy Severe itching, dry mouth, tongue swells 01/24/18 Yes Sulfa (Sulfonamide Antibiotics) Allergy Intermediate ITCHING DRY MOUTH, hives/swelling 12/16/15 Yes fentanyl Allergy Intermediate 12/16/15 Yes hydromorphone HCl Allergy Intermediate MORPHINE OK 12/16/15 Yes methylprednisolone Allergy Intermediate RED MAN SYNDROME 10/11/16 Yes prednisone Allergy Intermediate RED MED SYNDROME 10/11/16 Yes gluten Allergy Mild bloating 04/18/17 Yes I S O L A T I O N *CONTACT* Allergy Unknown 02/04/17 Yes oxycodone HCl Adverse Reaction Intermediate "i FEEL LIKE I HAVE WORMS IN ME" 12/16/15 Yes (CHRISTI VILLAGRAN DO) Physical Exam Physical Exam Constitutional: Well developed, well nourished, no acute distress, non-toxic appearance. [] HENT: Normocephalic, atraumatic, bilateral external ears normal, oropharynx moist, no oral exudates, nose normal. [] Skin: Warm, dry, no erythema, no rash. [] Back: No tenderness, no CVA tenderness. [] Extremities: Left hip, left femur, left tib-fib, left great toe tenderness, left great toe with nail half ripped up off the nail bed but no damage to the nail bed itself. No cyanosis, no clubbing, ROM intact, no edema. [] Neurologic: Alert and oriented X 3, normal motor function, normal sensory function, no focal deficits noted. [] Psychologic: Affect normal, judgement normal, mood normal. [] (TRAM DURHAM APRN) Current Patient Data Vital Signs Vital Signs Date Time Temp Pulse Resp B/P (MAP) Pulse Ox O2 Delivery O2 Flow Rate FiO2 04/24/19 02:40 96 20 95 04/24/19 01:07 Room Air 04/23/19 21:35 98.9 200/118 (145) 98.9 (CHRISTI VILLAGRAN DO) EKG EKG [] (TRAM DURHAM APRN) Radiology/Procedures Radiology/Procedures [] (TRAM DURHAM APRN) Impressions: [facility] [address] [place] [address] IMAGING REPORT Signed PATIENT: ELY CARDOZA ACCOUNT: [id number] : 1950 LOCATION: ER AGE: 68 SEX: F EXAM STATUS: REG ER ORD. PHYSICIAN: TRAM DURHAM APRN REASON: FALL, LT FOOT PAIN PROCEDURE: FOOT LEFT 3V Left tibia and fibula 2 views, left foot 3 views, left femur 2 views. HISTORY: Fall leg pain Left tibia and fibula AP and lateral views were taken of the left tibia and fibula. There is mild arthritis at the knee with chondrocalcinosis. There is no acute fracture in the left tibia or fibula. There is soft tissue swelling. There is vascular calcification. Left foot 3 views were taken of the left foot. There is not evidence of an acute fracture or acute osseous abnormality. There is soft tissue swelling. Left femur An AP view was taken of the proximal left femur, a lateral view was taken of the distal femur. Additional views would be necessary for complete evaluation. There is no definite fracture. There is no joint effusion at the knee. IMPRESSION: 1. Limited views of the left femur showing no definite fracture. 2. No fracture noted in the left foot. 3. Soft tissue swelling, no fracture noted in the left tibia or fibula. 4. Arthritis at the knee. Electronically signed by: Ralph De La Cruz MD (04/23/2019 11:17 PM) [facility] DICTATED and SIGNED BY: RALPH DE LA CRUZ MD DATE: 04/23/19 2317 [facility] [address] [place], [place] [id number] IMAGING REPORT Signed PATIENT: ELY CARDOZA ACCOUNT: [id number] : 1950 LOCATION: ER AGE: 68 SEX: F EXAM STATUS: REG ER ORD. PHYSICIAN: TRAM DURHAM APRN REASON: FALL, LOW BACK PAIN PROCEDURE: CT LUMBAR SPINE WO CONTRAST Exam: CT lumbar spine and pelvis without contrast INDICATION: Fall, low back pain TECHNIQUE: Sequential axial images through the lumbar spine and pelvis obtained without IV contrast. Sagittal and coronal reformatted images were reconstructed from the axial data and reviewed. Comparisons: None FINDINGS: Lumbar spine: Vertebral body heights and alignment are well-maintained. Fracture to the lumbar spine is not identified. L1-L2: No significant neural foraminal or spinal canal stenosis. L2-L3: Mild bilateral facet arthropathy and a broad-based disc bulge without significant neural foraminal stenosis. L3-L4: Broad-based disc bulge, ligament flavum thickening and facet arthropathy causing mild spinal canal stenosis. There is at least mild bilateral neural foraminal stenosis. L4-L5: Severe degenerative disc disease with broad-based disc bulge, ligamenta flava thickening and facet arthropathy causing moderate spinal canal stenosis. There is severe right and moderate left-sided neural foraminal stenosis. L5-S1: Broad-based disc bulge and ligament flavum thickening without significant neural foraminal or spinal canal stenosis. Visualized paraspinal soft tissues are unremarkable. Pelvis: Visualized intrapelvic structures are unremarkable. Possible cortical discontinuity along the anterior surface of the sacrum at the S2-S3 level. Mild osteoarthritic change at the hip joints bilaterally. Sacroiliac joints and pubic symphysis are well-maintained. Visualized soft tissues are unremarkable. IMPRESSION: 1. Negative CT L-spine for acute traumatic injury. Spondylotic changes described above. 2. Evaluation of pelvis limited secondary to body habitus. Question cortical disruption along the anterior surface of the sacrum at the S2-S3 level. Recommend sacral radiographs for further evaluation. Exposure: One or more of the following in the visualized dose reduction techniques were utilized for this examination: 1. Automated exposure control 2. Adjustment of the MA and/or KV according to patient size 3. Use of iterative of reconstructive technique Electronically signed by: Dolores Ledbetter MD (04/23/2019 11:27 PM) [facility] DICTATED and SIGNED BY: DOLORES LEDBETTER MD DATE: 04/23/19 2327 [facility] [address] [facility] [place], [place] [id number] IMAGING REPORT Signed PATIENT: ELY CARDOZA ACCOUNT: [id number] : 1950 LOCATION: ER AGE: 68 SEX: F EXAM STATUS: REG ER ORD. PHYSICIAN: TRAM DURHAM APRN REASON: FALL, LT FOOT PAIN PROCEDURE: FOOT LEFT 3V Left tibia and fibula 2 views, left foot 3 views, left femur 2 views. HISTORY: Fall leg pain Left tibia and fibula AP and lateral views were taken of the left tibia and fibula. There is mild arthritis at the knee with chondrocalcinosis. There is no acute fracture in the left tibia or fibula. There is soft tissue swelling. There is vascular calcification. Left foot 3 views were taken of the left foot. There is not evidence of an acute fracture or acute osseous abnormality. There is soft tissue swelling. Left femur An AP view was taken of the proximal left femur, a lateral view was taken of the distal femur. Additional views would be necessary for complete evaluation. There is no definite fracture. There is no joint effusion at the knee. IMPRESSION: 1. Limited views of the left femur showing no definite fracture. 2. No fracture noted in the left foot. 3. Soft tissue swelling, no fracture noted in the left tibia or fibula. 4. Arthritis at the knee. Electronically signed by: Ralph De La Cruz MD (04/23/2019 11:17 PM) [facility] DICTATED and SIGNED BY: RALPH DE LA CRUZ MD DATE: 04/23/19 2317 [facility] Course & Med Decision Making Course & Med Decision Making Patient is a 68 year old female who presents with states they are currently living and she somehow got her left foot and tripped and fell. Patient states her left foot is hurting due to the left great toe having been stopped and the toe nail itself is lifted up off the toenail bed but is still attached. Patient also complains of left leg pain and left hip pain. Patient denies hitting her head. Patient denies LOC or nausea or vomiting or dizziness. Patient rates her pain a 10 out of 10. Alert and oriented. PERRLA. Denies dizziness, numbness or tingling, chest pain, shortness of air, syncope, hitting her head, headache, neck pain. Patient states when she was falling she twisted at her back and she is having mid to lower back pain. Patient states she has chronic low back pain. Just below mid back down through lumbar spine there is pain and some tenderness with palpation. There is no deformity or bruising seen to the patient's back. Patient's left great toe is not deformed or swollen or bruised but tender around to the toe where the nail has been mcfp ripped up off the nail bed. No laceration to nail bed or toe. No injury to nail bed. Toenail is still attached. From above ankle at tib-fib all the way up the left leg patient states there is tenderness with palpation. There is no deformity or bruising or abrasions seen. Patient also complains of tenderness at the lateral left hip. Patient can lift the leg and bend at the knee but there is pain. There is pain when the leg is moved in all directions at the hip joint. No swelling of the leg or the extremity. Pedal pulses present. Cap refill less than 3 seconds. Skin is pink warm and dry. Lungs are clear to auscultation all lobes. No joint laxity is noted. Patient rates her pain a 10 out of 10 and states she is aching. CT show 1. Negative CT L-spine for acute traumatic injury. Spondylotic changes described above. 2. Evaluation of pelvis limited secondary to body habitus. Question cortical disruption along the anterior surface of the sacrum at the S2-S3 level. Recommend sacral radiographs for further evaluation. X-rays show 1. Limited views of the left femur showing no definite fracture. 2. No fracture noted in the left foot. 3. Soft tissue swelling, no fracture noted in the left tibia or fibula. 4. Arthritis at the knee. Dr. Villagran read the sacral coccyx and states there are no obvious acute findings. I will put the patient on a antibiotic due to the injury to her toe and she has diabetic. Patient is discharged home patient to follow up with primary care doctor as soon as possible. (TRAM DURHAM APRN) Dragon Disclaimer Dragon Disclaimer This electronic medical record was generated, in whole or in part, using a voice recognition dictation system. (TRAM DURHAM APRN) Departure Departure Impression: Primary Impression: Toe injury Additional Impressions: Fall Leg pain Lumbar pain Disposition: HOME, SELF-CARE Condition: STABLE Referrals: Meagan ALVAREZ MD (PCP) Patient Instructions: Contusion, Fall Prevention and Home Safety, Fingernail or Toenail Loss Additional Instructions: Leave toenail intact until it fall off by itself. Take medication as prescribed. Follow-up with primary care doctor soon as possible. Watch toe for infection. Keep the toe covered. Scripts Hydrocodone/Apap 5-325 (NORCO 5-325 TABLET) 1 Each Tablet 1 TAB PO PRN Q6HRS PRN for PAIN, #10 TAB 0 Refills Prov: TRAM DURHAM APRN 04/24/19 Cephalexin (KEFLEX) 500 Mg Capsule 1 CAP PO TID, #21 CAP Prov: HERMINIOARTHURTRAMCLEO Vang APRN 04/24/19 Attending Signature Attending Signature I have reviewed the PA/HOURLY MANAGER's note and plan of care. I was available for consultation as needed during the patient's visit in the emergency department. I agree with the clinical impression, plan, and disposition. (CHRISTI VILLAGRAN DO) Problem Qualifiers Primary Impression: Toe injury Encounter type: initial encounter Laterality: left Qualified Codes: S99.922A - Unspecified injury of left foot, initial encounter Additional Impressions: Fall Encounter type: initial encounter Qualified Codes: W19.XXXA - Unspecified fall, initial encounter Leg pain Laterality: left Qualified Codes: M79.605 - Pain in left leg TRAM DURHAM APRN Apr 23, 2019 23:42 CHRISTI VILLAGRAN DO Apr 25, 2019 06:04
[2019-04-24] MEDS ORDERED: HYDROcodone/APAP 5/325MG 1 TAB TABLET PO ONE (01:00)
[2019-04-24] MEDS ORDERED: HYDR-3164 PO (02:26)
[2019-04-24] MEDS ORDERED: CEPH-264 PO (02:26)
[2019-04-24 02:40] VITALS: BP 146/70
--- NOTE | 2019-04-24 05:50 | RAD ---
Sacrum and coccyx. HISTORY: Abnormal on CT Images were obtained to the sacrum and coccyx. The patient's and portable technique size limits evaluation. There is mild degenerative change in the lower lumbar spine with disc space narrowing at L3-4 and L4-5. Sacrum appears intact. IMPRESSION: 1. Limited study showing no definite fracture, coccyx is in normal alignment. Electronically signed by: Ralph De La Cruz MD (04/24/2019 5:47 AM) [facility]
== END 2019-04-24 03:10 | disposition home or self-care (01) ==
LOC: ER 21:34
DX: S99.922A Unspecified injury of left foot, initial encounter (principal); M54.5 Low back pain; J44.9 Chronic obstructive pulmonary disease, unspecified; E11.9 Type 2 diabetes mellitus without complications; I10 Essential (primary) hypertension; G43.909 Migraine, unspecified, not intractable, without status migrainosus; G89.29 Other chronic pain; Z86.718 Personal history of other venous thrombosis and embolism; Z88.0 Allergy status to penicillin; Z88.2 Allergy status to sulfonamides; Z88.4 Allergy status to anesthetic agent; Z88.5 Allergy status to narcotic agent; Z91.041 Radiographic dye allergy status; Z88.8 Allergy status to other drugs, medicaments and biological substances; W01.0XXA Fall on same level from slipping, tripping and stumbling without subsequent striking against object, initial encounter; Y93.89 Activity, other specified; Y92.89 Other specified places as the place of occurrence of the external cause; Y99.8 Other external cause status
CPT/HCPCS: 72131; 72192; 72220; 73552; 73590; 73630; 99284; Q0162

== ENCOUNTER 2019-04-24 07:30 | Emergency (ER) | payer BC, OTHER ==
[~2019-04-24] VITALS: Ht 165.1 cm; Wt 128.8 kg
[~2019-04-24 07:30] MED LIST changes: +CEPH-264 PO
--- NOTE | 2019-04-24 07:53 | PHYS DOC ---
Past Medical History Past Medical History: Asthma, COPD, Diabetes-Type II, DVT, Hypertension, Migraines, Other Additional Past Medical Histor: asthma, PE, chronic back/abdominal pain Past Surgical History: Appendectomy, Cholecystectomy, Hysterectomy, Other Additional Past Surgical Histo: bilateral cataract, bilater shoulder, hernia x7; colon; Alcohol Use: None Drug Use: None Adult General Chief Complaint Chief Complaint: MECHANICAL FALL HPI HPI Patient is a 68 year old female with history of frequent emergency room visits who presents via EMS with complaining of current fall. Patient had a fall with injury to back and left lower extremity her left great toe and seen in this emergency room last night with extensive evaluation and was discharged home with prescription of hydrocodone. Patient states he she slipped today again to loss of consciousness or head injury and wanted to make sure she did not have injury to her left lower extremity. Patient denies new pain. Review of Systems Review of Systems Constitutional: Denies fever or chills [] Eyes: Denies change in visual acuity, redness, or eye pain [] HENT: Denies nasal congestion or sore throat [] Respiratory: Denies cough or shortness of breath [] Cardiovascular: No additional information not addressed in HPI [] GI: Denies abdominal pain, nausea, vomiting, bloody stools or diarrhea [] : Denies dysuria or hematuria [] Musculoskeletal: Denies back pain, reports joint pain [] Integument: Denies rash or skin lesions [] Neurologic: Denies headache, focal weakness or sensory changes [] Endocrine: Denies polyuria or polydipsia [] All other systems were reviewed and found to be within normal limits, except as documented in this note. Current Medications Current Medications Current Medications Medications (Trade) Dose Ordered Sig/Irish Start Time Stop Time Status Last Admin Dose Admin Clonidine HCl (Catapres) 0.1 mg 1X ONCE 04/24/19 08:00 04/24/19 08:01 DC 04/24/19 08:17 0.1 MG Allergies Allergies Allergies Coded Allergies Type Severity Reaction Last Updated Verified Penicillins Allergy Severe itching, dry mouth, tongue swells 01/24/18 Yes Sulfa (Sulfonamide Antibiotics) Allergy Intermediate ITCHING DRY MOUTH, hives/swelling 12/16/15 Yes fentanyl Allergy Intermediate 12/16/15 Yes hydromorphone HCl Allergy Intermediate MORPHINE OK 12/16/15 Yes methylprednisolone Allergy Intermediate RED MAN SYNDROME 10/11/16 Yes prednisone Allergy Intermediate RED MED SYNDROME 10/11/16 Yes gluten Allergy Mild bloating 04/18/17 Yes I S O L A T I O N *CONTACT* Allergy Unknown 02/04/17 Yes oxycodone HCl Adverse Reaction Intermediate "i FEEL LIKE I HAVE WORMS IN ME" 12/16/15 Yes Physical Exam Physical Exam Constitutional: Well developed, well nourished, mild distress, non-toxic appearance, morbidly obese. [] HENT: Normocephalic, atraumatic. Eyes: PERRLA, EOMI, conjunctiva normal, no discharge. [] Neck: Normal range of motion, no tenderness, supple, no stridor. [] Cardiovascular:Heart rate regular rhythm, no murmur [] Lungs & Thorax: Bilateral breath sounds clear to auscultation [] Skin: Warm, dry, no erythema, no rash. [] Back: No tenderness, no CVA tenderness. [] Extremities: Left great toe with partial avulsion of toenail , no tenderness, no cyanosis, no clubbing, ROM intact, no edema. [] Neurologic: Alert and oriented X 3, no focal deficits noted. [] Psychologic: Affect normal, judgement normal, mood normal. [] Current Patient Data Vital Signs Vital Signs Date Time Temp Pulse Resp B/P (MAP) Pulse Ox O2 Delivery O2 Flow Rate FiO2 04/24/19 08:40 90 18 95 04/24/19 08:17 190/79 04/24/19 07:43 98.2 Room Air 98.2 EKG EKG [] Radiology/Procedures Radiology/Procedures [] Course & Med Decision Making Course & Med Decision Making Evaluation of patient in ER showed 58-year-old female patient with recurrent fall with complete evaluation last night because of another fall. Patient had unremarkable physical exam except for elevation of blood pressure because of not taking her blood pressure medication today. Patient had clonidine in ER with improvement of blood pressure. Patient was advised to continue her home medication. I've spoken with the patient and/or caregivers. I've explained the patient's condition, diagnosis and treatment plan based on information available to me at this time. I've answered the patient's and/or caregivers questions and addressed any concerns. The patient and/or caregivers have a good understanding the patient's diagnosis, condition and treatment plan as can be expected at this point. Vital signs have been stabilized. The patient's condition is stable for discharge from the emergency department. The patient will pursue further outpatient evaluation with her primary care provider or other designated consulting physician as outlined in the discharge instructions. Patient and/or caregivers are agreeable to this plan of care and follow-up instructions have been explained in detail. The patient and/or caregivers have received these instructions in written format and expressed understanding of these discharge instructions. The patient and her caregivers are aware that if any significant change in condition or worsening of symptoms should prompt him to immediately return to this of the closest emergency department. If an emergent department is not readily available I would encourage him to call 911. Dragon Disclaimer Dragon Disclaimer This electronic medical record was generated, in whole or in part, using a voice recognition dictation system. Departure Departure Impression: Primary Impression: Frequent falls Additional Impressions: Hypertensive emergency Injury of toenail of left foot Morbid obesity with BMI of 45.0-49.9, adult Disposition: 01 HOME, SELF-CARE (at 0 [phone]) Condition: IMPROVED Referrals: Meagan ALVAREZ MD (PCP) ASHLEIGH KIM DPM Patient Instructions: Fall Prevention and Home Safety, Toe Avulsion Additional Instructions: Continue current medication Follow-up with your primary care physician in 3-5 days Return to ER if not getting better Follow-up with footwear stitcher (podiatric ) in 2 or 3 days Problem Qualifiers Additional Impressions: Injury of toenail of left foot Encounter type: sequela Qualified Codes: S99.922S - Unspecified injury of left foot, sequela FEI NAVA MD Apr 24, 2019 07:53
[2019-04-24] MEDS ORDERED: cloNIDine HCL 0.1 MG TABLET PO ONE (08:00)
[2019-04-24 08:40] VITALS: BP 194/63
== END 2019-04-24 08:50 | disposition home or self-care (01) ==
LOC: ER 07:30
DX: S99.922A Unspecified injury of left foot, initial encounter (principal); I10 Essential (primary) hypertension; J44.9 Chronic obstructive pulmonary disease, unspecified; E11.9 Type 2 diabetes mellitus without complications; G89.29 Other chronic pain; G43.909 Migraine, unspecified, not intractable, without status migrainosus; Z86.718 Personal history of other venous thrombosis and embolism; Z86.711 Personal history of pulmonary embolism; E66.01 Morbid (severe) obesity due to excess calories; Z68.42 Body mass index [BMI] 45.0-49.9, adult; Z88.0 Allergy status to penicillin; Z88.2 Allergy status to sulfonamides; Z88.4 Allergy status to anesthetic agent; Z88.5 Allergy status to narcotic agent; Z91.041 Radiographic dye allergy status; Z88.8 Allergy status to other drugs, medicaments and biological substances; W18.39XA Other fall on same level, initial encounter; Y93.89 Activity, other specified; Y92.89 Other specified places as the place of occurrence of the external cause; Y99.8 Other external cause status
CPT/HCPCS: 99284

== ENCOUNTER 2019-07-07 22:55 | Emergency (ER) | payer BC, OTHER ==
[~2019-07-07] VITALS: Ht 165.1 cm; Wt 131.1 kg
[2019-07-07 23:30] VITALS: BP 206/79
[2019-07-08] MEDS ORDERED: ORPHENADRINE CITRATE 60 MG/2 ML VIAL. IM ONE (00:45)
[2019-07-08] MEDS ORDERED: MORPHINE SULFATE 10 MG/ML VIAL. IV ONE (00:45)
[2019-07-08] MEDS ORDERED: CYCL10TA2 PO (00:53)
--- NOTE | 2019-07-08 00:55 | PHYS DOC ---
Past Medical History Past Medical History: Asthma, CAD, COPD, Diabetes-Type II, DVT, GERD, Hyp ertension, Migraines, UTI, Other Additional Past Medical Histor: low back strain,hyperglycemia,resp failur e,chronic left knee pain,ileus, (GIANNA VIDES APRN) Past Surgical History: Appendectomy, Cholecystectomy, Hysterectomy, Other Additional Past Surgical Histo: bilateral shoulders,hernia repair x's 7,bilateral cataracts,colon resection (GIANNA VIDES APRN) Alcohol Use: None Drug Use: None (GIANNA VIDES APRN) Attending Signature I have participated in the care of this patient and I have reviewed and agree with all pertinent clinical information above including history, exam, and recommendations. (EDELMIRA BUTTERFIELD MD) Adult General Chief Complaint Chief Complaint: BACK PAIN OR INJURY HPI HPI Patient is a 69 year old female, accompanied by her daughter, who presents to the ER with complaints of lower back pain. Patient states that she has had pain ever since she fell in early April of this year. Patient states tonight the pain became worse and was so severe that she felt like her legs were going weak. Patient denies any saddle anesthesia, or loss of bowel or bladder control. She currently rates her pain a 10 out of 10 on the pain scale, she denies any alleviating or exacerbating factors and states the pain is chronic. Patient denies any numbness or tingling of her lower extremities. (GIANNA VIDES APRN) Review of Systems Review of Systems Constitutional: Denies fever or chills [] Respiratory: Denies cough or shortness of breath [] Cardiovascular: No additional information not addressed in HPI [] GI: Denies abdominal pain, nausea, vomiting, or diarrhea [] : Denies dysuria or hematuria [] Musculoskeletal: See history of present illness Integument: Denies rash or skin lesions [] Neurologic: Denies headache, focal weakness or sensory changes [] Endocrine: Denies polyuria or polydipsia [] Complete systems were reviewed and found to be within normal limits, except as documented in this note. (GIANNA VIDES APRN) Current Medications Current Medications Current Medications Medications (Trade) Dose Ordered Sig/Irish Start Time Stop Time Status Last Admin Dose Admin Morphine Sulfate (Morphine Sulfate) 5 mg 1X ONCE 07/08/19 01:00 07/08/19 01:01 DC 07/08/19 01:02 5 MG Orphenadrine Citrate (Norflex) 60 mg 1X ONCE 07/08/19 00:45 07/08/19 00:46 DC 07/08/19 01:02 60 MG (EDELMIRA BUTTERFIELD MD) Allergies Allergies Allergies Coded Allergies Type Severity Reaction Last Updated Verified Penicillins Allergy Severe itching, dry mouth, tongue swells 01/24/18 Yes Sulfa (Sulfonamide Antibiotics) Allergy Intermediate ITCHING DRY MOUTH, hives/swelling 12/16/15 Yes fentanyl Allergy Intermediate 12/16/15 Yes hydromorphone HCl Allergy Intermediate MORPHINE OK 12/16/15 Yes methylprednisolone Allergy Intermediate RED MAN SYNDROME 10/11/16 Yes prednisone Allergy Intermediate RED MED SYNDROME 10/11/16 Yes gluten Allergy Mild bloating 04/18/17 Yes I S O L A T I O N *CONTACT* Allergy Unknown 02/04/17 Yes oxycodone HCl Adverse Reaction Intermediate "i FEEL LIKE I HAVE WORMS IN ME" 12/16/15 Yes (EDELMIRA BUTTERFIELD MD) Physical Exam Physical Exam Constitutional: Well developed, well nourished, no acute distress, non-toxic appearance, obese. [] HENT: Normocephalic, atraumatic, bilateral external ears normal, nose normal. [] Eyes: PERRLA, EOMI, conjunctiva normal, no discharge. [] Neck: Normal range of motion, no stridor. [] Cardiovascular:Heart rate regular rhythm Lungs & Thorax: Bilateral breath sounds clear to auscultation [] Skin: Warm, dry, no erythema, no rash. [] Back: No bony tenderness, bilateral lumbar paraspinal TTP Extremities: No cyanosis, ROM intact Neurologic: Alert and oriented X 3, no focal deficits noted. [] Psychologic: Affect normal, judgement normal, mood normal. [] (GIANNA VIDES APRN) Current Patient Data Vital Signs Vital Signs Date Time Temp Pulse Resp B/P (MAP) Pulse Ox O2 Delivery O2 Flow Rate FiO2 07/08/19 01:40 17 99 Room Air 07/07/19 23:30 98.5 102 206/79 (121) 98.5 (EDELMIRA BUTTERFIELD MD) EKG EKG [] (GIANNA VIDES APRN) Radiology/Procedures Radiology/Procedures [] (GIANNA VIDES APRN) Course & Med Decision Making Course & Med Decision Making Pertinent Labs and Imaging studies reviewed. (See chart for details) dx: Chronic low back pain exacerbation Patient was given 5 mg of IM morphine, and 60 mg of IM Norflex in the emergency department. A prescription was written for Flexeril 10 mg by mouth 3 times a day when necessary pain. I discussed chronic back pain with the patient and advised that she follow-up with her primary care doctor for referral to pain management and possibly some physical therapy. She was also instructed to take her blood pressure medication as prescribed. Pt's daughter and pt verbalized an understanding of home care, medications, follow-up, and return to ED instructions and were in agreement with the plan of care. [] (GIANNA VIDES APRN) Dragon Disclaimer Dragon Disclaimer This electronic medical record was generated, in whole or in part, using a voice recognition dictation system. (GIANNA VIDES APRN) Departure Departure Impression: Primary Impression: Chronic back pain Additional Impression: Drug-seeking behavior Disposition: HOME, SELF-CARE Condition: STABLE Referrals: Meagan ALVAREZ MD (PCP) Patient Instructions: Back Pain, Adult, [id number] Additional Instructions: Fill the prescriptions and use as directed. Activity as tolerated. Follow-up with your primary care doctor in the next 1-2 days. Return to the emergency room if your symptoms worsen. Scripts Cyclobenzaprine Hcl (CYCLOBENZAPRINE HCL) 10 Mg Tablet 1 TAB PO TID PRN for PAIN for 10 Days, #30 TAB 0 Refills Prov: GIANNA VIDES APRN 07/08/19 Problem Qualifiers Primary Impression: Chronic back pain Back pain location: low back pain Back pain laterality: bilateral Sciatica presence: without sciatica Qualified Codes: M54.5 - Low back pain; G89.29 - Other chronic pain GIANNA VIDES APRN Jul 08, 2019 00:55 EDELMIRA BUTTERFIELD MD Jul 08, 2019 03:59
[2019-07-08] MEDS ORDERED: MORPHINE SULFATE 10 MG/ML VIAL. IM ONE (01:00)
== END 2019-07-08 01:48 | disposition home or self-care (01) ==
LOC: ER 22:55
DX: G89.29 Other chronic pain (principal); M54.5 Low back pain; Z76.5 Malingerer [conscious simulation]; J44.9 Chronic obstructive pulmonary disease, unspecified; E11.65 Type 2 diabetes mellitus with hyperglycemia; K21.9 Gastro-esophageal reflux disease without esophagitis; I10 Essential (primary) hypertension; G43.909 Migraine, unspecified, not intractable, without status migrainosus; I25.10 Atherosclerotic heart disease of native coronary artery without angina pectoris; Z86.718 Personal history of other venous thrombosis and embolism; Z87.440 Personal history of urinary (tract) infections; Z90.89 Acquired absence of other organs; Z90.710 Acquired absence of both cervix and uterus; Z90.49 Acquired absence of other specified parts of digestive tract; Z88.0 Allergy status to penicillin; Z88.2 Allergy status to sulfonamides; Z88.4 Allergy status to anesthetic agent; Z88.5 Allergy status to narcotic agent; Z91.041 Radiographic dye allergy status; Z88.8 Allergy status to other drugs, medicaments and biological substances
CPT/HCPCS: 96372; 99284; J2270; J2360

== ENCOUNTER 2019-07-22 21:02 | Emergency (ER) | payer BC, OTHER ==
[~2019-07-22] VITALS: Ht 165.1 cm; Wt 131.1 kg
--- NOTE | 2019-07-22 21:24 | PHYS DOC ---
Past Medical History Past Medical History: Asthma, CAD, COPD, Diabetes-Type II, DVT, GERD, Hypertension, Migraines, UTI, Other Additional Past Medical Histor: low back strain,hyperglycemia,resp failure,chronic left knee pain,ileus, Past Surgical History: Appendectomy, Cholecystectomy, Hysterectomy, Other Additional Past Surgical Histo: bilateral shoulders,hernia repair x's 7,bilateral cataracts,colon resection Alcohol Use: None Drug Use: None Adult General Chief Complaint Chief Complaint: SHORTNESS OF BREATH HPI HPI 69-year-old female with underlying history of hypertension, diabetes, asthma, COPD presents to the emergency Department complaints of shortness of breath. Patient states she was driving home with daughter developed shortness of breath at that time. She's had nonproductive cough. She denies any chest pain on exam however has had some nausea. Patient is obese. Nothing makes her symptoms worse, nothing makes her symptoms better. Patient denies fever. Review of Systems Review of Systems Constitutional: Denies fever or chills [] HENT: Denies nasal congestion or sore throat [] Respiratory: + cough/SOB Cardiovascular: No additional information not addressed in HPI [] GI: Denies abdominal pain, + nausea, no vomiting, bloody stools or diarrhea [] Musculoskeletal: Denies back pain or joint pain [] Neurologic: Denies headache, focal weakness or sensory changes [] All other systems were reviewed and found to be within normal limits, except as documented in this note. Current Medications Current Medications Current Medications Medications (Trade) Dose Ordered Sig/Irish Start Time Stop Time Status Last Admin Dose Admin Albuterol/ Ipratropium (Duoneb) 3 ml 1X ONCE 07/22/19 21:30 07/22/19 21:31 DC 07/22/19 21:26 3 ML Insulin Human Lispro (HumaLOG) 10 units 1X ONCE 07/22/19 23:00 07/22/19 23:01 DC 07/22/19 22:58 10 UNITS Ketorolac Tromethamine (Toradol 30mg Vial) 30 mg 1X ONCE 07/22/19 21:30 07/22/19 21:31 DC 07/22/19 22:22 30 MG Sodium Chloride 1,000 ml @ 1,000 mls/hr 1X ONCE 07/22/19 22:30 07/22/19 23:29 07/22/19 22:24 1,000 MLS/HR Allergies Allergies Allergies Coded Allergies Type Severity Reaction Last Updated Verified Penicillins Allergy Severe itching, dry mouth, tongue swells 01/24/18 Yes Sulfa (Sulfonamide Antibiotics) Allergy Intermediate ITCHING DRY MOUTH, hives/swelling 12/16/15 Yes fentanyl Allergy Intermediate 12/16/15 Yes hydromorphone HCl Allergy Intermediate MORPHINE OK 12/16/15 Yes methylprednisolone Allergy Intermediate RED MAN SYNDROME 10/11/16 Yes prednisone Allergy Intermediate RED MED SYNDROME 10/11/16 Yes gluten Allergy Mild bloating 04/18/17 Yes I S O L A T I O N *CONTACT* Allergy Unknown 02/04/17 Yes oxycodone HCl Adverse Reaction Intermediate "i FEEL LIKE I HAVE WORMS IN ME" 12/16/15 Yes Physical Exam Physical Exam Constitutional: Well developed, well nourished, no acute distress, non-toxic appearance. [] HENT: Normocephalic, atraumatic, bilateral external ears normal, oropharynx moist, no oral exudates, nose normal. [] Eyes: PERRLA, EOMI, conjunctiva normal, no discharge. [] Cardiovascular:Heart rate regular rhythm, no murmur [] Lungs & Thorax: Bilateral breath sounds clear to auscultation [] Abdomen: Bowel sounds normal, soft, no tenderness, no masses, no pulsatile masses. [] Skin: Warm, dry, no erythema, no rash. [] Back: No tenderness, no CVA tenderness. [] Extremities: No tenderness, no edema. [] Neurologic: Alert and oriented X 3, no focal deficits noted. [] Psychologic: Affect normal, judgement normal, mood normal. [] Current Patient Data Vital Signs Vital Signs Date Time Temp Pulse Resp B/P (MAP) Pulse Ox O2 Delivery O2 Flow Rate FiO2 07/22/19 21:27 94 Room Air 07/22/19 21:05 98.8 116 24 218/119 (152) 98.8 Lab Values Laboratory Tests Test 07/22/19 21:40 07/22/19 22:40 White Blood Count 8.9 x10^3/uL (4.0-11.0) Red Blood Count 4.69 x10^6/uL (3.50-5.40) Hemoglobin 12.9 g/dL (12.0-15.5) Hematocrit 39.2 % (36.0-47.0) Mean Corpuscular Volume 84 fL (79-100) Mean Corpuscular Hemoglobin 28 pg (25-35) Mean Corpuscular Hemoglobin Concent 33 g/dL (31-37) Red Cell Distribution Width 15.4 % (11.5-14.5) H Platelet Count 271 x10^3/uL (140-400) Neutrophils (%) (Auto) 44 % (31-73) Lymphocytes (%) (Auto) 48 % (24-48) Monocytes (%) (Auto) 5 % (0-9) Eosinophils (%) (Auto) 2 % (0-3) Basophils (%) (Auto) 1 % (0-3) Neutrophils # (Auto) 3.9 x10^3/uL (1.8-7.7) Lymphocytes # (Auto) 4.3 x10^3/uL (1.0-4.8) Monocytes # (Auto) 0.4 x10^3/uL (0.0-1.1) Eosinophils # (Auto) 0.2 x10^3/uL (0.0-0.7) Basophils # (Auto) 0.1 x10^3/uL (0.0-0.2) Sodium Level 132 mmol/L (136-145) L Potassium Level 3.8 mmol/L (3.5-5.1) Chloride Level 95 mmol/L (98-107) L Carbon Dioxide Level 25 mmol/L (21-32) Anion Gap 12 (6-14) Blood Urea Nitrogen 13 mg/dL (7-20) Creatinine 1.3 mg/dL (0.6-1.0) H Estimated GFR (Cockcroft-Gault) 40.7 BUN/Creatinine Ratio 10 (6-20) Glucose Level 523 mg/dL (70-99) *H Calcium Level 8.5 mg/dL (8.5-10.1) Total Bilirubin 0.2 mg/dL (0.2-1.0) Aspartate Amino Transferase (AST) 29 U/L (15-37) Alanine Aminotransferase (ALT) 19 U/L (14-59) Alkaline Phosphatase 159 U/L (46-116) H Troponin I Quantitative < 0.017 ng/mL (0.000-0.055) WY-Wat-T-Type Natriuretic Peptide 116 pg/mL (0-124) Total Protein 6.2 g/dL (6.4-8.2) L Albumin 2.9 g/dL (3.4-5.0) L Albumin/Globulin Ratio 0.9 (1.0-1.7) L D-Dimer (Elaina) 0.50 ug/mlFEU (0.00-0.50) Laboratory Tests 07/22/19 21:40 Laboratory Tests 07/22/19 21:40 EKG EKG [] Radiology/Procedures Radiology/Procedures [] Course & Med Decision Making Course & Med Decision Making Pertinent Labs and Imaging studies reviewed. (See chart for details) []69-year-old female with underlying history of hypertension, diabetes, asthma, COPD presents to the emergency Department complaints of shortness of breath. Patient states she was driving home with daughter developed shortness of breath at that time. She's had nonproductive cough. She denies any chest pain on exam however has had some nausea. Patient is obese. Nothing makes her symptoms worse, nothing makes her symptoms better. Patient denies fever. Labs reviewed, d-dimer 0.50, within normal limits for patient's age. Blood gluco se elevated 523. Patient given IV fluids, insulin subcutaneous 10 units. We'll recheck blood sugar prior to discharge. Chest x-ray reveals no evidence of acute cardiopulmonary process Patient overall states she feels better, will plan for discharge home again will repeat blood sugar prior to discharge. Discussed with patient/family at bedside Dragon Disclaimer Dragon Disclaimer This electronic medical record was generated, in whole or in part, using a voice recognition dictation system. Departure Departure Impression: Primary Impression: Dyspnea Additional Impression: Uncontrolled blood glucose Disposition: 01 HOME, SELF-CARE Condition: IMPROVED Referrals: Meagan ALVAREZ MD (PCP) Patient Instructions: Hyperglycemia, [id number], Shortness of Breath, [id number] Additional Instructions: Recommend follow up with PCP 3 - 5 days Return to the ER with worsening symptoms, intractable pain, fever, altered mental status Tylenol/Motrin as needed for pain Labs/Imaging reviewed without acute process - ddimer within normal limits for age, no concern for clot Problem Qualifiers Primary Impression: Dyspnea Dyspnea type: shortness of breath Qualified Codes: R06.02 - Shortness of breath EDELMIRA BUTTERFIELD MD Jul 22, 2019 21:24
[2019-07-22] MEDS ORDERED: KETOROLAC 30 MG/ML VIAL. IVP ONE (21:30)
[2019-07-22] MEDS ORDERED: IPRATRPIUM/ALBUTEROL 0.5/2.5MG 3 ML NEBU. NEB ONE (21:30)
[2019-07-22 21:57] LABS: BASO # 0.1 x10^3/uL (0.0-0.2); BASO % 1 % (0-3); EOS # 0.2 x10^3/uL (0.0-0.7); EOS % 2 % (0-3); HEMATOCRIT 39.2 % (36.0-47.0); HEMOGLOBIN 12.9 g/dL (12.0-15.5); LYMPH # 4.3 x10^3/uL (1.0-4.8); LYMPH % 48 % (24-48); MEAN CORPUSCULAR HEMOGLOBIN 28 pg (25-35); MEAN CORPUSCULAR HGB CONC 33 g/dL (31-37); MEAN CORPUSCULAR VOLUME 84 fL (79-100); MONO # 0.4 x10^3/uL (0.0-1.1); MONO % 5 % (0-9); NEUT # 3.9 x10^3/uL (1.8-7.7); NEUT % 44 % (31-73); PLATELET COUNT 271 x10^3/uL (140-400); RED BLOOD COUNT 4.69 x10^6/uL (3.50-5.40); RED CELL DISTRIBUTION WIDTH 15.4 % (11.5-14.5); WHITE BLOOD COUNT 8.9 x10^3/uL (4.0-11.0)
[2019-07-22 22:13] LABS: ALBUMIN 2.9 g/dL (3.4-5.0); ALBUMIN/GLOBULIN RATIO 0.9 (1.0-1.7); CALCIUM 8.5 mg/dL (8.5-10.1); CREATININE 1.3 mg/dL (0.6-1.0); GFR 40.7; POTASSIUM 3.8 mmol/L (3.5-5.1); TOTAL BILIRUBIN 0.2 mg/dL (0.2-1.0); TOTAL PROTEIN 6.2 g/dL (6.4-8.2)
[2019-07-22] MEDS ORDERED: INSULIN LISPRO 300 UNITS/3 ML VIAL. SQ SCH (22:30)
[2019-07-22] MEDS ORDERED: IV NORMAL SALINE 1000ML BAG 1,000 ML IV ONE (22:30)
[2019-07-22] MEDS ORDERED: INSULIN LISPRO 300 UNITS/3 ML VIAL. SQ ONE (23:00)
[2019-07-22 23:12] VITALS: BP 194/81
--- NOTE | 2019-07-22 23:44 | RAD ---
Exam: Chest one view INDICATION: Shortness of breath TECHNIQUE: Frontal view of the chest Comparisons: 02/22/2019 FINDINGS: The cardiomediastinal silhouette and pulmonary vessels are within normal limits. The lung and pleural spaces are clear. Bilateral shoulder arthroplasties are noted. IMPRESSION: No acute cardiopulmonary process. Electronically signed by: Dolores Funes MD (07/22/2019 11:41 PM) [facility]
--- NOTE | 2019-07-23 06:52 | EKG ---
[facility] [address] [place] [address] Test Date: 2019-07-22 Test Time: 21:17:39 Pat Name: ELY CARDOZA Department: Room: Gender: F Paste Thinner: : 1950 Requested By: EDELMIRA BUTTERFIELD Order Number: [id number] Reading MD: Measurements Intervals [place] Rate: 101 P: -52 AL: 140 QRS: -37 QRSD: 88 T: 104 QT: 330 QTc: 429 Interpretive Statements SUPRAVENTRICULAR RHYTHM ABNORMAL LEFT AXIS DEVIATION R-S TRANSITION ZONE IN V LEADS DISPLACED TO THE LEFT QRS(T) CONTOUR ABNORMALITY CONSIDER ANTEROSEPTAL MYOCARDIAL DAMAGE CONSIDER INFERIOR INFARCT T ABNORMALITY IN HIGH LATERAL LEADS ABNORMAL ECG RI6.01 No previous ECG available for comparison
== END 2019-07-22 23:45 | disposition home or self-care (01) ==
LOC: ER 21:02
DX: R06.02 Shortness of breath (principal); E11.65 Type 2 diabetes mellitus with hyperglycemia; J44.9 Chronic obstructive pulmonary disease, unspecified; K21.9 Gastro-esophageal reflux disease without esophagitis; I10 Essential (primary) hypertension; G43.909 Migraine, unspecified, not intractable, without status migrainosus; I25.10 Atherosclerotic heart disease of native coronary artery without angina pectoris; Z86.718 Personal history of other venous thrombosis and embolism; G89.29 Other chronic pain; Z88.0 Allergy status to penicillin; Z88.2 Allergy status to sulfonamides; Z88.4 Allergy status to anesthetic agent; Z88.5 Allergy status to narcotic agent; Z88.8 Allergy status to other drugs, medicaments and biological substances
CPT/HCPCS: 36415; 71045; 80053; 83880; 84484; 85025; 85379; 93005; 94640; 96361; 96372; 96374; 99285; J1815; J1885; J7030; J7620

== ENCOUNTER 2019-08-26 16:48 | Emergency (ER) | payer BC, OTHER ==
[~2019-08-26] VITALS: Ht 172.7 cm; Wt 131.1 kg
[~2019-08-26 16:48] MED LIST changes: +MECL-75 PO; -MECL25TA3 PO
--- NOTE | 2019-08-26 17:20 | PHYS DOC ---
Past Medical History Past Medical History: Asthma, CAD, COPD, Diabetes-Type II, DVT, GERD, Hypertension, Migraines, UTI, Other Additional Past Medical Histor: low back strain,hyperglycemia,resp failure,chronic left knee pain,ileus, (FEI NAVA MD) Past Surgical History: Appendectomy, Cholecystectomy, Hysterectomy, Other Additional Past Surgical Histo: bilateral shoulders,hernia repair x's 7,bilateral cataracts,colon resection (FEI NAVA MD) Alcohol Use: None Drug Use: None (FEI NAVA MD) Adult General Chief Complaint Chief Complaint: CHEST PAIN HPI HPI Patient is a 69 year old is area of hypertension, dyslipidemia, diabetes mellitus, coronary artery disease, COPD, chronic low back pain, PE on Coumadin who presents with complaint of right-sided chest pain. Patient complaining of intermittent episodes of right-sided chest pain this morning as a sharp pain with radiation to her back and rated her pain 9/10. Patient complaining of shortness of breath without fever, palpitation, nausea and vomiting, focal neuro deficit. Patient states she has had nonproductive cough for the last 2 days. Patient states she had history of pulmonary embolism and concent to have another PE. (FEI NAVA MD) Review of Systems Review of Systems Constitutional: Denies fever or chills [] Eyes: Denies change in visual acuity, redness, or eye pain [] HENT: Denies nasal congestion or sore throat [] Respiratory: Reports cough and shortness of breath Cardiovascular: No additional information not addressed in HPI [] GI: Denies abdominal pain, nausea, vomiting, bloody stools or diarrhea [] : Denies dysuria or hematuria [] Musculoskeletal: Denies back pain or joint pain [] Integument: Denies rash or skin lesions [] Neurologic: Denies headache, focal weakness or sensory changes [] Endocrine: Denies polyuria or polydipsia [] All other systems were reviewed and found to be within normal limits, except as documented in this note. (FEI NAVA MD) Current Medications Current Medications Current Medications Medications (Trade) Dose Ordered Sig/Irish Start Time Stop Time Status Last Admin Dose Admin Acetaminophen/ Hydrocodone Bitart (Lortab 5/325) 1 tab 1X ONCE 08/26/19 18:00 08/26/19 18:03 DC 08/26/19 18:20 1 TAB Insulin Human Regular (HumuLIN R VIAL) 10 unit 1X ONCE 08/26/19 18:00 08/26/19 18:03 DC 08/26/19 18:21 10 UNIT (CHRISTI VILLAGRAN DO) Allergies Allergies Allergies Coded Allergies Type Severity Reaction Last Updated Verified Penicillins Allergy Severe itching, dry mouth, tongue swells 01/24/18 Yes Sulfa (Sulfonamide Antibiotics) Allergy Intermediate ITCHING DRY MOUTH, hives/swelling 12/16/15 Yes fentanyl Allergy Intermediate 12/16/15 Yes hydromorphone HCl Allergy Intermediate MORPHINE OK 12/16/15 Yes methylprednisolone Allergy Intermediate RED MAN SYNDROME 10/11/16 Yes prednisone Allergy Intermediate RED MED SYNDROME 10/11/16 Yes gluten Allergy Mild bloating 04/18/17 Yes I S O L A T I O N *CONTACT* Allergy Unknown 02/04/17 Yes oxycodone HCl Adverse Reaction Intermediate "i FEEL LIKE I HAVE WORMS IN ME" 12/16/15 Yes (CHRISTI VILLAGRAN DO) Physical Exam Physical Exam Constitutional: Well nourished, mild distress, non-toxic appearance, morbidly obese. [] HENT: Normocephalic, atraumati. Eyes: PERRLA, EOMI, conjunctiva normal, no discharge. [] Neck: Normal range of motion, no tenderness, supple, no stridor. [] Cardiovascular:Heart rate regular rhythm, no murmur [] Lungs & Thorax: Bilateral breath sounds clear to auscultation, right-sided reproducible chest pain [] Abdomen: Bowel sounds normal, soft, no tenderness, no masses, no pulsatile masses. [] Skin: Warm, dry, no erythema, no rash. [] Back: No tenderness, no CVA tenderness. [] Extremities: No tenderness, no cyanosis, no clubbing, ROM intact, no edema. [] Neurologic: Alert and oriented X 3, normal motor function, normal sensory function, no focal deficits noted. [] Psychologic: Affect normal, judgement normal, mood normal. [] (FEI NAVA MD) Physical Exam Constitutional: Well developed, well nourished, no acute distress, non-toxic appearance, obese HENT: Normocephalic, atraumatic, oropharynx moist Eyes: Conjunctiva normal, no discharge Neck: Normal range of motion, no tenderness, supple Cardiovascular: Heart rate normal, regular rhythm Lungs & Thorax: No respiratory distress, clear to auscultation Abdomen: Soft, no tenderness Skin: Warm, dry, no erythema, no rash Neurologic: Alert and oriented X 3, no focal deficits noted Psychologic: Affect normal, judgement normal (VILLAGRAN,CHRISTI R DO) Current Patient Data Vital Signs Vital Signs Date Time Temp Pulse Resp B/P (MAP) Pulse Ox O2 Delivery O2 Flow Rate FiO2 08/26/19 18:21 72 162/91 (114) 95 Room Air 08/26/19 16:50 97.9 22 97.9 (VILLAGRAN,CHRISTI R DO) Lab Values Laboratory Tests Test 08/26/19 17:10 White Blood Count 8.4 x10^3/uL (4.0-11.0) Red Blood Count 5.11 x10^6/uL (3.50-5.40) Hemoglobin 14.2 g/dL (12.0-15.5) Hematocrit 42.4 % (36.0-47.0) Mean Corpuscular Volume 83 fL (79-100) Mean Corpuscular Hemoglobin 28 pg (25-35) Mean Corpuscular Hemoglobin Concent 34 g/dL (31-37) Red Cell Distribution Width 15.2 % (11.5-14.5) H Platelet Count 308 x10^3/uL (140-400) Neutrophils (%) (Auto) 47 % (31-73) Lymphocytes (%) (Auto) 43 % (24-48) Monocytes (%) (Auto) 6 % (0-9) Eosinophils (%) (Auto) 2 % (0-3) Basophils (%) (Auto) 1 % (0-3) Neutrophils # (Auto) 4.0 x10^3/uL (1.8-7.7) Lymphocytes # (Auto) 3.7 x10^3/uL (1.0-4.8) Monocytes # (Auto) 0.5 x10^3/uL (0.0-1.1) Eosinophils # (Auto) 0.2 x10^3/uL (0.0-0.7) Basophils # (Auto) 0.1 x10^3/uL (0.0-0.2) Prothrombin Time 12.6 SEC (11.7-14.0) Prothrombin Time INR 1.0 (0.8-1.1) D-Dimer (Elaina) 0.32 ug/mlFEU (0.00-0.50) Sodium Level 131 mmol/L (136-145) L Potassium Level 4.3 mmol/L (3.5-5.1) Chloride Level 93 mmol/L (98-107) L Carbon Dioxide Level 31 mmol/L (21-32) Anion Gap 7 (6-14) Blood Urea Nitrogen 16 mg/dL (7-20) Creatinine 0.9 mg/dL (0.6-1.0) Estimated GFR (Cockcroft-Gault) 62.3 BUN/Creatinine Ratio 18 (6-20) Glucose Level 394 mg/dL (70-99) H Calcium Level 9.0 mg/dL (8.5-10.1) Magnesium Level 1.6 mg/dL (1.8-2.4) L Total Bilirubin 0.2 mg/dL (0.2-1.0) Aspartate Amino Transferase (AST) 21 U/L (15-37) Alanine Aminotransferase (ALT) 17 U/L (14-59) Alkaline Phosphatase 141 U/L (46-116) H Creatine Kinase 54 U/L (26-192) Troponin I Quantitative < 0.017 ng/mL (0.000-0.055) PL-Uod-F-Type Natriuretic Peptide 148 pg/mL (0-124) H Total Protein 6.9 g/dL (6.4-8.2) Albumin 3.0 g/dL (3.4-5.0) L Albumin/Globulin Ratio 0.8 (1.0-1.7) L Lipase 347 U/L (73-393) Laboratory Tests 08/26/19 17:10 Laboratory Tests 08/26/19 17:10 (CHRISTI VILLAGRAN DO) Lab Values Laboratory Tests Test 08/26/19 17:10 White Blood Count 8.4 x10^3/uL (4.0-11.0) Red Blood Count 5.11 x10^6/uL (3.50-5.40) Hemoglobin 14.2 g/dL (12.0-15.5) Hematocrit 42.4 % (36.0-47.0) Mean Corpuscular Volume 83 fL (79-100) Mean Corpuscular Hemoglobin 28 pg (25-35) Mean Corpuscular Hemoglobin Concent 34 g/dL (31-37) Red Cell Distribution Width 15.2 % (11.5-14.5) H Platelet Count 308 x10^3/uL (140-400) Neutrophils (%) (Auto) 47 % (31-73) Lymphocytes (%) (Auto) 43 % (24-48) Monocytes (%) (Auto) 6 % (0-9) Eosinophils (%) (Auto) 2 % (0-3) Basophils (%) (Auto) 1 % (0-3) Neutrophils # (Auto) 4.0 x10^3/uL (1.8-7.7) Lymphocytes # (Auto) 3.7 x10^3/uL (1.0-4.8) Monocytes # (Auto) 0.5 x10^3/uL (0.0-1.1) Eosinophils # (Auto) 0.2 x10^3/uL (0.0-0.7) Basophils # (Auto) 0.1 x10^3/uL (0.0-0.2) Prothrombin Time 12.6 SEC (11.7-14.0) Prothrombin Time INR 1.0 (0.8-1.1) D-Dimer (Elaina) 0.32 ug/mlFEU (0.00-0.50) Sodium Level 131 mmol/L (136-145) L Potassium Level 4.3 mmol/L (3.5-5.1) Chloride Level 93 mmol/L (98-107) L Carbon Dioxide Level 31 mmol/L (21-32) Anion Gap 7 (6-14) Blood Urea Nitrogen 16 mg/dL (7-20) Creatinine 0.9 mg/dL (0.6-1.0) Estimated GFR (Cockcroft-Gault) 62.3 BUN/Creatinine Ratio 18 (6-20) Glucose Level 394 mg/dL (70-99) H Calcium Level 9.0 mg/dL (8.5-10.1) Magnesium Level 1.6 mg/dL (1.8-2.4) L Total Bilirubin 0.2 mg/dL (0.2-1.0) Aspartate Amino Transferase (AST) 21 U/L (15-37) Alanine Aminotransferase (ALT) 17 U/L (14-59) Alkaline Phosphatase 141 U/L (46-116) H Creatine Kinase 54 U/L (26-192) Troponin I Quantitative < 0.017 ng/mL (0.000-0.055) FM-Cny-B-Type Natriuretic Peptide 148 pg/mL (0-124) H Total Protein 6.9 g/dL (6.4-8.2) Albumin 3.0 g/dL (3.4-5.0) L Albumin/Globulin Ratio 0.8 (1.0-1.7) L Lipase 347 U/L (73-393) Laboratory Tests 08/26/19 17:10 Laboratory Tests 08/26/19 17:10 (FEI NAVA MD) EKG EKG EKG interpreted by me. EKG at [id number] sinus at rate of 75, abnormal left axis deviation, poor R-wave progress in anteroseptal leads, no acute ST and T- wave elevation. (FEI NAVA MD) Radiology/Procedures Radiology/Procedures [facility] [address] [place] [address] IMAGING REPORT Signed PATIENT: ELY CARDOZA ACCOUNT: [id number] : 1950 LOCATION: ER AGE: 69 SEX: F EXAM STATUS: PRE ER ORD. PHYSICIAN: FEI NAVA MD REASON: right-sided chest pain, history of PE PROCEDURE: PORTABLE CHEST 1V AP chest. HISTORY: Right-sided chest pain, history of PE AP view was taken of the chest. There is a shoulder prosthesis on each side. There is a calcified granuloma on the left. There is no effusion. Lungs are free of infiltrates. Heart is normal in size. IMPRESSION: 1. No acute infiltrates. Electronically signed by: Ralph De La Cruz MD (08/26/2019 5:27 PM) [facility] DICTATED and SIGNED BY: RALPH DE LA CRUZ MD DATE: 08/26/19 172 (FEI NAVA MD) Course & Med Decision Making Course & Med Decision Making Pertinent Labs and Imaging studies reviewed. (See chart for details) Evaluation of patient in ER showed 69-year-old female patient with complaining of right-sided chest pain and concern for PE. Patient had negative d-dimer. Patient had blood sugar of 394 and insulin was ordered and bleeding for decrease of blood sugar before discharging patient home. Sign out given to at 1800 for further evaluation and final disposition. Discussed current findings and plan with patient and family, who acknowledge understanding and agreement. (FEI NAVA MD) Course & Med Decision Making 1800- Sign out received from Dr. Nava for patient with report of right sided chest pain. Reviewed labs and radiology. Troponin and D-dimer WNL. Hyperglyc emia addressed by . EKG stable. Chest x-ray stable. Patient seen and evaluated by myself. Patient reports she normally takes 18 units of novolog at this time. Requests to go home and will continue to take her medications as prescribed. It was also noted that patient with subtheraputic INR. Advised to double her dose of coumadin today and tomorrow and follow closely with PCP for recheck of her INR. Patient stable for discharge with outpatient follow-up with PCP. Discussed findings and plan with patient and family, who acknowledge understanding and agreement. (CHRISTI VILLAGRAN DO) Dragon Disclaimer Dragon Disclaimer This electronic medical record was generated, in whole or in part, using a voice recognition dictation system. (FEI NAVA MD) Departure Departure Impression: Primary Impression: Right-sided chest wall pain Additional Impressions: Hyperglycemia Uncontrolled blood glucose Subtherapeutic international normalized ratio (INR) Disposition: 01 HOME, SELF-CARE Condition: STABLE Referrals: Meagan ALVAREZ MD (PCP) Patient Instructions: Chest Pain (Nonspecific), [id number], Hyperglycemia, [id number], Prothrombin Time, International Normalized Ratio, Warfarin, [id number] Additional Instructions: Please double your coumadin dose tonight and tomorrow. Please take your insulin as directed by your doctor and follow back up closely for re-evaluation. The HEART Score for CP Pts HEART Score for Chest Pain: HEART Score for Chest Pain Response (Comments) Value History Slighlty/Non-Suspicious 0 ECG Normal 0 Age > 65 2 Risk Factors >3 Risk Factors or Hx CAD 2 Troponin < Normal Limit 0 Total 4 Risk Factors: Risk Factors: DM, Current or recent (<one month) smoker, HTN, HLP, family history of CAD, obesity. Risk Scores: Score 0 - 3: 2.5% MACE over next 6 weeks - Discharge Home Score 4 - 6: 20.3% MACE over next 6 weeks - Admit for Clinical Observation Score 7 - 10: 72.7% MACE over next 6 weeks - Early Invasive Strategies (CHRISTI VILLAGRAN DO) Problem Qualifiers FEI NAVA MD Aug 26, 2019 17:20 CHRISTI VILLAGRAN DO Aug 26, 2019 18:38
[2019-08-26 17:25] LABS: BASO # 0.1 x10^3/uL (0.0-0.2); BASO % 1 % (0-3); EOS # 0.2 x10^3/uL (0.0-0.7); EOS % 2 % (0-3); HEMATOCRIT 42.4 % (36.0-47.0); HEMOGLOBIN 14.2 g/dL (12.0-15.5); LYMPH # 3.7 x10^3/uL (1.0-4.8); LYMPH % 43 % (24-48); MEAN CORPUSCULAR HEMOGLOBIN 28 pg (25-35); MEAN CORPUSCULAR HGB CONC 34 g/dL (31-37); MEAN CORPUSCULAR VOLUME 83 fL (79-100); MONO # 0.5 x10^3/uL (0.0-1.1); MONO % 6 % (0-9); NEUT % 47 % (31-73); PLATELET COUNT 308 x10^3/uL (140-400); RED BLOOD COUNT 5.11 x10^6/uL (3.50-5.40); RED CELL DISTRIBUTION WIDTH 15.2 % (11.5-14.5); WHITE BLOOD COUNT 8.4 x10^3/uL (4.0-11.0)
--- NOTE | 2019-08-26 17:30 | RAD ---
AP chest. HISTORY: Right-sided chest pain, history of PE AP view was taken of the chest. There is a shoulder prosthesis on each side. There is a calcified granuloma on the left. There is no effusion. Lungs are free of infiltrates. Heart is normal in size. IMPRESSION: 1. No acute infiltrates. Electronically signed by: Ralph De La Cruz MD (08/26/2019 5:27 PM) [facility]
[2019-08-26 17:36] LABS: CREATININE 0.9 mg/dL (0.6-1.0); GFR 62.3; POTASSIUM 4.3 mmol/L (3.5-5.1); PROTHROMBIN TIME PATIENT 12.6 SEC (11.7-14.0)
[2019-08-26 17:40] LABS: D-DIMER 0.32 ug/mlFEU (0.00-0.50)
[2019-08-26 17:41] LABS: ALBUMIN/GLOBULIN RATIO 0.8 (1.0-1.7); MAGNESIUM 1.6 mg/dL (1.8-2.4); TOTAL BILIRUBIN 0.2 mg/dL (0.2-1.0); TOTAL PROTEIN 6.9 g/dL (6.4-8.2)
[2019-08-26] MEDS ORDERED: INSULIN REGULAR 100 UNIT/ML 3ML VIAL. SQ ONE (18:00)
[2019-08-26] MEDS ORDERED: HYDROcodone/APAP 5/325MG 1 TAB TABLET PO ONE (18:00)
[2019-08-26 18:21] VITALS: BP 162/91
--- NOTE | 2019-08-27 06:55 | EKG ---
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
== END 2019-08-26 18:50 | disposition home or self-care (01) ==
LOC: ER 16:48
DX: R07.89 Other chest pain (principal); E11.65 Type 2 diabetes mellitus with hyperglycemia; R79.1 Abnormal coagulation profile; J44.9 Chronic obstructive pulmonary disease, unspecified; I25.10 Atherosclerotic heart disease of native coronary artery without angina pectoris; I82.509 Chronic embolism and thrombosis of unspecified deep veins of unspecified lower extremity; K21.9 Gastro-esophageal reflux disease without esophagitis; I10 Essential (primary) hypertension; G43.909 Migraine, unspecified, not intractable, without status migrainosus; G89.29 Other chronic pain; Z90.49 Acquired absence of other specified parts of digestive tract; Z90.89 Acquired absence of other organs; Z98.890 Other specified postprocedural states; Z90.710 Acquired absence of both cervix and uterus; Z79.4 Long term (current) use of insulin; Z88.0 Allergy status to penicillin; Z88.2 Allergy status to sulfonamides; Z88.6 Allergy status to analgesic agent; Z88.5 Allergy status to narcotic agent; Z88.1 Allergy status to other antibiotic agents
CPT/HCPCS: 36415; 71045; 80053; 82550; 83690; 83735; 83880; 84484; 85025; 85379; 85610; 93005; 96372; 99285; J1815

== ENCOUNTER → 2019-10-15 | Emergency (ER) | payer BC, OTHER ==
[~2019-10-15] VITALS: Ht 165.1 cm; Wt 129.0 kg
[~2019-10-15] MED LIST changes: +ASPI-612 PO; +HYDROcodone/APAP 7.5/325MG 1 TAB TABLET PO ONE; +LIDOCAINE 1% Multi-Dose 20 ML VIAL. INJ ONE
--- NOTE | 2019-10-15 06:38 | PHYS DOC ---
Past Medical History Past Medical History: Asthma, CAD, COPD, Diabetes-Type II, DVT, GERD, Hyp ertension, Migraines, UTI, Other Additional Past Medical Histor: low back strain,hyperglycemia,resp failur e,chronic left knee pain,ileus, Past Surgical History: Appendectomy, Cholecystectomy, Hysterectomy, Other Additional Past Surgical Histo: bilateral shoulders,hernia repair x's 7,bilateral cataracts,colon resection Smoking Status: Never Smoker Alcohol Use: None Drug Use: None Adult General Chief Complaint Chief Complaint: TRAUMA ALERT HPI HPI Patient is a 69 year old female who presents via EMS with report of fall at home. Patient states that she was up and walking in her feet got tangled up each other and she fell backward, striking her head on furniture. She denies having had loss of consciousness. She does complain of headache. She denies any neck pain or back pain. Patient rates headache at a 10 out of 10. She denies any nausea or vomiting. Patient was just discharged from hospital yesterday.[] Review of Systems Review of Systems Constitutional: Denies fever or chills [] Eyes: Denies change in visual acuity, redness, or eye pain [] Respiratory: Denies cough or shortness of breath [] Cardiovascular: No additional information not addressed in HPI [] GI: Denies abdominal pain, nausea, vomiting, bloody stools or diarrhea [] Musculoskeletal: Denies back pain or joint pain [] Integument: Denies rash or skin lesions [] Neurologic: [place] of headache without focal weakness or sensory changes [] All other systems were reviewed and found to be within normal limits, except as documented in this note. Current Medications Current Medications Current Medications Medications (Trade) Dose Ordered Sig/Irish Start Time Stop Time Status Last Admin Dose Admin Acetaminophen/ Hydrocodone Bitart (Lortab 7.5/325) 1 tab 1X ONCE 10/15/19 06:30 10/15/19 06:31 DC 10/15/19 06:32 1 TAB Lidocaine HCl (Lidocaine 1% 20ml Vial) 20 ml 1X ONCE 10/15/19 07:45 10/15/19 07:46 10/15/19 07:39 20 ML Allergies Allergies Allergies Coded Allergies Type Severity Reaction Last Updated Verified Penicillins Allergy Severe itching, dry mouth, tongue swells 01/24/18 Yes Sulfa (Sulfonamide Antibiotics) Allergy Intermediate ITCHING DRY MOUTH, hives/swelling 12/16/15 Yes fentanyl Allergy Intermediate 12/16/15 Yes hydromorphone HCl Allergy Intermediate MORPHINE OK 12/16/15 Yes methylprednisolone Allergy Intermediate RED MAN SYNDROME 10/11/16 Yes prednisone Allergy Intermediate RED MED SYNDROME 10/11/16 Yes gluten Allergy Mild bloating 04/18/17 Yes I S O L A T I O N *CONTACT* Allergy Unknown 02/04/17 Yes oxycodone HCl Adverse Reaction Intermediate "i FEEL LIKE I HAVE WORMS IN ME" 12/16/15 Yes Physical Exam Physical Exam Constitutional: Well developed, well nourished, no acute distress, non-toxic appearance. [] HENT: Normocephalic, with 2 cm laceration to the right occipital region of scalp extending into subcutaneous tissue. Laceration is linear with fairly sharp margins. [] Eyes: PERRLA, EOMI, conjunctiva normal, no discharge. [] Neck: Normal range of motion, no tenderness, supple, no stridor. [] Cardiovascular: Regular rate and rhythm[] Lungs & Thorax: Bilateral breath sounds clear to auscultation [] Abdomen: Bowel sounds normal, soft, no tenderness. [] Skin: Warm, dry, no erythema, no rash. [] Extremities: No tenderness, no cyanosis, no clubbing, ROM intact. [] Neurologic: Alert and oriented X 3, no focal deficits noted. [] Current Patient Data Vital Signs Vital Signs Date Time Temp Pulse Resp B/P (MAP) Pulse Ox O2 Delivery O2 Flow Rate FiO2 10/15/19 07:32 18 94 Room Air 10/15/19 06:17 81 177/76 (109) 10/15/19 05:36 98.1 98.1 EKG EKG [] Radiology/Procedures Radiology/Procedures [] Impressions: PROCEDURE: CT HEAD WO CONTRAST CT head without contrast dated 10/15/2019. Comparison made to 07/06/2018. CLINICAL INDICATION: Pain after fall. TECHNIQUE: Contiguous axial imaging of the head was performed from skull base to vertex. No contrast administered. One or more of the following individualized dose reduction techniques were utilized for this examination: 1. Automated exposure control 2. Adjustment of the mA and/or kV according to patient size 3. Use of iterative reconstruction technique. FINDINGS: Ventricles and sulci are mildly prominent for age. No midline shift or mass effect. Mild patchy low density in the deep/subcortical periventricular white matter. No hemorrhage or extra-axial collection. Posterior fossa and brainstem unremarkable. Mild mucosal thickening of the ethmoid air cells. The visualized paranasal sinuses and mastoid air cells are otherwise clear. No apparent calvarial abnormality. IMPRESSION: 1. No evidence of acute intracranial hemorrhage or mass. 2. Mild chronic small vessel ischemic changes and atrophy. Electronically signed by: Maik Ferrera MD (10/15/2019 6:46 AM) [id number] Course & Med Decision Making Course & Med Decision Making Pertinent Labs and Imaging studies reviewed. (See chart for details) Laceration Repair by me: Anesthesia: 1% lidocaine locally Location: Right occipital scalp Tendon/Joint/Nerves: No injury Foreign body: None detected after copious irrigation and exploration Technique: A total of 2 wendy were placed with good reapproximation of wound margins Complexity: No subcutaneous sutures/mucosal repair/edge excision Post Closure Length: 2 cm Patient's bleeding was easily controlled in the department and there is no indication of anemia. No evidence of compartment syndrome, neurologic injury, vascular injury, open joint, tendon laceration, or foreign body. Patient is appropriate for outpatient follow up. 48 hour wound check. Scar minimization instructions given. Dragon Disclaimer Dragon Disclaimer This electronic medical record was generated, in whole or in part, using a voice recognition dictation system. Departure Departure Impression: Primary Impression: Closed head injury Additional Impression: Occipital scalp laceration Disposition: 01 HOME, SELF-CARE Condition: STABLE Referrals: Meagan ALVAREZ MD (PCP) Patient Instructions: Head Injury, Adult, Laceration Care, Adult Additional Instructions: Return to ER or follow-up with primary physician for staple removal in 7-10 days. Problem Qualifiers Primary Impression: Closed head injury Encounter type: initial encounter Qualified Codes: S09.90XA - Unspecified injury of head, initial encounter Additional Impression: Occipital scalp laceration Encounter type: initial encounter Qualified Codes: S01.01XA - Laceration without foreign body of scalp, initial encounter BRIELLE SUGGS Jr. DO Oct 15, 2019 06:38
--- NOTE | 2019-10-15 06:49 | RAD ---
CT head without contrast dated 10/15/2019. Comparison made to 07/06/2018. CLINICAL INDICATION: Pain after fall. TECHNIQUE: Contiguous axial imaging of the head was performed from skull base to vertex. No contrast administered. One or more of the following individualized dose reduction techniques were utilized for this examination: 1. Automated exposure control 2. Adjustment of the mA and/or kV according to patient size 3. Use of iterative reconstruction technique. FINDINGS: Ventricles and sulci are mildly prominent for age. No midline shift or mass effect. Mild patchy low density in the deep/subcortical periventricular white matter. No hemorrhage or extra-axial collection. Posterior fossa and brainstem unremarkable. Mild mucosal thickening of the ethmoid air cells. The visualized paranasal sinuses and mastoid air cells are otherwise clear. No apparent calvarial abnormality. IMPRESSION: 1. No evidence of acute intracranial hemorrhage or mass. 2. Mild chronic small vessel ischemic changes and atrophy. Electronically signed by: Maik Ferrera MD (10/15/2019 6:46 AM) [id number]
[2019-10-15 07:32] VITALS: BP 134/64
== END ==
LOC: ER 05:36
DX: S01.01XA Laceration without foreign body of scalp, initial encounter (principal); J44.9 Chronic obstructive pulmonary disease, unspecified; I11.9 Hypertensive heart disease without heart failure; E11.649 Type 2 diabetes mellitus with hypoglycemia without coma; G43.909 Migraine, unspecified, not intractable, without status migrainosus; G89.29 Other chronic pain; Z90.49 Acquired absence of other specified parts of digestive tract; Z90.89 Acquired absence of other organs; Z98.890 Other specified postprocedural states; Z86.718 Personal history of other venous thrombosis and embolism; Z90.710 Acquired absence of both cervix and uterus; Z88.1 Allergy status to other antibiotic agents; Z88.2 Allergy status to sulfonamides; Z88.5 Allergy status to narcotic agent; Z88.6 Allergy status to analgesic agent; Z88.8 Allergy status to other drugs, medicaments and biological substances; W01.190A Fall on same level from slipping, tripping and stumbling with subsequent striking against furniture, initial encounter; Y93.89 Activity, other specified; Y92.89 Other specified places as the place of occurrence of the external cause; Y99.8 Other external cause status
CPT/HCPCS: 12001; 70450; 99285; J3490

== ENCOUNTER 2019-10-23 21:33 | Emergency (ER) | payer BC, OTHER ==
[~2019-10-23] VITALS: Ht 165.1 cm; Wt 130.0 kg
[~2019-10-23 21:33] MED LIST changes: -HYDROcodone/APAP 7.5/325MG 1 TAB TABLET PO ONE; -LIDOCAINE 1% Multi-Dose 20 ML VIAL. INJ ONE
[2019-10-23 22:20] VITALS: BP 151/65
--- NOTE | 2019-10-23 22:36 | PHYS DOC ---
Past Medical History Past Medical History: Asthma, CAD, COPD, Diabetes-Type II, DVT, GERD, Hyp ertension, Migraines, UTI, Other Additional Past Medical Histor: low back strain,hyperglycemia,resp failur e,chronic left knee pain,ileus, Past Surgical History: Appendectomy, Cholecystectomy, Hysterectomy, Other Additional Past Surgical Histo: bilateral shoulders,hernia repair x's 7,bilateral cataracts,colon resection Smoking Status: Never Smoker Alcohol Use: None Drug Use: None Adult General Chief Complaint Chief Complaint: SUTURE/STAPLE REMOVAL HPI HPI Patient is a 69 year old female who presents to the emergency department, accompanied by her granddaughter, with request to have 2 wendy removed from her scalp. Patient states she was a patient here a week ago yesterday and had 2 wendy placed in her scalp. Patient denies any fever, headache, vision changes, nausea, or vomiting. She denies any redness, warmth, or drainage from the site. Patient currently denies any pain. Review of Systems Review of Systems Complete ROS is negative unless otherwise noted in HPI. Allergies Allergies Allergies Coded Allergies Type Severity Reaction Last Updated Verified Penicillins Allergy Severe itching, dry mouth, tongue swells 01/24/18 Yes Sulfa (Sulfonamide Antibiotics) Allergy Intermediate ITCHING DRY MOUTH, hives /swelling 12/16/15 Yes fentanyl Allergy Intermediate 12/16/15 Yes hydromorphone HCl Allergy Intermediate MORPHINE OK 12/16/15 Yes methylprednisolone Allergy Intermediate RED MAN SYNDROME 10/11/16 Yes prednisone Allergy Intermediate RED MED SYNDROME 10/11/16 Yes gluten Allergy Mild bloating 04/18/17 Yes I S O L A T I O N *CONTACT* Allergy Unknown 02/04/17 Yes oxycodone HCl Adverse Reaction Intermediate "i FEEL LIKE I HAVE WORMS IN ME" 12/16/15 Yes Physical Exam Physical Exam See Above Constitutional: Well developed, well nourished, no acute distress, non-toxic appearance. [] HENT: Normocephalic, atraumatic, bilateral external ears normal, oropharynx moist, no oral exudates, nose normal. [] Eyes: PERRLA, EOMI, conjunctiva normal, no discharge. [] Neck: Normal range of motion, no stridor. [] Cardiovascular:Heart rate regular rhythm Lungs & Thorax: Respirations even and unlabored, no retractions, no respiratory distress Skin: Warm, dry, no erythema, no rash; 2 surgical wendy present in right posterior scalp, no surrounding redness, warmth, or drainage, wound edges are well approximated. [] Extremities: No cyanosis, ROM intact Neurologic: Alert and oriented X 3, no focal deficits noted. [] Psychologic: Affect normal, judgement normal, mood normal. [] Current Patient Data Vital Signs Vital Signs Date Time Temp Pulse Resp B/P (MAP) Pulse Ox O2 Delivery O2 Flow Rate FiO2 10/23/19 22:20 99.1 99 18 151/65 (93) 96 Room Air 99.1 Complete ROS is negative unles EKG EKG [] Radiology/Procedures Radiology/Procedures 2 wendy were removed from the posterior scalp by myself using a staple remover. There was no bleeding or drainage following the removal of the wendy. No complications. Patient tolerated procedure well. [] Course & Med Decision Making Course & Med Decision Making Pertinent Labs and Imaging studies reviewed. (See chart for details) [] Dragon Disclaimer Dragon Disclaimer This electronic medical record was generated, in whole or in part, using a voice recognition dictation system. Departure Departure Impression: Primary Impression: Encounter for removal of wendy Disposition: HOME, SELF-CARE Condition: STABLE Referrals: Meagan ALVAREZ MD (PCP) Patient Instructions: Staple Removal, Care After Additional Instructions: Follow the instructions provided. You may take Tylenol or ibuprofen as needed for pain. Return to the ER as needed. GIANNA VIDES APRN Oct 23, 2019 22:36
== END 2019-10-23 22:43 | disposition home or self-care (01) ==
LOC: ER 21:33
DX: S01.01XD Laceration without foreign body of scalp, subsequent encounter (principal); J44.9 Chronic obstructive pulmonary disease, unspecified; K21.9 Gastro-esophageal reflux disease without esophagitis; I10 Essential (primary) hypertension; G43.909 Migraine, unspecified, not intractable, without status migrainosus; I25.10 Atherosclerotic heart disease of native coronary artery without angina pectoris; Z86.718 Personal history of other venous thrombosis and embolism; E11.65 Type 2 diabetes mellitus with hyperglycemia; Z88.0 Allergy status to penicillin; Z88.2 Allergy status to sulfonamides; Z88.4 Allergy status to anesthetic agent; Z88.5 Allergy status to narcotic agent; Z91.041 Radiographic dye allergy status; Z88.8 Allergy status to other drugs, medicaments and biological substances; X58.XXXD Exposure to other specified factors, subsequent encounter
CPT/HCPCS: 99281

== ENCOUNTER 2020-01-20 11:53 | Emergency (ER) | payer BC, OTHER ==
[~2020-01-20] VITALS: Ht 165.1 cm; Wt 126.3 kg
[~2020-01-20 11:53] MED LIST changes: +BISA10SU4 PR; +DICY10CA3 PO; +ENOX100D3 SQ; +INSU100V6 SQ; +POLY17PO28 PO
[2020-01-20] MEDS ORDERED: ONDANSETRON PF 4 MG/2 ML VIAL. IVP ONE (12:30)
[2020-01-20] MEDS ORDERED: MORPHINE SULFATE 4 MG/ML VIAL. IV/SQ PRN (12:30)
[2020-01-20 12:43] LABS: BILIRUBIN,URINE NEGATIVE (NEG); CLARITY,URINE CLEAR; COLOR,URINE YELLOW; NITRITE,URINE NEGATIVE (NEG); PROTEIN,URINE 30 mg/dL (NEG-TRACE); UROBILINOGEN,URINE 0.2 mg/dL (0.2 mg/dL)
[2020-01-20 13:11] LABS: BACTERIA,URINE MOD /HPF (0-FEW); RBC,URINE 0 /HPF (0-2); SQUAMOUS EPITHELIAL CELL,UR MANY /LPF; WBC,URINE 0 /HPF (0-4)
[2020-01-20 13:25] LABS: BASO # 0.1 x10^3/uL (0.0-0.2); BASO % 1 % (0-3); EOS # 0.2 x10^3/uL (0.0-0.7); EOS % 3 % (0-3); HEMATOCRIT 39.1 % (36.0-47.0); HEMOGLOBIN 13.4 g/dL (12.0-15.5); LYMPH # 3.7 x10^3/uL (1.0-4.8); LYMPH % 40 % (24-48); MEAN CORPUSCULAR HEMOGLOBIN 29 pg (25-35); MEAN CORPUSCULAR HGB CONC 34 g/dL (31-37); MEAN CORPUSCULAR VOLUME 86 fL (79-100); MONO # 0.6 x10^3/uL (0.0-1.1); MONO % 6 % (0-9); NEUT # 4.6 x10^3/uL (1.8-7.7); NEUT % 50 % (31-73); PLATELET COUNT 320 x10^3/uL (140-400); RED BLOOD COUNT 4.57 x10^6/uL (3.50-5.40); RED CELL DISTRIBUTION WIDTH 14.6 % (11.5-14.5); WHITE BLOOD COUNT 9.2 x10^3/uL (4.0-11.0)
[2020-01-20 13:37] LABS: CALCIUM 9.2 mg/dL (8.5-10.1); CREATININE 0.8 mg/dL (0.6-1.0); GFR 71.3; POTASSIUM 3.7 mmol/L (3.5-5.1)
[2020-01-20 13:43] LABS: ALBUMIN 3.3 g/dL (3.4-5.0); ALBUMIN/GLOBULIN RATIO 0.8 (1.0-1.7); MAGNESIUM 1.8 mg/dL (1.8-2.4); TOTAL BILIRUBIN 0.3 mg/dL (0.2-1.0); TOTAL PROTEIN 7.3 g/dL (6.4-8.2)
--- NOTE | 2020-01-20 13:49 | RAD ---
PROCEDURE: ACUTE ABDOMEN SERIES STUDY DATE: 01/20/2020 CLINICAL INDICATION / HISTORY: Reason: abd pain hx of SBO / Spl. Instructions: / History: . TECHNIQUE: Upright PA chest, supine and upright films of the abdomen were obtained. COMPARISON: 01/02/2020 obstructive series and 01/04/2020 obstructive series. FINDINGS: AP view the chest reveals the lungs to be clear. Cardiac and mediastinal silhouette are unremarkable. No free air is identified below the diaphragms. Supine and upright views of the abdomen reveal decrease but not complete resolution in gas-filled bowel loops, primarily large bowel. No wall thickening, pneumatosis or evidence of portal venous gas. No organomegaly is present. No destructive osseous lesions. Bilateral humeral arthroplasties and cholecystectomy clips are evident. IMPRESSION: Improving findings of gaseous distention of bowel, suggesting an improving ileus. No findings of bowel perforation. Electronically signed by: Lisa Nichols MD (01/20/2020 1:46 PM) [id number]
[2020-01-20] MEDS ORDERED: ONDA4TAB12 PO (14:32)
--- NOTE | 2020-01-20 14:32 | PHYS DOC ---
Past Medical History Past Medical History: Asthma, CAD, COPD, Diabetes-Type II, DVT, GERD, Hypertension, Migraines, UTI, Other Additional Past Medical Histor: PE, chronic back/abdominal pain Past Surgical History: Appendectomy, Cholecystectomy, Hysterectomy, Other Additional Past Surgical Histo: bilateral shoulders,hernia repair x's 7,bilateral cataracts,colon resection Smoking Status: Never Smoker Alcohol Use: None Drug Use: None General Adult EDM: Chief Complaint: ABDOMINAL PAIN HPI: HPI: Patient is a 69 year old female with a history of diabetes type 2, hypertension, morbidly obese, acid reflux, DVT, COPD, among other health illnesses who presents to the ED today complaining of 10 out of 10 bilateral lower abdominal pain with nausea, foul-smelling bulge, and diarrhea that began last night. Patient states the last time she had similar symptoms a week ago she had a partial small bowel obstruction which she was told she is not a surgical candidate and it will resolve on its own. Patient states she called the PCP and was told to come to the ED for possibility of having the same. Denies any fever. Denies anything specifically exacerbating or relieving her pain. Describes the pain as sharp and intermittent Review of Systems: Review of Systems: Constitutional: Denies fever or chills. [] Eyes: Denies change in visual acuity. [] HENT: Denies nasal congestion or sore throat. [] Respiratory: Denies cough or shortness of breath. [] Cardiovascular: Denies chest pain or edema. [] GI: Reports bilateral lower abdominal pain with nausea, foul-smelling bulge, and diarrhea bloody stools : Denies dysuria. [] Musculoskeletal: Denies back pain or joint pain. [] Integument: Denies rash. [] Neurologic: Denies headache, focal weakness or sensory changes. [] Endocrine: Denies polyuria or polydipsia. [] Lymphatic: Denies swollen glands. [] Psychiatric: Denies depression or anxiety. [] Heart Score: Risk Factors: Risk Factors: DM, Current or recent (<one month) smoker, HTN, HLP, family history of CAD, obesity. Risk Scores: Score 0 - 3: 2.5% MACE over next 6 weeks - Discharge Home Score 4 - 6: 20.3% MACE over next 6 weeks - Admit for Clinical Observation Score 7 - 10: 72.7% MACE over next 6 weeks - Early Invasive Strategies Current Medications: Current Medications Medications (Trade) Dose Ordered Sig/Irish Start Time Stop Time Status Last Admin Dose Admin Morphine Sulfate (Morphine Sulfate) 4 mg PRN Q15MIN PRN 01/20/20 12:30 01/21/20 12:29 01/20/20 14:24 4 MG Ondansetron HCl (Zofran) 4 mg 1X ONCE 01/20/20 12:30 01/20/20 12:33 DC 01/20/20 14:24 4 MG Allergies: Allergies: Allergies Coded Allergies Type Severity Reaction Last Updated Verified Penicillins Allergy Severe itching, dry mouth, tongue swells 01/24/18 Yes Sulfa (Sulfonamide Antibiotics) Allergy Intermediate ITCHING DRY MOUTH, hives/swelling 12/16/15 Yes fentanyl Allergy Intermediate 12/16/15 Yes hydromorphone HCl Allergy Intermediate MORPHINE OK 12/16/15 Yes methylprednisolone Allergy Intermediate RED MAN SYNDROME 10/11/16 Yes prednisone Allergy Intermediate RED MED SYNDROME 10/11/16 Yes gluten Allergy Mild bloating 04/18/17 Yes I S O L A T I O N *CONTACT* Allergy Unknown 02/04/17 Yes oxycodone HCl Adverse Reaction Intermediate "i FEEL LIKE I HAVE WORMS IN ME" 12/16/15 Yes Physical Exam: PE: Constitutional: Well developed, well nourished, no acute distress, non-toxic appearance. [] HENT: Normocephalic, atraumatic, bilateral external ears normal, oropharynx moist, no oral exudates, nose normal. [] Eyes: PERRLA, EOMI, conjunctiva normal, no discharge. [] Neck: Normal range of motion, no tenderness, supple, no stridor. [] Cardiovascular:Heart rate regular rhythm, no murmur [] Lungs & Thorax: Bilateral breath sounds clear to auscultation [] Abdomen: Obese abdomen. Bowel sounds normal, soft, no tenderness, no masses, no pulsatile masses. [] Skin: Warm, dry, no erythema, no rash. [] Back: No tenderness, no CVA tenderness. [] Extremities: No tenderness, no cyanosis, no clubbing, ROM intact, no edema. [] Neurologic: Alert and oriented X 3, normal motor function, normal sensory function, no focal deficits noted. [] Psychologic: Affect normal, judgement normal, mood normal. [] Current Patient Data: Labs: Laboratory Tests Test 01/20/20 12:00 01/20/20 13:15 Urine Collection Type Unknown Urine Color Yellow Urine Clarity Clear Urine pH 6.0 (<5.0-8.0) Urine Specific [place] 1.015 (1.000-1.030) Urine Protein 30 mg/dL (NEG-TRACE) Urine Glucose (UA) 250 mg/dL (NEG) Urine Ketones (Stick) Negative mg/dL (NEG) Urine Blood Negative (NEG) Urine Nitrite Negative (NEG) Urine Bilirubin Negative (NEG) Urine Urobilinogen Dipstick 0.2 mg/dL (0.2 mg/dL) Urine Leukocyte Esterase Negative (NEG) Urine RBC 0 /HPF (0-2) Urine WBC 0 /HPF (0-4) Urine Squamous Epithelial Cells Many /LPF Urine Bacteria Mod /HPF (0-FEW) White Blood Count 9.2 x10^3/uL (4.0-11.0) Red Blood Count 4.57 x10^6/uL (3.50-5.40) Hemoglobin 13.4 g/dL (12.0-15.5) Hematocrit 39.1 % (36.0-47.0) Mean Corpuscular Volume 86 fL (79-100) Mean Corpuscular Hemoglobin 29 pg (25-35) Mean Corpuscular Hemoglobin Concent 34 g/dL (31-37) Red Cell Distribution Width 14.6 % (11.5-14.5) H Platelet Count 320 x10^3/uL (140-400) Neutrophils (%) (Auto) 50 % (31-73) Lymphocytes (%) (Auto) 40 % (24-48) Monocytes (%) (Auto) 6 % (0-9) Eosinophils (%) (Auto) 3 % (0-3) Basophils (%) (Auto) 1 % (0-3) Neutrophils # (Auto) 4.6 x10^3/uL (1.8-7.7) Lymphocytes # (Auto) 3.7 x10^3/uL (1.0-4.8) Monocytes # (Auto) 0.6 x10^3/uL (0.0-1.1) Eosinophils # (Auto) 0.2 x10^3/uL (0.0-0.7) Basophils # (Auto) 0.1 x10^3/uL (0.0-0.2) Sodium Level 138 mmol/L (136-145) Potassium Level 3.7 mmol/L (3.5-5.1) Chloride Level 100 mmol/L (98-107) Carbon Dioxide Level 27 mmol/L (21-32) Anion Gap 11 (6-14) Blood Urea Nitrogen 13 mg/dL (7-20) Creatinine 0.8 mg/dL (0.6-1.0) Estimated GFR (Cockcroft-Gault) 71.3 BUN/Creatinine Ratio 16 (6-20) Glucose Level 113 mg/dL (70-99) H Calcium Level 9.2 mg/dL (8.5-10.1) Magnesium Level 1.8 mg/dL (1.8-2.4) Total Bilirubin 0.3 mg/dL (0.2-1.0) Aspartate Amino Transferase (AST) 31 U/L (15-37) Alanine Aminotransferase (ALT) 40 U/L (14-59) Alkaline Phosphatase 127 U/L (46-116) H Total Protein 7.3 g/dL (6.4-8.2) Albumin 3.3 g/dL (3.4-5.0) L Albumin/Globulin Ratio 0.8 (1.0-1.7) L Lipase 292 U/L (73-393) Laboratory Tests 01/20/20 13:15 Laboratory Tests 01/20/20 13:15 Vital Signs: Vital Signs Date Time Temp Pulse Resp B/P (MAP) Pulse Ox O2 Delivery O2 Flow Rate FiO2 01/20/20 14:24 16 98 Room Air 01/20/20 12:11 98.0 94 205/69 (114) 98.0 EKG: EKG: [] Radiology/Procedures: Radiology/Procedures: []PROCEDURE: ACUTE ABDOMEN SERIES PROCEDURE: ACUTE ABDOMEN SERIES STUDY DATE: 01/20/2020 CLINICAL INDICATION / HISTORY: Reason: abd pain hx of SBO / Spl. Instructions: / History: . TECHNIQUE: Upright PA chest, supine and upright films of the abdomen were obtained. COMPARISON: 01/02/2020 obstructive series and 01/04/2020 obstructive series. FINDINGS: AP view the chest reveals the lungs to be clear. Cardiac and mediastinal silhouette are unremarkable. No free air is identified below the diaphragms. Supine and upright views of the abdomen reveal decrease but not complete resolution in gas-filled bowel loops, primarily large bowel. No wall thickening, pneumatosis or evidence of portal venous gas. No organomegaly is present. No destructive osseous lesions. Bilateral humeral arthroplasties and cholecystectomy clips are evident. IMPRESSION: Improving findings of gaseous distention of bowel, suggesting an improving ileus. No findings of bowel perforation. Electronically signed by: Js Nichols MD (01/20/2020 1:46 PM) [id number] DICTATED and SIGNED BY: JS NICHOLS MD DATE: 01/20/20 0411 Course & Med Decision Making: Course & Med Decision Making Pertinent Labs and Imaging studies reviewed. (See chart for details) This is a 69-year-old female patient well-known to this ED presenting today complaining of bilateral lower abdominal pain with nausea, foul-smelling bulge, and diarrhea symptoms began yesterday. Patient has history of small bowel obstruction/ileus which she was diagnosed multiple times including last week and was told she is a nonsurgical candidate. CBC, CMP, UA, lipase-no acute findings Abdominal series xray interpreted by radiologist-Improving findings of gaseous distention of bowel, suggesting an improving ileus. No findings of bowel perforation. D/c to home. F/u with PCP, GI and general surgery in 1 week Vanessa Disclaimer: Vanessa Disclaimer: This electronic medical record was generated, in whole or in part, using a voice recognition dictation system. Departure Departure Impression: Primary Impression: Chronic abdominal pain Disposition: HOME, SELF-CARE Condition: STABLE Referrals: Meagan ALVAREZ MD (PCP) follow up next week MARIANNA LEMA MD follow up next week HAKEEM CRUZ MD follow up next week Patient Instructions: Abdominal Pain Additional Instructions: Your abdominal x-ray shows her ileus is improving. Please follow-up with your own doctor or the provided specialist in 1 to 2 weeks. Try to go on a clear liquid diet for the next 24 to 48 hours. Scripts Ondansetron (ONDANSETRON ODT) 4 Mg Tab.rapdis 1 TAB PO PRN Q6-8HRS, #16 TAB Prov: HEIDI BEACH [employer]ENT 01/20/20 HEIDI BEACH APRN Jan 20, 2020 14:32
[2020-01-20 15:00] VITALS: BP 168/65
== END 2020-01-20 15:07 | disposition home or self-care (01) ==
LOC: ER 11:53
DX: G89.29 Other chronic pain (principal); R10.31 Right lower quadrant pain; R10.32 Left lower quadrant pain; R19.7 Diarrhea, unspecified; R11.0 Nausea; J44.9 Chronic obstructive pulmonary disease, unspecified; I25.10 Atherosclerotic heart disease of native coronary artery without angina pectoris; E11.9 Type 2 diabetes mellitus without complications; K21.9 Gastro-esophageal reflux disease without esophagitis; I10 Essential (primary) hypertension; G43.909 Migraine, unspecified, not intractable, without status migrainosus; Z86.718 Personal history of other venous thrombosis and embolism; Z87.440 Personal history of urinary (tract) infections; Z90.49 Acquired absence of other specified parts of digestive tract; Z90.89 Acquired absence of other organs; Z90.710 Acquired absence of both cervix and uterus; Z86.711 Personal history of pulmonary embolism; Z88.0 Allergy status to penicillin; Z88.2 Allergy status to sulfonamides; Z88.4 Allergy status to anesthetic agent; Z88.5 Allergy status to narcotic agent; Z91.041 Radiographic dye allergy status; Z88.8 Allergy status to other drugs, medicaments and biological substances
CPT/HCPCS: 36415; 74022; 80053; 81001; 83690; 83735; 85025; 96374; 96375; 99285; J2270; J2405

== ENCOUNTER 2020-01-26 19:38 | Emergency (ER) | payer BC, OTHER ==
[~2020-01-26] VITALS: Ht 165.1 cm; Wt 123.0 kg
--- NOTE | 2020-01-26 19:55 | PHYS DOC ---
Past Medical History Past Medical History: Asthma, CAD, COPD, Diabetes-Type II, DVT, GERD, Hyp ertension, Migraines, UTI, Other Additional Past Medical Histor: PE, chronic back/abdominal pain Past Surgical History: Appendectomy, Cholecystectomy, Hysterectomy, Other Additional Past Surgical Histo: bilateral shoulders,hernia repair x's 7,bilateral cataracts,colon resection Smoking Status: Never Smoker Alcohol Use: None Drug Use: None General Adult EDM: Chief Complaint: SHORTNESS OF BREATH HPI: HPI: Patient is a 69 year old female who presents with a 2-day history of shortness of breath and wheezing. Patient states that she has a history of asthma and states that her asthma symptoms have been getting worse over the last couple of days. She states that she had a breathing treatment at home at 6:00 but it is not helping. She denies any chest pain but does complain of tightness in the chest. Patient does indicate that she has a dry cough and no fever. She states that shortness of breath is worsened with exertion. [] Review of Systems: Review of Systems: Constitutional: Denies fever or chills. [] Respiratory: Complains of cough, wheezing and shortness of breath. [] Cardiovascular: Denies chest pain or edema. [] GI: Denies abdominal pain, nausea, vomiting, bloody stools or diarrhea. [] Neurologic: Denies headache, focal weakness or sensory changes. [] A full 10 point review of systems has been reviewed and is otherwise negative. Heart Score: Risk Factors: Risk Factors: DM, Current or recent (<one month) smoker, HTN, HLP, family history of CAD, obesity. Risk Scores: Score 0 - 3: 2.5% MACE over next 6 weeks - Discharge Home Score 4 - 6: 20.3% MACE over next 6 weeks - Admit for Clinical Observation Score 7 - 10: 72.7% MACE over next 6 weeks - Early Invasive Strategies Allergies: Allergies: Allergies Coded Allergies Type Severity Reaction Last Updated Verified Penicillins Allergy Severe itching, dry mouth, tongue swells 01/24/18 Yes Sulfa (Sulfonamide Antibiotics) Allergy Intermediate ITCHING DRY MOUTH, hives/swelling 12/16/15 Yes fentanyl Allergy Intermediate 12/16/15 Yes hydromorphone HCl Allergy Intermediate MORPHINE OK 12/16/15 Yes methylprednisolone Allergy Intermediate RED MAN SYNDROME 10/11/16 Yes prednisone Allergy Intermediate RED MED SYNDROME 10/11/16 Yes gluten Allergy Mild bloating 04/18/17 Yes I S O L A T I O N *CONTACT* Allergy Unknown 02/04/17 Yes oxycodone HCl Adverse Reaction Intermediate "i FEEL LIKE I HAVE WORMS IN ME" 12/16/15 Yes Physical Exam: PE: Constitutional: Well developed, well nourished, no acute distress, non-toxic appearance. [] HENT: Normocephalic, atraumatic, bilateral external ears normal, oropharynx moist, no oral exudates, nose normal. [] Eyes: PERRLA, EOMI, conjunctiva normal, no discharge. [] Neck: Normal range of motion, no tenderness, supple, no stridor. [] Cardiovascular: Regular rate and rhythm [] Lungs & Thorax: Good air movement is noted throughout with inspiratory and expiratory wheezes bilaterally to auscultation [] Abdomen: Bowel sounds normal, soft, no tendernesss. [] Skin: Warm, dry, no erythema, no rash. [] Extremities: No tenderness, no cyanosis, no clubbing, ROM intact. [] Neurologic: Alert and oriented X 3, no focal deficits noted. [] EKG: EKG: [] Radiology/Procedures: Radiology/Procedures: [] Impression: PROCEDURE: PORTABLE CHEST 1V Exam: Chest one view INDICATION: Shortness of breath TECHNIQUE: Frontal view of the chest Comparisons: 10/11/2019 FINDINGS: The cardiomediastinal silhouette and pulmonary vessels are within normal limits. The lung and pleural spaces are clear. IMPRESSION: No acute cardiopulmonary process. Electronically signed by: Dolores Funes MD (01/26/2020 8:39 PM) [id number] Course & Med Decision Making: Course & Med Decision Making Pertinent Labs and Imaging studies reviewed. (See chart for details) [] Dragon Disclaimer: Dragon Disclaimer: This electronic medical record was generated, in whole or in part, using a voice recognition dictation system. Departure Departure Impression: Primary Impression: Asthma exacerbation Qualified Codes: J45.901 - Unspecified asthma with (acute) exacerbation Disposition: HOME, SELF-CARE Condition: STABLE Referrals: Meagan ALVAREZ MD (PCP) Patient Instructions: Asthma, Adult Justicifation of Admission Dx: Justifications for Admission: Justification of Admission Dx: N/A BRIELLE SUGGS Jr. DO Jan 26, 2020 19:55
[2020-01-26] MEDS ORDERED: ALBUTEROL SULFATE 2.5 MG/3 ML NEBU. NEB ONE (20:00)
[2020-01-26] MEDS ORDERED: IPRATRPIUM/ALBUTEROL 0.5/2.5MG 3 ML NEBU. NEB ONE (20:00)
[2020-01-26] MEDS ORDERED: methylPREDNISolone SOD SUCC PF 125 MG/2 ML VIAL. IV ONE (20:00)
[2020-01-26] MEDS ORDERED: diphenhydrAMINE 50 MG/ML VIAL IVP ONE (20:00)
[2020-01-26 20:11] LABS: BASO % 0 % (0-3); EOS # 0.3 x10^3/uL (0.0-0.7); EOS % 2 % (0-3); HEMATOCRIT 40.5 % (36.0-47.0); LYMPH # 4.3 x10^3/uL (1.0-4.8); LYMPH % 38 % (24-48); MEAN CORPUSCULAR HEMOGLOBIN 30 pg (25-35); MEAN CORPUSCULAR HGB CONC 35 g/dL (31-37); MEAN CORPUSCULAR VOLUME 86 fL (79-100); MONO # 0.6 x10^3/uL (0.0-1.1); MONO % 5 % (0-9); NEUT # 6.1 x10^3/uL (1.8-7.7); NEUT % 54 % (31-73); PLATELET COUNT 370 x10^3/uL (140-400); RED CELL DISTRIBUTION WIDTH 14.5 % (11.5-14.5); WHITE BLOOD COUNT 11.3 x10^3/uL (4.0-11.0)
[2020-01-26 20:23] LABS: CALCIUM 9.1 mg/dL (8.5-10.1); CREATININE 0.9 mg/dL (0.6-1.0); GFR 62.3; POTASSIUM 3.7 mmol/L (3.5-5.1)
[2020-01-26 20:29] LABS: ALBUMIN 3.3 g/dL (3.4-5.0); ALBUMIN/GLOBULIN RATIO 0.8 (1.0-1.7); TOTAL BILIRUBIN 0.4 mg/dL (0.2-1.0); TOTAL PROTEIN 7.4 g/dL (6.4-8.2)
[2020-01-26] MEDS ORDERED: KETOROLAC 15 MG/ML VIAL. IVP ONE (20:30)
[2020-01-26] MEDS ORDERED: ONDANSETRON PF 4 MG/2 ML VIAL. IVP ONE (20:30)
--- NOTE | 2020-01-26 20:42 | RAD ---
Exam: Chest one view INDICATION: Shortness of breath TECHNIQUE: Frontal view of the chest Comparisons: 10/11/2019 FINDINGS: The cardiomediastinal silhouette and pulmonary vessels are within normal limits. The lung and pleural spaces are clear. IMPRESSION: No acute cardiopulmonary process. Electronically signed by: Dolores Funes MD (01/26/2020 8:39 PM) [id number]
[2020-01-26 22:29] VITALS: BP 137/63
--- NOTE | 2020-01-27 06:26 | EKG ---
[facility] [address] [place] [address] Test Date: 2020-01-26 Test Time: 20:01:35 Pat Name: ELY CARDOZA Department: Room: Gender: F [employer]: : 1950 Requested By: BRIELLE SUGGS Order Number: [id number] Reading MD: Roland Echols Measurements Intervals [place] Rate: 92 P: 52 MA: 176 QRS: -22 QRSD: 76 T: 77 QT: 340 QTc: 425 Interpretive Statements SINUS RHYTHM LEFTWARD AXIS QRS(T) CONTOUR ABNORMALITY CONSISTENT WITH POSSIBLE OLD ANTEROSEPTAL INFARCT Electronically Signed On 01-29-2020 16:17:30 CDT by Roland Echols
[2020-01-31] MEDS ORDERED: LISI-130 PO (12:04)
== END 2020-01-26 22:36 | disposition home or self-care (01) ==
LOC: ER 19:38
DX: J45.901 Unspecified asthma with (acute) exacerbation (principal); J44.9 Chronic obstructive pulmonary disease, unspecified; E11.9 Type 2 diabetes mellitus without complications; K21.9 Gastro-esophageal reflux disease without esophagitis; I10 Essential (primary) hypertension; G43.909 Migraine, unspecified, not intractable, without status migrainosus; G89.29 Other chronic pain; I25.10 Atherosclerotic heart disease of native coronary artery without angina pectoris; Z86.718 Personal history of other venous thrombosis and embolism; Z87.440 Personal history of urinary (tract) infections; Z90.89 Acquired absence of other organs; Z90.49 Acquired absence of other specified parts of digestive tract; Z90.710 Acquired absence of both cervix and uterus; Z88.0 Allergy status to penicillin; Z88.4 Allergy status to anesthetic agent; Z88.2 Allergy status to sulfonamides; Z91.041 Radiographic dye allergy status; Z88.5 Allergy status to narcotic agent; Z88.8 Allergy status to other drugs, medicaments and biological substances
CPT/HCPCS: 36415; 71045; 80053; 83880; 85025; 93005; 94640; 96374; 96375; 99285; J1200; J1885; J2060; J2405; J2930

== ENCOUNTER 2020-01-29 20:08 | Inpatient (IN) | payer BC, OTHER ==
[~2020-01-29] VITALS: Ht 165.1 cm; Wt 126.4 kg
[2020-01-29] MEDS ORDERED: IPRATRPIUM/ALBUTEROL 0.5/2.5MG 3 ML NEBU. NEB ONE (20:30)
--- NOTE | 2020-01-29 20:31 | PHYS DOC ---
Past Medical History Past Medical History: Asthma, CAD, COPD, Diabetes-Type II, DVT, GERD, Hyp ertension, Migraines, UTI, Other Additional Past Medical Histor: PE, chronic back/abdominal pain Past Surgical History: Appendectomy, Cholecystectomy, Hysterectomy, Other Additional Past Surgical Histo: bilateral shoulders,hernia repair x's 7,bilateral cataracts,colon resection Smoking Status: Never Smoker Alcohol Use: None Drug Use: None General Adult EDM: Chief Complaint: SHORTNESS OF BREATH HPI: HPI: Patient is a 69 year old female who presents with complaint of shortness of breath that started about 20 minutes prior to arrival. She states that she took 2 albuterol treatments at home without relief. She also complains of tightness in her chest but states that that is usual with her asthma. Patient denies any nausea, vomiting or diaphoresis. She states that shortness of breath is worsened with exertion. [] Review of Systems: Review of Systems: Constitutional: Denies fever or chills. [] Respiratory: Complains of cough and shortness of breath. [] Cardiovascular: Denies chest pain or edema. [] GI: Denies abdominal pain, nausea, vomiting or diarrhea. [] Integument: Denies rash. [] Neurologic: Denies headache, focal weakness or sensory changes. [] Heart Score: HEART Score for Chest Pain: HEART Score for Chest Pain Response (Comments) Value History Slighlty/Non-Suspicious 0 ECG Nonspecific Repolarizatio 1 Age > 65 2 Risk Factors 1 or 2 Risk Factors 1 Troponin >1-<3x Normal Limit 1 Total 5 Risk Factors: Risk Factors: DM, Current or recent (<one month) smoker, HTN, HLP, family history of CAD, obesity. Risk Scores: Score 0 - 3: 2.5% MACE over next 6 weeks - Discharge Home Score 4 - 6: 20.3% MACE over next 6 weeks - Admit for Clinical Observation Score 7 - 10: 72.7% MACE over next 6 weeks - Early Invasive Strategies Allergies: Allergies: Allergies Coded Allergies Type Severity Reaction Last Updated Verified Penicillins Allergy Severe itching, dry mouth, tongue swells 01/24/18 Yes Sulfa (Sulfonamide Antibiotics) Allergy Intermediate ITCHING DRY MOUTH, hives/swelling 12/16/15 Yes fentanyl Allergy Intermediate 12/16/15 Yes hydromorphone HCl Allergy Intermediate MORPHINE OK 12/16/15 Yes methylprednisolone Allergy Intermediate RED MAN SYNDROME 10/11/16 Yes prednisone Allergy Intermediate RED MED SYNDROME 10/11/16 Yes gluten Allergy Mild bloating 04/18/17 Yes I S O L A T I O N *CONTACT* Allergy Unknown 02/04/17 Yes oxycodone HCl Adverse Reaction Intermediate "i FEEL LIKE I HAVE WORMS IN ME" 12/16/15 Yes Physical Exam: PE: Constitutional: Well developed, well nourished, no acute distress, appears anxious. [] HENT: Normocephalic, atraumatic, bilateral external ears normal, oropharynx moist, no oral exudates, nose normal. [] Eyes: PERRLA, EOMI, conjunctiva normal, no discharge. [] Neck: Normal range of motion, no tenderness, supple, no stridor. [] Cardiovascular: Mildly tachycardic rate with regular rhythm [] Lungs & Thorax: Bilateral breath sounds clear to auscultation [] Abdomen: Bowel sounds normal, soft, no tenderness. [] Skin: Warm, dry, no erythema, no rash. [] Extremities: No tenderness, no cyanosis, no clubbing, ROM intact. [] Neurologic: Alert and oriented X 3, no focal deficits noted. [] EKG: EKG: EKG demonstrates sinus tachycardia with a rate of 106. [] Radiology/Procedures: Radiology/Procedures: [] Impression: PROCEDURE: CT ANGIOGRAPHY CHEST Study: CT CHEST WITH CONTRAST - PULMONARY ANGIOGRAM History: Shortness of air. Pulmonary embolism. Comparison: 10/13/2019 Technique: Helical CT of the chest performed after the administration of 99 cc Omnipaque 350 intravenous contrast and timed for angiographic evaluation of the pulmonary arteries per PE protocol. Coronal and sagittal 3D MIP reformations were obtained. One or more of the following individualized dose reduction techniques were utilized for this examination: 1. Automated exposure control 2. Adjustment of the mA and/or kV according to patient size 3. Use of iterative reconstruction technique. Findings: Pulmonary Arteries: No main, lobar or segmental pulmonary embolism. Within normal limits main pulmonary artery caliber. Heart/Systemic Vasculature: Extensive calcific coronary artery disease. Multifocal calcific atherosclerosis throughout the visualized aorta as well as involving the great vessels. No aneurysmal dilatation or dissection. Mediastinum: No newly seen lymphadenopathy. No pericardial effusion. Lungs: A right lower lobe nodule on image 88 series 3 has decreased in size. Tiny lingular nodule on image 69 series 3 is unchanged. No lobar consolidation, pleural effusion or pneumothorax. Neck/Axilla/Body Wall: No newly seen abnormality. Upper Abdomen: Status post cholecystectomy. Probable hepatic and splenic enlargement noting incomplete visualization. Bones: Bilateral shoulder arthroplasty. Multifocal degenerative changes throughout the imaged spinal column. Miscellaneous: Sequela of a remote granulomatous process IMPRESSION: 1. No main, lobar or segmental pulmonary embolism. No acute abnormality to account for the patient's symptoms. 2. Chronic findings as detailed above. 3. Recommend caution with CT imaging going forward as the patient has had nearly 70 CTs since 2007. Electronically signed by: SARAH KOCH MD (01/29/2020 10:20 PM) [id number] DICTATED and SIGNED BY: SARAH KOCH MD DATE: 01/29/202219 Course & Med Decision Making: Course & Med Decision Making Pertinent Labs and Imaging studies reviewed. (See chart for details) [] Dragon Disclaimer: Dragon Disclaimer: This electronic medical record was generated, in whole or in part, using a voice recognition dictation system. Departure Departure Impression: Primary Impression: Atypical chest pain Additional Impressions: Hyperglycemia Asthma exacerbation Qualified Codes: J45.901 - Unspecified asthma with (acute) exacerbation Elevated troponin HTN (hypertension) Qualified Codes: I10 - Essential (primary) hypertension Disposition: ADMITTED INPATIENT Condition: IMPROVED Referrals: Meagan ALVAREZ MD (PCP) Justicifation of Admission Dx: Justifications for Admission: Justification of Admission Dx: Comment: (Atypical chest pain and elevated troponin) BRIELLE SUGGS Jr. DO Jan 29, 2020 20:30
[2020-01-29 20:36] LABS: BASO % 0 % (0-3); EOS # 0.3 x10^3/uL (0.0-0.7); EOS % 3 % (0-3); HEMATOCRIT 38.6 % (36.0-47.0); HEMOGLOBIN 13.2 g/dL (12.0-15.5); LYMPH # 4.2 x10^3/uL (1.0-4.8); LYMPH % 42 % (24-48); MEAN CORPUSCULAR HEMOGLOBIN 30 pg (25-35); MEAN CORPUSCULAR HGB CONC 34 g/dL (31-37); MEAN CORPUSCULAR VOLUME 86 fL (79-100); MONO # 0.5 x10^3/uL (0.0-1.1); MONO % 5 % (0-9); NEUT # 5.1 x10^3/uL (1.8-7.7); NEUT % 51 % (31-73); PLATELET COUNT 330 x10^3/uL (140-400); RED BLOOD COUNT 4.46 x10^6/uL (3.50-5.40); RED CELL DISTRIBUTION WIDTH 14.4 % (11.5-14.5); WHITE BLOOD COUNT 10.2 x10^3/uL (4.0-11.0)
[2020-01-29 20:46] LABS: CALCIUM 8.7 mg/dL (8.5-10.1); CREATININE 0.9 mg/dL (0.6-1.0); GFR 62.3; POTASSIUM 3.5 mmol/L (3.5-5.1)
[2020-01-29 20:52] LABS: ALBUMIN/GLOBULIN RATIO 0.8 (1.0-1.7); TOTAL BILIRUBIN 0.2 mg/dL (0.2-1.0); TOTAL PROTEIN 6.7 g/dL (6.4-8.2)
--- NOTE | 2020-01-29 21:26 | RAD ---
Study: CR PORTABLE CHEST 1V Indication: Dyspnea. Comparison: 01/26/2020 Findings: Unchanged cardiomediastinal silhouette and jama. Redemonstrated and unchanged nodular focus within the mid left lung compatible with a granuloma. Soft tissue density focus projecting at the left lower lung is secondary to an EKG lead. No pneumothorax or layering effusion. Bilateral shoulder arthroplasty constructs. Impression: No acute radiographic abnormality of the chest. No significant change from 01/26/2020. Electronically signed by: SARAH KOCH MD (01/29/2020 9:23 PM) [id number]
[2020-01-29] MEDS ORDERED: IOHEXOL 350 MG/ML 100 ML VIAL. IV ONE (21:30)
[2020-01-29] MEDS ORDERED: CONTRAST GIVEN. MC PRN (21:30)
--- NOTE | 2020-01-29 22:23 | RAD ---
Study: CT CHEST WITH CONTRAST - PULMONARY ANGIOGRAM History: Shortness of air. Pulmonary embolism. Comparison: 10/13/2019 Technique: Helical CT of the chest performed after the administration of 99 cc Omnipaque 350 intravenous contrast and timed for angiographic evaluation of the pulmonary arteries per PE protocol. Coronal and sagittal 3D MIP reformations were obtained. One or more of the following individualized dose reduction techniques were utilized for this examination: 1. Automated exposure control 2. Adjustment of the mA and/or kV according to patient size 3. Use of iterative reconstruction technique. Findings: Pulmonary Arteries: No main, lobar or segmental pulmonary embolism. Within normal limits main pulmonary artery caliber. Heart/Systemic Vasculature: Extensive calcific coronary artery disease. Multifocal calcific atherosclerosis throughout the visualized aorta as well as involving the great vessels. No aneurysmal dilatation or dissection. Mediastinum: No newly seen lymphadenopathy. No pericardial effusion. Lungs: A right lower lobe nodule on image 88 series 3 has decreased in size. Tiny lingular nodule on image 69 series 3 is unchanged. No lobar consolidation, pleural effusion or pneumothorax. Neck/Axilla/Body Wall: No newly seen abnormality. Upper Abdomen: Status post cholecystectomy. Probable hepatic and splenic enlargement noting incomplete visualization. Bones: Bilateral shoulder arthroplasty. Multifocal degenerative changes throughout the imaged spinal column. Miscellaneous: Sequela of a remote granulomatous process IMPRESSION: 1. No main, lobar or segmental pulmonary embolism. No acute abnormality to account for the patient's symptoms. 2. Chronic findings as detailed above. 3. Recommend caution with CT imaging going forward as the patient has had nearly 70 CTs since 2007. Electronically signed by: SARAH KOCH MD (01/29/2020 10:20 PM) [id number]
[2020-01-29] MEDS ORDERED: HEPARIN 25,000UTS/250ML PREMIX 250 ML IV PRN (23:00)
[2020-01-29] MEDS ORDERED: HEPARIN for IV BOLUS 10,000 UNIT/10 ML VIAL. IV PRN (23:00)
[2020-01-29] MEDS ORDERED: MORPHINE SULFATE 4 MG/ML VIAL. IV ONE (23:00)
[2020-01-29] MEDS ORDERED: HEPARIN for IV BOLUS 10,000 UNIT/10 ML VIAL. IV ONE (23:00)
[2020-01-29] MEDS ORDERED: hydrALAZINE 20 MG/ML VIAL. IVP ONE (23:30)
[2020-01-30] MEDS: MORPHINE SULFATE 4 MG/ML VIAL. IV PRN ×3 (01:09→10:37)
[2020-01-30] MEDS: ONDANSETRON PF 4 MG/2 ML VIAL. IV PRN ×2 (02:56→10:30)
[2020-01-30 02:58] VITALS: BP 155/65
[2020-01-30 05:19] LABS: HEMATOCRIT 36.1 % (36.0-47.0); HEMOGLOBIN 12.1 g/dL (12.0-15.5); RED BLOOD COUNT 4.2 x10^6/uL (3.50-5.40); RED CELL DISTRIBUTION WIDTH 14.2 % (11.5-14.5); WHITE BLOOD COUNT 8.3 x10^3/uL (4.0-11.0)
[2020-01-30 07:00] VITALS: BP 182/77
[2020-01-30] MEDS ORDERED: INSU100C SQ (07:42)
[2020-01-30] MEDS ORDERED: INSU100I13 SQ (07:42)
[2020-01-30] MEDS ORDERED: IPRATRPIUM/ALBUTEROL 0.5/2.5MG 3 ML NEBU. NEB SCH (08:00)
[2020-01-30] MEDS ORDERED: DICYCLOMINE HCL 10 MG CAPSULE PO PRN (08:45)
[2020-01-30] MEDS ORDERED: BISACODYL 10 MG SUPP.RECT. PR PRN (08:45)
[2020-01-30] MEDS ORDERED: POTASSIUM CL 20MEQ D5-0.45NACL 1,000 ML IV ONE ×2 (08:45→10:30)
[2020-01-30] MEDS ORDERED: ONDANSETRON ODT 4 MG TAB.RAPDIS. PO PRN (08:45)
[2020-01-30] MEDS ORDERED: POLYETHYLENE GLYCOL 3350 17 GM PACKET. PO PRN (08:45)
[2020-01-30] MEDS ORDERED: LORazepam 0.5 MG TABLET PO PRN (08:45)
--- NOTE | 2020-01-30 08:59 | PDOC1 ---
History and Physical Date of Admission Date of Admission DATE: 01/30/20 TIME: 08:45 Identification/Chief Complaint Chief Complaint short of breath Source Source: Chart review, Patient History of Present Illness History of Present Illness Ms. Cardoza, is a 69 year old female admit with chestpain, new right sided chest pain, sharp with pressure and shortness of breath. her symptoms started suddenly last night and persist this AM. pain is somewhat reproducible She states that she thought she was having toruble with her asthma and took 2 albuterol treatments at home without relief. Patient denies any nausea, vomiting or diaphoresis. She states that shortness of breath is worsened with exertion. her PCP is Dr. Castro, she cannot recall a recent A1c level, she reports having a cardiac cath here within the past year. Past Medical History Cardiovascular: HTN, Hyperlipidemia Pulmonary: Asthma, Other GI: GERD Heme/Onc: Other Hepatobiliary: No pertinent hx Psych: Anxiety, Depression Musculoskeletal: Osteoarthritis Endocrine: Diabetes Past Surgical History Past Surgical History: Hernia Repair, Hysterectomy, Other Family History Family History: Diabetes, Heart Disease, Hypertension Social History Smoke: No ALCOHOL: none Drugs: None Current Problem List Problem List Problems Medical Problems: (1) Asthma exacerbation Status: Acute (2) Atypical chest pain Status: Acute (3) Elevated troponin Status: Acute (4) Hyperglycemia Status: Acute Current Medications Current Medications Current Medications Albuterol/ Ipratropium (Duoneb) 3 ml 1X ONCE NEB Last administered on 01/29/20at 20:43; Start 01/29/20 at 20:30; Stop 01/29/20 at 20:31; Status DC Lorazepam (Ativan Inj) 1 mg 1X ONCE IV Last administered on 01/29/20at 21:01; Start 01/29/20 at 20:30; Stop 01/29/20 at 20:31; Status DC Iohexol (Omnipaque 350 Mg/ml) 100 ml 1X ONCE IV Last administered on 01/29/20at 21:00; Start 01/29/20 at 21:30; Stop 01/29/20 at 21:31; Status DC Info (CONTRAST GIVEN -- Rx MONITORING) 1 each PRN DAILY PRN MC SEE COMMENTS; Start 01/29/20 at 21:30; Stop 01/31/20 at 21:29 Heparin Sodium (Porcine) (Heparin Sodium) 4,000 unit 1X ONCE IV Last administered on 01/29/20at 23:31; Start 01/29/20 at 23:00; Stop 01/29/20 at 23:01; Status DC Heparin Sodium/ Dextrose 250 ml @ 0 mls/hr CONT PRN IV PER PROTOCOL Last administered on 01/29/20at 23:33; Start 01/29/20 at 23:00 Heparin Sodium (Porcine) (Heparin Sodium) 3,050 unit PRN Q6HRS PRN IV FOR UFH LEVEL LESS THAN 0.2 Last administered on 01/30/20at 07:19; Start 01/29/20 at 23:00 Morphine Sulfate (Morphine Sulfate) 4 mg 1X ONCE IV Last administered on 01/29/20at 23:28; Start 01/29/20 at 23:00; Stop 01/29/20 at 23:01; Status DC Hydralazine HCl (Apresoline Inj) 10 mg 1X ONCE IVP Last administered on 01/29/20at 23:28; Start 01/29/20 at 23:30; Stop 01/29/20 at 23:31; Status DC Ondansetron HCl (Zofran) 4 mg PRN Q8HRS PRN IV NAUSEA/VOMITING Last administered on 01/30/20at 02:56; Start 01/29/20 at 23:30; Stop 01/30/20 at 23:29 Morphine Sulfate (Morphine Sulfate) 4 mg PRN Q2HR PRN IV PAIN Last administered on 01/30/20at 07:22; Start 01/29/20 at 23:30; Stop 01/30/20 at 23:29 Albuterol/ Ipratropium (Duoneb) 3 ml RTQID NEB Last administered on 01/30/20at 07:29; Start 01/30/20 at 08:00; Stop 01/31/20 at 07:59 Active Scripts Active Ondansetron Odt (Ondansetron) 4 Mg Tab.rapdis 1 Tab PO PRN Q6-8HRS Polyethylene Glycol 3350 17 Gm Powd.pack 17 Gm PO PRN DAILY PRN 30 Days Bisacodyl 10 Mg Supp.rect 10 Mg TX PRN DAILY PRN 30 Days Dicyclomine Hcl 10 Mg Capsule 10 Mg PO PRN QID PRN 30 Days Aspirin Ec (Aspirin) 81 Mg Tablet.dr 81 Mg PO DAILYWBKFT 30 Days Ondansetron Odt (Ondansetron) 4 Mg Tab.rapdis 1 Tab PO PRN Q6-8HRS PRN Ativan (Lorazepam) 0.5 Mg Tablet 0.5 Mg PO PRN Q8HRS PRN 30 Days Duoneb 0.5-3(2.5) Mg/3 Ml (Albuterol/Ipratropium) 3 Ml Ampul.neb 3 Ml NEB QID Linzess (Linaclotide) 145 Mcg Capsule 145 Mcg PO DAILY07 30 Days Fish Oil 1,000 Mg Capsule ([place]-3 Fatty Acids/Fish Oil) 1 Each Capsule 1,000 Mg PO DAILY 30 Days Reported Humalog (Insulin Lispro) 100 Unit/1 Ml Cartridge 20 Unit SQ TID Lantus Solostar (Insulin Glargine,Hum.rec.anlog) 100 Unit/1 Ml Insuln.pen 60 Unit SQ BID Warfarin Sodium 10 Mg Tablet 10 Mg PO DAILY Lisinopril 20 Mg Tablet 1 Tab PO DAILY Metoprolol Succinate ( Xl ) (Metoprolol Succinate) 25 Mg Tab.er.24h 1 Tab PO DAILY Vytorin 10-10 Mg Tablet (Ezetimibe/Simvastatin) 1 Each Tablet 1 Each PO HS Xopenex Hfa (Levalbuterol Tartrate) 15 Gm Hfa.aer.ad 15 Gm IH PRN BID PRN Spiriva (Tiotropium Arvin) 18 Mcg Cap.w.dev 18 Mcg IH DAILY Advair 250-50 Diskus (Fluticasone/Salmeterol) 1 Each Disk.w.dev 1 Each IH BID94 Cymbalta (Duloxetine Hcl) 60 Mg Capsule.dr 90 Mg PO DAILY Singulair Tablet (Montelukast Sodium) 10 Mg Tablet 10 Mg PO HS Allergies Allergies: Coded Allergies: Penicillins (Verified Allergy, Severe, itching, dry mouth, tongue swells, 01/24/18) Sulfa (Sulfonamide Antibiotics) (Verified Allergy, Intermediate, ITCHING DRY MOUTH, hives/swelling, 12/16/15) fentanyl (Verified Allergy, Intermediate, 12/16/15) hydromorphone HCl (Verified Allergy, Intermediate, MORPHINE OK, 12/16/15) methylprednisolone (Verified Allergy, Intermediate, RED MAN SYNDROME, 10/11/16) prednisone (Verified Allergy, Intermediate, RED MED SYNDROME, 10/11/16) gluten (Verified Allergy, Mild, bloating, 04/18/17) "tummy bloats" I S O L A T I O N *CONTACT* (Verified Allergy, Unknown, 02/04/17) mrsa oxycodone HCl (Verified Adverse Reaction, Intermediate, "i FEEL LIKE I HAVE WORMS IN ME", 12/16/15) 06/28 TOLERATING HYDROCODONE/APAP ROS General: YES: Fatigue; No: Chills, Night Sweats, Malaise, Appetite, Other PSYCHOLOGICAL ROS: No: Anxiety, Behavioral Disorder, Concentration difficultie, Decreased libido, Depression, Disorientation, Hallucinations, Hostility, Irritablity, Memory difficulties, Mood Swings, Obsessive thoughts, Physical abuse, Sexual abuse, Sleep disturbances, Suicidal ideation, Other Eyes: No Blurry vision, No Decreased vision, No Double vision, No Dry eyes, No Excessive tearing, No Eye Pain, No Itchy Eyes, No Loss of vision, No Photophobia, No Scotomata, No Uses contacts, No Uses glasses, No Other HEENT: No: Heacaches, Visual Changes, Hearing change, Nasal congestion, Nasal discharge, Oral lesions, Sinus pain, Sore Throat, Epistaxis, Sneezing, Snoring, Tinnitus, Vertigo, Vocal changes, Other Respiratory: YES: Shortness of breath, SOB with excertion, Tachypnea; No: Cough, Hemoptysis, Orthopnea, Pleuritic Pain, Sputum Changes, Stridor, Wheezing, Other Cardiovascular: yes Chest Pain Gastrointestinal: No Nausea, No Vomiting, No Abdominal Pain, No Diarrhea, No Constipation, No Melena, No Hematochezia, No Other Genitourinary: No Dysuria, No Frequency, No Incontinence, No Hematuria, No Retention, No Discharge, No Urgency, No Pain, No Flank Pain, No Other, No , No , No , No , No , No , No Musculoskeletal: Yes Joint Pain (left knee), Yes Joint Stiffness; No Gait Disturbance, No Joint Swelling, No Muscle Pain, No Muscular Weakness, No Pain In:, No Swelling In:, No Other Neurological: No Behavorial Changes, No Bowel/Bladder ControlChng, No Confusion, No Dizziness, No Gait Disturbance, No Headaches, No Impaired Coord/balance, No Memory Loss, No Numbness/Tingling, No Seizures, No Speech Problems, No Tremors, No Visual Changes, No Weakness, No Other Physical Exam General: Oriented X3, No acute distress, mild distress HEENT: PERRLA, Mucous membr. moist/pink Lungs: Clear to auscultation, Normal air movement Heart: S1S2, no murmurs Abdomen: Normal bowel sounds, Soft Extremities: No cyanosis, Normal pulses Skin: No rashes, No significant lesion Neuro: Normal tone, Sensation intact Psych/Mental Status: Mood NL Vitals Vitals Vital Signs Date Time Temp Pulse Resp B/P (MAP) Pulse Ox O2 Delivery O2 Flow Rate FiO2 01/30/20 07:30 98 Room Air 01/30/20 07:00 98.1 90 18 182/77 (112) 98.1 Labs Labs Laboratory Tests Test 01/29/20 20:28 01/30/20 03:00 01/30/20 05:00 01/30/20 07:52 White Blood Count 10.2 x10^3/uL (4.0-11.0) 8.3 x10^3/uL (4.0-11.0) Red Blood Count 4.46 x10^6/uL (3.50-5.40) 4.20 x10^6/uL (3.50-5.40) Hemoglobin 13.2 g/dL (12.0-15.5) 12.1 g/dL (12.0-15.5) Hematocrit 38.6 % (36.0-47.0) 36.1 % (36.0-47.0) Mean Corpuscular Volume 86 fL (79-100) 86 fL (79-100) Mean Corpuscular Hemoglobin 30 pg (25-35) 29 pg (25-35) Mean Corpuscular Hemoglobin Concent 34 g/dL (31-37) 34 g/dL (31-37) Red Cell Distribution Width 14.4 % (11.5-14.5) 14.2 % (11.5-14.5) Platelet Count 330 x10^3/uL (140-400) 276 x10^3/uL (140-400) Neutrophils (%) (Auto) 51 % (31-73) Lymphocytes (%) (Auto) 42 % (24-48) Monocytes (%) (Auto) 5 % (0-9) Eosinophils (%) (Auto) 3 % (0-3) Basophils (%) (Auto) 0 % (0-3) Neutrophils # (Auto) 5.1 x10^3/uL (1.8-7.7) Lymphocytes # (Auto) 4.2 x10^3/uL (1.0-4.8) Monocytes # (Auto) 0.5 x10^3/uL (0.0-1.1) Eosinophils # (Auto) 0.3 x10^3/uL (0.0-0.7) Basophils # (Auto) 0.0 x10^3/uL (0.0-0.2) Sodium Level 137 mmol/L (136-145) Potassium Level 3.5 mmol/L (3.5-5.1) Chloride Level 100 mmol/L (98-107) Carbon Dioxide Level 26 mmol/L (21-32) Anion Gap 11 (6-14) Blood Urea Nitrogen 17 mg/dL (7-20) Creatinine 0.9 mg/dL (0.6-1.0) Estimated GFR (Cockcroft-Gault) 62.3 BUN/Creatinine Ratio 19 (6-20) Glucose Level 207 mg/dL (70-99) Calcium Level 8.7 mg/dL (8.5-10.1) Total Bilirubin 0.2 mg/dL (0.2-1.0) Aspartate Amino Transf (AST/SGOT) 30 U/L (15-37) Alanine Aminotransferase (ALT/SGPT) 41 U/L (14-59) Alkaline Phosphatase 124 U/L (46-116) Troponin I Quantitative 0.093 ng/mL (0.000-0.055) 0.127 ng/mL (0.000-0.055) 0.130 ng/mL (0.000-0.055) AU-Zhr-S-Type Natriuretic Peptide 176 pg/mL (0-124) Total Protein 6.7 g/dL (6.4-8.2) Albumin 3.0 g/dL (3.4-5.0) Albumin/Globulin Ratio 0.8 (1.0-1.7) Heparin Anti-Xa Act, Unfractionated 0.19 IU/mL (0.30-0.70) Glucose (Fingerstick) 137 mg/dL (70-99) Laboratory Tests Test 01/29/20 20:28 01/30/20 03:00 01/30/20 05:00 01/30/20 07:52 White Blood Count 10.2 x10^3/uL (4.0-11.0) 8.3 x10^3/uL (4.0-11.0) Red Blood Count 4.46 x10^6/uL (3.50-5.40) 4.20 x10^6/uL (3.50-5.40) Hemoglobin 13.2 g/dL (12.0-15.5) 12.1 g/dL (12.0-15.5) Hematocrit 38.6 % (36.0-47.0) 36.1 % (36.0-47.0) Mean Corpuscular Volume 86 fL (79-100) 86 fL (79-100) Mean Corpuscular Hemoglobin 30 pg (25-35) 29 pg (25-35) Mean Corpuscular Hemoglobin Concent 34 g/dL (31-37) 34 g/dL (31-37) Red Cell Distribution Width 14.4 % (11.5-14.5) 14.2 % (11.5-14.5) Platelet Count 330 x10^3/uL (140-400) 276 x10^3/uL (140-400) Neutrophils (%) (Auto) 51 % (31-73) Lymphocytes (%) (Auto) 42 % (24-48) Monocytes (%) (Auto) 5 % (0-9) Eosinophils (%) (Auto) 3 % (0-3) Basophils (%) (Auto) 0 % (0-3) Neutrophils # (Auto) 5.1 x10^3/uL (1.8-7.7) Lymphocytes # (Auto) 4.2 x10^3/uL (1.0-4.8) Monocytes # (Auto) 0.5 x10^3/uL (0.0-1.1) Eosinophils # (Auto) 0.3 x10^3/uL (0.0-0.7) Basophils # (Auto) 0.0 x10^3/uL (0.0-0.2) Sodium Level 137 mmol/L (136-145) Potassium Level 3.5 mmol/L (3.5-5.1) Chloride Level 100 mmol/L (98-107) Carbon Dioxide Level 26 mmol/L (21-32) Anion Gap 11 (6-14) Blood Urea Nitrogen 17 mg/dL (7-20) Creatinine 0.9 mg/dL (0.6-1.0) Estimated GFR (Cockcroft-Gault) 62.3 BUN/Creatinine Ratio 19 (6-20) Glucose Level 207 mg/dL (70-99) Calcium Level 8.7 mg/dL (8.5-10.1) Total Bilirubin 0.2 mg/dL (0.2-1.0) Aspartate Amino Transf (AST/SGOT) 30 U/L (15-37) Alanine Aminotransferase (ALT/SGPT) 41 U/L (14-59) Alkaline Phosphatase 124 U/L (46-116) Troponin I Quantitative 0.093 ng/mL (0.000-0.055) 0.127 ng/mL (0.000-0.055) 0.130 ng/mL (0.000-0.055) PB-Aga-O-Type Natriuretic Peptide 176 pg/mL (0-124) Total Protein 6.7 g/dL (6.4-8.2) Albumin 3.0 g/dL (3.4-5.0) Albumin/Globulin Ratio 0.8 (1.0-1.7) Heparin Anti-Xa Act, Unfractionated 0.19 IU/mL (0.30-0.70) Glucose (Fingerstick) 137 mg/dL (70-99) VTE Prophylaxis Ordered VTE Prophylaxis Devices: Yes VTE Pharmacological Prophylaxi: Yes Assessment/Plan Assessment/Plan Diabetes, II; uncontrolled - will place on insulin, half dose while NPO, plus sliding scale H/o PA-flutter - cont BB, will do NPO with sips with meds Chronic diastolic CHF - appears euvolemic currently, will monitor Hyperlipidemia - cont statin when taking PO H/o PE on chronic OAC with warfarin. INR 2.1. Likely she had a recent PE as well. Will place on lovenox 100mg BID while NPO JESI - not on CPAP Anxiety with depression - cont cymbalta when taking PO Mild/moderate protein calorie malnutrition - will have d/w fisher crab about ADA diet when taking PO Hyponatremia - likely hypovolemic, will give gentle IVF as she has h/o CHF Hypomagnesemia - likely from GI losses, will replace IV Hepatic steatosis on past imaging, possible hepatic hemangioma on CT this time. H/o PE on Coumadin. inr=1.5, IS subtherapeutic will need to dose 5 mg now Takes hydrocodone TID-QID for chronic pain issues. No NSAIDs or ASA (though listed on summary). H/o PA-flutter Chronic diastolic CHF Hyperlipidemia JESI Hyponatremia Possible hepatic hemangioma, hepatic steatosis - LFTs WNL Due for outpt screening colonoscopy soon pt is poor surgical candidate subtherapeutic INR 5/21 6 MG COUMADIN NOW X 1 Justicifation of Admission Dx: Justifications for Admission: Justification of Admission Dx: Yes (unstable angina) EVELIO CARDOZA MD Jan 30, 2020 08:59
[2020-01-30] MEDS ORDERED: LISINOPRIL 20 MG TABLET PO SCH (09:00)
[2020-01-30] MEDS ORDERED: ALBUTEROL SULFATE 2.5 MG/3 ML NEBU. NEB PRN (09:00)
[2020-01-30] MEDS ORDERED: METOPROLOL SUCC 24HR ER 25 MG TAB.ER.24H. PO SCH (09:00)
[2020-01-30] MEDS: INSULIN LISPRO 300 UNITS/3 ML VIAL. SQ SCH ×3 (09:00→17:00)
[2020-01-30] MEDS ORDERED: SALIVA STIMULANT AGENT 44ML SPRAY BOTTLE. PO PRN (09:00)
[2020-01-30] MEDS ORDERED: NON FORMULARY ITEM (Tiotropium Bromide (Spiriva) 18 MCG) IH SCH (09:00)
[2020-01-30 09:30] LABS: PROTHROMBIN TIME PATIENT 16.4 SEC (11.7-14.0)
--- NOTE | 2020-01-30 09:42 | NUR ---
Pharmacy Warfarin Dosing Note S:Pharmacy consulted to assist with anticoagulation therapy with target INR: 2 -3 O:ELY CARDOZA is a 69 year old F with DVT/PE LABS: Last INR: 1.4 Last HGB: 12.1 Last HCT: 36.1 Last PLT: 276 Previous Regimen: 10MG DAILY FROM HOME MED LIST Vitamin K given: N Drug Interaction Changes: Same Interacting Drug Ongoing Drug Interactions: Duloxetine A:INR of 1.4 is below desired range. Target range for this patient is: 2 -3 P: Warfarin dose: 10 mg Today at 1600 Bridge Therapy: Heparin Therapeutic Next INR due tomorrow Pharmacy anticoagulation service will continue to follow. Cramen pAonte RPH, 01/30/20 [id number]
[2020-01-30] MEDS: DULoxetine HCL 30 MG CAPSULE.DR PO SCH (09:52)
[2020-01-30] MEDS: LIDOCAINE (700MG/PATCH) PATCH. TD SCH (09:52)
[2020-01-30] MEDS: OMEGA-3 FATTY ACIDS/FISH OIL 1,000 MG CAPSULE. PO SCH (09:52)
[2020-01-30] MEDS: LUBIPROSTONE 24 MCG CAPSULE PO SCH ×2 (09:53→16:05)
[2020-01-30] MEDS: METOPROLOL SUCC 24HR ER 25 MG TAB.ER.24H. PO SCH (09:53)
[2020-01-30] MEDS: ASPIRIN ENTERIC COATED 81 MG TABLET.DR. PO SCH (09:53)
[2020-01-30] MEDS: INSULIN GLARGINE SYRINGE. SQ SCH ×2 (10:01→21:04)
[2020-01-30 10:43] VITALS: BP_SYST 127; BP_SYST 162; BP_DIAS 69; BP_DIAS 74
[2020-01-30] MEDS: BUDESONIDE 0.5 MG/2 ML NEBU. NEB SCH ×2 (11:41→19:53)
[2020-01-30] MEDS: IPRATRPIUM/ALBUTEROL 0.5/2.5MG 3 ML NEBU. NEB SCH ×3 (11:41→19:49)
[2020-01-30 14:42] VITALS: BP 133/63
[2020-01-30] MEDS ORDERED: WARFARIN 5 MG TABLET. PO ONE (16:00)
[2020-01-30] MEDS: HYDROcodone/APAP 5/325MG 1 TAB TABLET PO PRN (18:16)
[2020-01-30 18:45] VITALS: BP 135/61
[2020-01-30] MEDS ORDERED: EZETIMIBE PO SCH (21:00)
[2020-01-30] MEDS ORDERED: LISINOPRIL 20 MG TABLET PO ONE (21:00)
[2020-01-30] MEDS ORDERED: SIMVASTATIN PO SCH (21:00)
[2020-01-30] MEDS ORDERED: MONTELUKAST SODIUM 10 MG TABLET. PO SCH (21:00)
[2020-01-30] MEDS ORDERED: PATCH REMOVAL. MC SCH (21:00)
[2020-01-30] MEDS ORDERED: SIMVASTATIN 10 MG TABLET PO SCH (21:00)
[2020-01-30] MEDS ORDERED: EZETIMIBE 10 MG TABLET. PO SCH (21:00)
[2020-01-30 23:05] VITALS: BP 149/65
--- NOTE | 2020-01-31 00:20 | CONS ---
DATE OF CONSULTATION: 01/30/2020 REASON FOR CONSULTATION: Elevated troponin. HISTORY OF PRESENT ILLNESS: The patient is a 69-year-old woman with past medical history as noted below, who presents to the hospital in the setting of chest pain and elevated troponin. Unfortunately, she does not appear to be compliant with her medications as evidenced by her and subtherapeutic INR and presented with hypertensive emergency with systolic blood pressure above 220. Her troponin has been minimally elevated in this setting. She currently denies any chest pain. She has had chronic pain issues. Prior evaluation has been unremarkable. From a cardiac perspective, she underwent a cardiac catheterization in 09/2019, and at that time, she had no significant coronary artery disease. She also underwent an echocardiogram at that time, which revealed normal LV function. PAST MEDICAL HISTORY: 1. Hypertension. 2. Dyslipidemia. 3. Paroxysmal atrial fibrillation with flutter. 4. Asthma. 5. GERD. 6. Diabetes. 7. History of possible pulmonary embolus, on warfarin therapy. PAST SURGICAL HISTORY: Hernia repair and hysterectomy. FAMILY HISTORY: Notable for diabetes and heart disease and hypertension. SOCIAL HISTORY: No alcohol, tobacco, or illicit drug use. She lives with her family. CURRENT CARDIOVASCULAR MEDICATIONS: As follows: 1. Lisinopril 40 mg daily. 2. Zetia 10 mg daily. 3. Simvastatin 10 mg daily. 4. Metoprolol XL 50 mg daily. 5. Warfarin as directed. 6. Aspirin 81 mg daily. REVIEW OF SYSTEMS: Negative for 10 out of 14 systems reviewed, unless otherwise mentioned above in HPI. ALLERGIES: Multiple, please see medication record. PHYSICAL EXAMINATION: VITAL SIGNS: Afebrile, pulse 84, blood pressure 131/61, respiratory rate 18, oxygen saturation 95% on room air. GENERAL: She is alert and oriented, in no acute distress. HEAD AND NECK: Unremarkable. CARDIAC: Regular rate and rhythm without murmurs, rubs, or gallops. LUNGS: Clear to auscultation. ABDOMEN: Obese, protuberant, and nontender. EXTREMITIES: No clubbing, cyanosis, or edema. NEUROLOGIC: No focal deficits. MUSCULOSKELETAL: No trauma. DIAGNOSTIC STUDIES: Hemoglobin and platelets are within normal limits. Troponin is minimally elevated at 0.130. EKG is unremarkable. CT of the chest is unremarkable. IMPRESSION: 1. Hypertensive emergency. 2. Dyslipidemia. 3. Obesity. 4. Prior history of pulmonary embolism, currently without any evidence of pulmonary embolus on CT scan of the chest. RECOMMENDATIONS: At this present time, we would continue current medical therapy for her hypertension. I suspect that this is mostly related to noncompliance. No further cardiovascular testing necessary at this time. Please call with any further questions. ALEXIS DIAMOND MD DR: YARY/alyce JOB#: [id number] / [id number]
[2020-01-31] MEDS: HYDROcodone/APAP 5/325MG 1 TAB TABLET PO PRN (00:24)
[2020-01-31 03:30] VITALS: BP 143/67
[2020-01-31 05:19] LABS: BASO # 0.1 x10^3/uL (0.0-0.2); BASO % 1 % (0-3); EOS # 0.3 x10^3/uL (0.0-0.7); EOS % 4 % (0-3); HEMATOCRIT 36.9 % (36.0-47.0); HEMOGLOBIN 12.3 g/dL (12.0-15.5); LYMPH # 2.8 x10^3/uL (1.0-4.8); LYMPH % 39 % (24-48); MEAN CORPUSCULAR HEMOGLOBIN 29 pg (25-35); MEAN CORPUSCULAR HGB CONC 33 g/dL (31-37); MEAN CORPUSCULAR VOLUME 87 fL (79-100); MONO # 0.4 x10^3/uL (0.0-1.1); MONO % 6 % (0-9); NEUT # 3.6 x10^3/uL (1.8-7.7); NEUT % 50 % (31-73); PLATELET COUNT 289 x10^3/uL (140-400); RED BLOOD COUNT 4.25 x10^6/uL (3.50-5.40); RED CELL DISTRIBUTION WIDTH 14.7 % (11.5-14.5); WHITE BLOOD COUNT 7.1 x10^3/uL (4.0-11.0)
[2020-01-31 05:36] LABS: PROTHROMBIN TIME PATIENT 17.1 SEC (11.7-14.0)
[2020-01-31 05:41] LABS: ALBUMIN 2.8 g/dL (3.4-5.0); CALCIUM 8.6 mg/dL (8.5-10.1); CREATININE 0.8 mg/dL (0.6-1.0); GFR 71.3; POTASSIUM 4.4 mmol/L (3.5-5.1); TOTAL BILIRUBIN 0.2 mg/dL (0.2-1.0); TOTAL PROTEIN 5.7 g/dL (6.4-8.2)
[2020-01-31 07:00] VITALS: BP 155/67
[2020-01-31] MEDS: BUDESONIDE 0.5 MG/2 ML NEBU. NEB SCH (07:16)
[2020-01-31] MEDS: IPRATRPIUM/ALBUTEROL 0.5/2.5MG 3 ML NEBU. NEB SCH ×2 (07:17→11:19)
[2020-01-31] MEDS: INSULIN LISPRO 300 UNITS/3 ML VIAL. SQ SCH ×2 (08:00→12:00)
[2020-01-31] MEDS: OMEGA-3 FATTY ACIDS/FISH OIL 1,000 MG CAPSULE. PO SCH (08:38)
[2020-01-31] MEDS: METOPROLOL SUCC 24HR ER 25 MG TAB.ER.24H. PO SCH (08:38)
[2020-01-31] MEDS: LUBIPROSTONE 24 MCG CAPSULE PO SCH (08:38)
[2020-01-31] MEDS: DULoxetine HCL 30 MG CAPSULE.DR PO SCH (08:39)
[2020-01-31] MEDS: ASPIRIN ENTERIC COATED 81 MG TABLET.DR. PO SCH (08:39)
[2020-01-31] MEDS: LIDOCAINE (700MG/PATCH) PATCH. TD SCH (08:41)
[2020-01-31] MEDS ORDERED: LISINOPRIL 20 MG TABLET PO SCH (09:00)
[2020-01-31] MEDS: INSULIN GLARGINE SYRINGE. SQ SCH (09:27)
--- NOTE | 2020-01-31 10:17 | PDOC ---
CARDIOLOGY PROGRESS NOTE SUBJECTIVE: No acute events overnight. Denies any chest pain. She is currently on oxygen therapy but normally is not on at home. Likely has untreated sleep apnea She has been eating and drinking well. She is been ambulating okay. Blood p ressures overnight have been well controlled OBJECTIVE: Vital Signs/I&O: Vital Signs Date Time Temp Pulse Resp B/P (MAP) Pulse Ox O2 Delivery O2 Flow Rate FiO2 01/31/20 08:39 86 155/67 01/31/20 07:17 96 Nasal Cannula 2.0 01/31/20 07:00 97.8 18 97.8 I & O 01/30/20 01/30/20 01/31/20 15:00 23:00 07:00 Intake Total 200 ml 700 ml 900 ml Output Total 1260 ml 600 ml 1725 ml Balance -1060 ml 100 ml -825 ml Objective: The patient appeared well nourished and normally developed. Head exam is unremarkable. No scleral icterus or corneal arcus noted. Neck is w ithout jugular venous distension, thyromegaly, or carotid bruits. Carotid upstrokes are brisk bilaterally. Lungs are clear to auscultation and percussion. Cardiac exam reveals the PMI to be normally sized and situated. Rhythm is regular. First and second heart sounds normal. No murmurs, rubs or gallops. Abdominal exam reveals normal bowel sounds, no masses, no organomegaly and no aortic enlargement. Extremities are nonedematous and both femoral and pedal pulses are normal. Msk: No traumua Neuro: No focal deficits CURRENT MEDICATIONS: Current Medications Medications (Trade) Dose Ordered Sig/Irish Route PRN Reason Start Time Stop Time Status Last Admin Dose Admin Albuterol/ Ipratropium (Duoneb) 3 ml RTQID NEB 01/30/20 12:00 01/31/20 07:17 Montelukast Sodium (Singulair) 10 mg HS PO 01/30/20 21:00 01/30/20 21:02 Simvastatin (Zocor) 10 mg QHS PO 01/30/20 21:00 01/30/20 21:01 EZETIMIBE (Zetia) 10 mg QHS PO 01/30/20 21:00 01/30/20 21:01 Warfarin Sodium (Coumadin) 10 mg 1X WARF ONCE PO 01/30/20 16:00 01/30/20 16:01 DC 01/30/20 16:03 Potassium Chloride/Dextrose/ Sod Cl 1,000 ml @ 100 mls/hr Q10H ONCE IV 01/30/20 10:30 01/30/20 14:25 DC 01/30/20 10:31 Acetaminophen/ Hydrocodone Bitart (Lortab 5/325) 1 tab PRN Q4HRS PRN PO PAIN 01/30/20 18:15 01/31/20 00:24 Lisinopril (Prinivil) 40 mg DAILY PO 01/31/20 09:00 01/31/20 08:39 Lisinopril (Prinivil) 20 mg 1X ONCE PO 01/30/20 21:00 01/30/20 21:01 DC 01/30/20 21:02 DIAGNOSTIC TESTING: Labs reviewed. Prior echo and CATh reviewed Labs: Laboratory Tests 01/31/20 05:00 Laboratory Tests Test 01/30/20 11:39 01/30/20 13:33 01/30/20 17:01 01/30/20 20:59 Glucose (Fingerstick) 162 mg/dL (70-99) H 146 mg/dL (70-99) H 217 mg/dL (70-99) H Heparin Anti-Xa Act, Unfractionated 0.52 IU/mL (0.30-0.70) Test 01/31/20 05:00 01/31/20 07:37 White Blood Count 7.1 x10^3/uL (4.0-11.0) Red Blood Count 4.25 x10^6/uL (3.50-5.40) Hemoglobin 12.3 g/dL (12.0-15.5) Hematocrit 36.9 % (36.0-47.0) Mean Corpuscular Volume 87 fL (79-100) Mean Corpuscular Hemoglobin 29 pg (25-35) Mean Corpuscular Hemoglobin Concent 33 g/dL (31-37) Red Cell Distribution Width 14.7 % (11.5-14.5) H Platelet Count 289 x10^3/uL (140-400) Neutrophils (%) (Auto) 50 % (31-73) Lymphocytes (%) (Auto) 39 % (24-48) Monocytes (%) (Auto) 6 % (0-9) Eosinophils (%) (Auto) 4 % (0-3) H Basophils (%) (Auto) 1 % (0-3) Neutrophils # (Auto) 3.6 x10^3/uL (1.8-7.7) Lymphocytes # (Auto) 2.8 x10^3/uL (1.0-4.8) Monocytes # (Auto) 0.4 x10^3/uL (0.0-1.1) Eosinophils # (Auto) 0.3 x10^3/uL (0.0-0.7) Basophils # (Auto) 0.1 x10^3/uL (0.0-0.2) Prothrombin Time 17.1 SEC (11.7-14.0) H Prothromb Time International Ratio 1.4 (0.8-1.1) H Sodium Level 139 mmol/L (136-145) Potassium Level 4.4 mmol/L (3.5-5.1) Chloride Level 101 mmol/L (98-107) Carbon Dioxide Level 32 mmol/L (21-32) Anion Gap 6 (6-14) Blood Urea Nitrogen 15 mg/dL (7-20) Creatinine 0.8 mg/dL (0.6-1.0) Estimated GFR (Cockcroft-Gault) 71.3 BUN/Creatinine Ratio 19 (6-20) Glucose Level 101 mg/dL (70-99) H Calcium Level 8.6 mg/dL (8.5-10.1) Total Bilirubin 0.2 mg/dL (0.2-1.0) Aspartate Amino Transf (AST/SGOT) 39 U/L (15-37) H Alkaline Phosphatase 101 U/L (46-116) Total Protein 5.7 g/dL (6.4-8.2) L Albumin 2.8 g/dL (3.4-5.0) L Albumin/Globulin Ratio 1.0 (1.0-1.7) Glucose (Fingerstick) 105 mg/dL (70-99) H ASSESSMENT: 1. Hypertensive emergency 2. Morbid obesity 3. Atypical chest pain 4. Remote history of pulmonary embolus, current CTA unremarkable, on warfarin therapy PLAN: 1. From a cardiac perspective no further testing is necessary. 2. Continue her current antihypertensive medications. No coronary disease on her recent cardiac catheterization 3. Recommend weight loss and continue treatment of her sleep apnea Okay to discharge from cardiac perspective. Please call with any further ques tions. Justicifation of Admission Dx: Justifications for Admission: Justification of Admission Dx: Yes (unstable angina) ALEXIS DIAMOND MD Jan 31, 2020 10:17
[2020-01-31 11:02] VITALS: BP 117/56
--- NOTE | 2020-01-31 11:32 | NUR ---
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 Target range for this patient is: 2 -3 P: Warfarin dose: 10 mg Today at 1600 Bridge Therapy: Heparin Therapeutic Next INR due IN AM Pharmacy anticoagulation service will continue to follow. LALO JANG [facility], 01/31/20 [id number]
[2020-01-31] MEDS ORDERED: LISI-130 PO (12:04)
--- NOTE | 2020-01-31 12:06 | PDOC3 ---
Discharge Summary Visit Information Date of Admission: Jan 30, 2020 Date of Discharge: Jan 31, 2020 Final Diagnosis chest pain, angina, htn htn emergency morbid obesity, BMI 46 Hx Pulm embolism Problems Medical Problems: (1) Asthma exacerbation Status: Acute (2) Atypical chest pain Status: Acute (3) Elevated troponin Status: Acute (4) Hyperglycemia Status: Acute Brief Hospital Course Allergies Allergies Coded Allergies Type Severity Reaction Last Updated Verified Penicillins Allergy Severe itching, dry mouth, tongue swells 01/24/18 Yes Sulfa (Sulfonamide Antibiotics) Allergy Intermediate ITCHING DRY MOUTH, hives/swelling 12/16/15 Yes fentanyl Allergy Intermediate 12/16/15 Yes hydromorphone HCl Allergy Intermediate MORPHINE OK 12/16/15 Yes methylprednisolone Allergy Intermediate RED MAN SYNDROME 10/11/16 Yes prednisone Allergy Intermediate RED MED SYNDROME 10/11/16 Yes gluten Allergy Mild bloating 04/18/17 Yes I S O L A T I O N *CONTACT* Allergy Unknown 02/04/17 Yes oxycodone HCl Adverse Reaction Intermediate "i FEEL LIKE I HAVE WORMS IN ME" 12/16/15 Yes Vital Signs Vital Signs Date Time Temp Pulse Resp B/P (MAP) Pulse Ox O2 Delivery O2 Flow Rate FiO2 01/31/20 11:19 87 Room Air 01/31/20 11:02 97.7 77 18 117/56 (76) 97.7 01/31/20 08:00 2.0 Lab Results Laboratory Tests Test 01/29/20 20:28 01/30/20 03:00 01/30/20 05:00 01/30/20 07:52 White Blood Count 10.2 x10^3/uL (4.0-11.0) 8.3 x10^3/uL (4.0-11.0) Red Blood Count 4.46 x10^6/uL (3.50-5.40) 4.20 x10^6/uL (3.50-5.40) Hemoglobin 13.2 g/dL (12.0-15.5) 12.1 g/dL (12.0-15.5) Hematocrit 38.6 % (36.0-47.0) 36.1 % (36.0-47.0) Mean Corpuscular Volume 86 fL (79-100) 86 fL (79-100) Mean Corpuscular Hemoglobin 30 pg (25-35) 29 pg (25-35) Mean Corpuscular Hemoglobin Concent 34 g/dL (31-37) 34 g/dL (31-37) Red Cell Distribution Width 14.4 % (11.5-14.5) 14.2 % (11.5-14.5) Platelet Count 330 x10^3/uL (140-400) 276 x10^3/uL (140-400) Neutrophils (%) (Auto) 51 % (31-73) Lymphocytes (%) (Auto) 42 % (24-48) Monocytes (%) (Auto) 5 % (0-9) Eosinophils (%) (Auto) 3 % (0-3) Basophils (%) (Auto) 0 % (0-3) Neutrophils # (Auto) 5.1 x10^3/uL (1.8-7.7) Lymphocytes # (Auto) 4.2 x10^3/uL (1.0-4.8) Monocytes # (Auto) 0.5 x10^3/uL (0.0-1.1) Eosinophils # (Auto) 0.3 x10^3/uL (0.0-0.7) Basophils # (Auto) 0.0 x10^3/uL (0.0-0.2) Sodium Level 137 mmol/L (136-145) Potassium Level 3.5 mmol/L (3.5-5.1) Chloride Level 100 mmol/L (98-107) Carbon Dioxide Level 26 mmol/L (21-32) Anion Gap 11 (6-14) Blood Urea Nitrogen 17 mg/dL (7-20) Creatinine 0.9 mg/dL (0.6-1.0) Estimated GFR (Cockcroft-Gault) 62.3 BUN/Creatinine Ratio 19 (6-20) Glucose Level 207 mg/dL (70-99) Calcium Level 8.7 mg/dL (8.5-10.1) Total Bilirubin 0.2 mg/dL (0.2-1.0) Aspartate Amino Transf (AST/SGOT) 30 U/L (15-37) Alanine Aminotransferase (ALT/SGPT) 41 U/L (14-59) Alkaline Phosphatase 124 U/L (46-116) Troponin I Quantitative 0.093 ng/mL (0.000-0.055) 0.127 ng/mL (0.000-0.055) 0.130 ng/mL (0.000-0.055) LG-Stl-R-Type Natriuretic Peptide 176 pg/mL (0-124) Total Protein 6.7 g/dL (6.4-8.2) Albumin 3.0 g/dL (3.4-5.0) Albumin/Globulin Ratio 0.8 (1.0-1.7) Prothrombin Time 16.4 SEC (11.7-14.0) Prothromb Time International Ratio 1.4 (0.8-1.1) Heparin Anti-Xa Act, Unfractionated 0.19 IU/mL (0.30-0.70) Glucose (Fingerstick) 137 mg/dL (70-99) Test 01/30/20 11:39 01/30/20 13:33 01/30/20 17:01 01/30/20 20:59 Glucose (Fingerstick) 162 mg/dL (70-99) 146 mg/dL (70-99) 217 mg/dL (70-99) Heparin Anti-Xa Act, Unfractionated 0.52 IU/mL (0.30-0.70) Test 01/31/20 05:00 01/31/20 07:37 White Blood Count 7.1 x10^3/uL (4.0-11.0) Red Blood Count 4.25 x10^6/uL (3.50-5.40) Hemoglobin 12.3 g/dL (12.0-15.5) Hematocrit 36.9 % (36.0-47.0) Mean Corpuscular Volume 87 fL (79-100) Mean Corpuscular Hemoglobin 29 pg (25-35) Mean Corpuscular Hemoglobin Concent 33 g/dL (31-37) Red Cell Distribution Width 14.7 % (11.5-14.5) Platelet Count 289 x10^3/uL (140-400) Neutrophils (%) (Auto) 50 % (31-73) Lymphocytes (%) (Auto) 39 % (24-48) Monocytes (%) (Auto) 6 % (0-9) Eosinophils (%) (Auto) 4 % (0-3) Basophils (%) (Auto) 1 % (0-3) Neutrophils # (Auto) 3.6 x10^3/uL (1.8-7.7) Lymphocytes # (Auto) 2.8 x10^3/uL (1.0-4.8) Monocytes # (Auto) 0.4 x10^3/uL (0.0-1.1) Eosinophils # (Auto) 0.3 x10^3/uL (0.0-0.7) Basophils # (Auto) 0.1 x10^3/uL (0.0-0.2) Prothrombin Time 17.1 SEC (11.7-14.0) Prothromb Time International Ratio 1.4 (0.8-1.1) Sodium Level 139 mmol/L (136-145) Potassium Level 4.4 mmol/L (3.5-5.1) Chloride Level 101 mmol/L (98-107) Carbon Dioxide Level 32 mmol/L (21-32) Anion Gap 6 (6-14) Blood Urea Nitrogen 15 mg/dL (7-20) Creatinine 0.8 mg/dL (0.6-1.0) Estimated GFR (Cockcroft-Gault) 71.3 BUN/Creatinine Ratio 19 (6-20) Glucose Level 101 mg/dL (70-99) Calcium Level 8.6 mg/dL (8.5-10.1) Total Bilirubin 0.2 mg/dL (0.2-1.0) Aspartate Amino Transf (AST/SGOT) 39 U/L (15-37) Alanine Aminotransferase (ALT/SGPT) 43 U/L (14-59) Alkaline Phosphatase 101 U/L (46-116) Total Protein 5.7 g/dL (6.4-8.2) Albumin 2.8 g/dL (3.4-5.0) Albumin/Globulin Ratio 1.0 (1.0-1.7) Glucose (Fingerstick) 105 mg/dL (70-99) Laboratory Tests Test 01/30/20 13:33 01/30/20 17:01 01/30/20 20:59 01/31/20 05:00 Heparin Anti-Xa Act, Unfractionated 0.52 IU/mL (0.30-0.70) Glucose (Fingerstick) 146 mg/dL (70-99) 217 mg/dL (70-99) White Blood Count 7.1 x10^3/uL (4.0-11.0) Red Blood Count 4.25 x10^6/uL (3.50-5.40) Hemoglobin 12.3 g/dL (12.0-15.5) Hematocrit 36.9 % (36.0-47.0) Mean Corpuscular Volume 87 fL (79-100) Mean Corpuscular Hemoglobin 29 pg (25-35) Mean Corpuscular Hemoglobin Concent 33 g/dL (31-37) Red Cell Distribution Width 14.7 % (11.5-14.5) Platelet Count 289 x10^3/uL (140-400) Neutrophils (%) (Auto) 50 % (31-73) Lymphocytes (%) (Auto) 39 % (24-48) Monocytes (%) (Auto) 6 % (0-9) Eosinophils (%) (Auto) 4 % (0-3) Basophils (%) (Auto) 1 % (0-3) Neutrophils # (Auto) 3.6 x10^3/uL (1.8-7.7) Lymphocytes # (Auto) 2.8 x10^3/uL (1.0-4.8) Monocytes # (Auto) 0.4 x10^3/uL (0.0-1.1) Eosinophils # (Auto) 0.3 x10^3/uL (0.0-0.7) Basophils # (Auto) 0.1 x10^3/uL (0.0-0.2) Prothrombin Time 17.1 SEC (11.7-14.0) Prothromb Time International Ratio 1.4 (0.8-1.1) Sodium Level 139 mmol/L (136-145) Potassium Level 4.4 mmol/L (3.5-5.1) Chloride Level 101 mmol/L (98-107) Carbon Dioxide Level 32 mmol/L (21-32) Anion Gap 6 (6-14) Blood Urea Nitrogen 15 mg/dL (7-20) Creatinine 0.8 mg/dL (0.6-1.0) Estimated GFR (Cockcroft-Gault) 71.3 BUN/Creatinine Ratio 19 (6-20) Glucose Level 101 mg/dL (70-99) Calcium Level 8.6 mg/dL (8.5-10.1) Total Bilirubin 0.2 mg/dL (0.2-1.0) Aspartate Amino Transf (AST/SGOT) 39 U/L (15-37) Alanine Aminotransferase (ALT/SGPT) 43 U/L (14-59) Alkaline Phosphatase 101 U/L (46-116) Total Protein 5.7 g/dL (6.4-8.2) Albumin 2.8 g/dL (3.4-5.0) Albumin/Globulin Ratio 1.0 (1.0-1.7) Test 01/31/20 07:37 Glucose (Fingerstick) 105 mg/dL (70-99) Brief Hospital Course Ms. Cardoza is a 69 old female, admt for chest pain and shortness of breath Discharge Information Condition at Discharge: Improved Follow Up: Weeks Disposition/Orders: D/C to Home Scheduled Aspirin (Aspirin Ec) 81 Mg Tablet., 81 MG PO DAILYWBKFT for antiplatelet for 30 Days, #30 Prescribed by: CHRISTI ARMSTRONG MD on 09/24/19 1235 Last Action: Continued on 01/30/20 0841 by EVELIO CARDOZA Duloxetine Hcl (Cymbalta) 60 Mg Capsule.dr, 90 MG PO DAILY, (Reported) Entered as Reported by: ALISHA WADE on 09/02/13 0841 Last Action: Converted on 01/30/20 0840 by EVELIO CARDOZA Ezetimibe/Simvastatin (Vytorin 10-10 Mg Tablet) 1 Each Tablet, 1 EACH PO HS, (Reported) Entered as Reported by: Sandra Flores on 06/21/14 0131 Last Action: Converted on 01/30/20 0841 by EVELIO CARDOZA Fluticasone/Salmeterol (Advair 250-50 Diskus) 1 Each Disk.w.dev, 1 EACH IH BID94, (Reported) Entered as Reported by: ALISHA WADE on 09/02/13 0904 Last Action: Converted on 01/30/20 0840 by EVELIO CARDOZA Insulin Glargine,Hum.rec.anlog (Lantus Solostar) 100 Unit/1 Ml Insuln.pen, 60 UNIT SQ BID for diabetes, #15 Ref 3 (Reported) Entered as Reported by: LUKE CISNEROS on 01/30/20 0742 Last Action: Converted on 01/30/20 0841 by EVELIO CARDOZA Insulin Lispro (Humalog) 100 Unit/1 Ml Cartridge, 20 UNIT SQ TID for diabetes, (Reported) Entered as Reported by: LUKE CISNEROS on 01/30/20 0742 Last Action: Converted on 01/30/20840 by EVELIO CARDOZA Ipratropium/Albuterol Sulfate (Duoneb 0.5-3(2.5) Mg/3 Ml) 3 Ml Ampul.neb, 3 ML NEB QID, #10 Prescribed by: RAMU DOUGLAS D.O. on 02/07/185 Last Action: Continued on 01/30/20840 by EVELIO CARDOZA Linaclotide (Linzess) 145 Mcg Capsule, 145 MCG PO DAILY07 for 30 Days, #30 Prescribed by: PAVITHRA ALVAREZ MD on 01/24/181707 Last Action: Converted on 01/30/20840 by EVELIO CARDOZA Lisinopril (Lisinopril) 20 Mg Tablet, 1 TAB PO DAILY, #30 Ref 5 (Reported) Entered as Reported by: TAMIKO RAMIRES on 01/22/18 0125 Last Action: Continued on 01/30/20840 by EVELIO CARDOZA Metoprolol Succinate (Metoprolol Succinate ( Xl )) 25 Mg Tab.er.24h, 1 TAB PO DAILY, #30 Ref 5 (Reported) Entered as Reported by: SALLIE LEMUS on 11/03/14 174 Last Action: Continued on 01/30/20840 by EVELIO CARDOZA Montelukast Sodium (Singulair Tablet ) 10 Mg Tablet, 10 MG PO HS, (Reported) Entered as Reported by: ESTER ALBERTS on 08/17/132208 Last Action: Continued on 01/30/20 0840 by EVELIO CARDOZA [place]-3 Fatty Acids/Fish Oil (Fish Oil 1,000 Mg Capsule) 1 Each Capsule, 1,000 MG PO DAILY for 30 Days, #30 Ref 11 Prescribed by: PAVITHRA ALVAREZ MD on 01/24/181707 Last Action: Continued on 01/30/20840 by EVELIO CARDOZA Ondansetron (Ondansetron Odt) 4 Mg Tab.rapdis, 1 TAB PO PRN Q6-8HRS, #16 Prescribed by: Janice Orlando APRN on 01/20/20 1432 Last Action: Continued on 01/30/20840 by EVELIO CARDOZA Tiotropium [place] (Spiriva) 18 Mcg Cap.w.dev, 18 MCG IH DAILY, (Reported) Entered as Reported by: ALISHA WADE on 09/02/13903 Last Action: Converted on 01/30/20839 by EVELIO CARDOZA Warfarin Sodium (Warfarin Sodium) 10 Mg Tablet, 10 MG PO DAILY for DVT, (Reported) Entered as Reported by: LASHAE PADILLA on 03/12/19317 Last Action: Continued on 01/30/20840 by EVELIO CARDOZA Scheduled PRN Bisacodyl (Bisacodyl) 10 Mg Supp.rect, 10 MG [place] PRN DAILY PRN for CONSTIPATION for 30 Days, #30 Prescribed by: TAE SWEENEY MD on 01/08/201158 Last Action: Continued on 01/30/20840 by EVELIO CARDOZA Dicyclomine Hcl (Dicyclomine Hcl) 10 Mg Capsule, 10 MG PO PRN QID PRN for abd pain for 30 Days, #100 Prescribed by: TAE SWEENEY MD on 01/08/201158 Last Action: Continued on 01/30/20840 by EVELIO CARDOZA Levalbuterol Tartrate (Xopenex Hfa) 15 Gm Hfa.aer.ad, 15 GM IH PRN BID PRN for SHORTNESS OF BREATH, (Reported) Entered as Reported by: ALISHA WADE on 09/02/13904 Last Action: Converted on 01/30/20840 by EVELIO CARDOZA Lorazepam (Ativan) 0.5 Mg Tablet, 0.5 MG PO PRN Q8HRS PRN for ANXIETY / A GITATION for 30 Days Prescribed by: NIKO GIBBONS on 11/27/18826 Last Action: Continued on 01/30/20840 by EVELIO CARDOZA Ondansetron (Ondansetron Odt) 4 Mg Tab.rapdis, 1 TAB PO PRN Q6-8HRS PRN for NAUSEA, #16 Prescribed by: CHRISTI VILLAGRAN D.O. on 01/03/19 0515 Last Action: Reviewed on 01/30/20 07 by LUKE CISNEROS Polyethylene Glycol 3350 (Polyethylene Glycol 3350) 17 Gm Powd.pack, 17 GM PO PRN DAILY PRN for CONSTIPATION for 30 Days, #30 Prescribed by: TAE SWEENEY MD on 01/08/20 1159 Last Action: Continued on 01/30/20 0841 by EVELIO CARDOZA Justicifation of Admission Dx: Justifications for Admission: Justification of Admission Dx: Yes (unstable angina) EVELIO CARDOZA MD Jan 31, 2020 12:06
--- NOTE | 2020-01-31 13:22 | NUR ---
PATIENT DISCHARGED TO HOME. DISCHARGE INSTRUCTIONS GIVEN. PIV AND HEART MONITOR REMOVED. ESCORTED PATIENT OFF UNIT INTO A PRIVATE VEHICLE.
[2020-01-31] MEDS ORDERED: WARFARIN 5 MG TABLET. PO ONE (16:00)
--- NOTE | 2020-02-01 06:14 | EKG ---
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
[2020-02-02 00:08] LABS: HEMOGLOBIN A1C 9.5 % (4.8-5.6)
== END 2020-01-31 13:28 | disposition home or self-care (01) | DRG 305 ==
LOC: ER 20:08 → 2 SOUTH 23:38
PROVIDERS: ADMIT Internal Medicine; ATTEND Internal Medicine
DX: I16.1 Hypertensive emergency (principal); J45.901 Unspecified asthma with (acute) exacerbation; I25.110 Atherosclerotic heart disease of native coronary artery with unstable angina pectoris; I50.32 Chronic diastolic (congestive) heart failure; E44.0 Moderate protein-calorie malnutrition; Z68.42 Body mass index [BMI] 45.0-49.9, adult; E87.1 Hypo-osmolality and hyponatremia; I11.0 Hypertensive heart disease with heart failure; E11.65 Type 2 diabetes mellitus with hyperglycemia; J44.9 Chronic obstructive pulmonary disease, unspecified; G43.909 Migraine, unspecified, not intractable, without status migrainosus; G89.29 Other chronic pain; K21.9 Gastro-esophageal reflux disease without esophagitis; M19.90 Unspecified osteoarthritis, unspecified site; E78.5 Hyperlipidemia, unspecified; G47.33 Obstructive sleep apnea (adult) (pediatric); F41.8 Other specified anxiety disorders; E83.42 Hypomagnesemia; E66.01 Morbid (severe) obesity due to excess calories; R79.89 Other specified abnormal findings of blood chemistry; I48.0 Paroxysmal atrial fibrillation; K76.0 Fatty (change of) liver, not elsewhere classified; Z79.01 Long term (current) use of anticoagulants; Z79.899 Other long term (current) drug therapy; Z79.82 Long term (current) use of aspirin; Z86.711 Personal history of pulmonary embolism; Z87.440 Personal history of urinary (tract) infections; Z90.710 Acquired absence of both cervix and uterus; Z90.49 Acquired absence of other specified parts of digestive tract; Z86.718 Personal history of other venous thrombosis and embolism; Z98.42 Cataract extraction status, left eye; Z98.41 Cataract extraction status, right eye; Z88.0 Allergy status to penicillin; Z88.2 Allergy status to sulfonamides; Z88.8 Allergy status to other drugs, medicaments and biological substances; Z83.3 Family history of diabetes mellitus; Z82.49 Family history of ischemic heart disease and other diseases of the circulatory system
CPT/HCPCS: 36415; 71045; 71275; 80053; 82962; 83036; 83880; 84484; 85025; 85027; 85520; 85610; 93005; 94640; 94760; 96365; 96375; 99285; J0360; J1644; J1815; J2060; J2270; J2405; J3480; Q9967; G0378; J7626

== ENCOUNTER 2020-02-17 19:20 | Observation (INO) | payer BC, OTHER ==
[~2020-02-17] VITALS: Ht 165.1 cm; Wt 126.5 kg
[2020-02-17] MEDS ORDERED: diphenhydrAMINE 50 MG/ML VIAL IVP ONE (19:45)
[2020-02-17] MEDS ORDERED: ALBUTEROL SULFATE 2.5 MG/3 ML NEBU. CONT NEB ONE (19:45)
[2020-02-17] MEDS ORDERED: methylPREDNISolone SOD SUCC PF 125 MG/2 ML VIAL. IV ONE (19:45)
--- NOTE | 2020-02-17 19:51 | PHYS DOC ---
Past Medical History Past Medical History: Asthma, CAD, COPD, Diabetes-Type II, DVT, GERD, Hyp ertension, Migraines, UTI, Other Additional Past Medical Histor: PE, chronic back/abdominal pain Past Surgical History: Appendectomy, Cholecystectomy, Hysterectomy, Other Additional Past Surgical Histo: bilateral shoulders,hernia repair x's 7,bilateral cataracts,colon resection Smoking Status: Never Smoker Alcohol Use: None Drug Use: None General Adult EDM: Chief Complaint: SHORTNESS OF BREATH HPI: HPI: Patient is a 69 year old female who presents with today began having an asthma flare. She states that she has taken 2 breathing treatments and used her pro- air inhaler 4 times. States she did see Dr. Castro today and told him but he told her just to stay inside and not go outside. She states that she stayed inside most the day but had to go out and run an errand. She states the mask wearing is not helping. Patient denies chest pain, dizziness, headache, vision changes, numbness or tingling, abdominal pain, nausea, vomiting, diarrhea, fever. Review of Systems: Review of Systems: Constitutional: Denies fever or chills. [] Eyes: Denies change in visual acuity. [] HENT: Denies nasal congestion or sore throat. [] Respiratory: Denies cough. +shortness of breath and wheezing. [] Cardiovascular: Denies chest pain or edema. [] GI: Denies abdominal pain, nausea, vomiting, bloody stools or diarrhea. [] : Denies dysuria. [] Musculoskeletal: Denies back pain or joint pain. [] Integument: Denies rash. [] Neurologic: Denies headache, focal weakness or sensory changes. [] Endocrine: Denies polyuria or polydipsia. [] Lymphatic: Denies swollen glands. [] Psychiatric: Denies depression or anxiety. [] Heart Score: Risk Factors: Risk Factors: DM, Current or recent (<one month) smoker, HTN, HLP, family history of CAD, obesity. Risk Scores: Score 0 - 3: 2.5% MACE over next 6 weeks - Discharge Home Score 4 - 6: 20.3% MACE over next 6 weeks - Admit for Clinical Observation Score 7 - 10: 72.7% MACE over next 6 weeks - Early Invasive Strategies Allergies: Allergies: Allergies Coded Allergies Type Severity Reaction Last Updated Verified Penicillins Allergy Severe itching, dry mouth, tongue swells 01/24/18 Yes Sulfa (Sulfonamide Antibiotics) Allergy Intermediate ITCHING DRY MOUTH, hives/swelling 12/16/15 Yes fentanyl Allergy Intermediate 12/16/15 Yes hydromorphone HCl Allergy Intermediate MORPHINE OK 12/16/15 Yes methylprednisolone Allergy Intermediate RED MAN SYNDROME 10/11/16 Yes prednisone Allergy Intermediate RED MED SYNDROME 10/11/16 Yes gluten Allergy Mild bloating 04/18/17 Yes I S O L A T I O N *CONTACT* Allergy Unknown 02/04/17 Yes oxycodone HCl Adverse Reaction Intermediate "i FEEL LIKE I HAVE WORMS IN ME" 12/16/15 Yes Physical Exam: PE: Constitutional: Well developed, well nourished, no acute distress, non-toxic appearance. [] HENT: Normocephalic, atraumatic, bilateral external ears normal, oropharynx moist, no oral exudates, nose normal. [] Eyes: PERRLA, EOMI, conjunctiva normal, no discharge. [] Neck: Normal range of motion, no tenderness, supple, no stridor. [] Cardiovascular:Heart rate regular rhythm, no murmur [] Lungs & Thorax: upper Bilateral breath sounds with inspiratory expiratory wheezes and lower breath sounds diminished to auscultation [] Abdomen: Bowel sounds normal, soft, no tenderness, no masses, no pulsatile masses. [] Skin: Warm, dry, no erythema, no rash. [] Back: No tenderness, no CVA tenderness. [] Extremities: No tenderness, no cyanosis, no clubbing, ROM intact, 2-3+ pitting edema. [] Neurologic: Alert and oriented X 3, normal motor function, normal sensory function, no focal deficits noted. [] Psychologic: Affect normal, judgement normal, mood normal. [] EKG: EK and read by Dr Kelly as Sinus Rhythm and no STEMI[] Radiology/Procedures: Radiology/Procedures: [] Impression: [facility] [address] [place] [address] IMAGING REPORT Signed PATIENT: ELY CARDOZA ACCOUNT: [id number] : 1950 LOCATION: ER AGE: 69 SEX: F EXAM STATUS: REG ER ORD. PHYSICIAN: TRAM DURHAM APRN REASON: shortness of air PROCEDURE: PORTABLE CHEST 1V Exam: Chest one view INDICATION: Shortness of breath TECHNIQUE: Frontal view of the chest Comparisons: 08/07/2020 FINDINGS: The cardiomediastinal silhouette and pulmonary vessels are within normal limits. The lung and pleural spaces are clear. IMPRESSION: No acute cardiopulmonary process. Electronically signed by: Dolores Ledbetter MD (02/17/2020 8:32 PM) [id number] DICTATED and SIGNED BY: DOLORES LEDBETTER MD DATE: 02/17/202031 Course & Med Decision Making: Course & Med Decision Making Pertinent Labs and Imaging studies reviewed. (See chart for details) Alert and oriented. Speaks in full complete sentences. Ambulatory with steady gait. Patient has a story expiratory wheezes in the upper lobes and diminished in lower lobes bilaterally. Patient has bilateral lower leg edema 2-3+ pitting. Skin pink warm and dry. Patient has a history of COPD, CAD, asthma, diabetes, PE, migraine, hypertension, GERD, DVT, UTI, appendectomy, cholecystectomy, hernia repairs, hysterectomy. After given Solu-Medrol and hour-long breathing treatment patient states she is not feeling any better. She is not hypoxic. Patient states she got up to go to the bathroom and she felt very winded. Her lungs do sound better. Patient admitt ed to hospitalist. [] Vanessa Disclaimer: Vanessa Disclaimer: This electronic medical record was generated, in whole or in part, using a voice recognition dictation system. Departure Departure Impression: Primary Impression: COPD exacerbation Disposition: ADMITTED INPATIENT Admitting Physician: ALANNAH Condition: STABLE Referrals: Meagan CASTRO MD (PCP) Justicifation of Admission Dx: Justifications for Admission: Justification of Admission Dx: Yes TRAM DURHAM APRN Feb 17, 2020 19:51
[2020-02-17 20:01] LABS: BASO # 0.1 x10^3/uL (0.0-0.2); BASO % 1 % (0-3); EOS # 0.2 x10^3/uL (0.0-0.7); EOS % 3 % (0-3); HEMATOCRIT 38.1 % (36.0-47.0); HEMOGLOBIN 12.9 g/dL (12.0-15.5); LYMPH # 3.5 x10^3/uL (1.0-4.8); LYMPH % 39 % (24-48); MEAN CORPUSCULAR HEMOGLOBIN 29 pg (25-35); MEAN CORPUSCULAR HGB CONC 34 g/dL (31-37); MEAN CORPUSCULAR VOLUME 87 fL (79-100); MONO # 0.6 x10^3/uL (0.0-1.1); MONO % 6 % (0-9); NEUT # 4.7 x10^3/uL (1.8-7.7); NEUT % 51 % (31-73); PLATELET COUNT 314 x10^3/uL (140-400); RED BLOOD COUNT 4.41 x10^6/uL (3.50-5.40); RED CELL DISTRIBUTION WIDTH 14.8 % (11.5-14.5); WHITE BLOOD COUNT 9.1 x10^3/uL (4.0-11.0)
[2020-02-17 20:05] LABS: BILIRUBIN,URINE NEGATIVE (NEG); CLARITY,URINE CLEAR; COLOR,URINE YELLOW; NITRITE,URINE NEGATIVE (NEG); PROTEIN,URINE NEGATIVE (NEG-TRACE); UROBILINOGEN,URINE 0.2 mg/dL (0.2 mg/dL)
[2020-02-17 20:09] LABS: CALCIUM 8.9 mg/dL (8.5-10.1); CREATININE 0.9 mg/dL (0.6-1.0); GFR 62.3; POTASSIUM 3.7 mmol/L (3.5-5.1)
[2020-02-17 20:12] LABS: BACTERIA,URINE FEW /HPF (0-FEW); RBC,URINE 0 /HPF (0-2); SQUAMOUS EPITHELIAL CELL,UR OCC /LPF; WBC,URINE 0 /HPF (0-4)
[2020-02-17 20:14] LABS: ALBUMIN 3.1 g/dL (3.4-5.0); ALBUMIN/GLOBULIN RATIO 0.8 (1.0-1.7); TOTAL BILIRUBIN 0.2 mg/dL (0.2-1.0); TOTAL PROTEIN 6.8 g/dL (6.4-8.2)
[2020-02-17 20:16] LABS: BASE EXCESS COOX 2 mmol/L (-3-3); HCO3 COOX 25 mmol/L (21-28); METHEMOGLOBIN 0.5 % (0.0-1.9); OXYHEMOGLOBIN 95.1 %; PCO2 COOX 38 mmHg (35-46); PO2 COOX 80 mmHg (65-108); SAT O2 COOX 96 % (92-99)
--- NOTE | 2020-02-17 20:35 | RAD ---
Exam: Chest one view INDICATION: Shortness of breath TECHNIQUE: Frontal view of the chest Comparisons: 08/07/2020 FINDINGS: The cardiomediastinal silhouette and pulmonary vessels are within normal limits. The lung and pleural spaces are clear. IMPRESSION: No acute cardiopulmonary process. Electronically signed by: Dolores Funes MD (02/17/2020 8:32 PM) [id number]
[2020-02-17 22:20] VITALS: BP 170/68
--- NOTE | 2020-02-17 22:20 | NUR ---
The patient, EYL CARDOZA, 69 y/o, F admitted by EVELIO CARODZA MD, was given written information regarding hospital policies, unit procedures and contact persons. Valuables were checked and left with her.
[2020-02-17 23:00] VITALS: BP 172/60
[2020-02-18 03:00] VITALS: BP 156/65
[2020-02-18] MEDS ORDERED: DEXTROSE 50% 25 GM / 50ML DISP.SYRIN. IV PRN (03:15)
--- NOTE | 2020-02-18 05:58 | EKG ---
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
[2020-02-18] MEDS: IPRATRPIUM/ALBUTEROL 0.5/2.5MG 3 ML NEBU. NEB SCH ×4 (07:13→21:01)
[2020-02-18 07:45] VITALS: BP 181/89
--- NOTE | 2020-02-18 07:59 | NUR ---
Patient Glucose 437. Paged DR. CARDOZA AT 0742 HOURS. orders received. PATIENT RECEIVED 14 UNITS HUMALOG.
[2020-02-18] MEDS: INSULIN LISPRO 300 UNITS/3 ML VIAL. SQ SCH ×4 (08:00→17:00)
[2020-02-18] MEDS: LISINOPRIL 20 MG TABLET PO SCH (09:40)
[2020-02-18] MEDS: METOPROLOL TART IMMED RELEASE 50 MG TABLET. PO SCH ×2 (09:40→20:09)
--- NOTE | 2020-02-18 11:11 | SSS ---
ADMIT DATE: 02/18/2020 CHIEF COMPLAINT: Shortness of breath. HISTORY OF PRESENT ILLNESS: The patient is a pleasant middle-aged female who has known COPD. She presented with shortness of breath, rated at 7/10. She has associated nausea and some weakness. She was admitted overnight for observation. This morning, she is back to her baseline and wanted to go home. I am going to give her a script for steroid taper and Z-LILIA and she has her breathing treatments at home. PAST MEDICAL HISTORY: CAD, asthma, COPD, diabetes, DVT, GERD, hypertension, migraines, UTI, pulmonary embolism, chronic back pain, cholecystectomy, hysterectomy, shoulder surgeries, hernia surgeries x 7, cataract surgeries, colon resection. ALLERGIES: PENICILLIN, SULFA, FENTANYL, GLUTEN, HYDROMORPHONE, METHYLPREDNISOLONE, OXYCODONE, AND PREDNISONE. FAMILY HISTORY: Coronary artery disease. SOCIAL HISTORY: She does not drink, smoke or take drugs. MEDICATIONS: Reviewed, please refer to the MRAD. REVIEW OF SYSTEMS: GENERAL: No history of weight change, weakness or fevers. SKIN: No bruising, hair changes or rashes. EYES: No blurred, double or loss of vision. NOSE AND THROAT: No history of nosebleeds, hoarseness or sore throat. HEART: No history of palpitations, chest pain or shortness of breath on exertion. LUNGS: Denies cough, hemoptysis, wheezing or shortness of breath. GASTROINTESTINAL: Denies changes in appetite, nausea, vomiting, diarrhea or constipation. GENITOURINARY: No history of frequency, urgency, hesitancy or nocturia. NEUROLOGIC: Denies history of numbness, tingling, tremor or weakness. PSYCHIATRIC: No history of panic, anxiety or depression. ENDOCRINE: No history of heat or cold intolerance, polyuria or polydipsia. EXTREMITIES: Denies muscle weakness, joint pain, pain on walking or stiffness. PHYSICAL EXAMINATION: VITALS: Within normal limits and are stable. GENERAL: No apparent distress. Alert and oriented. HEENT: Normal cephalic atraumatic, external auditory canals are patent EYES: Extraocular muscles are intact, pupils are equally round and reactive to light and accommodation MUSCULOSKELETAL: Well developed, well nourished, good range of motion ENDOCRINE: No thyromegaly was palpated LYMPHATICS: No cervical chain or axillary nodes were noted HEMATOPOIETIC: No bruising NECK: Supple, no JVD, no thyromegaly was noted. LUNGS: Denies cough, hemoptysis, She has decreased breath sounds, but her lungs are clear.. HEART: RRR, S1, S2 present. Peripheral pulses intact, no obvious murmurs were noted. ABDOMEN: Soft, nontender. Positive bowel sounds no organomegaly, normal bowel sounds. EXTREMITIES: Without any cyanosis, clubbing, or edema. Pedal pulses intact, Homans sign is negative. NEUROLOGIC: Normal speech, normal tone. A & O x3, moves all extremities, no obvious focal deficits. PSYCHIATRIC: Normal affect, normal mood. Stable. SKIN: No ulcerations or rashes, good skin turgor, no jaundice. VASCULAR: Good capillary refill, neurovascular bundle appears to be intact.. LABORATORY DATA: Hematology is normal. Electrolytes are normal other than a sodium of 135. Troponin is 0. BNP is slightly high at 269. Urinalysis is negative. Chest x-ray is negative. ASSESSMENT AND PLAN: Resolving chronic obstructive pulmonary disease exacerbation. We will go ahead and discharge. DISPOSITION: Home. ACTIVITY: As tolerated. DIET: Low sodium. MEDICATIONS: Please see MRAD. TOTAL TIME: 32 minutes. LISBETHL Irena YEE DO DR: BERNARDO/alyce JOB#: [id number] / [id number]
[2020-02-18 11:42] VITALS: BP 145/80
[2020-02-18] MEDS: ONDANSETRON PF 4 MG/2 ML VIAL. IV PRN ×2 (11:49→18:44)
[2020-02-18] MEDS ORDERED: INSULIN LISPRO 300 UNITS/3 ML VIAL. SQ SCH (12:00)
--- NOTE | 2020-02-18 12:03 | NUR ---
SS following up with discharge planning. SS reviewed pt chart and discussed with pt RN. Pt is currently on room air. Discharge order on the chart for home with self care.
[2020-02-18] MEDS: INSULIN GLARGINE SYRINGE. SQ SCH (14:17)
--- NOTE | 2020-02-18 14:47 | NUR ---
Patient Glucose [address] Kaplan paged. Start home INSULIN NOW since she missed Lantus morning dose. Dr. Kaplan requested home meds started to manage Glucose and BP. According to Dr. Kaplan, discharge patient once Glucose is below 200. Patient will continue medication regiment at home with self-care.
[2020-02-18 15:37] VITALS: BP 159/73
--- NOTE | 2020-02-18 16:07 | NUR ---
patient's Glucose 383. Notified Dr. Kaplan. Orders received .25 units Humalog NOW and reassess at 1700 hours. Patient is not ready for discharge.
[2020-02-18] MEDS ORDERED: INSULIN LISPRO 300 UNITS/3 ML VIAL. SQ STA (16:18)
[2020-02-18] MEDS ORDERED: INSULIN LISPRO 300 UNITS/3 ML VIAL. SQ ONE (17:30)
[2020-02-18] MEDS: glyBURIDE 5 MG TABLET PO SCH (18:55)
[2020-02-18] MEDS ORDERED: LORazepam 0.5 MG TABLET PO PRN (19:00)
[2020-02-18] MEDS ORDERED: POLYETHYLENE GLYCOL 3350 17 GM PACKET. PO PRN (19:00)
[2020-02-18] MEDS ORDERED: ALBUTEROL SULFATE 2.5 MG/3 ML NEBU. NEB PRN (19:15)
[2020-02-18 19:35] VITALS: BP 141/50
[2020-02-18] MEDS ORDERED: diphenhydrAMINE 50 MG/ML VIAL IVP PRN (19:45)
--- NOTE | 2020-02-18 19:54 | NUR ---
Notified Dr. Kaplan regarding elevated Glucose. Orders received. 10mg Glyburide PO administered at approximately 1745. Admit status changed from observation to Admit IN. Patient will stay overnight and reassess tomorrow.
[2020-02-18] MEDS ORDERED: SIMVASTATIN 10 MG TABLET PO SCH (21:00)
[2020-02-18] MEDS ORDERED: EZETIMIBE 10 MG TABLET. PO SCH (21:00)
[2020-02-18] MEDS: BUDESONIDE 0.5 MG/2 ML NEBU. NEB SCH (21:00)
[2020-02-18] MEDS ORDERED: MONTELUKAST SODIUM 10 MG TABLET. PO SCH (21:00)
[2020-02-18 23:57] VITALS: BP 129/56
[2020-02-19 03:42] VITALS: BP 140/63
[2020-02-19] MEDS: ONDANSETRON PF 4 MG/2 ML VIAL. IVP PRN ×2 (03:42→10:42)
[2020-02-19 07:13] VITALS: BP 143/64
[2020-02-19] MEDS: IPRATRPIUM/ALBUTEROL 0.5/2.5MG 3 ML NEBU. NEB SCH ×2 (07:15→12:00)
[2020-02-19] MEDS: BUDESONIDE 0.5 MG/2 ML NEBU. NEB SCH (07:15)
[2020-02-19] MEDS: INSULIN LISPRO 300 UNITS/3 ML VIAL. SQ SCH ×2 (08:00→11:57)
[2020-02-19] MEDS ORDERED: LUBIPROSTONE 24 MCG CAPSULE PO SCH (08:00)
[2020-02-19] MEDS ORDERED: ASPIRIN ENTERIC COATED 81 MG TABLET.DR. PO SCH (08:00)
[2020-02-19] MEDS: LISINOPRIL 20 MG TABLET PO SCH (08:45)
[2020-02-19] MEDS: glyBURIDE 5 MG TABLET PO SCH (08:46)
[2020-02-19] MEDS: METOPROLOL TART IMMED RELEASE 50 MG TABLET. PO SCH (08:46)
[2020-02-19] MEDS: INSULIN GLARGINE SYRINGE. SQ SCH (08:54)
[2020-02-19] MEDS ORDERED: DULoxetine HCL 30 MG CAPSULE.DR PO SCH (09:00)
[2020-02-19] MEDS ORDERED: OMEGA-3 FATTY ACIDS/FISH OIL 1,000 MG CAPSULE. PO SCH (09:00)
[2020-02-19 11:12] VITALS: BP 147/66
--- NOTE | 2020-02-19 12:50 | NUR ---
pt discharged home via private vehicle accompanied by family. IV removed, cath intact. pt stable upon dc. meds and follow up reviewed.
== END 2020-02-19 12:52 | disposition home or self-care (01) ==
LOC: ER 19:20 → 6 SOUTH 20:49
PROVIDERS: ADMIT Internal Medicine; ATTEND Internal Medicine
DX: J44.1 Chronic obstructive pulmonary disease with (acute) exacerbation (principal); I25.10 Atherosclerotic heart disease of native coronary artery without angina pectoris; I10 Essential (primary) hypertension; E11.9 Type 2 diabetes mellitus without complications; Z86.711 Personal history of pulmonary embolism; Z90.49 Acquired absence of other specified parts of digestive tract; Z90.710 Acquired absence of both cervix and uterus
CPT/HCPCS: 36415; 36600; 71045; 80053; 81001; 82805; 82962; 83880; 84484; 85025; 87641; 93005; 94640; 94760; G0378; G0379; J1200; J1815; J2405; J2930; 96372; 96374; 96375; 96376; 99285-25; J7613; J7626

== ENCOUNTER 2020-03-10 19:53 | Emergency (ER) | payer BC, OTHER ==
[~2020-03-10] VITALS: Ht 165.1 cm; Wt 145.0 kg
[2020-03-10] MEDS ORDERED: ASPIRIN CHEWABLE 81 MG TABLET. PO ONE (20:45)
[2020-03-10] MEDS ORDERED: ONDANSETRON PF 4 MG/2 ML VIAL. IV ONE (20:45)
--- NOTE | 2020-03-10 20:56 | PHYS DOC ---
Past Medical History Past Medical History: Asthma, CAD, COPD, Diabetes-Type II, DVT, GERD, Hyp ertension, Migraines, UTI, Other Additional Past Medical Histor: PE, chronic back/abdominal pain Past Surgical History: Appendectomy, Cholecystectomy, Hysterectomy, Other Additional Past Surgical Histo: bilateral shoulders,hernia repair x's 7,bilateral cataracts,colon resection Smoking Status: Never Smoker Alcohol Use: None Drug Use: None General Adult EDM: Chief Complaint: CHEST PAIN HPI: HPI: Patient is a 69 year old female patient who presents with chest pain. Patient reports that the pain started earlier today, states is mostly in the right side of her chest, worse when she takes a deep breath. States she has a history of a prior pulmonary emboli, several years earlier. States she did home blood thinners for many years, is taking warfarin, reports her last INR was "normal". States she has not taken any medications for this discomfort, she did take an aspirin 81 mg earlier this morning. States no other medication for her discomfort. States she has had limited increased exertional dyspnea over the last day. Denies fever. Denies nausea. States discomfort is a little worse when she takes a deep breath, or when she moves. States she has had similar discomfort in the past Review of Systems: Review of Systems: Constitutional: Denies fever or chills. [] Eyes: Denies change in visual acuity. [] HENT: Denies nasal congestion or sore throat. [] Respiratory: Reports some shortness of breath, reports some discomfort when taking a deep breath Cardiovascular: States chest wall pain GI: Denies abdominal pain, nausea, vomiting, bloody stools or diarrhea. [] : Denies dysuria. [] Musculoskeletal: Denies back pain or joint pain. [] Integument: Denies rash. [] Neurologic: Denies headache, focal weakness or sensory changes. [] Endocrine: Denies polyuria or polydipsia. [] Lymphatic: Denies swollen glands. [] Psychiatric: Denies depression or anxiety. [] Heart Score: HEART Score for Chest Pain: HEART Score for Chest Pain Response (Comments) Value History Slighlty/Non-Suspicious 0 ECG Normal 0 Age > 65 2 Risk Factors >3 Risk Factors or Hx CAD 2 Troponin < Normal Limit 0 Total 4 Risk Factors: Risk Factors: DM, Current or recent (<one month) smoker, HTN, HLP, family history of CAD, obesity. Risk Scores: Score 0 - 3: 2.5% MACE over next 6 weeks - Discharge Home Score 4 - 6: 20.3% MACE over next 6 weeks - Admit for Clinical Observation Score 7 - 10: 72.7% MACE over next 6 weeks - Early Invasive Strategies Current Medications: Current Medications Medications (Trade) Dose Ordered Sig/Irish Start Time Stop Time Status Last Admin Dose Admin Aspirin (Aspirin Chewable) 324 mg 1X ONCE 03/10/20 20:45 03/10/20 20:46 DC Ondansetron HCl (Zofran) 4 mg 1X ONCE 03/10/20 20:45 03/10/20 20:46 DC Allergies: Allergies: Allergies Coded Allergies Type Severity Reaction Last Updated Verified Penicillins Allergy Severe itching, dry mouth, tongue swells 01/24/18 Yes Sulfa (Sulfonamide Antibiotics) Allergy Intermediate ITCHING DRY MOUTH, hives/swelling 12/16/15 Yes fentanyl Allergy Intermediate 12/16/15 Yes hydromorphone HCl Allergy Intermediate MORPHINE OK 12/16/15 Yes methylprednisolone Allergy Intermediate RED MAN SYNDROME 10/11/16 Yes prednisone Allergy Intermediate RED MED SYNDROME 10/11/16 Yes gluten Allergy Mild bloating 04/18/17 Yes I S O L A T I O N *CONTACT* Allergy Unknown 02/04/17 Yes oxycodone HCl Adverse Reaction Intermediate "i FEEL LIKE I HAVE WORMS IN ME" 12/16/15 Yes Physical Exam: PE: Constitutional: Well developed, obese, well nourished, no acute distress, non- toxic appearance. [] HENT: Normocephalic, atraumatic, bilateral external ears normal, oropharynx moist, no oral exudates, nose normal. [] Eyes: PERRLA, EOMI, conjunctiva normal, no discharge. [] Neck: Normal range of motion, no tenderness, supple, no stridor. [] Cardiovascular:Heart rate regular rhythm, no murmur [] Lungs & Thorax: Bilateral breath sounds clear to auscultation [] Abdomen: Bowel sounds normal, soft, no tenderness, no masses, no pulsatile masses. [] Skin: Warm, dry, no erythema, no rash. [] Back: No tenderness, no CVA tenderness. [] Extremities: No tenderness, no cyanosis, no clubbing, ROM intact, no edema. [] Neurologic: Alert and oriented X 3, normal motor function, normal sensory function, no focal deficits noted. [] Psychologic: Affect normal, judgement normal, mood normal. [] EKG: EKG: Sinus rhythm without St changes per Dr Saunders[] Radiology/Procedures: Radiology/Procedures: [] Course & Med Decision Making: Course & Med Decision Making Pertinent Labs and Imaging studies reviewed. (See chart for details) []Reviewed prior history, patient has had multiple PE work- up recently. Radiology reports 70 CT since 2007 and advises caution with future studies. Given D Dimer barely out of range, with patient currently on warfarin, no tachycardia, no hypoxia, believe low risk for PE. [employer] Disclaimer: [employer] Disclaimer: This electronic medical record was generated, in whole or in part, using a voice recognition dictation system. PERC Rule for PE PERC Rule for PE Response (Comments) Value Age > 50: Yes 1 HR > 100: No 0 Sa02 on room air <95%: No 0 Unilateral leg swelling: No 0 Hemoptysis: No 0 Recent surgery or trauma: No 0 Prior PE or DVT: Yes 1 Hormone use: No 0 Total 2 Departure Departure Impression: Primary Impression: Chest wall pain Disposition: HOME, SELF-CARE Condition: IMPROVED Referrals: Meagan ALVAREZ MD (PCP) Patient Instructions: Chest Wall Pain, Pleurisy, Mwcz-as-Myst Additional Instructions: As we discussed, try to get into see Dr. Alvarez sometime in the next week or so to make sure you are feeling better. Continue to take Tylenol or ibuprofen as needed for your discomfort. You may take 650 to 1000 mg of Tylenol every 6 hours or 600 mg of ibuprofen every 6 hours for discomfort. Justicifation of Admission Dx: Justifications for Admission: Justification of Admission Dx: N/A SREEDHAR RODRIGUEZ APRN Mar 10, 2020 20:56
[2020-03-10 21:02] LABS: BASO # 0.1 x10^3/uL (0.0-0.2); BASO % 1 % (0-3); EOS # 0.3 x10^3/uL (0.0-0.7); EOS % 3 % (0-3); HEMATOCRIT 39.7 % (36.0-47.0); LYMPH # 3.8 x10^3/uL (1.0-4.8); LYMPH % 40 % (24-48); MEAN CORPUSCULAR HEMOGLOBIN 30 pg (25-35); MEAN CORPUSCULAR HGB CONC 35 g/dL (31-37); MEAN CORPUSCULAR VOLUME 85 fL (79-100); MONO # 0.6 x10^3/uL (0.0-1.1); MONO % 7 % (0-9); NEUT # 4.7 x10^3/uL (1.8-7.7); NEUT % 49 % (31-73); PLATELET COUNT 311 x10^3/uL (140-400); RED BLOOD COUNT 4.69 x10^6/uL (3.50-5.40); RED CELL DISTRIBUTION WIDTH 14.8 % (11.5-14.5); WHITE BLOOD COUNT 9.5 x10^3/uL (4.0-11.0)
[2020-03-10 21:04] LABS: CALCIUM 8.8 mg/dL (8.5-10.1); CREATININE 0.8 mg/dL (0.6-1.0); GFR 71.3
[2020-03-10 21:10] LABS: ALBUMIN 3.4 g/dL (3.4-5.0); MAGNESIUM 1.9 mg/dL (1.8-2.4); TOTAL BILIRUBIN 0.2 mg/dL (0.2-1.0); TOTAL PROTEIN 6.7 g/dL (6.4-8.2)
--- NOTE | 2020-03-10 21:37 | RAD ---
EXAM: AP View of the chest DATE: 03/10/2020 8:42 PM INDICATION: Chest pain COMPARISON: 02/17/2020, 01/29/2020 FINDINGS: The heart is not enlarged. Mediastinal and hilar contours are normal. No focal parenchymal airspace opacity. No pleural effusion or pneumothorax. Bilateral shoulder arthroplasties are partially profiled. IMPRESSION: 1. No radiographic evidence for acute cardiopulmonary process. Electronically signed by: Subhash Del Valle MD (03/10/2020 9:35 PM) ESTUARDO
[2020-03-10] MEDS ORDERED: KETOROLAC 15 MG/ML VIAL. IVP ONE (22:00)
[2020-03-10 22:33] VITALS: BP 149/65
--- NOTE | 2020-03-14 09:49 | EKG ---
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
== END 2020-03-10 22:41 | disposition home or self-care (01) ==
LOC: ER 19:53
DX: R07.1 Chest pain on breathing (principal); J44.9 Chronic obstructive pulmonary disease, unspecified; E11.9 Type 2 diabetes mellitus without complications; K21.9 Gastro-esophageal reflux disease without esophagitis; I10 Essential (primary) hypertension; G43.909 Migraine, unspecified, not intractable, without status migrainosus; I25.10 Atherosclerotic heart disease of native coronary artery without angina pectoris; Z86.718 Personal history of other venous thrombosis and embolism; Z87.440 Personal history of urinary (tract) infections; Z86.711 Personal history of pulmonary embolism; Z90.89 Acquired absence of other organs; Z90.49 Acquired absence of other specified parts of digestive tract; Z90.710 Acquired absence of both cervix and uterus; Z98.890 Other specified postprocedural states; Z88.0 Allergy status to penicillin; Z88.2 Allergy status to sulfonamides; Z88.4 Allergy status to anesthetic agent; Z88.5 Allergy status to narcotic agent; Z91.041 Radiographic dye allergy status; Z88.8 Allergy status to other drugs, medicaments and biological substances
CPT/HCPCS: 36415; 71045; 80053; 83735; 84484; 85025; 85379; 93005; 96374; 96375; 99285; J1885; J2405

== ENCOUNTER 2020-04-01 21:37 | Emergency (ER) | payer BC, OTHER ==
[~2020-04-01] VITALS: Ht 165.1 cm; Wt 126.0 kg
[~2020-04-01 21:37] MED LIST changes: -ASPI-612 PO; +ASPI-886 PO
[2020-04-01 22:20] VITALS: BP 137/89
--- NOTE | 2020-04-01 23:51 | PHYS DOC ---
Past Medical History Past Medical History: Asthma, CAD, COPD, Diabetes-Type II, DVT, GERD, Hyp ertension, Migraines, UTI, Other Additional Past Medical Histor: PE, chronic back/abdominal pain,OBESITY Past Surgical History: Appendectomy, Cholecystectomy, Hysterectomy, Other Additional Past Surgical Histo: bilateral shoulders,hernia repair x's 7,bilateral cataracts,colon resection Smoking Status: Never Smoker Alcohol Use: None Drug Use: None General Adult EDM: Chief Complaint: ABDOMINAL PAIN HPI: HPI: Patient is a 69 year old female who presents with vague complaints of right upper quadrant abdominal pain. Patient reports that it started about a week ago. She was leaning up against the sink and was washing some dishes when she began to have pain in the right costochondral margin. The pain was intermittent at first but now it seems to be persistent. Patient states that movement will bring it on, deep breaths and changes in position as well. Patient reports that her appetite is the same, reports no change in pain with eating, denies any nausea, vomiting, diarrhea, melena or hematochezia, fever or chills. She denies any difficulty with urination. Review of Systems: Review of Systems: Constitutional: Denies fever or chills. [] Eyes: Denies change in visual acuity. [] HENT: Denies nasal congestion or sore throat. [] Respiratory: Denies cough or shortness of breath. [] Cardiovascular: Denies chest pain or edema. [] GI: See HPI. [] : Denies dysuria. [] Musculoskeletal: Denies back pain or joint pain. [] Integument: Denies rash. [] Neurologic: Denies headache, focal weakness or sensory changes. [] Endocrine: Denies polyuria or polydipsia. [] Lymphatic: Denies swollen glands. [] Psychiatric: Denies depression or anxiety. [] Heart Score: Risk Factors: Risk Factors: DM, Current or recent (<one month) smoker, HTN, HLP, family history of CAD, obesity. Risk Scores: Score 0 - 3: 2.5% MACE over next 6 weeks - Discharge Home Score 4 - 6: 20.3% MACE over next 6 weeks - Admit for Clinical Observation Score 7 - 10: 72.7% MACE over next 6 weeks - Early Invasive Strategies Allergies: Allergies: Allergies Coded Allergies Type Severity Reaction Last Updated Verified Penicillins Allergy Severe itching, dry mouth, tongue swells 01/24/18 Yes Sulfa (Sulfonamide Antibiotics) Allergy Intermediate ITCHING DRY MOUTH, hives/swelling 12/16/15 Yes fentanyl Allergy Intermediate 12/16/15 Yes hydromorphone HCl Allergy Intermediate MORPHINE OK 12/16/15 Yes methylprednisolone Allergy Intermediate RED MAN SYNDROME 10/11/16 Yes prednisone Allergy Intermediate RED MED SYNDROME 10/11/16 Yes gluten Allergy Mild bloating 04/18/17 Yes I S O L A T I O N *CONTACT* Allergy Unknown 02/04/17 Yes oxycodone HCl Adverse Reaction Intermediate "i FEEL LIKE I HAVE WORMS IN ME" 12/16/15 Yes Physical Exam: PE: Constitutional: Well developed, well nourished, no acute distress, non-toxic appearance. [] HENT: Normocephalic, atraumatic, bilateral external ears normal, oropharynx moist, no oral exudates, nose normal. [] Eyes: PERRLA, EOMI, conjunctiva normal, no discharge. [] Neck: Normal range of motion, no tenderness, supple, no stridor. [] Cardiovascular:Heart rate regular rhythm, no murmur [] Lungs & Thorax: Bilateral breath sounds clear to auscultation [] Abdomen: Abdomen was soft, good bowel sounds, negative Zurita sign, tenderness in the right costal margin which worsened with increased abdominal wall tension, no masses, no guarding, no rebound [] Skin: Warm, dry, no erythema, no rash. [] Back: No tenderness, no CVA tenderness. [] Extremities: No tenderness, no cyanosis, no clubbing, ROM intact, trace edema bilaterally, pulses 1 out of 2 dorsalis pedis bilaterally [] Neurologic: Alert and oriented X 3, normal motor function, normal sensory function, no focal deficits noted. [] Psychologic: Affect normal, judgement normal, mood normal. [] EKG: EKG: [] Radiology/Procedures: Radiology/Procedures: [] Course & Med Decision Making: Course & Med Decision Making Pertinent Labs and Imaging studies reviewed. (See chart for details) 0143-patient was seen and reevaluated. No evidence for next medical surgical problem including acute cholecystitis, pancreatitis, obstruction of the bowel system amongst others. Patient responded to Toradol with improvement in her pain. I discussed treatment plan, reasons to return and need for follow-up. [] Dragon Disclaimer: Dragon Disclaimer: This electronic medical record was generated, in whole or in part, using a voice recognition dictation system. Departure Departure Impression: Primary Impression: Strain of abdominal wall Qualified Codes: S39.011A - Strain of muscle, fascia and tendon of abdomen, initial encounter Additional Impressions: Chest wall pain RUQ abdominal pain Disposition: HOME, SELF-CARE Condition: STABLE Referrals: Meagan ALVAREZ MD (PCP) Patient Instructions: Abdominal Pain, Muscle Strain Additional Instructions: Return for fever, change in abdominal pain, nausea or vomiting, black stools or uncontrolled pain. Scripts Tramadol Hcl (TRAMADOL HCL) 50 Mg Tablet 50 MG PO Q6HRS PRN for PAIN, #14 TAB Prov: ELIZABETH BAUTISTA MD 04/02/20 Justicifation of Admission Dx: Justifications for Admission: Justification of Admission Dx: N/A ELIZABETH BAUTISTA MD Apr 01, 2020 23:51
[2020-04-01 23:58] LABS: BASO # 0.1 x10^3/uL (0.0-0.2); BASO % 1 % (0-3); EOS # 0.3 x10^3/uL (0.0-0.7); EOS % 3 % (0-3); HEMATOCRIT 39.4 % (36.0-47.0); HEMOGLOBIN 13.5 g/dL (12.0-15.5); LYMPH # 4.3 x10^3/uL (1.0-4.8); LYMPH % 45 % (24-48); MEAN CORPUSCULAR HEMOGLOBIN 29 pg (25-35); MEAN CORPUSCULAR HGB CONC 34 g/dL (31-37); MEAN CORPUSCULAR VOLUME 85 fL (79-100); MONO # 0.6 x10^3/uL (0.0-1.1); MONO % 6 % (0-9); NEUT # 4.3 x10^3/uL (1.8-7.7); NEUT % 45 % (31-73); PLATELET COUNT 296 x10^3/uL (140-400); RED BLOOD COUNT 4.66 x10^6/uL (3.50-5.40); RED CELL DISTRIBUTION WIDTH 14.6 % (11.5-14.5); WHITE BLOOD COUNT 9.6 x10^3/uL (4.0-11.0)
[2020-04-02 00:07] LABS: CALCIUM 8.7 mg/dL (8.5-10.1); CREATININE 0.9 mg/dL (0.6-1.0); GFR 62.3; POTASSIUM 4.3 mmol/L (3.5-5.1)
[2020-04-02 00:15] LABS: ALBUMIN 3.1 g/dL (3.4-5.0); ALBUMIN/GLOBULIN RATIO 0.9 (1.0-1.7); TOTAL BILIRUBIN 0.2 mg/dL (0.2-1.0); TOTAL PROTEIN 6.5 g/dL (6.4-8.2)
[2020-04-02] MEDS ORDERED: KETOROLAC 30 MG/ML VIAL. IVP ONE (00:15)
[2020-04-02 00:43] LABS: BILIRUBIN,URINE NEGATIVE (NEG); CLARITY,URINE CLEAR; COLOR,URINE YELLOW; NITRITE,URINE NEGATIVE (NEG); PH,URINE 5.5 (<5.0-8.0); PROTEIN,URINE NEGATIVE (NEG-TRACE); UROBILINOGEN,URINE 0.2 mg/dL (0.2 mg/dL)
[2020-04-02 00:54] LABS: BACTERIA,URINE MODERATE /HPF (0-FEW); RBC,URINE 0 /HPF (0-2); SQUAMOUS EPITHELIAL CELL,UR MOD /LPF
[2020-04-02] MEDS ORDERED: TRAM50TA PO (01:45)
== END 2020-04-02 02:04 | disposition home or self-care (01) ==
LOC: ER 21:37
DX: S39.011A Strain of muscle, fascia and tendon of abdomen, initial encounter (principal); R07.89 Other chest pain; R10.31 Right lower quadrant pain; J44.9 Chronic obstructive pulmonary disease, unspecified; E11.9 Type 2 diabetes mellitus without complications; K21.9 Gastro-esophageal reflux disease without esophagitis; G43.909 Migraine, unspecified, not intractable, without status migrainosus; I11.9 Hypertensive heart disease without heart failure; Z90.89 Acquired absence of other organs; Z90.710 Acquired absence of both cervix and uterus; Z90.49 Acquired absence of other specified parts of digestive tract; Z98.890 Other specified postprocedural states; Z86.718 Personal history of other venous thrombosis and embolism; Z88.0 Allergy status to penicillin; Z88.2 Allergy status to sulfonamides; Z88.5 Allergy status to narcotic agent; Z88.8 Allergy status to other drugs, medicaments and biological substances; Z88.6 Allergy status to analgesic agent
CPT/HCPCS: 36415; 80053; 81001; 83690; 85025; 87086; 96374; 99283; J1885

== ENCOUNTER 2020-05-27 20:49 | Emergency (ER) | payer BC, OTHER ==
[~2020-05-27] VITALS: Ht 165.1 cm; Wt 126.7 kg
[~2020-05-27 20:49] MED LIST changes: +AMLO-186 PO; -AMLO5TAB10 PO
[2020-05-27] MEDS ORDERED: MORPHINE SULFATE 4 MG/ML VIAL. IV ONE (21:30)
[2020-05-27] MEDS ORDERED: ONDANSETRON PF 4 MG/2 ML VIAL. IVP ONE (21:30)
[2020-05-27] MEDS ORDERED: IV NORMAL SALINE 500ML BAG 500 ML IV ONE (21:30)
--- NOTE | 2020-05-27 21:30 | PHYS DOC ---
Past Medical History Past Medical History: Asthma, CAD, COPD, Diabetes-Type II, DVT, GERD, Hyp ertension, Migraines, UTI, Other Additional Past Medical Histor: PE, chronic back/abdominal pain,OBESITY (MAKAYLA DURHAM SWAGER OPERATOR) Past Surgical History: Appendectomy, Cholecystectomy, Hysterectomy, Other Additional Past Surgical Histo: bilateral shoulders,hernia repair x's 7,bilateral cataracts,colon resection (MAKAYLA DURHAM SWAGER OPERATOR) Smoking Status: Never Smoker Alcohol Use: None Drug Use: None (MAKAYLA DURHAM SWAGER OPERATOR) General Adult EDM: Chief Complaint: ABDOMINAL PAIN HPI: HPI: Patient is a 70 year old female who presents with nausea and generalized sharp abdominal pain for last 2 days. Patient has chronic abdominal pain and has had many CT scans in the last year. Patient states her last bowel movement was today and it was normal for her. She states there is no blood in her stool. She states she is not vomited. She rates her pain a 10 out of 10 at this time. Patient is guarding her abdomen. Patient has a history of an appendectomy, cholecystectomy, hysterectomy, colon resection, COPD, hypertension, diabetes, ileus, hypokalemia, a flutter, DVT, PE CHF, UTI, GERD, migraine, CAD. (MAKAYLA DURHAM SWAGER OPERATOR) Review of Systems: Review of Systems: Constitutional: Denies fever or chills. [] Eyes: Denies change in visual acuity. [] HENT: Denies nasal congestion or sore throat. [] Respiratory: Denies cough or shortness of breath. [] Cardiovascular: Denies chest pain or edema. [] GI: + Generalized abdominal pain, +nausea, denies vomiting, bloody stools or diarrhea. [] : Denies dysuria. [] Musculoskeletal: Denies back pain or joint pain. [] Integument: Denies rash. [] Neurologic: Denies headache, focal weakness or sensory changes. [] Endocrine: Denies polyuria or polydipsia. [] Lymphatic: Denies swollen glands. [] Psychiatric: Denies depression or anxiety. [] (MAKAYLA DURHAM SWAGER OPERATOR) Heart Score: Risk Factors: Risk Factors: DM, Current or recent (<one month) smoker, HTN, HLP, family history of CAD, obesity. Risk Scores: Score 0 - 3: 2.5% MACE over next 6 weeks - Discharge Home Score 4 - 6: 20.3% MACE over next 6 weeks - Admit for Clinical Observation Score 7 - 10: 72.7% MACE over next 6 weeks - Early Invasive Strategies (MAKAYLA DURHAM APRN) Current Medications: Current Medications Medications (Trade) Dose Ordered Sig/Irish Start Time Stop Time Status Last Admin Dose Admin Morphine Sulfate (Morphine Sulfate) 4 mg 1X ONCE 05/27/20 21:30 05/27/20 21:31 Ondansetron HCl (Zofran) 4 mg 1X ONCE 05/27/20 21:30 05/27/20 21:12 DC Sodium Chloride 500 ml @ 500 mls/hr 1X ONCE 05/27/20 21:30 05/27/20 22:29 (MAKAYLA DURHAM APRN) Allergies: Allergies: Allergies Coded Allergies Type Severity Reaction Last Updated Verified Penicillins Allergy Severe itching, dry mouth, tongue swells 01/24/18 Yes Sulfa (Sulfonamide Antibiotics) Allergy Intermediate ITCHING DRY MOUTH, hives/swelling 12/16/15 Yes fentanyl Allergy Intermediate 12/16/15 Yes hydromorphone HCl Allergy Intermediate MORPHINE OK 12/16/15 Yes methylprednisolone Allergy Intermediate RED MAN SYNDROME 10/11/16 Yes prednisone Allergy Intermediate RED MED SYNDROME 10/11/16 Yes gluten Allergy Mild bloating 04/18/17 Yes I S O L A T I O N *CONTACT* Allergy Unknown 02/04/17 Yes oxycodone HCl Adverse Reaction Intermediate "i FEEL LIKE I HAVE WORMS IN ME" 12/16/15 Yes (MAKAYLA DURHAM APRN) Physical Exam: PE: Constitutional: Well developed, well nourished, no acute distress, non-toxic appearance. [] HENT: Normocephalic, atraumatic, bilateral external ears normal, oropharynx moist, no oral exudates, nose normal. [] Eyes: PERRLA, EOMI, conjunctiva normal, no discharge. [] Neck: Normal range of motion, no tenderness, supple, no stridor. [] Cardiovascular:Heart rate regular rhythm, no murmur [] Lungs & Thorax: Bilateral breath sounds clear to auscultation [] Abdomen: Bowel sounds normal, guarding, soft but slightly taut, generalized tenderness, no masses, no pulsatile masses. [] Skin: Warm, dry, no erythema, no rash. [] Back: No tenderness, no CVA tenderness. [] Extremities: No tenderness, no cyanosis, no clubbing, ROM intact, no edema. [] Neurologic: Alert and oriented X 3, normal motor function, normal sensory func tion, no focal deficits noted. [] Psychologic: Affect normal, judgement normal, mood normal. [] (MAKAYLA DURHAM APRN) PE: Constitutional: Well developed, well nourished, no acute distress, non-toxic ap pearance HENT: Normocephalic, atraumatic Eyes: Conjunctiva normal, no discharge Neck: Normal range of motion, no tenderness, supple Lungs & Thorax: No respiratory distress, equal chest rise and fall Abdomen: Soft, mild tenderness to lower abdomen, no guarding Skin: Warm, dry, no erythema, no rash Extremities: No tenderness, ROM intact, no edema Neurologic: Alert and oriented X 3, no focal deficits noted Psychologic: Affect normal, judgment normal (CHRISTI VILLAGRAN DO) Current Patient Data: Vital Signs: Vital Signs Date Time Temp Pulse Resp B/P (MAP) Pulse Ox O2 Delivery O2 Flow Rate FiO2 05/27/20 21:00 98.2 88 20 219/85 (129) 98 Room Air 98.2 (MAKAYLA DURHAM APRN) EKG: EK and read by Dr Villagran as Sinus Rhythm and no STEMI[] (MAKAYLA DURHAM APRN) Radiology/Procedures: Radiology/Procedures: [] Impression: [facility] [address] [place] [address] IMAGING REPORT Signed PATIENT: ELY CARDOZA ACCOUNT: [id number] : 1950 LOCATION: ER AGE: 70 SEX: F EXAM STATUS: REG ER ORD. PHYSICIAN: MAKAYLA DURHAM APRN REASON: PAIN, NAUSEA PROCEDURE: ACUTE ABDOMEN SERIES Exam: Acute abdominal series INDICATION: Pain, nausea TECHNIQUE: Frontal view of the chest with upright and supine views of the abdomen Comparisons: None FINDINGS: The cardiomediastinal silhouette and pulmonary vessels are within normal limits. The lung and pleural spaces are clear. Air and stool are noted throughout the colon to level the rectum in a nonobstructive bowel gas pattern. No suspicious masses or calcifications. Visualized osseous structures are unremarkable. IMPRESSION: 1. No acute cardiopulmonary process. 2. Nonobstructive bowel gas pattern. Electronically signed by: Dolores Ledbetter MD (05/27/2020 10:17 PM) [facility] DICTATED and SIGNED BY: DOLORES LEDBETTER MD DATE: 05/27/202216 (MAKAYLA DURHAM APRN) Course & Med Decision Making: Course & Med Decision Making Pertinent Labs and Imaging studies reviewed. (See chart for details) See HPI. I was notified that the patient has had many CT scans. She is able to move her bowels and have a normal stool this AM. Bowel sounds are normal active. Denies diarrhea. Patient states this is her same chronic abdominal pain. Decision to hold off on CT scan at this time due to amount of radiation. Due to the patient's allergies morphine is given. She states that she cannot take morphine. Abdomen has generalized tenderness and patient is guarding. There is some tightness to the abdomen. Alert and oriented x4. Speaks in full complete sentences. Patient is morbidly obese. Skin pink warm and dry. Patient denies chest pain, shortness of air, fever, vomiting, diarrhea, constipation, cough, dizziness, headache, syncope, numbness or tingling, vision changes, focal weakness. Patient Acute Abdominal Series shows: IMPRESSION: 1. No acute cardiopulmonary process. 2. Nonobstructive bowel gas pattern. Pending blood work. Dr Villagran taking over patient care at 2250. [] (MAKAYLA DURHAM APRN) Course & Med Decision Making 2300- Sign out received from Makayla HESTER for patient with acute on chronic abdominal pain. Pain/nausea previously addressed. AAS without acute process noted. Labs pending at time of sign out. Labs reviewed. Hypokalemia addressed. Patient seen and evaluated by myself. Patient stable for discharge with outpatient follow-up with PCP/GI. GI referral provided. Discussed findings and plan with patient, who acknowledges understanding and agreement. (CHRISTI VILLAGRAN DO) Vanessa Disclaimer: Vanessa Disclaimer: This electronic medical record was generated, in whole or in part, using a voice recognition dictation system. (MAKAYLA DURHAM APRN) Departure Departure Impression: Primary Impression: Chronic abdominal pain Additional Impression: Hypokalemia Disposition: 01 DC HOME SELF CARE/HOMELESS Condition: STABLE Referrals: Meagan ALVAREZ MD (PCP) HAKEEM CRUZ MD Patient Instructions: Abdominal Pain, Yffr-ti-Penm, Chronic Pain, Chronic Pain Management-Brief, Hypokalemia, Potassium Content of Foods Scripts Ondansetron (ONDANSETRON ODT) 4 Mg Tab.rapdis 1 TAB PO PRN Q6-8HRS PRN for NAUSEA, #16 TAB Prov: CHRISTI VILLAGRAN DO 05/28/20 Hyoscyamine Sulfate (LEVSIN-SL) 0.125 Mg Tab.subl 0.125 MG SL Q4-6HRS PRN for PAIN, #14 TAB Prov: CHRISTI VILLAGRAN DO 05/28/20 MAKAYLA DURHAM APRN May 27, 2020 21:30 CHRISTI VILLAGRAN DO May 28, 2020 00:27
[2020-05-27 22:12] LABS: BILIRUBIN,URINE NEGATIVE (NEG); CLARITY,URINE CLEAR; COLOR,URINE YELLOW; NITRITE,URINE NEGATIVE (NEG); PH,URINE 5.5 (<5.0-8.0); PROTEIN,URINE NEGATIVE (NEG-TRACE); UROBILINOGEN,URINE 0.2 mg/dL (0.2 mg/dL)
[2020-05-27 22:17] LABS: BACTERIA,URINE MANY /HPF (0-FEW); RBC,URINE 0 /HPF (0-2); WBC,URINE OCC /HPF (0-4)
--- NOTE | 2020-05-27 22:20 | RAD ---
Exam: Acute abdominal series INDICATION: Pain, nausea TECHNIQUE: Frontal view of the chest with upright and supine views of the abdomen Comparisons: None FINDINGS: The cardiomediastinal silhouette and pulmonary vessels are within normal limits. The lung and pleural spaces are clear. Air and stool are noted throughout the colon to level the rectum in a nonobstructive bowel gas pattern. No suspicious masses or calcifications. Visualized osseous structures are unremarkable. IMPRESSION: 1. No acute cardiopulmonary process. 2. Nonobstructive bowel gas pattern. Electronically signed by: Dolores Funes MD (05/27/2020 10:17 PM) RADHA
[2020-05-27] MEDS ORDERED: KETOROLAC 15 MG/ML VIAL. IVP ONE (23:45)
[2020-05-27 23:47] LABS: BASO # 0.1 x10^3/uL (0.0-0.2); BASO % 1 % (0-3); EOS # 0.2 x10^3/uL (0.0-0.7); EOS % 2 % (0-3); HEMATOCRIT 42.4 % (36.0-47.0); HEMOGLOBIN 14.4 g/dL (12.0-15.5); LYMPH # 4.6 x10^3/uL (1.0-4.8); LYMPH % 42 % (24-48); MEAN CORPUSCULAR HEMOGLOBIN 29 pg (25-35); MEAN CORPUSCULAR HGB CONC 34 g/dL (31-37); MEAN CORPUSCULAR VOLUME 86 fL (79-100); MONO # 0.7 x10^3/uL (0.0-1.1); MONO % 6 % (0-9); NEUT # 5.3 x10^3/uL (1.8-7.7); NEUT % 48 % (31-73); PLATELET COUNT 262 x10^3/uL (140-400); RED BLOOD COUNT 4.96 x10^6/uL (3.50-5.40); RED CELL DISTRIBUTION WIDTH 14.7 % (11.5-14.5); WHITE BLOOD COUNT 10.9 x10^3/uL (4.0-11.0)
[2020-05-27 23:55] LABS: PROTHROMBIN TIME PATIENT 21.2 SEC (11.7-14.0)
[2020-05-27 23:58] LABS: CALCIUM 8.8 mg/dL (8.5-10.1); CREATININE 0.9 mg/dL (0.6-1.0); GFR 62.1; POTASSIUM 3.3 mmol/L (3.5-5.1)
[2020-05-28 00:04] LABS: ALBUMIN 3.2 g/dL (3.4-5.0); ALBUMIN/GLOBULIN RATIO 0.9 (1.0-1.7); TOTAL BILIRUBIN 0.2 mg/dL (0.2-1.0); TOTAL PROTEIN 6.8 g/dL (6.4-8.2)
[2020-05-28] MEDS ORDERED: HYOS0.1265 SL (00:23)
[2020-05-28] MEDS ORDERED: ONDA4TAB12 PO (00:23)
[2020-05-28] MEDS ORDERED: POTASSIUM CHLORIDE 20 MEQ TABLET.ER. PO ONE (00:30)
[2020-05-28 01:00] VITALS: BP 189/69
[2020-05-28] MEDS ORDERED: MORPHINE SULFATE 4 MG/ML VIAL. IV ONE (01:00)
--- NOTE | 2020-05-29 05:46 | EKG ---
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
== END 2020-05-28 01:00 | disposition home or self-care (01) ==
LOC: ER 20:49
DX: G89.29 Other chronic pain (principal); R10.84 Generalized abdominal pain; E87.6 Hypokalemia; J44.9 Chronic obstructive pulmonary disease, unspecified; K21.9 Gastro-esophageal reflux disease without esophagitis; G43.909 Migraine, unspecified, not intractable, without status migrainosus; I11.9 Hypertensive heart disease without heart failure; E11.9 Type 2 diabetes mellitus without complications; Z86.718 Personal history of other venous thrombosis and embolism; Z90.49 Acquired absence of other specified parts of digestive tract; Z90.710 Acquired absence of both cervix and uterus; Z90.89 Acquired absence of other organs; Z98.890 Other specified postprocedural states; Z88.0 Allergy status to penicillin; Z88.2 Allergy status to sulfonamides; Z88.5 Allergy status to narcotic agent; Z88.8 Allergy status to other drugs, medicaments and biological substances
CPT/HCPCS: 36415; 74022; 80053; 81001; 83690; 84484; 85025; 85610; 87086; 93005; 96361; 96374; 96375; 96376; 99285; J1885; J2270; J7040

== ENCOUNTER 2020-06-16 21:41 | Emergency (ER) | payer BC, OTHER ==
[~2020-06-16] VITALS: Ht 165.1 cm; Wt 125.9 kg
[~2020-06-16 21:41] MED LIST changes: +INSU100V31 SQ; +LANS30CA PO; +NAPR-514 PO
[2020-06-16 22:14] LABS: BASO # 0.1 x10^3/uL (0.0-0.2); BASO % 1 % (0-3); EOS # 0.2 x10^3/uL (0.0-0.7); EOS % 2 % (0-3); HEMATOCRIT 39.6 % (36.0-47.0); HEMOGLOBIN 13.7 g/dL (12.0-15.5); LYMPH # 3.5 x10^3/uL (1.0-4.8); LYMPH % 38 % (24-48); MEAN CORPUSCULAR HEMOGLOBIN 30 pg (25-35); MEAN CORPUSCULAR HGB CONC 35 g/dL (31-37); MEAN CORPUSCULAR VOLUME 86 fL (79-100); MONO # 0.5 x10^3/uL (0.0-1.1); MONO % 5 % (0-9); NEUT # 4.9 x10^3/uL (1.8-7.7); NEUT % 54 % (31-73); PLATELET COUNT 266 x10^3/uL (140-400); RED BLOOD COUNT 4.62 x10^6/uL (3.50-5.40); RED CELL DISTRIBUTION WIDTH 14.4 % (11.5-14.5); WHITE BLOOD COUNT 9.1 x10^3/uL (4.0-11.0)
--- NOTE | 2020-06-16 22:15 | PHYS DOC ---
Past Medical History Past Medical History: Asthma, CAD, COPD, Diabetes-Type II, DVT, GERD, Hyp ertension, Migraines, UTI, Other Additional Past Medical Histor: PE, chronic back/abdominal pain,OBESITY Past Surgical History: Appendectomy, Cholecystectomy, Hysterectomy, Other Additional Past Surgical Histo: bilateral shoulders,hernia repair x's 7,bilateral cataracts,colon resection Smoking Status: Never Smoker Alcohol Use: None Drug Use: None General Adult EDM: Chief Complaint: ABDOMINAL PAIN HPI: HPI: Patient is a 70 year oldbqv-lzfc-lnz female who presents with 1 hour of nausea vomiting diarrhea. Patient also states she has right-sided abdominal discomfort. Patient states that she is got a history of SBO and her current symptoms feel similar. Review of Systems: Review of Systems: Constitutional: Denies fever or chills. [] Eyes: Denies change in visual acuity. [] HENT: Denies nasal congestion or sore throat. [] Respiratory: Denies cough or shortness of breath. [] Cardiovascular: Denies chest pain or edema. [] GI: Positive abdominal pain, nausea, vomiting, bloody stools : Denies dysuria. [] Musculoskeletal: Denies back pain or joint pain. [] Integument: Denies rash. [] Neurologic: Denies headache, focal weakness or sensory changes. [] Endocrine: Denies polyuria or polydipsia. [] Lymphatic: Denies swollen glands. [] Psychiatric: Denies depression or anxiety. [] Heart Score: Risk Factors: Risk Factors: DM, Current or recent (<one month) smoker, HTN, HLP, family history of CAD, obesity. Risk Scores: Score 0 - 3: 2.5% MACE over next 6 weeks - Discharge Home Score 4 - 6: 20.3% MACE over next 6 weeks - Admit for Clinical Observation Score 7 - 10: 72.7% MACE over next 6 weeks - Early Invasive Strategies Allergies: Allergies: Allergies Coded Allergies Type Severity Reaction Last Updated Verified Penicillins Allergy Severe itching, dry mouth, tongue swells 01/24/18 Yes Sulfa (Sulfonamide Antibiotics) Allergy Intermediate ITCHING DRY MOUTH, hives/swelling 12/16/15 Yes fentanyl Allergy Intermediate 12/16/15 Yes hydromorphone HCl Allergy Intermediate MORPHINE OK 12/16/15 Yes methylprednisolone Allergy Intermediate RED MAN SYNDROME 10/11/16 Yes prednisone Allergy Intermediate RED MED SYNDROME 10/11/16 Yes gluten Allergy Mild bloating 04/18/17 Yes I S O L A T I O N *CONTACT* Allergy Unknown 02/04/17 Yes oxycodone HCl Adverse Reaction Intermediate "i FEEL LIKE I HAVE WORMS IN ME" 12/16/15 Yes Physical Exam: PE: Constitutional: Well developed, well nourished, no acute distress, non-toxic appearance. [] HENT: Normocephalic, atraumatic, bilateral external ears normal, oropharynx moist, no oral exudates, nose normal. [] Eyes: PERRLA, EOMI, conjunctiva normal, no discharge. [] Neck: Normal range of motion, no tenderness, supple, no stridor. [] Cardiovascular:Heart rate regular rhythm, no murmur [] Lungs & Thorax: Bilateral breath sounds clear to auscultation [] Abdomen: Bowel sounds normal, soft, no tenderness, no masses, no pulsatile masses. [] Skin: Warm, dry, no erythema, no rash. [] Back: No tenderness, no CVA tenderness. [] Extremities: No tenderness, no cyanosis, no clubbing, ROM intact, no edema. [] Neurologic: Alert and oriented X 3, normal motor function, normal sensory function, no focal deficits noted. [] Psychologic: Affect normal, judgement normal, mood normal. [] EKG: EKG: [] Radiology/Procedures: Radiology/Procedures: [] Course & Med Decision Making: Course & Med Decision Making Pertinent Labs and Imaging studies reviewed. (See chart for details) [] Patient was evaluated chief complaint. Work-up consisted of laboratory analysis and radiologic imaging. Is also been discussed with patient. Treatment included morphine for pain. Patient without any episodes of vomiting or diarrhea in the department. Patient was discharged home. Dragon Disclaimer: [employer] Disclaimer: This electronic medical record was generated, in whole or in part, using a voice recognition dictation system. Departure Departure Impression: Primary Impression: Chronic abdominal pain Disposition: 01 DC HOME SELF CARE/HOMELESS Referrals: Meagan ALVAREZ MD (PCP) Patient Instructions: Abdominal Pain Scripts Hydrocodone/Apap 5-325 (NORCO 5-325 TABLET) 1 Each Tablet 1 TAB PO PRN Q6HRS PRN for PAIN, #10 TAB 0 Refills Prov: STELLARAMU VILLAGRAN DO 06/16/20 RAMU DOUGLAS DO Jun 16, 2020 22:14
[2020-06-16 22:22] LABS: CALCIUM 8.9 mg/dL (8.5-10.1); CREATININE 1.2 mg/dL (0.6-1.0); GFR 44.5; POTASSIUM 3.8 mmol/L (3.5-5.1)
[2020-06-16 22:28] LABS: ALBUMIN 3.1 g/dL (3.4-5.0); ALBUMIN/GLOBULIN RATIO 0.8 (1.0-1.7); TOTAL BILIRUBIN 0.2 mg/dL (0.2-1.0); TOTAL PROTEIN 6.8 g/dL (6.4-8.2)
--- NOTE | 2020-06-16 23:22 | RAD ---
INDICATION: Reason: Low abdominal pain / Spl. Instructions: / History: COMPARISON: May 27, 2020 IMPRESSION: Abdomen: 2 views obtained. Degenerative changes throughout the spine. Surgical clips right upper quadrant of the abdomen. There is some mild prominence of the folds within the colon. This is a questionable finding but would correlate with symptoms to ensure that this is not from colitis. 4 mm calcification projecting over the left renal region. Could be vascular in nature from calcific atherosclerosis. Electronically signed by: Maxx Tenorio MD (06/16/2020 11:19 PM) [id number]
[2020-06-16] MEDS ORDERED: MORPHINE SULFATE 2 MG/ML VIAL. IV ONE (23:45)
[2020-06-16] MEDS ORDERED: HYDR-3164 PO (23:56)
[2020-06-17 00:04] VITALS: BP 113/60
== END 2020-06-17 00:12 | disposition home or self-care (01) ==
LOC: ER 21:41
DX: G89.29 Other chronic pain (principal); R10.9 Unspecified abdominal pain; R11.2 Nausea with vomiting, unspecified; R19.7 Diarrhea, unspecified; J44.9 Chronic obstructive pulmonary disease, unspecified; I11.9 Hypertensive heart disease without heart failure; E11.9 Type 2 diabetes mellitus without complications; K21.9 Gastro-esophageal reflux disease without esophagitis; G43.909 Migraine, unspecified, not intractable, without status migrainosus; E66.9 Obesity, unspecified; Z68.42 Body mass index [BMI] 45.0-49.9, adult; Z86.718 Personal history of other venous thrombosis and embolism; Z90.89 Acquired absence of other organs; Z90.49 Acquired absence of other specified parts of digestive tract; Z90.710 Acquired absence of both cervix and uterus; Z98.890 Other specified postprocedural states; Z88.0 Allergy status to penicillin; Z88.2 Allergy status to sulfonamides; Z88.5 Allergy status to narcotic agent; Z88.8 Allergy status to other drugs, medicaments and biological substances
CPT/HCPCS: 36415; 74018; 80053; 83690; 85025; 96374; 99285; J2270

== ENCOUNTER 2020-06-22 17:48 | Emergency (ER) | payer BC, OTHER ==
[~2020-06-22] VITALS: Ht 165.1 cm; Wt 125.9 kg
[2020-06-22] MEDS ORDERED: IPRATRPIUM/ALBUTEROL 0.5/2.5MG 3 ML NEBU. NEB ONE (18:45)
[2020-06-22] MEDS ORDERED: methylPREDNISolone SOD SUCC PF 125 MG/2 ML VIAL. IV ONE (18:45)
[2020-06-22] MEDS ORDERED: ENALAPRILAT 2.5 MG/2 ML VIAL. IVP ONE (18:45)
[2020-06-22] MEDS ORDERED: diphenhydrAMINE 50 MG/ML VIAL IVP ONE (18:45)
--- NOTE | 2020-06-22 18:55 | PHYS DOC ---
Past Medical History Past Medical History: COPD, Diabetes-Type II, Other Additional Past Medical Histor: PE, chronic back/abdominal pain,OBESITY Past Surgical History: No Surgical History, Other Additional Past Surgical Histo: bilateral shoulders,hernia repair x's 7,bilateral cataracts,colon resection Smoking Status: Never Smoker Alcohol Use: None Drug Use: None General Adult EDM: Chief Complaint: SHORTNESS OF BREATH HPI: HPI: Patient is a 70 year old female history of asthma presented to ER with trouble breathing started this morning. Patient USED HER nebulizer treatment at home today but did not get better so she came here for evaluation. Patient denied any cough or fever, no chest pain... Patient denied any abdominal pain, no nausea or vomiting. Patient said she has all of her asthma medication at home. Patient said if we are going to give her solumedrol, we need to give her benadryl first so she does not have allergic reaction to it. Review of Systems: Review of Systems: Constitutional: Denies fever or chills. [] Eyes: Denies change in visual acuity. [] HENT: Denies nasal congestion or sore throat. [] Respiratory: Denies cough, positive for shortness of breath. [] Cardiovascular: Denies chest pain or edema. [] GI: Denies abdominal pain, nausea, vomiting, bloody stools or diarrhea. [] : Denies dysuria. [] Musculoskeletal: Denies back pain or joint pain. [] Integument: Denies rash. [] Neurologic: Denies headache, focal weakness or sensory changes. [] Endocrine: Denies polyuria or polydipsia. [] Lymphatic: Denies swollen glands. [] Psychiatric: Denies depression or anxiety. [] Heart Score: Risk Factors: Risk Factors: DM, Current or recent (<one month) smoker, HTN, HLP, family history of CAD, obesity. Risk Scores: Score 0 - 3: 2.5% MACE over next 6 weeks - Discharge Home Score 4 - 6: 20.3% MACE over next 6 weeks - Admit for Clinical Observation Score 7 - 10: 72.7% MACE over next 6 weeks - Early Invasive Strategies Current Medications: Current Medications Medications (Trade) Dose Ordered Sig/Irish Start Time Stop Time Status Last Admin Dose Admin Albuterol/ Ipratropium (Duoneb) 3 ml 1X ONCE 06/22/20 18:45 06/22/20 18:46 DC Diphenhydramine HCl (Benadryl) 25 mg 1X ONCE 06/22/20 18:45 06/22/20 18:46 DC Enalaprilat (Vasotec Inj) 2.5 mg 1X ONCE 06/22/20 18:45 06/22/20 18:46 DC Methylprednisolone Sodium Succinate (SOLU-Medrol 125MG VIAL) 125 mg 1X ONCE 06/22/20 18:45 06/22/20 18:46 DC Allergies: Allergies: Allergies Coded Allergies Type Severity Reaction Last Updated Verified Penicillins Allergy Severe itching, dry mouth, tongue swells 01/24/18 Yes Sulfa (Sulfonamide Antibiotics) Allergy Intermediate ITCHING DRY MOUTH, hives/swelling 12/16/15 Yes fentanyl Allergy Intermediate 12/16/15 Yes hydromorphone HCl Allergy Intermediate MORPHINE OK 12/16/15 Yes methylprednisolone Allergy Intermediate RED MAN SYNDROME 10/11/16 Yes prednisone Allergy Intermediate RED MED SYNDROME 10/11/16 Yes gluten Allergy Mild bloating 04/18/17 Yes I S O L A T I O N *CONTACT* Allergy Unknown 02/04/17 Yes oxycodone HCl Adverse Reaction Intermediate "i FEEL LIKE I HAVE WORMS IN ME" 12/16/15 Yes Physical Exam: PE: Constitutional: Well developed, well nourished, no acute distress, non-toxic appearance. [] HENT: Normocephalic, atraumatic, bilateral external ears normal, oropharynx moist, no oral exudates, nose normal. [] Eyes: PERRLA, EOMI, conjunctiva normal, no discharge. [] Neck: Normal range of motion, no tenderness, supple, no stridor. [] Cardiovascular:Heart rate regular rhythm, no murmur [] Lungs & Thorax: Bilateral breath sounds with expiratory wheezing... No respiratory distress. Abdomen: Bowel sounds normal, soft, no tenderness, no masses, no pulsatile masses. [] Skin: Warm, dry, no erythema, no rash. [] Back: No tenderness, no CVA tenderness. [] Extremities: No tenderness, no cyanosis, no clubbing, ROM intact, no edema. [] Neurologic: Alert and oriented X 3, normal motor function, normal sensory function, no focal deficits noted. [] Psychologic: Affect normal, judgement normal, mood normal. [] Current Patient Data: Vital Signs: Vital Signs Date Time Temp Pulse Resp B/P (MAP) Pulse Ox O2 Delivery O2 Flow Rate FiO2 06/22/20 18:21 97.2 116 20 199/121 (147) 97 Room Air 97.2 EKG: EKG: EKG was done at 1946, heart rate of 97 bpm, no ST segment elevation sinus rhythm Radiology/Procedures: Radiology/Procedures: [][facility] [address] [place] [address] IMAGING REPORT Signed PATIENT: ELY CARDOZA ACCOUNT: [id number] : 1950 LOCATION: ER AGE: 70 SEX: F EXAM STATUS: REG ER ORD. PHYSICIAN: VINOD BRITTON DO REASON: soa PROCEDURE: CHEST AP ONLY EXAM: CHEST 1 VIEW History: Shortness of breath COMPARISON: 06/02/2020 TECHNIQUE: Single portable radiograph of the chest FINDINGS: The cardiac silhouette is unremarkable. The lungs are clear bilaterally. The costophrenic sulci are clear and well demarcated. IMPRESSION: No radiographic evidence of an acute cardiopulmonary process. Electronically signed by: Moises Omer MD (06/22/2020 7:51 PM) [id number] DICTATED and SIGNED BY: MOISES OMER MD DATE: 06/22/201950 Course & Med Decision Making: Course & Med Decision Making Pertinent Labs and Imaging studies reviewed. (See chart for details) Patient is a 70-year-old female who presented to ER for evaluation of trouble breathing and wheezing. Patient was given nebulizer treatment and Solu-Medrol in the ER, she feels much better, her lung exam as time of discharge shows no wheezing. Patient was not in any respiratory distress, her oxygen saturation was 96% on room air. Her blood pressure was initially elevated, patient was given IV medication in the ER, her blood pressure improved significantly. Patient denies any chest pain, no cough, no fever. Patient will be discharged home, she will need to follow-up family physician this week for reevaluation. Patient is amenable to plan of care. Dragon Disclaimer: Dragon Disclaimer: This electronic medical record was generated, in whole or in part, using a voice recognition dictation system. Departure Departure Impression: Primary Impression: Asthma exacerbation Additional Impression: HTN (hypertension) Disposition: 01 DC HOME SELF CARE/HOMELESS Condition: IMPROVED Referrals: Meagan ALVAREZ MD (PCP) PLEASE CALL YOUR DOCTOR FOR FOLLOW UP THIS WEEK Patient Instructions: Asthma Attacks, Prevention, Asthma, Acute Bronchospasm, Hypertension Additional Instructions: Thank you for visiting our Emergency Department. We appreciate you trusting us with your care. If any additional problems come up don't hesitate to return to visit us. Please follow up with your primary care provider so they can plan additional care if needed and know about the problem that you had. If symptoms worsen come back to the Emergency Department. Any concerning symptoms that start such as chest pain, shortness of air, weakness or numbness on one side of the body, running high fevers or any other concerning symptoms return to the ER. VINOD BRITTON DO Jun 22, 2020 18:55
[2020-06-22 19:45] LABS: BASO # 0.1 x10^3/uL (0.0-0.2); BASO % 1 % (0-3); EOS # 0.2 x10^3/uL (0.0-0.7); EOS % 2 % (0-3); HEMATOCRIT 38.5 % (36.0-47.0); HEMOGLOBIN 13.4 g/dL (12.0-15.5); LYMPH # 3.9 x10^3/uL (1.0-4.8); LYMPH % 42 % (24-48); MEAN CORPUSCULAR HEMOGLOBIN 30 pg (25-35); MEAN CORPUSCULAR HGB CONC 35 g/dL (31-37); MEAN CORPUSCULAR VOLUME 85 fL (79-100); MONO # 0.5 x10^3/uL (0.0-1.1); MONO % 6 % (0-9); NEUT # 4.5 x10^3/uL (1.8-7.7); NEUT % 49 % (31-73); PLATELET COUNT 284 x10^3/uL (140-400); RED BLOOD COUNT 4.54 x10^6/uL (3.50-5.40); RED CELL DISTRIBUTION WIDTH 14.3 % (11.5-14.5); WHITE BLOOD COUNT 9.2 x10^3/uL (4.0-11.0)
--- NOTE | 2020-06-22 19:54 | RAD ---
EXAM: CHEST 1 VIEW History: Shortness of breath COMPARISON: 06/02/2020 TECHNIQUE: Single portable radiograph of the chest FINDINGS: The cardiac silhouette is unremarkable. The lungs are clear bilaterally. The costophrenic sulci are clear and well demarcated. IMPRESSION: No radiographic evidence of an acute cardiopulmonary process. Electronically signed by: Moises Omer MD (06/22/2020 7:51 PM) [id number]
[2020-06-22 19:56] LABS: PROTHROMBIN TIME PATIENT 27.8 SEC (11.7-14.0)
[2020-06-22 19:57] LABS: CALCIUM 8.8 mg/dL (8.5-10.1); CREATININE 0.8 mg/dL (0.6-1.0); GFR 71.1; POTASSIUM 3.7 mmol/L (3.5-5.1)
[2020-06-22 20:05] LABS: ALBUMIN 3.3 g/dL (3.4-5.0); ALBUMIN/GLOBULIN RATIO 0.9 (1.0-1.7); MAGNESIUM 1.8 mg/dL (1.8-2.4); TOTAL BILIRUBIN 0.2 mg/dL (0.2-1.0)
[2020-06-22 20:47] VITALS: BP 182/76
== END 2020-06-22 22:30 | disposition home or self-care (01) ==
LOC: ER 17:48
DX: J45.901 Unspecified asthma with (acute) exacerbation (principal); I10 Essential (primary) hypertension; J44.9 Chronic obstructive pulmonary disease, unspecified; E11.9 Type 2 diabetes mellitus without complications; E66.9 Obesity, unspecified; Z68.42 Body mass index [BMI] 45.0-49.9, adult; Z98.890 Other specified postprocedural states; Z88.0 Allergy status to penicillin; Z88.2 Allergy status to sulfonamides; Z88.5 Allergy status to narcotic agent; Z88.6 Allergy status to analgesic agent; Z88.8 Allergy status to other drugs, medicaments and biological substances
CPT/HCPCS: 36415; 71045; 80053; 83735; 83880; 84484; 85025; 85610; 85730; 93005; 96374; 96375; 99285; J1200; J2930; J3490

== ENCOUNTER → 2020-06-22 | Outpatient (CLI) | payer BC, OTHER ==
[2020-06-17 00:04] VITALS: BP 113/60
--- NOTE | 2020-06-22 15:28 | RAD ---
EXAM: Bilateral digital screening mammogram with tomosynthesis. HISTORY: 70-year-old female presents for screening mammography. TECHNIQUE: Full-field digital craniocaudal and mediolateral oblique 2D and 3D tomosynthesis images of both breasts are obtained for evaluation. Computer aided detection was not applied. COMPARISON: 02/11/2019 BREAST PARENCHYMAL DENSITY: Level B - Scattered fibroglandular densities. FINDINGS: There is no new suspicious mass, microcalcification or region of architectural distortion. There are stable areas of asymmetry and nodularity within both breasts. There are multiple benign calcifications. IMPRESSION: BI-RADS Category 2: Benign finding(s). RECOMMENDATION: Annual mammography is recommended. If your mammogram demonstrates that you have dense breast tissue, which could hide abnormalities, and if you have other risk factors for breast cancer that have been identified, you might benefit from supplemental screening tests that may be suggested by your ordering physician. Dense breast tissue, in and of itself, is a relatively common condition. This information is not provided to cause undue concern, but rather to raise your awareness and to promote discussion with your physician regarding the presence of other risk factors, in addition to dense breast tissue. A report of your mammography results will be sent to you and your physician. You should contact your physician if you have any questions or concerns regarding this report. Mammography is a sensitive method for finding small breast cancers, but it does not detect them all and is not a substitute for careful clinical examination. A negative mammogram does not negate a clinically suspicious finding and should not result in delay in biopsying a clinically suspicious abnormality. PQRS compliance statement - Patient information was entered into a reminder system with a target due date for the next mammogram. "Our facility is accredited by the [employer] Mammography Program." Electronically signed by: Mayra Ness MD (06/22/2020 3:26 PM) [id number]
== END ==
LOC: MAMMO 14:03
PROVIDERS: ATTEND Family Medicine
DX: Z12.31 Encounter for screening mammogram for malignant neoplasm of breast (principal)
CPT/HCPCS: 77063; 77067

== ENCOUNTER 2020-07-26 11:27 | Emergency (ER) | payer BC, OTHER ==
[~2020-07-26] VITALS: Ht 165.1 cm; Wt 126.8 kg
--- NOTE | 2020-07-26 13:21 | PHYS DOC ---
Past Medical History Past Medical History: COPD, Diabetes-Type II, Other Additional Past Medical Histor: PE, chronic back/abdominal pain,OBESITY Past Surgical History: No Surgical History, Other Additional Past Surgical Histo: bilateral shoulders,hernia repair x's 7,bilateral cataracts,colon resection Smoking Status: Never Smoker Alcohol Use: None Drug Use: None General Adult EDM: Chief Complaint: SHORTNESS OF BREATH HPI: HPI: Patient is a 70 year old female presents with 3-day history of shortness of breath. Patient has mild shortness of breath with exertion. Patient has had a headache off and on over the last couple days as well. Patient's granddaughter recently tested positive for COVID-19, and patient was around her about 5 days ago. Patient has any fevers chills or cough. Patient denies any chest pain. Symptoms are mild at rest and more moderate with exertion. Discomfort in her he ad is described as a throbbing pain. Review of Systems: Review of Systems: Constitutional: Denies fever or chills. [] Eyes: Denies change in visual acuity. [] HENT: Denies nasal congestion or sore throat. [] Respiratory: Denies cough but has had mild shortness of breath Cardiovascular: Denies chest pain or edema. [] GI: Denies abdominal pain, nausea, vomiting, bloody stools or diarrhea. [] : Denies dysuria. [] Musculoskeletal: Denies back pain or joint pain. [] Integument: Denies rash. [] Neurologic: Complains of headache but no, focal weakness or sensory changes. [] Endocrine: Denies polyuria or polydipsia. [] Lymphatic: Denies swollen glands. [] Psychiatric: Denies depression or anxiety. [] Heart Score: HEART Score for Chest Pain: HEART Score for Chest Pain Response (Comments) Value History Slighlty/Non-Suspicious 0 ECG Nonspecific Repolarizatio 1 Age > 65 2 Risk Factors 1 or 2 Risk Factors 1 Troponin < Normal Limit 0 Total 4 Risk Factors: Risk Factors: DM, Current or recent (<one month) smoker, HTN, HLP, family history of CAD, obesity. Risk Scores: Score 0 - 3: 2.5% MACE over next 6 weeks - Discharge Home Score 4 - 6: 20.3% MACE over next 6 weeks - Admit for Clinical Observation Score 7 - 10: 72.7% MACE over next 6 weeks - Early Invasive Strategies Current Medications: Current Medications Insulin Human Lispro (HumaLOG) 5 units 1X ONCE SQ ; Start 07/26/20 at 15:00; Stop 07/26/20 at 15:01 Active Scripts Active Hollywood 5-325 Tablet (Acetaminophen/Hydrocodone Bitart) 1 Each Tablet 1 Tab PO PRN Q6HRS PRN Lansoprazole 30 Mg Capsule. 1 Cap PO DAILY 30 Days Tramadol Hcl 50 Mg Tablet 50 Mg PO PRN Q6HRS PRN 6 Days Levsin-Sl (Hyoscyamine Sulfate) 0.125 Mg Tab.subl 0.125 Mg SL Q4-6HRS PRN Lisinopril 40 Mg Tablet 1 Tab PO DAILY Polyethylene Glycol 3350 17 Gm Powd.pack 17 Gm PO PRN DAILY PRN 30 Days Aspirin Ec (Aspirin) 81 Mg Tablet. 81 Mg PO DAILYWBKFT 30 Days Linzess (Linaclotide) 145 Mcg Capsule 145 Mcg PO DAILY07 30 Days Fish Oil 1,000 Mg Capsule (Jericho-3 Fatty Acids/Fish Oil) 1 Each Capsule 1,000 Mg PO DAILY 30 Days Reported Tylenol (Acetaminophen) 325 Mg Tablet 650 Mg PO PRN BID PRN Naproxen 500 Mg Tablet 500 Mg PO PRN BID PRN Zofran (Ondansetron Hcl) 4 Mg Tablet 4 Mg PO BID Metoprolol Succinate ( Xl ) (Metoprolol Succinate) 100 Mg Tab.er.24h 100 Mg PO DAILY Novolog (Insulin Aspart) 100 Unit/1 Ml Vial 20 Units SQ TID Lantus (Insulin Glargine,Hum.rec.anlog) 100 Unit/1 Ml Vial 36 Units SQ QHS Warfarin Sodium 10 Mg Tablet 10 Mg PO DAILY Vytorin 10-10 Mg Tablet (Ezetimibe/Simvastatin) 1 Each Tablet 1 Each PO HS Xopenex Hfa (Levalbuterol Tartrate) 15 Gm Hfa.aer.ad 15 Gm IH PRN BID PRN Spiriva (Tiotropium Lingle) 18 Mcg Cap.w.dev 18 Mcg IH DAILY Advair 250-50 Diskus (Fluticasone/Salmeterol) 1 Each Disk.w.dev 1 Each IH BID94 Cymbalta (Duloxetine Hcl) 60 Mg Capsule. 90 Mg PO DAILY Singulair Tablet (Montelukast Sodium) 10 Mg Tablet 10 Mg PO HS Allergies: Allergies: Allergies Coded Allergies Type Severity Reaction Last Updated Verified Penicillins Allergy Severe itching, dry mouth, tongue swells 01/24/18 Yes Sulfa (Sulfonamide Antibiotics) Allergy Intermediate ITCHING DRY MOUTH, hives/swelling 12/16/15 Yes fentanyl Allergy Intermediate 12/16/15 Yes hydromorphone HCl Allergy Intermediate MORPHINE OK 12/16/15 Yes methylprednisolone Allergy Intermediate RED MAN SYNDROME 10/11/16 Yes prednisone Allergy Intermediate RED MED SYNDROME 10/11/16 Yes gluten Allergy Mild bloating 04/18/17 Yes I S O L A T I O N *CONTACT* Allergy Unknown 02/04/17 Yes oxycodone HCl Adverse Reaction Intermediate "i FEEL LIKE I HAVE WORMS IN ME" 12/16/15 Yes Physical Exam: PE: Constitutional: Well developed, well nourished, no acute distress, non-toxic appearance. [] HENT: Normocephalic, atraumatic, bilateral external ears normal, oropharynx moist, no oral exudates, nose normal. [] Eyes: PERRLA, EOMI, conjunctiva normal, no discharge. [] Neck: Normal range of motion, no tenderness, supple, no stridor. [] Cardiovascular:Heart rate regular rhythm, no murmur [] Lungs & Thorax: Bilateral breath sounds clear to auscultation [] Abdomen: Bowel sounds normal, soft, no tenderness, no masses, no pulsatile masses. [] Skin: Warm, dry, no erythema, no rash. [] Back: No tenderness, no CVA tenderness. [] Extremities: No tenderness, no cyanosis, no clubbing, ROM intact, no edema. [] Neurologic: Alert and oriented X 3, normal motor function, normal sensory function, no focal deficits noted. [] Psychologic: Affect normal, judgement normal, mood normal. [] Current Patient Data: Labs: Laboratory Tests Test 07/26/20 13:27 White Blood Count 6.9 x10^3/uL Red Blood Count 4.57 x10^6/uL Hemoglobin 13.2 g/dL Hematocrit 38.9 % Mean Corpuscular Volume 85 fL Mean Corpuscular Hemoglobin 29 pg Mean Corpuscular Hemoglobin Concent 34 g/dL Red Cell Distribution Width 14.2 % Platelet Count 246 x10^3/uL Neutrophils (%) (Auto) 54 % Lymphocytes (%) (Auto) 37 % Monocytes (%) (Auto) 5 % Eosinophils (%) (Auto) 2 % Basophils (%) (Auto) 2 % Neutrophils # (Auto) 3.7 x10^3/uL Lymphocytes # (Auto) 2.6 x10^3/uL Monocytes # (Auto) 0.4 x10^3/uL Eosinophils # (Auto) 0.1 x10^3/uL Basophils # (Auto) 0.1 x10^3/uL Sodium Level 134 mmol/L Potassium Level 3.6 mmol/L Chloride Level 98 mmol/L Carbon Dioxide Level 29 mmol/L Anion Gap 7 Blood Urea Nitrogen 16 mg/dL Creatinine 0.9 mg/dL Estimated GFR (Cockcroft-Gault) 62.1 BUN/Creatinine Ratio 18 Glucose Level 401 mg/dL Calcium Level 8.6 mg/dL Magnesium Level 1.7 mg/dL Total Bilirubin 0.2 mg/dL Aspartate Amino Transf (AST/SGOT) 23 U/L Alanine Aminotransferase (ALT/SGPT) 25 U/L Alkaline Phosphatase 121 U/L Troponin I Quantitative < 0.017 ng/mL ZY-Eba-P-Type Natriuretic Peptide 338 pg/mL Total Protein 6.5 g/dL Albumin 3.0 g/dL Albumin/Globulin Ratio 0.9 Lipase 102 U/L Current Medications Medications (Trade) Dose Ordered Sig/Irish Route PRN Reason Start Time Stop Time Status Last Admin Dose Admin Insulin Human Lispro (HumaLOG) 5 units 1X ONCE SQ 07/26/20 15:00 07/26/20 15:01 Vital Signs: Vital Signs Date Time Temp Pulse Resp B/P (MAP) Pulse Ox O2 Delivery O2 Flow Rate FiO2 07/26/20 12:35 98.1 78 21 203/83 (123) 98 Room Air 98.1 EKG: EKG: EKG interpreted by me normal sinus rhythm with rate of 76 left axis deviation, left anterior hemiblock, nonspecific ST changes, normal intervals [] Radiology/Procedures: Radiology/Procedures: [][facility] [address] [place] [address] IMAGING REPORT Signed PATIENT: ELY CARDOZA ACCOUNT: [id number] : 1950 LOCATION: ER AGE: 70 SEX: F EXAM STATUS: REG ER ORD. PHYSICIAN: HAKEEM VERGARA MD REASON: CHEST PAIN PROCEDURE: PORTABLE CHEST 1V INDICATION: Reason: CHEST PAIN / Spl. Instructions: / History: COMPARISON: June 22, 2020 FINDINGS: Single view of chest obtained. Bilateral shoulder arthroplasty changes. Cardiac silhouette is similar to prior with mild calcific atherosclerosis. Repeat demonstration of probable calcified lung nodules. No definite new region of consolidation. IMPRESSION: * No focal airspace consolidation. Electronically signed by: Chantell De León MD (07/26/2020 1:54 PM) [id number] DICTATED and SIGNED BY: CHANTELL DE LEÓN MD DATE: 07/26/20 [id number] Course & Med Decision Making: Course & Med Decision Making Pertinent Labs and Imaging studies reviewed. (See chart for details) [] 70-year-old female presents with multiple complaints. Patient has had a headache for a few days as well as some mild shortness of breath. Patient is oxygen level is normal and is in no respiratory distress. Patient's not tachypneic on my exam and is able to communicate very easily. Patient has a known exposure to COVID-19 and daughter is here for similar symptoms. Patient's work-up is reassuring other than hyperglycemia and high blood pressure, patient states she did not take her meds this morning which is most likely resulting in these abnormalities. I clinically doubt she has a pulmonary embolism based on her presentation I think most likely her symptoms are due to her high blood pressure and concerns for COVID-19. Vanessa Disclaimer: Vanessa Disclaimer: This electronic medical record was generated, in whole or in part, using a voice recognition dictation system. Departure Departure Impression: Primary Impression: HTN (hypertension) Additional Impressions: Dyspnea Hyperglycemia Suspected COVID-19 virus infection Disposition: 01 DC HOME SELF CARE/HOMELESS Condition: STABLE Referrals: Meagan ALVAREZ MD (PCP) 2-3 days Patient Instructions: General Headache Without Cause, Hyperglycemia, Hypertension, Shortness of Breath Additional Instructions: EMERGENCY DEPARTMENT GENERAL DISCHARGE INSTRUCTIONS THANK YOU for coming to [facility] Emergency Department (ED) today and trusting us with your care. We trust that you had a positive experience in our Emergency Department. If you wish to speak to the department Management you can contact the produce department manager at . YOUR FOLLOW UP INSTRUCTIONS ARE FOLLOWS: Do you have a private doctor? If you do not have a private doctor, please ask for a resource list of physicians or clinics that may be able to assist you with follow up care. The Emergency Physician has interpreted your x-rays. The X-ray specialist will also review them. If there is a change in the findings you will be notified in 48 hours when at all possible. A lab test or lab culture may have been done, your results will be reviewed and you will be notified if you need a change in treatment. ADDITIONAL INSTRUCTIONS AND INFORMATION Your care today has been supervised by a physician who is specially trained in emergency care. Many problems require more than one evaluation for a complete diagnosis and treatment. We recommend that you schedule your follow up appointment as recommended to ensure complete treatment of your illness or injury. If you are unable to obtain follow up care and continue to have a problem, or if your condition worsens we recommend that you r eturn to the ED. We are not able to safely determine your condition over the phone nor are we able to give sound medical advice over the phone. For these safety reasons, if you call for medical advice we will ask you to come to the ED for further evaluation If you have any questions regarding these discharge instructions please call the ED at . SAFETY INFORMATION In the interest of safety, wellness, and injury prevention; we encourage you to wear your seatbelt, if you smoke; quit smoking, and we encourage your family to use protective helmet for bicycling and other sporting events that present an increased risk for head injury. IF YOUR SYMPTOMS WORSEN OR NEW SYMPTOMS DEVELOP, OR YOU HAVE CONCERNS ABOUT YOUR CONDITION; OR IF YOUR CONDITION WORSENS WHILE YOU ARE WAITING FOR YOUR FOLLOW UP APPOINTMENT; EITHER CONTACT YOUR PRIMARY CARE DOCTOR, THE PHYSICIAN WHOSE NAME AND NUMBER YOU WERE GIVEN, OR RETURN TO THE ED IMMEDIATELY. You have been tested for or diagnosed with COVID-19. It is an infection caused by a new type of coronavirus. COVID-19 will cause cold-like or mild flu symptoms in most. It can cause more severe symptoms like problems breathing in some. There is no treatment for COVID-19. The body will clear the infection over time. Self-care will help to ease discomfort. Steps to Take: Self-Care Rest as needed. Healthy habits may help you feel better. Steps include: Choose healthy foods including fruits and vegetables. Drink water throughout the day. Get plenty of sleep each night. If you smoke, try to quit. It may ease breathing. Avoid alcohol. Keep Others Healthy The virus can spread to others. Droplets are released every time you sneeze or cough. The droplets can get into the mouth, nose, or eyes of people near you and lead to infection. To lower the chances of spreading COVID-19 to others: Stay at home until your doctor has said it is safe to leave. If you tested positive this will mean staying isolated until both of the following are true: At least 7 days have passed since the start of illness. You are free of fever for at least 72 hours without the use of medicine. During this time: - Avoid public areas, events, or transportation. Do not return to work or school until your doctor has said it is safe to do so. - Call ahead if you need to go to a medical center. Let them know you may have COVID-19. It will help them guide you where to go. They may also ask you to wear a facemask when you come to the office. - If you call for emergency medical services, let them know you may have COVID- 19. While at home: - Try to avoid close contact with others. Stay about 6 feet away. - If possible, spend most of your time in a separate room from others. - Use a face mask if you will be in close contact with others such as sharing a room or vehicle. - Have someone wipe down common surfaces in the home. Use household heel varnisher every day on areas like doorknobs, counters, or sinks. - Cough or sneeze into a tissue. Throw the tissue away right after use. If a tissue is not available, cough or sneeze into your elbow. - Wash your hands often. Wash them after sneezing or coughing. Use soap and water and wash for at least 20 seconds. Alcohol based hand photo mask cleaner can be used if soap and water is not available. - Do not prepare food for others. Avoid sharing personal items like forks, spoons, or toothbrushes. - Avoid close contact with pets while you are sick. There is no evidence of the virus passing to pets. This is a safety step until more is known about this virus. Isolation can be frustrating. Social interaction can help. Keep in touch with friends and family through phone and tech options. You can still interact with others in your home, just keep a safe distance of about 6 feet. Follow-up: Your doctors office will check in with you to see if there are any changes in your health. You may be asked to keep track of symptoms to share with them. They will also let you know when you are clear to be in public again. Problems to Look Out For: Contact your doctor if your recovery is not going as you expect. Get emergency care if you have problems such as: - Trouble breathing - Nonstop chest pain or pressure - Changes in awareness, confusion, or problems waking - Lips or face have bluish color - Worsening of symptoms If you think you have an emergency, call for emergency medical services right away. As taken from [facility] HAKEEM VERGARA MD Jul 26, 2020 13:21
[2020-07-26 13:42] LABS: BASO # 0.1 x10^3/uL (0.0-0.2); BASO % 2 % (0-3); EOS # 0.1 x10^3/uL (0.0-0.7); EOS % 2 % (0-3); HEMATOCRIT 38.9 % (36.0-47.0); HEMOGLOBIN 13.2 g/dL (12.0-15.5); LYMPH # 2.6 x10^3/uL (1.0-4.8); LYMPH % 37 % (24-48); MEAN CORPUSCULAR HEMOGLOBIN 29 pg (25-35); MEAN CORPUSCULAR HGB CONC 34 g/dL (31-37); MEAN CORPUSCULAR VOLUME 85 fL (79-100); MONO # 0.4 x10^3/uL (0.0-1.1); MONO % 5 % (0-9); NEUT # 3.7 x10^3/uL (1.8-7.7); NEUT % 54 % (31-73); PLATELET COUNT 246 x10^3/uL (140-400); RED BLOOD COUNT 4.57 x10^6/uL (3.50-5.40); RED CELL DISTRIBUTION WIDTH 14.2 % (11.5-14.5); WHITE BLOOD COUNT 6.9 x10^3/uL (4.0-11.0)
[2020-07-26 13:49] LABS: CALCIUM 8.6 mg/dL (8.5-10.1); CREATININE 0.9 mg/dL (0.6-1.0); GFR 62.1; POTASSIUM 3.6 mmol/L (3.5-5.1)
[2020-07-26 13:56] LABS: ALBUMIN/GLOBULIN RATIO 0.9 (1.0-1.7); MAGNESIUM 1.7 mg/dL (1.8-2.4); TOTAL BILIRUBIN 0.2 mg/dL (0.2-1.0); TOTAL PROTEIN 6.5 g/dL (6.4-8.2)
--- NOTE | 2020-07-26 13:57 | RAD ---
INDICATION: Reason: CHEST PAIN / Spl. Instructions: / History: COMPARISON: June 22, 2020 FINDINGS: Single view of chest obtained. Bilateral shoulder arthroplasty changes. Cardiac silhouette is similar to prior with mild calcific atherosclerosis. Repeat demonstration of probable calcified lung nodules. No definite new region of consolidation. IMPRESSION: * No focal airspace consolidation. Electronically signed by: Maxx Tenorio MD (07/26/2020 1:54 PM) [id number]
[2020-07-26] MEDS ORDERED: INSULIN LISPRO 300 UNITS/3 ML VIAL. SQ ONE (15:00)
[2020-07-26 15:30] VITALS: BP 179/72
--- NOTE | 2020-07-27 17:56 | NUR ---
IP: Informed pt of negative COVID test. Pt verbalized understanding.
== END 2020-07-26 15:42 | disposition home or self-care (01) ==
LOC: ER 11:27
DX: I10 Essential (primary) hypertension (principal); R06.02 Shortness of breath; E11.65 Type 2 diabetes mellitus with hyperglycemia; Z20.828 Contact with and (suspected) exposure to other viral communicable diseases; J44.9 Chronic obstructive pulmonary disease, unspecified; E66.9 Obesity, unspecified; Z68.42 Body mass index [BMI] 45.0-49.9, adult; Z88.0 Allergy status to penicillin; Z88.2 Allergy status to sulfonamides; Z88.4 Allergy status to anesthetic agent; Z88.5 Allergy status to narcotic agent; Z91.041 Radiographic dye allergy status; Z88.8 Allergy status to other drugs, medicaments and biological substances
CPT/HCPCS: 36415; 71045; 80053; 82962; 83690; 83735; 83880; 84484; 85025; 96372; 99285; C9803; J1815; U0003

== ENCOUNTER 2020-11-18 14:36 | Emergency (ER) | payer BC, OTHER ==
[~2020-11-18] VITALS: Ht 172.7 cm; Wt 100.0 kg
[~2020-11-18 14:36] MED LIST changes: -CLIN150C14 PO; +CLIN150C15 PO; -LISI-334 PO; +LISI20TA18 PO; -POLY17PO28 PO; +POLY17PO52 PO
[2020-11-18] MEDS ORDERED: IV NORMAL SALINE 500ML BAG 500 ML IV ONE (14:45)
[2020-11-18] MEDS ORDERED: methylPREDNISolone SOD SUCC PF 125 MG/2 ML VIAL. IV ONE (14:45)
[2020-11-18] MEDS ORDERED: ALBUTEROL SULFATE 2.5 MG/3 ML NEBU. CONT NEB ONE (14:45)
[2020-11-18] MEDS ORDERED: diphenhydrAMINE 50 MG/ML VIAL IVP ONE (14:45)
[2020-11-18] MEDS ORDERED: IPRATRPIUM/ALBUTEROL 0.5/2.5MG 3 ML NEBU. NEB ONE (14:45)
[2020-11-18] MEDS ORDERED: MAGNESIUM SULFATE 1GM 100 ML IV ONE (14:45)
--- NOTE | 2020-11-18 15:05 | RAD ---
AP chest. HISTORY: Asthma, history of pneumonia AP view was taken of the chest. Lungs are free of infiltrates. Heart is normal in size. There is no e ffusion. There is a calcified granuloma on the left. IMPRESSION: 1. No acute chest disease. Electronically signed by: Ralph De La Cruz MD (11/18/2020 3:03 PM) [id number]
--- NOTE | 2020-11-18 15:25 | ED.ADGEN ---
Past Medical History Past Medical History: COPD, Diabetes-Type II, Other Additional Past Medical Histor: PE, chronic back/abdominal pain,OBESITY Past Surgical History: No Surgical History, Other Additional Past Surgical Histo: bilateral shoulders,hernia repair x's 7,bilateral cataracts,colon resection Smoking Status: Never Smoker Alcohol Use: None Drug Use: None General Adult EDM: Chief Complaint: ASTHMA HPI: HPI: Patient is a 70 year old female coming in for asthma exacerbation. Patient is a history of asthma with frequent exacerbations. Symptoms started today, did not respond to her home nebulizer. Review of Systems: Review of Systems: All other systems within normal limits except for as noted in the HPI Current Medications: Current Medications Medications (Trade) Dose Ordered Sig/Irish Start Time Stop Time Status Last Admin Dose Admin Albuterol Sulfate (Ventolin Neb Soln) 10 mg 1X ONCE 11/18/20 14:45 11/18/20 14:47 DC 11/18/20 14:55 10 MG Albuterol/ Ipratropium (Duoneb) 3 ml 1X ONCE 11/18/20 14:45 11/18/20 14:47 DC 11/18/20 14:53 3 ML Diphenhydramine HCl (Benadryl) 50 mg 1X ONCE 11/18/20 14:45 11/18/20 14:47 DC 11/18/20 15:29 50 MG Magnesium Sulfate/ Dextrose 100 ml @ 100 mls/hr 1X ONCE 11/18/20 14:45 11/18/20 15:44 DC 11/18/20 15:28 100 MLS/HR Methylprednisolone Sodium Succinate (SOLU-Medrol 125MG VIAL) 125 mg 1X ONCE 11/18/20 14:45 11/18/20 14:47 DC 11/18/20 15:29 125 MG Sodium Chloride 500 ml @ 500 mls/hr 1X ONCE 11/18/20 14:45 11/18/20 15:44 DC 11/18/20 15:28 500 MLS/HR Allergies: Allergies: Allergies Coded Allergies Type Severity Reaction Last Updated Verified Penicillins Allergy Severe itching, dry mouth, tongue swells 01/24/18 Yes Sulfa (Sulfonamide Antibiotics) Allergy Intermediate ITCHING DRY MOUTH, hives/swelling 12/16/15 Yes fentanyl Allergy Intermediate 12/16/15 Yes hydromorphone HCl Allergy Intermediate MORPHINE OK 12/16/15 Yes methylprednisolone Allergy Intermediate RED MAN SYNDROME 10/11/16 Yes prednisone Allergy Intermediate RED MED SYNDROME 10/11/16 Yes gluten Allergy Mild bloating 04/18/17 Yes I S O L A T I O N *CONTACT* Allergy Unknown 02/04/17 Yes oxycodone HCl Adverse Reaction Intermediate "i FEEL LIKE I HAVE WORMS IN ME" 12/16/15 Yes Physical Exam: PE: Constitutional: Well developed, well nourished, moderate acute distress, non- toxic appearance. [] HENT: Normocephalic, atraumatic, bilateral external ears normal, nose normal. [] Eyes: PERRLA, conjunctiva normal, no discharge. [] Neck: No rigidity, supple, no stridor. [] Cardiovascular: Tachycardic, regular rhythm, brisk cap refill [] Lungs & Thorax: Tachypnea, symmetric chest rise, bilateral decreased breath sounds with wheezing Abdomen: Soft, nondistended. Skin: Warm, dry, no erythema, no rash. [] Back: Unremarkable Extremities: No deformities, range of motion grossly intact, no lower extremity edema [] Neurologic: Alert and oriented X 3, no focal deficits noted. [] Psychologic: Affect normal, judgement normal, mood normal. [] Current Patient Data: Labs: Laboratory Tests Test 11/18/20 15:21 White Blood Count 9.7 x10^3/uL (4.0-11.0) Red Blood Count 4.68 x10^6/uL (3.50-5.40) Hemoglobin 13.4 g/dL (12.0-15.5) Hematocrit 40.0 % (36.0-47.0) Mean Corpuscular Volume 86 fL (79-100) Mean Corpuscular Hemoglobin 29 pg (25-35) Mean Corpuscular Hemoglobin Concent 34 g/dL (31-37) Red Cell Distribution Width 14.7 % (11.5-14.5) H Platelet Count 244 x10^3/uL (140-400) Neutrophils (%) (Auto) 47 % (31-73) Lymphocytes (%) (Auto) 45 % (24-48) Monocytes (%) (Auto) 6 % (0-9) Eosinophils (%) (Auto) 2 % (0-3) Basophils (%) (Auto) 1 % (0-3) Neutrophils # (Auto) 4.5 x10^3/uL (1.8-7.7) Lymphocytes # (Auto) 4.4 x10^3/uL (1.0-4.8) Monocytes # (Auto) 0.6 x10^3/uL (0.0-1.1) Eosinophils # (Auto) 0.2 x10^3/uL (0.0-0.7) Basophils # (Auto) 0.0 x10^3/uL (0.0-0.2) Laboratory Tests 11/18/20 15:21 Vital Signs: Vital Signs Date Time Temp Pulse Resp B/P (MAP) Pulse Ox O2 Delivery O2 Flow Rate FiO2 11/18/20 15:08 96 Nasal Cannula 2.0 11/18/20 14:55 97.5 113 20 169/86 (113) 97.5 EKG: EKG: [] Heart Score: C/O Chest Pain: N/A Risk Factors: Risk Factors: DM, Current or recent (<one month) smoker, HTN, HLP, family history of CAD, obesity. Risk Scores: Score 0 - 3: 2.5% MACE over next 6 weeks - Discharge Home Score 4 - 6: 20.3% MACE over next 6 weeks - Admit for Clinical Observation Score 7 - 10: 72.7% MACE over next 6 weeks - Early Invasive Strategies Radiology/Procedures: Radiology/Procedures: AP chest. HISTORY: Asthma, history of pneumonia AP view was taken of the chest. Lungs are free of infiltrates. Heart is normal in size. There is no effusion. There is a calcified granuloma on the left. IMPRESSION: 1. No acute chest disease.[] Course & Med Decision Making: Course & Med Decision Making Pertinent Labs and Imaging studies reviewed. (See chart for details) Greatly improved with nebulizer, steroids and magnesium. [] Dragon Disclaimer: Dragon Disclaimer: This electronic medical record was generated, in whole or in part, using a voice recognition dictation system. Departure Departure Impression: Primary Impression: Acute asthma exacerbation Disposition: 01 DC HOME SELF CARE/HOMELESS Condition: STABLE Referrals: Meagan ALVAREZ MD (PCP) Patient Instructions: Asthma Attacks, Prevention Scripts Diphenhydramine Hcl (DIPHENHYDRAMINE HCL) 50 Mg Capsule 1 CAP PO PRN Q6-8HRS PRN for ALLERGIC REACTION for 10 Days, #30 CAP 1 Refill Prov: GABRIELA WEBB MD 11/18/20 Prednisone (PREDNISONE) 50 Mg Tablet 1 TAB PO DAILY for steroid for 5 Days, #5 TAB Prov: GABRIELA WEBB MD 11/18/20 GABRIELA WEBB MD Nov 18, 2020 15:25
[2020-11-18 16:16] LABS: BASO % 1 % (0-3); EOS # 0.2 x10^3/uL (0.0-0.7); EOS % 2 % (0-3); HEMOGLOBIN 13.4 g/dL (12.0-15.5); LYMPH # 4.4 x10^3/uL (1.0-4.8); LYMPH % 45 % (24-48); MEAN CORPUSCULAR HEMOGLOBIN 29 pg (25-35); MEAN CORPUSCULAR HGB CONC 34 g/dL (31-37); MEAN CORPUSCULAR VOLUME 86 fL (79-100); MONO # 0.6 x10^3/uL (0.0-1.1); MONO % 6 % (0-9); NEUT # 4.5 x10^3/uL (1.8-7.7); NEUT % 47 % (31-73); PLATELET COUNT 244 x10^3/uL (140-400); RED BLOOD COUNT 4.68 x10^6/uL (3.50-5.40); RED CELL DISTRIBUTION WIDTH 14.7 % (11.5-14.5); WHITE BLOOD COUNT 9.7 x10^3/uL (4.0-11.0)
[2020-11-18 16:33] LABS: CALCIUM 8.3 mg/dL (8.5-10.1); CREATININE 1.2 mg/dL (0.6-1.0); GFR 44.5; POTASSIUM 3.9 mmol/L (3.5-5.1)
[2020-11-18] MEDS ORDERED: DIPH50CA PO (16:37)
[2020-11-18] MEDS ORDERED: PRED50TA PO (16:37)
[2020-11-18 16:39] LABS: ALBUMIN 3.2 g/dL (3.4-5.0); MAGNESIUM 1.6 mg/dL (1.8-2.4); TOTAL BILIRUBIN 0.3 mg/dL (0.2-1.0); TOTAL PROTEIN 6.3 g/dL (6.4-8.2)
[2020-11-18 16:50] VITALS: BP 167/69
== END 2020-11-18 16:35 | disposition home or self-care (01) ==
LOC: ER 14:36
DX: J45.901 Unspecified asthma with (acute) exacerbation (principal); E11.9 Type 2 diabetes mellitus without complications; J44.9 Chronic obstructive pulmonary disease, unspecified; E66.9 Obesity, unspecified; Z68.33 Body mass index [BMI] 33.0-33.9, adult; Z88.0 Allergy status to penicillin; Z88.2 Allergy status to sulfonamides; Z88.4 Allergy status to anesthetic agent; Z88.5 Allergy status to narcotic agent; Z91.041 Radiographic dye allergy status
CPT/HCPCS: 36415; 71045; 80053; 83735; 84484; 85025; 94640; 94644; 96365; 96375; 99285; J1200; J2930; J3475; J7040; J7613

== ENCOUNTER 2020-11-18 23:34 | Emergency (ER) | payer BC, OTHER ==
[~2020-11-18] VITALS: Ht 165.1 cm; Wt 127.0 kg
[~2020-11-18 23:34] MED LIST changes: +DIPH50CA PO
[2020-11-19 00:30] LABS: BASO # 0.1 x10^3/uL (0.0-0.2); BASO % 1 % (0-3); EOS % 0 % (0-3); HEMOGLOBIN 14.2 g/dL (12.0-15.5); LYMPH # 1.5 x10^3/uL (1.0-4.8); LYMPH % 11 % (24-48); MEAN CORPUSCULAR HEMOGLOBIN 28 pg (25-35); MEAN CORPUSCULAR HGB CONC 33 g/dL (31-37); MEAN CORPUSCULAR VOLUME 86 fL (79-100); MONO # 0.1 x10^3/uL (0.0-1.1); MONO % 1 % (0-9); NEUT # 11.8 x10^3/uL (1.8-7.7); NEUT % 88 % (31-73); PLATELET COUNT 280 x10^3/uL (140-400); RED CELL DISTRIBUTION WIDTH 14.9 % (11.5-14.5); WHITE BLOOD COUNT 13.5 x10^3/uL (4.0-11.0)
[2020-11-19 00:46] LABS: ALBUMIN 3.3 g/dL (3.4-5.0); ALBUMIN/GLOBULIN RATIO 0.8 (1.0-1.7); CALCIUM 8.8 mg/dL (8.5-10.1); CREATININE 1.3 mg/dL (0.6-1.0); GFR 40.6; POTASSIUM 3.9 mmol/L (3.5-5.1); TOTAL BILIRUBIN 0.4 mg/dL (0.2-1.0); TOTAL PROTEIN 7.6 g/dL (6.4-8.2)
[2020-11-19] MEDS ORDERED: INSULIN REGULAR 100 UNIT/ML 3ML VIAL. IV ONE (01:00)
[2020-11-19 01:27] LABS: BILIRUBIN,URINE NEGATIVE (NEG); CLARITY,URINE CLEAR; COLOR,URINE YELLOW; NITRITE,URINE NEGATIVE (NEG); PH,URINE 5.5 (<5.0-8.0); PROTEIN,URINE 30 mg/dL (NEG-TRACE); UROBILINOGEN,URINE 0.2 mg/dL (0.2 mg/dL)
[2020-11-19 01:38] LABS: BACTERIA,URINE FEW /HPF (0-FEW); RBC,URINE OCC /HPF (0-2); WBC,URINE OCC /HPF (0-4)
[2020-11-19] MEDS ORDERED: MORPHINE SULFATE 4 MG/ML VIAL. IV ONE (02:00)
[2020-11-19] MEDS ORDERED: IV NORMAL SALINE 1000ML BAG 1,000 ML IV ONE ×2 (02:00)
[2020-11-19 02:40] VITALS: BP 216/108
--- NOTE | 2020-11-19 02:55 | PHYS DOC ---
Past Medical History Past Medical History: COPD, Diabetes-Type II, Other Additional Past Medical Histor: PE, chronic back/abdominal pain,OBESITY Past Surgical History: No Surgical History, Other Additional Past Surgical Histo: bilateral shoulders,hernia repair x's 7,bilateral cataracts,colon resection Smoking Status: Never Smoker Alcohol Use: None Drug Use: None General Adult EDM: Chief Complaint: MULTIPLE COMPLAINTS HPI: HPI: Patient is a 70 year old female past medical history diabetes and asthma presents for evaluation of hyperglycemia and continued shortness of breath. Patient was seen in the emergency department early this evening. Patient received Solu-Medrol and breathing treatments with improvement. Patient states prior to arrival glucose machine read high. Fingerstick glucose showed greater than 500. On exam patient's lungs were clear she was in no respiratory distress oxygen saturation 99% on room air. Review of Systems: Review of Systems: Review of systems: Constitutional symptoms- No fever, no chills. Eyes- No Discharge, No Visual Loss Respiratory symptoms-positive shortness of breath, positive wheezing, No Dyspnea on Exertion Cardiovascular Systems; No chest pain, No Palpitations, No syncope Gastrointestinal symptoms: NO abdominal pain, no nausea, no vomiting or diarrhea. Genitourinary symptoms: No dysuria. Musculoskeletal symptoms: No back pain No extremity pain. NEUROLOGICAL Symptoms: No headache, no generalized weakness; No focal Weakness Endocrine positive hyperglycemia Heart Score: C/O Chest Pain: N/A Risk Factors: Risk Factors: DM, Current or recent (<one month) smoker, HTN, HLP, family history of CAD, obesity. Risk Scores: Score 0 - 3: 2.5% MACE over next 6 weeks - Discharge Home Score 4 - 6: 20.3% MACE over next 6 weeks - Admit for Clinical Observation Score 7 - 10: 72.7% MACE over next 6 weeks - Early Invasive Strategies Current Medications: Current Medications Medications (Trade) Dose Ordered Sig/Irish Start Time Stop Time Status Last Admin Dose Admin Insulin Human Regular (HumuLIN R VIAL) 10 unit 1X ONCE 11/19/20 01:00 11/19/20 01:01 DC 11/19/20 01:42 10 UNIT Morphine Sulfate (Morphine Sulfate) 4 mg 1X ONCE 11/19/20 02:00 11/19/20 02:01 DC 11/19/20 02:06 4 MG Sodium Chloride 1,000 ml @ 1,000 mls/hr 1X ONCE 11/19/20 02:00 11/19/20 02:59 11/19/20 01:55 1,000 MLS/HR Allergies: Allergies: Allergies Coded Allergies Type Severity Reaction Last Updated Verified Penicillins Allergy Severe itching, dry mouth, tongue swells 01/24/18 Yes Sulfa (Sulfonamide Antibiotics) Allergy Intermediate ITCHING DRY MOUTH, hives/swelling 12/16/15 Yes fentanyl Allergy Intermediate 12/16/15 Yes hydromorphone HCl Allergy Intermediate MORPHINE OK 12/16/15 Yes methylprednisolone Allergy Intermediate RED MAN SYNDROME 10/11/16 Yes prednisone Allergy Intermediate RED MED SYNDROME 10/11/16 Yes gluten Allergy Mild bloating 04/18/17 Yes I S O L A T I O N *CONTACT* Allergy Unknown 02/04/17 Yes oxycodone HCl Adverse Reaction Intermediate "i FEEL LIKE I HAVE WORMS IN ME" 12/16/15 Yes Physical Exam: PE: Constitutional: Well developed, well nourished, no acute distress, non-toxic appearance. [] HENT: Normocephalic, atraumatic, bilateral external ears normal, oropharynx moist, no oral exudates, nose normal. [] Eyes: PERRLA, EOMI, conjunctiva normal, no discharge. [] Neck: Normal range of motion, no tenderness, supple, no stridor. [] Cardiovascular:Heart rate regular rhythm, no murmur [] Lungs & Thorax: Bilateral breath sounds clear to auscultation [] Abdomen: Bowel sounds normal, soft, no tenderness, no masses, no pulsatile masses. [] Skin: Warm, dry, no erythema, no rash. [] Back: No tenderness, no CVA tenderness. [] Extremities: No tenderness, no cyanosis, no clubbing, ROM intact, no edema. [] Neurologic: Alert and oriented X 3, normal motor function, normal sensory function, no focal deficits noted. [] Psychologic: Affect normal, judgement normal, mood normal. [] Current Patient Data: Labs: Laboratory Tests Test 11/18/20 23:48 11/19/20 00:20 11/19/20 01:16 Glucose (Fingerstick) 524 mg/dL (70-99) *H White Blood Count 13.5 x10^3/uL (4.0-11.0) H Red Blood Count 5.00 x10^6/uL (3.50-5.40) Hemoglobin 14.2 g/dL (12.0-15.5) Hematocrit 43.0 % (36.0-47.0) Mean Corpuscular Volume 86 fL (79-100) Mean Corpuscular Hemoglobin 28 pg (25-35) Mean Corpuscular Hemoglobin Concent 33 g/dL (31-37) Red Cell Distribution Width 14.9 % (11.5-14.5) H Platelet Count 280 x10^3/uL (140-400) Neutrophils (%) (Auto) 88 % (31-73) H Lymphocytes (%) (Auto) 11 % (24-48) L Monocytes (%) (Auto) 1 % (0-9) Eosinophils (%) (Auto) 0 % (0-3) Basophils (%) (Auto) 1 % (0-3) Neutrophils # (Auto) 11.8 x10^3/uL (1.8-7.7) H Lymphocytes # (Auto) 1.5 x10^3/uL (1.0-4.8) Monocytes # (Auto) 0.1 x10^3/uL (0.0-1.1) Eosinophils # (Auto) 0.0 x10^3/uL (0.0-0.7) Basophils # (Auto) 0.1 x10^3/uL (0.0-0.2) Platelet Estimate Pending Sodium Level 130 mmol/L (136-145) L Potassium Level 3.9 mmol/L (3.5-5.1) Chloride Level 94 mmol/L (98-107) L Carbon Dioxide Level 21 mmol/L (21-32) Anion Gap 15 (6-14) H Blood Urea Nitrogen 19 mg/dL (7-20) Creatinine 1.3 mg/dL (0.6-1.0) H Estimated GFR (Cockcroft-Gault) 40.6 BUN/Creatinine Ratio 15 (6-20) Glucose Level 512 mg/dL (70-99) *H Calcium Level 8.8 mg/dL (8.5-10.1) Total Bilirubin 0.4 mg/dL (0.2-1.0) Aspartate Amino Transferase (AST) 18 U/L (15-37) Alanine Aminotransferase (ALT) 26 U/L (14-59) Alkaline Phosphatase 128 U/L (46-116) H Total Protein 7.6 g/dL (6.4-8.2) Albumin 3.3 g/dL (3.4-5.0) L Albumin/Globulin Ratio 0.8 (1.0-1.7) L Urine Collection Type Unknown Urine Color Yellow Urine Clarity Clear Urine pH 5.5 (<5.0-8.0) Urine Specific [place] 1.020 (1.000-1.030) Urine Protein 30 mg/dL (NEG-TRACE) Urine Glucose (UA) >=1000 mg/dL (NEG) Urine Ketones (Stick) 15 mg/dL (NEG) Urine Blood Negative (NEG) Urine Nitrite Negative (NEG) Urine Bilirubin Negative (NEG) Urine Urobilinogen Dipstick 0.2 mg/dL (0.2 mg/dL) Urine Leukocyte Esterase Negative (NEG) Urine RBC Occ /HPF (0-2) Urine WBC Occ /HPF (0-4) Urine Squamous Epithelial Cells Few /LPF Urine Bacteria Few /HPF (0-FEW) Laboratory Tests 11/19/20 00:20 Laboratory Tests 11/19/20 00:20 Vital Signs: Vital Signs Date Time Temp Pulse Resp B/P (MAP) Pulse Ox O2 Delivery O2 Flow Rate FiO2 11/19/20 02:06 96 Room Air 11/19/20 01:40 102 20 227/91 (136) 11/18/20 23:34 98.5 98.5 EKG: EKG: [] Radiology/Procedures: Radiology/Procedures: [] Course & Med Decision Making: Course & Med Decision Making Pertinent Labs and Imaging studies reviewed. (See chart for details) [] Patient was evaluated for chief complaint. Work-up consisted of laboratory a nalysis. Patient did have a blood sugar greater than 500. CO2 within normal limits patient did have 5 ketones in her urine. Treatment included 10 units of insulin and 2 L of IV fluids. Prior to discharge patient's blood sugars in the 350s. Patient's lungs were clear in no respiratory distress. Patient advised to continue monitoring blood sugars and taking her prescribed insulin medications. Dragon Disclaimer: Dragon Disclaimer: This electronic medical record was generated, in whole or in part, using a voice recognition dictation system. Departure Departure Impression: Primary Impression: Hyperglycemia, drug-induced Disposition: 01 DC HOME SELF CARE/HOMELESS Condition: STABLE Referrals: Meagan ALVAREZ MD (PCP) Patient Instructions: Hyperglycemia RAMU DOUGLAS DO Nov 19, 2020 02:55
[2020-11-19 04:42] LABS: % BANDS 1 % (0-9); % LYMPHS 11 % (24-48); % MONOS 1 % (0-10); % SEGS 87 % (35-66); PLT ESTIMATE ADEQUATE (ADEQUATE)
== END 2020-11-19 03:08 | disposition home or self-care (01) ==
LOC: ER 23:34
DX: E09.65 Drug or chemical induced diabetes mellitus with hyperglycemia (principal); J44.9 Chronic obstructive pulmonary disease, unspecified; E66.9 Obesity, unspecified; Z68.42 Body mass index [BMI] 45.0-49.9, adult; Z88.0 Allergy status to penicillin; Z88.4 Allergy status to anesthetic agent; Z88.5 Allergy status to narcotic agent; Z91.041 Radiographic dye allergy status; Z88.8 Allergy status to other drugs, medicaments and biological substances
CPT/HCPCS: 36415; 80053; 81001; 82962; 85007; 85025; 96361; 96374; 96375; 99284; J1815; J2270; J7030; 99285-25

== ENCOUNTER 2021-04-21 20:47 | Emergency (ER) | payer MEDICARE, OTHER ==
[~2021-04-21 20:47] MED LIST changes: -CLIN150C15 PO; +CLIN150C16 PO
== END 2021-04-21 21:46 | disposition left against medical advice (07) ==
LOC: ER 20:47
DX: M25.512 Pain in left shoulder (principal); Z53.21 Procedure and treatment not carried out due to patient leaving prior to being seen by health care provider

== ENCOUNTER 2021-04-28 14:03 | Emergency (ER) | payer MEDICARE, OTHER ==
[~2021-04-28] VITALS: Ht 165.1 cm; Wt 125.9 kg
[2021-04-28] MEDS ORDERED: ONDANSETRON PF 4 MG/2 ML VIAL. IVP ONE (15:30)
[2021-04-28] MEDS ORDERED: MORPHINE SULFATE 4 MG/ML INJ. IVP ONE (15:30)
--- NOTE | 2021-04-28 15:32 | PHYS DOC ---
Past Medical History Past Medical History: COPD, Diabetes-Type II, Other Additional Past Medical Histor: PE, chronic back/abdominal pain,OBESITY Past Surgical History: No Surgical History, Other Additional Past Surgical Histo: bilateral shoulders,hernia repair x's 7,bilateral cataracts,colon resection Smoking Status: Never Smoker Alcohol Use: None Drug Use: None General Adult EDM: Chief Complaint: ABDOMINAL PAIN HPI: HPI: Patient is a 70 year old female who presents with 4 days of left lower quadrant abdominal pain. Also complains of nausea over the same timeframe that is worse than her chronic nausea. She also has chronic abdominal pain, but states that this is very different. No fevers or chills. Has not vomited. Has been taking Zofran at home. She has had loose stools. Last BM yesterday. No blood in stools. No history of diverticulitis or diverticulosis to her knowledge. Extensive surgical history includes multiple hernia repairs, cholecystectomy, appendectomy, total hysterectomy. Review of Systems: Review of Systems: Constitutional: Denies fever or chills. [] Eyes: Denies change in visual acuity. [] HENT: Denies nasal congestion or sore throat. [] Respiratory: Denies cough or shortness of breath. [] Cardiovascular: Denies chest pain or edema. [] GI: Reports abdominal pain, nausea, loose stools. Denies vomiting. Denies bloody stools or melena. [] : Denies dysuria. [] Musculoskeletal: Denies back pain or joint pain. [] Integument: Denies rash. [] Neurologic: Denies headache, focal weakness or sensory changes. [] Endocrine: Denies polyuria or polydipsia. [] Lymphatic: Denies swollen glands. [] Psychiatric: Denies depression or anxiety. [] Heart Score: C/O Chest Pain: No Risk Factors: Risk Factors: DM, Current or recent (<one month) smoker, HTN, HLP, family history of CAD, obesity. Risk Scores: Score 0 - 3: 2.5% MACE over next 6 weeks - Discharge Home Score 4 - 6: 20.3% MACE over next 6 weeks - Admit for Clinical Observation Score 7 - 10: 72.7% MACE over next 6 weeks - Early Invasive Strategies Allergies: Allergies: Allergies Coded Allergies Type Severity Reaction Last Updated Verified Penicillins Allergy Severe itching, dry mouth, tongue swells 01/24/18 Yes Sulfa (Sulfonamide Antibiotics) Allergy Intermediate ITCHING DRY MOUTH, hives/swelling 12/16/15 Yes fentanyl Allergy Intermediate 12/16/15 Yes hydromorphone HCl Allergy Intermediate MORPHINE OK 12/16/15 Yes methylprednisolone Allergy Intermediate RED MAN SYNDROME 10/11/16 Yes prednisone Allergy Intermediate RED MED SYNDROME 10/11/16 Yes gluten Allergy Mild bloating 04/18/17 Yes I S O L A T I O N *CONTACT* Allergy Unknown 02/04/17 Yes oxycodone HCl Adverse Reaction Intermediate "i FEEL LIKE I HAVE WORMS IN ME" 12/16/15 Yes Physical Exam: PE: Constitutional: Well developed, well nourished, no acute distress, non-toxic appearance. [] HENT: Normocephalic, atraumatic, bilateral external ears normal, oropharynx moist, no oral exudates, nose normal. [] Eyes: PERRLA, EOMI, conjunctiva normal, no discharge. [] Neck: Normal range of motion, no tenderness, supple, no stridor. [] Cardiovascular:Heart rate regular rhythm, no murmur [] Lungs & Thorax: Bilateral breath sounds clear to auscultation [] Abdomen: Soft. Multiple surgical scars. Diffuse tenderness to palpation with guarding and rebound tenderness. Worst in left lower quadrant. [] Skin: Warm, dry, no erythema, no rash. [] Back: No tenderness, no CVA tenderness. [] Extremities: No tenderness, no cyanosis, no clubbing, ROM intact, no edema. [] Neurologic: Alert and oriented X 3, normal motor function, normal sensory function, no focal deficits noted. [] Psychologic: Affect normal, judgement normal, mood normal. [] EKG: EKG: [] Radiology/Procedures: Radiology/Procedures: [] Impression: [facility] [address] [place], [place] [id number] IMAGING REPORT Signed PATIENT: ELY CARDOZA ACCOUNT: [id number] : 1950 LOCATION: ER AGE: 70 SEX: F EXAM STATUS: REG ER ORD. PHYSICIAN: ZACH WOOD MD REASON: LLQ pain, guarding on exam PROCEDURE: CT ABD PELV W/ IV CONTRST ONLY EXAMINATION: CT abdomen and pelvis with IV contrast. INDICATION:70 years, Female, left lower quadrant abdominal pain. TECHNIQUE: Axial CT images of the abdomen and pelvis were obtained. Coronal and sagittal reformatted performed. COMPARISON: 01/02/2020. Exposure: One or more of the following individualized dose reduction techniques were utilized for this examination: 1. Automated exposure control 2. Adjustment of the mA and/or kV according to patient size 3. Use of iterative reconstruction technique. FINDINGS: LOWER CHEST: Unremarkable ABDOMEN/PELVIS: Mild hepatomegaly measures up to 19 cm in length. No suspicious focal hepatic lesion. Cholecystectomy. No biliary ductal dilation. Calcified granuloma in the spleen. Mildly atrophic pancreatic parenchyma. No adrenal nodule. No hydronephrosis or nephrolithiasis in either kidney. Subcentimeter hypodensity in the lower pole left kidney, too small to characterize. No bowel obstruction or wall thickening. Few colonic diverticulosis without diverticulitis. Appendix is not seen with certainty. No lymphadenopathy in the abdomen or pelvis by size criteria. No pneumoperitoneum or ascites. Mild aortoiliac atherosclerotic calcifications, without significant narrowing or dilatation. Mesenteric arteries and portal vein are patent. Unremarkable urinary bladder. Hysterectomy. No suspicious pelvic masses. MUSCULOSKELETAL: Postsurgical changes of ventral herniorrhaphy with mesh. Small fat-containing bilateral inguinal and umbilical hernias. Multifocal fat stranding in the anterior abdominal wall, may relate to injection medication. No acute osseous process. Multilevel degenerative changes in the spine. IMPRESSION: 1. No acute abnormality in the abdomen or pelvis. 2. Other chronic/incidental findings, as described above. Electronically signed by: Henrry Valencia MD (04/28/2021 5:00 PM) [id number] DICTATED and SIGNED BY: HENRRY VALENCIA MD DATE: 04/28/21 [id number] Course & Med Decision Making: Course & Med Decision Making Pertinent Labs and Imaging studies reviewed. (See chart for details) Patient is 70-year-old female with extensive surgical history who presents with 4 days of left lower quadrant pain, nausea, and loose stools. Was sent in by PCP for concern for diverticulitis. On exam she is diffusely tender with rebound and guarding. We will obtain labs and CT imaging. Analgesics and antiemetics provided. 1531 CT shows no acute process. Labs are benign. We will asked that she follows up with her PCP for further evaluation. Return precautions discussed. [id number] Vanessa Disclaimer: Vanessa Disclaimer: This electronic medical record was generated, in whole or in part, using a voice recognition dictation system. Departure Departure Impression: Primary Impression: Left lower quadrant abdominal pain Disposition: HOME / SELF CARE / HOMELESS Condition: STABLE Referrals: Meagan ALVAREZ MD (PCP) Schedule appointment for early next week. Patient Instructions: Abdominal Pain Additional Instructions: Your CT scan did not show any findings that would cause your pain. Your labs looked okay. I would like you to follow-up with your primary care doctor early next week. Continue to take your home medications to treat your symptoms as prescribed. If you develop high fevers, shaking chills, vomiting, or worsening pain please return to the emergency department for reevaluation at any time ZACH WOOD MD Apr 28, 2021 15:32
[2021-04-28 15:35] LABS: BILIRUBIN,URINE NEGATIVE (NEG); CLARITY,URINE CLEAR; COLOR,URINE YELLOW; NITRITE,URINE NEGATIVE (NEG); PH,URINE 6.5 (<5.0-8.0); PROTEIN,URINE 100 mg/dL (NEG-TRACE)
[2021-04-28 16:03] LABS: BACTERIA,URINE MANY /HPF (0-FEW)
[2021-04-28 16:07] LABS: BASO % 0 % (0-3); EOS # 0.2 x10^3/uL (0.0-0.7); EOS % 2 % (0-3); HEMATOCRIT 40.7 % (36.0-47.0); HEMOGLOBIN 13.8 g/dL (12.0-15.5); LYMPH % 33 % (24-48); MEAN CORPUSCULAR HEMOGLOBIN 29 pg (25-35); MEAN CORPUSCULAR HGB CONC 34 g/dL (31-37); MEAN CORPUSCULAR VOLUME 84 fL (79-100); MONO # 0.5 x10^3/uL (0.0-1.1); MONO % 6 % (0-9); NEUT # 5.4 x10^3/uL (1.8-7.7); NEUT % 59 % (31-73); PLATELET COUNT 305 x10^3/uL (140-400); RED BLOOD COUNT 4.83 x10^6/uL (3.50-5.40); RED CELL DISTRIBUTION WIDTH 14.8 % (11.5-14.5); WHITE BLOOD COUNT 9.1 x10^3/uL (4.0-11.0)
[2021-04-28 16:16] LABS: CALCIUM 8.8 mg/dL (8.5-10.1); CREATININE 0.9 mg/dL (0.6-1.0); GFR 62.1; POTASSIUM 3.9 mmol/L (3.5-5.1)
[2021-04-28 16:22] LABS: ALBUMIN 2.9 g/dL (3.4-5.0); ALBUMIN/GLOBULIN RATIO 0.7 (1.0-1.7); TOTAL BILIRUBIN 0.3 mg/dL (0.2-1.0); TOTAL PROTEIN 6.8 g/dL (6.4-8.2)
[2021-04-28] MEDS ORDERED: CONTRAST GIVEN. MC PRN (16:30)
[2021-04-28] MEDS ORDERED: IOHEXOL 300 MG/ML 100ML VIAL. IV ONE (16:30)
--- NOTE | 2021-04-28 17:02 | RAD ---
EXAMINATION: CT abdomen and pelvis with IV contrast. INDICATION:70 years, Female, left lower quadrant abdominal pain. TECHNIQUE: Axial CT images of the abdomen and pelvis were obtained. Coronal and sagittal reformatted performed. COMPARISON: 01/02/2020. Exposure: One or more of the following individualized dose reduction techniques were utilized for thi s examination: 1. Automated exposure control 2. Adjustment of the mA and/or kV according to patient size 3. Use of iterative reconstruction technique. FINDINGS: LOWER CHEST: Unremarkable ABDOMEN/PELVIS: Mild hepatomegaly measures up to 19 cm in length. No suspicious focal hepatic lesion. Cholecystectomy . No biliary ductal dilation. Calcified granuloma in the spleen. Mildly atrophic pancreatic parenchym a. No adrenal nodule. No hydronephrosis or nephrolithiasis in either kidney. Subcentimeter hypodensit y in the lower pole left kidney, too small to characterize. No bowel obstruction or wall thickening. Few colonic diverticulosis without diverticulitis. Appendix is not seen with certainty. No lymphadenopathy in the abdomen or pelvis by size criteria. No pneumope ritoneum or ascites. Mild aortoiliac atherosclerotic calcifications, without significant narrowing or dilatation. Mesenteric arteries and portal vein are patent. Unremarkable urinary bladder. Hysterecto my. No suspicious pelvic masses. MUSCULOSKELETAL: Postsurgical changes of ventral herniorrhaphy with mesh. Small fat-containing bilateral inguinal and umbilical hernias. Multifocal fat stranding in the anterior abdominal wall, may relate to injection m edication. No acute osseous process. Multilevel degenerative changes in the spine. IMPRESSION: 1. No acute abnormality in the abdomen or pelvis. 2. Other chronic/incidental findings, as described above. Electronically signed by: Salvador Valencia MD (04/28/2021 5:00 PM) [id number]
[2021-04-28 17:51] VITALS: BP 155/67
== END 2021-04-28 18:00 | disposition home or self-care (01) ==
LOC: ER 14:03
DX: R10.32 Left lower quadrant pain (principal); G89.29 Other chronic pain; R11.0 Nausea; R19.7 Diarrhea, unspecified; E11.9 Type 2 diabetes mellitus without complications; J44.9 Chronic obstructive pulmonary disease, unspecified; Z88.0 Allergy status to penicillin; Z88.2 Allergy status to sulfonamides; Z88.4 Allergy status to anesthetic agent; Z88.5 Allergy status to narcotic agent; Z91.041 Radiographic dye allergy status; Z88.8 Allergy status to other drugs, medicaments and biological substances
CPT/HCPCS: 36415; 74177; 80053; 81001; 85025; 96374; 96375; 99284; J2270; J2405; Q9967; A4565

== ENCOUNTER 2021-06-19 14:13 | Emergency (ER) | payer MEDICARE, OTHER ==
[~2021-06-19] VITALS: Ht 165.1 cm; Wt 128.0 kg
[~2021-06-19 14:13] MED LIST changes: +CYCL10TA19 PO; -CYCL10TA2 PO; +DICY20TA PO; -DICY20TA3 PO; -DIPH50CA PO; +DIPH50CA16 PO; -DULO60CA6 PO; +DULO60CA7 PO
--- NOTE | 2021-06-19 14:59 | PHYS DOC ---
Past Medical History Past Medical History: COPD, Diabetes-Type II, Other Additional Past Medical Histor: PE, chronic back/abdominal pain,OBESITY,SLEEP APNEA,BOWEL OBSTRUCTION Past Surgical History: Appendectomy, Cholecystectomy, Hysterectomy, Oophorectomy, Other Additional Past Surgical Histo: bilateral shoulders,hernia repair x's 7,bilateral cataracts,colon resection Smoking Status: Never Smoker Alcohol Use: None Drug Use: None General Adult EDM: Chief Complaint: BACK PAIN - NO INJURY HPI: HPI: Patient is a 71 year old who presents with chronic low back pain, which she has had since 1980. No changes reported today. No fall, trauma or acute injury. No radiation of pain, no lower extremity pain. No numbness, tingling, motor weakness. She has chronic abdominal pain at her old incision site, which is unchanged, times many decades. No urinary symptoms reported. No stool or urine incontinence reported. No fevers or chills. No chest pain, dyspnea, dizziness, nausea or vomiting reported. She has reportedly been out of her hydrocodone for 2 months. She has a scheduled appointment to see her primary care physician later this month. She has not reportedly taken any [id number] medications to help with this pain. She does report that muscle exercise also helped in the past, she reports that she feels that she has previously successfully taken Norflex. Review of Systems: Review of Systems: Constitutional: Denies fever or chills. [] HENT: Denies nasal congestion or sore throat. [] Respiratory: Denies cough or shortness of breath. [] Cardiovascular: Denies chest pain or edema. [] GI: Denies abdominal pain, nausea, vomiting, bloody stools or diarrhea. [] : Denies dysuria. [] Musculoskeletal: Chronic back pain, unchanged. Integument: Denies rash. [] Neurologic: Denies headache, focal weakness or sensory changes. [] Endocrine: Denies polyuria or polydipsia. [] Lymphatic: Denies swollen glands. [] Psychiatric: Chronic mood disturbance, unchanged. [] Heart Score: C/O Chest Pain: No Risk Factors: Risk Factors: DM, Current or recent (<one month) smoker, HTN, HLP, family history of CAD, obesity. Risk Scores: Score 0 - 3: 2.5% MACE over next 6 weeks - Discharge Home Score 4 - 6: 20.3% MACE over next 6 weeks - Admit for Clinical Observation Score 7 - 10: 72.7% MACE over next 6 weeks - Early Invasive Strategies Allergies: Allergies: Allergies Coded Allergies Type Severity Reaction Last Updated Verified Penicillins Allergy Severe itching, dry mouth, tongue swells 01/24/18 Yes Sulfa (Sulfonamide Antibiotics) Allergy Intermediate ITCHING DRY MOUTH, hives/swelling 12/16/15 Yes fentanyl Allergy Intermediate 12/16/15 Yes hydromorphone HCl Allergy Intermediate MORPHINE OK 12/16/15 Yes methylprednisolone Allergy Intermediate RED MAN SYNDROME 10/11/16 Yes prednisone Allergy Intermediate RED MED SYNDROME 10/11/16 Yes gluten Allergy Mild bloating 04/18/17 Yes I S O L A T I O N *CONTACT* Allergy Unknown 02/04/17 Yes oxycodone HCl Adverse Reaction Intermediate "i FEEL LIKE I HAVE WORMS IN ME" 12/16/15 Yes Physical Exam: PE: Constitutional: Well developed, well nourished, no acute distress, non-toxic appearance. [] HENT: Normocephalic, atraumatic Neck: Trachea is midline Cardiovascular:Heart rate regular rhythm, +2 radial and posterior tibial pulses bilaterally Lungs & Thorax: Bilateral breath sounds clear to auscultation [] Skin: Warm, dry, no erythema, no rash. [] Back: No deformity, no midline tenderness or step-offs, full range of motion, no CVA tenderness Extremities: No tenderness, no cyanosis, no clubbing, ROM intact, no edema. No calf tenderness. Neurologic: Alert and oriented X 3, normal motor function, normal sensory function, no focal deficits noted. [] Psychologic: Slightly anxious, cooperative. [] EKG: EKG: [] Radiology/Procedures: Radiology/Procedures: [] Course & Med Decision Making: Course & Med Decision Making There is no indication for emergent imaging or invasive exams or labs at this time. She is given 1 dose of p.o. [place] prior to discharge. I explained that s he must obtain any further refills of pain medications from her primary care physician, and I recommend she keep her scheduled appointment later this month. I discussed strict return precautions for return to the ER. She verbalizes understanding of instructions given. Return precautions are given. Vanessa Disclaimer: Vanessa Disclaimer: This electronic medical record was generated, in whole or in part, using a voice recognition dictation system. Departure Departure Impression: Primary Impression: Chronic back pain Qualified Codes: M54.9 - Dorsalgia, unspecified; G89.29 - Other chronic pain Disposition: 01 HOME / SELF CARE / HOMELESS Condition: STABLE Referrals: Meagan ALVAREZ MD (PCP) Patient Instructions: Back Pain, Adult, Chronic Back Pain Additional Instructions: Use the medication as directed/as needed. You must obtain all further pain medication refills from your primary care physician. Return to the ER for acute injury, trauma, acute changes in pain, motor weakness, incontinence, fever 100.4 or higher, severe abdominal pain, vomiting, dehydration, or other concerns. Follow-up with your doctor at your schedule appointment later this month. Scripts Hydrocodone Bit/Acetaminophen (HYDROCODONE-APAP 5-325 ) 1 Tab Tablet 1 TAB PO PRN Q6HRS PRN for PAIN, #4 TAB 0 Refills Prov: RICCO REDDY DO 06/19/21 Orphenadrine Citrate (ORPHENADRINE CITRATE) 100 Mg Tablet.er 1 TAB PO BID for muscle spasm, #14 TAB 1 Refill Prov: RICCO REDDY DO 06/19/21 RICCO REDDY DO Jun 19, 2021 14:59
[2021-06-19 15:03] VITALS: BP 229/87
[2021-06-19] MEDS ORDERED: ORPH100T PO (15:12)
[2021-06-19] MEDS ORDERED: HYDR-2761 PO (15:13)
[2021-06-19] MEDS ORDERED: HYDROcodone/APAP 5/325MG 1 TAB TABLET PO ONE (15:15)
== END 2021-06-19 15:20 | disposition home or self-care (01) ==
LOC: ER 14:13
DX: G89.29 Other chronic pain (principal); M54.50 Low back pain, unspecified; J44.9 Chronic obstructive pulmonary disease, unspecified; E11.9 Type 2 diabetes mellitus without complications; Z90.89 Acquired absence of other organs; Z90.49 Acquired absence of other specified parts of digestive tract; Z90.710 Acquired absence of both cervix and uterus; Z90.722 Acquired absence of ovaries, bilateral; Z88.0 Allergy status to penicillin; Z88.2 Allergy status to sulfonamides; Z88.4 Allergy status to anesthetic agent; Z88.5 Allergy status to narcotic agent; Z91.041 Radiographic dye allergy status; Z88.8 Allergy status to other drugs, medicaments and biological substances
CPT/HCPCS: 99283

== ENCOUNTER 2021-06-21 17:04 | Emergency (ER) | payer MEDICARE, OTHER ==
[~2021-06-21] VITALS: Ht 165.1 cm; Wt 128.6 kg
[2021-06-21 18:05] LABS: BILIRUBIN,URINE NEGATIVE (NEG); CLARITY,URINE CLEAR; COLOR,URINE YELLOW; NITRITE,URINE NEGATIVE (NEG); PROTEIN,URINE 30 mg/dL (NEG-TRACE); UROBILINOGEN,URINE 0.2 mg/dL (0.2 mg/dL)
[2021-06-21 18:12] LABS: BARBITURATES NEG (NEG); BENZODIAZEPINES NEG (NEG); CANNABINOIDS NEG (NEG); COCAINE NEG (NEG); METHADONE NEG (NEG); OPIATES NEG (NEG); PHENCYCLIDINE NEG (NEG)
--- NOTE | 2021-06-21 18:12 | PHYS DOC ---
Past Medical History Past Medical History: COPD, Diabetes-Type II, Other Additional Past Medical Histor: PE, chronic back/abdominal pain,OBESITY,SLEEP APNEA,BOWEL OBSTRUCTION Past Surgical History: Appendectomy, Cholecystectomy, Hysterectomy, Oophorectomy, Other Additional Past Surgical Histo: bilateral shoulders,hernia repair x's 7,bilateral cataracts,colon resection Smoking Status: Never Smoker Alcohol Use: None Drug Use: None General Adult EDM: Chief Complaint: SUICDAL IDEATION HPI: HPI: Patient is a 71 year old female with a history of diabetes type 2, hypertension, on Coumadin for PEs who presents to the ED today to be evaluated for suicidal ideation. Patient states her daughter on May 05, 2021 from COVID-19. She states she has been doing well and receiving therapy from the PCPs counselor. She states today she could not handle the pressure and she broke down. She states she thought of killing herself by taking all her warfarin. She states she could not kill herself because she will not go to [facility]. Patient denies any homicidal ideations. She is very tearful. She was placed on 1:1 care Review of Systems: Review of Systems: Constitutional: Denies fever or chills. [] Eyes: Denies change in visual acuity. [] HENT: Denies nasal congestion or sore throat. [] Respiratory: Denies cough or shortness of breath. [] Cardiovascular: Denies chest pain or edema. [] GI: Denies abdominal pain, nausea, vomiting, bloody stools or diarrhea. [] : Denies dysuria. [] Musculoskeletal: Denies back pain or joint pain. [] Integument: Denies rash. [] Neurologic: Denies headache, focal weakness or sensory changes. [] Psychiatric: Reports suicidal ideation Heart Score: C/O Chest Pain: N/A Risk Factors: Risk Factors: DM, Current or recent (<one month) smoker, HTN, HLP, family history of CAD, obesity. Risk Scores: Score 0 - 3: 2.5% MACE over next 6 weeks - Discharge Home Score 4 - 6: 20.3% MACE over next 6 weeks - Admit for Clinical Observation Score 7 - 10: 72.7% MACE over next 6 weeks - Early Invasive Strategies Allergies: Allergies: Allergies Coded Allergies Type Severity Reaction Last Updated Verified Penicillins Allergy Severe itching, dry mouth, tongue swells 01/24/18 Yes Sulfa (Sulfonamide Antibiotics) Allergy Intermediate ITCHING DRY MOUTH, hives/swelling 12/16/15 Yes fentanyl Allergy Intermediate 12/16/15 Yes hydromorphone HCl Allergy Intermediate MORPHINE OK 12/16/15 Yes methylprednisolone Allergy Intermediate RED MAN SYNDROME 10/11/16 Yes prednisone Allergy Intermediate RED MED SYNDROME 10/11/16 Yes gluten Allergy Mild bloating 04/18/17 Yes I S O L A T I O N *CONTACT* Allergy Unknown 02/04/17 Yes oxycodone HCl Adverse Reaction Intermediate "i FEEL LIKE I HAVE WORMS IN ME" 12/16/15 Yes Physical Exam: PE: Constitutional: Well developed, well nourished, no acute distress, non-toxic appearance. [] HENT: Normocephalic, atraumatic, bilateral external ears normal, oropharynx moist, no oral exudates, nose normal. [] Eyes: PERRLA, EOMI, conjunctiva normal, no discharge. [] Neck: Normal range of motion, no tenderness, supple, no stridor. [] Cardiovascular:Heart rate regular rhythm, no murmur [] Lungs & Thorax: Bilateral breath sounds clear to auscultation [] Abdomen: Bowel sounds normal, soft, no tenderness, no masses, no pulsatile masses. [] Skin: Warm, dry, no erythema, no rash. [] Back: No tenderness, no CVA tenderness. [] Extremities: No tenderness, no cyanosis, no clubbing, ROM intact, no edema. [] Neurologic: Alert and oriented X 3, normal motor function, normal sensory function, no focal deficits noted. [] Psychologic: Flat affect, very tearful, crying incoherently Current Patient Data: Vital Signs: Vital Signs Date Time Temp Pulse Resp B/P (MAP) Pulse Ox O2 Delivery O2 Flow Rate FiO2 06/21/21 17:30 82 18 211/95 (133) 98 Room Air 06/21/21 17:13 98.5 98.5 EKG: EKG: [] Radiology/Procedures: Radiology/Procedures: [] Course & Med Decision Making: Course & Med Decision Making Pertinent Labs and Imaging studies reviewed. (See chart for details) This is a 71-year-old female patient well-known to this ED presenting today to be evaluated for suicidal ideations. Patient lost her daughter May 05, 2021 from COVID-19 and today she could not handle the pressure and she broke down. Jenny from the pat team came and talked to patient. She is not actively suicidal, safety plan was established. She was discharged to home. Vanessa Disclaimer: Vanessa Disclaimer: This electronic medical record was generated, in whole or in part, using a voice recognition dictation system. Departure Departure Impression: Primary Impression: Suicidal ideation Disposition: 01 HOME / SELF CARE / HOMELESS Condition: STABLE Referrals: Meagan ALVAREZ MD (PCP) follow up as soon as you can Patient Instructions: Suicidal Feelings, How to Help Yourself Additional Instructions: You were evaluated in the emergency room, follow-up with the Dr. Alvarez's office as well as the counselor in the office. Also follow-up with resources provided by Jenny. Come back to the ED at any point symptoms worsen HEIDI BEACH APRN Jun 21, 2021 18:11
[2021-06-21 18:13] LABS: AMPHETAMINE/METHAMPHETAMINE NEG (NEG)
[2021-06-21 18:24] LABS: BACTERIA,URINE FEW /HPF (0-FEW)
[2021-06-21 18:25] LABS: RBC,URINE 0 /HPF (0-2)
[2021-06-21 18:31] LABS: BASO # 0.1 x10^3/uL (0.0-0.2); BASO % 1 % (0-3); EOS # 0.2 x10^3/uL (0.0-0.7); EOS % 2 % (0-3); HEMATOCRIT 40.4 % (36.0-47.0); LYMPH # 3.7 x10^3/uL (1.0-4.8); LYMPH % 40 % (24-48); MEAN CORPUSCULAR HEMOGLOBIN 29 pg (25-35); MEAN CORPUSCULAR HGB CONC 35 g/dL (31-37); MEAN CORPUSCULAR VOLUME 84 fL (79-100); MONO # 0.6 x10^3/uL (0.0-1.1); MONO % 7 % (0-9); NEUT # 4.6 x10^3/uL (1.8-7.7); NEUT % 50 % (31-73); PLATELET COUNT 306 x10^3/uL (140-400); RED BLOOD COUNT 4.79 x10^6/uL (3.50-5.40); RED CELL DISTRIBUTION WIDTH 15.7 % (11.5-14.5); WHITE BLOOD COUNT 9.2 x10^3/uL (4.0-11.0)
[2021-06-21 18:54] LABS: CALCIUM 8.7 mg/dL (8.5-10.1); CREATININE 0.9 mg/dL (0.6-1.0); GFR 61.9; POTASSIUM 3.4 mmol/L (3.5-5.1)
[2021-06-21 19:00] LABS: ALBUMIN 3.2 g/dL (3.4-5.0); ALBUMIN/GLOBULIN RATIO 0.7 (1.0-1.7); TOTAL BILIRUBIN 0.4 mg/dL (0.2-1.0); TOTAL PROTEIN 7.5 g/dL (6.4-8.2)
[2021-06-21 19:06] LABS: ACETAMIN < 2 mcg/ml (10-30); ETHANOL < 10 mg/dL (0-10); SALIC 0.6 mg/dL (2.8-20.0)
[2021-06-21 19:30] VITALS: BP 222/90
== END 2021-06-21 20:00 | disposition home or self-care (01) ==
LOC: ER 17:04
DX: R45.851 Suicidal ideations (principal); J44.9 Chronic obstructive pulmonary disease, unspecified; E11.9 Type 2 diabetes mellitus without complications; I10 Essential (primary) hypertension; Z86.711 Personal history of pulmonary embolism; Z79.01 Long term (current) use of anticoagulants; Z88.0 Allergy status to penicillin; Z88.2 Allergy status to sulfonamides; Z88.4 Allergy status to anesthetic agent; Z88.5 Allergy status to narcotic agent; Z91.041 Radiographic dye allergy status
CPT/HCPCS: 36415; 80053; 80307; 80329; 81001; 85025; 99285; G0480; 99283

== ENCOUNTER 2021-10-07 16:05 | Emergency (ER) | payer MEDICARE, OTHER ==
[~2021-10-07] VITALS: Ht 165.1 cm; Wt 117.2 kg
[2021-10-07] MEDS ORDERED: IPRATRPIUM/ALBUTEROL 0.5/2.5MG 3 ML NEBU. NEB ONE (16:15)
[2021-10-07] MEDS ORDERED: DEXAMETHASONE SOD PHOS 4 MG/ML VIAL IVP ONE (16:15)
[2021-10-07 16:45] LABS: BASO # 0.1 x10^3/uL (0.0-0.2); BASO % 1 % (0-3); EOS # 0.2 x10^3/uL (0.0-0.7); EOS % 2 % (0-3); HEMATOCRIT 40.8 % (36.0-47.0); HEMOGLOBIN 13.3 g/dL (12.0-15.5); LYMPH # 6.4 x10^3/uL (1.0-4.8); LYMPH % 57 % (24-48); MEAN CORPUSCULAR HEMOGLOBIN 28 pg (25-35); MEAN CORPUSCULAR HGB CONC 33 g/dL (31-37); MEAN CORPUSCULAR VOLUME 86 fL (79-100); MONO # 0.4 x10^3/uL (0.0-1.1); MONO % 4 % (0-9); NEUT # 4.1 x10^3/uL (1.8-7.7); NEUT % 36 % (31-73); PLATELET COUNT 278 x10^3/uL (140-400); RED BLOOD COUNT 4.75 x10^6/uL (3.50-5.40); RED CELL DISTRIBUTION WIDTH 14.7 % (11.5-14.5); WHITE BLOOD COUNT 11.2 x10^3/uL (4.0-11.0)
[2021-10-07 16:54] LABS: PROTHROMBIN TIME PATIENT 26.2 SEC (11.7-14.0)
[2021-10-07 16:59] LABS: CALCIUM 8.4 mg/dL (8.5-10.1); CREATININE 0.9 mg/dL (0.6-1.0); GFR 61.9; POTASSIUM 3.6 mmol/L (3.5-5.1)
[2021-10-07 17:04] LABS: ALBUMIN 3.1 g/dL (3.4-5.0); ALBUMIN/GLOBULIN RATIO 0.8 (1.0-1.7); TOTAL BILIRUBIN 0.3 mg/dL (0.2-1.0); TOTAL PROTEIN 6.9 g/dL (6.4-8.2)
--- NOTE | 2021-10-07 17:16 | RAD ---
XR CHEST 1V Clinical Indication: Reason: wheezing / Spl. Instructions: / History: Comparison: AP chest November 18, 2020. Findings: The right costophrenic angle is excluded. The cardiomediastinal silhouette is normal. Stable calcifie d granuloma left midlung. Lungs are clear. There is no pneumothorax. No pleural effusion is appreciat ed. No acute bone abnormality. There is left shoulder arthroplasty. IMPRESSION: No acute cardiopulmonary process. Electronically signed by: Elias Caldera MD (10/07/2021 5:14 PM) [facility]
[2021-10-07 17:43] VITALS: BP 178/78
[2021-10-07] MEDS ORDERED: DOXY100T PO (17:45)
--- NOTE | 2021-10-07 17:46 | PHYS DOC ---
Past Medical History Past Medical History: COPD, Diabetes-Type II, Other Additional Past Medical Histor: PE, chronic back/abdominal pain,OBESITY,SLEEP APNEA,BOWEL OBSTRUCTION Past Surgical History: Appendectomy, Cholecystectomy, Hysterectomy, Oophorectomy, Other Additional Past Surgical Histo: bilateral shoulders,hernia repair x's 7,bilateral cataracts,colon resection Smoking Status: Never Smoker Alcohol Use: None Drug Use: None General Adult EDM: Chief Complaint: SHORTNESS OF BREATH HPI: HPI: Patient is a 71 year old female with history of DM, HTN, asthma/COPD who presents with shortness of breath. Approximately 30 minutes prior to arrival the patient was in a nail salon and felt that she inhaled some chemicals that exacerbated her asthma. Received 2 DuoNeb's with EMS in route and feels that her breathing is improved. She has been coughing, not bringing much up. Denies any other preceding symptoms. No fevers or chills. No chest pain. Review of Systems: Review of Systems: Constitutional: Denies fever or chills. [] Eyes: Denies change in visual acuity. [] HENT: Denies nasal congestion or sore throat. [] Respiratory: Reports cough, wheezing, shortness of breath. Cardiovascular: Denies chest pain or edema. [] GI: Denies abdominal pain, nausea, vomiting, bloody stools or diarrhea. [] : Denies dysuria. [] Musculoskeletal: Denies back pain or joint pain. [] Integument: Denies rash. [] Neurologic: Denies headache, focal weakness or sensory changes. [] Endocrine: Denies polyuria or polydipsia. [] Lymphatic: Denies swollen glands. [] Psychiatric: Denies depression or anxiety. [] Heart Score: C/O Chest Pain: No Current Medications: Current Medications Medications (Trade) Dose Ordered Sig/Irish Start Time Stop Time Status Last Admin Dose Admin Albuterol/ Ipratropium (Duoneb) 3 ml 1X ONCE 10/07/21 16:15 10/07/21 16:19 DC 10/07/21 16:21 3 ML Dexamethasone Sodium Phosphate (Decadron) 4 mg 1X ONCE 10/07/21 16:15 10/07/21 16:19 DC 10/07/21 16:53 4 MG Lorazepam (Ativan Inj) 0.5 mg 1X ONCE 10/07/21 16:15 10/07/21 16:19 DC 10/07/21 16:53 0.5 MG Allergies: Allergies: Allergies Coded Allergies Type Severity Reaction Last Updated Verified Penicillins Allergy Severe itching, dry mouth, tongue swells 01/24/18 Yes Sulfa (Sulfonamide Antibiotics) Allergy Intermediate ITCHING DRY MOUTH, hives/swelling 12/16/15 Yes fentanyl Allergy Intermediate 12/16/15 Yes hydromorphone HCl Allergy Intermediate MORPHINE OK 12/16/15 Yes methylprednisolone Allergy Intermediate RED MAN SYNDROME 10/11/16 Yes prednisone Allergy Intermediate RED MED SYNDROME 10/11/16 Yes gluten Allergy Mild bloating 04/18/17 Yes I S O L A T I O N *CONTACT* Allergy Unknown 02/04/17 Yes oxycodone HCl Adverse Reaction Intermediate "i FEEL LIKE I HAVE WORMS IN ME" 12/16/15 Yes Physical Exam: PE: Constitutional: Patient sitting upright, talking in full sentences, but between takes deep breaths in. HENT: Normocephalic, atraumatic, Neck: Normal range of motion, no tenderness, supple, no stridor. [] Cardiovascular:Heart rate regular rhythm, no murmur [] Lungs & Thorax: Mild tachypnea. Mild end expiratory wheezes versus forcing air through closed glottis/referred upper airway sounds. Abdomen: Bowel sounds normal, soft, no tenderness, no masses, no pulsatile masses. [] Skin: Warm, dry, no erythema, no rash. [] Back: No tenderness, no CVA tenderness. [] Extremities: No tenderness, no cyanosis, no clubbing, ROM intact, no edema. [] Neurologic: Alert and oriented X 3, normal motor function, normal sensory function, no focal deficits noted. [] Psychologic: Affect normal, judgement normal, mood normal. [] Current Patient Data: Labs: Laboratory Tests Test 10/07/21 16:35 White Blood Count 11.2 x10^3/uL (4.0-11.0) H Red Blood Count 4.75 x10^6/uL (3.50-5.40) Hemoglobin 13.3 g/dL (12.0-15.5) Hematocrit 40.8 % (36.0-47.0) Mean Corpuscular Volume 86 fL (79-100) Mean Corpuscular Hemoglobin 28 pg (25-35) Mean Corpuscular Hemoglobin Concent 33 g/dL (31-37) Red Cell Distribution Width 14.7 % (11.5-14.5) H Platelet Count 278 x10^3/uL (140-400) Neutrophils (%) (Auto) 36 % (31-73) Lymphocytes (%) (Auto) 57 % (24-48) H Monocytes (%) (Auto) 4 % (0-9) Eosinophils (%) (Auto) 2 % (0-3) Basophils (%) (Auto) 1 % (0-3) Neutrophils # (Auto) 4.1 x10^3/uL (1.8-7.7) Lymphocytes # (Auto) 6.4 x10^3/uL (1.0-4.8) H Monocytes # (Auto) 0.4 x10^3/uL (0.0-1.1) Eosinophils # (Auto) 0.2 x10^3/uL (0.0-0.7) Basophils # (Auto) 0.1 x10^3/uL (0.0-0.2) Prothrombin Time 26.2 SEC (11.7-14.0) H Prothrombin Time INR 2.5 (0.8-1.1) H Sodium Level 141 mmol/L (136-145) Potassium Level 3.6 mmol/L (3.5-5.1) Chloride Level 100 mmol/L (98-107) Carbon Dioxide Level 29 mmol/L (21-32) Anion Gap 12 (6-14) Blood Urea Nitrogen 16 mg/dL (7-20) Creatinine 0.9 mg/dL (0.6-1.0) Estimated GFR (Cockcroft-Gault) 61.9 BUN/Creatinine Ratio 18 (6-20) Glucose Level 400 mg/dL (70-99) H Calcium Level 8.4 mg/dL (8.5-10.1) L Total Bilirubin 0.3 mg/dL (0.2-1.0) Aspartate Amino Transferase (AST) 16 U/L (15-37) Alanine Aminotransferase (ALT) 21 U/L (14-59) Alkaline Phosphatase 102 U/L (46-116) Total Protein 6.9 g/dL (6.4-8.2) Albumin 3.1 g/dL (3.4-5.0) L Albumin/Globulin Ratio 0.8 (1.0-1.7) L Laboratory Tests 10/07/21 16:35 Laboratory Tests 10/07/21 16:35 Vital Signs: Vital Signs Date Time Temp Pulse Resp B/P (MAP) Pulse Ox O2 Delivery O2 Flow Rate FiO2 10/07/21 16:21 96 Nasal Cannula 10/07/21 16:20 98.1 94 26 181/98 (125) 98.1 EKG: EKG: [] Radiology/Procedures: Radiology/Procedures: [] Impression: [facility] [address] [place] [address] IMAGING REPORT Signed PATIENT: ELY CARDOZA ACCOUNT: [id number] : 1950 LOCATION: ER AGE: 71 SEX: F EXAM STATUS: PRE ER ORD. PHYSICIAN: ZACH WOOD MD REASON: wheezing PROCEDURE: CHEST AP ONLY XR CHEST 1V Clinical Indication: Reason: wheezing / Spl. Instructions: / History: Comparison: AP chest November 18, 2020. Findings: The right costophrenic angle is excluded. The cardiomediastinal silhouette is normal. Stable calcified granuloma left midlung. Lungs are clear. There is no pneumothorax. No pleural effusion is appreciated. No acute bone abnormality. There is left shoulder arthroplasty. IMPRESSION: No acute cardiopulmonary process. Electronically signed by: Elias Caldera MD (10/07/2021 5:14 PM) [facility] DICTATED and SIGNED BY: ELIAS CALDERA MD DATE: 10/07/21 [id number] 0 Course & Med Decision Making: Course & Med Decision Making Pertinent Labs and Imaging studies reviewed. (See chart for details) Patient is 71-year-old female with history of asthma/COPD who presents with an acute exacerbation after being near chemicals in a nail salon. On arrival is mildly tachypneic, and appears anxious. Afebrile. HR 80-90, BP stable, satting 93-100% on RA. Faint expiratory wheezes versus referred upper airway sounds forcing air through close glottis. Ddx includes asthma/COPD exacerbation vs vocal cord dysfunction. Patient feeling much better after duoneb, dexamethasone, and 0.5 mg IV ativan. CXR clear. Labs show hyperglycemia without evidence of DKA or HHS. Feel she is safe for dc with continued duonebs and doxycycline for coverage of potential COPD exacerbation. Received dexamethasone so will not prescribe home steroids. Return precautions discussed. Vanessa Disclaimer: Vanessa Disclaimer: This electronic medical record was generated, in whole or in part, using a voice recognition dictation system. Departure Departure Impression: Primary Impression: COPD exacerbation Additional Impression: Hyperglycemia Disposition: 01 HOME / SELF CARE / HOMELESS Condition: STABLE Referrals: Meagan ALVAREZ MD (PCP) Patient Instructions: Chronic Obstructive Pulmonary Disease Exacerbation Additional Instructions: Continue to use your nebulizer treatments up to every 4 hours at home as needed. He received a long-acting steroid in the emergency department, so you will not need a steroid prescription. Please belt picker doxycycline and take full course as prescribed. Please return to the emergency department for worsening shortness of breath, fever/chills, or other new/concerning symptoms. Scripts Doxycycline Hyclate (DOXYCYCLINE HYCLATE) 100 Mg Tablet 1 TAB PO BID for 7 Days, #14 TAB 0 Refills Prov: ZACH WOOD MD 10/07/21 ZACH WOOD MD Oct 07, 2021 17:46
== END 2021-10-07 18:05 | disposition home or self-care (01) ==
LOC: ER 16:05
DX: J44.1 Chronic obstructive pulmonary disease with (acute) exacerbation (principal); E11.65 Type 2 diabetes mellitus with hyperglycemia; I10 Essential (primary) hypertension; Z88.0 Allergy status to penicillin; Z88.2 Allergy status to sulfonamides; Z88.4 Allergy status to anesthetic agent; Z88.5 Allergy status to narcotic agent; Z91.041 Radiographic dye allergy status; Z88.8 Allergy status to other drugs, medicaments and biological substances
CPT/HCPCS: 36415; 71045; 80053; 85025; 85610; 94640; 96374; 96375; 99284; J1100; J2060

== ENCOUNTER 2021-10-07 20:35 | Observation (INO) | payer MEDICARE, OTHER ==
[~2021-10-07] VITALS: Ht 165.1 cm; Wt 138.4 kg
[2021-10-07] MEDS ORDERED: IPRATRPIUM/ALBUTEROL 0.5/2.5MG 3 ML NEBU. NEB ONE (21:15)
[2021-10-07] MEDS ORDERED: DEXAMETHASONE SOD PHOS 20 MG/5 ML VIAL. IV ONE (21:15)
[2021-10-07] MEDS ORDERED: diazePAM 5 MG TABLET PO ONE (21:45)
[2021-10-07 23:01] LABS: INFLUENZA A PATIENT NEGATIVE (NEGATIVE); INFLUENZA B PATIENT NEGATIVE (NEGATIVE)
--- NOTE | 2021-10-08 01:38 | NUR ---
The patient, ELY CARDOZA, 71 y/o, F admitted by ELGIN YEE III, DO, was given written information regarding hospital policies, unit procedures and contact persons. Valuables were checked and left with her.
--- NOTE | 2021-10-08 02:29 | PHYS DOC ---
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 Reports she is prescribed Xopenex by her primary care physician Dr. Alvarez. Was seen just a few hours prior in the emergency department after inhaling fumes at a nail salon which triggered her asthma. Received 4 mg of Decadron, breathing treatments and Ativan for anxiety. Chest x-ray was normal. Labs did show hyperglycemia. Patient states she feels as if her asthma is poorly controlled. Is not on any home oxygen. Review of Systems: Review of Systems: Constitutional: Denies fever or chills. [] Eyes: Denies change in visual acuity. [] HENT: Denies nasal congestion or sore throat. [] Respiratory: Denies cough or hemoptysis Cardiovascular: Denies chest pain or edema. [] GI: Denies nausea or vomiting : Denies dysuria or hematuria Musculoskeletal: Denies back pain or joint pain. [] Integument: Denies rash or diaphoresis Neurologic: Denies headache, focal weakness or sensory changes. [] Endocrine: Denies polyuria or polydipsia. [] Lymphatic: Denies swollen glands. [] Psychiatric: Denies depression or anxiety. [] Heart Score: C/O Chest Pain: No Risk Factors: Risk Factors: DM, Current or recent (<one month) smoker, HTN, HLP, family history of CAD, obesity. Risk Scores: Score 0 - 3: 2.5% MACE over next 6 weeks - Discharge Home Score 4 - 6: 20.3% MACE over next 6 weeks - Admit for Clinical Observation Score 7 - 10: 72.7% MACE over next 6 weeks - Early Invasive Strategies Current Medications: Current Medications Medications (Trade) Dose Ordered Sig/Irish Start Time Stop Time Status Last Admin Dose Admin Albuterol/ Ipratropium (Duoneb) 9 ml 1X ONCE 10/07/21 21:15 10/07/21 21:16 DC 10/07/21 21:45 9 ML Dexamethasone Sodium Phosphate (Decadron) 6 mg 1X ONCE 10/07/21 21:15 10/07/21 21:16 DC 10/07/21 21:56 6 MG Allergies: Allergies: Allergies Coded Allergies Type Severity Reaction Last Updated Verified Penicillins Allergy Severe itching, dry mouth, tongue swells 10/07/21 Yes Sulfa (Sulfonamide Antibiotics) Allergy Intermediate ITCHING DRY MOUTH, hives/swelling 10/07/21 Yes fentanyl Allergy Intermediate 10/07/21 Yes hydromorphone HCl Allergy Intermediate MORPHINE OK 10/07/21 Yes methylprednisolone Allergy Intermediate RED MAN SYNDROME 10/07/21 Yes prednisone Allergy Intermediate RED MED SYNDROME 10/07/21 Yes gluten Allergy Mild bloating 04/18/17 Yes I S O L A T I O N *CONTACT* Allergy Unknown 02/04/17 Yes oxycodone HCl Adverse Reaction Intermediate "i FEEL LIKE I HAVE WORMS IN ME" 12/16/15 Yes Physical Exam: PE: Constitutional: Well developed, well nourished, no acute distress, non-toxic appearance, obese HENT: Normocephalic, atraumatic, Eyes: EOMI, conjunctiva normal, no discharge. Neck: Normal range of motion, supple, Cardiovascular: S1/2 present, regular rhythm Lungs & Thorax: Speaking in full sentences, bilateral equal chest rise, no tachypnea or increased work of breathing, no rales or crackles, very faint wheezing at the lung bases Abdomen: soft, no tenderness, Skin: Warm, dry, no erythema, no rash. [] Back: No tenderness, no CVA tenderness. [] Extremities: No tenderness, no cyanosis, Neurologic: Alert and oriented X 3, normal motor function, normal sensory function, no focal deficits noted. [] Psychologic: Anxious, normal judgment, very appreciative of her care Current Patient Data: Labs: Laboratory Tests Test 10/07/21 22:30 Influenza Type A Antigen Negative (NEGATIVE) Influenza Type B Antigen Negative (NEGATIVE) SARS-CoV-2 Antigen (Rapid) Negative (NEGATIVE) Vital Signs: Vital Signs Date Time Temp Pulse Resp B/P (MAP) Pulse Ox O2 Delivery O2 Flow Rate FiO2 10/08/21 02:00 Room Air 10/08/21 01:18 92 133/61 (85 94 10/07/21 20:49 98.1 24 98.1 EKG: EKG: [] Radiology/Procedures: Radiology/Procedures: [] Course & Med Decision Making: Course & Med Decision Making Pertinent Labs and Imaging studies reviewed. (See chart for details) Concern asthma exacerbation though I do suspect is more anxiety related given lung exam. She was given additional 6 mg of Decadron and breathing treatments by RT. Will admit for further medical management and monitoring. Patient stable time of admission and agrees to this plan. I have spoken with the patient and/or caregivers. I have explained the patient's condition, diagnosis and treatment plan based on the information available to me at this time. I have answered the patient's and/or caregivers questions and answered any concerns. The patient and/or caregivers have as good an understanding of the patient's diagnosis, condition and treatment plan as can be expected at this point. The patient has been stabilized within the capability of the emergency department. The patient will be transported for further care and management or will be moved to an observation or inpatient service. I have communicated with the staff or medical practitioner taking over this patient's care. Dragsoila Disclaimer: Dragon Disclaimer: This electronic medical record was generated, in whole or in part, using a voice recognition dictation system. Departure Departure Impression: Primary Impression: Asthma exacerbation Disposition: ADMITTED INPATIENT Admitting Physician: ALANNAH (Dr. Kaplan) Condition: STABLE Referrals: Meagan ALVAREZ MD (PCP) GALINDO MYERS DO Oct 08, 2021 02:29
[2021-10-08] MEDS ORDERED: POLYETHYLENE GLYCOL 3350 17 GM PACKET. PO PRN (02:30)
[2021-10-08] MEDS ORDERED: traMADol 50 MG TABLET PO PRN (02:30)
[2021-10-08] MEDS ORDERED: NAPROXEN 500 MG TABLET PO PRN (02:30)
[2021-10-08] MEDS ORDERED: ACETAMINOPHEN 325 MG TABLET. PO PRN (02:30)
[2021-10-08] MEDS: HYDROcodone/APAP 5/325MG 1 TAB TABLET PO PRN (02:43)
[2021-10-08] MEDS ORDERED: HYOSCYAMINE 0.125 MG TAB.RAPDIS PO PRN (02:45)
[2021-10-08] MEDS ORDERED: IV DEXTROSE 5% 250 ML BAG. IV PRN (03:00)
[2021-10-08] MEDS ORDERED: ONDANSETRON ODT 4 MG TAB.RAPDIS. PO PRN (03:00)
[2021-10-08] MEDS ORDERED: DEXTROSE 50% 25 GM / 50ML DISP.SYRIN. IV PRN (03:00)
[2021-10-08 03:14] VITALS: BP 189/97
[2021-10-08] MEDS: diphenhydrAMINE HCL 25 MG CAPSULE PO PRN ×3 (06:42→23:07)
[2021-10-08 07:00] VITALS: BP 171/60
[2021-10-08] MEDS ORDERED: IPRATRPIUM/ALBUTEROL 0.5/2.5MG 3 ML NEBU. NEB SCH (08:00)
[2021-10-08] MEDS: BUDESONIDE 0.5 MG/2 ML NEBU. NEB SCH ×4 (08:00→21:19)
[2021-10-08] MEDS: LUBIPROSTONE 24 MCG CAPSULE PO SCH ×2 (08:16→16:36)
[2021-10-08] MEDS: DULoxetine HCL 30 MG CAPSULE.DR PO SCH (08:16)
[2021-10-08] MEDS: ASPIRIN ENTERIC COATED 81 MG TABLET.DR. PO SCH (08:16)
[2021-10-08] MEDS: predniSONE 20 MG TABLET PO SCH (08:16)
[2021-10-08] MEDS: OMEGA-3 FATTY ACIDS/FISH OIL 1,000 MG CAPSULE. PO SCH (08:16)
[2021-10-08] MEDS: METOPROLOL SUCC 24HR ER 100 MG TAB.ER.24H. PO SCH (08:17)
[2021-10-08] MEDS: LISINOPRIL 20 MG TABLET PO SCH (08:17)
[2021-10-08] MEDS: PANTOPRAZOLE 40 MG TABLET.DR. PO SCH (08:17)
[2021-10-08] MEDS: CYCLOBENZAPRINE 10 MG TABLET. PO SCH ×3 (08:17→20:53)
[2021-10-08] MEDS: INSULIN LISPRO 300 UNITS/3 ML VIAL. SQ SCH ×3 (08:20→16:48)
--- NOTE | 2021-10-08 08:22 | PDOC1 ---
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 She is on chronic prednisone of 20 mg/day since 1997 since her diagnosis of asthma. Patient was at a nail salon prior to her arrival which she thinks triggered her asthma. Patient did receive 4 mg of Decadron and Ativan for anxiety before transfer. Patient is not on any home oxygen. Denies any fevers, chest pain, abdominal pain, diarrhea or hematuria or productive cough. Past Medical/Surgical History: PMH/PSH: Past Medical History: COPD, Diabetes-Type II, BLOOD CLOTS TO LUNGS Past Surgical History: CATARACT, HYST, RIGHT SHOULDER, HERNIA Allergies: Allergies: Coded Allergies: Penicillins (Verified Allergy, Severe, itching, dry mouth, tongue swells, 10/07/21) Sulfa (Sulfonamide Antibiotics) (Verified Allergy, Intermediate, ITCHING DRY MOUTH, hives/swelling, 10/07/21) fentanyl (Verified Allergy, Intermediate, 10/07/21) hydromorphone HCl (Verified Allergy, Intermediate, MORPHINE OK, 10/07/21) methylprednisolone (Verified Allergy, Intermediate, RED MAN SYNDROME, 10/07/21) prednisone (Verified Allergy, Intermediate, RED MED SYNDROME, 10/07/21) gluten (Verified Allergy, Mild, bloating, 04/18/17) "tummy bloats" I S O L A T I O N *CONTACT* (Verified Allergy, Unknown, 02/04/17) mrsa oxycodone HCl (Verified Adverse Reaction, Intermediate, "i FEEL LIKE I HAV E WORMS IN ME", 12/16/15) 06/28 TOLERATING HYDROCODONE/APAP Family History: Family History: Reviewed with no relevant findings in the chart Social History: Social History: Smoking Status: Never Smoker Alcohol Use: None Drug Use: None Current Medications: Current Medications Current Medications Dexamethasone Sodium Phosphate (Decadron) 6 mg 1X ONCE IV Last administered on 10/07/21at 21:56; Start 10/07/21 at 21:15; Stop 10/07/21 at 21:16; Status DC Albuterol/ Ipratropium (Duoneb) 9 ml 1X ONCE NEB Last administered on 10/07/21at 21:45; Start 10/07/21 at 21:15; Stop 10/07/21 at 21:16; Status DC Diazepam (Valium) 5 mg 1X ONCE PO Last administered on 10/07/21at 21:56; Start 10/07/21 at 21:45; Stop 10/07/21 at 21:46; Status DC Acetaminophen (Tylenol) 650 mg PRN BID PRN PO PAIN MILD; Start 10/08/21 at 02:30 Aspirin (Ecotrin) 81 mg DAILYWBKFT PO ; Start 10/08/21 at 08:00 Acetaminophen/ Hydrocodone Bitart (Lortab 5/325) 1 tab PRN Q6HRS PRN PO PAIN SEVERE Last administered on 10/08/21at 02:43; Start 10/08/21 at 02:30 Insulin Glargine (Lantus Syringe) 36 unit QHS SQ ; Start 10/08/21 at 21:00 Lisinopril (Prinivil) 40 mg DAILY PO ; Start 10/08/21 at 09:00 Metoprolol Succinate (Toprol Xl) 100 mg DAILY PO ; Start 10/08/21 at 09:00 Montelukast Sodium (Singulair) 10 mg HS PO ; Start 10/08/21 at 21:00 Naproxen (Naprosyn) 500 mg PRN BID PRN PO INFLAMMATION; Start 10/08/21 at 02:30 Fish Oil (Fish Oil) 1,000 mg DAILY PO ; Start 10/08/21 at 09:00 Polyethylene Glycol (miraLAX PACKET) 17 gm PRN DAILY PRN PO CONSTIPATION; Start 10/08/21 at 02:30 Tramadol HCl (Ultram) 50 mg PRN Q6HRS PRN PO PAIN MODERATE; Start 10/08/21 at 02:30 Diphenhydramine HCl (Benadryl) 25 mg PRN Q6HRS PRN PO ITCHING Last administered on 10/08/21at 06:42; Start 10/08/21 at 02:45 Duloxetine HCl (Cymbalta) 90 mg DAILY PO ; Start 10/08/21 at 09:00 Simvastatin (Zocor) 10 mg QHS PO ; Start 10/08/21 at 21:00 Budesonide (Pulmicort) 0.5 mg RTBID NEB ; Start 10/08/21 at 08:00 Hyoscyamine (Anaspaz) 0.125 mg PRN Q4HRS PRN PO STOMACH CRAMPING; Start 10/08/21 at 02:45 Insulin Human Lispro (HumaLOG) 20 units TIDWMEALS SQ ; Start 10/08/21 at 08:00 Pantoprazole Sodium (Protonix) 40 mg DAILYAC PO ; Start 10/08/21 at 07:30 Lubiprostone (Amitiza) 24 mcg BIDWMEALS PO ; Start 10/08/21 at 08:00 Ondansetron HCl (Zofran Odt) 4 mg PRN Q8HRS PRN PO NAUSEA/VOMITING Last administered on 10/08/21at 04:39; Start 10/08/21 at 03:00 Cyclobenzaprine HCl (Flexeril) 10 mg TID PO ; Start 10/08/21 at 09:00 Prednisone (Prednisone) 50 mg DAILY08 PO ; Start 10/08/21 at 08:00 Albuterol/ Ipratropium (Duoneb) 3 ml RTQID NEB ; Start 10/08/21 at 08:00 Warfarin Sodium (Coumadin) 10 mg DAILY16 PO ; Start 10/08/21 at 16:00 Warfarin Sodium (Coumadin Per Pharmacy) 1 each PRN DAILY PRN MC SEE COMMENTS; Start 10/08/21 at 02:45 EZETIMIBE (Zetia) 10 mg QHS PO ; Start 10/08/21 at 21:00 Dextrose (Dextrose 50%-Water Syringe) 12.5 gm PRN Q15MIN PRN IV SEE COMMENTS; Start 10/08/21 at 03:00 Dextrose (Iv Dextrose 5%) 250 ml PRN Q15MIN PRN IV SEE COMMENTS; Start 10/08/21 at 03:00 Active Scripts Active Doxycycline Hyclate 100 Mg Tablet 1 Tab PO BID 7 Days Hydrocodone-Apap 5-325 (Hydrocodone Bit/Acetaminophen) 1 Tab Tablet 1 Tab PO PRN Q6HRS PRN Orphenadrine Citrate 100 Mg Tablet.er 1 Tab PO BID Diphenhydramine Hcl 50 Mg Capsule 1 Cap PO PRN Q6-8HRS PRN 10 Days Prednisone 50 Mg Tablet 1 Tab PO DAILY 5 Days [place] 5-325 Tablet (Acetaminophen/Hydrocodone Bitart) 1 Each Tablet 1 Tab PO PRN Q6HRS PRN Lansoprazole 30 Mg Capsule. 1 Cap PO DAILY 30 Days Tramadol Hcl 50 Mg Tablet 50 Mg PO PRN Q6HRS PRN 6 Days Levsin-Sl (Hyoscyamine Sulfate) 0.125 Mg Tab.subl 0.125 Mg SL Q4-6HRS PRN Lisinopril 40 Mg Tablet 1 Tab PO DAILY Polyethylene Glycol 3350 17 Gm Powd.pack 17 Gm PO PRN DAILY PRN 30 Days Aspirin Ec (Aspirin) 81 Mg Tablet. 81 Mg PO DAILYWBKFT 30 Days Linzess (Linaclotide) 145 Mcg Capsule 145 Mcg PO DAILY07 30 Days Fish Oil 1,000 Mg Capsule (Embudo-3 Fatty Acids/Fish Oil) 1 Each Capsule 1,000 Mg PO DAILY 30 Days Reported Tylenol (Acetaminophen) 325 Mg Tablet 650 Mg PO PRN BID PRN Naproxen 500 Mg Tablet 500 Mg PO PRN BID PRN Zofran (Ondansetron Hcl) 4 Mg Tablet 4 Mg PO BID Metoprolol Succinate ( Xl ) (Metoprolol Succinate) 100 Mg Tab.er.24h 100 Mg PO DAILY Novolog (Insulin Aspart) 100 Unit/1 Ml Vial 20 Units SQ TID Lantus (Insulin Glargine,Hum.rec.anlog) 100 Unit/1 Ml Vial 36 Units SQ QHS Warfarin Sodium 10 Mg Tablet 10 Mg PO DAILY Vytorin 10-10 Mg Tablet (Ezetimibe/Simvastatin) 1 Each Tablet 1 Each PO HS Xopenex Hfa (Levalbuterol Tartrate) 15 Gm Hfa.aer.ad 15 Gm IH PRN BID PRN Spiriva (Tiotropium [place]) 18 Mcg Cap.w.dev 18 Mcg IH DAILY Advair 250-50 Diskus (Fluticasone/Salmeterol) 1 Each Disk.w.dev 1 Each IH BID94 Cymbalta (Duloxetine Hcl) 60 Mg Capsule. 90 Mg PO DAILY Singulair Tablet (Montelukast Sodium) 10 Mg Tablet 10 Mg PO HS ROS: Review of Systems Review of System REVIEW OF SYSTEMS: GENERAL: Denies weakness SKIN: No bruising, hair changes or rashes. EYES: No blurred, double or loss of vision. NOSE AND THROAT: No history of nosebleeds, hoarseness or sore throat. HEART: No history of palpitations, chest pain or shortness of breath on exertion. LUNGS: Denies cough, hemoptysis, wheezing or shortness of breath. GASTROINTESTINAL: Denies changes in appetite, nausea, vomiting, diarrhea or constipation. GENITOURINARY: No history of frequency, urgency, hesitancy or nocturia. NEUROLOGIC: Denies history of numbness, tingling, or tremor. PSYCHIATRIC: No history of panic, anxiety or depression. ENDOCRINE: No history of heat or cold intolerance, polyuria or polydipsia. EXTREMITIES: Denies joint pain, pain on walking or stiffness. Physical Exam: Vital Signs: Vital Signs Date Time Temp Pulse Resp B/P (MAP) Pulse Ox O2 Delivery O2 Flow Rate FiO2 10/08/21 07:00 98.1 80 18 171/60 (97) 95 Room Air 98.1 Physcial Exam: General: Well developed, well nourished, no acute distress, well appearing HEENT: Pupils equally round and reactive to light, EOMI, no discharge, normal conjunctiva Neck: Supple, no nuchal rigidity, no JVD, trachea midline, no tenderness Cardiac: RRR, no murmurs, no gallops, no rubs Chest/Lungs: CTAB, bilateral wheezing in the lung bases no rhonchi, no crackles Abdomen: soft, non-distended, no guarding, no peritoneal signs, non-tender Back: No tenderness Extremities: no edema, pulses intact, non-tender,capillary refill <3 sec bilateral upper and lower extremities, Neuro: Alert and oriented x 4, no focal deficits, normal speech Labs: Labs: Laboratory Tests Test 10/07/21 22:30 10/08/21 07:19 Influenza Type A Antigen Negative (NEGATIVE) Influenza Type B Antigen Negative (NEGATIVE) SARS-CoV-2 Antigen (Rapid) Negative (NEGATIVE) Glucose (Fingerstick) 435 mg/dL (70-99) Laboratory Tests Test 10/07/21 22:30 10/08/21 07:19 Influenza Type A Antigen Negative (NEGATIVE) Influenza Type B Antigen Negative (NEGATIVE) SARS-CoV-2 Antigen (Rapid) Negative (NEGATIVE) Glucose (Fingerstick) 435 mg/dL (70-99) Images: Images No recent images to review Assessment/Plan Assessment/Plan Acute asthma exacerbation History of diabetes mellitus type 2 History of hypertension History of asthma History of PE Admit to hospitalist service for further management Continue IV steroids Pulmicort and DuoNebs as needed Combivent inhaler while waiting for PCR for Covid. Warfarin for DVT prophylaxis Protonix GI prophylaxis ADA diet CODE STATUS full Discussed with RN and SW Disposition inpatient management as above DPOA: Daughter Justifications for Admission Other Justification ROBIN DOMINGUEZ MD Oct 08, 2021 08:22
[2021-10-08 08:49] LABS: PROTHROMBIN TIME PATIENT 26.4 SEC (11.7-14.0)
[2021-10-08] MEDS ORDERED: MINERAL OIL/PETROLATUM TOPICAL CREAM 113GM JAR. TP PRN (10:45)
--- NOTE | 2021-10-08 11:50 | NUR ---
Pharmacy Warfarin Dosing Note S: Pharmacy consulted to assist with anticoagulation therapy started CYANIDE POT HARDENER O: ELY CARDOZA is a 71 year old F with HX: DVT/PE Last INR: 2.5 Ongoing Drug Interactions: CYMBALTA, NAPROSYN A:INR of 2.5 is within desired range. Target range for this patient is: 2 -3 P: Warfarin dose: 10 mg Daily Bridge Therapy: None Next INR due 10/09/21 AM Pharmacy anticoagulation service will continue to follow. NEGAR WEBBER [facility], 10/08/21 [id number]
[2021-10-08] MEDS: FLUTICASONE FUROATE 100mcg/INH ELLIPTA INHALER. INH SCH (11:57)
[2021-10-08] MEDS: DIPHENHYDRAMINE/ZINC ACETATE 2%/0.1% TOPICAL CREAM 28GM TUBE. TP PRN (11:57)
[2021-10-08] MEDS: IPRATROPIUM/ALBUTEROL 20/100mcg/INH INHALER. INH SCH ×3 (11:57→20:53)
[2021-10-08] MEDS ORDERED: WARFARIN 5 MG TABLET. PO SCH (16:00)
[2021-10-08 19:30] VITALS: BP 146/63
[2021-10-08] MEDS ORDERED: SIMVASTATIN 10 MG TABLET PO SCH (21:00)
[2021-10-08] MEDS ORDERED: INSULIN GLARGINE SYRINGE. SQ SCH (21:00)
[2021-10-08] MEDS ORDERED: EZETIMIBE 10 MG TABLET. PO SCH (21:00)
[2021-10-08] MEDS ORDERED: MONTELUKAST SODIUM 10 MG TABLET. PO SCH (21:00)
[2021-10-08 23:42] VITALS: BP 152/78
[2021-10-09 03:28] VITALS: BP 141/60
[2021-10-09] MEDS: HYDROcodone/APAP 5/325MG 1 TAB TABLET PO PRN ×2 (03:53→10:09)
[2021-10-09 07:00] VITALS: BP 165/63
[2021-10-09 07:54] LABS: PROTHROMBIN TIME PATIENT 30.5 SEC (11.7-14.0)
[2021-10-09] MEDS: BUDESONIDE 0.5 MG/2 ML NEBU. NEB SCH (08:03)
[2021-10-09] MEDS: DIPHENHYDRAMINE/ZINC ACETATE 2%/0.1% TOPICAL CREAM 28GM TUBE. TP PRN (08:29)
[2021-10-09] MEDS: diphenhydrAMINE HCL 25 MG CAPSULE PO PRN (08:29)
[2021-10-09] MEDS: DULoxetine HCL 30 MG CAPSULE.DR PO SCH (08:30)
[2021-10-09] MEDS: CYCLOBENZAPRINE 10 MG TABLET. PO SCH ×2 (08:31→14:00)
[2021-10-09] MEDS: METOPROLOL SUCC 24HR ER 100 MG TAB.ER.24H. PO SCH (08:33)
[2021-10-09] MEDS: ASPIRIN ENTERIC COATED 81 MG TABLET.DR. PO SCH (08:34)
[2021-10-09] MEDS: PANTOPRAZOLE 40 MG TABLET.DR. PO SCH (08:34)
[2021-10-09] MEDS: LUBIPROSTONE 24 MCG CAPSULE PO SCH (08:34)
[2021-10-09] MEDS: predniSONE 20 MG TABLET PO SCH (08:34)
[2021-10-09] MEDS: OMEGA-3 FATTY ACIDS/FISH OIL 1,000 MG CAPSULE. PO SCH (08:34)
[2021-10-09 08:35] VITALS: BP 165/63
[2021-10-09] MEDS: LISINOPRIL 20 MG TABLET PO SCH (08:35)
[2021-10-09] MEDS: INSULIN LISPRO 300 UNITS/3 ML VIAL. SQ SCH ×2 (08:49→12:00)
[2021-10-09] MEDS ORDERED: DEXAMETHASONE SOD PHOS 4 MG/ML VIAL IVP SCH (09:00)
[2021-10-09] MEDS: FLUTICASONE FUROATE 100mcg/INH ELLIPTA INHALER. INH SCH (09:10)
[2021-10-09] MEDS: IPRATROPIUM/ALBUTEROL 20/100mcg/INH INHALER. INH SCH ×2 (09:10→12:53)
--- NOTE | 2021-10-09 11:33 | NUR ---
Pharmacy Warfarin Dosing Note S:Pharmacy consulted to assist with anticoagulation therapy started with target INR: 2 -3 O:ELY CARDOZA is a 71 year old F with HX: DVT/PE LABS: Last INR: 3.0 Last HGB: Last HCT: Last PLT: Last dose of 10mg FISH DRIER given on 10/08/21 at 1700 Previous Regimen: 10mg PO DAILY FISH DRIER Vitamin K given: N Drug Interaction Changes: Same Interacting Drug Ongoing Drug Interactions: CYMBALTA, NAPROSYN A:INR of 3.0 is within desired range. Target range for this patient is: 2 -3 P: Warfarin dose: 8 mg Today at 1600 Bridge Therapy: None Next INR due in am Pharmacy anticoagulation service will continue to follow. RAMYA DALLAS [facility], 10/09/21 [id number]
[2021-10-09] MEDS ORDERED: [UNRECOGNIZED DRUG - CODE] TP (12:34)
[2021-10-09] MEDS ORDERED: PRED20TA PO (12:34)
[2021-10-09] MEDS ORDERED: DIPH14SO2 TP (12:34)
--- NOTE | 2021-10-09 12:36 | DISCH ---
DISCHARGE INSTRUCTIONS Condition on Discharge Condition on Discharge: Stable Activity After Discharge Activity Instructions for Disc: Activity as tolerated Bathing Instructions: Shower-keep dressing dry Lifting Instructions after Dis: No heavy lifting, No pulling or pushing, Do not lift >10 pounds Exercise Instruction after Dis: Progress as tolerated Driving Instructions after Dis: Do not drive today Weight Bearing Status after Di: No restrictions Diet after Discharge Diet after Discharge: Cardiac Additional Diet Restrictions: Clear liquids as needed Diet Texture: Regular Liquid Texture: Thin Liquid Swallowing Supervision: None needed Wound Incision Care Wound/Incision Care: No wound care needed Wound Care Equipment: Dressings Checks after Discharge Checks after discharge: Check blood press - daily, Check blood sugar, ac/hs, Weigh Yourself Daily Contacting the DR. after DC Call your doctor for: If your condition worsens Follow-Up Follow up with: PCP within 2 weeks of discharge Treatment/Equipment after DC Adaptive Equipment Issued: None ROBIN DOMINGUEZ MD Oct 09, 2021 12:36
--- NOTE | 2021-10-09 12:41 | NUR ---
SW following. Discussed with RN, pt from home with family, room air, ada diet, COVID-19 negative. Discharge order for home with self care. RN advised no SW needs.
--- NOTE | 2021-10-09 14:21 | NUR ---
Patient did not want to take 1400 dose of flexeril as she is getting ready to be discharged to home.
--- NOTE | 2021-10-09 15:15 | NUR ---
Patient discharged to home via wheelchair with all personal belongings and discharge paperwork.
[2021-10-09] MEDS ORDERED: WARFARIN 4 MG TABLET. PO ONE (16:00)
--- NOTE | 2021-10-14 08:35 | PDOC3 ---
[facility]-Discharge Summary Date of Admission: Date of Admission: Oct 08, 2021 Date of Discharge: Date of Discharge: Oct 09, 2021 Discharge Diagnosis: Discharge Diagnosis: Acute asthma exacerbation History of diabetes mellitus type 2 History of hypertension History of asthma History of PE Hospital Course: Hospital Course: 71-year-old female with past medical history of diabetes mellitus type 2, hypertension, asthma, history of DVT currently on warfarin who comes in with shortness of breath and what she believes is an asthma exacerbation. She is on chronic prednisone of 20 mg/day since 1997 since her diagnosis of asthma. Patient was at a nail salon prior to her arrival which she thinks triggered her asthma. Patient did receive 4 mg of Decadron and Ativan for anxiety before transfer. Patient is not on any home oxygen. Denies any fevers, chest pain, abdominal pain, diarrhea or hematuria or productive cough. By day of discharge, pt was clinically stable and ready for discharge. She will be discharged with 5 days of prednisone and f/u with her PCP. Rest of hospital course was uneventful Disposition: Disposition/Orders: D/C to Home Activity: Activity: Resume previous activity Diet: Diet: Cardiac Medications: Home Meds Active Scripts Diphenhydramine Hcl/Zinc Acet (BENADRYL ITCH RELIEF STICK) 14 Ml Solution, 14 ML TP Q8HRS PRN for ITCHING for 10 Days, #1 MISC Prov:ROBIN DOMINGUEZ MD 10/09/21 Diphenhydramine Hcl/Zinc Acet (BENADRYL ITCH COOLING SPRAY) 59 Ml [place], 1 [place] TP BID PRN for ITCHING for 5 Days, #1 BOTTLE 0 Refills Prov:ROBIN DOMINGUEZ MD 10/09/21 Prednisone (PREDNISONE) 20 Mg Tablet, 1 TAB PO BID for asthma exacerbation for 3 Days, #6 TAB Prov:ROBIN DOMINGUEZ MD 10/09/21 Doxycycline Hyclate (DOXYCYCLINE HYCLATE) 100 Mg Tablet, 1 TAB PO BID for 7 Days, #14 TAB 0 Refills Prov:ZACH WOOD MD 10/07/21 Hydrocodone Bit/Acetaminophen (HYDROCODONE-APAP 5-325 ) 1 Tab Tablet, 1 TAB PO PRN Q6HRS PRN for PAIN, #4 TAB 0 Refills Prov:RICCO REDDY DO 06/19/21 Orphenadrine Citrate (ORPHENADRINE CITRATE) 100 Mg Tablet.er, 1 TAB PO BID for muscle spasm, #14 TAB 1 Refill Prov:RICCO REDDY DO 06/19/21 Diphenhydramine Hcl (DIPHENHYDRAMINE HCL) 50 Mg Capsule, 1 CAP PO PRN Q6-8HRS PRN for ALLERGIC REACTION for 10 Days, #30 CAP 1 Refill Prov:GABRIELA WEBB MD 11/18/20 Hydrocodone/Apap 5-325 (NORCO 5-325 TABLET) 1 Each Tablet, 1 TAB PO PRN Q6HRS PRN for PAIN, #10 TAB 0 Refills Prov:RAMU DOUGLAS DO 06/16/20 Lansoprazole (LANSOPRAZOLE) 30 Mg Capsule., 1 CAP PO DAILY for Chest pain, abdominal pain for 30 Days, #30 CAP 0 Refills Prov:JEAN-PAUL FRANK MD 06/05/20 Tramadol Hcl (TRAMADOL HCL) 50 Mg Tablet, 50 MG PO PRN Q6HRS PRN for PAIN for 6 Days, #15 TAB Prov:JEAN-PAUL FRANK MD 06/05/20 Hyoscyamine Sulfate (LEVSIN-SL) 0.125 Mg Tab.subl, 0.125 MG SL Q4-6HRS PRN for PAIN, #14 TAB Prov:CHRISTI VILLAGRAN DO 05/28/20 Lisinopril (LISINOPRIL) 40 Mg Tablet, 1 TAB PO DAILY for htn, chf, #30 TAB 5 Refills Prov:EVELIO CARDOZA MD 01/31/20 Polyethylene Glycol 3350 (POLYETHYLENE GLYCOL 3350) 17 Gm Powd.pack, 17 GM PO PRN DAILY PRN for CONSTIPATION for 30 Days, #30 PKT Prov:TAE SWEENEY MD 01/08/20 Aspirin (ASPIRIN EC) 81 Mg Tablet., 81 MG PO DAILYWBKFT for antiplatelet for 30 Days, #30 TAB.SR Prov:CHRISTI ARMSTRONG MD 09/24/19 Linaclotide (LINZESS) 145 Mcg Capsule, 145 MCG PO DAILY07 for 30 Days, #30 CAP Prov:Meagan ALVAREZ MD 01/24/18 [place]-3 Fatty Acids/Fish Oil (FISH OIL 1,000 MG CAPSULE) 1 Each Capsule, 1000 MG PO DAILY for 30 Days, #30 CAP 11 Refills Prov:Meagan ALVAREZ MD 01/24/18 Reported Medications Acetaminophen (TYLENOL) 325 Mg Tablet, 650 MG PO PRN BID PRN for PAIN, TAB 06/03/20 Naproxen (NAPROXEN) 500 Mg Tablet, 500 MG PO PRN BID PRN for PAIN 06/03/20 Ondansetron Hcl (ZOFRAN) 4 Mg Tablet, 4 MG PO BID for , TAB 06/03/20 Metoprolol Succinate (METOPROLOL SUCCINATE ( XL )) 100 Mg Tab.er.24h, 100 MG PO DAILY for 06/03/20 Insulin Aspart (NOVOLOG) 100 Unit/1 Ml Vial, 20 UNITS SQ TID for DM 06/03/20 Insulin Glargine,Hum.rec.anlog (LANTUS) 100 Unit/1 Ml Vial, 36 UNITS SQ QHS for DM 06/03/20 Warfarin Sodium (WARFARIN SODIUM) 10 Mg Tablet, 10 MG PO DAILY for DVT, TAB 03/12/19 Ezetimibe/Simvastatin (VYTORIN 10-10 MG TABLET) 1 Each Tablet, 1 EACH PO HS, TAB 06/21/14 Levalbuterol Tartrate (XOPENEX HFA) 15 Gm Hfa.aer.ad, 15 GM IH PRN BID PRN for SHORTNESS OF BREATH 09/02/13 Tiotropium [place] (SPIRIVA) 18 Mcg Cap.w.dev, 18 MCG IH DAILY 09/02/13 Fluticasone/Salmeterol (ADVAIR 250-50 DISKUS) 1 Each Disk.w.dev, 1 EACH IH BID94 09/02/13 Duloxetine Hcl (CYMBALTA) 60 Mg Capsule.dr, 90 MG PO DAILY 09/02/13 Montelukast Sodium (SINGULAIR TABLET ) 10 Mg Tablet, 10 MG PO HS 08/17/13 Discontinued Scripts Prednisone (PREDNISONE) 50 Mg Tablet, 1 TAB PO DAILY for steroid for 5 Days, #5 TAB Prov:GABRIELA WEBB MD 11/18/20 Scheduled Aspirin (Aspirin Ec), 81 MG PO DAILYWBKFT Doxycycline Hyclate (Doxycycline Hyclate), 1 TAB PO BID Duloxetine Hcl (Cymbalta), 90 MG PO DAILY, (Reported) Ezetimibe/Simvastatin (Vytorin 10-10 Mg Tablet), 1 EACH PO HS, (Reported) Fluticasone/Salmeterol (Advair 250-50 Diskus), 1 EACH IH BID94, (Reported) Insulin Aspart (Novolog), 20 UNITS SQ TID, (Reported) Insulin Glargine,Hum.rec.anlog (Lantus), 36 UNITS SQ QHS, (Reported) Lansoprazole (Lansoprazole), 1 CAP PO DAILY Linaclotide (Linzess), 145 MCG PO DAILY07 Lisinopril (Lisinopril), 1 TAB PO DAILY Metoprolol Succinate (Metoprolol Succinate ( Xl )), 100 MG PO DAILY, (Reported) Montelukast Sodium (Singulair Tablet ), 10 MG PO HS, (Reported) [place]-3 Fatty Acids/Fish Oil (Fish Oil 1,000 Mg Capsule), 1,000 MG PO DAILY Ondansetron Hcl (Zofran), 4 MG PO BID, (Reported) Orphenadrine Citrate (Orphenadrine Citrate), 1 TAB PO BID Prednisone (Prednisone), 1 TAB PO BID Tiotropium [place] (Spiriva), 18 MCG IH DAILY, (Reported) Warfarin Sodium (Warfarin Sodium), 10 MG PO DAILY, (Reported) Scheduled PRN Acetaminophen (Tylenol), 650 MG PO PRN BID PRN for PAIN, (Reported) Diphenhydramine Hcl (Diphenhydramine Hcl), 1 CAP PO PRN Q6-8HRS PRN for ALLERGIC REACTION Diphenhydramine Hcl/Zinc Acet (Benadryl Itch Cooling [place]), 1 [place] TP BID PRN for ITCHING Diphenhydramine Hcl/Zinc Acet (Benadryl Itch Relief Stick), 14 ML TP Q8HRS PRN for ITCHING Hydrocodone Bit/Acetaminophen (Hydrocodone-Apap 5-325 ), 1 TAB PO PRN Q6HRS PRN for PAIN Hydrocodone/Apap 5-325 ([place] 5-325 Tablet), 1 TAB PO PRN Q6HRS PRN for PAIN Hyoscyamine Sulfate (Levsin-Sl), 0.125 MG SL Q4-6HRS PRN for PAIN Levalbuterol Tartrate (Xopenex Hfa), 15 GM IH PRN BID PRN for SHORTNESS OF BREATH, (Reported) Naproxen (Naproxen), 500 MG PO PRN BID PRN for PAIN, (Reported) Polyethylene Glycol 3350 (Polyethylene Glycol 3350), 17 GM PO PRN DAILY PRN for CONSTIPATION Tramadol Hcl (Tramadol Hcl), 50 MG PO PRN Q6HRS PRN for PAIN Discontinued Medications Prednisone (Prednisone), 1 TAB PO DAILY Total Time: Total Time: Total time spent was 32 minutes in preparing scripts and discharge planning with SW and RN. Patient seen and examined on day of Discharge. Justicifation of Admission Dx: Justifications for Admission: Justification of Admission Dx: N/A ROBIN DOMINGUEZ MD Oct 14, 2021 08:35
== END 2021-10-09 15:15 | disposition home or self-care (01) ==
LOC: ER 20:35 → ED HOLD 21:29 → INTOOBSV 21:29 → 5 SOUTH 10-08 01:08
PROVIDERS: ADMIT Internal Medicine; ATTEND Internal Medicine
DX: J45.901 Unspecified asthma with (acute) exacerbation (principal); Z20.822 Contact with and (suspected) exposure to COVID-19; I10 Essential (primary) hypertension; E11.65 Type 2 diabetes mellitus with hyperglycemia; F41.9 Anxiety disorder, unspecified; Z79.52 Long term (current) use of systemic steroids; Z86.711 Personal history of pulmonary embolism; Z86.718 Personal history of other venous thrombosis and embolism; Z98.49 Cataract extraction status, unspecified eye; Z90.710 Acquired absence of both cervix and uterus; Z79.899 Other long term (current) drug therapy; Z98.890 Other specified postprocedural states; Z79.82 Long term (current) use of aspirin; Z79.4 Long term (current) use of insulin
CPT/HCPCS: 36415; 82962; 85610; 87428; 94640; 96374; 96376; 99284; G0378; J1100; J1815; J7512; J7626; Q0163; U0003; G0379; 99285-25

== ENCOUNTER 2021-11-24 22:00 | Emergency (ER) | payer MEDICARE, OTHER ==
[~2021-11-24] VITALS: Ht 165.1 cm; Wt 123.4 kg
[~2021-11-24 22:00] MED LIST changes: +DIPH14SO2 TP; +[UNRECOGNIZED DRUG - CODE] TP
[2021-11-25 00:52] LABS: BASO % 1 % (0-3); EOS # 0.4 x10^3/uL (0.0-0.7); EOS % 4 % (0-3); HEMATOCRIT 39.6 % (36.0-47.0); HEMOGLOBIN 13.2 g/dL (12.0-15.5); LYMPH # 3.6 x10^3/uL (1.0-4.8); LYMPH % 36 % (24-48); MEAN CORPUSCULAR HEMOGLOBIN 29 pg (25-35); MEAN CORPUSCULAR HGB CONC 33 g/dL (31-37); MEAN CORPUSCULAR VOLUME 85 fL (79-100); MONO # 0.7 x10^3/uL (0.0-1.1); MONO % 7 % (0-9); NEUT # 5.2 x10^3/uL (1.8-7.7); NEUT % 52 % (31-73); PLATELET COUNT 281 x10^3/uL (140-400); RED BLOOD COUNT 4.64 x10^6/uL (3.50-5.40); RED CELL DISTRIBUTION WIDTH 15.1 % (11.5-14.5); WHITE BLOOD COUNT 9.9 x10^3/uL (4.0-11.0)
[2021-11-25] MEDS ORDERED: MORPHINE SULFATE 4 MG/ML INJ. IVP ONE (01:00)
[2021-11-25 01:27] LABS: CALCIUM 9.5 mg/dL (8.5-10.1); CREATININE 0.9 mg/dL (0.6-1.0); GFR 61.9; POTASSIUM 3.9 mmol/L (3.5-5.1)
[2021-11-25 01:34] LABS: ALBUMIN 3.3 g/dL (3.4-5.0); ALBUMIN/GLOBULIN RATIO 0.8 (1.0-1.7); TOTAL BILIRUBIN 0.3 mg/dL (0.2-1.0); TOTAL PROTEIN 7.4 g/dL (6.4-8.2)
[2021-11-25] MEDS ORDERED: CONTRAST GIVEN. MC PRN (01:45)
[2021-11-25 01:57] LABS: BACTERIA,URINE FEW /HPF (0-FEW); RBC,URINE 0 /HPF (0-2); WBC,URINE OCC /HPF (0-4)
[2021-11-25] MEDS ORDERED: IOHEXOL 300 MG/ML 100ML VIAL. IV ONE (02:00)
--- NOTE | 2021-11-25 02:29 | RAD ---
Exam: CT abdomen/pelvis with intravenous contrast Indication: Abdominal pain, history of small bowel obstruction. Comparison: CT abdomen pelvis 04/28/2021 Technique: Helical CT imaging performed of the abdomen and pelvis after the intravenous administratio n of 75 mL Omnipaque 300 contrast. Sagittal and coronal reformats were obtained. One or more of the following individualized dose reduction techniques were utilized for this examinat ion: 1. Automated exposure control 2. Adjustment of the mA and/or kV according to patient size 3. Use of iterative reconstruction technique. Findings: Lower chest: Unremarkable. Liver: The liver is enlarged measuring 21 cm craniocaudally. No focal liver lesion. Gallbladder/Biliary Tree: Gallbladder is surgically absent. Bile ducts are normal. Pancreas: Normal. Spleen: Normal. Adrenal Glands: Normal. Kidneys/Ureters/Bladder: Kidneys are normal in size and enhance symmetrically. No hydronephrosis. Ure ters are unremarkable. The bladder is decompressed, limiting evaluation.. Reproductive Organs: Uterus is surgically absent. No adnexal mass. Stomach, small bowel, and colon: The stomach is normal. There is no small bowel obstruction. The appe ndix is nonvisualized. The colon is normal. Vasculature: Abdominal aorta is normal in caliber. Mild calcified atherosclerosis. Lymph Nodes: No lymphadenopathy. Peritoneum and retroperitoneum: No free fluid or free air. Bones: No acute osseous abnormality. Mild to moderate degenerative disc disease, unchanged. Mild dege nerative joint disease of the hips. Miscellaneous: Surgical changes of ventral hernia repair. Impression: 1. No acute abnormalities in the abdomen and pelvis. 2. Hepatomegaly. Electronically signed by: Nohemy Aquino MD (11/25/2021 2:27 AM) [facility]
[2021-11-25] MEDS ORDERED: POLY17PO29 PO (03:47)
[2021-11-25] MEDS ORDERED: MAGN296S68 PO (03:47)
[2021-11-25] MEDS ORDERED: ONDA4TAB12 PO (03:47)
--- NOTE | 2021-11-25 03:53 | PHYS DOC ---
Past Medical History Past Medical History: COPD, Diabetes-Type II, Other Additional Past Medical Histor: chronic abd pain, chronic back pain, PEs Past Surgical History: Cholecystectomy, Hysterectomy, Other Additional Past Surgical Histo: hernia repair x 2 Smoking Status: Never Smoker Alcohol Use: None Drug Use: None General Adult EDM: Chief Complaint: ABDOMINAL PAIN HPI: HPI: Patient is a 71 year old female who presents with abdominal pain. Localized to the middle abdomen. Has some nausea but no vomiting. No diarrhea. She is passing some gas and some stool. History of multiple abdominal surgeries including a cholecystectomy and appendectomy. She is also had multiple hernias repaired. Possible history of small bowel obstruction as well. Had a segment of her colon removed due to a possible intussusception per her description. Pain onset 2 days ago. Today has gotten significantly worse. No melena or hematochezia. No blood in her vomit. No dysuria urgency or frequency. Review of Systems: Review of Systems: Constitutional: Denies fever or chills. [] Eyes: Denies change in visual acuity. [] HENT: Denies nasal congestion or sore throat. [] Respiratory: Denies cough or shortness of breath. [] Cardiovascular: Denies chest pain or edema. [] GI: Positive for nausea and abdominal pain : Denies dysuria. [] Musculoskeletal: Denies back pain or joint pain. [] Integument: Denies rash. [] Neurologic: Denies headache, focal weakness or sensory changes. [] Endocrine: Denies polyuria or polydipsia. [] Lymphatic: Denies swollen glands. [] Psychiatric: Denies depression or anxiety. [] Heart Score: C/O Chest Pain: No Risk Factors: Risk Factors: DM, Current or recent (<one month) smoker, HTN, HLP, family history of CAD, obesity. Risk Scores: Score 0 - 3: 2.5% MACE over next 6 weeks - Discharge Home Score 4 - 6: 20.3% MACE over next 6 weeks - Admit for Clinical Observation Score 7 - 10: 72.7% MACE over next 6 weeks - Early Invasive Strategies Current Medications: Current Medications Medications (Trade) Dose Ordered Sig/Irish Start Time Stop Time Status Last Admin Dose Admin Info (CONTRAST GIVEN -- Rx MONITORING) 1 each PRN DAILY PRN 11/25/21 01:45 11/27/21 01:44 Iohexol (Omnipaque 300 Mg/ml) 75 ml 1X ONCE 11/25/21 02:00 11/25/21 02:01 DC 11/25/21 01:45 75 ML Morphine Sulfate (Morphine Sulfate) 4 mg 1X ONCE 11/25/21 01:00 11/25/21 01:01 DC 11/25/21 00:45 4 MG Allergies: Allergies: Allergies Coded Allergies Type Severity Reaction Last Updated Verified Penicillins Allergy Severe itching, dry mouth, tongue swells 10/07/21 Yes Sulfa (Sulfonamide Antibiotics) Allergy Intermediate ITCHING DRY MOUTH, hives/swelling 10/07/21 Yes fentanyl Allergy Intermediate 10/07/21 Yes hydromorphone HCl Allergy Intermediate MORPHINE OK 10/07/21 Yes methylprednisolone Allergy Intermediate RED MAN SYNDROME 10/07/21 Yes prednisone Allergy Intermediate RED MED SYNDROME 10/07/21 Yes gluten Allergy Mild bloating 04/18/17 Yes I S O L A T I O N *CONTACT* Allergy Unknown 02/04/17 Yes oxycodone HCl Adverse Reaction Intermediate "i FEEL LIKE I HAVE WORMS IN ME" 12/16/15 Yes Physical Exam: PE: Constitutional: Well developed, well nourished, no acute distress, non-toxic appearance. [] HENT: Normocephalic, atraumatic, bilateral external ears normal, oropharynx moist, no oral exudates, nose normal. [] Eyes: PERRLA, EOMI, conjunctiva normal, no discharge. [] Neck: Normal range of motion, no tenderness, supple, no stridor. [] Cardiovascular:Heart rate regular rhythm, no murmur [] Lungs & Thorax: Bilateral breath sounds clear to auscultation [] Abdomen: Bowel sounds normal, soft, no tenderness, no masses, no pulsatile masses. [] Skin: Warm, dry, no erythema, no rash. [] Back: No tenderness, no CVA tenderness. [] Extremities: No tenderness, no cyanosis, no clubbing, ROM intact, no edema. [] Neurologic: Alert and oriented X 3, normal motor function, normal sensory function, no focal deficits noted. [] Psychologic: Affect normal, judgement normal, mood normal. [] Current Patient Data: Labs: Laboratory Tests Test 11/25/21 00:40 11/25/21 01:13 11/25/21 01:37 White Blood Count 9.9 x10^3/uL (4.0-11.0) Red Blood Count 4.64 x10^6/uL (3.50-5.40) Hemoglobin 13.2 g/dL (12.0-15.5) Hematocrit 39.6 % (36.0-47.0) Mean Corpuscular Volume 85 fL (79-100) Mean Corpuscular Hemoglobin 29 pg (25-35) Mean Corpuscular Hemoglobin Concent 33 g/dL (31-37) Red Cell Distribution Width 15.1 % (11.5-14.5) H Platelet Count 281 x10^3/uL (140-400) Neutrophils (%) (Auto) 52 % (31-73) Lymphocytes (%) (Auto) 36 % (24-48) Monocytes (%) (Auto) 7 % (0-9) Eosinophils (%) (Auto) 4 % (0-3) H Basophils (%) (Auto) 1 % (0-3) Neutrophils # (Auto) 5.2 x10^3/uL (1.8-7.7) Lymphocytes # (Auto) 3.6 x10^3/uL (1.0-4.8) Monocytes # (Auto) 0.7 x10^3/uL (0.0-1.1) Eosinophils # (Auto) 0.4 x10^3/uL (0.0-0.7) Basophils # (Auto) 0.0 x10^3/uL (0.0-0.2) Lactic Acid Level 1.6 mmol/L (0.4-2.0) Sodium Level 130 mmol/L (136-145) L Potassium Level 3.9 mmol/L (3.5-5.1) Chloride Level 96 mmol/L (98-107) L Carbon Dioxide Level 28 mmol/L (21-32) Anion Gap 6 (6-14) Blood Urea Nitrogen 28 mg/dL (7-20) H Creatinine 0.9 mg/dL (0.6-1.0) Estimated GFR (Cockcroft-Gault) 61.9 BUN/Creatinine Ratio 31 (6-20) H Glucose Level 392 mg/dL (70-99) H Calcium Level 9.5 mg/dL (8.5-10.1) Total Bilirubin 0.3 mg/dL (0.2-1.0) Aspartate Amino Transferase (AST) 19 U/L (15-37) Alanine Aminotransferase (ALT) 23 U/L (14-59) Alkaline Phosphatase 117 U/L (46-116) H Troponin I High Sensitivity 14 ng/L (4-50) Total Protein 7.4 g/dL (6.4-8.2) Albumin 3.3 g/dL (3.4-5.0) L Albumin/Globulin Ratio 0.8 (1.0-1.7) L Lipase 281 U/L (73-393) Urine Collection Type Unknown Urine Color (Auto) Light yellow Urine Turbidity Clear Urine pH (Auto) 5.5 (<5.0-8.0) Urine Specific [place] 1.029 (1.000-1.030) Urine Protein (Auto) 50 mg/dL (Negative) Urine Glucose (Auto)(UA) >=1000 mg/dL (Negative) Urine Ketones (Auto) 10 mg/dL (Negative) Urine Blood (Auto) Negative (Negative) Urine Nitrite Negative (Negative) Urine Bilirubin (Auto) Negative (Negative) Urine Urobilinogen (Auto) Normal mg/dL (Normal) Urine Leukocyte Esterase (Auto) Negative (Negative) Urine RBC 0 /HPF (0-2) Urine WBC Occ /HPF (0-4) Urine Squamous Epithelial Cells Mod /LPF Urine Bacteria Few /HPF (0-FEW) Urine Mucus Slight /LPF Laboratory Tests 11/25/21 00:40 Laboratory Tests 11/25/21 01:13 Vital Signs: Vital Signs Date Time Temp Pulse Resp B/P (MAP) Pulse Ox O2 Delivery O2 Flow Rate FiO2 11/25/21 00:45 23 97 Room Air 11/25/21 00:16 96 204/84 (124) 11/24/21 22:10 99.1 99.1 EKG: EKG: [] Radiology/Procedures: Radiology/Procedures: [] Course & Med Decision Making: Course & Med Decision Making Pertinent Labs and Imaging studies reviewed. (See chart for details) Given her age I performed a CT scan and labs which are unremarkable. However she does have a significant amount of stool in her colon. Therefore I will put her on medications for constipation and have her follow-up. I also instructed her to return if she began having significant nausea and vomiting with abdominal distention. At time of discharge patient abdominal exam is completely normal. She has no rebound rigidity or guarding. Dragon Disclaimer: Dragon Disclaimer: This electronic medical record was generated, in whole or in part, using a voice recognition dictation system. Departure Departure Impression: Primary Impression: Constipation Disposition: HOME HEALTH CARE SERVICE Condition: GOOD Referrals: Meagan ALVAREZ MD (PCP) Patient Instructions: Constipation, Adult Scripts Ondansetron (ONDANSETRON ODT) 4 Mg Tab.rapdis 4 MG PO BID PRN for NAUSEA/VOMITING for 7 Days, #14 TAB Prov: FINA NATHAN MD 11/25/21 Magnesium Citrate (MAGNESIUM CITRATE) 296 Ml Solution 296 ML PO ONCE, #296 ML Prov: FINA NATHAN MD 11/25/21 Polyethylene Glycol 3350 (MIRALAX) 17 Gm Powd.pack 1 PACKET PO DAILY for constipation, #30 PACKET 0 Refills dissolve in water Prov: FINA NATHAN MD 11/25/21 FINA NATHAN MD Nov 25, 2021 03:53
[2021-11-25 04:13] VITALS: BP 206/78
[2021-11-25] MEDS ORDERED: IOHEXOL 300 MG/ML 100ML VIAL. ONE (06:28)
--- NOTE | 2021-11-27 11:47 | EKG ---
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
== END 2021-11-25 04:25 | disposition home health service (06) ==
LOC: ER 22:00
DX: K59.00 Constipation, unspecified (principal); G89.29 Other chronic pain; E11.9 Type 2 diabetes mellitus without complications; J44.9 Chronic obstructive pulmonary disease, unspecified; Z90.49 Acquired absence of other specified parts of digestive tract; Z90.710 Acquired absence of both cervix and uterus
CPT/HCPCS: 36415; 74177; 80053; 81001; 83605; 83690; 84484; 85025; 93005; 96374; 99284; J2270; Q9967